=== PATIENT | male | born 1945 | race Caucasian/White ===

== ENCOUNTER 2017-11-11 15:00 | Outpatient (RCR) | payer MEDICARE, BC, SELFPAY ==
--- NOTE | 2017-10-29 14:58 | HP.PTEVAL ---
Patient's Visit Information ANTOINE PEREZ is a 72 year old M referred to Physical Therapy by Jluis Velazco with a diagnosis of Cervical DDD. Date of Evaluation: 10/29/17 Physical Therapist: Carissa Buchanan - Visit Plan Frequency: 2x /Week Duration: 2 Weeks Plan: HEP--Focus on scap s/s and postural awareness- modalities as needed with manual therapy for STM and gently distraction - Subjective Subjective: Patient reports that he has been having trouble with his neck- went to [facility] and they took x-rays and diagnosed him with arthritis. Went last fall and had a predisone dose pack. It comes and goes. Pain is located on the left side and it gives him a HERNANDEZ. Normally once a week- he comes down with a HERNANDEZ. thinks its from mowing the lawn and working outside. Worst: 6/10 Agg: being on his mower. Eases: Meloxicam (15-20 years), Tylenol, rest. Best: 0/10. Describes pain as dull and achy. No N/T in the fingers- no radiating pain. 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 Sleep: occassionally- hard to get comfortable. left hand dominated. PMhx: HTN, cholesterol, multiple knee surgeries,. Meds: flomax, HTN, Meloxicam, cholesterol medication - Objective Posture: FH, RS, Increased kyphosis- raised CT Junction. Palpation: tender along parapsinals of the cervical spine from occiput to Ct Junction on the left>right. upper trap to the tip of the acromion. ROM: cervical flex: decreased by 50% extn: decreased by 25%, SB: decreased by 75% bilateral Rot: decreased by 50%. UE: WNL. Sensation: Reflex: wnl bilaterally. Strength: cervical isometrics: 4+/5, Shoulder: 4+/5 Scap: fair plus. Special Test: compression: positive, distraction: decreases s/s - Goals Goal 1:: Patient will be I with HEP and progression Goal Time Frame: 4-6 Weeks Goal 2:: Patient emerson improve ROM by 25% in each direction Goal Time Frame: 4-6 Weeks Goal 3:: Patient will report 0 HERNANDEZ for 1 week Goal Time Frame: 4-6 Weeks - Rehabilitation Potential Physical Therapy Diagnosis: Patient presents with hypomobility- he has decreasd ROM, strength and muscular endurance leading to poor posture and increased pain Rehabilitation Potential: Good - Anticipated Interventions Patient/Client Instruction: Educate patient on: Benefits of Fitness Program For the Purpose of:: To improve ability to perform ADL's Therapeutic Exercise to Include: Strength training, Endurance training, Agility training, Body mechanics, Postural training For the Purpose of:: To improve muscle performance and motor function Manual Therapy Techniques to Include: Soft tissue mobilization TENS: Yes Cryotherapy (ice pack, ice massage): Yes Thermo therapy (hot pack): Yes Ultrasound (thermal/non thermal): Yes For the Purpose of:: To decrease pain Thank you for the opportunity to evaluate your patient. For Medicare and Medicare HMO plans, please review the plan of care and approve it. It will need to be FAXED BACK to us at [phone] for Medicare purposes. Please let me know if there are questions or concerns regarding this plan of care. Physician Signature: Date:
--- NOTE | 2017-11-11 15:22 | HP.PTDCSUM ---
HP - PT D/C Summary It has been my pleasure to treat ANTOINE PEREZ under orders from Jluis Velazco, for the diagnosis of Cervical DDD for a total of 5 visit(s). Discharge Date: Please see the following information for a summary of their discharge status. - Subjective Subjective: Patient reports that he thinks he is better. Gets sore after looking at the newspaper. Changed his posture on his mower which has helped. No HERNANDEZ - Pain left cerv Pain Intensity (Out of 10): 0 - Overall Improvement % Improvement: 75 - Objective Objective/Function: Posture: FH, RS, Increased kyphosis- raised CT Junction. Palpation: tender along parapsinals of the cervical spine from occiput to Ct Junction on the left>right. upper trap to the tip of the acromion. ROM: cervical flex: decreased by 25% extn: decreased by 15%, SB: decreased by 50% bilateral Rot: decreased by 25%. UE: WNL. Sensation: Reflex: wnl bilaterally. Strength: cervical isometrics: 4+/5, Shoulder: 4+/5 Scap: fair plus. Special Test: compression: positive, distraction: decreases s/s - Goals Goal 1:: Patient will be I with HEP and progression Goal Progress: Goal Met Goal 2:: Patient emerson improve ROM by 25% in each direction Goal Progress: Goal Met Goal 3:: Patient will report 0 HERNANDEZ for 1 week Goal Progress: Goal Met - Plan Plan: Discharge from PT- Continue HEP - D/C Information If there are questions or concerns regarding this patient's physical therapy, please feel free to call me at [phone]. Thank you for the referral of this patient. Sincerely, Carissa Buchanan
== END 2017-11-11 19:00 | disposition home or self-care (01) ==
LOC: PT 15:00
PROVIDERS: Family Provider Family Medicine Geriatric Medicine; PCP Family Medicine Geriatric Medicine; Visit Provider Internal Medicine Rheumatology
DX: M47.812 Spondylosis without myelopathy or radiculopathy, cervical region (principal)
CPT/HCPCS: 97110; 97140; 97162; 97164; 97530

== ENCOUNTER → 2018-02-19 10:59 | Outpatient (CLI) | payer MEDICARE, BC, SELFPAY ==
[2018-02-19 12:23] LABS: Absolute Lymphocyte Count 1.81 X10^3/ul (0.83-4.51); Absolute Neutrophil Count 4.4 X10^3/uL (2.0-7.7); Basophil# 0.01 X10^3/uL; Basophil% 0.1 % (0-1); Eosinophil# 0.23 X10^3/uL; Eosinophils% 3.2 % (0-5); Hematocrit 41.6 % (40-54); Hemoglobin 13.7 g/dl (13.0-16.5); Lymphocyte # 1.81 X10^3/ul (4.0); Lymphocyte % 25.4 % (19-41); Mean Corp Hgb Conc 32.9 g/gl (32-36); Mean Corpuscular Hgb 32.9 pg (27.0-32.0); Mean Corpuscular Volume 99.8 fL (80-94); Mean Platelet Vol. 12.5 fl (6.2-12.0); Monocyte# 0.68 X10^3/uL; Monocyte% 9.5 % (0-10); Neutrophil # 4.38 X10^3/uL (2.7-7.7); Neutrophil % 61.5 % (47-70); Platelet Count 160 K/mm3 (150-450); RBC Distribution Width CV 13.3 % (11.6-14.6); Red Blood Count 4.17 M/mm3 (4.6-6.2); White Blood Count 7.1 K/mm3 (4.4-11.0)
[2018-02-19 12:28] LABS: POSITIVE COUNT NO; POSITIVE DIFFERENTIAL NO; POSITIVE MORPHOLOGY NO
[2018-02-19 13:00] LABS: ALB/GLOB Ratio 1.1 RATIO (0.9-2.4); AST(SGOT) 15 U/L (15-37); Alanine Aminotransfer ALT/SGPT 35 U/L (16-61); Albumin, Serum 3.9 g/dL (3.2-5.0); Alkaline Phosphatase 78 U/L (45-117); Anion Gap 8 (5-15); BUN 18 mg/dL (7-18); Calcium,Total 9.2 mg/dL (8.5-10.1); Chloride 103 mmol/L (98-107); Creatinine, Serum 0.69 mg/dL (0.70-1.30); EST Glomerular Filtration Rate 119 mL/min (>60); Est Glom Filt Rate - Afr Amer 144 mL/min (>60); Globulin 3.4 g/dL (2.2-4.2); Glucose 95 mg/dL (74-106); Protein, Total 7.3 g/dL (6.4-8.2); Sodium Level 139 mmol/L (136-145); Thyroid Stim Hormone (TSH) 0.84 uIU/mL (0.358-3.74); Uric Acid 4.1 mg/dL (3.5-7.2)
[2018-02-19 13:01] LABS: Vitamin D,25 Hydroxy 51.5 ng/mL (29.95-100.01)
[2018-02-20 13:48] LABS: Hep C Antibodies <0.1 s/co ratio (0.0-0.9)
== END ==
PROVIDERS: Family Provider Family Medicine Geriatric Medicine; PCP Family Medicine Geriatric Medicine; Visit Provider Family Medicine Geriatric Medicine
DX: E55.9 Vitamin D deficiency, unspecified (principal); I10 Essential (primary) hypertension; M10.9 Gout, unspecified; Z13.89 Encounter for screening for other disorder
CPT/HCPCS: 36415; 80053; 82306; 84443; 84550; 85025; 86803

== ENCOUNTER 2018-03-09 09:35 | Day surgery (SDC) | payer MEDICARE, BC, SELFPAY ==
[2018-03-09] VITALS (7 sets, daily range): BP systolic 100–146; BP diastolic 62–96; PULSE 63–95; RESP 16–18; TEMP 36.2–36.9; O2SAT 94–97; BMI 30.2
--- NOTE | 2018-03-09 11:08 | OP.ENDO_ITS ---
Patient Name: Al Cordova Procedure Date: 03/09/2018 10:36 AM Date of : 1945 Age: 72 Procedure: Colonoscopy Indications: High risk colon cancer surveillance: Personal history of colonic polyps Providers: Sunny Grant MD Referring MD: Sunny Grant MD Medicines: See the Anesthesia note for documentation of the administered medications Patient Profile: Last Colonoscopy: February 2015. Complications: No immediate complications. Procedure: Pre-Anesthesia Assessment: - Prior to the procedure, a History and Physical was performed, and patient medications and allergies were reviewed. The patient's tolerance of previous anesthesia was also reviewed. The risks and benefits of the procedure and the sedation options and risks were discussed with the patient. All questions were answered, and informed consent was obtained. Prior Anticoagulants: The patient has taken no previous anticoagulant or antiplatelet agents. ASA Grade Assessment: III - A patient with severe systemic disease. After reviewing the risks and benefits, the patient was deemed in satisfactory condition to undergo the procedure. After I obtained informed consent, the scope was passed under direct vision. Throughout the procedure, the patient's blood pressure, pulse, and oxygen saturations were monitored continuously. The colonoscope was introduced through the anus and advanced to the cecum, identified by appendiceal orifice and ileocecal valve. The colonoscopy was performed without difficulty. The patient tolerated the procedure well. The quality of the bowel preparation was adequate to identify polyps 6 mm and larger in size. Scope In: 10:46:08 AM Scope Withdrawal Time 0 hours 6 minutes 29 seconds Scope Out: 11:00:40 AM Total Procedure Duration Time 0 hours 14 minutes 32 seconds Findings: The colon (entire examined portion) appeared normal. No biopsies or other specimens were collected for this exam. Impression: - The entire examined colon is normal. No specimens collected. Recommendation: - Discharge patient to home. - Resume previous diet. - Continue present medications. - Repeat colonoscopy in 10 years for screening purposes. - Return to primary care physician PRN. Procedure Code(s): --- Professional --- G0105, Colorectal cancer screening; colonoscopy on individual at high risk Diagnosis Code(s): --- Professional --- Z86.010, Personal history of colonic polyps CPT copyright 2017 [employer]. All rights reserved. The codes documented in this report are preliminary and upon ultrasound coordinator review may be revised to meet current compliance requirements. MD Sunny Dodson MD 03/09/2018 11:07:45 AM This report has been signed electronically. Number of Addenda: 0 Note Initiated On: 03/09/2018 10:36 AM
== END 2018-03-09 11:40 | disposition home or self-care (01) ==
LOC: EN 09:35 → AC 09:37
PROVIDERS: Family Provider Family Medicine Geriatric Medicine; PCP Family Medicine Geriatric Medicine; Referring Provider Surgery; Visit Provider Surgery
PROC: 0DJD8ZZ Inspection of Lower Intestinal Tract, Via Natural or Artificial Opening Endoscopic (ICD-10-PCS; CPT 45378; principal; 2018-03-09 10:55)
DX: Z86.010 Personal history of colon polyps (principal); E78.49 Other hyperlipidemia; E78.00 Pure hypercholesterolemia, unspecified; I10 Essential (primary) hypertension; M19.90 Unspecified osteoarthritis, unspecified site; Z87.19 Personal history of other diseases of the digestive system; Z90.49 Acquired absence of other specified parts of digestive tract; Z79.899 Other long term (current) drug therapy; Z87.891 Personal history of nicotine dependence
CPT/HCPCS: G0105; J7120

== ENCOUNTER → 2018-05-27 16:20 | Outpatient (CLI) | payer OTHER, MEDICARE, BC, SELFPAY ==
[2018-03-09 09:53] VITALS: BMI 30.2
--- NOTE | 2018-05-27 16:45 | RAD_ITS ---
STUDY: X-RAY - CERVICAL SPINE REASON FOR EXAM: Male, 72 years old. chronic neck pain TECHNIQUE: 3 view(s) of the cervical spine were obtained. COMPARISON: None FINDINGS: Normal cervical lordosis. There is multi-level endplate spondylosis. There is multi-level degenerative disc disease with multilevel disc space narrowing. The soft tissue structures are unremarkable. RAD/Cerv Spine 2 or 3 Views IMPRESSION: Degenerative changes of the spine. Electronically Signed: Luisa Marie MD at 8:29 EST Tel , Service support ,
== END ==
PROVIDERS: Family Provider Family Medicine Geriatric Medicine; PCP Family Medicine Geriatric Medicine; Referring Provider Family Medicine Geriatric Medicine; Visit Provider Family Medicine Geriatric Medicine
DX: M54.2 Cervicalgia (principal)
CPT/HCPCS: 72040

== ENCOUNTER → 2018-07-23 11:16 | Outpatient (CLI) | payer MEDICARE, BC, SELFPAY ==
[2018-07-09 15:05] VITALS: BMI 34.9
[2018-07-22 13:59] VITALS: BMI 34.9
[2018-07-23 13:05] LABS: PSA,Total- Diagnostic 4.12 ng/mL (0.0-4.0)
== END ==
PROVIDERS: Family Provider Family Medicine Geriatric Medicine; PCP Family Medicine Geriatric Medicine; Referring Provider Urology; Visit Provider Urology
DX: R97.20 Elevated prostate specific antigen [PSA] (principal)
CPT/HCPCS: 36415; 84153

== ENCOUNTER → 2019-02-18 11:27 | Outpatient (CLI) | payer MEDICARE, BC, SELFPAY ==
[2018-03-09 09:53] VITALS: BMI 30.2
[2018-09-21 14:05] VITALS: BMI 34.9
[2019-02-18 12:43] LABS: Absolute Lymphocyte Count 1.78 X10^3/uL (0.83-4.51); Absolute Neutrophil Count 4.9 X10^3/uL (2.0-7.7); Basophil# 0.04 X10^3/uL; Basophil% 0.5 % (0-1); Eosinophil# 0.11 X10^3/uL; Eosinophils% 1.4 % (0-5); Hematocrit 41.1 % (40-54); Hemoglobin 13.6 g/dL (13.0-16.5); Lymphocyte # 1.78 X10^3/ul (4.0); Lymphocyte % 23.3 % (19-41); Mean Corp Hgb Conc 33.1 g/dL (32-36); Mean Corpuscular Hgb 33.3 pg (27.0-32.0); Mean Corpuscular Volume 100.7 fL (80-94); Mean Platelet Vol. 12.7 fl (6.2-12.0); Monocyte# 0.79 X10^3/uL; Monocyte% 10.3 % (0-10); NRBC Flagged by Analyzer 0 % (0-5); Neutrophil # 4.85 X10^3/uL (2.7-7.7); Neutrophil % 63.6 % (47-70); Platelet Count 167 K/mm3 (150-450); RBC Distribution Width CV 13.2 % (11.6-14.6); RBC Distribution Width SD 48.8 fl (35.1-43.9); Red Blood Count 4.08 M/mm3 (4.6-6.2); White Blood Count 7.6 K/mm3 (4.4-11.0)
[2019-02-18 13:05] LABS: Vitamin D,25 Hydroxy 57.8 ng/mL (29.95-100.01)
[2019-02-18 13:10] LABS: ALB/GLOB Ratio 1.1 RATIO (0.9-2.4); AST(SGOT) 21 U/L (15-37); Alanine Aminotransfer ALT/SGPT 50 U/L (16-61); Alkaline Phosphatase 86 U/L (45-117); Anion Gap 3 (5-15); BUN 18 mg/dL (7-18); BUN/Creat Ratio 23.5 RATIO (10-20); Calcium,Total 9.3 mg/dL (8.5-10.1); Chloride 104 mmol/L (98-107); Creatinine, Serum 0.77 mg/dL (0.70-1.30); EST Glomerular Filtration Rate 106 mL/min (>60); Est Glom Filt Rate - Afr Amer 128 mL/min (>60); Globulin 3.6 g/dL (2.2-4.2); Glucose 104 mg/dL (74-106); Potassium 4.2 mmol/L (3.5-5.1); Protein, Total 7.6 g/dL (6.4-8.2); Sodium Level 137 mmol/L (136-145); Thyroid Stim Hormone (TSH) 0.97 uIU/mL (0.358-3.74); Uric Acid 4.4 mg/dL (3.5-7.2)
== END ==
PROVIDERS: Family Provider Family Medicine Geriatric Medicine; PCP Family Medicine Geriatric Medicine; Visit Provider Family Medicine Geriatric Medicine
DX: E55.9 Vitamin D deficiency, unspecified (principal); I10 Essential (primary) hypertension; M10.9 Gout, unspecified
CPT/HCPCS: 36415; 80053; 82306; 84443; 84550; 85025

== ENCOUNTER → 2019-12-10 13:44 | Outpatient (CLI) | payer MEDICARE, BC, SELFPAY ==
[2018-09-21 14:05] VITALS: BMI 34.9
[2019-12-10 15:28] LABS: PSA,Total- Diagnostic 6.25 ng/mL (0.0-4.0)
== END ==
PROVIDERS: PCP Family Medicine Geriatric Medicine; Referring Provider Urology; Visit Provider Urology
DX: R97.20 Elevated prostate specific antigen [PSA] (principal)
CPT/HCPCS: 36415; 84153

== ENCOUNTER 2020-01-05 15:18 | Inpatient (IN) | payer MEDICARE, BC, SELFPAY ==
[2018-09-21 14:05] VITALS: BMI 34.9
[2020-01-05] VITALS (19 sets, daily range): BP systolic 78–146; BP diastolic 58–100; PULSE 100–143; RESP 18–31; TEMP 36.5–37.3; O2SAT 89–95; BMI 36.3; BMI 35.9
[2020-01-05] MEDS: Adenosine 6 MG/2 ML Syringe IV (15:46)
[2020-01-05] MEDS: dilTIAZem 25 MG/5 ML Vial IV BOLUS (15:49)
--- NOTE | 2020-01-05 15:53 | EKG12_ITS ---
Test Reason : Blood Pressure : / mmHG Vent. Rate : 105 BPM Atrial Rate : 133 BPM P-R Int : 000 ms QRS Dur : 156 ms QT Int : 410 ms P-R-T Axes : 000 -46 099 degrees QTc Int : 541 ms Atrial Flutter Left axis deviation Left bundle branch block Abnormal ECG Confirmed by AMRITA JULIEN, CLAUDIO ([id number]), loan expeditor MAGEN REYEZ ([id number]) on 01/07/2020 2:40:50 PM Referred By: RYLEY Confirmed By:KIM CROWE MD
[2020-01-05 16:06] LABS: Absolute Lymphocyte Count 1.37 X10^3/uL (0.83-4.51); Basophil# 0.02 X10^3/uL; Basophil% 0.2 % (0-1); Eosinophil# 0.25 X10^3/uL; Eosinophils% 2.5 % (0-5); Hematocrit 40.4 % (40-54); Hemoglobin 13.4 g/dL (13.0-16.5); Lymphocyte # 1.37 X10^3/ul (4.0); Mean Corp Hgb Conc 33.2 g/dL (32-36); Mean Corpuscular Hgb 33.5 pg (27.0-32.0); Mean Platelet Vol. 13.6 fl (6.2-12.0); Monocyte# 1.07 X10^3/uL; Monocyte% 10.9 % (0-10); NRBC Flagged by Analyzer 0 % (0-5); Neutrophil # 7.04 X10^3/uL (2.7-7.7); Neutrophil % 71.8 % (47-70); Platelet Count 178 K/mm3 (150-450); RBC Distribution Width CV 13.8 % (11.6-14.6); RBC Distribution Width SD 50.4 fl (35.1-43.9); White Blood Count 9.8 K/mm3 (4.4-11.0)
--- NOTE | 2020-01-05 16:10 | RAD_ITS ---
STUDY: X-RAY CHEST REASON FOR EXAM: Male, 74 years old. Seen at doctor''s office for shortness of breath. EKG showed SVT. TECHNIQUE: Single AP portable view of the chest. COMPARISON: 02/07/2012. FINDINGS: The lungs are well expanded. There is increased density at both lung bases similar to the prior study thought to be chronic scarring. There is no new mass or infiltrate. There is no demonstrated pleural abnormality. The heart is mildly enlarged. Normal mediastinum and preethi. Normal visualized pulmonary arteries. Normal visualized aortic arch and descending thoracic aorta. There are diffuse degenerative changes of the visualized thoracic spine. Normal visualized ribs, clavicles, and shoulders. There is no demonstrated abnormality of the visualized soft tissue structures of the upper abdomen. RAD/Chest 1 View (Portable) IMPRESSION: 1. Mild cardiomegaly. 2. Bibasilar densities thought to be chronic. There is no acute pulmonary disease. Electronically Signed: Tk Phillip DO at 16:30 EDT Tel [phone], Service support ,
[2020-01-05 16:26] LABS: BUN 21 mg/dL (7-18); Creatinine, Serum 0.75 mg/dL (0.70-1.30); Estimated Creatinine Clearance 61.75 ml/min; Glucose 116 mg/dL (74-106)
[2020-01-05 16:27] LABS: AST(SGOT) 17 U/L (15-37); Alanine Aminotransfer ALT/SGPT 42 U/L (16-61); Albumin, Serum 3.7 g/dL (3.2-5.0); Alkaline Phosphatase 96 U/L (45-117); Anion Gap 6 (5-15); Calcium,Total 8.9 mg/dL (8.5-10.1); Chloride 106 mmol/L (98-107); EST Glomerular Filtration Rate 108 mL/min (>60); Est Glom Filt Rate - Afr Amer 130 mL/min (>60); Globulin 3.6 g/dL (2.2-4.2); Potassium 3.8 mmol/L (3.5-5.1); Protein, Total 7.3 g/dL (6.4-8.2); Sodium Level 138 mmol/L (136-145)
[2020-01-05 16:41] LABS: International Normalized Ratio 1.1; Partial Thromboplast Time 37.5 Seconds (24.1-36.2); Prothrombin Time (Protime)PT. 14.1 SECONDS (11.7-14.9)
--- NOTE | 2020-01-05 17:02 | NURSING ---
ICU ASHELFAH AFIB WITH RVR, SEPTIC SHOCK, PNEUMONIA, ELEVATED TROP
--- NOTE | 2020-01-05 17:13 | ED.DCSUM_ITS ---
- ER Visit Summary Date of Service: 01/05/20 Chief Complaint: Cough and sore throat History of Present Illness: The patient is a 74 M who presents with cough and sore throat that is been getting worse over the past 3 days. Patient states he has a dull pain in his throat. Patient states nothing makes it better or worse. Patient saw his primary care physician today who noticed that he had a heart rate of 146. Patient was then referred to the emergency department. Patient denies any chest pain or palpitations. Patient admits to some mild shortness of breath with exertion. Patient denies any nausea or vomiting. Patient denies any fevers or chills. Physical Examination: Vital signs are stable except for a tachycardia of 143. Patient is afebrile. Patient is in no acute distress. Oral mucosa is pink and moist. Neck is supple. Trachea is midline. There is no JVD. Heart was irregularly irregular and tachycardic. Lungs are clear and equal bilaterally. Abdomen is soft. Bowel sounds are normal. There is no tenderness. Cranial nerves II through XII are intact. There are no focal motor or sensory deficits noted. Extremities are intact. There is no calf tenderness or edema. Test Results: Initial EKG showed supraventricular tachycardia with a rate of 141. There is a left bundle branch block pattern noted. There are no acute ST or T wave changes. There are no prior EKGs available for comparison. Chest x- ray shows chronic changes but no acute cardiopulmonary process. This was interpreted by the radiologist and reviewed by myself. CBC was within normal limits. Comprehensive metabolic profile was essentially within normal limits. PT with INR and PTT were normal. Troponin was normal. Emergency Department Course and Treatment: Patient was given adenosine initially. Patient's heart rate slows down and flutter waves were noted. Patient was given a dose of Cardizem. Patient's heart rate improved with this. Patient then got up to use the urinal and his heart rate went back up into the 120s 130s. Patient was given a dose of oral Cardizem. Case was discussed with the hospitalist, Dr. Matson. He will admit the patient to PCU. Patient and family understood and were agreeable with the plan. All questions were answered. Disposition: Admit to PCU Impression: Atrial flutter with rapid ventricular response This note was generated with [employer] dictation software. It may contain incorrect words, spelling, and punctuation that were not noted in review of the chart prior to signing ED Disposition - Plan for ED Patient: Disposition: Acute Care Hospital [facility] Diagnosis: Atrial flutter with rapid ventricular response Referrals: Vinod Kirby Chi, MD [Primary Care Provider] -
--- NOTE | 2020-01-05 17:49 | NURSING ---
PCU ASHELFAH ATRIAL FLUTTER WITH RVR
[2020-01-05] MEDS: dilTIAZem 60 MG Tablet PO (18:04)
--- NOTE | 2020-01-05 18:06 | PCM.HP.STD ---
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 The patient is a 74 year old M who presents the emergency room due to 3 to 4-day history of shortness of breath, cough and sore throat. Patient denies fever, chills. He was seen at PCP office today and noted to have elevated heart rate and was referred to the emergency room for further evaluation. He denies chest pain. Denies history of arrhythmia. He denies exposure to sick contacts. He feels his sense of taste/smell might be slightly off as well. He denies history of underlying heart disease. He does admit to alcohol use 6 days/week with 3-4 strong drinks per night. suggest he may be underestimating his alcohol intake. He has a past medical history of hypertension, hyperlipidemia, gout, BPH. Past Medical History Past Medical History (Chronic Problems): Chronic Problems (Last Reviewed 09/21/18 @ 14:04 by Deanna Velazco) 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) Acute cervical sprain (Chronic) 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) Benign essential hypertension (Chronic) Medical History: Medical History (Last Reviewed 09/21/18 @ 14:04 by Deanna Velazco) Familial combined hyperlipidemia (Chronic) E78.4 Benign essential hypertension (Chronic) I10 Arthritis M19.90 Gallstones K80.20 High cholesterol E78.00 Osteoarthritis M19.90 Hypertension I10 Allergies Sulfa (Sulfonamide Antibiotics) Allergy (Intermediate, Verified 01/05/20 15:20) Hives Home Medications: Ambulatory Orders Medication Instructions Recorded allopurinol 300 mg tablet 300 mg PO DAILY 03/02/18 bee pollen 500 mg tablet 500 mg PO DAILY tab 03/02/18 glucosamine 500 mg-chondroit 400 2 cap PO DAILY cap 03/02/18 mg-vit C 2 mg-tay 0.33 mg capsule losartan 50 mg tablet 50 mg PO DAILY 03/02/18 meloxicam 15 mg tablet 15 mg PO DAILY 03/02/18 pravastatin 40 mg tablet 40 mg PO DAILY 03/02/18 Tamsulosin HCl [Flomax] 0.4 mg PO DAILY 03/05/18 Surgical History: Surgical History (Last Reviewed 09/21/18 @ 14:04 by Deanna Velazco) History of colectomy Z90.49 History of knee surgery Z98.890 History of laparoscopic cholecystectomy Z90.49 history bilateral cataract surgery Psychiatric History: No pertinent psych hx Lives: Spouse/ Significant Other Smoking Status: Former smoker Alcohol: Heavy Drugs: None - *Family History Maternal Family History: Family History (Last Reviewed 09/21/18 @ 14:04 by Deanna Velazco) Son Asthma History Items: - - CVA Paternal Family History: Family History (Last Reviewed 09/21/18 @ 14:04 by Deanna Velazco) Son Asthma History Items: - - in World War II Review of Systems Constitutional: Reports: Malaise. Denies: Chills, Fever HEENT: Reports: Sore Throat. Denies: Head Aches, Sinus Congestion, Sinus Drainage Cardiovascular: Denies: Chest Pain, Edema, Palpitations, Syncope Respiratory: Reports: Cough, Shortness of Breath. Denies: Sputum production Gastrointestinal: Denies: Abdominal Pain, Nausea, Vomiting Genitourinary: Denies: Dysuria Musculoskeletal: Denies: Joint Pain, Joint Tenderness Skin: Denies: Rash, Wounds Neurological: Denies: Numbness, Tingling, Focal weakness Psychiatric: Denies: Anxiety, Depression, Homicidal Ideations, Suicidal Ideations Hematologic/ Lymphatic: Denies: Easy Bruising, Easy Bleeding VTE Information - Inpt Only VTE Present on Admission: No VTE Mechan Device Prophylaxis: None VTE Pharm Prophylaxis ordered?: Yes Patient Problems: Active and Suspected Problems (Last Reviewed 09/21/18 @ 14:04 by Deanna Velazco) Atrial flutter with rapid ventricular response (Acute) - Physical Exam Vitals/I&O's: Vital Signs Temp Pulse Resp BP Pulse Ox 97.7 F L 122 H 20 H 134/68 H 94 01/05/20 15:20 01/05/20 17:27 01/05/20 17:27 01/05/20 17:27 01/05/20 17:27 Oxygen Flow Rate (L/min) 2.5 Oxygen Delivery Method Nasal Cannula Weight: 239 lb Body Mass Index (BMI) 36.3 General: Alert, Oriented x3, Cooperative HEENT: Atraumatic, PERRLA, EOMI, Normocephalic Neck: Supple, No JVD, Negative Carotid Bruits Lungs: Clear to auscultation, Normal air movement Cardiovascular: No murmurs, Tachycardic Abdomen: Bowel Sounds Present, Soft, Non Tender, Non-Distended Extremities: No clubbing, No cyanosis, No edema, Capillary Refill Less than 3 Seconds Skin: No rashes, No breakdown Musculoskeletal: No Tenderness to Palpation of Joints or Extremities Neurological: Cranial nerves II-XII grossly intact, Neuro grossly intact Psych/Mental Status: Normal Affect, Appropriate Laboratory Results 01/05/20 15:36: WBC 9.8, RBC 4.00 L, Hgb 13.4, Hct 40.4, MCV 101.0 H, MCH 33.5 H, MCHC 33.2, RDW Std Deviation 50.4 H, RDW Coeff of Betsy 13.8, Plt Count 178, MPV 13.6 H, Immature Gran % (Auto) 0.600, Neut % (Auto) 71.8 H, Lymph % (Auto) 14.0 L, [place] % (Auto) 10.9 H, Eos % (Auto) 2.5, Baso % (Auto) 0.2, Absolute Neuts (auto) 7.0, Absolute Lymphs (auto) 1.37, Nucleated RBC % 0 01/05/20 15:36: PT 14.1, INR 1.1, APTT 37.5 H 01/05/20 15:36: Sodium 138, Potassium 3.8, Chloride 106, Carbon Dioxide 26.0, Anion Gap 6, BUN 21 H, Creatinine 0.75, Estim Creat Clear Calc 61.75, Est GFR (MDRD) Af Amer 130, Est GFR (MDRD) Non-Af 108, BUN/Creatinine Ratio 28.0 H, Glucose 116 H, Calcium 8.9, Total Bilirubin 0.70, AST 17, ALT 42, Alkaline Phosphatase 96, Troponin I < 0.015, Total Protein 7.3, Albumin 3.7, Globulin 3.6, Albumin/Globulin Ratio 1.0 Assessment/Plan All Active Problems (Last Reviewed 09/21/18 @ 14:04 by Deanna Velazco) Atrial flutter with rapid ventricular response (Acute) 1. New onset arrhythmia, paroxysmal atrial flutter with RVR/SVT-initial EKG in ER demonstrates SVT. On telemetry appears to have intermittent atrial flutter with RVR. Requested repeat EKG in ER. Adenosine in ER unsuccessful. Initiate Cardizem drip. Trend enzymes. Obtain echocardiogram. Therapeutic Lovenox. Cardiology consult. 2. Shortness of breath/cough/sore throat-no fever, chills. Lab work unremarkable. Obtain COVID test. Chest x-ray unremarkable. 3. Alcohol dependence- CIWA. Begin thiamine, multivitamin, folic acid supplementation. EtOH use possibly contributing to #1. 4. Hypertension-stable, continue losartan regimen. 5. Hyperlipidemia-continue statin. 6. BPH-continue Flomax. 7. Gout-continue allopurinol. DVT prophylaxis-therapeutic Lovenox This patient was seen by ROSETTA Portillo under the supervision of Dr. Matson. <Mario Matson - Last Filed: 01/05/20 18:39> History of Present Illness The patient is a 74 year old M [] Past Medical History Medical History: Medical History (Last Reviewed 09/21/18 @ 14:04 by Deanna Velazco) Familial combined hyperlipidemia (Chronic) E78.4 Benign essential hypertension (Chronic) I10 Arthritis M19.90 Gallstones K80.20 High cholesterol E78.00 Osteoarthritis M19.90 Hypertension I10 Allergies Sulfa (Sulfonamide Antibiotics) Allergy (Intermediate, Verified 01/05/20 15:20) Hives Surgical History: Surgical History (Last Reviewed 09/21/18 @ 14:04 by Deanna Velazco) History of colectomy Z90.49 History of knee surgery Z98.890 History of laparoscopic cholecystectomy Z90.49 history bilateral cataract surgery - *Family History Maternal Family History: Family History (Last Reviewed 09/21/18 @ 14:04 by Deanna Velazco) Son Asthma Paternal Family History: Family History (Last Reviewed 09/21/18 @ 14:04 by Deanna Velazco) Son Asthma - Physical Exam Vitals/I&O's: Vital Signs Temp Pulse Resp BP Pulse Ox 97.7 F L 122 H 20 H 134/68 H 94 01/05/20 15:20 01/05/20 17:27 01/05/20 17:27 01/05/20 17:27 01/05/20 17:27 Oxygen Flow Rate (L/min) 2.5 Oxygen Delivery Method Nasal Cannula Weight: 239 lb Body Mass Index (BMI) 36.3 Laboratory Results 01/05/20 15:36: WBC 9.8, RBC 4.00 L, Hgb 13.4, Hct 40.4, MCV 101.0 H, MCH 33.5 H, MCHC 33.2, RDW Std Deviation 50.4 H, RDW Coeff of Betsy 13.8, Plt Count 178, MPV 13.6 H, Immature Gran % (Auto) 0.600, Neut % (Auto) 71.8 H, Lymph % (Auto) 14.0 L, [place] % (Auto) 10.9 H, Eos % (Auto) 2.5, Baso % (Auto) 0.2, Absolute Neuts (auto) 7.0, Absolute Lymphs (auto) 1.37, Nucleated RBC % 0 01/05/20 15:36: PT 14.1, INR 1.1, APTT 37.5 H 01/05/20 15:36: Sodium 138, Potassium 3.8, Chloride 106, Carbon Dioxide 26.0, Anion Gap 6, BUN 21 H, Creatinine 0.75, Estim Creat Clear Calc 61.75, Est GFR (MDRD) Af Amer 130, Est GFR (MDRD) Non-Af 108, BUN/Creatinine Ratio 28.0 H, Glucose 116 H, Calcium 8.9, Total Bilirubin 0.70, AST 17, ALT 42, Alkaline Phosphatase 96, Troponin I < 0.015, Total Protein 7.3, Albumin 3.7, Globulin 3.6, Albumin/Globulin Ratio 1.0 Assessment/Plan Hospitalist note: I am seeing this patient in conjunction with Allie Taveras. I independently seen and examined the patient. History and physical, laboratory data and imaging studies reviewed and I concur with above admission and treatment plan. Patient was sent from his PCPs office today after he was found to have fast heart rate and he was sent for evaluation. He has been having symptoms of shortness of breath over the last 3 to 4 days, shortness of breath on exertion, associated with dry cough as well as sore throat, no aggravating or relieving factors and no other associated symptoms. He denied fever or chills. He denied palpitation, dizziness, lightheadedness, syncope or presyncope. He denied chest pain. In the emergency department, patient was found to have heart rate of up to 140s. EKG revealed wide complex tachycardia, questionable A. fib or flutter. He was given IV adenosine and IV Cardizem bolus but heart rate remained fluctuating up and down. Blood pressure was stable, was afebrile. Pulse ox was 91% on room air. Routine blood work was unremarkable. Troponin was negative. Chest x-ray revealed right basilar haziness likely due to atelectasis. COVID 19 PCR sent and it is pending. He is being admitted for cardiac arrhythmia, questionable atrial flutter with RVR and he has been having symptoms of shortness of breath, cough and sore throat concerning for COVID-19. - Physical Exam General: Alert, Oriented x3, Cooperative, No apparent distress. HEENT: Atraumatic, PERRLA, EOMI. Neck: Supple, No JVD, Negative Carotid Bruits, Trachea Midline, Thyroid Normal. Lungs: Diminished breath sounds bilateral, otherwise clear, No rhonchi, No wheeze, No rales. Cardiovascular: Irregular rate and rhythm, Normal S1, Normal S2, PMI Normal, tachycardia. Abdomen: Bowel Sounds Present, Soft, Non Tender, Non-Distended, No Hepato-splenomegaly. Extremities: No clubbing, No cyanosis, No edema Skin: No rashes, No breakdown Neurological: Cranial nerves are intact, neuro grossly intact Assessment and plan: #1 cardiac arrhythmia: Questionable atrial flutter with RVR. EKG reviewed, revealed wide complex tachycardia, LBBB. Troponin is negative. Heart rate did not slow down with IV adenosine and IV Cardizem bolus. Plan: Admit to PCU, cardiac monitoring, serial cardiac enzymes, start IV Cardizem drip, check serum magnesium, TSH, 2D echocardiogram, start therapeutic Lovenox twice daily, cardiology consult, repeat CBC and BMP tomorrow morning, gentle IV fluids for hydration, PT OT evaluation and treatment. #2 shortness of breath/cough/sore throat: Chest x-ray reviewed as above. COVID-19 PCR sent and it is pending. If COVID-19 PCR came back positive, patient need to go to COVID floor. #3 alcohol abuse: LFT was unremarkable. INR is normal. Plan: Thiamine, folic acid, CIWA. #4 other chronic medical problems: Stable, continue current medications as above. This note was generated with [employer] dictation software. It may contain incorrect words, spelling, and punctuation that were not noted in checking the note before signing. Inpatient E&M: 35900 Init Hosp L3
--- NOTE | 2020-01-05 18:07 | EKG12_ITS ---
Test Reason : AM Blood Pressure : / mmHG Vent. Rate : 099 BPM Atrial Rate : 079 BPM P-R Int : 154 ms QRS Dur : 158 ms QT Int : 428 ms P-R-T Axes : 000 -19 124 degrees QTc Int : 549 ms Atrial Flutter with variable AV conduction Left bundle branch block Abnormal ECG Confirmed by JIMMY JULIEN, KELSEY ([id number]), communications editor CESAR MARTINEZ ([id number]) on 01/12/2020 1:15:35 PM Referred By: SATISH Confirmed By:KELSEY MARQUEZ MD
[2020-01-05 20:10] LABS: Probe Check PASS; Specimen Processing Control PASS
--- NOTE | 2020-01-05 20:18 | ED.RN ---
RN NOTIFIED DR FISHER THAT 30 MINUTES POST ORAL CARDIZEM DOSE PATIENT STILL HAS HEART RATE IN THE 140'S. DR FISHER INFORMED RN TO PAGE DR. COVARRUBIAS TO GET FURTHER ORDERS SINCE PATIENT IS UNDER HIS ADMISSION BUT AWAITING RESULT OF COVID TEST FOR ROOM ASSIGNMENT. RN PAGED DR. COVARRUBIAS WITH NO RESPONSE. PATIENT IS STABLE WITH HEART RATE IN THE 140'S. RN WILL CONTINUE TO MONITOR.
--- NOTE | 2020-01-05 20:40 | ECHOCS_ITS ---
Reason For Study: AFIB Procedure This was a 2D Doppler, Color Flow transthoracic echocardiogram. The study was technically difficult. Contrast injection was performed. Exam performed portable in patient room. Left Ventricle Normal LV size. The estimated ejection fraction is 40 %. Stage 1 diastolic dysfunction. hypokinesis of the apex, anterior wall and septum. Right Ventricle Normal RV size. Normal systolic function. Atria The left atrium is moderately enlarged. The right atrium is moderately enlarged. No doppler evidence for ASD. Mitral Valve There is no mitral valve stenosis. Trivial mitral valve insufficiency. Tricuspid Valve There is no tricuspid stenosis. Trivial tricuspid valve insufficiency. Unable to estimate RV systolic pressure due to insufficient tricuspid regurgitant envelope. Aortic Valve Trisinus/trileaflet aortic valve. There is no aortic stenosis. No aortic valve insufficiency. Pulmonic Valve There is no pulmonic valvular stenosis. No pulmonic valve insufficiency. Great Vessels Normal aortic root. Pericardium/Pleural No pericardial effusion. Medication Diluted definity 8ml given slow IV push to enhance endocardial definition. MMode/2D Measurements & Calculations LVIDd: 4.9 cm IVSd: 0.94 cm Ao root diam: 3.5 cm LVIDs: 3.3 cm LVPWd: 0.96 cm RVDd: 4.2 cm FS: 31.1 % LAV(MOD-bp): 114.3 ml LVAd ap4: 37.9 cm2 SV(MOD-sp4): 45.9 ml LAV(MOD-bp) Indexed: 52.2 ml/m2 EDV(MOD-sp4): 131.3 ml LAV(MOD-sp2): 128.5 ml EDV(sp4-el): 138.7 ml LAV(MOD-sp4): 100.5 ml LVAs ap4: 28.6 cm2 ESV(MOD-sp4): 85.4 ml ESV(sp4-el): 86.8 ml EF(MOD-sp4): 34.9 % EF(sp4-el): 37.4 % SV(sp4-el): 51.8 ml LA A4 area: 29.5 cm2 LA dimension(2D): 4.3 cm RA A4 area: 16.6 cm2 Time Measurements MV dec time: 0.11 sec Doppler Measurements & Calculations MV E max navneet: 112.6 cm/sec Lat Peak E' Navneet: 5.6 cm/sec Med Peak E' Navneet: 6.3 cm/sec MV A max navneet: 59.9 cm/sec E/E' lat: 20.3 E/E' med: 18.0 MV E/A: 1.9 Ao V2 max: 141.9 cm/sec LV V1 max: 123.7 cm/sec PA V2 max: 107.6 cm/sec Ao max P.2 mmHg LV V1 max P.2 mmHg TR max navneet: 348.6 cm/sec TR max P.6 mmHg Interpretation Summary The study was technically difficult. Contrast injection was performed. The estimated ejection fraction is 40 %. hypokinesis of the apex, anterior wall and septum Stage 1 diastolic dysfunction. Trivial mitral valve insufficiency. The study was technically difficult. Contrast injection was performed. Ordering Physician: Mario Matson Referring Physician: AVNI WALKER Performed By: Cherri Marcano, RDCS, RVT
[2020-01-05] MEDS: 0.9% Normal Saline 1,000 ML 75 ML IV (21:11)
[2020-01-05 21:12] LABS: Magnesium 2.1 mg/dL (1.6-2.6); Thyroid Stim Hormone (TSH) 0.94 uIU/mL (0.358-3.74)
[2020-01-05] MEDS: 0.9% Saline Lock 10 ML Syringe IV ×2 (21:12→21:35)
[2020-01-05] MEDS: Enoxaparin 100 MG/ML Syringe SC (21:34)
[2020-01-05] MEDS: Pravastatin 40 MG Tablet PO (23:18)
[2020-01-05] MEDS: Tamsulosin HCl 0.4 MG Capsule PO (23:18)
[2020-01-05] MEDS: TITRATION PARAMETER CHANGE 1 EACH IV (23:21)
[2020-01-06] VITALS (33 sets, daily range): BP systolic 94–159; BP diastolic 46–112; PULSE 64–140; RESP 18–31; TEMP 36.4–37.3; O2SAT 88–95
[2020-01-06 02:48] LABS: Absolute Lymphocyte Count 1.37 X10^3/uL (0.83-4.51); Absolute Neutrophil Count 7.6 X10^3/uL (2.0-7.7); Basophil# 0.03 X10^3/uL; Basophil% 0.3 % (0-1); Eosinophil# 0.31 X10^3/uL; Hematocrit 36.5 % (40-54); Hemoglobin 12.1 g/dL (13.0-16.5); Lymphocyte # 1.37 X10^3/ul (4.0); Lymphocyte % 13.2 % (19-41); Mean Corp Hgb Conc 33.2 g/dL (32-36); Mean Corpuscular Hgb 33.6 pg (27.0-32.0); Mean Corpuscular Volume 101.4 fL (80-94); Mean Platelet Vol. 12.6 fl (6.2-12.0); Monocyte# 1.05 X10^3/uL; Monocyte% 10.1 % (0-10); NRBC Flagged by Analyzer 0 % (0-5); Neutrophil # 7.57 X10^3/uL (2.7-7.7); Neutrophil % 72.9 % (47-70); Platelet Count 165 K/mm3 (150-450); RBC Distribution Width CV 13.8 % (11.6-14.6); RBC Distribution Width SD 51.4 fl (35.1-43.9); White Blood Count 10.4 K/mm3 (4.4-11.0)
[2020-01-06 03:02] LABS: Anion Gap 6 (5-15); BUN 16 mg/dL (7-18); BUN/Creat Ratio 25.4 RATIO (10-20); Calcium,Total 8.5 mg/dL (8.5-10.1); Chloride 109 mmol/L (98-107); Creatinine, Serum 0.63 mg/dL (0.70-1.30); EST Glomerular Filtration Rate 132 mL/min (>60); Est Glom Filt Rate - Afr Amer 160 mL/min (>60); Estimated Creatinine Clearance 61.75 ml/min; Glucose 96 mg/dL (74-106); Potassium 3.7 mmol/L (3.5-5.1); Sodium Level 140 mmol/L (136-145)
--- NOTE | 2020-01-06 05:55 | EKG12_ITS ---
Test Reason : Blood Pressure : / mmHG Vent. Rate : 141 BPM Atrial Rate : 141 BPM P-R Int : 112 ms QRS Dur : 152 ms QT Int : 342 ms P-R-T Axes : 083 -55 122 degrees QTc Int : 523 ms Atrial Flutter with 2:1 block Left axis deviation Left bundle branch block Abnormal ECG Confirmed by AMRITA JULIEN, CLAUDIO ([id number]), field map editor MAGEN REYEZ ([id number]) on 01/07/2020 2:41:40 PM Referred By: ENZO Confirmed By:KIM CROWE MD
--- NOTE | 2020-01-06 07:49 | CON.PCM_ITS ---
Reason for Consult Date of Consultation: 01/06/20 Reason for Consultation: Evaluation of fast heart rate History of Present Illness: The patient is a 74 year old M with no previous cardiac history who presented to his primary care physician's office complaining of not feeling well. He thought that he had a mild cold and may be a sore throat. While he was in the office he had his blood pressure and heart rate checked and they were noted to be elevated he was sent to the emergency room. His EKG done in the doctor's office demonstrated a wide-complex tachycardia with a rate of approximately 130 bpm. He was seen in the emergency room and this confirmed the same. He appeared to be in atrial fibrillation flutter with a left bundle branch block pattern. He was tested for COVID which was negative and he was admitted on the intravenous Cardizem drip as well as anticoagulation. He has not had any chest pain or paroxysmal nocturnal dyspnea or pedal edema in the past. He does have alcohol consumption use almost daily. He has had no dizziness or diaphoresis no near syncope or syncope. [] Past Medical History Allergies/Adverse Reactions: Allergies Sulfa (Sulfonamide Antibiotics) Allergy (Intermediate, Verified 01/05/20 15:20) Hives Home Medications: Ambulatory Orders Medication Instructions Recorded losartan 50 mg tablet 50 mg PO DAILY 03/02/18 meloxicam 15 mg tablet 15 mg PO DAILY 03/02/18 pravastatin 40 mg tablet 40 mg PO DAILY 03/02/18 Tamsulosin HCl [Flomax] 0.4 mg PO DAILY 03/05/18 Allopurinol [Zyloprim] 300 mg PO DAILY 01/05/20 Bee Pollen 550 mg PO DAILY 01/05/20 Cholecalciferol (Vitamin D3) 5,000 unit PO DAILY 01/05/20 [Vitamin D3] Hydrochlorothiazide 12.5 mg PO DAILY 01/05/20 Past Medical History (Chronic Problems): Chronic Problems (Last Reviewed 09/21/18 @ 14:04 by Deanna Velazco) 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) Acute cervical sprain (Chronic) 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) Benign essential hypertension (Chronic) Psychiatric History: No pertinent psych hx - *Family History Maternal Family History: Family History (Last Reviewed 09/21/18 @ 14:04 by Deanna Velazco) Son Asthma History Items: - - CVA Paternal Family History: Family History (Last Reviewed 09/21/18 @ 14:04 by Deanna Velazco) Son Asthma History Items: - - in [place] War [place] Lives: Spouse/ Significant Other Smoking Status: Former smoker Alcohol: Heavy Drugs: None Review of Systems - Review of Systems General: Reports: Malaise. Denies: Fever, Fatigue, Night Sweats HEENT: Reports: Sore Throat. Denies: Eye Pain Cardiovascular: Reports: Shortness of Breath. Denies: Chest Discomfort, Orthopnea, PND, Peripheral Edema, Palpitations, Lightheadedness, Dizziness, Near Syncope, Syncope Respiratory: Denies: Cough, Sputum Production, Hemoptysis Gastrointestinal: Denies: Indigestion, Hematemesis, Hematochezia, Melena Genitourinary: Denies: Dysuria, Hematuria Skin: Denies: Rash Neurological: Denies: Dizziness Psychiatric: Denies: Anxiety Endocrine: Denies: Excessive Sweating Subjectve: Pleasant gentleman in no distress sitting in bed on low-flow oxygen Objective: Vital Signs Temp Pulse Resp BP Pulse Ox 98.4 F 99 25 H 125/73 H 94 01/06/20 07:00 01/06/20 07:00 01/06/20 07:00 01/06/20 07:00 01/06/20 07:40 Oxygen Flow Rate (L/min) 6 Oxygen Delivery Method Nasal Cannula Weight: 235 lb 14.314 oz Body Mass Index (BMI) 35.9 Intake and Output for Last 24 Hours 01/04/20 01/05/20 01/06/20 23:59 23:59 23:59 Intake Total 26.50 / 30.25 1108.75 / 1108.75 Output Total 200 / 200 475 / 475 Balance -173.50 / -169.75 633.75 / 633.75 General: Awake, Alert, Oriented x 3 HEENT: PERRL, EOMI, Sclera Non Icteric Neck: Supple, Good ROM, No Lymph Node Enlargement Lungs: Diminished Dario Bases Cardiovascular: Irregular Rhythm, Normal S1, Normal S2, No Murmurs, No Rubs, No Gallops Vascular: No Carotid Bruits, Normal Femoral Pulses, Normal Radial Pulses, Normal Dorsalis Pedal Pulse, Normal Posterior Tibial Pulses Abdomen: Bowel Sounds Present, Soft, Non Tender, No HSM, No Organomegaly Extremities: No Cyanosis, No Clubbing, No edema Musculoskeletal: No Erythema Skin: No Rashes Lymphatic: No Lymph Node Enlargement Neurological: No Focal Motor or Sensory Deficit Psych/Mental Status: Appropriate 01/05/20 15:36: WBC 9.8, RBC 4.00 L, Hgb 13.4, Hct 40.4, MCV 101.0 H, MCH 33.5 H , MCHC 33.2, Plt Count 178, MPV 13.6 H, Immature Gran % (Auto) 0.600, Neut % (Auto) 71.8 H, Lymph % (Auto) 14.0 L, [place] % (Auto) 10.9 H, Eos % (Auto) 2.5, Baso % (Auto) 0.2, Absolute Neuts (auto) 7.0, Nucleated RBC % 0 01/05/20 15:36: PT 14.1, INR 1.1, APTT 37.5 H 01/05/20 15:36: Sodium 138, Potassium 3.8, Chloride 106, Carbon Dioxide 26.0, Anion Gap 6, BUN 21 H, Creatinine 0.75, Est GFR (MDRD) Af Amer 130, Est GFR (MDRD) Non-Af 108, BUN/Creatinine Ratio 28.0 H, Glucose 116 H, Calcium 8.9, Total Bilirubin 0.70, Troponin I < 0.015 01/05/20 20:40: Magnesium 2.1 01/05/20 20:40: Troponin I < 0.015 01/05/20 23:43: Troponin I < 0.015 01/06/20 02:40: WBC 10.4, RBC 3.60 L, Hgb 12.1 L, Hct 36.5 L, MCV 101.4 H, MCH 33.6 H, MCHC 33.2, Plt Count 165, MPV 12.6 H, Immature Gran % (Auto) 0.500, Neut % (Auto) 72.9 H, Lymph % (Auto) 13.2 L, [place] % (Auto) 10.1 H, Eos % (Auto) 3.0, Baso % (Auto) 0.3, Absolute Neuts (auto) 7.6, Nucleated RBC % 0 01/06/20 02:40: Sodium 140, Potassium 3.7, Chloride 109 H, Carbon Dioxide 25.0, Anion Gap 6, BUN 16, Creatinine 0.63 L, Est GFR (MDRD) Af Amer 160, Est GFR (MDRD) Non-Af 132, BUN/Creatinine Ratio 25.4 H, Glucose 96, Calcium 8.5 01/06/20 02:40: Troponin I < 0.015 Rhythm: Atrial fibrillation with left bundle branch block aberrancy EKG: Atrial fibrillation with a left bundle branch block ECHO: Pending Stress Test: Cardiac Cath: PCI: CT Surgery: Holter monitor: EPS: PPM: CXR: Chest CT Scan: Assessment/Plan 1. Atrial fibrillation with a rapid ventricular response rate. * Patient present with the above unbeknownst to him. The exact duration is unclear as well. My recommendation is to try and slow down his heart rate with intravenous Cardizem drip and the addition of oral beta-sheyla. He will be anticoagulated initially with Lovenox and switched to a factor Xa inhibitor. * Would recommend an echocardiogram to assess his left ventricular function and further recommendations will depend on the above. * His last EKG was noted to be in 2012 and at that time he did not have a left bundle branch block present. * His alcohol use will need to be curtailed as this may be contributing to the above condition. * 2. Hypertension * His blood pressure appears to be under fair control and will need adjustments. He will continue the losartan and hydrochlorothiazide and will probably need the addition of a higher dose of beta-sheyla. * Will obtain an echocardiogram to assess his low ventricular function. * 3. Shortness of breath * I would recommend that we obtain an natruretic peptide level to exclude congestive heart failure secondary to cardiac arrhythmia as a potential etiology. * If the above is noted to be elevated I would recommend intravenous Lasix. * * Thank you for allowing me to participate in the care of your patient. Please don't hesitate to call if any issues arise.
[2020-01-06] MEDS: Folic Acid 1 MG Tablet PO ×2 (08:04→17:08)
[2020-01-06] MEDS: Thiamine Hydrochloride 100 MG Tablet PO (08:04)
[2020-01-06] MEDS: Allopurinol 300 MG Tablet PO (08:04)
[2020-01-06 08:25] LABS: BNP,B-Type NATRIURETIC PEPTIDE 170.2 pg/mL (0-100)
--- NOTE | 2020-01-06 08:48 | CT_ITS ---
STUDY: CTA CHEST REASON FOR EXAM: Male, 74 years old. SOB,COUGH RADIATION DOSAGE (If Supplied By Facility): CTDIvol = ( 13.77 ) mGy, DLP = ( 576.44 ) mGycm TECHNIQUE: The examination was performed with the intravenous administration of 100 CC ISOVUE 370. Post-processing of the angiographic images was performed, with multiplanar reformation and 3D reconstruction. Individualized dose optimization techniques were used for this CT. COMPARISON: None. FINDINGS: Normal enhancement of the main pulmonary artery and right and left pulmonary arteries. Normal enhancement of the bilateral peripheral pulmonary arteries. There is no demonstrated pulmonary embolism. There is prominence of the main pulmonary arteries and peripheral pulmonary arteries, consistent with congestive heart failure (CHF). Normal thoracic aorta and visualized great vessels. There is no demonstrated aortic dissection. Normal heart and pericardium. Normal mediastinum. Normal hilar regions. Normal visualized trachea and bronchi. There is compressive atelectasis in the lung bases. A calcified granuloma is seen in the anterior segment of the right lung upper lobe. Moderate size bilateral pleural effusions are noted. Normal chest wall structures. Normal osseous structures. Normal visualized upper abdomen. There is subcutaneous rounded opacity in the right submandibular region measures 3 cm in diameter most likely represent an epidermoid cyst. CT/CTA Chest W/WO Contrast IMPRESSION: Congestive heart failure. No demonstrated pulmonary embolism or arterial dissection. There is subcutaneous rounded opacity in the right submandibular region measures 3 cm in diameter most likely represent an epidermoid cyst. Electronically Signed: Adriana Grande, at 11:35 EDT Tel , Service support ,
[2020-01-06] MEDS: Losartan Potassium 50 MG Tablet PO (10:21)
[2020-01-06] MEDS: hydroCHLOROthiazide 12.5mg 12.5 MG PO (10:21)
[2020-01-06] MEDS: Meloxicam 15 MG Tablet PO (10:21)
[2020-01-06] MEDS: Enoxaparin 100 MG/ML Syringe SC (10:21)
[2020-01-06] MEDS: Metoprolol Tartrate 50 MG Tablet PO ×2 (10:24→21:40)
--- NOTE | 2020-01-06 11:23 | PCM.PN.HOSP ---
<Sarmad Vasques - Last Filed: 01/06/20 11:23> Patient Problems: Active and Suspected Problems (Last Reviewed 09/21/18 @ 14:04 by Deanna Velazco) Atrial flutter with rapid ventricular response (Acute) Reason for Visit: Afib RVR Subjective: Pt denies afib hx, denies hx lung dz. former smoker has not smoked in about 25 years. No cp. SOB ongoing. Never has needed O2. No LE edema. Vitals/I&O's: Vital Signs Temp Pulse Resp BP Pulse Ox 99.1 F 108 H 23 H 113/46 L 91 01/06/20 10:00 01/06/20 10:29 01/06/20 10:29 01/06/20 10:29 01/06/20 10:29 Oxygen Flow Rate (L/min) 6 Oxygen Delivery Method Nasal Cannula Weight: 235 lb 14.314 oz Body Mass Index (BMI) 35.9 Intake and Output for Last 24 Hours 01/04/20 01/05/20 01/06/20 23:59 23:59 23:59 Intake Total 26.50 / 30.25 1161.00 / 1161.00 Output Total 200 / 200 475 / 475 Balance -173.50 / -169.75 686.00 / 686.00 General: Alert, Oriented x3, Cooperative HEENT: Atraumatic, PERRLA, EOMI, Normocephalic Neck: Supple, No JVD, Negative Carotid Bruits Lungs: Clear to auscultation, Normal air movement Cardiovascular: No murmurs, Irregular Rate, Tachycardic Abdomen: Bowel Sounds Present, Soft, Non Tender Extremities: No edema, Capillary Refill Less than 3 Seconds Skin: No rashes, No breakdown Musculoskeletal: No Tenderness to Palpation of Joints or Extremities Neurological: Cranial nerves II-XII grossly intact Psych/Mental Status: Normal Affect, Appropriate, Alert and oriented to time, place, person, mood and affect Microbiology Past 72 Hours 01/05/20 18:20 Mucosa - Nasopharyngeal Respiratory Panel (PCR) - Final Laboratory Results 01/05/20 15:36: WBC 9.8, RBC 4.00 L, Hgb 13.4, Hct 40.4, MCV 101.0 H, MCH 33.5 H, MCHC 33.2, RDW Std Deviation 50.4 H, RDW Coeff of Betsy 13.8, Plt Count 178, MPV 13.6 H, Immature Gran % (Auto) 0.600, Neut % (Auto) 71.8 H, Lymph % (Auto) 14.0 L, [place] % (Auto) 10.9 H, Eos % (Auto) 2.5, Baso % (Auto) 0.2, Absolute Neuts (auto) 7.0, Absolute Lymphs (auto) 1.37, Nucleated RBC % 0 01/05/20 15:36: PT 14.1, INR 1.1, APTT 37.5 H 01/05/20 15:36: Sodium 138, Potassium 3.8, Chloride 106, Carbon Dioxide 26.0, Anion Gap 6, BUN 21 H, Creatinine 0.75, Estim Creat Clear Calc 61.75, Est GFR (MDRD) Af Amer 130, Est GFR (MDRD) Non-Af 108, BUN/Creatinine Ratio 28.0 H, Glucose 116 H, Calcium 8.9, Total Bilirubin 0.70, AST 17, ALT 42, Alkaline Phosphatase 96, Troponin I < 0.015, Total Protein 7.3, Albumin 3.7, Globulin 3.6, Albumin/Globulin Ratio 1.0 01/05/20 18:20: COVID-19 (PADDY) Negative 01/05/20 20:40: Magnesium 2.1, TSH 0.94 01/05/20 20:40: Troponin I < 0.015 01/05/20 23:43: Troponin I < 0.015 01/06/20 02:40: WBC 10.4, RBC 3.60 L, Hgb 12.1 L, Hct 36.5 L, MCV 101.4 H, MCH 33.6 H, MCHC 33.2, RDW Std Deviation 51.4 H, RDW Coeff of Betsy 13.8, Plt Count 165, MPV 12.6 H, Immature Gran % (Auto) 0.500, Neut % (Auto) 72.9 H, Lymph % (Auto) 13.2 L, [place] % (Auto) 10.1 H, Eos % (Auto) 3.0, Baso % (Auto) 0.3, Absolute Neuts (auto) 7.6, Absolute Lymphs (auto) 1.37, Nucleated RBC % 0 01/06/20 02:40: Sodium 140, Potassium 3.7, Chloride 109 H, Carbon Dioxide 25.0, Anion Gap 6, BUN 16, Creatinine 0.63 L, Estim Creat Clear Calc 61.75, Est GFR (MDRD) Af Amer 160, Est GFR (MDRD) Non-Af 132, BUN/Creatinine Ratio 25.4 H, Glucose 96, Calcium 8.5 01/06/20 02:40: Troponin I < 0.015 01/06/20 02:40: B-Natriuretic Peptide 170.2 H Current Medications Acetaminophen (Tylenol) 650 mg PO Q6H PRN PRN PRN Reason: Pain Score 1-10/Temp > 100.7 F [facility] Last Admin: 01/06/20 08:04 Dose: 300 mg Documented by: Cholecalciferol (Vitamin D (25mcg)) 5,000 unit PO DAILY [facility] Last Admin: 01/06/20 10:21 Dose: 5,000 unit Documented by: Enoxaparin Sodium (Lovenox) 100 mg SC BID [facility] Last Admin: 01/06/20 10:21 Dose: 100 mg Documented by: Folic Acid (Folic Acid) [facility] Last Admin: 01/06/20 08:04 Dose: 1 mg Documented by: Guaifenesin (Robitussin) 10 ml PO Q6H PRN PRN PRN Reason: Cough, congestion. Hydrochlorothiazide () 12.5 mg PO DAILY [facility] Last Admin: 01/06/20 10:21 Dose: 12.5 mg Documented by: Diltiazem HCl 125 mg/ Dextrose 125 mls @ 5 mls/hr IV .Q25H [facility]; Protocol Last Titration: 01/06/20 10:29 Dose: 15 mg/hr, 15 mls/hr Documented by: Sodium Chloride () 250 mls @ 15 mls/hr IV .[id number] PRN PRN Reason: Saline Flush Sodium Chloride () 250 mls @ 15 mls/hr IV .[id number] PRN PRN Reason: Additional IVPB Infusion Losartan Potassium (Cozaar) 50 mg PO DAILY [facility] Last Admin: 01/06/20 10:21 Dose: 50 mg Documented by: Meloxicam (Mobic) 15 mg PO DAILY [facility] Last Admin: 01/06/20 10:21 Dose: 15 mg Documented by: Metoprolol Tartrate (Lopressor (Beta Odilia)) 50 mg PO BID [facility] Last Admin: 01/06/20 10:24 Dose: 50 mg Documented by: Ondansetron HCl (Zofran) 4 mg IV Q8H PRN PRN PRN Reason: NAUSEA/VOMITING Pravastatin Sodium (Pravachol) 40 mg PO DAILY@2200 [facility] Last Admin: 01/05/20 23:18 Dose: 40 mg Documented by: Senna/Docusate Sodium (Senokot-S, Hayley-Colace) 2 tablet PO BID PRN PRN PRN Reason: Constipation Sodium Chloride () 10 - 40 ml IV UD PRN PRN Reason: SALINE FLUSH Last Admin: 01/05/20 21:35 Dose: 10 ml Documented by: Tamsulosin HCl (Flomax) 0.4 mg PO DAILY [facility] Last Admin: 01/05/20 23:18 Dose: 0.4 mg Documented by: Thiamine HCl (Vitamin B1) [facility] Last Admin: 01/06/20 08:04 Dose: 100 mg Documented by: STROKE Vital Signs/Narrative: Vital Signs Temp Pulse Resp BP Pulse Ox 01/06/20 10:29 108 H 23 H 113/46 L 91 01/06/20 10:24 138 H 113/46 L 01/06/20 10:00 99.1 F 138 H 21 H 113/46 L 92 01/06/20 09:00 110 H 26 H 98/74 92 01/06/20 08:00 98.2 F 88 25 H 128/66 H 94 01/06/20 07:40 94 Medical Necessity - Tobacco Use Smoking Status: Former smoker Assessment/Plan All Active Problems (Last Reviewed 09/21/18 @ 14:04 by Deanna Velazco) Atrial flutter with rapid ventricular response (Acute) 1. Afib rvr - denies prior hx. still tachy this AM. Cardiology following. Echo pending. CTA chest pending. Trop neg x 3, tsh normal. covid neg. Mag nl. 2. Acute hypoxic resp failure - as per #1. 3. HTN - stable 4. BPH - flomax 5. HLD - statin DVT ppx: lovenox bid This patient was seen by Sarmad Vasques PA-C under the supervision of Dr. Terry. <Mike Terry F - Last Filed: 01/06/20 15:31> Vitals/I&O's: Vital Signs Temp Pulse Resp BP Pulse Ox 98.3 F 65 18 108/62 92 01/06/20 14:00 01/06/20 14:00 01/06/20 14:00 01/06/20 14:00 01/06/20 14:00 Oxygen Flow Rate (L/min) 6 Oxygen Delivery Method Nasal Cannula Weight: 235 lb 14.314 oz Body Mass Index (BMI) 35.9 Intake and Output for Last 24 Hours 01/04/20 01/05/20 01/06/20 23:59 23:59 23:59 Intake Total 26.50 / 30.25 1687.00 / 1687.00 Output Total 200 / 200 675 / 675 Balance -173.50 / -169.75 1012.00 / 1012.00 Microbiology Past 72 Hours 01/05/20 18:20 Mucosa - Nasopharyngeal Respiratory Panel (PCR) - Final Laboratory Results 01/05/20 15:36: WBC 9.8, RBC 4.00 L, Hgb 13.4, Hct 40.4, MCV 101.0 H, MCH 33.5 H, MCHC 33.2, RDW Std Deviation 50.4 H, RDW Coeff of Betsy 13.8, Plt Count 178, MPV 13.6 H, Immature Gran % (Auto) 0.600, Neut % (Auto) 71.8 H, Lymph % (Auto) 14.0 L, [place] % (Auto) 10.9 H, Eos % (Auto) 2.5, Baso % (Auto) 0.2, Absolute Neuts (auto) 7.0, Absolute Lymphs (auto) 1.37, Nucleated RBC % 0 01/05/20 15:36: PT 14.1, INR 1.1, APTT 37.5 H 01/05/20 15:36: Sodium 138, Potassium 3.8, Chloride 106, Carbon Dioxide 26.0, Anion Gap 6, BUN 21 H, Creatinine 0.75, Estim Creat Clear Calc 61.75, Est GFR (MDRD) Af Amer 130, Est GFR (MDRD) Non-Af 108, BUN/Creatinine Ratio 28.0 H, Glucose 116 H, Calcium 8.9, Total Bilirubin 0.70, AST 17, ALT 42, Alkaline Phosphatase 96, Troponin I < 0.015, Total Protein 7.3, Albumin 3.7, Globulin 3.6, Albumin/Globulin Ratio 1.0 01/05/20 18:20: COVID-19 (PADDY) Negative 01/05/20 20:40: Magnesium 2.1, TSH 0.94 01/05/20 20:40: Troponin I < 0.015 01/05/20 23:43: Troponin I < 0.015 01/06/20 02:40: WBC 10.4, RBC 3.60 L, Hgb 12.1 L, Hct 36.5 L, MCV 101.4 H, MCH 33.6 H, MCHC 33.2, RDW Std Deviation 51.4 H, RDW Coeff of Betsy 13.8, Plt Count 165, MPV 12.6 H, Immature Gran % (Auto) 0.500, Neut % (Auto) 72.9 H, Lymph % (Auto) 13.2 L, [place] % (Auto) 10.1 H, Eos % (Auto) 3.0, Baso % (Auto) 0.3, Absolute Neuts (auto) 7.6, Absolute Lymphs (auto) 1.37, Nucleated RBC % 0 01/06/20 02:40: Sodium 140, Potassium 3.7, Chloride 109 H, Carbon Dioxide 25.0, Anion Gap 6, BUN 16, Creatinine 0.63 L, Estim Creat Clear Calc 61.75, Est GFR (MDRD) Af Amer 160, Est GFR (MDRD) Non-Af 132, BUN/Creatinine Ratio 25.4 H, Glucose 96, Calcium 8.5 01/06/20 02:40: Troponin I < 0.015 01/06/20 02:40: B-Natriuretic Peptide 170.2 H Current Medications Acetaminophen (Tylenol) 650 mg PO Q6H PRN PRN PRN Reason: Pain Score 1-10/Temp > 100.7 F Allopurinol ([facility]yloprim) [facility] Last Admin: 01/06/20 08:04 Dose: 300 mg Documented by: Cholecalciferol (Vitamin D (25mcg)) 5,000 unit PO DAILY [facility] Last Admin: 01/06/20 10:21 Dose: 5,000 unit Documented by: Enoxaparin Sodium (Lovenox) 100 mg SC BID [facility] Last Admin: 01/06/20 10:21 Dose: 100 mg Documented by: Folic Acid (Folic Acid) 1 mg PO BIDCM [facility] Last Admin: 01/06/20 08:04 Dose: 1 mg Documented by: Furosemide (Lasix) 40 mg IV BID@1000,1800 [facility] Last Admin: 01/06/20 14:30 Dose: 40 mg Documented by: Guaifenesin (Robitussin) 10 ml PO Q6H PRN PRN PRN Reason: Cough, congestion. Diltiazem HCl 125 mg/ Dextrose 125 mls @ 5 mls/hr IV .Q25H [facility]; Protocol Last Admin: 01/06/20 13:33 Dose: 15 mg/hr, 15 mls/hr Documented by: Sodium Chloride () 250 mls @ 15 mls/hr IV .[id number] PRN PRN Reason: Saline Flush Sodium Chloride () 250 mls @ 15 mls/hr IV .[id number] PRN PRN Reason: Additional IVPB Infusion Losartan Potassium (Cozaar) 50 mg PO DAILY [facility] Last Admin: 01/06/20 10:21 Dose: 50 mg Documented by: Meloxicam (Mobic) 15 mg PO DAILY [facility] Last Admin: 01/06/20 10:21 Dose: 15 mg Documented by: Metoprolol Tartrate (Lopressor (Beta Odilia)) 50 mg PO BID [facility] Last Admin: 01/06/20 10:24 Dose: 50 mg Documented by: Nicotine (Nicoderm Cq (Pbkc)) 21 mg TRANSDERM. DAILY [facility] Last Admin: 01/06/20 13:10 Dose: 21 mg Documented by: Ondansetron HCl (Zofran) 4 mg IV Q8H PRN PRN PRN Reason: NAUSEA/VOMITING Last Admin: 01/06/20 12:48 Dose: 4 mg Documented by: Pravastatin Sodium (Pravachol) 40 mg PO DAILY@2200 [facility] Last Admin: 01/05/20 23:18 Dose: 40 mg Documented by: Senna/Docusate Sodium (Senokot-S, Hayley-Colace) 2 tablet PO BID PRN PRN PRN Reason: Constipation Sodium Chloride () 10 - 40 ml IV UD PRN PRN Reason: SALINE FLUSH Last Admin: 01/06/20 14:30 Dose: 10 ml Documented by: Tamsulosin HCl (Flomax) 0.4 mg PO DAILY [facility] Last Admin: 01/06/20 12:21 Dose: 0.4 mg Documented by: Thiamine HCl (Vitamin B1) 100 mg PO DAILYCM [facility] Last Admin: 01/06/20 08:04 Dose: 100 mg Documented by: STROKE Vital Signs/Narrative: Vital Signs Temp Pulse Resp BP Pulse Ox 01/06/20 14:00 98.3 F 65 18 108/62 92 01/06/20 12:00 97.7 F L 64 21 H 104/72 92 Addendum: Dr. Terry I personally examined the patient and reviewed the chart. I agree with the above. 74-year-old male who presented to his primary care's office with not feeling well, was found to have a tachyarrhythmia. His heart rate was over 130 and the EKG that was done in the office appeared to be a wide-complex tachycardia. Cardiology was consulted and felt that he had A. fib/flutter with a left bundle branch block. Because of his sore throat and illness he was tested for COVID which was negative and he was started on a Cardizem drip. It appears that the Cardizem drip has worked as his heart rate is now in the 60s. An echo is pending as a EKG in 2012 did not demonstrate a left bundle branch block. The echo demonstrates an EF of 40% with hypokinesis of the apex anterior wall and septum. May need further cardiac testing at this point. A BNP was also obtained which was slightly elevated to 170, and given his shortness of breath and his new onset requirement for her oxygen, he was started on IV Lasix twice daily. Inpatient E&M: 39042 Subs Hosp L2
--- NOTE | 2020-01-06 11:35 | CASEMGMT ---
LYDIA KRAMER assessment: Face to Face with patient for initial transition planning/care coordination assessment. LYDIA KRAMER introduced self and role at [facility], pt voices understanding and consents to assessment at this time. Pt is sitting up in bed in no distress at this time but is on 6 liters nc at this time. Pt is A/Ox4 at this time and answers all questions appropriately at this time. Pt's is at bedside during assessment. Care providers, pharmacy, and demographics verified at this time. Presentation: Seen at [facility]'s office for SOB, EKG showed SVT Admitting dx: New onset Aflutter w/ RVR PCP: [facility] Specialists: Nahomy, uro; [facility] Preferred Pharmacy: [facility] Insurance: [facility] A/B, [place] Prescription Benefit: Yes Living Will/HPOA: Pt states has LW/HPOA and is aware that they are on file at [facility] at this time. Pt states that , Kinjal Cordova, is HPOA. LNOK: Kinjal Cordova, /HPOA; Jason Cordova, son Living Arrangements: Pt states lives with in 1 story home and states no concerns at home at this time. Pt states is independent with ADL's. Transportation: Pt states drives self and states no transportation concerns at this time. DME/HHC: Pt states has the following DME: cane, walker, crutches, grab bars, and shower chair. Pt states no need for any further DME at this time. Pt states has hx HHC in the past but no hx of SNF in the past. Pt states no concerns with going home at time of discharge. 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 Pt states does not smoke cigarettes but does drink 'a couple beers' daily. Pt states no further concerns/needs at this time. CM to follow for home oxygen testing and any further discharge planning/needs. Advised pt to ask for CM if any further questions/concerns/needs arise, voices understanding. Pt Goal: Home Plan: [place] LYDIA KRAMER
[2020-01-06] MEDS: Tamsulosin HCl 0.4 MG Capsule PO (12:21)
[2020-01-06] MEDS: Ondansetron 4 MG/2 ML Vial IV (12:48)
[2020-01-06] MEDS: 0.9% Saline Lock 10 ML Syringe IV ×3 (12:48→17:07)
[2020-01-06] MEDS: Furosemide 40 MG/4 ML Vial IV ×2 (14:30→17:07)
[2020-01-06] MEDS: APIXABAN 5 MG TABLET PO (21:40)
[2020-01-06] MEDS: Pravastatin 40 MG Tablet PO (21:40)
[2020-01-06] MEDS: Polyethylene Glycol 3350 17 GM PACKET PO (22:40)
[2020-01-07] VITALS (22 sets, daily range): BP systolic 93–133; BP diastolic 60–95; PULSE 62–105; RESP 20–26; TEMP 36.5–36.9; O2SAT 90–97
[2020-01-07] MEDS: 0.9% Saline Lock 10 ML Syringe IV ×2 (05:58→16:29)
[2020-01-07 06:34] LABS: Absolute Lymphocyte Count 1.33 X10^3/uL (0.83-4.51); Absolute Neutrophil Count 7.3 X10^3/uL (2.0-7.7); Basophil# 0.03 X10^3/uL; Basophil% 0.3 % (0-1); Eosinophil# 0.21 X10^3/uL; Eosinophils% 2.1 % (0-5); Hematocrit 37.3 % (40-54); Lymphocyte # 1.33 X10^3/ul (4.0); Lymphocyte % 13.2 % (19-41); Mean Corp Hgb Conc 32.2 g/dL (32-36); Mean Corpuscular Hgb 32.7 pg (27.0-32.0); Mean Corpuscular Volume 101.6 fL (80-94); Mean Platelet Vol. 12.7 fl (6.2-12.0); Monocyte# 1.16 X10^3/uL; Monocyte% 11.5 % (0-10); NRBC Flagged by Analyzer 0 % (0-5); Neutrophil % 72.3 % (47-70); Platelet Count 180 K/mm3 (150-450); RBC Distribution Width CV 14.1 % (11.6-14.6); Red Blood Count 3.67 M/mm3 (4.6-6.2); White Blood Count 10.1 K/mm3 (4.4-11.0)
[2020-01-07 06:52] LABS: Anion Gap 7 (5-15); BUN 19 mg/dL (7-18); BUN/Creat Ratio 24.8 RATIO (10-20); Calcium,Total 8.4 mg/dL (8.5-10.1); Chloride 102 mmol/L (98-107); Creatinine, Serum 0.77 mg/dL (0.70-1.30); EST Glomerular Filtration Rate 105 mL/min (>60); Est Glom Filt Rate - Afr Amer 127 mL/min (>60); Estimated Creatinine Clearance 61.75 ml/min; Glucose 119 mg/dL (74-106); Potassium 3.2 mmol/L (3.5-5.1); Sodium Level 135 mmol/L (136-145)
[2020-01-07] MEDS: Folic Acid 1 MG Tablet PO ×2 (07:46→16:28)
[2020-01-07] MEDS: Allopurinol 300 MG Tablet PO (07:46)
[2020-01-07] MEDS: Thiamine Hydrochloride 100 MG Tablet PO (07:46)
--- NOTE | 2020-01-07 07:47 | PN.CARD_ITS ---
Subjectve: Patient seen and evaluated. Appears to be doing better this morning. Objective: Vital Signs Temp Pulse Resp BP Pulse Ox 98.3 F 66 21 H 112/71 95 01/07/20 07:00 01/07/20 07:00 01/07/20 07:00 01/07/20 07:00 01/07/20 07:00 Oxygen Flow Rate (L/min) 6 Oxygen Delivery Method Nasal Cannula Weight: 235 lb 14.314 oz Body Mass Index (BMI) 35.9 Intake and Output for Last 24 Hours 01/05/20 01/06/20 01/07/20 23:59 23:59 23:59 Intake Total 26.50 / 30.25 2867.00 / 2882.00 157.00 / 157.00 Output Total 200 / 200 2075 / 2075 225 / 225 Balance -173.50 / -169.75 792.00 / 807.00 -68.00 / -68.00 General: Awake, Alert, Oriented x 3 HEENT: PERRL, EOMI, Sclera Non Icteric Neck: Supple, Good ROM, No Lymph Node Enlargement Lungs: Clear to auscultation Cardiovascular: Irregular Rhythm, Normal S1, Normal S2, No Murmurs, No Rubs, No Gallops Vascular: No Carotid Bruits, Normal Femoral Pulses, Normal Radial Pulses, Normal Dorsalis Pedal Pulse, Normal Posterior Tibial Pulses Abdomen: Bowel Sounds Present, Soft, Non Tender, No HSM, No Organomegaly Extremities: No Cyanosis, No Clubbing, No edema Neurological: No Focal Motor or Sensory Deficit 01/06/20 02:40: B-Natriuretic Peptide 170.2 H 01/07/20 06:15: WBC 10.1, RBC 3.67 L, Hgb 12.0 L, Hct 37.3 L, MCV 101.6 H, MCH 32.7 H, MCHC 32.2, Plt Count 180, MPV 12.7 H, Immature Gran % (Auto) 0.600, Neut % (Auto) 72.3 H, Lymph % (Auto) 13.2 L, [place] % (Auto) 11.5 H, Eos % (Auto) 2.1, Baso % (Auto) 0.3, Absolute Neuts (auto) 7.3, Nucleated RBC % 0 01/07/20 06:15: Sodium 135 L, Potassium 3.2 L, Chloride 102, Carbon Dioxide 26.0, Anion Gap 7, BUN 19 H, Creatinine 0.77, Est GFR (MDRD) Af Amer 127, Est GFR (MDRD) Non-Af 105, BUN/Creatinine Ratio 24.8 H, Glucose 119 H, Calcium 8.4 L Rhythm: EKG: ECHO: Stress Test: Cardiac Cath: PCI: CT Surgery: Holter monitor: EPS: PPM: CXR: Chest CT Scan: Medical Necessity - Tobacco Use Smoking Status: Former smoker Assessment/Plan 1. Atrial fibrillation/flutter with a rapid ventricular response rate. * Patient present with the above unbeknownst to him. The exact duration is unclear as well. * His rate appears to be better controlled at this time * We will switch to oral beta-sheyla * Wean off intravenous diltiazem 2. Hypertension * His blood pressure appears to be under fair control and will need adjustments. He will continue the losartan. * Discontinue hydrochlorothiazide * Echocardiogram demonstrated mild left ventricular systolic dysfunction global with 2+ mitral regurgitation. * 3. Shortness of breath * He appears to have mild systolic congestive heart failure * Will continue with the losartan and Lasix * * Thank you for allowing me to participate in the care of your patient. Please don't hesitate to call if any issues arise.
[2020-01-07] MEDS: Metoprolol Tartrate 100 MG Tablet PO ×2 (08:41→21:45)
[2020-01-07] MEDS: Furosemide 40 MG Tablet PO (09:01)
[2020-01-07] MEDS: Meloxicam 15 MG Tablet PO (09:01)
[2020-01-07] MEDS: APIXABAN 5 MG TABLET PO ×2 (09:01→21:46)
[2020-01-07] MEDS: Tamsulosin HCl 0.4 MG Capsule PO (09:01)
[2020-01-07] MEDS: Losartan Potassium 50 MG Tablet PO (09:01)
--- NOTE | 2020-01-07 10:44 | PN_ITS ---
<Sarmad Vasques - Last Filed: 01/07/20 10:44> Patient Problems: Active and Suspected Problems (Last Reviewed 09/21/18 @ 14:04 by Deanna Velazco) Atrial flutter with rapid ventricular response (Acute) Reason for Visit: hypoxia Subjective: No SOB at rest, SOB with exertion tho. Pt unable to be weaned off o2 - still requiring 5lpm to maintain adequate sats - no home o2 use in the past. No CP/pressure/tightness. No LH or dizziness. No nausea or vomiting. Vitals/I&O's: Vital Signs Temp Pulse Resp BP Pulse Ox 98.4 F 89 20 H 133/65 H 92 01/07/20 09:00 01/07/20 09:00 01/07/20 09:00 01/07/20 09:00 01/07/20 09:00 Oxygen Flow Rate (L/min) 2 Oxygen Delivery Method Nasal Cannula Weight: 235 lb 14.314 oz Body Mass Index (BMI) 35.9 Intake and Output for Last 24 Hours 01/05/20 01/06/20 01/07/20 23:59 23:59 23:59 Intake Total 26.50 / 30.25 2867.00 / 2882.00 170.00 / 170.00 Output Total 200 / 200 2075 / 2075 225 / 225 Balance -173.50 / -169.75 792.00 / 807.00 -55.00 / -55.00 General: Alert, Oriented x3, Cooperative HEENT: Atraumatic, PERRLA, EOMI, Normocephalic Neck: Supple, No JVD, Negative Carotid Bruits Lungs: Diminished, Rales - BL bases Cardiovascular: Regular rate, No murmurs Abdomen: Bowel Sounds Present, Soft, Non Tender, Obese Extremities: No edema, Capillary Refill Less than 3 Seconds Skin: No rashes, No breakdown Musculoskeletal: No Tenderness to Palpation of Joints or Extremities Neurological: Cranial nerves II-XII grossly intact Psych/Mental Status: Normal Affect, Appropriate, Alert and oriented to time, place, person, mood and affect Microbiology Past 72 Hours 01/05/20 18:20 Mucosa - Nasopharyngeal Respiratory Panel (PCR) - Final Laboratory Results 01/07/20 06:15: WBC 10.1, RBC 3.67 L, Hgb 12.0 L, Hct 37.3 L, MCV 101.6 H, MCH 32.7 H, MCHC 32.2, RDW Std Deviation 52.0 H, RDW Coeff of Betsy 14.1, Plt Count 180, MPV 12.7 H, Immature Gran % (Auto) 0.600, Neut % (Auto) 72.3 H, Lymph % (Auto) 13.2 L, [place] % (Auto) 11.5 H, Eos % (Auto) 2.1, Baso % (Auto) 0.3, Absolute Neuts (auto) 7.3, Absolute Lymphs (auto) 1.33, Nucleated RBC % 0 01/07/20 06:15: Sodium 135 L, Potassium 3.2 L, Chloride 102, Carbon Dioxide 26.0, Anion Gap 7, BUN 19 H, Creatinine 0.77, Estim Creat Clear Calc 61.75, Est GFR (MDRD) Af Amer 127, Est GFR (MDRD) Non-Af 105, BUN/Creatinine Ratio 24.8 H, Glucose 119 H, Calcium 8.4 L Current Medications Acetaminophen (Tylenol) 650 mg PO Q6H PRN PRN PRN Reason: Pain Score 1-10/Temp > 100.7 F [facility] Last Admin: 01/07/20 07:46 Dose: 300 mg Documented by: Apixaban (Eliquis) 5 mg PO BID [facility] Last Admin: 01/07/20 09:01 Dose: 5 mg Documented by: Cholecalciferol (Vitamin D (25mcg)) 5,000 unit PO DAILY [facility] Last Admin: 01/07/20 09:01 Dose: 5,000 unit Documented by: [facility]) [facility] Last Admin: 01/07/20 07:46 Dose: 1 mg Documented by: Furosemide (Lasix) 40 mg PO DAILY [facility] Last Admin: 01/07/20 09:01 Dose: 40 mg Documented by: Guaifenesin (Robitussin) 10 ml PO Q6H PRN PRN PRN Reason: Cough, congestion. Sodium Chloride () 250 mls @ 15 mls/hr IV .[id number] PRN PRN Reason: Saline Flush Sodium Chloride () 250 mls @ 15 mls/hr IV .[id number] PRN PRN Reason: Additional IVPB Infusion Losartan Potassium (Cozaar) 50 mg PO DAILY [facility] Last Admin: 01/07/20 09:01 Dose: 50 mg Documented by: Meloxicam (Mobic) 15 mg PO DAILY [facility] Last Admin: 01/07/20 09:01 Dose: 15 mg Documented by: Metoprolol Tartrate (Lopressor (Beta Odilia)) 100 mg PO BID [facility] Last Admin: 01/07/20 08:41 Dose: 100 mg Documented by: Nicotine (Nicoderm Cq (Pbkc)) 21 mg TRANSDERM. DAILY [facility] Last Admin: 01/07/20 09:03 Dose: 21 mg Documented by: Ondansetron HCl (Zofran) 4 mg IV Q8H PRN PRN PRN Reason: NAUSEA/VOMITING Last Admin: 01/06/20 12:48 Dose: 4 mg Documented by: Polyethylene Glycol (Miralax) 17 gm PO DAILY PRN PRN Reason: Constipation Last Admin: 01/06/20 22:40 Dose: 17 gm Documented by: Pravastatin Sodium (Pravachol) 40 mg PO DAILY@2200 [facility] Last Admin: 01/06/20 21:40 Dose: 40 mg Documented by: Senna/Docusate Sodium (Senokot-S, Hayley-Colace) 2 tablet PO BID PRN PRN PRN Reason: Constipation Sodium Chloride () 10 - 40 ml IV UD PRN PRN Reason: SALINE FLUSH Last Admin: 01/07/20 05:58 Dose: 20 ml Documented by: Tamsulosin HCl (Flomax) 0.4 mg PO DAILY [facility] Last Admin: 01/07/20 09:01 Dose: 0.4 mg Documented by: Thiamine HCl ([facility]itamin B1) [facility] Last Admin: 01/07/20 07:46 Dose: 100 mg Documented by: STROKE Vital Signs/Narrative: Vital Signs Temp Pulse Resp BP Pulse Ox 01/07/20 09:00 98.4 F 89 20 H 133/65 H 92 01/07/20 08:41 66 112/71 01/07/20 08:04 66 01/07/20 08:00 98.2 F 87 23 H 124/75 H 90 01/07/20 07:34 91 01/07/20 07:00 98.3 F 66 21 H 112/71 95 Medical Necessity - Tobacco Use Smoking Status: Former smoker Assessment/Plan All Active Problems (Last Reviewed 09/21/18 @ 14:04 by Deanna Velazco) Atrial flutter with rapid ventricular response (Acute) 1. Afib rvr - stable at rest, just sitting up in bed the rate jumped into the 120 range, but did settle quickly. Cardiology following. Continue apixaban, metoprolol. -Echocardiogram with ejection fraction 40%, stage I diastolic dysfunction, hypokinesis of the apex, anterior wall and septum. 2. Acute hypoxic resp failure 2/2 acute systolic CHF - continue lasix. still requiring up to 5lpm o2 via NC this am. baseline = 0. Wean as tolerated, continue fluid restriction, sodium restriction. Continue losartan. 3. HTN - stable 4. BPH - flomax 5. HLD - statin DVT ppx: Eliquis DC planning: wean o2 to off. This patient was seen by Sarmad Vasques PA-C under the supervision of Dr. Terry. <Mike Terry F - Last Filed: 01/07/20 17:16> Vitals/I&O's: Vital Signs Temp Pulse Resp BP Pulse Ox 97.7 F L 82 20 H 122/91 H 93 01/07/20 15:00 01/07/20 15:00 01/07/20 15:00 01/07/20 15:00 01/07/20 15:00 Oxygen Flow Rate (L/min) 2 Oxygen Delivery Method Nasal Cannula Weight: 235 lb 14.314 oz Body Mass Index (BMI) 35.9 Intake and Output for Last 24 Hours 01/05/20 01/06/20 01/07/20 23:59 23:59 23:59 Intake Total 26.50 / 30.25 2867.00 / 2882.00 290.00 / 290.00 Output Total 200 / 200 2075 / 2075 325 / 325 Balance -173.50 / -169.75 792.00 / 807.00 -35.00 / -35.00 Microbiology Past 72 Hours 01/05/20 18:20 Mucosa - Nasopharyngeal Respiratory Panel (PCR) - Final Laboratory Results 01/07/20 06:15: WBC 10.1, RBC 3.67 L, Hgb 12.0 L, Hct 37.3 L, MCV 101.6 H, MCH 32.7 H, MCHC 32.2, RDW Std Deviation 52.0 H, RDW Coeff of Betsy 14.1, Plt Count 180, MPV 12.7 H, Immature Gran % (Auto) 0.600, Neut % (Auto) 72.3 H, Lymph % (Auto) 13.2 L, [place] % (Auto) 11.5 H, Eos % (Auto) 2.1, Baso % (Auto) 0.3, Absolute Neuts (auto) 7.3, Absolute Lymphs (auto) 1.33, Nucleated RBC % 0 01/07/20 06:15: Sodium 135 L, Potassium 3.2 L, Chloride 102, Carbon Dioxide 26.0, Anion Gap 7, BUN 19 H, Creatinine 0.77, Estim Creat Clear Calc 61.75, Est GFR (MDRD) Af Amer 127, Est GFR (MDRD) Non-Af 105, BUN/Creatinine Ratio 24.8 H, Glucose 119 H, Calcium 8.4 L Current Medications Acetaminophen (Tylenol) 650 mg PO Q6H PRN PRN PRN Reason: Pain Score 1-10/Temp > 100.7 F [facility]) [facility] Last Admin: 01/07/20 07:46 Dose: 300 mg Documented by: Apixaban (Eliquis) 5 mg PO BID [facility] Last Admin: 01/07/20 09:01 Dose: 5 mg Documented by: Cholecalciferol (Vitamin D (25mcg)) 5,000 unit PO DAILY [facility] Last Admin: 01/07/20 09:01 Dose: 5,000 unit Documented by: Folic Acid ([facility] Acid) [facility] Last Admin: 01/07/20 16:28 Dose: 1 mg Documented by: Furosemide (Lasix) 40 mg PO DAILY [facility] Last Admin: 01/07/20 09:01 Dose: 40 mg Documented by: Guaifenesin (Robitussin) 10 ml PO Q6H PRN PRN PRN Reason: Cough, congestion. Sodium Chloride () 250 mls @ 15 mls/hr IV .[id number] PRN PRN Reason: Saline Flush Sodium Chloride () 250 mls @ 15 mls/hr IV .[id number] PRN PRN Reason: Additional IVPB Infusion Losartan Potassium (Cozaar) 50 mg PO DAILY [facility] Last Admin: 01/07/20 09:01 Dose: 50 mg Documented by: Metoprolol Tartrate (Lopressor (Beta Odilia)) 100 mg PO BID [facility] Last Admin: 01/07/20 08:41 Dose: 100 mg Documented by: Nicotine (Nicoderm Cq (Pbkc)) 21 mg TRANSDERM. DAILY [facility] Last Admin: 01/07/20 09:03 Dose: 21 mg Documented by: Ondansetron HCl (Zofran) 4 mg IV Q8H PRN PRN PRN Reason: NAUSEA/VOMITING Last Admin: 01/06/20 12:48 Dose: 4 mg Documented by: Polyethylene Glycol (Miralax) 17 gm PO DAILY PRN PRN Reason: Constipation Last Admin: 01/06/20 22:40 Dose: 17 gm Documented by: Pravastatin Sodium (Pravachol) 40 mg PO DAILY@2200 [facility] Last Admin: 01/06/20 21:40 Dose: 40 mg Documented by: Senna/Docusate Sodium (Senokot-S, Hayley-Colace) 2 tablet PO BID PRN PRN PRN Reason: Constipation Sodium Chloride () 10 - 40 ml IV UD PRN PRN Reason: SALINE FLUSH Last Admin: 01/07/20 16:29 Dose: 10 ml Documented by: Tamsulosin HCl (Flomax) 0.4 mg PO DAILY [facility] Last Admin: 01/07/20 09:01 Dose: 0.4 mg Documented by: Thiamine HCl (Vitamin B1) 100 mg PO DAILYCM [facility] Last Admin: 01/07/20 07:46 Dose: 100 mg Documented by: STROKE Vital Signs/Narrative: Vital Signs Temp Pulse Resp BP Pulse Ox 01/07/20 15:00 97.7 F L 82 20 H 122/91 H 93 Addendum: Dr. Terry I personally examined the patient and reviewed the chart. I agree with the above. 74-year-old male who presented to his primary care's office with not feeling well, was found to have a tachyarrhythmia. His heart rate was over 130 and the EKG that was done in the office appeared to be a wide-complex tachycardia. Cardiology was consulted and felt that he had A. fib/flutter with a left bundle branch block. Because of his sore throat and illness he was tested for COVID which was negative and he was started on a Cardizem drip. It appears that the Cardizem drip has worked as his heart rate is now in the 60s. An echo is pending as a EKG in 2012 did not demonstrate a left bundle branch block. The echo demonstrates an EF of 40% with hypokinesis of the apex anterior wall and septum. May need further cardiac testing at this point. A BNP was a lso obtained which was slightly elevated to 170, and given his shortness of breath and his new onset requirement for her oxygen, he was started on IV Lasix twice daily. 01/07/2020: Doing better today, needing less oxygen. He was given IV Lasix twice yesterday and then was switched to p.o. today he is needing less oxygen now that his heart rate is better controlled on the Cardizem and was ultimately switched to a beta-odilia. In discussion with cardiology, they feel that his heart failure with an EF of 40% is likely secondary to both the alcohol use as well as his uncontrolled arrhythmia which is likely in for a few days. Now that the heart rate is under control his EF should improve and I will see him as an outpatient and if necessary at that time if there is no improvement in his EF or he is still in an arrhythmia they will consider heart cath at that time. He will likely need to be discharged on Lasix as well as metoprolol. We will see if we can get him off the oxygen, and if not will have an ambulatory pulse ox tomorrow in the morning to evaluate for possible discharge on oxygen. Inpatient E&M: [id number] [facility] Hosp L2
[2020-01-07] MEDS: Furosemide 40 MG/4 ML Vial IV (16:28)
[2020-01-07] MEDS: Pravastatin 40 MG Tablet PO (21:46)
[2020-01-07] MEDS: Polyethylene Glycol 3350 17 GM PACKET PO (21:49)
[2020-01-08] VITALS (16 sets, daily range): BP systolic 98–125; BP diastolic 55–75; PULSE 64–132; RESP 16–20; TEMP 36.1–36.6; O2SAT 86–99
[2020-01-08 07:25] LABS: Anion Gap 5 (5-15); BUN 28 mg/dL (7-18); BUN/Creat Ratio 31.9 RATIO (10-20); Calcium,Total 8.7 mg/dL (8.5-10.1); Chloride 104 mmol/L (98-107); Creatinine, Serum 0.88 mg/dL (0.70-1.30); EST Glomerular Filtration Rate 90 mL/min (>60); Est Glom Filt Rate - Afr Amer 109 mL/min (>60); Estimated Creatinine Clearance 70.17 ml/min; Glucose 111 mg/dL (74-106); Potassium 3.7 mmol/L (3.5-5.1); Sodium Level 137 mmol/L (136-145)
[2020-01-08] MEDS: Thiamine Hydrochloride 100 MG Tablet PO (09:08)
[2020-01-08] MEDS: Tamsulosin HCl 0.4 MG Capsule PO (09:08)
[2020-01-08] MEDS: Furosemide 40 MG Tablet PO (09:08)
[2020-01-08] MEDS: Folic Acid 1 MG Tablet PO ×2 (09:08→17:54)
[2020-01-08] MEDS: APIXABAN 5 MG TABLET PO ×2 (09:08→21:17)
[2020-01-08] MEDS: Losartan Potassium 50 MG Tablet PO (09:08)
[2020-01-08] MEDS: Allopurinol 300 MG Tablet PO (09:08)
[2020-01-08] MEDS: Metoprolol Tartrate 100 MG Tablet PO ×2 (09:09→21:17)
--- NOTE | 2020-01-08 11:21 | PN_ITS ---
<Sarmad Vasques - Last Filed: 01/08/20 11:21> Patient Problems: Active and Suspected Problems (Last Reviewed 09/21/18 @ 14:04 by Deanna Velazco) Atrial flutter with rapid ventricular response (Acute) Reason for Visit: afib rvr Subjective: No improvement in heart rate. up to the 130s at rest lying in bed. Still on significant amount of o2. No CP, palp, SOB at rest, dizziness, or LH. Vitals/I&O's: Vital Signs Temp Pulse Resp BP Pulse Ox 97.7 F L 129 H 20 H 125/75 H 94 01/08/20 05:45 01/08/20 09:09 01/08/20 05:45 01/08/20 09:09 01/08/20 07:29 Oxygen Flow Rate (L/min) 2 Oxygen Delivery Method Nasal Cannula Weight: 235 lb 14.314 oz Body Mass Index (BMI) 35.9 Intake and Output for Last 24 Hours 01/06/20 01/07/20 01/08/20 23:59 23:59 23:59 Intake Total 2867.00 / 2882.00 410.00 / 650.00 480 / 480 Output Total 2075 / 2075 825 / 1025 525 / 525 Balance 792.00 / 807.00 -415.00 / -375.00 -45 / -45 General: Alert, Oriented x3, Cooperative HEENT: Atraumatic, PERRLA, EOMI, Normocephalic Neck: Supple, No JVD, Negative Carotid Bruits Lungs: Diminished, Rales - BL bases Cardiovascular: No murmurs, Irregular Rate, Tachycardic Abdomen: Bowel Sounds Present, Soft, Non Tender Extremities: No edema, Capillary Refill Less than 3 Seconds Skin: No rashes, No breakdown Musculoskeletal: No Tenderness to Palpation of Joints or Extremities Neurological: Cranial nerves II-XII grossly intact Psych/Mental Status: Normal Affect, Appropriate, Alert and oriented to time, place, person, mood and affect Microbiology Past 72 Hours 01/05/20 18:20 Mucosa - Nasopharyngeal Respiratory Panel (PCR) - Final Laboratory Results 01/08/20 05:42: Sodium 137, Potassium 3.7, Chloride 104, Carbon Dioxide 28.0, Anion Gap 5, BUN 28 H, Creatinine 0.88, Estim Creat Clear Calc 70.17, Est GFR (MDRD) Af Amer 109, Est GFR (MDRD) Non-Af 90, BUN/Creatinine Ratio 31.9 H, Glucose 111 H, Calcium 8.7 Current Medications Acetaminophen (Tylenol) 650 mg PO Q6H PRN PRN PRN Reason: Pain Score 1-10/Temp > 100.7 F [facility]rim) [facility] Last Admin: 01/08/20 09:08 Dose: 300 mg Documented by: Apixaban (Eliquis) 5 mg PO BID [facility] Last Admin: 01/08/20 09:08 Dose: 5 mg Documented by: Cholecalciferol (Vitamin D (25mcg)) 5,000 unit PO DAILY [facility] Last Admin: 01/08/20 09:08 Dose: 5,000 unit Documented by: Folic Acid (Folic Acid) [facility] Last Admin: 01/08/20 09:08 Dose: 1 mg Documented by: Furosemide (Lasix) 40 mg PO DAILY [facility] Last Admin: 01/08/20 09:08 Dose: 40 mg Documented by: Guaifenesin (Robitussin) 10 ml PO Q6H PRN PRN PRN Reason: Cough, congestion. Sodium Chloride () 250 mls @ 15 mls/hr IV .[id number] PRN PRN Reason: Saline Flush Sodium Chloride () 250 mls @ 15 mls/hr IV .[id number] PRN PRN Reason: Additional IVPB Infusion Losartan Potassium (Cozaar) 50 mg PO DAILY [facility] Last Admin: 01/08/20 09:08 Dose: 50 mg Documented by: Metoprolol Tartrate (Lopressor (Beta Odilia)) 100 mg PO BID [facility] Last Admin: 01/08/20 09:09 Dose: 100 mg Documented by: Nicotine (Nicoderm Cq (Pbkc)) 21 mg TRANSDERM. DAILY [facility] Last Admin: 01/08/20 09:08 Dose: 21 mg Documented by: Ondansetron HCl (Zofran) 4 mg IV Q8H PRN PRN PRN Reason: NAUSEA/VOMITING Last Admin: 01/06/20 12:48 Dose: 4 mg Documented by: Polyethylene Glycol (Miralax) 17 gm PO DAILY PRN PRN Reason: Constipation Last Admin: 01/07/20 21:49 Dose: 17 gm Documented by: Pravastatin Sodium (Pravachol) 40 mg PO DAILY@2200 [facility] Last Admin: 01/07/20 21:46 Dose: 40 mg Documented by: Senna/Docusate Sodium (Senokot-S, Hayley-Colace) 2 tablet PO BID PRN PRN PRN Reason: Constipation Sodium Chloride () 10 - 40 ml IV UD PRN PRN Reason: SALINE FLUSH Last Admin: 01/07/20 16:29 Dose: 10 ml Documented by: Tamsulosin HCl (Flomax) 0.4 mg PO DAILY [facility] Last Admin: 01/08/20 09:08 Dose: 0.4 mg Documented by: Thiamine HCl (Vitamin B1) [facility] Last Admin: 01/08/20 09:08 Dose: 100 mg Documented by: STROKE Vital Signs/Narrative: Vital Signs Pulse BP Pulse Ox 01/08/20 09:09 129 H 125/75 H 01/08/20 07:29 94 Medical Necessity - Tobacco Use Smoking Status: Former smoker Assessment/Plan All Active Problems (Last Reviewed 09/21/18 @ 14:04 by Deanna Velazco) Atrial flutter with rapid ventricular response (Acute) 1. Afib rvr - stable at rest, just sitting up in bed the rate jumped into the 120 range, but did settle quickly. Cardiology following. Continue apixaban, metoprolol. Did improve on cardizem drip, may need to go back on cardizem in addition to beta odilia. -Echocardiogram with ejection fraction 40%, stage I diastolic dysfunction, hypokinesis of the apex, anterior wall and septum. 2. Acute hypoxic resp failure 2/2 acute systolic CHF - continue lasix. still requiring up to 5lpm o2 via NC this am. baseline = 0. Wean as tolerated, continue fluid restriction, sodium restriction. Continue losartan. 3. HTN - stable 4. BPH - flomax 5. HLD - statin DVT ppx: Eliquis DC planning: wean o2 to off if possible otherwise home o2. This patient was seen by Sarmad Vasques PA-C under the supervision of Dr. Terry. <Mike Terry F - Last Filed: 01/08/20 16:12> Vitals/I&O's: Vital Signs Temp Pulse Resp BP Pulse Ox 97 F L 73 16 104/55 L 90 01/08/20 12:20 01/08/20 14:31 01/08/20 12:20 01/08/20 12:20 01/08/20 15:07 Oxygen Flow Rate (L/min) [ 2 AMBULATION with Oxygen] Oxygen Flow Rate (L/min) 2 Oxygen Delivery Method Nasal Cannula Weight: 235 lb 14.314 oz Body Mass Index (BMI) 35.9 Intake and Output for Last 24 Hours 01/06/20 01/07/20 01/08/20 23:59 23:59 23:59 Intake Total 2867.00 / 2882.00 410.00 / 650.00 870 / 870 Output Total 2075 / 2075 825 / 1025 1005 / 1005 Balance 792.00 / 807.00 -415.00 / -375.00 -135 / -135 Microbiology Past 72 Hours 01/05/20 18:20 Mucosa - Nasopharyngeal Respiratory Panel (PCR) - Final Laboratory Results 01/08/20 05:42: Sodium 137, Potassium 3.7, Chloride 104, Carbon Dioxide 28.0, Anion Gap 5, BUN 28 H, Creatinine 0.88, Estim Creat Clear Calc 70.17, Est GFR (MDRD) Af Amer 109, Est GFR (MDRD) Non-Af 90, BUN/Creatinine Ratio 31.9 H, Glucose 111 H, Calcium 8.7 Current Medications Acetaminophen (Tylenol) 650 mg PO Q6H PRN PRN PRN Reason: Pain Score 1-10/Temp > 100.7 F Allop[facility]oprim) [facility] Last Admin: 01/08/20 09:08 Dose: 300 mg Documented by: Apixaban (Eliquis) 5 mg PO BID [facility] Last Admin: 01/08/20 09:08 Dose: 5 mg Documented by: Cholecalciferol (Vitamin D (25mcg)) 5,000 unit PO DAILY [facility] Last Admin: 01/08/20 09:08 Dose: 5,000 unit Documented by: Folic Acid (Folic Acid) [facility] Last Admin: 01/08/20 09:08 Dose: 1 mg Documented by: Furosemide (Lasix) 40 mg PO DAILY [facility] Last Admin: 01/08/20 09:08 Dose: 40 mg Documented by: Guaifenesin (Robitussin) 10 ml PO Q6H PRN PRN PRN Reason: Cough, congestion. Sodium Chloride () 250 mls @ 15 mls/hr IV .[id number] PRN PRN Reason: Saline Flush Sodium Chloride () 250 mls @ 15 mls/hr IV .[id number] PRN PRN Reason: Additional IVPB Infusion Losartan Potassium (Cozaar) 50 mg PO DAILY [facility] Last Admin: 01/08/20 09:08 Dose: 50 mg Documented by: Metoprolol Tartrate (Lopressor (Beta Odilia)) 100 mg PO BID [facility] Last Admin: 01/08/20 09:09 Dose: 100 mg Documented by: Nicotine (Nicoderm Cq (Pbkc)) 21 mg TRANSDERM. DAILY [facility] Last Admin: 01/08/20 09:08 Dose: 21 mg Documented by: Ondansetron HCl (Zofran) 4 mg IV Q8H PRN PRN PRN Reason: NAUSEA/VOMITING Last Admin: 01/06/20 12:48 Dose: 4 mg Documented by: Polyethylene Glycol (Miralax) 17 gm PO DAILY PRN PRN Reason: Constipation Last Admin: 01/07/20 21:49 Dose: 17 gm Documented by: Pravastatin Sodium (Pravachol) 40 mg PO DAILY@2200 [facility] Last Admin: 01/07/20 21:46 Dose: 40 mg Documented by: Senna/Docusate Sodium (Senokot-S, Hayley-Colace) 2 tablet PO BID PRN PRN PRN Reason: Constipation Sodium Chloride () 10 - 40 ml IV UD PRN PRN Reason: SALINE FLUSH Last Admin: 01/07/20 16:29 Dose: 10 ml Documented by: Tamsulosin HCl (Flomax) 0.4 mg PO DAILY [facility] Last Admin: 01/08/20 09:08 Dose: 0.4 mg Documented by: Thiamine HCl (Vitamin B1) [facility] Last Admin: 01/08/20 09:08 Dose: 100 mg Documented by: STROKE Vital Signs/Narrative: Vital Signs Temp Pulse Resp BP Pulse Ox Pulse Ox Pulse Ox 01/08/20 15:07 86 94 01/08/20 14:31 73 01/08/20 12:20 97 F L 103 H 16 104/55 L 99 Pulse Ox 01/08/20 15:07 90 01/08/20 14:31 01/08/20 12:20 Addendum: Dr. Terry I personally examined the patient and reviewed the chart. I agree with the above. 74-year-old male who presented to his primary care's office with not feeling well, was found to have a tachyarrhythmia. His heart rate was over 130 and the EKG that was done in the office appeared to be a wide-complex tachycardia. Cardiology was consulted and felt that he had A. fib/flutter with a left bundle branch block. Because of his sore throat and illness he was tested for COVID which was negative and he was started on a Cardizem drip. It appears that the Cardizem drip has worked as his heart rate is now in the 60s. An echo is pending as a EKG in 2012 did not demonstrate a left bundle branch block. The echo demonstrates an EF of 40% with hypokinesis of the apex anterior wall and septum. May need further cardiac testing at this point. A BNP was also obtained which was slightly elevated to 170, and given his shortness of breath and his new onset requirement for her oxygen, he was started on IV Lasix twice daily. 01/07/2020: Doing better today, needing less oxygen. He was given IV Lasix twice yesterday and then was switched to p.o. today he is needing less oxygen now that his heart rate is better controlled on the Cardizem and was ultimately switched to a beta-odilia. In discussion with cardiology, they feel that his heart failure with an EF of 40% is likely secondary to both the alcohol use as well as his uncontrolled arrhythmia which is likely in for a few days. Now that the heart rate is under control his EF should improve and I will see him as an outpatient and if necessary at that time if there is no improvement in his EF or he is still in an arrhythmia they will consider heart cath at that time. He will likely need to be discharged on Lasix as well as metoprolol. We will see if we can get him off the oxygen, and if not will have an ambulatory pulse ox tomorrow in the morning to evaluate for possible discharge on oxygen. 01/08/2020: Did well overnight, he need to be bumped up to 6 L overnight but was able to come back down to 2 L nasal cannula once he woke up. His heart rate was elevated to the 130s in the morning until he took his metoprolol. We will keep him 1 more day and see if the same thing happens in the morning if so we may need to add Cardizem to help control his heart rate. He did have his ambulatory pulse ox and he does qualify for home O2 as he was 86% on room air while ambulating. We will continue with his oral Lasix and I did decrease his fluid restriction from 1800 to 1500 cc/day. Inpatient E&M: [id number] Subs Hosp L2
--- NOTE | 2020-01-08 12:06 | CASEMGMT ---
RN CM Note: Insurance look up if oxygen is needed. InNetwork providers are [facility], [place]; [place], [facility] or [facility]. Intro role of CM to patient and his . Reviewed innetwork providers if oxygen would be needed and reviewed how oxygen set up would be completed. They prefer [facility]. - Home oxygen testing prior to discharge. See GREEN SHEET for details. Chi HAGEN RN ACM
[2020-01-08] MEDS: Pravastatin 40 MG Tablet PO (21:17)
[2020-01-09] VITALS (13 sets, daily range): BP systolic 92–124; BP diastolic 52–67; PULSE 73–125; RESP 16–18; TEMP 36.4–36.6; O2SAT 91–97
[2020-01-09 06:45] LABS: Anion Gap 4 (5-15); BUN 28 mg/dL (7-18); BUN/Creat Ratio 39.5 RATIO (10-20); Calcium,Total 8.6 mg/dL (8.5-10.1); Chloride 104 mmol/L (98-107); Creatinine, Serum 0.71 mg/dL (0.70-1.30); EST Glomerular Filtration Rate 115 mL/min (>60); Est Glom Filt Rate - Afr Amer 140 mL/min (>60); Estimated Creatinine Clearance 61.75 ml/min; Glucose 108 mg/dL (74-106); Potassium 3.8 mmol/L (3.5-5.1); Sodium Level 137 mmol/L (136-145)
[2020-01-09] MEDS: Losartan Potassium 50 MG Tablet PO (08:53)
[2020-01-09] MEDS: Furosemide 40 MG Tablet PO (08:53)
[2020-01-09] MEDS: Folic Acid 1 MG Tablet PO (08:53)
[2020-01-09] MEDS: Thiamine Hydrochloride 100 MG Tablet PO (08:53)
[2020-01-09] MEDS: Allopurinol 300 MG Tablet PO (08:53)
[2020-01-09] MEDS: APIXABAN 5 MG TABLET PO (08:53)
[2020-01-09] MEDS: Tamsulosin HCl 0.4 MG Capsule PO (08:53)
[2020-01-09] MEDS: Metoprolol Tartrate 100 MG Tablet PO (08:54)
--- NOTE | 2020-01-09 12:05 | DCINST_ITS ---
- Discharge Diagnoses Current Active Problems: Current Active and Chronic Problems (Last Reviewed 09/21/18 @ 14:04 by Deanna Velazco) Atrial flutter with rapid ventricular response (Acute) You will use the following diet at home:: Cardiac, Other - Fluid restriction : 1800 cc per day Your food should be the consistency of: Regular Your liquids should be the consistency of: Regular/Thin Discharge Activity: Return to Normal Activity Allergies/Adverse Reactions: Allergies Sulfa (Sulfonamide Antibiotics) Allergy (Intermediate, Verified 01/05/20 15:20) Hives Medications to take at Discharge losartan 50 mg tablet 50 mg PO DAILY 03/02/18 pravastatin 40 mg tablet 40 mg PO DAILY 03/02/18 Tamsulosin HCl [Flomax] 0.4 mg PO DAILY 03/05/18 Allopurinol [Zyloprim] 300 mg PO DAILY 01/05/20 Cholecalciferol (Vitamin D3) [Vitamin D3] 5,000 unit PO DAILY 01/05/20 Apixaban [Eliquis] 5 mg PO BID #60 tab 01/09/20 Digoxin [Lanoxin] 125 mcg PO DAILY #30 tab 01/09/20 Furosemide [Lasix] 40 mg PO DAILY #30 tab 01/09/20 Metoprolol Tartrate [Lopressor (beta sheyla)] 100 mg PO BID #60 tab 01/09/20 The following prescriptions were given: Apixaban [Eliquis] 5 mg PO BID #60 tab Transmission Status: [facility]ending to [id number] Digoxin [Lanoxin] 125 mcg PO DAILY #30 tab Transmission Status: Pending to [id number] Furosemide [Lasix] 40 mg PO DAILY #30 tab Transmission Status: [facility]ending to [id number] Metoprolol Tartrate [Lopressor (beta sheyla)] 100 mg PO BID #60 tab Transmission Status: [facility]ending [id number] Primary Care Physician: Vinod Kirby Chi, MD [Primary Care Provider] - Please follow up with your Primary Care Physician in: 1-2 weeks Test Results: Test results from this visit will be discussed in further detail at your follow- up appointment, if applicable. Please Follow Up With: Elaina Andersen PA When: 2 weeks Proposed Discharge Date: 01/09/20
--- NOTE | 2020-01-09 12:15 | PN.CARD_ITS ---
Objective: Vital Signs Temp Pulse Resp BP Pulse Ox 97.6 F L 92 16 124/67 H 97 01/09/20 09:00 01/09/20 11:05 01/09/20 09:00 01/09/20 09:00 01/09/20 09:00 Oxygen Flow Rate (L/min) [ 2 AMBULATION with Oxygen] Oxygen Flow Rate (L/min) 2 Oxygen Delivery Method Nasal Cannula Weight: 235 lb 7.259 oz Body Mass Index (BMI) 35.9 Intake and Output for Last 24 Hours 01/07/20 01/08/20 01/09/20 23:59 23:59 23:59 Intake Total 410.00 / 650.00 1590 / 1590 40 / 40 Output Total 825 / 1025 1630 / 1630 425 / 425 Balance -415.00 / -375.00 -40 / -40 -385 / -385 General: Awake, Alert, Oriented x 3 HEENT: PERRL, EOMI, Sclera Non Icteric Neck: Supple, Good ROM, No Lymph Node Enlargement Lungs: Clear to auscultation Cardiovascular: Irregular Rhythm, Normal S1, Normal S2, No Murmurs, No Rubs, No Gallops 01/09/20 05:10: Sodium 137, Potassium 3.8, Chloride 104, Carbon Dioxide 29.0, Anion Gap 4 L, BUN 28 H, Creatinine 0.71, Est GFR (MDRD) Af Amer 140, Est GFR (MDRD) Non-Af 115, BUN/Creatinine Ratio 39.5 H, Glucose 108 H, Calcium 8.6 Rhythm: EKG: ECHO: Stress Test: Cardiac Cath: PCI: CT Surgery: Holter monitor: EPS: PPM: CXR: Chest CT Scan: Medical Necessity - Tobacco Use Smoking Status: Former smoker Assessment/Plan 74-year-old patient, I was consulted to evaluate this patient today as he has underlying atrial fibrillation with rapid ventricular rate. Patient presented to the hospital complaining of symptoms of shortness of breath and palpitation he does not have any chest pain. On review of the record he had underlying atrial fibrillation with rapid ventricular rate started on treatment with metoprolol which controlled the rate this morning his heart rate was still under around 100?110. There was no prior history of atrial fibrillation. Chads vASC risk score is more than 2 At bedside he is alert orientated comfortable. Echocardiographic evaluation showed ejection fraction of around 40%. This could be secondary to tachycardia induced cardiomyopathy versus ischemic heart disease where he will need evaluation further with nuclear stress test as an outpatient. Cardiac exam underlying rhythm is A. fib S1-S2 is irregular he does not have any murmur Chest exam is clear to auscultation rest of the physical exam is unremarkable. Recommendation #1 patient was on anticoagulation with Eliquis his renal function is normal We added digoxin to the current treatment will be given 0.25 mg of digoxin followed by 0.125 daily for better control of the rate Also recommend to follow-up with a minibus driver within 2 weeks to discuss further plan and consideration of early cardioversion once he is already on anticoagulation.
--- NOTE | 2020-01-09 13:05 | DS.PCM_ITS ---
<Sarmad Vasques - Last Filed: 01/09/20 13:05> Discharge Date and Diagnosis - Problem List Patient Problems: Active and Suspected Problems (Last Reviewed 09/21/18 @ 14:04 by Deanna Velazco) Atrial flutter with rapid ventricular response (Acute) Date of Admission: 01/05/20 Date of Discharge: 01/09/20 - Primary Discharge Diagnosis Acute Problems: Active Problems (Last Reviewed 09/21/18 @ 14:04 by Deanna Velazco) Atrial flutter with rapid ventricular response (Acute) Acute systolic congestive heart failure Acute hypoxic respiratory failure 2/2 Acute CHF - Secondary Discharge Diagnosis Chronic Problems: Chronic Problems (Last Reviewed 09/21/18 @ 14:04 by Deanna Velazco) 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 Mild cardiomegaly. 2. Bibasilar densities thought to be chronic. There is no acute pulmonary disease. 2D Echo: Interpretation Summary The study was technically difficult. Contrast injection was performed. The estimated ejection fraction is 40 %. hypokinesis of the apex, anterior wall and septum Stage 1 diastolic dysfunction. Trivial mitral valve insufficiency. The study was technically difficult. Contrast injection was performed. CT/CTA Chest W/WO Contrast IMPRESSION: Congestive heart failure. No demonstrated pulmonary embolism or arterial dissection. There is subcutaneous rounded opacity in the right submandibular region measures 3 cm in diameter most likely represent an epidermoid cyst. Consults: Cardiology - Jeffrey Operations: None Procedures: 2-D Echocardiogram Summary of Care Provided: Hospital course: The patient is a 74 year old M with past medical history of hypertension, hyper lipidemia, BPH, gout, who presented to the emergency room with complaints of shortness of breath and tachycardia. He was found to have a wide-complex tachycardia and left bundle branch block. Troponin was negative. He was given IV adenosine and Cardizem bolus with some improvement. He was admitted to the PCU and placed on telemetry. Cardizem drip was started. He had good control with Cardizem drip. Cardiology was consulted. He was transitioned to metoprolol. An echocardiogram was obtained which demonstrated an ejection fraction of 40%. He was also felt to have acute congestive heart failure and was treated with IV Lasix. He had good response with Lasix. BNP was mildly elevated at 170. Troponin was negative x3. TSH was normal. He was negative for COVID. He initially required up to 6 L of oxygen however was able to be completely weaned off oxygen prior to discharge. He did continue to have some difficulty with rate control with some accelerations particularly with light activity. Cardiology recommended starting digoxin once daily. He was discharged home in stable condition. 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 He will need to follow-up with his PCP in 1 to 2 weeks. He was discharged on Eliquis, metoprolol, digoxin, lasix, losartan. HCTZ and meloxicam were removed from his home meds. He will need to have a BMP checked at follow-up with his PCP. This patient was seen by Sarmad Vasques PA-C under the supervision of Doctor Terry. [] Patient Problems: Active and Suspected Problems (Last Reviewed 09/21/18 @ 14:04 by Deanna Velazco) Atrial flutter with rapid ventricular response (Acute) - Physical Exam Vitals/I&O's: Vital Signs Temp Pulse Resp BP Pulse Ox 97.6 F L 92 16 124/67 H 95 01/09/20 09:00 01/09/20 11:05 01/09/20 09:00 01/09/20 09:00 01/09/20 12:41 Oxygen Flow Rate (L/min) [ 2 AMBULATION with Oxygen] Oxygen Flow Rate (L/min) 2 Oxygen Delivery Method Nasal Cannula Weight: 235 lb 7.259 oz Body Mass Index (BMI) 35.9 Intake and Output for Last 24 Hours 01/07/20 01/08/20 01/09/20 23:59 23:59 23:59 Intake Total 410.00 / 650.00 1590 / 1590 460 / 460 Output Total 825 / 1025 1630 / 1630 825 / 825 Balance -415.00 / -375.00 -40 / -40 -365 / -365 General: Alert, Oriented x3, Cooperative HEENT: Atraumatic, PERRLA, EOMI, Normocephalic Neck: Supple, No JVD, Negative Carotid Bruits Lungs: Clear to auscultation, Normal air movement Cardiovascular: No murmurs, Irregular Rate, Tachycardic Abdomen: Bowel Sounds Present, Soft, Non Tender Extremities: No edema, Capillary Refill Less than 3 Seconds Skin: No rashes, No breakdown Musculoskeletal: No Tenderness to Palpation of Joints or Extremities Neurological: Cranial nerves II-XII grossly intact Psych/Mental Status: Normal Affect, Appropriate, Alert and oriented to time, place, person, mood and affect Laboratory Results 01/09/20 05:10: Sodium 137, Potassium 3.8, Chloride 104, Carbon Dioxide 29.0, Anion Gap 4 L, BUN 28 H, Creatinine 0.71, Estim Creat Clear Calc 61.75, Est GFR (MDRD) Af Amer 140, Est GFR (MDRD) Non-Af 115, BUN/Creatinine Ratio 39.5 H, Glucose 108 H, Calcium 8.6 Current Medications Acetaminophen (Tylenol) 650 mg PO Q6H PRN PRN PRN Reason: Pain Score 1-10/Temp > 100.7 F [facility] Last Admin: 01/09/20 08:53 Dose: 300 mg Documented by: Apixaban (Eliquis) 5 mg PO BID [facility] Last Admin: 01/09/20 08:53 Dose: 5 mg Documented by: Cholecalciferol (Vitamin D (25mcg)) 5,000 unit PO DAILY [facility] Last Admin: 01/09/20 08:54 Dose: 5,000 unit Documented by: Digoxin (Lanoxin) 125 mcg PO DAILY [facility] Folic Acid (Folic Acid) [facility] Last Admin: 01/09/20 08:53 Dose: 1 mg Documented by: Furosemide (Lasix) 40 mg PO DAILY [facility] Last Admin: 01/09/20 08:53 Dose: 40 mg Documented by: Guaifenesin (Robitussin) 10 ml PO Q6H PRN PRN PRN Reason: Cough, congestion. Sodium Chloride () 250 mls @ 15 mls/hr IV .[id number] PRN PRN Reason: Saline Flush Sodium Chloride () 250 mls @ 15 mls/hr IV .[id number] PRN PRN Reason: Additional IVPB Infusion Losartan Potassium (Cozaar) 50 mg PO DAILY [facility] Last Admin: 01/09/20 08:53 Dose: 50 mg Documented by: Metoprolol Tartrate (Lopressor (Beta Odilia)) 100 mg PO BID [facility] Last Admin: 01/09/20 08:54 Dose: 100 mg Documented by: Nicotine (Nicoderm Cq ([facility])) 21 mg TRANSDERM. DAILY [facility] Last Admin: 01/09/20 08:54 Dose: 21 mg Documented by: Ondansetron HCl (Zofran) 4 mg IV Q8H PRN PRN PRN Reason: NAUSEA/VOMITING Last Admin: 01/06/20 12:48 Dose: 4 mg Documented by: Polyethylene Glycol (Miralax) 17 gm PO DAILY PRN PRN Reason: Constipation Last Admin: 01/07/20 21:49 Dose: 17 gm Documented by: Pravastatin Sodium (Pravachol) 40 mg PO DAILY@2200 [facility] Last Admin: 01/08/20 21:17 Dose: 40 mg Documented by: Senna/Docusate Sodium (Senokot-S, Hayley-Colace) 2 tablet PO BID PRN PRN PRN Reason: Constipation Sodium Chloride () 10 - 40 ml IV UD PRN PRN Reason: SALINE FLUSH Last Admin: 01/07/20 16:29 Dose: 10 ml Documented by: Tamsulosin HCl (Flomax) 0.4 mg PO DAILY [facility] Last Admin: 01/09/20 08:53 Dose: 0.4 mg Documented by: Thiamine HCl (Vitamin B1) [facility] Last Admin: 01/09/20 08:53 Dose: 100 mg Documented by: Discharge Diet: Low fat/ Low Cholesterol, 2000 mg Sodium Diet Discharge Activity: Return to Normal Activity Home Medications: Medications to take at Discharge losartan 50 mg tablet 50 mg PO DAILY 03/02/18 pravastatin 40 mg tablet 40 mg PO DAILY 03/02/18 Tamsulosin HCl [Flomax] 0.4 mg PO DAILY 03/05/18 Allopurinol [Zyloprim] 300 mg PO DAILY 01/05/20 Cholecalciferol (Vitamin D3) [Vitamin D3] 5,000 unit PO DAILY 01/05/20 Apixaban [Eliquis] 5 mg PO BID #60 tab 01/09/20 Digoxin [Lanoxin] 125 mcg PO DAILY #30 tab 01/09/20 Furosemide [Lasix] 40 mg PO DAILY #30 tab 01/09/20 Metoprolol Tartrate [Lopressor (beta odilia)] 100 mg PO BID #60 tab 01/09/20 Following Prescriptions Were Given to Patient: Apixaban [Eliquis] 5 mg PO BID #60 tab Transmission Status: [id number] Digoxin [Lanoxin] 125 mcg PO DAILY #30 tab Transmission Status: Received by [id number] Furosemide [Lasix] 40 mg PO DAILY #30 tab Transmission Status: Received by [id number] Metoprolol Tartrate [Lopressor (beta odilia)] 100 mg PO BID #60 tab Transmission Status: Re[facility] by [id number] Primary Care Physician: Vinod Kirby Chi, MD [Primary Care Provider] - Please follow up with your Primary Care Physician in: 1-2 weeks Please Follow Up With: Elaina Andersen PA When: 2 weeks Please Follow Up With: Vinod Kirby Chi, MD When: 1-2 weeks Disposition: Home Minutes spent on discharge:: 35 Patient Condition:: Stable Medical Necessity - Tobacco Use Smoking Status: Former smoker Meaningful Use Info Meaningful Use Diagnoses (Choose all that apply): CHF - CHF EZRA/ARB ordered at discharge?: Yes Documented LVEF (%): 40 <Mike Terry - Last Filed: 01/09/20 14:52> Discharge Date and Diagnosis - Primary Discharge Diagnosis Acute Problems: Active Problems (Last Reviewed 09/21/18 @ 14:04 by Deanna Velazco) Atrial flutter with rapid ventricular response (Acute) - Secondary Discharge Diagnosis Chronic Problems: Chronic Problems (Last Reviewed 09/21/18 @ 14:04 by Deanna Velazco) 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) Acute cervical sprain (Chronic) 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) Benign essential hypertension (Chronic) Hospital Course and Treatment Summary of Care Provided: The patient is a 74 year old M [] - Physical Exam Vitals/I&O's: Vital Signs Temp Pulse Resp BP Pulse Ox 97.6 F L 96 16 124/67 H 95 01/09/20 09:00 01/09/20 13:30 01/09/20 09:00 01/09/20 09:00 01/09/20 12:41 Oxygen Flow Rate (L/min) [ 2 AMBULATION with Oxygen] Oxygen Flow Rate (L/min) 2 Oxygen Delivery Method Nasal Cannula Weight: 235 lb 7.259 oz Body Mass Index (BMI) 35.9 Intake and Output for Last 24 Hours 01/07/20 01/08/20 01/09/20 23:59 23:59 23:59 Intake Total 410.00 / 650.00 1590 / 1590 460 / 460 Output Total 825 / 1025 1630 / 1630 825 / 825 Balance -415.00 / -375.00 -40 / -40 -365 / -365 Laboratory Results 01/09/20 05:10: Sodium 137, Potassium 3.8, Chloride 104, Carbon Dioxide 29.0, Anion Gap 4 L, BUN 28 H, Creatinine 0.71, Estim Creat Clear Calc 61.75, Est GFR (MDRD) Af Amer 140, Est GFR (MDRD) Non-Af 115, BUN/Creatinine Ratio 39.5 H, Glucose 108 H, Calcium 8.6 Current Medications Acetaminophen (Tylenol) 650 mg PO Q6H PRN PRN PRN Reason: Pain Score 1-10/Temp > 100.7 F [facility] Last Admin: 01/09/20 08:53 Dose: 300 mg Documented by: Apixaban (Eliquis) 5 mg PO BID [facility] Last Admin: 01/09/20 08:53 Dose: 5 mg Documented by: Cholecalciferol (Vitamin D (25mcg)) 5,000 unit PO DAILY [facility] Last Admin: 01/09/20 08:54 Dose: 5,000 unit Documented by: Digoxin (Lanoxin) 125 mcg PO DAILY [facility] Last Admin: 01/09/20 13:29 Dose: 125 mcg Documented by: Folic Acid (Folic Acid) [facility] Last Admin: 01/09/20 08:53 Dose: 1 mg Documented by: Furosemide (Lasix) 40 mg PO DAILY [facility] Last Admin: 01/09/20 08:53 Dose: 40 mg Documented by: Guaifenesin (Robitussin) 10 ml PO Q6H PRN PRN PRN Reason: Cough, congestion. Sodium Chloride () 250 mls @ 15 mls/hr IV .[id number] PRN PRN Reason: Saline Flush Sodium Chloride () 250 mls @ 15 mls/hr IV .[id number] PRN PRN Reason: Additional IVPB Infusion Losartan Potassium (Cozaar) 50 mg PO DAILY [facility] Last Admin: 01/09/20 08:53 Dose: 50 mg Documented by: Metoprolol Tartrate (Lopressor (Beta Odilia)) 100 mg PO BID [facility] Last Admin: 01/09/20 08:54 Dose: 100 mg Documented by: Nicotine (Nicoderm Cq ([facility])) 21 mg TRANSDERM. DAILY [facility] Last Admin: 01/09/20 08:54 Dose: 21 mg Documented by: Ondansetron HCl (Zofran) 4 mg IV Q8H PRN PRN PRN Reason: NAUSEA/VOMITING Last Admin: 01/06/20 12:48 Dose: 4 mg Documented by: Polyethylene Glycol (Miralax) 17 gm PO DAILY PRN PRN Reason: Constipation Last Admin: 01/07/20 21:49 Dose: 17 gm Documented by: Pravastatin Sodium (Pravachol) 40 mg PO DAILY@2200 [facility] Last Admin: 01/08/20 21:17 Dose: 40 mg Documented by: Senna/Docusate Sodium (Senokot-S, Hayley-Colace) 2 tablet PO BID PRN PRN PRN Reason: Constipation Sodium Chloride () 10 - 40 ml IV UD PRN PRN Reason: SALINE FLUSH Last Admin: 01/07/20 16:29 Dose: 10 ml Documented by: Tamsulosin HCl (Flomax) 0.4 mg PO DAILY [facility] Last Admin: 01/09/20 08:53 Dose: 0.4 mg Documented by: Thiamine HCl (Vitamin B1) 100 mg PO DAILYCM [facility] Last Admin: 01/09/20 08:53 Dose: 100 mg Documented by: Addendum: Dr. Terry I personally examined the patient and reviewed the chart. I agree with the above. 74-year-old male who presented to his primary care's office with not feeling well, was found to have a tachyarrhythmia. His heart rate was over 130 and the EKG that was done in the office appeared to be a wide-complex tachycardia. Cardiology was consulted and felt that he had A. fib/flutter with a left bundle branch block. Because of his sore throat and illness he was tested for COVID which was negative and he was started on a Cardizem drip. It appears that the Cardizem drip has worked as his heart rate is now in the 60s. An echo is pending as a EKG in 2012 did not demonstrate a left bundle branch block. The echo demonstrates an EF of 40% with hypokinesis of the apex anterior wall and septum. May need further cardiac testing at this point. A BNP was also obtained which was slightly elevated to 170, and given his shortness of breath and his new onset requirement for her oxygen, he was started on IV Lasix twice daily. 01/07/2020: Doing better today, needing less oxygen. He was given IV Lasix twice yesterday and then was switched to p.o. today he is needing less oxygen now that his heart rate is better controlled on the Cardizem and was ultimately switched to a beta-odilia. In discussion with cardiology, they feel that his heart failure with an EF of 40% is likely secondary to both the alcohol use as well as his uncontrolled arrhythmia which is likely in for a few days. Now that the heart rate is under control his EF should improve and I will see him as an outpatient and if necessary at that time if there is no improvement in his EF or he is still in an arrhythmia they will consider heart cath at that time. He will likely need to be discharged on Lasix as well as metoprolol. We will see if we can get him off the oxygen, and if not will have an ambulatory pulse ox tomorrow in the morning to evaluate for possible discharge on oxygen. 01/08/2020: Did well overnight, he need to be bumped up to 6 L overnight but was able to come back down to 2 L nasal cannula once he woke up. His heart rate was elevated to the 130s in the morning until he took his metoprolol. We will keep him 1 more day and see if the same thing happens in the morning if so we may need to add Cardizem to help control his heart rate. He did have his ambulatory pulse ox and he does qualify for home O2 as he was 86% on room air while ambulating. We will continue with his oral Lasix and I did decrease his fluid restriction from 1800 to 1500 cc/day. 01/09/2020: He did well overnight, oxygen did not need to go up overnight. Heart rate is better controlled however we discussed the case with cardiology who recommended adding digoxin to help improve control. He will need to follow-up with cardiology as an outpatient for stress test and possible heart cath if his echocardiogram does not improve in the EF with medical management. I discussed the plan of discharge with him today and he expressed understanding the risks and benefits and would like to go home today. Inpatient E&M: 228[facility]
[2020-01-09] MEDS: Digoxin 125 MCG Tablet PO (13:29)
== END 2020-01-09 15:34 | disposition home or self-care (01) | DRG 308 ==
LOC: ED 17:36 → PCU 19:08
PROVIDERS: Internal Medicine Cardiovascular Disease; Physician Assistant; Admitting Provider Hospitalist; Emergency Provider Emergency Medicine; PCP Family Medicine Geriatric Medicine; Visit Provider Family Medicine
DX: I48.92 Unspecified atrial flutter (principal); I50.21 Acute systolic (congestive) heart failure; J96.01 Acute respiratory failure with hypoxia; I48.91 Unspecified atrial fibrillation; I11.0 Hypertensive heart disease with heart failure; N40.0 Benign prostatic hyperplasia without lower urinary tract symptoms; M10.9 Gout, unspecified; I47.1 Supraventricular tachycardia; I44.7 Left bundle-branch block, unspecified; Z79.899 Other long term (current) drug therapy; E66.9 Obesity, unspecified; E78.49 Other hyperlipidemia; M19.90 Unspecified osteoarthritis, unspecified site; Z87.19 Personal history of other diseases of the digestive system; Z87.891 Personal history of nicotine dependence; Z68.36 Body mass index [BMI] 36.0-36.9, adult; F10.20 Alcohol dependence, uncomplicated; M99.01 Segmental and somatic dysfunction of cervical region; M99.02 Segmental and somatic dysfunction of thoracic region; Z90.49 Acquired absence of other specified parts of digestive tract
CPT/HCPCS: 36415; 71045; 71275; 80048; 80053; 83735; 83880; 84443; 84484; 85025; 85610; 85730; 87633; 87635; 93005; 93306; 94762; 94799; 97166; 99283; J7030; Q9957; Q9967; A4216; C8929; J0153; J1940; J2405; U0003

== ENCOUNTER → 2020-01-13 14:10 | Outpatient (CLI) | payer MEDICARE, BC, SELFPAY ==
[2020-01-05 20:54] VITALS: BMI 35.9
[2020-01-13 16:25] LABS: Anion Gap 4 (5-15); BUN 26 mg/dL (7-18); BUN/Creat Ratio 29.8 RATIO (10-20); Calcium,Total 9.5 mg/dL (8.5-10.1); Chloride 106 mmol/L (98-107); Creatinine, Serum 0.87 mg/dL (0.70-1.30); EST Glomerular Filtration Rate 91 mL/min (>60); Est Glom Filt Rate - Afr Amer 110 mL/min (>60); Glucose 102 mg/dL (74-106); Potassium 3.9 mmol/L (3.5-5.1); Sodium Level 140 mmol/L (136-145)
== END ==
PROVIDERS: PCP Family Medicine Geriatric Medicine; Visit Provider Family Medicine Geriatric Medicine
DX: I10 Essential (primary) hypertension (principal)
CPT/HCPCS: 36415; 80048

== ENCOUNTER 2020-02-01 10:23 | Day surgery (SDC) | payer MEDICARE, BC, SELFPAY ==
--- NOTE | 2020-01-28 04:18 | HP_ITS ---
HPI HPI History of Present Illness Surgical H&P: Yes Details: This is a 74-year-old gentleman that presents here today for a hospital follow-up. Patient was admitted to [facility] on January 05, 2020 where he was noted to be in 2-1 atrial flutter. Patient was started on an anticoagulant and rate limiting medications. During his evaluation it was noted that his ejection fraction was 40%. There was question if this could be related to his atrial flutter. Stress test was not done during his hospital stay it was felt it could be done on an outpatient basis. Pt sts that symptoms started the week of the 01/04 where he felt more SOB with exertion. Specifically with any activity. He was seen by his PCP and then to the ER. He was noted to be in atrial flutter with 2:1. He still notes that he is fatigued. He does not feel as SOB. He sts that his HR has been variable at home from the 40-120's. He does not have any chest pain. He does not have any chest pressure/heaviness/tightness. He does not have any orthopnea. He does not have any edema. He does note fluttering in his chest. This is not persistent. He has had these episodes prior to his hospital stay. He finds that these are more frequent since he has been in the hospital. 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 Operator Required: No Is patient in pain?: No Allergies Sulfa (Sulfonamide Antibiotics) Allergy (Intermediate, Verified 01/28/20 11:21) Hives Medications losartan 50 mg tablet 50 mg PO DAILY 03/02/18 [History Confirmed 01/28/20] pravastatin 40 mg tablet 40 mg PO DAILY 03/02/18 [History Confirmed 01/28/20] Tamsulosin HCl [Flomax] 0.4 mg PO DAILY 03/05/18 [History Confirmed 01/28/20] Allopurinol [Zyloprim] 300 mg PO DAILY 01/05/20 [History Confirmed 01/28/20] Cholecalciferol (Vitamin D3) [Vitamin D3] 5,000 unit PO DAILY 01/05/20 [History Confirmed 01/28/20] apixaban 5 mg tablet 5 mg PO BID #60 tab 01/28/20 [Rx Confirmed 01/28/20] digoxin 125 mcg (0.125 mg) tablet 125 mcg PO DAILY #30 tab 01/28/20 [Rx Confirmed 01/28/20] furosemide 40 mg tablet 40 mg PO DAILY #30 tab 01/28/20 [Rx Confirmed 01/28/20] metoprolol tartrate 100 mg tablet 100 mg PO BID #60 tab 01/28/20 [Rx Confirmed 01/28/20] [facility] Medical History (Updated 01/28/20 @ 11:51 by Elaina FRANKLIN, PA) Cardiomyopathy in disease classified elsewhere (Acute) Atrial flutter (Acute) Familial combined hyperlipidemia (Chronic) Benign essential hypertension (Chronic) Arthritis (Acute) Gallstones (Acute) High cholesterol (Acute) Osteoarthritis (Acute) Hypertension (Chronic) Surgical History History of colectomy (Acute) History of knee surgery (Acute) History of laparoscopic cholecystectomy (Acute) history bilateral cataract surgery (Acute) Family History Son Asthma Social History (Updated 01/28/20 @ 16:18 by Elaina FRANKLIN, PA) Smoking Status: Former smoker alcohol intake: current alcohol intake frequency: a few times a week substance use type: does not use ROS Const Const: Positive for fatigue; negative for weakness, fever(s) or headache(s) Eyes Eyes: Negative for blind spots, loss of peripheral vision or transient loss of vision ENT ENT: Negative for headache(s), dizziness, tinnitus or Nosebleed/epistaxis Cardio Chest Pain: No Palpitations: No Edema: None Muscle aches with walking: None Resp Respiratory: Negative for SOB with activity, SOB at rest, SOB orthopnea\SOB lying down or Cough GI GI: Negative nausea, vomiting, heartburn or vomiting blood/hematemesis : Negative for hematuria Musc Musc: Negative for muscle aches/ myalgia Neuro Neuro: Negative for dizziness, lightheadedness, near syncope, syncope, orthostatic symptoms, headache(s) or weakness Prosper Hematologic/Lymphatic: Negative for easy bleeding Endo Endo: Positive for fatigue Cardiology Exam Const Appearance: cooperative, no acute distress and well developed Orientation: alert, awake and oriented x3 Head Head: normocephalic and atraumatic Mouth: moist mucous membranes Eyes General: appearance normal, both eyes and all related structures Conjunctivae: conjunctivae normal Pupils: PERRL EOM: EOM intact bilaterally Neck Neck: normal visual inspection, no lymphadenopathy and no JVD Carotids: Negative bruit Neck Mass: Negative Neck mass Chest Chest inspection: normal inspection of the chest and symmetric chest movement Auscultation: Bilateral: Clear to Auscultation Cardio Palpation: normal PMI Rate: regular rate Rhythm: irregularly irregular Heart sounds: S1 normal and S2 normal; negative rub, gallop or murmur GI GI: normal to inspection, soft, no hepatosplenomegaly and bowel sounds present; negative tender Neuro General: alert, awake, oriented x3, CN's II-XI intact bilaterally and moves all extremities Extremities Pulses: Normal: Right Posterior Tibial Pulse, Left Posterior Tibial Pulse, Right Radial Pulse, Left Radial Pulse Lower Extremity Edema: None: Bilateral Psych Psychological: normal affect Assessment & Plan 1. Benign essential hypertension I10 2. Atrial flutter I48.92 Plan EKG demonstrates atrial flutter. Patient has been anticoagulated, would like for him to be scheduled for a cardioversion next week. Instructions were given to him. After his cardioversion we will decide whether or not he needs to stay on his digoxin. He will follow-up after his cardioversion. Patient Instructions I will call with your date and time of the cardioversion. The day of the cardioversion: nothing to eat or drink after midnight. In the morning take your eliquis, metoprolol, losartan and digoxin. Do not take the furosemide the morning of. You will need a dray truck driver that day. Orders Orders: 12 Lead EKG performed by [facility] Today 3. Cardiomyopathy in disease classified elsewhere I43 Plan Patient currently does not have any symptoms of congestive heart failure. He does have a known ejection fraction of 40%. After his cardioversion would like to proceed with a stress test. If stress test is normal we will continue to maximize his medications. Would then like to repeat an echocardiogram 3 months post cardioversion. Plan Detail Other Medications Refilled: apixaban 5 mg PO BID 60 tabs 11RF digoxin 125 mcg PO DAILY 30 tabs 11RF furosemide 40 mg PO DAILY 30 tabs 11RF metoprolol tartrate 100 mg PO BID 60 tabs 11RF Goals Decrease pain Decrease spasm Improve ROM Decrease HAs Follow Up 01/28/20 (will need one week f/u EKG from cardioversion) 3 Months (MMM/CHIEF ESTIMATOR) Coding Level of Care Code Off vis,est,level 4 Diagnoses Benign essential hypertension I10 Atrial flutter I48.92 Cardiomyopathy in disease classified elsewhere I43 Coding Level of Care Code Off vis,est,level 4 Diagnoses Benign essential hypertension I10 Atrial flutter I48.92 Cardiomyopathy in disease classified elsewhere I43 Supplemental Info Supplemental Information Echocardiogram 12/2019: The study was technically difficult. Contrast injection was performed. The estimated ejection fraction is 40 %. hypokinesis of the apex, anterior wall and septum Stage 1 diastolic dysfunction. Trivial mitral valve insufficiency. The study was technically difficult. Contrast injection was performed. Diagnostics Electrocardiogram 01/28/20 Echocardiogram 01/05/20 Chest X-Ray 01/05/20 01/28/20 1618 <Electronically signed by Elaina Arteaga> Date _ Elaina FRANKLIN
[2020-01-28 11:21] VITALS: BMI 34.8
[2020-01-31 08:40] VITALS: BMI 34.8
--- NOTE | 2020-02-01 12:03 | CARDIOVERS_ITS ---
Cardioversion Cardioversion: Procedure: Elective DC cardioversion. Indication: Atrial flutter symptomatic. 74-year-old man with a history of mild cardiomyopathy and symptomatic atrial flutter. The patient was brought in the postabsorptive nonsedated state. The patient was seen by Dr. Jacques of the critical care division. Anterior- posterior pads were applied. The patient's medications were ascertained. An intravenous line was established. The patient was then administered 14 mg of intravenous etomidate and 200 J of synchronized DC cardioversion were applied. The patient promptly reverted to sinus rhythm. Conclusion: Successful DC cardioversion to sinus rhythm Discontinue digoxin Reduce metoprolol to 50 mg twice a day. Follow-up in the office.
--- NOTE | 2020-02-01 14:02 | PCM.OP.PRO ---
Problem List (1) Atrial flutter Status: Acute (2) Cardiomyopathy in disease classified elsewhere Status: Acute (3) Acute cervical sprain Status: Chronic Qualifiers: (4) Benign essential hypertension Status: Chronic (5) Familial combined hyperlipidemia Status: Chronic (6) Segmental and somatic dysfunction of cervical region Status: Chronic (7) Segmental and somatic dysfunction of thoracic region Status: Chronic Procedure Report Date of Procedure: 02/01/20 - Conscious sedation CONSCIOUS SEDATION REPORT BRIEF HISTORY OF PRESENT ILLNESS: The patient is a 74-year-old male who presented to [facility] for an elective outpatient cardioversion due to underlying atrial fibrillation. The patient reports no PO intake since midnight. The patient does not have a history of obstructive sleep apnea. The patient reports a history of smoking, but denies COPD. The patient denies any recent constitutional symptoms such as fevers, chills, nausea or vomiting. The patient denies previous anesthetic complications. Patient's last known ejection fraction is 40%. PHYSICAL EXAMINATION: VITAL SIGNS: Reviewed and were acceptable. GENERAL: The patient is a male, in no apparent distress, speaking in full sentences. HEENT: Normocephalic, atraumatic. Mucous membranes are moist and pink. Good mouth opening noted. Trachea is midline. Good neck mobility. MP III CHEST: S1, S2 irregularly irregular. No murmurs, rubs or gallops were noted. LUNGS: Clear to auscultation bilaterally without appreciable wheezes, rales or rhonchi. ABDOMEN: Soft, nontender, nondistended. Positive bowel sounds. EXTREMITIES: There is no clubbing, cyanosis or edema. ASA Class: II DESCRIPTION OF PROCEDURE: After confirmation of informed consent, the patient's anesthesia plan was reviewed in detail. Etomidate was chosen. Risks and benefits were reviewed and the patient agreed to proceed. At 11:48 AM, the patient was given 4 mg of etomidate. The patient required a total of 14 mg of etomidate throughout the procedure to achieve appropriate sedation. The patient achieved an appropriate level of sedation and received 1 attempt synchronized cardioversion, at [address] Murphy at the bedside. This was successful in achieving normal sinus rhythm. The patient was monitored until 12:03 PM, at which time the patient reached their baseline mental status and function. The patient tolerated the procedure well. COMPLICATIONS: None ESTIMATED BLOOD LOSS: None RECOMMENDATIONS: Okay to recover in usual fashion. 9xxxx: Other Procedure See Report - [id number] - 15 min
== END 2020-02-01 13:05 | disposition home or self-care (01) ==
LOC: CLSP 10:24
PROVIDERS: PCP Family Medicine Geriatric Medicine; Referring Provider Internal Medicine Cardiovascular Disease; Visit Provider Internal Medicine Cardiovascular Disease
DX: I48.92 Unspecified atrial flutter (principal); I48.91 Unspecified atrial fibrillation; I43 Cardiomyopathy in diseases classified elsewhere; I10 Essential (primary) hypertension; E78.49 Other hyperlipidemia; M19.90 Unspecified osteoarthritis, unspecified site; E78.00 Pure hypercholesterolemia, unspecified; Z87.19 Personal history of other diseases of the digestive system; Z79.01 Long term (current) use of anticoagulants; Z79.899 Other long term (current) drug therapy; Z87.891 Personal history of nicotine dependence
CPT/HCPCS: 92960; 93005; J7040

== ENCOUNTER → 2020-02-22 14:32 | Outpatient (CLI) | payer MEDICARE, BC, SELFPAY ==
[2020-01-31 08:40] VITALS: BMI 34.8
[2020-02-22 15:10] LABS: Absolute Neutrophil Count 5.8 X10^3/uL (2.0-7.7); Basophil# 0.01 X10^3/uL; Basophil% 0.1 % (0-1); Eosinophil# 0.45 X10^3/uL; Eosinophils% 5.2 % (0-5); Hematocrit 42.5 % (40-54); Hemoglobin 13.8 g/dL (13.0-16.5); Lymphocyte % 19.6 % (19-41); Mean Corp Hgb Conc 32.5 g/dL (32-36); Mean Corpuscular Hgb 32.3 pg (27.0-32.0); Mean Corpuscular Volume 99.5 fL (80-94); Mean Platelet Vol. 12.9 fl (6.2-12.0); Monocyte# 0.67 X10^3/uL; Monocyte% 7.7 % (0-10); NRBC Flagged by Analyzer 0 % (0-5); Neutrophil # 5.81 X10^3/uL (2.7-7.7); Neutrophil % 67.1 % (47-70); Platelet Count 192 K/mm3 (150-450); RBC Distribution Width CV 13.2 % (11.6-14.6); Red Blood Count 4.27 M/mm3 (4.6-6.2); White Blood Count 8.7 K/mm3 (4.4-11.0)
[2020-02-22 16:00] LABS: AST(SGOT) 12 U/L (15-37); Alanine Aminotransfer ALT/SGPT 23 U/L (16-61); Albumin, Serum 3.8 g/dL (3.2-5.0); Alkaline Phosphatase 104 U/L (45-117); Anion Gap 8 (5-15); BUN 23 mg/dL (7-18); BUN/Creat Ratio 26.5 RATIO (10-20); Calcium,Total 9.3 mg/dL (8.5-10.1); Chloride 105 mmol/L (98-107); Creatinine, Serum 0.87 mg/dL (0.70-1.30); EST Glomerular Filtration Rate 91 mL/min (>60); Est Glom Filt Rate - Afr Amer 110 mL/min (>60); Glucose 123 mg/dL (74-106); Potassium 3.6 mmol/L (3.5-5.1); Protein, Total 7.8 g/dL (6.4-8.2); Sodium Level 140 mmol/L (136-145); Thyroid Stim Hormone (TSH) 1.58 uIU/mL (0.358-3.74); Uric Acid 5.3 mg/dL (3.5-7.2)
[2020-02-23 08:29] LABS: Vitamin D,25 Hydroxy 58.3 ng/mL
== END ==
PROVIDERS: PCP Family Medicine Geriatric Medicine; Visit Provider Family Medicine Geriatric Medicine
DX: E55.9 Vitamin D deficiency, unspecified (principal); I10 Essential (primary) hypertension; M10.9 Gout, unspecified
CPT/HCPCS: 36415; 80053; 82306; 84443; 84550; 85025

== ENCOUNTER 2020-03-27 09:29 | Day surgery (SDC) | payer MEDICARE, BC, SELFPAY ==
[2020-03-22 09:11] VITALS: BMI 34.7
[2020-03-24 08:09] VITALS: BMI 34.7
--- NOTE | 2020-03-27 06:31 | HP_ITS ---
HPI HPI History of Present Illness Surgical H&P: Yes Details: This is a 74-year-old gentleman that presents here today for a cardiovascular follow-up. Patient was admitted to [facility] on January 05, 2020 where he was noted to be in 2-1 atrial flutter. Patient was started on an anticoagulant and rate limiting medications. During his evaluation it was noted that his ejection fraction was 40%. There was question if this could be related to his atrial flutter. Stress test was not done during his hospital stay it was felt it could be done on an outpatient basis. Pt underwent a cardioversion on 02/01/2020, unfortunately he did not maintain SR. Amiodarone was added. He is here today to discuss a second cardioversion. Unfortunately he remains in Atrial flutter since starting amiodarone. He still notes that he is fatigued. He does not feel as SOB. He sts that his HR has been variable at home from the 40-120's. He does not have any chest pain. He does not have any chest pressure/heaviness/tightness. He does not have any orthopnea. He does not have any edema. He does not feel his atrial flutter. Intake Vital Signs 03/22/20 Height 5 ft 8 in 03/22/20 Weight: 228 lb 03/22/20 BMI 34.7 03/22/20 BP 116/75 03/22/20 Blood Pressure Location Lt brachial 03/22/20 Position Sitting 03/22/20 Respiration 18 03/22/20 Pulse 59 L 03/22/20 Pulse Source Monitor 03/22/20 Pulse Oximetry (%) 94 Intake Visit Reasons: EKG FOR POSSIBLE CV Splitting Machine Operator Required: No Is patient in pain?: No Allergies Sulfa (Sulfonamide Antibiotics) Allergy (Intermediate, Verified 03/22/20 09:06) Hives Medications losartan 50 mg tablet 50 mg PO DAILY 03/02/18 [History Confirmed 03/22/20] pravastatin 40 mg tablet 40 mg PO DAILY 03/02/18 [History Confirmed 03/22/20] Tamsulosin HCl [Flomax] 0.4 mg PO DAILY 03/05/18 [History Confirmed 03/22/20] Allopurinol [Zyloprim] 300 mg PO DAILY 01/05/20 [History Confirmed 03/22/20] Cholecalciferol (Vitamin D3) [Vitamin D3] 5,000 unit PO DAILY 01/05/20 [History Confirmed 03/22/20] apixaban 5 mg tablet 5 mg PO BID #60 tab 01/28/20 [Rx Confirmed 03/22/20] furosemide 40 mg tablet 40 mg PO DAILY #30 tab 01/28/20 [Rx Confirmed 03/22/20] metoprolol tartrate 100 mg tablet 50 mg PO BID #60 tab 02/11/20 [Rx Confirmed 03/22/20] amiodarone 200 mg tablet 200 mg PO DAILY 03/22/20 [History Confirmed 03/22/20] [facility] Medical History Cardiomyopathy in disease classified elsewhere (Chronic) Atrial flutter (Chronic) Familial combined hyperlipidemia (Chronic) Benign essential hypertension (Chronic) Arthritis (Chronic) Gallstones (Chronic) Osteoarthritis (Chronic) Surgical History History of cardioversion (Resolved 02/01/20) History of cataract surgery (Resolved) History of colectomy (Resolved) History of knee surgery (Resolved) History of laparoscopic cholecystectomy (Resolved) history bilateral cataract surgery (Resolved) Family History Son Asthma Social History (Updated 03/22/20 @ 12:54 by Elaina FRANKLIN, PA) Smoking Status: Former smoker alcohol intake: current alcohol intake frequency: a few times a week substance use type: does not use ROS Const Const: Positive for fatigue; negative for weakness, fever(s) or headache(s) Eyes Eyes: Negative for blind spots, loss of peripheral vision or transient loss of vision ENT ENT: Negative for headache(s), dizziness, tinnitus or Nosebleed/epistaxis Cardio Chest Pain: No Palpitations: No Edema: None Muscle aches with walking: None Resp Respiratory: Negative for SOB with activity, SOB at rest, SOB orthopnea\SOB lying down or Cough GI GI: Negative nausea, vomiting, heartburn or vomiting blood/hematemesis : Negative for hematuria Musc Musc: Negative for muscle aches/ myalgia Neuro Neuro: Negative for dizziness, lightheadedness, near syncope, syncope, orthostatic symptoms, headache(s) or weakness Prosper Hematologic/Lymphatic: Negative for easy bleeding Endo Endo: Positive for fatigue Cardiology Exam Const Appearance: cooperative, no acute distress and well developed Orientation: alert, awake and oriented x3 Head Head: normocephalic and atraumatic Mouth: moist mucous membranes Eyes General: appearance normal, both eyes and all related structures Conjunctivae: conjunctivae normal Pupils: PERRL EOM: EOM intact bilaterally Neck Neck: normal visual inspection, no lymphadenopathy and no JVD Carotids: Negative bruit Neck Mass: Negative Neck mass Chest Chest inspection: normal inspection of the chest and symmetric chest movement Auscultation: Bilateral: Clear to Auscultation Cardio Palpation: normal PMI Rate: regular rate Rhythm: irregularly irregular Heart sounds: S1 normal and S2 normal; negative rub, gallop or murmur GI GI: normal to inspection, soft, no hepatosplenomegaly and bowel sounds present; negative tender Neuro General: alert, awake, oriented x3, CN's II-XI intact bilaterally and moves all extremities Extremities Pulses: Normal: Right Posterior Tibial Pulse, Left Posterior Tibial Pulse, Right Radial Pulse, Left Radial Pulse Lower Extremity Edema: None: Bilateral Psych Psychological: normal affect Assessment & Plan 1. Atrial flutter I48.92 Plan Patient did not cardiovert. He is still in atrial flutter with a heart rate of 60. Would like to proceed with a second cardioversion on his amiodarone. He will be called with a new date and time. His medications have not been interrupted. If he does not maintain sinus rhythm may need to consider an EP consultation. Patient Instructions I will call with your date and time of the cardioversion. The day of the cardioversion: nothing to eat or drink after midnight. In the morning take your eliquis, metoprolol, losartan and ametoprolol. Do not take the furosemide the morning of. You will need a sales route driver helper that day. Orders Orders: 12 Lead EKG performed by [facility] Today 2. Cardiomyopathy in disease classified elsewhere I43 Plan Patient currently does not have any symptoms of congestive heart failure. He does have a known ejection fraction of 40%. After his cardioversion would like to proceed with a stress test. If stress test is normal we will continue to maximize his medications. Would then like to repeat an echocardiogram 3 months post cardioversion. 3. Benign essential hypertension I10 Plan Blood pressure is well controlled on current medications, we do not recommend any changes at this time. Plan Detail Goals Decrease pain Decrease spasm Improve ROM Decrease HAs Follow Up 03/22/20 (keep as is) 03/22/20 (in process of scheduling a cardioversion) Coding Level of Care Code Off vis,est,level 3 Diagnoses Atrial flutter I48.92 Cardiomyopathy in disease classified elsewhere I43 Benign essential hypertension I10 Coding Level of Care Code Off vis,est,level 3 Diagnoses Atrial flutter I48.92 Cardiomyopathy in disease classified elsewhere I43 Benign essential hypertension I10 Supplemental Info Supplemental Information Echocardiogram 12/2019: The study was technically difficult. Contrast injection was performed. The estimated ejection fraction is 40 %. hypokinesis of the apex, anterior wall and septum Stage 1 diastolic dysfunction. Trivial mitral valve insufficiency. The study was technically difficult. Contrast injection was performed. Diagnostics Electrocardiogram 03/22/20 COVID (Procedure Consent) Procedure Criteria Procedure Criteria: Yes Elective The surgeon/proceduralist and patient have discussed in detail the risk of exposure to and/or potential harm posed by the COVID-19 virus with having a surgery/procedure at this time versus the risk of? delaying the surgery/procedure. It is not possible to know either the risk of delaying the surgery or procedure or chance of getting an infection with perfect accuracy, but a joint decision was made between the patient and the surgeon/proceduralist ?to proceed at this time with the scheduled surgery/procedure as indicated on the consent form.
--- NOTE | 2020-03-27 12:21 | CARDIOVERS ---
Cardioversion Cardioversion: DC cardioversion. 74-year-old male with a history of atrial flutter on anticoagulation and amiodarone. Patient here for elective DC cardioversion. After informed consent was obtained with the patient in the cardiac catheterization suite the patient was seen by Dr. Jacques of the critical care division. Informed consent was obtained. Anterior posterior pads were applied. The patient was administered 12 mg of intravenous etomidate. 200 J of synchronized DC cardioversion energy were applied with prompt reversal to sinus rhythm. Patient tolerated the procedure well no apparent complications were noted. Conclusion: Successful DC cardioversion from atrial flutter to sinus rhythm. Continue amiodarone Continue anticoagulation. If patient fails this attempt may consider atrial flutter ablation.
--- NOTE | 2020-03-27 18:10 | PRO.PCM_ITS ---
Problem List (1) Atrial flutter Status: Chronic (2) Benign essential hypertension Status: Chronic (3) Cardiomyopathy in disease classified elsewhere Status: Chronic (4) Familial combined hyperlipidemia Status: Chronic (5) Segmental and somatic dysfunction of cervical region Status: Chronic (6) Segmental and somatic dysfunction of thoracic region Status: Chronic Procedure Report Date of Procedure: 03/27/20 - Conscious sedation CONSCIOUS SEDATION REPORT BRIEF HISTORY OF PRESENT ILLNESS: The patient is a 74-year-old male who presented to [facility] for an elective outpatient cardioversion due to underlying atrial fibrillation. The patient reports no PO intake since midnight. The patient does not have a history of obstructive sleep apnea. The patient reports a history of smoking but denies COPD. The patient denies any recent constitutional symptoms such as fevers, chills, nausea or vomiting. The patient denies previous anesthetic complications. Patient's last known ejection fraction was 40%. Patient did report taking Eliquis on the day of the presentation for this procedure. PHYSICAL EXAMINATION: VITAL SIGNS: Reviewed and were acceptable. GENERAL: The patient is a male, in no apparent distress, speaking in full sentences. HEENT: Normocephalic, atraumatic. Mucous membranes are moist and pink. Good mouth opening noted. Trachea is midline. Good neck mobility. MP III CHEST: S1, S2 irregularly irregular. No murmurs, rubs or gallops were noted. LUNGS: Clear to auscultation bilaterally without appreciable wheezes, rales or rhonchi. ABDOMEN: Soft, nontender, nondistended. Positive bowel sounds. EXTREMITIES: There is no clubbing, cyanosis or edema. ASA Class: II DESCRIPTION OF PROCEDURE: After confirmation of informed consent, the patient's anesthesia plan was reviewed in detail. Etomidate was chosen. Risks and benefits were reviewed and the patient agreed to proceed. At 12:15 PM, the patient was given 4 mg of etomidate. The patient required a total of 12 mg of etomidate throughout the procedure to achieve appropriate sedation. The patient achieved an appropriate level of sedation and received 1 attempt synchronized cardioversion, at [address] Murphy at the bedside. This was successful in achieving normal sinus rhythm. The patient was monitored until 12:27 PM, at which time the patient reached their baseline mental status and function. The patient tolerated the procedure well. COMPLICATIONS: None ESTIMATED BLOOD LOSS: None RECOMMENDATIONS: Okay to recover in usual fashion. 9xxxx: Other Procedure See Report - [id number]
== END 2020-03-27 13:20 | disposition home or self-care (01) ==
LOC: CLSP 09:29
PROVIDERS: PCP Family Medicine Geriatric Medicine; Referring Provider Internal Medicine Cardiovascular Disease; Visit Provider Internal Medicine Cardiovascular Disease
DX: I48.91 Unspecified atrial fibrillation (principal); I48.92 Unspecified atrial flutter; I10 Essential (primary) hypertension; I43 Cardiomyopathy in diseases classified elsewhere; E78.49 Other hyperlipidemia; M19.90 Unspecified osteoarthritis, unspecified site; Z87.19 Personal history of other diseases of the digestive system; Z79.01 Long term (current) use of anticoagulants; Z79.899 Other long term (current) drug therapy; Z87.891 Personal history of nicotine dependence
CPT/HCPCS: 92960; 93005; J7040

== ENCOUNTER → 2020-04-07 17:38 | Outpatient (CLI) | payer MEDICARE, BC, SELFPAY | PROVIDERS: PCP Family Medicine Geriatric Medicine; Referring Provider Family Medicine Geriatric Medicine; Visit Provider Family Medicine Geriatric Medicine | DX: R06.89 Other abnormalities of breathing (principal) | CPT/HCPCS: 87633; 87635; C9803; U0003 ==

== ENCOUNTER → 2020-04-24 06:34 | Outpatient (CLI) | payer MEDICARE, BC, SELFPAY ==
[2020-04-21 09:23] VITALS: BMI 34.7
--- NOTE | 2020-04-24 09:51 | STRESSREP ---
Stress Test Report Pharmacologic myocardial perfusion stress test. 74-year-old man with a history of chest pain. Medications: Losartan, pravastatin, Zyloprim. Stress protocol: Resting EKG demonstrates atrial fibrillation flutter with a rate of 67 bpm intermittent left bundle branch block is noted. Resting blood pressure is 162/94 mmHg. 0.4 mg of regadenoson was infused per usual protocol followed by rapid intravenous saline flush injection continuous EKG monitoring was performed. The patient maintained atrial fibrillation throughout the recording the maximum heart rate was 83 bpm which was 57% of max impacted heart rate the maximum workload was 1 metabolic equivalent. At rest there were no ST or T wave changes noted to suggest abnormal flow reserve at peak infusion nonspecific ST changes were noted with no meet the criteria for ischemia. Myocardial perfusion protocol. 11.5 mCi of technetium 99m sestamibi was injected at rest. 0.4 mg of regadenoson was infused per usual protocol peak infusion 34.7 mCi of technetium 99m sestamibi was injected stress images were obtained stress and rest images were reconstructed and compared in the short axis vertical long horizontal long axis. Gated images were also obtained for Perfusion SPECT analysis: Review of the stress images demonstrate mild reduction of perfusion in the anterior wall towards the apex. The septum and lateral wall and inferior wall appeared to be normally perfused. The resting images demonstrate a similar patent. No obvious ischemia is noted anterior attenuation is suggested. Conclusion: Pharmacologic myocardial perfusion stress test with no evidence of ischemia. Anterior attenuation suggestive of possible previous infarct cannot be excluded.
== END ==
PROVIDERS: PCP Family Medicine Geriatric Medicine; Referring Provider Internal Medicine Cardiovascular Disease; Visit Provider Internal Medicine Cardiovascular Disease
DX: I25.10 Atherosclerotic heart disease of native coronary artery without angina pectoris (principal); I48.92 Unspecified atrial flutter
CPT/HCPCS: 78452; 93017; A9500; A4216; J2785

== ENCOUNTER → 2020-05-22 13:53 | Outpatient (CLI) | payer MEDICARE, BC, SELFPAY ==
[2020-04-21 09:23] VITALS: BMI 34.7
[2020-05-22 16:40] LABS: Absolute Lymphocyte Count 2.05 X10^3/uL (0.83-4.51); Absolute Neutrophil Count 8.2 X10^3/uL (2.0-7.7); Basophil# 0.04 X10^3/uL; Basophil% 0.3 % (0-1); Eosinophil# 0.33 X10^3/uL; Eosinophils% 2.8 % (0-5); Hematocrit 41.4 % (40-54); Lymphocyte # 2.05 X10^3/ul (4.0); Lymphocyte % 17.7 % (19-41); Mean Corp Hgb Conc 33.8 g/dL (32-36); Mean Corpuscular Hgb 34.6 pg (27.0-32.0); Mean Corpuscular Volume 102.2 fL (80-94); Mean Platelet Vol. 12.8 fl (6.2-12.0); Monocyte# 0.96 X10^3/uL; Monocyte% 8.3 % (0-10); NRBC Flagged by Analyzer 0 % (0-5); Neutrophil # 8.17 X10^3/uL (2.7-7.7); Neutrophil % 70.4 % (47-70); Platelet Count 184 K/mm3 (150-450); RBC Distribution Width CV 14.6 % (11.6-14.6); RBC Distribution Width SD 54.1 fl (35.1-43.9); Red Blood Count 4.05 M/mm3 (4.6-6.2); White Blood Count 11.6 K/mm3 (4.4-11.0)
[2020-05-22 16:56] LABS: Vitamin D,25 Hydroxy 52.8 ng/mL
[2020-05-22 17:07] LABS: ALB/GLOB Ratio 1.1 RATIO (0.9-2.4); AST(SGOT) 12 U/L (15-37); Alanine Aminotransfer ALT/SGPT 29 U/L (16-61); Alkaline Phosphatase 102 U/L (45-117); Anion Gap 6 (5-15); BUN 27 mg/dL (7-18); BUN/Creat Ratio 28.9 RATIO (10-20); Calcium,Total 9.2 mg/dL (8.5-10.1); Chloride 102 mmol/L (98-107); Creatinine, Serum 0.93 mg/dL (0.70-1.30); EST Glomerular Filtration Rate 84 mL/min (>60); Est Glom Filt Rate - Afr Amer 101 mL/min (>60); Globulin 3.8 g/dL (2.2-4.2); Glucose 96 mg/dL (74-106); Potassium 3.7 mmol/L (3.5-5.1); Protein, Total 7.8 g/dL (6.4-8.2); Sodium Level 139 mmol/L (136-145); Thyroid Stim Hormone (TSH) 1.39 uIU/mL (0.358-3.74); Uric Acid 5.1 mg/dL (3.5-7.2)
== END ==
PROVIDERS: PCP Family Medicine Geriatric Medicine; Visit Provider Family Medicine Geriatric Medicine
DX: E78.5 Hyperlipidemia, unspecified (principal); E55.9 Vitamin D deficiency, unspecified; M10.9 Gout, unspecified
CPT/HCPCS: 36415; 80053; 82306; 84443; 84550; 85025

== ENCOUNTER 2020-06-02 14:09 | Observation (INO) | payer MEDICARE, BC, SELFPAY ==
[2020-06-02] VITALS (10 sets, daily range): BP systolic 138–166; BP diastolic 85–119; PULSE 64–125; RESP 15–18; TEMP 36–36.8; O2SAT 95–97; BMI 34.7; BMI 34.6
--- NOTE | 2020-06-02 14:23 | EKG12_ITS ---
Test Reason : CP Blood Pressure : / mmHG Vent. Rate : 072 BPM Atrial Rate : 249 BPM P-R Int : 000 ms QRS Dur : 162 ms QT Int : 448 ms P-R-T Axes : -50 -25 104 degrees QTc Int : 490 ms Atrial flutter with variable A-V block Left bundle branch block Abnormal ECG Confirmed by VILLA JULIEN, ES ([id number]), digital editor CORNEL CASTILLO ([id number]) on 06/07/2020 6:37:42 AM Referred By: BAHMAN/ERIBERTO Confirmed By:ES DRIVER MD
[2020-06-02 14:46] LABS: Absolute Lymphocyte Count 2.26 X10^3/uL (0.83-4.51); Absolute Neutrophil Count 7.6 X10^3/uL (2.0-7.7); Basophil# 0.04 X10^3/uL; Basophil% 0.4 % (0-1); Eosinophils% 3.6 % (0-5); Hematocrit 42.2 % (40-54); Lymphocyte # 2.26 X10^3/ul (4.0); Lymphocyte % 20.1 % (19-41); Mean Corp Hgb Conc 33.2 g/dL (32-36); Mean Corpuscular Volume 99.5 fL (80-94); Mean Platelet Vol. 12.9 fl (6.2-12.0); Monocyte# 0.91 X10^3/uL; Monocyte% 8.1 % (0-10); NRBC Flagged by Analyzer 0 % (0-5); Neutrophil # 7.58 X10^3/uL (2.7-7.7); Neutrophil % 67.4 % (47-70); Platelet Count 195 K/mm3 (150-450); RBC Distribution Width CV 13.9 % (11.6-14.6); RBC Distribution Width SD 50.9 fl (35.1-43.9); Red Blood Count 4.24 M/mm3 (4.6-6.2); White Blood Count 11.2 K/mm3 (4.4-11.0)
[2020-06-02 14:57] LABS: D-Dimer Quantitative (DVT/PE) 0.35 FEU/ug/m (0.27-0.49)
--- NOTE | 2020-06-02 15:00 | RAD_ITS ---
STUDY: X-RAY CHEST REASON FOR EXAM: Male, 74 years old. Chest pain TECHNIQUE: Single AP portable view of the chest. COMPARISON: Comparison is made with prior examination dated 01/05/2020. FINDINGS: EKG electrodes are seen. Mild elevation of the right hemidiaphragm. The lungs are clear. There is no demonstrated pleural abnormality. Normal size heart. Normal mediastinum and preethi. Normal visualized pulmonary arteries. There is atherosclerotic calcification of the aortic arch with tortuosity. Normal visualized thoracic spine. Normal visualized ribs, clavicles, and shoulders. There is no demonstrated abnormality of the visualized soft tissue structures of the upper abdomen. RAD/Chest 1 View (Portable) IMPRESSION: Normal x-ray examination of the chest. Electronically Signed: Van Pat, at 15:12 EST , Service support ,
[2020-06-02 15:08] LABS: Anion Gap 6 (5-15); BUN 19 mg/dL (7-18); Calcium,Total 9.7 mg/dL (8.5-10.1); Chloride 106 mmol/L (98-107); Creatinine, Serum 0.86 mg/dL (0.70-1.30); EST Glomerular Filtration Rate 92 mL/min (>60); Est Glom Filt Rate - Afr Amer 111 mL/min (>60); Glucose 100 mg/dL (74-106); Potassium 3.8 mmol/L (3.5-5.1); Sodium Level 140 mmol/L (136-145)
[2020-06-02] MEDS: 0.9% Normal Saline 1,000 ML 150 ML IV (15:16)
--- NOTE | 2020-06-02 16:17 | ED.VISSUMM ---
- ER Visit Summary Date of Service: 06/02/20 Chief Complaint: [Chest pain] History of Present Illness: The patient is a 74 M [presents to the emergency department complaint of chest discomfort that he suffered 3 weeks off and on. Patient initially states the pain was in his shoulder and thought it was muscular. Patient also felt discomfort into his armpit. Over last 3 weeks the pain seems to have gotten worse and is now located more over the left side of his chest and describes it as a squeezing or tightness. He denies any nausea or vomiting with it. He denies diaphoresis or shortness of breath. Pain is not necessarily exertional and states that it can last a minute or 2. Patient had a stress test in April that was unremarkable other than he may have showed possible old inferior infarct. Patient also had recent cardioversion for history of A. fib and is scheduled to have an ablation. Patient denies recent travel or surgery. He has no history of PE or DVT. He has no coronary artery disease history. He does have history of high cholesterol, hypertension, A. fib, and history of diverticulosis.] Physical Examination: [HEENT-PERRLA, EOMI. Cranial nerves II through XII grossly intact. TMs clear. Mucous membranes moist. No adenopathy. Cardiovascular-irregularly irregular. No murmurs auscultated. Lungs-clear to auscultation, chest wall stable without crepitus or subcu emphysema Abdomen-normoactive bowel sounds, soft, nontender, no rebound or rigidity, no peritoneal signs. Extremities-intact ?4, normal range of motion, normal pulses, atraumatic] Test Results: [EKG obtained arrival showed atrial flutter with left bundle branch block with a ventricular rate of 72 bpm. CBC with differential showed a white count of 11.2, hemoglobin 14, hematocrit 42, plates 195. Chemistries unremarkable. Troponin less than 0.015. D-dimer was 0.35. Chest x-ray 1 view interpreted by myself as nothing acute. Radiology read x-ray as normal.] Emergency Department Course and Treatment: [The line established on arrival. Patient placed on patient monitor. Case was discussed with cardiology Dr. Sarmad Ag who asked that I discussed options with patient to admit to hold his Eliquis and heart catheterization or we could perform a delta troponin have patient follow-up as an outpatient given that the pain sounds somewhat atypical and these had a recent negative stress test. Patient is concerned with not knowing the etiology of his pain and certainly has risk factors for coronary artery disease. He would prefer to remain in the hospital and have his heart catheterization performed.] Treatment Plan: [Admit] Disposition: [Admit] Impression: [Chest pain-etiology uncertain-rule out acute coronary syndrome] This note was generated with [employer] dictation software. It may contain incorrect words, spelling, and punctuation that were not noted in review of the chart prior to signing ED Disposition - Plan for ED Patient: Referrals: Vinod Kirby Chi, MD [Primary Care Provider] -
--- NOTE | 2020-06-02 16:25 | HP.PCM_ITS ---
Problem List (1) Chest pain Status: Acute Qualifiers: Chest pain type: unspecified Qualified Code(s): R07.9 - Chest pain, unspecified (2) BPH (benign prostatic hyperplasia) Status: Chronic Qualifiers: Lower urinary tract symptom presence: unspecified whether lower urinary tract symptoms present Qualified Code(s): N40.0 - Benign prostatic hyperplasia without lower urinary tract symptoms (3) Atrial flutter Status: Chronic Qualifiers: Atrial flutter type: unspecified Qualified Code(s): I48.92 - Unspecified atrial flutter (4) Chronic systolic (congestive) heart failure Status: Chronic (5) Non-ischemic cardiomyopathy Status: Chronic (6) Benign essential hypertension Status: Chronic (7) Hyperlipidemia Status: Chronic Qualifiers: Hyperlipidemia type: unspecified Qualified Code(s): E78.5 - Hyperlipidemia, unspecified History of Present Illness Date of Admission: 06/02/20 Chief Complaint: Chest pain The patient is a 74 y/o M w/ PMHx: Chronic atrial fibrillation with last cardioversion ~ 1 month ago scheduled to have ablation at [facility], Chronic Systolic CHF/Non-ischemic cardiomyopathy, HTN, HLD, Former tobacco use who presents to the [facility] ED on 06/02/20 with history of ongoing intermittent atypical chest pain over the last 2-3 weeks, notes initially it was only 1 x week and notes it was initially in his left axilla region and left shoulder however it has been since more frequent and now into his left chest, last seconds with no associated dyspnea, diaphoresis, nausea, described as a pressure-like sensation, 5-6 out of 10 in severity at its worse prompting eventual ED presentation. Patient had recent stress test 04/2020 that was unremarkable at that time. Work-up in the ED included T 96.8, heart rate 64, BP 159/85, respiratory rate 18, 96% on room air, CBC with WC 11.2, hemoglobin 14, platelet 195 without shift, D-dimer 0.35, BMP unremarkable, troponin less than 0.015, chest x-ray with no acute cardiopulmonary findings, EKG with atrial flutter with left bundle branch block. Past Medical History Past Medical History (Chronic Problems): Chronic Problems (Last Reviewed 05/31/20 @ 11:42 by Sarahi Bell) BPH (benign prostatic hyperplasia) (Chronic) Atrial flutter (Chronic) Chronic systolic (congestive) heart failure (Chronic) Non-ischemic cardiomyopathy (Chronic) Benign essential hypertension (Chronic) Hyperlipidemia (Chronic) Medical History: Medical History (Last Reviewed 05/31/20 @ 11:42 by Sarahi Bell) Atrial flutter (Chronic) I48.92 Chronic systolic (congestive) heart failure (Chronic) I50.22 Non-ischemic cardiomyopathy (Chronic) I42.8 Benign essential hypertension (Chronic) I10 Hyperlipidemia (Chronic) E78.5 Acute cervical sprain S13.9XXA Arthritis M19.90 Gallstones K80.20 Obesity E66.9 Osteoarthritis M19.90 Segmental and somatic dysfunction of cervical region M99.01 Segmental and somatic dysfunction of thoracic region M99.02 Allergies Sulfa (Sulfonamide Antibiotics) Allergy (Intermediate, Verified 06/02/20 14:12) Hives Home Medications: Ambulatory Orders Medication Instructions Recorded losartan 50 mg tablet 50 mg PO DAILY 03/02/18 pravastatin 40 mg tablet 40 mg PO DAILY 03/02/18 Tamsulosin HCl [Flomax] 0.4 mg PO DAILY 03/05/18 Allopurinol [Zyloprim] 300 mg PO DAILY 01/05/20 Cholecalciferol (Vitamin D3) 5,000 unit PO DAILY 01/05/20 [Vitamin D3] apixaban 5 mg tablet 5 mg PO BID #60 tab 01/28/20 furosemide 40 mg tablet 40 mg PO DAILY #30 tab 01/28/20 metoprolol tartrate 50 mg tablet 50 mg PO BID #180 tab 04/25/20 Amiodarone HCl [Cordarone] 200 mg PO DAILY 06/02/20 Hydrochlorothiazide 12.5 mg PO DAILY 06/02/20 metroNIDAZOLE 0.75% [Metrogel] 1 applic TOPICAL BID 06/02/20 Surgical History: Surgical History (Last Reviewed 05/31/20 @ 11:42 by Sarahi Bell) History of cardioversion Onset Date: 03/27/20 Z98.890 02/01/2020 History of cataract surgery Z98.49 History of colectomy Z90.49 History of knee surgery Z98.890 History of laparoscopic cholecystectomy Z90.49 Surgical History: - - History of prior cardioversion, cataract surgery, cholecystectomy, history of prior partial colectomy, knee surgery. Psychiatric History: No pertinent psych hx Lives: Spouse/ Significant Other - Patient was with his . Smoking Status: Former smoker - Patient quit cigarette tobacco usage proximally 25 years prior with prior to this approximately up to 1 pack/day since he been a teenager. Tobacco Use: Non-smoker Alcohol: None Drugs: None - *Family History Maternal Family History: Family History (Last Reviewed 05/31/20 @ 11:42 by Sarahi Bell) Son Asthma History Items: High Cholesterol, Hypertension, Stroke Paternal Family History: Family History (Last Reviewed 05/31/20 @ 11:42 by Sarahi Bell) Son Asthma History Items: - - in World War [place] with no specific medical history noted prior to this including heart disease, diabetes, cancer. Review of Systems Constitutional: Reports: Fatigue. Denies: Anorexia, Chills, Fever, Malaise, Weakness, Weight Change HEENT: Denies: Head Aches, Sinus Congestion, Sinus Drainage Cardiovascular: Reports: Chest Pain, Chest Pressure. Denies: Chest Tightness, Light Headedness, Orthopnea, Palpitations, Syncope Respiratory: Denies: Cough, Shortness of breath at rest, Sputum production Gastrointestinal: Denies: Abdominal Pain, Nausea, Vomiting Genitourinary: Denies: Dysuria Musculoskeletal: Reports: Arm Pain, Back Pain, Joint Pain, Shoulder Pain. Denies: Joint Tenderness Skin: Denies: Rash, Wounds Neurological: Denies: Numbness, Tingling, Focal weakness Psychiatric: Denies: Anxiety, Depression, Homicidal Ideations, Suicidal Ideations Hematologic/ Lymphatic: Reports: Easy Bruising, Easy Bleeding VTE Information - Inpt Only VTE Present on Admission: No VTE Mechan Device Prophylaxis: SCD's VTE Pharm Prophylaxis ordered?: No Reason prophylaxis not ordered:: Treatment Not Indicated - Holding patient Eliquis for planned catheterization. Subjective: Patient seated upright in the ED bed, denies any current discomfort at this time. Objective: Physical Examination: General: awake, alert, oriented x 3 and cooperative, seated upright in the ED bed, no acute distress, denies any current chest discomfort. Skin: normal color, turgor, no icterus, cyanosis. HEENT: AT/NC, EOMI, PERRLA, MMM, no carotid bruits or JVD noted. Lungs: Diminished breath sounds, greater bases, moderate effort, no rales, ronchi or wheezing. Heart: Irregular, currently rate controlled; no gallop, rub audible. Abdomen: soft, obese, NTTP, ND, normal BS, no HSM. Extremities: no cyanosis, clubbing, or edema. Neurological: patient awake, alert, oriented as noted; cognitive function intact; pupils equally reactive to light and accomodation; cranial nerves II-XII grossly normal, moving all 4 extremities, no focal deficits, strength preserved. Psychiatric: affect appears normal, no acute evidence of depressive or anxiety feelings. - Physical Exam Vitals/I&O's: Vital Signs Temp Pulse Resp BP Pulse Ox 96.8 F L 64 18 159/85 H 96 06/02/20 14:10 06/02/20 14:10 06/02/20 14:10 06/02/20 14:10 06/02/20 14:10 Oxygen Delivery Method Room Air Weight: 228 lb Body Mass Index (BMI) 34.7 Laboratory Results 06/02/20 14:30: WBC 11.2 H, RBC 4.24 L, Hgb 14.0, Hct 42.2, MCV 99.5 H, MCH 33.0 H, MCHC 33.2, RDW Std Deviation 50.9 H, RDW Coeff of Betsy 13.9, Plt Count 195, MPV 12.9 H, Immature Gran % (Auto) 0.400, Neut % (Auto) 67.4, Lymph % (Auto) 20.1, [place] % (Auto) 8.1, Eos % (Auto) 3.6, Baso % (Auto) 0.4, Absolute Neuts (auto) 7.6, Absolute Lymphs (auto) 2.26, Nucleated RBC % 0 06/02/20 14:30: D-Dimer Quant (PE/DVT) 0.35 06/02/20 14:30: Sodium 140, Potassium 3.8, Chloride 106, Carbon Dioxide 28.0, Anion Gap 6, BUN 19 H, Creatinine 0.86, Estim Creat Clear Calc 71.80, Est GFR (MDRD) Af Amer 111, Est GFR (MDRD) Non-Af 92, BUN/Creatinine Ratio 22.0 H, Glucose 100, Calcium 9.7, Troponin I < 0.015 Current Medications Sodium Chloride () 1,000 mls @ 150 mls/hr IV .Q6H40M ADRY Last Admin: 06/02/20 15:16 Dose: 150 mls/hr Documented by: Assessment/Plan All Active Problems (Last Reviewed 05/31/20 @ 11:42 by Sarahi Bell) Chest pain (Acute) Back pain (Acute) Thoracic neuritis (Acute) Segmental and somatic dysfunction of pelvic region (Acute) Segmental and somatic dysfunction of lumbar region (Acute) Segmental and somatic dysfunction of thoracic region (Acute) Anxiety and depression (Acute) Fatigue (Acute) Bleeding hemorrhoid (Acute) Atrial flutter with rapid ventricular response (Resolved) The patient is a 74 y/o M w/ PMHx: Chronic atrial fibrillation with last cardioversion ~ 1 month ago scheduled to have ablation at OSH, Chronic Systolic CHF/Non-ischemic cardiomyopathy, HTN, HLD, Former tobacco use who presents to the [facility] ED on 06/02/20 with ongoing atypical chest discomfort that has been progressing and more frequent over the last 3 weeks prompting ED evaluation. 1. Chest Pain: EKG in ED atrial flutter with left bundle branch block, CXR w/ no acute cardiopulmonary findings, initial trop normal x1. Will admit to PCU, place on a monitored bed to assure no acute myocardial infarction with serial cardiac enzymes and EKGs. Cardiology consulted and from discussions will plan to continue to hold apixaban regimen with planned cardiac catheterization Friday. FLP in AM. Magnesium level requested. ASA, NG, morphine. 2. Chronic systolic CHF, nonischemic cardiopathy: We will continue patient home metoprolol, losartan, Lasix, statin therapy, most recent echo noted 01/05/2020 with EF 40%, hypokinesis of the apex, anterior wall and septum, stage I diastolic dysfunction, trivial MVI. 3. Chronic atrial fibrillation/flutter: Prior cardioversions, scheduled for upcoming ablation at [facility], we will continue patient home amiodarone, metoprolol, holding patient apixaban for planned cardiac catheterization Friday. 4. Hypertension: Continue home regimen including Lasix, hydrochlorothiazide, losartan, metoprolol with hold parameters, PRN hydralazine. 5. Hyperlipidemia: Continue home statin regimen. AM FLP. 6. BPH: We will continue patient home Flomax regimen. 7. DVT prophylaxis: SCDs, holding apixaban as noted for planned cardiac catheterization Kelvin. 8. CODE status: Patient HCPNICOLETTE is his and living will is currently in place. Discussed CODE status at length including difference between FULL code, DNR-CCA and DNR-CC status. Following discussions about the differences in these status, requested Full Code status. Advanced Care Planning Face to Face Time: 16 minutes. OBSV E&M: [id number] Initial observation care L3 Procedures: [id number] Advncd Care Plan 30 Min
[2020-06-02 19:15] LABS: Magnesium 2.2 mg/dL (1.6-2.6)
--- NOTE | 2020-06-02 20:29 | NURSING ---
ADMISSION COMPLETED. PT DENIES C/O CHEST PAIN. ALERT X 3 WITH NO S/S OF RESP DISTRESS NOTED.
[2020-06-02] MEDS: Pravastatin 40 MG Tablet PO (20:38)
[2020-06-02] MEDS: Metoprolol Tartrate 50 MG Tablet PO (20:38)
[2020-06-03] VITALS (8 sets, daily range): BP systolic 104; BP diastolic 62; PULSE 62–88; RESP 15; TEMP 37.1; O2SAT 94–95
[2020-06-03 03:46] LABS: Absolute Lymphocyte Count 1.99 X10^3/uL (0.83-4.51); Absolute Neutrophil Count 5.9 X10^3/uL (2.0-7.7); Basophil# 0.02 X10^3/uL; Basophil% 0.2 % (0-1); Eosinophil# 0.42 X10^3/uL; Eosinophils% 4.5 % (0-5); Hematocrit 38.6 % (40-54); Hemoglobin 12.5 g/dL (13.0-16.5); Lymphocyte # 1.99 X10^3/ul (4.0); Lymphocyte % 21.5 % (19-41); Mean Corp Hgb Conc 32.4 g/dL (32-36); Mean Corpuscular Hgb 32.4 pg (27.0-32.0); Mean Platelet Vol. 13.2 fl (6.2-12.0); Monocyte# 0.93 X10^3/uL; NRBC Flagged by Analyzer 0 % (0-5); Neutrophil # 5.86 X10^3/uL (2.7-7.7); Neutrophil % 63.4 % (47-70); Platelet Count 160 K/mm3 (150-450); RBC Distribution Width CV 13.9 % (11.6-14.6); Red Blood Count 3.86 M/mm3 (4.6-6.2); White Blood Count 9.3 K/mm3 (4.4-11.0)
[2020-06-03 04:30] LABS: ALB/GLOB Ratio 1.1 RATIO (0.9-2.4); AST(SGOT) 12 U/L (15-37); Alanine Aminotransfer ALT/SGPT 23 U/L (16-61); Albumin, Serum 3.3 g/dL (3.2-5.0); Alkaline Phosphatase 85 U/L (45-117); Anion Gap 4 (5-15); BUN 18 mg/dL (7-18); BUN/Creat Ratio 24.1 RATIO (10-20); Calcium,Total 8.4 mg/dL (8.5-10.1); Chloride 106 mmol/L (98-107); Creatinine, Serum 0.75 mg/dL (0.70-1.30); EST Glomerular Filtration Rate 108 mL/min (>60); Est Glom Filt Rate - Afr Amer 131 mL/min (>60); Estimated Creatinine Clearance 61.75 ml/min; Globulin 3.1 g/dL (2.2-4.2); Glucose 91 mg/dL (74-106); Potassium 3.3 mmol/L (3.5-5.1); Protein, Total 6.4 g/dL (6.4-8.2); Sodium Level 139 mmol/L (136-145)
--- NOTE | 2020-06-03 05:55 | EKG12_ITS ---
Test Reason : AM EKG Blood Pressure : / mmHG Vent. Rate : 072 BPM Atrial Rate : 249 BPM P-R Int : 000 ms QRS Dur : 164 ms QT Int : 474 ms P-R-T Axes : 079 -39 084 degrees QTc Int : 519 ms Atrial flutter with variable A-V block Left axis deviation Left bundle branch block Abnormal ECG Confirmed by JIMMY JULIEN, KELSEY ([id number]), makeup editor MAGEN REYEZ ([id number]) on 06/09/2020 9:49:56 AM Referred By: DR VIDAL Confirmed By:KELSEY MARQUEZ MD
[2020-06-03] MEDS: Metoprolol Tartrate 50 MG Tablet PO (08:24)
[2020-06-03] MEDS: hydroCHLOROthiazide 12.5mg 12.5 MG PO (08:24)
[2020-06-03] MEDS: Losartan Potassium 50 MG Tablet PO (08:25)
[2020-06-03] MEDS: Tamsulosin HCl 0.4 MG Capsule PO (08:26)
[2020-06-03] MEDS: Furosemide 40 MG Tablet PO (08:26)
[2020-06-03] MEDS: Allopurinol 300 MG Tablet PO (08:27)
--- NOTE | 2020-06-03 08:33 | CT_ITS ---
STUDY: CTA CHEST REASON FOR EXAM: Male, 74 years old. CHEST PAIN WITH HISTORY OF A-FIB RADIATION DOSAGE (If Supplied By Facility): CTDIvol = ( 16.21 ) mGy, DLP = ( 569.33 ) mGycm TECHNIQUE: The examination was performed with the intravenous administration of IV 100mL Isovue-370. Post-processing of the angiographic images was performed, with multiplanar reformation and 3D reconstruction. Individualized dose optimization techniques were used for this CT. COMPARISON: 01/06/2020 FINDINGS: Normal enhancement of the main pulmonary artery and right and left pulmonary arteries. Normal enhancement of the bilateral peripheral pulmonary arteries. There is no demonstrated pulmonary embolism. Normal thoracic aorta and visualized great vessels. There is no demonstrated aortic dissection. Normal heart and pericardium. Normal mediastinum. Normal hilar regions. Normal visualized trachea and bronchi. The lungs are well expanded. Normal pulmonary parenchyma. Normal pleura. Normal chest wall structures. There are degenerative changes of thoracic spine. Normal visualized upper abdomen. CT/CTA Chest W/WO Contrast IMPRESSION: Normal CTA chest examination, without a demonstrated pulmonary embolism or arterial dissection. Electronically Signed: Fredy Peres MD at 9:48 EST Tel , Service support ,
--- NOTE | 2020-06-03 12:30 | DCINST_ITS ---
- Discharge Diagnoses Current Active Problems: Current Active and Chronic Problems (Last Reviewed 05/31/20 @ 11:42 by Sarahi Bell) BPH (benign prostatic hyperplasia) (Chronic) Chest pain (Acute) Atrial flutter (Chronic) Chronic systolic (congestive) heart failure (Chronic) Non-ischemic cardiomyopathy (Chronic) Benign essential hypertension (Chronic) Hyperlipidemia (Chronic) You will use the following diet at home:: No restrictions Your food should be the consistency of: Regular Your liquids should be the consistency of: Regular/Thin Discharge Activity: Return to Normal Activity Weight Bearing Status: Full weight bearing Allergies/Adverse Reactions: Allergies Sulfa (Sulfonamide Antibiotics) Allergy (Intermediate, Verified 06/02/20 14:12) Hives Medications to take at Discharge losartan 50 mg tablet 50 mg PO DAILY 03/02/18 pravastatin 40 mg tablet 40 mg PO DAILY 03/02/18 Tamsulosin HCl [Flomax] 0.4 mg PO DAILY 03/05/18 Allopurinol [Zyloprim] 300 mg PO DAILY 01/05/20 Cholecalciferol (Vitamin D3) [Vitamin D3] 5,000 unit PO DAILY 01/05/20 apixaban 5 mg tablet 5 mg PO BID #60 tab 01/28/20 furosemide 40 mg tablet 40 mg PO DAILY #30 tab 01/28/20 metoprolol tartrate 50 mg tablet 50 mg PO BID #180 tab 04/25/20 metroNIDAZOLE 0.75% [Metrogel Vaginal] 1 applic TOPICAL BID 06/02/20 Primary Care Physician: Vinod Kirby Chi, MD [Primary Care Provider] - Test Results: Test results from this visit will be discussed in further detail at your follow- up appointment, if applicable. Please Follow Up With: Sai Murphy MD When: call office next week to arrange for follow up and possible catheterization
--- NOTE | 2020-06-04 08:50 | DS.PCM_ITS ---
Discharge Date and Diagnosis - Problem List Patient Problems: Active and Suspected Problems (Last Reviewed 05/31/20 @ 11:42 by Sarahi Bell) Chest pain (Acute) Date of Admission: 06/02/20 Date of Discharge: 06/03/20 - Primary Discharge Diagnosis Acute Problems: Active Problems (Last Reviewed 05/31/20 @ 11:42 by Sarahi Bell) #1 musculoskeletal chest pain #2 chronic atrial flutter - Secondary Discharge Diagnosis Chronic Problems: Chronic Problems (Last Reviewed 05/31/20 @ 11:42 by Sarahi Bell) BPH (benign prostatic hyperplasia) (Chronic) Atrial flutter (Chronic) Chronic systolic (congestive) heart failure (Chronic) Non-ischemic cardiomyopathy (Chronic) Benign essential hypertension (Chronic) Hyperlipidemia (Chronic) Hospital Course and Treatment Operations: None Procedures: None Summary of Care Provided: The patient is a 74 year old M who was seen in the emergency room at [facility] with a chief complaint of intermittent precordial chest pain which had been intermittent over the last 2 to 3 weeks, he stated the chest pain lasted 30 seconds to 1 minute in duration, he did not complain of any radiation into his jaw or down his arm, he did complain of some left shoulder pain but it was hard to determine whether this was associated with the chest discomfort. Patient had a previous nuclear stress test performed in April 2020 and this was unremarkable. Patient has chronic atrial flutter and is due to be seen at [facility] for ablation. Work-up in the emergency room included an EKG which showed atrial flutter with a well-controlled rate, cardiac isoenzymes were negative, chest x-ray was unremarkable. Patient was placed into observation status on PCU and cardiac enzymes were cycled, they remained negative. I had a discussion with the patient on 06/03/2020 and gave him the option of staying in the hospital until 06/05/2020 and possibly undergoing a cardiac catheterization at that point-or being discharged home with follow-up as an outpatient with cardiology who he is active with. I recommended that he undergo a CT of the chest to rule out any intrathoracic pathology-this was performed and was negative for any abnormality. On 06/03/2020, patient was seen and examined: On examination he appeared in good health and spirits. Vital signs as documented. Skin warm and dry and without overt rashes. Neck without JVD, neck was supple, trachea midline, thyroid was normal. Lungs clear bilaterally, normal air movement was noted. Heart exam notable for irregular rhythm, normal sounds and absence of murmurs, rubs or gallops. Abdomen unremarkable and without evidence of organomegaly, masses, or abdominal aortic enlargement. Bowel sounds are present, abdomen is not distended. Extremities nonedematous, no cyanosis was noted, no clubbing was noted. Neuro: Cranial nerves II through XII are grossly intact, no focal motor deficits were noted, sensation to light touch and pinprick intact, motor exam 5/5 throughout. Psych: Patient is alert and oriented x3, he does not appear anxious or depressed, he does not appear agitated. On 06/03/2020, patient was discharged home in stable condition, he was instructed to follow-up with cardiology as an outpatient. He was instructed to return to the hospital if he had recurrence of chest pain. Patient Problems: Active and Suspected Problems (Last Reviewed 05/31/20 @ 11:42 by Sarahi Bell) Chest pain (Acute) - Physical Exam Vitals/I&O's: Vital Signs Temp Pulse Resp BP Pulse Ox 98.8 F 88 15 104/62 94 06/03/20 03:50 06/03/20 08:24 06/03/20 05:00 06/03/20 03:50 06/03/20 07:00 Oxygen Delivery Method Room Air Weight: 102.9 kg Body Mass Index (BMI) 34.6 Intake and Output for Last 24 Hours 06/02/20 06/03/20 06/04/20 23:59 23:59 23:59 Intake Total 787.5 / 787.5 700 / 700 Balance 787.5 / 787.5 700 / 700 Discharge Activity: Return to Normal Activity Weight Bearing Status: Full weight bearing Home Medications: Medications to take at Discharge losartan 50 mg tablet 50 mg PO DAILY 03/02/18 pravastatin 40 mg tablet 40 mg PO DAILY 03/02/18 Tamsulosin HCl [Flomax] 0.4 mg PO DAILY 03/05/18 Allopurinol [Zyloprim] 300 mg PO DAILY 01/05/20 Cholecalciferol (Vitamin D3) [Vitamin D3] 5,000 unit PO DAILY 01/05/20 apixaban 5 mg tablet 5 mg PO BID #60 tab 01/28/20 furosemide 40 mg tablet 40 mg PO DAILY #30 tab 01/28/20 metoprolol tartrate 50 mg tablet 50 mg PO BID #180 tab 04/25/20 metroNIDAZOLE 0.75% [Metrogel Vaginal] 1 applic TOPICAL BID 06/02/20 Primary Care Physician: Vinod Kirby Chi, MD [Primary Care Provider] - Please Follow Up With: Sai Murphy MD When: call office next week to arrange for follow up and possible ca theterization Please Follow Up With: Vinod Kirby Chi, MD Disposition: Home Minutes spent on discharge:: 30 Patient Condition:: Stable Medical Necessity - Tobacco Use Smoking Status: Former smoker Tobacco Use: Non-smoker Meaningful Use Info Meaningful Use Diagnoses (Choose all that apply): None applicable OBSV E&M: 25198 Observation care discharge
== END 2020-06-03 12:31 | disposition home or self-care (01) ==
LOC: ED 14:44 → PCU 18:57
PROVIDERS: Admitting Provider Family Medicine; Emergency Provider Emergency Medicine; PCP Family Medicine Geriatric Medicine; Visit Provider Internal Medicine
DX: R07.89 Other chest pain (principal); I48.92 Unspecified atrial flutter; N40.0 Benign prostatic hyperplasia without lower urinary tract symptoms; E78.5 Hyperlipidemia, unspecified; I11.0 Hypertensive heart disease with heart failure; I50.22 Chronic systolic (congestive) heart failure; I42.8 Other cardiomyopathies; I48.91 Unspecified atrial fibrillation; I44.7 Left bundle-branch block, unspecified; M99.01 Segmental and somatic dysfunction of cervical region; M99.02 Segmental and somatic dysfunction of thoracic region; M19.90 Unspecified osteoarthritis, unspecified site; E66.9 Obesity, unspecified; Z79.899 Other long term (current) drug therapy; Z87.891 Personal history of nicotine dependence; Z68.34 Body mass index [BMI] 34.0-34.9, adult
CPT/HCPCS: 36415; 71045; 71275; 80048; 80053; 83735; 84484; 85025; 85379; 93005; 96360; 96361; 99218; 99251; 99284; Q9967; A4216; G0378; G0463

== ENCOUNTER → 2020-06-27 20:18 | Outpatient (CLI) | payer MEDICARE, BC, SELFPAY ==
[2020-06-13 09:40] VITALS: BMI 34.7
== END ==
PROVIDERS: PCP Family Medicine Geriatric Medicine; Visit Provider Nurse Practitioner Acute Care
DX: G47.33 Obstructive sleep apnea (adult) (pediatric) (principal)
CPT/HCPCS: 95811

== ENCOUNTER → 2020-07-31 14:04 | Outpatient (CLI) | payer MEDICARE, BC, SELFPAY ==
[2020-07-19 09:53] VITALS: BMI 34.7
== END ==
PROVIDERS: PCP Family Medicine Geriatric Medicine; Referring Provider Internal Medicine Cardiovascular Disease; Visit Provider Internal Medicine Cardiovascular Disease
DX: Z01.810 Encounter for preprocedural cardiovascular examination (principal)
CPT/HCPCS: 87635; C9803; U0002

== ENCOUNTER → 2020-08-18 09:52 | Outpatient (CLI) | payer MEDICARE, BC, SELFPAY ==
[2020-07-19 09:53] VITALS: BMI 34.7
[2020-08-18 11:33] LABS: Absolute Lymphocyte Count 1.95 X10^3/uL (0.83-4.51); Absolute Neutrophil Count 6.1 X10^3/uL (2.0-7.7); Basophil# 0.04 X10^3/uL; Basophil% 0.4 % (0-1); Eosinophil# 0.44 X10^3/uL; Eosinophils% 4.7 % (0-5); Hematocrit 42.8 % (40-54); Hemoglobin 13.7 g/dL (13.0-16.5); Lymphocyte # 1.95 X10^3/ul (4.0); Lymphocyte % 20.6 % (19-41); Mean Corpuscular Hgb 32.2 pg (27.0-32.0); Mean Corpuscular Volume 100.5 fL (80-94); Mean Platelet Vol. 12.7 fl (6.2-12.0); Monocyte# 0.89 X10^3/uL; Monocyte% 9.4 % (0-10); NRBC Flagged by Analyzer 0 % (0-5); Neutrophil # 6.09 X10^3/uL (2.7-7.7); Neutrophil % 64.5 % (47-70); Platelet Count 204 K/mm3 (150-450); RBC Distribution Width CV 13.3 % (11.6-14.6); RBC Distribution Width SD 49.3 fl (35.1-43.9); Red Blood Count 4.26 M/mm3 (4.6-6.2); White Blood Count 9.5 K/mm3 (4.4-11.0)
[2020-08-18 11:54] LABS: ALB/GLOB Ratio 0.9 RATIO (0.9-2.4); AST(SGOT) 13 U/L (15-37); Alanine Aminotransfer ALT/SGPT 28 U/L (16-61); Albumin, Serum 3.6 g/dL (3.2-5.0); Alkaline Phosphatase 109 U/L (45-117); Anion Gap 6 (5-15); BUN 26 mg/dL (7-18); BUN/Creat Ratio 36.9 RATIO (10-20); Calcium,Total 8.9 mg/dL (8.5-10.1); Chloride 105 mmol/L (98-107); EST Glomerular Filtration Rate 116 mL/min (>60); Est Glom Filt Rate - Afr Amer 140 mL/min (>60); Glucose 89 mg/dL (74-106); Potassium 3.9 mmol/L (3.5-5.1); Protein, Total 7.6 g/dL (6.4-8.2); Sodium Level 139 mmol/L (136-145); Thyroid Stim Hormone (TSH) 0.47 uIU/mL (0.358-3.74); Uric Acid 4.6 mg/dL (3.5-7.2)
[2020-08-18 11:55] LABS: Vitamin D,25 Hydroxy 53.6 ng/mL
== END ==
PROVIDERS: PCP Family Medicine Geriatric Medicine; Visit Provider Family Medicine Geriatric Medicine
DX: E55.9 Vitamin D deficiency, unspecified (principal); E78.5 Hyperlipidemia, unspecified; M10.9 Gout, unspecified
CPT/HCPCS: 36415; 80053; 82306; 84443; 84550; 85025

== ENCOUNTER → 2020-11-16 13:43 | Outpatient (CLI) | payer MEDICARE, BC, SELFPAY ==
[2020-07-19 09:53] VITALS: BMI 34.7
[2020-11-16 15:44] LABS: Absolute Lymphocyte Count 1.77 X10^3/uL (0.83-4.51); Absolute Neutrophil Count 7.1 X10^3/uL (2.0-7.7); Basophil# 0.02 X10^3/uL; Basophil% 0.2 % (0-1); Eosinophil# 0.31 X10^3/uL; Eosinophils% 3.2 % (0-5); Hematocrit 39.1 % (40-54); Hemoglobin 12.6 g/dL (13.0-16.5); Lymphocyte # 1.77 X10^3/ul (0.83-4.51); Mean Corp Hgb Conc 32.2 g/dL (32-36); Mean Corpuscular Hgb 32.1 pg (27.0-32.0); Mean Corpuscular Volume 99.5 fL (80-94); Mean Platelet Vol. 12.7 fl (6.2-12.0); Monocyte# 0.57 X10^3/uL; Monocyte% 5.8 % (0-10); NRBC Flagged by Analyzer 0 % (0-5); Neutrophil % 72.3 % (47-70); Platelet Count 176 K/mm3 (150-450); RBC Distribution Width CV 13.9 % (11.6-14.6); RBC Distribution Width SD 50.8 fl (35.1-43.9); Red Blood Count 3.93 M/mm3 (4.6-6.2); White Blood Count 9.8 K/mm3 (4.4-11.0)
[2020-11-16 16:04] LABS: Vitamin D,25 Hydroxy 50.7 ng/mL
[2020-11-16 16:10] LABS: ALB/GLOB Ratio 1.1 RATIO (0.9-2.4); AST(SGOT) 16 U/L (15-37); Alanine Aminotransfer ALT/SGPT 30 U/L (16-61); Albumin, Serum 3.7 g/dL (3.2-5.0); Alkaline Phosphatase 99 U/L (45-117); Anion Gap 8 (5-15); BUN 23 mg/dL (7-18); BUN/Creat Ratio 27.2 RATIO (10-20); Calcium,Total 8.8 mg/dL (8.5-10.1); Chloride 103 mmol/L (98-107); Creatinine, Serum 0.85 mg/dL (0.70-1.30); EST Glomerular Filtration Rate 94 mL/min (>60); Est Glom Filt Rate - Afr Amer 113 mL/min (>60); Globulin 3.5 g/dL (2.2-4.2); Glucose 148 mg/dL (74-106); Potassium 3.9 mmol/L (3.5-5.1); Protein, Total 7.2 g/dL (6.4-8.2); Sodium Level 139 mmol/L (136-145); Thyroid Stim Hormone (TSH) 0.42 uIU/mL (0.358-3.74); Uric Acid 4.8 mg/dL (3.5-7.2)
[2020-11-17 11:05] LABS: Hemoglobin A1c 5.6 % (3.8-5.6)
== END ==
PROVIDERS: PCP Family Medicine Geriatric Medicine; Visit Provider Family Medicine Geriatric Medicine
DX: I10 Essential (primary) hypertension (principal); E55.9 Vitamin D deficiency, unspecified; M10.9 Gout, unspecified; R73.9 Hyperglycemia, unspecified
CPT/HCPCS: 36415; 80053; 82306; 83036; 84443; 84550; 85025

== ENCOUNTER → 2021-01-01 08:48 | Outpatient (CLI) | payer MEDICARE, BC, SELFPAY ==
[2020-11-17 10:30] VITALS: BMI 35.6
== END ==
PROVIDERS: PCP Family Medicine Geriatric Medicine; Referring Provider Internal Medicine Cardiovascular Disease; Visit Provider Internal Medicine Cardiovascular Disease
DX: I48.92 Unspecified atrial flutter (principal); D64.9 Anemia, unspecified; I42.8 Other cardiomyopathies; I44.7 Left bundle-branch block, unspecified; I50.22 Chronic systolic (congestive) heart failure; Z98.890 Other specified postprocedural states; E78.5 Hyperlipidemia, unspecified; G47.33 Obstructive sleep apnea (adult) (pediatric); I11.0 Hypertensive heart disease with heart failure
CPT/HCPCS: 93225; 93226

== ENCOUNTER → 2021-03-01 15:41 | Outpatient (CLI) | payer MEDICARE, BC, SELFPAY ==
[2021-03-01 17:08] LABS: Absolute Lymphocyte Count 1.82 X10^3/uL (0.83-4.51); Absolute Neutrophil Count 6.5 X10^3/uL (2.0-7.7); Basophil# 0.02 X10^3/uL; Basophil% 0.2 % (0-1); Eosinophil# 0.38 X10^3/uL; Hematocrit 38.8 % (40-54); Hemoglobin 12.5 g/dL (13.0-16.5); Lymphocyte # 1.82 X10^3/ul (0.83-4.51); Lymphocyte % 19.1 % (19-41); Mean Corp Hgb Conc 32.2 g/dL (32-36); Mean Corpuscular Hgb 32.2 pg (27.0-32.0); Monocyte# 0.84 X10^3/uL; Monocyte% 8.8 % (0-10); NRBC Flagged by Analyzer 0 % (0-5); Neutrophil # 6.45 X10^3/uL (2.7-7.7); Neutrophil % 67.5 % (47-70); Platelet Count 183 K/mm3 (150-450); RBC Distribution Width CV 13.7 % (11.6-14.6); RBC Distribution Width SD 50.2 fl (35.1-43.9); Red Blood Count 3.88 M/mm3 (4.6-6.2); White Blood Count 9.6 K/mm3 (4.4-11.0)
[2021-03-01 17:21] LABS: Vitamin D,25 Hydroxy 55.9 ng/mL
[2021-03-01 17:33] LABS: AST(SGOT) 12 U/L (15-37); Alanine Aminotransfer ALT/SGPT 26 U/L (16-61); Albumin, Serum 3.7 g/dL (3.2-5.0); Alkaline Phosphatase 99 U/L (45-117); Anion Gap 7 (5-15); BUN 23 mg/dL (7-18); BUN/Creat Ratio 25.9 RATIO (10-20); Calcium,Total 8.8 mg/dL (8.5-10.1); Chloride 104 mmol/L (98-107); Creatinine, Serum 0.89 mg/dL (0.70-1.30); EST Glomerular Filtration Rate 89 mL/min (>60); Est Glom Filt Rate - Afr Amer 107 mL/min (>60); Globulin 3.7 g/dL (2.2-4.2); Glucose 93 mg/dL (74-106); Protein, Total 7.4 g/dL (6.4-8.2); Sodium Level 141 mmol/L (136-145); Thyroid Stim Hormone (TSH) 0.88 uIU/mL (0.358-3.74)
== END ==
PROVIDERS: PCP Family Medicine Geriatric Medicine; Visit Provider Family Medicine Geriatric Medicine
DX: I10 Essential (primary) hypertension (principal); E55.9 Vitamin D deficiency, unspecified; M10.9 Gout, unspecified
CPT/HCPCS: 36415; 80053; 82306; 84443; 84550; 85025

== ENCOUNTER → 2021-04-04 09:51 | Outpatient (CLI) | payer MEDICARE, BC, SELFPAY ==
--- NOTE | 2021-04-04 09:54 | ECHOCS_ITS ---
Version 2 Reason For Study: Afib, Aflutter Procedure This was a 2D Doppler, Color Flow transthoracic echocardiogram. Contrast injection was performed. Exam performed in department. Left Ventricle Mildly dilated left ventricle. Left ventricular systolic function is normal. The estimated ejection fraction is 55 %. Stage 2 diastolic dysfunction. No regional wall motion abnormalities noted. Right Ventricle Normal RV size. Normal systolic function. Atria The left atrium is moderately enlarged. The right atrium is mildly enlarged. Mitral Valve Normal mitral valve. Mild (1+) eccentric mitral valve insufficiency. Tricuspid Valve Normal tricuspid valve. Mild (1+) tricuspid valve insufficiency. Pulmonary artery systolic pressure is 40 mmHg. Pulmonic Valve Normal pulmonic valve. Great Vessels Normal aortic root. The pulmonary artery is normal size. Normal inferior vena cava. Pericardium/Pleural No pericardial effusion. Medication Diluted definity 3.5ml given slow IV push to enhance endocardial definition. MMode/2D Measurements & Calculations LVIDd: 6.2 cm IVSd: 1.4 cm Ao root diam: 3.2 cm LVIDs: 4.2 cm LVPWd: 1.1 cm RVDd: 5.4 cm FS: 32.2 % LAV(MOD-bp): 107.7 ml LVAd ap4: 39.4 cm2 SV(MOD-sp4): 87.6 ml LAV(MOD-bp) Indexed: 49.6 ml/m2 LVLd ap4: 8.7 cm LAV(MOD-sp2): 111.3 ml EDV(MOD-sp4): 145.0 ml LAV(MOD-sp4): 100.1 ml EDV(sp4-el): 150.7 ml LVAs ap4: 21.9 cm2 LVLs ap4: 7.2 cm ESV(MOD-sp4): 57.4 ml ESV(sp4-el): 56.2 ml EF(MOD-sp4): 60.4 % EF(sp4-el): 62.7 % SV(sp4-el): 94.6 ml LA A4 area: 29.0 cm2 LA dimension(2D): 4.2 cm RA A4 area: 23.7 cm2 Doppler Measurements & Calculations MV E max navneet: 78.5 cm/sec Lat Peak E' Navneet: 8.6 cm/sec Med Peak E' Navneet: 6.1 cm/sec MV A max navneet: 57.8 cm/sec E/E' lat: 9.1 E/E' med: 12.8 MV E/A: 1.4 Ao V2 max: 138.6 cm/sec LV V1 max: 117.4 cm/sec PA V2 max: 117.8 cm/sec Ao max P.7 mmHg LV V1 max P.5 mmHg Ao V2 mean: 93.8 cm/sec Ao mean P.9 mmHg Ao V2 VTI: 31.9 cm TR max navneet: 298.3 cm/sec TR max P.6 mmHg ECHO/Echo Complete W/ Contrast Interpretation Summary Mildly dilated left ventricle. Left ventricular systolic function is normal. The estimated ejection fraction is 55 %. Pulmonary artery systolic pressure is 40 mmHg. Stage 2 diastolic dysfunction. The left atrium is moderately enlarged. Contrast injection was performed. Ordering Physician: Sai Murphy Referring Physician: Vinod Kirby Chi Performed By: Elizabeth Saini, RDCS, RVT
== END ==
PROVIDERS: PCP Family Medicine Geriatric Medicine; Referring Provider Internal Medicine Cardiovascular Disease; Visit Provider Internal Medicine Cardiovascular Disease
DX: I42.8 Other cardiomyopathies (principal)
CPT/HCPCS: 93306; Q9957; A4216; C8929

== ENCOUNTER 2021-06-26 16:28 | Outpatient (CLI) | payer MEDICARE, BC, SELFPAY ==
[2021-06-26 17:28] LABS: BNP,B-Type NATRIURETIC PEPTIDE 74.6 pg/mL (0-100)
[2021-06-26 17:33] LABS: AST(SGOT) 12 U/L (15-37); Alanine Aminotransfer ALT/SGPT 25 U/L (16-61); Albumin, Serum 3.9 g/dL (3.2-5.0); Alkaline Phosphatase 96 U/L (45-117); Bilirubin, Direct 0.17 mg/dL (0.00-0.30); Cholesterol 158 mg/dL (200); High Density Lipoprotein 51 mg/dL; Protein, Total 7.9 g/dL (6.4-8.2); Triglycerides 128 mg/dL; Very Low Density Lipoprotein 26 mg/dL (5-40)
== END 2021-06-26 23:59 | disposition home or self-care (01) ==
LOC: LAB 16:30
PROVIDERS: PCP Family Medicine Geriatric Medicine; Visit Provider Internal Medicine Cardiovascular Disease
DX: I42.8 Other cardiomyopathies (principal); I10 Essential (primary) hypertension; E78.5 Hyperlipidemia, unspecified
CPT/HCPCS: 36415; 80061; 80076; 83880

== ENCOUNTER 2021-07-04 13:35 | Outpatient (CLI) | payer MEDICARE, BC, SELFPAY ==
[2021-07-04 14:45] LABS: PSA,Total- Diagnostic 3.94 ng/mL (0.0-4.0)
== END 2021-07-04 23:59 | disposition home or self-care (01) ==
LOC: LAB 13:36
PROVIDERS: PCP Family Medicine Geriatric Medicine; Visit Provider Urology
DX: R97.20 Elevated prostate specific antigen [PSA] (principal)
CPT/HCPCS: 36415; 84153

== ENCOUNTER 2021-09-05 13:12 | Outpatient (CLI) | payer MEDICARE, BC, SELFPAY ==
[2021-09-05 16:41] LABS: Absolute Lymphocyte Count 1.76 X10^3/uL (0.83-4.51); Absolute Neutrophil Count 6.2 X10^3/uL (2.0-7.7); Basophil# 0.02 X10^3/uL; Basophil% 0.2 % (0-1); Eosinophil# 0.37 X10^3/uL; Hematocrit 38.5 % (40-54); Hemoglobin 12.4 g/dL (13.0-16.5); Lymphocyte # 1.76 X10^3/ul (0.83-4.51); Lymphocyte % 19.1 % (19-41); Mean Corp Hgb Conc 32.2 g/dL (32-36); Mean Corpuscular Hgb 32.7 pg (27.0-32.0); Mean Corpuscular Volume 101.6 fL (80-94); Monocyte# 0.88 X10^3/uL; Monocyte% 9.5 % (0-10); NRBC Flagged by Analyzer 0 % (0-5); Neutrophil # 6.16 X10^3/uL (2.7-7.7); Neutrophil % 66.8 % (47-70); Platelet Count 194 K/mm3 (150-450); RBC Distribution Width CV 13.9 % (11.6-14.6); RBC Distribution Width SD 51.9 fl (35.1-43.9); Red Blood Count 3.79 M/mm3 (4.6-6.2); White Blood Count 9.2 K/mm3 (4.4-11.0)
[2021-09-05 16:57] LABS: AST(SGOT) 15 U/L (15-37); Alanine Aminotransfer ALT/SGPT 29 U/L (16-61); Albumin, Serum 3.8 g/dL (3.2-5.0); Alkaline Phosphatase 95 U/L (45-117); Anion Gap 7 (5-15); BUN 32 mg/dL (7-18); BUN/Creat Ratio 33.8 RATIO (10-20); Calcium,Total 8.6 mg/dL (8.5-10.1); Chloride 104 mmol/L (98-107); Creatinine, Serum 0.95 mg/dL (0.70-1.30); EST Glomerular Filtration Rate 82 mL/min (>60); Est Glom Filt Rate - Afr Amer 99 mL/min (>60); Globulin 3.8 g/dL (2.2-4.2); Glucose 95 mg/dL (74-106); Potassium 4.3 mmol/L (3.5-5.1); Protein, Total 7.6 g/dL (6.4-8.2); Sodium Level 141 mmol/L (136-145); Thyroid Stim Hormone (TSH) 1.01 uIU/mL (0.358-3.74); Uric Acid 5.1 mg/dL (3.5-7.2)
== END 2021-09-05 23:59 | disposition home or self-care (01) ==
LOC: POLAB3 13:14
PROVIDERS: PCP Family Medicine Geriatric Medicine; Visit Provider Family Medicine Geriatric Medicine
DX: I10 Essential (primary) hypertension (principal); E55.9 Vitamin D deficiency, unspecified; M10.9 Gout, unspecified
CPT/HCPCS: 36415; 80053; 82306; 84443; 84550; 85025

== ENCOUNTER → 2022-01-07 | Outpatient (CLI) | payer MEDICARE, BC, SELFPAY | END | disposition home or self-care (01) | LOC: PSN 12:23 | PROVIDERS: PCP Family Medicine Geriatric Medicine; Referring Provider Family Medicine Geriatric Medicine; Visit Provider Family Medicine Geriatric Medicine | DX: U07.1 COVID-19 (principal); R68.83 Chills (without fever) | CPT/HCPCS: 87635; 87804; 87807; C9803; U0003; U0005 ==

== ENCOUNTER 2022-01-08 14:35 | Outpatient (CLI) | payer MEDICARE, BC, SELFPAY ==
[2022-01-08 14:46] VITALS: BP 156/57; PULSE 41; RESP 16; TEMP 2.6; TEMP 36.7; O2SAT 96; BMI 33.9
[2022-01-08] MEDS: 0.9% Saline Lock 10 ML Syringe IV (15:09)
[2022-01-08] MEDS: BEBTELOVIMAB 175 MG/2 ML VIAL IV (15:10)
[2022-01-08 15:36] VITALS: BP 161/69; PULSE 49; RESP 16; TEMP 36.7
[2022-01-08 16:10] VITALS: BP 145/55; PULSE 41; RESP 16; TEMP 36.2; O2SAT 96
== END 2022-01-08 16:10 | disposition home or self-care (01) ==
LOC: MS3OUT 14:37 → MS2 14:38
PROVIDERS: PCP Family Medicine Geriatric Medicine; Referring Provider Nurse Practitioner Acute Care; Visit Provider Nurse Practitioner Acute Care
DX: Z23 Encounter for immunization (principal); U07.1 COVID-19
CPT/HCPCS: M0222; A4216

== ENCOUNTER → 2022-03-06 | Outpatient (CLI) | payer MEDICARE, BC, SELFPAY ==
[2022-03-06 17:30] LABS: Absolute Lymphocyte Count 1.72 X10^3/uL (0.83-4.51); Absolute Neutrophil Count 5.7 X10^3/uL (2.0-7.7); Basophil# 0.03 X10^3/uL; Basophil% 0.3 % (0-1); Eosinophil# 0.36 X10^3/uL; Eosinophils% 4.1 % (0-5); Hematocrit 40.6 % (40-54); Lymphocyte # 1.72 X10^3/ul (0.83-4.51); Lymphocyte % 19.8 % (19-41); Mean Corpuscular Hgb 32.8 pg (27.0-32.0); Mean Corpuscular Volume 102.5 fL (80-94); Mean Platelet Vol. 13.4 fl (6.2-12.0); Monocyte# 0.85 X10^3/uL; Monocyte% 9.8 % (0-10); NRBC Flagged by Analyzer 0 % (0-5); Neutrophil % 65.7 % (47-70); Platelet Count 182 K/mm3 (150-450); RBC Distribution Width CV 13.9 % (11.6-14.6); RBC Distribution Width SD 53.2 fl (35.1-43.9); Red Blood Count 3.96 M/mm3 (4.6-6.2); White Blood Count 8.7 K/mm3 (4.4-11.0)
[2022-03-06 18:13] LABS: Vitamin D,25 Hydroxy 68.6 ng/mL
[2022-03-06 18:14] LABS: ALB/GLOB Ratio 1.1 RATIO (0.9-2.4); AST(SGOT) 14 U/L (15-37); Alanine Aminotransfer ALT/SGPT 26 U/L (16-61); Albumin, Serum 3.8 g/dL (3.2-5.0); Alkaline Phosphatase 93 U/L (45-117); Anion Gap 6 (5-15); BUN 27 mg/dL (7-18); BUN/Creat Ratio 26.7 RATIO (10-20); Calcium,Total 9.1 mg/dL (8.5-10.1); Chloride 109 mmol/L (98-107); Creatinine, Serum 1.01 mg/dL (0.70-1.30); EST Glomerular Filtration Rate 76 mL/min (>60); Est Glom Filt Rate - Afr Amer 92 mL/min (>60); Globulin 3.5 g/dL (2.2-4.2); Glucose 83 mg/dL (74-106); Potassium 3.8 mmol/L (3.5-5.1); Protein, Total 7.3 g/dL (6.4-8.2); Sodium Level 144 mmol/L (136-145); Thyroid Stim Hormone (TSH) 0.76 uIU/mL (0.358-3.74); Uric Acid 4.3 mg/dL (3.5-7.2)
== END | disposition home or self-care (01) ==
LOC: POLAB3 13:32
PROVIDERS: PCP Family Medicine Geriatric Medicine; Visit Provider Family Medicine Geriatric Medicine
DX: I10 Essential (primary) hypertension (principal); E55.9 Vitamin D deficiency, unspecified; M10.9 Gout, unspecified
CPT/HCPCS: 36415; 80053; 82306; 84443; 84550; 85025

== ENCOUNTER → 2022-07-10 | Outpatient (CLI) | payer MEDICARE, BC, SELFPAY ==
[2022-07-10 17:27] LABS: PSA,Total- Diagnostic 3.54 ng/mL (0.0-4.0)
== END | disposition home or self-care (01) ==
PROVIDERS: PCP Family Medicine Geriatric Medicine; Referring Provider Urology; Visit Provider Urology
DX: R97.20 Elevated prostate specific antigen [PSA] (principal)
CPT/HCPCS: 36415; 84153

== ENCOUNTER → 2022-08-30 | Outpatient (CLI) | payer MEDICARE, BC, SELFPAY | END | disposition home or self-care (01) | LOC: PSN 12:14 | PROVIDERS: PCP Family Medicine Geriatric Medicine; Referring Provider Nurse Practitioner Family; Visit Provider Nurse Practitioner Family | DX: R53.83 Other fatigue (principal); I42.8 Other cardiomyopathies; I48.3 Typical atrial flutter; I44.7 Left bundle-branch block, unspecified; Z79.899 Other long term (current) drug therapy; R00.1 Bradycardia, unspecified | CPT/HCPCS: 93225; 93226 ==

== ENCOUNTER → 2022-09-04 | Outpatient (CLI) | payer MEDICARE, BC, SELFPAY ==
[2022-09-04 17:15] LABS: Absolute Lymphocyte Count 1.42 X10^3/uL (0.83-4.51); Absolute Neutrophil Count 6.4 X10^3/uL (2.0-7.7); Basophil# 0.02 X10^3/uL; Basophil% 0.2 % (0-1); Eosinophil# 0.23 X10^3/uL; Eosinophils% 2.5 % (0-5); Hematocrit 38.7 % (40-54); Hemoglobin 12.6 g/dL (13.0-16.5); Lymphocyte # 1.42 X10^3/ul (0.83-4.51); Lymphocyte % 15.7 % (19-41); Mean Corp Hgb Conc 32.6 g/dL (32-36); Mean Corpuscular Hgb 33.3 pg (27.0-32.0); Mean Corpuscular Volume 102.4 fL (80-94); Mean Platelet Vol. 12.5 fl (6.2-12.0); Monocyte# 0.98 X10^3/uL; Monocyte% 10.8 % (0-10); NRBC Flagged by Analyzer 0 % (0-5); Neutrophil # 6.38 X10^3/uL (2.7-7.7); Neutrophil % 70.5 % (47-70); Platelet Count 155 K/mm3 (150-450); RBC Distribution Width CV 13.5 % (11.6-14.6); RBC Distribution Width SD 51.6 fl (35.1-43.9); Red Blood Count 3.78 M/mm3 (4.6-6.2); White Blood Count 9.1 K/mm3 (4.4-11.0)
[2022-09-04 17:54] LABS: Anion Gap 5 (5-15); BUN 27 mg/dL (7-18); BUN/Creat Ratio 29.2 RATIO (10-20); Calcium,Total 9.2 mg/dL (8.5-10.1); Chloride 106 mmol/L (98-107); Creatinine, Serum 0.93 mg/dL (0.70-1.30); EST Glomerular Filtration Rate 84 mL/min (>60); Est Glom Filt Rate - Afr Amer 102 mL/min (>60); Glucose 120 mg/dL (74-106); Potassium 3.5 mmol/L (3.5-5.1); Sodium Level 138 mmol/L (136-145)
[2022-09-04 17:56] LABS: Vitamin D,25 Hydroxy 71.4 ng/mL
[2022-09-04 18:07] LABS: ALB/GLOB Ratio 1.1 RATIO (0.9-2.4); AST(SGOT) 20 U/L (15-37); Alanine Aminotransfer ALT/SGPT 30 U/L (16-61); Albumin, Serum 3.7 g/dL (3.2-5.0); Alkaline Phosphatase 92 U/L (45-117); Anion Gap 4 (5-15); BUN 27 mg/dL (7-18); BUN/Creat Ratio 27.6 RATIO (10-20); Calcium,Total 8.8 mg/dL (8.5-10.1); Chloride 106 mmol/L (98-107); Creatinine, Serum 0.98 mg/dL (0.70-1.30); EST Glomerular Filtration Rate 79 mL/min (>60); Est Glom Filt Rate - Afr Amer 95 mL/min (>60); Globulin 3.3 g/dL (2.2-4.2); Glucose 103 mg/dL (74-106); Potassium 3.8 mmol/L (3.5-5.1); Sodium Level 139 mmol/L (136-145); Thyroid Stim Hormone (TSH) 0.87 uIU/mL (0.358-3.74); Uric Acid 4.5 mg/dL (3.5-7.2)
== END | disposition home or self-care (01) ==
LOC: POLAB3 15:20
PROVIDERS: PCP Family Medicine Geriatric Medicine; Visit Provider Family Medicine Geriatric Medicine
DX: E55.9 Vitamin D deficiency, unspecified (principal); I10 Essential (primary) hypertension; M10.9 Gout, unspecified
CPT/HCPCS: 36415; 80048; 80053; 82306; 84443; 84550; 85025

== ENCOUNTER 2023-03-19 06:42 | Day surgery (SDC) | payer MEDICARE, BC, SELFPAY ==
[2023-03-13 14:39] LABS: Absolute Lymphocyte Count 1.72 X10^3/uL (0.83-4.51); Absolute Neutrophil Count 5.8 X10^3/uL (2.0-7.7); Basophil# 0.02 X10^3/uL; Basophil% 0.2 % (0-1); Eosinophil# 0.28 X10^3/uL; Eosinophils% 3.3 % (0-5); Hematocrit 39.8 % (40-54); Hemoglobin 12.7 g/dL (13.0-16.5); Lymphocyte # 1.72 X10^3/ul (0.83-4.51); Mean Corp Hgb Conc 31.9 g/dL (32-36); Mean Corpuscular Hgb 32.8 pg (27.0-32.0); Mean Corpuscular Volume 102.8 fL (80-94); Mean Platelet Vol. 12.7 fl (6.2-12.0); Monocyte# 0.71 X10^3/uL; Monocyte% 8.3 % (0-10); NRBC Flagged by Analyzer 0 % (0-5); Neutrophil # 5.82 X10^3/uL (2.7-7.7); Neutrophil % 67.9 % (47-70); Platelet Count 163 K/mm3 (150-450); RBC Distribution Width CV 13.7 % (11.6-14.6); RBC Distribution Width SD 52.4 fl (35.1-43.9); Red Blood Count 3.87 M/mm3 (4.6-6.2); White Blood Count 8.6 K/mm3 (4.4-11.0)
[2023-03-13 14:49] LABS: Vitamin D,25 Hydroxy 61.3 ng/mL
[2023-03-13 15:04] LABS: AST(SGOT) 13 U/L (15-37); Alanine Aminotransfer ALT/SGPT 27 U/L (16-61); Albumin, Serum 3.7 g/dL (3.2-5.0); Alkaline Phosphatase 82 U/L (45-117); Anion Gap 9 (5-15); BUN 22 mg/dL (7-18); BUN/Creat Ratio 22.4 RATIO (10-20); Calcium,Total 8.8 mg/dL (8.5-10.1); Chloride 103 mmol/L (98-107); Creatinine, Serum 0.98 mg/dL (0.70-1.30); EST Glomerular Filtration Rate 78 mL/min (>60); Est Glom Filt Rate - Afr Amer 95 mL/min (>60); Globulin 3.7 g/dL (2.2-4.2); Glucose 130 mg/dL (74-106); Potassium 3.9 mmol/L (3.5-5.1); Protein, Total 7.4 g/dL (6.4-8.2); Sodium Level 138 mmol/L (136-145); Thyroid Stim Hormone (TSH) 0.99 uIU/mL (0.358-3.74); Uric Acid 4.7 mg/dL (3.5-7.2)
[2023-03-19] MEDS: Lactated Ringers 1,000 ML 15 ML IV (07:09)
[2023-03-19 07:10] VITALS: BP 166/66; PULSE 50; RESP 18; TEMP 36.3; O2SAT 98; BMI 37.4
--- NOTE | 2023-03-19 07:31 | PCM.HP.BLA ---
History and Physical 77 yo male comes in and report more difficulty with urination very weak stream, dribbles, slow stream and long time to empty bladder on Tamsulosin daily, this has gradually getting worse. check cysto today has a history of a colo- vesical fistual a long time ago having more trouble voiding and slow stream ALLERGIES: Sulfa MEDICATIONS: Allopurinol 300 mg tablet 1 tablet PO Daily Finasteride 5 mg tablet 1 tablet PO Daily Amiodarone Hcl 200 mg tablet 1 tablet PO Daily Citalopram Hbr 10 mg tablet 1 tablet PO Daily Eliquis 5 mg tablet 1 tablet PO BID Furosemide 40 mg tablet 1 tablet PO Daily Glucosamine & Chondroitin Losartan Potassium 50 mg tablet 1 tablet PO BID Losartan-Hydrochlorothiazide Metoprolol Tartrate 25 mg tablet 1 tablet PO BID Metronidazole 0.75 % gel Mobic Pravastatin Pravastatin Sodium 40 mg tablet 1 tablet PO Daily Tamsulosin Hcl 0.4 mg capsule 1 capsule PO Daily Tylenol Pm Extra Strength Notes: has had pneumonia vaccine Had COVID vaccine Immunizations: None VITAL SIGNS: 02/18/2023 01:39 PM Weight 230 lb / 104.33 kg Height 68 in / 172.72 cm BMI 35.0 kg/m? - BMI Counseling was provided. PHYSICAL EXAM: Constitutional: Well-nourished. No physical deformities. Normally developed. Good grooming. Neck: Neck symmetrical, not swollen. Normal tracheal position. Respiratory: No labored breathing, no use of accessory muscles. Cardiovascular: Normal temperature, normal extremity pulses, no swelling, no varicosities. Lymphatic: No enlargement of neck, axillae, groin. Skin: No paleness, no jaundice, no cyanosis. No lesion, no ulcer, no rash. Neurologic / Psychiatric: Oriented to time, oriented to place, oriented to person. No depression, no anxiety, no agitation. Gastrointestinal: No mass, no tenderness, no rigidity, non obese abdomen. Eyes: Normal conjunctivae. Normal eyelids. Ears, Nose, Mouth, and Throat: Left ear no scars, no lesions, no masses. Right ear no scars, no lesions, no masses. Nose no scars, no lesions, no masses. Normal hearing. Normal lips. Musculoskeletal: Normal gait and station of head and neck. Complexity of Data: Source Of History: Patient Urine Test Review: Urinalysis 02/22/23 02/16/22 07/07/23/18 03/10/17 03/05/16 02/14/15 02/08/14 PSA Total PSA 3.54 ng/mL 3.94 ng/mL 6.25 ng/mL 4.12 ng/mL 5.27 ng/mL 4.87 mg/dl 5.30 ng/ml 4.38 ng/ml Notes [facility] [address] [place], [address] This test was performed using the TPSA assay method for the Dimension chemistry system. Values obtained with different assay methods cannot be used interchangably. When changing PSA assays in the course of monitoring a patient, additional sequential testing should be carried out to confirm baseline values. [facility] [address] [place], [address] This test was performed using the TPSA assay method for the Dimension chemistry system. Values obtained with different assay methods cannot be used interchangably. When changing PSA assays in the course of monitoring a patient, additional sequential testing should be carried out to confirm baseline values. [facility] [place], [address] This test was performed using the TPSA assay method for the Dimension chemistry system. Values obtained with different assay methods cannot be used interchangably. When changing PSA assays in the course of monitoring a patient, additional sequential testing should be carried out to confirm baseline values. [facility] [place], [address] This test was performed using the TPSA assay method for the Dimension chemistry system. Values obtained with different assay methods cannot be used interchangably. When changing PSA assays in the course of monitoring a patient, additional sequential testing should be carried out to confirm baseline values. [facility] [address] [place], [address] This test was performed using the TPSA assay method for the Dimension chemistry system. Values obtained with different assay methods cannot be used interchangably. When changing PSA assays in the course of monitoring a patient, additional sequential testing should be carried out to confirm baseline values. Test performed at: [facility] [place] [address] This test was performed using the TPSA assay method for the Dimension chemistry system. Values obtained with different assay methods cannot be used interchangably. When changing PSA assays in the course of monitoring a patient, additional sequential testing should be carried out to confirm baseline values. This test was performed using the TPSA assay method for the Dimension chemistry system. Values obtained with different assay methods cannot be used interchangably. When changing PSA assays in the course of monitoring a patient, additional sequential testing should be carried out to confirm baseline values. PROCEDURES: Flexible Cystoscopy - 54712 Risks, benefits, and some of the potential complications of the procedure were discussed at length with the patient including infection, bleeding, voiding discomfort, urinary retention, fever, chills, sepsis, and others. All questions were answered. Informed consent was obtained. Antibiotic prophylaxis was given. Sterile technique and intraurethral analgesia were used. Meatus: Normal size. Normal location. Normal condition. Urethra: Severe penile stricture. External Sphincter: Normal. Verumontanum: Normal. Prostate: Non-obstructing. Mild hyperplasia. Bladder Neck: Non-obstructing. Ureteral Orifices: Normal location. Normal size. Normal shape. Effluxed clear urine. Bladder: No trabeculation. Normal mucosa. No stones. 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
--- NOTE | 2023-03-19 07:32 | DCINST_ITS ---
Discharge Instructions Diet Discharge Diet: No restrictions Activity Discharge Activity: Return to Normal Activity and May Not Drive (while taking narcotic pain medications.) Dressing / Incision Call your doctor if you observe: Fever of 101 or Higher Follow Up Care Please Follow Up With: Rudy Corea MD When: Call [phone] for an appointment Test Results: Test results from this visit will be discussed in further detail at your follow- up appointment, if applicable. Discharge Plan Admission Primary Reason for Your Visit: DVIU Attending Provider: Rudy Corea Primary Care Provider: Vinod Kirby Chi Discharge Orders/Prescriptions Prescriptions: New ciprofloxacin HCl [Cipro] 500 mg tablet 500 mg PO BID Qty: 14 0RF Continued pravastatin 40 mg tablet 40 mg PO QHS citalopram 10 mg tablet 10 mg PO DAILY cholecalciferol (vitamin D3) 125 mcg (5,000 unit) capsule 125 mcg PO DAILY acetaminophen [Tylenol Arthritis Pain] 650 mg tablet extended release 650 mg PO Q12H lactobacillus combination no.8 3 billion cell capsule 1 cell PO QHS metronidazole 0.75 % gel 1 applic topical DAILY PRN (Reason: SKIN) amiodarone 200 mg tablet 100 mg PO DAILY Qty: 45 3RF tamsulosin 0.4 MG capsule 0.4 mg PO DAILY allopurinol 300 MG tablet 300 mg PO DAILY finasteride 5 mg tablet 5 mg PO DAILY Patient Comments: TAKE 1 TABLET BY MOUTH EVERY DAY losartan 50 mg tablet 50 mg PO BID Qty: 180 3RF metoprolol tartrate 25 mg tablet 25 mg PO BID Qty: 180 3RF furosemide 40 mg tablet See Rx Instructions .ROUTE .COMPLEX Qty: 90 3RF Dose Instruction: TAKE 1 TABLET BY MOUTH EVERY DAY Rx Instructions: TAKE 1 TABLET BY MOUTH EVERY DAY Held Xarelto 20 mg tablet 20 mg PO QPM Qty: 30 12RF Hold Instructions: Resume on 04/02/23. Rx Instructions: must administer with evening meal Referrals / Follow Up: Rudy Corea MD [Med Staff - Active Staff] - Vinod Kirby Chi, MD [Primary Care Provider] - Disposition Disposition (needs filled in before D/C Order can be placed): Home, Self Care
[2023-03-19] MEDS: Cefazolin 2 GM in 0.9% Normal Saline (100mL Bag) 100 ML IV (08:31)
--- NOTE | 2023-03-19 08:56 | PCM.OPRPT ---
Report of Operation Date of Procedure: 03/19/23 Pre-Operative Diagnosis: Anterior urethral stricture Post-Operative Diagnosis: The same Surgery/Procedure Performed:: Direct vision internal urethrotomy and placement of a Mercedes and cystoscopy Description of Surgical Findings:: Patient was seen in the office because of some difficulty going to the bathroom on cystoscopy was found to have a dense anterior urethral stricture in the anterior pendulous portion of the urethra so today were again performed a direct vision internal urethrotomy and placement of a Mercedes catheter. He was taken back to the operating room after induction of anesthesia he was placed in dorsolithotomy position. Went into the urethra with a cystoscope immediately encountered a very dense anterior stricture that was right beyond the fossa navicularis. I then put in the DVIU set I used a straight knife and through the pinpoint opening I was able get to the nice the opening and then bent the scope back in and made it clear cut on the stricture at the 12:00 I then cut deep until I reached the deep fibers but not beyond that there was no significant bleeding from the cut and once I cut this open I was able to get through the stricture I then went inside there were no other structures along the course of the the urethra sphincter was intact the prostate was wide open from a prior TURP inside the bladder was normal I then pulled back and then I cut the stricture a little bit more and after the stricture was opened up all the way then I was able to put a 20 Malagasy catheter into the bladder we will leave the catheter in for 2 weeks to go home with antibiotics and he will follow-up in the office for catheter removal in 2 weeks. Surgeon: Rudy Corea Type of Anesthesia: General Drains: 20 fr mercedes Estimated Blood Loss (mL): 0 Admit VTE Documentation VTE Present on Admission: No VTE Mechan Device Prophylaxis: SCD's VTE Pharm Prophylaxis ordered?: No
[2023-03-19 09:04] VITALS: BP 149/64; BP 166/66; PULSE 54; RESP 14; TEMP 36.2; O2SAT 97
[2023-03-19 09:15] VITALS: BP 135/61; BP 166/66; PULSE 51; RESP 16; O2SAT 97
[2023-03-19 09:30] VITALS: BP 138/66; BP 166/66; PULSE 51; RESP 16; O2SAT 96
[2023-03-19 09:35] VITALS: BP 152/68; BP 166/66; PULSE 49; RESP 16; TEMP 36.4; O2SAT 97
[2023-03-19 11:02] VITALS: BP 141/57; BP 166/66; PULSE 45; RESP 16; TEMP 36.4; O2SAT 94
== END 2023-03-19 11:05 | disposition home or self-care (01) ==
LOC: SDC 06:43 → AC 06:45
PROVIDERS: Anesthesiology; PCP Family Medicine Geriatric Medicine; Referring Provider Urology; Visit Provider Urology
PROC: 0T7D8ZZ Dilation of Urethra, Via Natural or Artificial Opening Endoscopic (ICD-10-PCS; CPT 52276; principal; 2023-03-19 08:40)
DX: N40.1 Benign prostatic hyperplasia with lower urinary tract symptoms (principal); I27.20 Pulmonary hypertension, unspecified; I50.22 Chronic systolic (congestive) heart failure; I11.0 Hypertensive heart disease with heart failure; I48.3 Typical atrial flutter; R31.21 Asymptomatic microscopic hematuria; N35.013 Post-traumatic anterior urethral stricture; Z87.891 Personal history of nicotine dependence; I44.7 Left bundle-branch block, unspecified; F32.A Depression, unspecified; Z86.16 Personal history of COVID-19; D64.9 Anemia, unspecified; E78.5 Hyperlipidemia, unspecified; E66.9 Obesity, unspecified; Z79.01 Long term (current) use of anticoagulants; Z79.899 Other long term (current) drug therapy; M54.14 Radiculopathy, thoracic region; M99.01 Segmental and somatic dysfunction of cervical region; M99.03 Segmental and somatic dysfunction of lumbar region; M99.05 Segmental and somatic dysfunction of pelvic region; M99.02 Segmental and somatic dysfunction of thoracic region; M19.90 Unspecified osteoarthritis, unspecified site
CPT/HCPCS: 52290; 00910; 36415; 80053; 82306; 84443; 84550; 85025; J7120; J2405

== ENCOUNTER → 2023-07-23 | Outpatient (CLI) | payer MEDICARE, BC, SELFPAY ==
--- OUTSIDE RECORDS SUMMARY | 2023-07-23 11:15 | XMS RPT_ITS | CCD ---
Author Name Unknown Address [address] [place] [address] [address] [place] [address] Organization [facility] Care Team Providers Care [employer] Professor Name Role Phone RANDY WALKER Primary Care Unavailable KASSIDY PARRY Attending Unavailable KASSIDY PARRY Admitting Unavailable Results Test Name Value Interpretation Reference Range Facil ity Encounters Encounter Date Encounter Type Care Provider Facility Start: 08-03-2020 End: 08-03-2020 [facility] Facility:[facility] Payers Date Payer Category Payer Unknown [id number] 2020 Medicare [id number] 1945 Unknown [id number] Clinical Note 07-10-2020 Note Date & Type Note Facility 07-10-2020 Note Patient Outreach ([facility]) ANTOINE PEREZ ([id number]) 1945 M Date Time Provider Department 07/10/20 RENZO DÍAZ During your visit today, we recorded the following information about you: Allergies As of Date: 07/10/2020 Noted Allergy Reaction SULFA (SULFONAMIDE ANTIBIOTICS) 02/06/2012 4 - Hives Comments: childhood Date Reviewed: 10/12/2019 Reviewed by: Jeferson Chirinos Ma - Fully Assessed Order(s):SARS-COVID VACCINE 1ST DOSE APPT [[id number]] Order #: [id number] FUTURE Prescriptions as of 07/10/2020 Sig: MELOXICAM 15 MG TABLET Take 15 mg by mouth once jessica* HYDROCHLOROTHIAZIDE 12.5 MG T* Take 12.5 mg by mouth once da* LOSARTAN 50 MG TABLET Take 50 mg by mouth once jessica* TAMSULOSIN 0.4 MG CAPSULE Take 0.4 mg by mouth once ivana* VITAMIN D3 ORAL Take 5,000 Units by mouth. LACTOBACILLUS RHAMNOSUS GG 10* Take 1 capsule by mouth three* Patient taking differently: Take 1 capsule by mouth once * BEE POLLEN ORAL Take 1,000 mg by mouth once d* COSAMIN DS ORAL Take by mouth once daily. ALLOPURINOL 300 MG TABLET Take by mouth once daily. * PRAVASTATIN 40 MG TABLET Take 40 mg by mouth every etsephania* Problem List As Of Date 07/10/2020 Noted Resolved Personal history of colonic polyps [Z86.010] 04/01/2013 HTN (hypertension) [I10] 05/25/2015 More... Pure hypercholesterolemia [E78.00] 05/25/2015 More... 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 Gout of ankle [M10.9] 05/25/2015 More... Diverticulosis of large intestine [K57.30] 05/25/2015 More... Primary osteoarthritis of left knee [M17.12] 06/29/2015 Urinary frequency [R35.0] 06/04/2019 More... Former smoker [Z87.891] 06/04/2019 More... Primary osteoarthritis of right knee [M17.11] 06/04/2019 Arthritis of knee [M17.10] 06/18/2019 06/18/2019 S/P total knee arthroplasty, right [Z96.651] 07/21/2019 Letter Text Encounter Status:Closed by VIRI AGUAYOUSECorina on 07/13/20 [facility] Summary Purpose Family History No Family History Records FoundNo Family History Records FoundNo Family History Records Found Advance Directives No Advanced Directives Records FoundNo Advanced Directives Records FoundNo Advanced Directives Records Found Additional Source Comments (unrecognized sect ion and content) No Status Records FoundNo Status Records FoundNo Status Records Found INFORMATION SOURCE (unrecogn ized section and content) DATE CREATED AUTHOR AUTHOR'S JEREMY ATION 05/06/2021 [facility] DATE CREATED AUTHOR AUTHOR'S JEREMY ATION 06/16/2021 [facility] FOR RECORDS PERTAINING TO PATIENTS WHO ARE OR HAVE BEEN ENROLLED IN A CHEMICAL DEPENDENCY/SUBSTANCEABUSE PROGRAM, SOME INFORMATION MAY BE OMITTED. This clinical summary was aggregated from multiple sources. Caution should be exercised in using it in the provision of clinical care. This summary normalizes information from multiple sources, and as a consequence, information in this document may materially change the coding, format and clinical context of patient data. In addition, data may be omitted in some cases. CLINICAL DECISIONS SHOULD BE BASED ON THE PRIMARY CLINICAL RECORDS. [employer] provides no warranty or guarantee of the accuracy or completeness of information in this document.
== END | disposition home or self-care (01) ==
LOC: PSN 10:31
PROVIDERS: PCP Family Medicine Geriatric Medicine; Referring Provider Nurse Practitioner Family; Visit Provider Nurse Practitioner Family
DX: Z79.899 Other long term (current) drug therapy (principal)
CPT/HCPCS: 94060; 94726; 94729

== ENCOUNTER → 2023-09-09 | Outpatient (CLI) | payer MEDICARE, BC, SELFPAY ==
[2023-09-09 14:50] LABS: Absolute Lymphocyte Count 1.41 X10^3/uL (0.83-4.51); Absolute Neutrophil Count 3.3 X10^3/uL (2.0-7.7); Basophil# 0.02 X10^3/uL; Basophil% 0.3 % (0-1); Eosinophil# 0.19 X10^3/uL; Eosinophils% 3.3 % (0-5); Hematocrit 40.1 % (40-54); Hemoglobin 12.8 g/dL (13.0-16.5); Lymphocyte # 1.41 X10^3/ul (0.83-4.51); Lymphocyte % 24.4 % (19-41); Mean Corp Hgb Conc 31.9 g/dL (32-36); Mean Corpuscular Hgb 32.2 pg (27.0-32.0); Mean Platelet Vol. 12.8 fl (6.2-12.0); Monocyte# 0.87 X10^3/uL; NRBC Flagged by Analyzer 0 % (0-5); Neutrophil # 3.26 X10^3/uL (2.7-7.7); Neutrophil % 56.3 % (47-70); Platelet Count 135 K/mm3 (150-450); RBC Distribution Width CV 13.9 % (11.6-14.6); RBC Distribution Width SD 51.6 fl (35.1-43.9); Red Blood Count 3.97 M/mm3 (4.6-6.2); White Blood Count 5.8 K/mm3 (4.4-11.0)
[2023-09-09 15:13] LABS: AST(SGOT) 14 U/L (15-37); Alanine Aminotransfer ALT/SGPT 24 U/L (16-61); Albumin, Serum 3.7 g/dL (3.2-5.0); Alkaline Phosphatase 75 U/L (45-117); Anion Gap 6 (5-15); BUN 20 mg/dL (7-18); BUN/Creat Ratio 22.3 RATIO (10-20); Chloride 103 mmol/L (98-107); EST Glomerular Filtration Rate 87 mL/min (>60); Est Glom Filt Rate - Afr Amer 105 mL/min (>60); Globulin 3.7 g/dL (2.2-4.2); Glucose 135 mg/dL (74-106); Potassium 3.3 mmol/L (3.5-5.1); Protein, Total 7.4 g/dL (6.4-8.2); Sodium Level 138 mmol/L (136-145); Thyroid Stim Hormone (TSH) 0.63 uIU/mL (0.358-3.74); Uric Acid 5.2 mg/dL (3.5-7.2)
== END | disposition home or self-care (01) ==
LOC: POLAB3 13:33
PROVIDERS: PCP Family Medicine Geriatric Medicine; Visit Provider Family Medicine Geriatric Medicine
DX: I10 Essential (primary) hypertension (principal); M10.9 Gout, unspecified; E55.9 Vitamin D deficiency, unspecified
CPT/HCPCS: 36415; 80053; 82306; 84443; 84550; 85025

== ENCOUNTER → 2023-09-17 | Outpatient (CLI) | payer MEDICARE, BC, SELFPAY ==
[2023-09-17 12:13] LABS: Anion Gap 5 (5-15); BUN 24 mg/dL (7-18); BUN/Creat Ratio 33.6 RATIO (10-20); Calcium,Total 9.1 mg/dL (8.5-10.1); Chloride 108 mmol/L (98-107); Creatinine, Serum 0.71 mg/dL (0.70-1.30); EST Glomerular Filtration Rate 113 mL/min (>60); Est Glom Filt Rate - Afr Amer 137 mL/min (>60); Glucose 95 mg/dL (74-106); Potassium 4.3 mmol/L (3.5-5.1); Sodium Level 140 mmol/L (136-145)
== END | disposition home or self-care (01) ==
LOC: POLAB3 11:05
PROVIDERS: PCP Family Medicine Geriatric Medicine; Visit Provider Family Medicine Geriatric Medicine
DX: E78.5 Hyperlipidemia, unspecified (principal)
CPT/HCPCS: 36415; 80048

== ENCOUNTER → 2023-11-25 | Outpatient (CLI) | payer MEDICARE, BC, SELFPAY ==
[2023-11-25 14:45] LABS: PSA,Total - Annual Screen 2.82 ng/mL (0.00-4.00)
== END | disposition home or self-care (01) ==
LOC: LAB 13:56
PROVIDERS: PCP Family Medicine Geriatric Medicine; Referring Provider Nurse Practitioner; Visit Provider Nurse Practitioner
DX: Z12.5 Encounter for screening for malignant neoplasm of prostate (principal)
CPT/HCPCS: 36415; 84153; G0103

== ENCOUNTER → 2024-03-09 | Outpatient (CLI) | payer MEDICARE, BC, SELFPAY ==
--- NOTE | 2024-03-09 14:23 | RAD_ITS ---
STUDY: X-RAY CHEST REASON FOR EXAM: Male, 78 years old. sob TECHNIQUE: PA and lateral views of the chest. COMPARISON: 06/02/2020 FINDINGS: The lungs are clear and expanded. There is no demonstrated pleural abnormality. Normal size heart. Normal mediastinum and preethi. Normal visualized pulmonary arteries. Normal visualized aortic arch and descending thoracic aorta. Normal visualized thoracic spine. Normal visualized ribs, clavicles, and shoulders. There is no demonstrated abnormality of the visualized soft tissue structures of the upper abdomen. RAD/Chest PA and Lateral IMPRESSION: Normal x-ray examination of the chest. Electronically Signed: Fredy Peres MD at 11:28 EDT ,
[2024-03-09 15:49] LABS: BNP,B-Type NATRIURETIC PEPTIDE 44.8 pg/mL (0-100)
[2024-03-09 16:04] LABS: AST(SGOT) 14 U/L (15-37); Alanine Aminotransfer ALT/SGPT 25 U/L (16-61); Albumin, Serum 3.8 g/dL (3.2-5.0); Alkaline Phosphatase 87 U/L (45-117); Anion Gap 6 (5-15); BUN 29 mg/dL (7-18); BUN/Creat Ratio 33.7 RATIO (10-20); Calcium,Total 9.4 mg/dL (8.5-10.1); Chloride 106 mmol/L (98-107); Cholesterol 154 mg/dL (200); Creatinine, Serum 0.86 mg/dL (0.70-1.30); EST Glomerular Filtration Rate 91 mL/min (>60); Est Glom Filt Rate - Afr Amer 110 mL/min (>60); Globulin 3.6 g/dL (2.2-4.2); Glucose 94 mg/dL (74-106); High Density Lipoprotein 57 mg/dL; Protein, Total 7.4 g/dL (6.4-8.2); Sodium Level 140 mmol/L (136-145); Thyroid Stim Hormone (TSH) 0.717 uIU/mL (0.358-3.740); Triglycerides 133 mg/dL; Very Low Density Lipoprotein 27 mg/dL (5-40)
== END | disposition home or self-care (01) ==
LOC: RAD 13:49
PROVIDERS: PCP Family Medicine Geriatric Medicine; Referring Provider Internal Medicine Cardiovascular Disease; Visit Provider Internal Medicine Cardiovascular Disease
DX: Z79.899 Other long term (current) drug therapy (principal); R06.02 Shortness of breath
CPT/HCPCS: 36415; 71046; 80048; 80061; 80076; 83880; 84443

== ENCOUNTER → 2024-03-15 | Outpatient (CLI) | payer MEDICARE, BC, SELFPAY ==
[2024-03-15 15:37] LABS: Absolute Neutrophil Count 5.8 X10^3/uL (2.0-7.7); Basophil# 0.03 X10^3/uL; Basophil% 0.3 % (0-1); Eosinophil# 0.29 X10^3/uL; Eosinophils% 3.3 % (0-5); Hematocrit 39.2 % (40-54); Hemoglobin 12.8 g/dL (13.0-16.5); Lymphocyte % 21.4 % (19-41); Mean Corp Hgb Conc 32.7 g/dL (32-36); Mean Corpuscular Hgb 33.1 pg (27.0-32.0); Mean Corpuscular Volume 101.3 fL (80-94); Mean Platelet Vol. 13.1 fl (6.2-12.0); NRBC Flagged by Analyzer 0 % (0-5); Neutrophil # 5.76 X10^3/uL (2.7-7.7); Platelet Count 161 K/mm3 (150-450); RBC Distribution Width CV 13.5 % (11.6-14.6); RBC Distribution Width SD 50.7 fl (35.1-43.9); Red Blood Count 3.87 M/mm3 (4.6-6.2); White Blood Count 8.9 K/mm3 (4.4-11.0)
[2024-03-15 16:07] LABS: Vitamin D,25 Hydroxy 47.9 ng/mL
[2024-03-15 16:13] LABS: AST(SGOT) 17 U/L (15-37); Alanine Aminotransfer ALT/SGPT 29 U/L (16-61); Albumin, Serum 3.8 g/dL (3.2-5.0); Alkaline Phosphatase 80 U/L (45-117); Anion Gap 8 (5-15); BUN 21 mg/dL (7-18); BUN/Creat Ratio 27.3 RATIO (10-20); Calcium,Total 9.3 mg/dL (8.5-10.1); Chloride 105 mmol/L (98-107); Creatinine, Serum 0.77 mg/dL (0.70-1.30); EST Glomerular Filtration Rate 104 mL/min (>60); Est Glom Filt Rate - Afr Amer 125 mL/min (>60); Globulin 3.7 g/dL (2.2-4.2); Glucose 87 mg/dL (74-106); Potassium 4.1 mmol/L (3.5-5.1); Protein, Total 7.5 g/dL (6.4-8.2); Sodium Level 142 mmol/L (136-145); Thyroid Stim Hormone (TSH) 0.955 uIU/mL (0.358-3.740); Uric Acid 4.9 mg/dL (3.5-7.2)
== END | disposition home or self-care (01) ==
LOC: LAB 13:47
PROVIDERS: PCP Family Medicine Geriatric Medicine; Referring Provider Family Medicine Geriatric Medicine; Visit Provider Family Medicine Geriatric Medicine
DX: I10 Essential (primary) hypertension (principal); M10.9 Gout, unspecified; E55.9 Vitamin D deficiency, unspecified
CPT/HCPCS: 36415; 80053; 82306; 84443; 84550; 85025

== ENCOUNTER → 2024-03-19 | Outpatient (CLI) | payer MEDICARE, BC, SELFPAY ==
--- NOTE | 2024-03-19 10:20 | US_ITS ---
INDICATION: LIPOMA, LEFT LOWER BACK EXAMINATION: Ultrasound US Soft Tissue Back TECHNIQUE: Juan scale and color doppler imaging was performed of the left lower back. COMPARISON: No relevant prior comparison study available FINDINGS: LIVER: Targeted sonographic evaluation of the region of concern shows a well-circumscribed isoechoic mass which is wider than tall. This measures 11.3 x 7 x 3.8 cm. Minimal internal Doppler vascularity. US/Abdomen Limited IMPRESSION: Nonaggressive appearing mass in the region of concern, consistent with a lipoma. Electronically Signed: Maxx James MD at 1:33 EDT ,
== END | disposition home or self-care (01) ==
LOC: US 10:18
PROVIDERS: PCP Family Medicine Geriatric Medicine; Referring Provider Family Medicine Geriatric Medicine; Visit Provider Family Medicine Geriatric Medicine
DX: R59.0 Localized enlarged lymph nodes (principal); D17.9 Benign lipomatous neoplasm, unspecified
CPT/HCPCS: 76705

== ENCOUNTER → 2024-04-13 | Outpatient (CLI) | payer MEDICARE, BC, SELFPAY ==
--- NOTE | 2024-04-13 16:45 | MRI_ITS ---
STUDY: MRI ORBITS WITH AND WITHOUT CONTRAST REASON FOR EXAM: Male, 78 years old. submandibular lymphadenopathy, SOFT TISSUE MASS X2OYRS RECENTLY STARTED GROWING, MASS MARKED WITH BB TECHNIQUE: Standardized fat and water weighted pulse sequences were obtained in all 3 orthogonal planes, pre-and post contrast administration. IV 20ML CLARISCAN was administered for the contrast portion of the examination. COMPARISON: None. FINDINGS: Normal bilateral globes. Normal bilateral optic nerve sheath complexes and optic nerves. Normal bilateral intraconal and extraconal spaces. Normal bilateral extraocular muscles. Normal optic chiasm and post-chiasmatic tracts. Normal sella turcica, pituitary gland, infundibular stalk, and hypothalamus. Normal bilateral cavernous sinuses. Normal tectal plate and pineal gland. Normal flow voids within the major intracranial circulation suggesting patency by spin echo criteria. Normal size of the ventricles and extra-axial spaces for the patient''s age. Normal white matter tracts of the supratentorial brain. Normal bilateral basal ganglia. Normal thalami. There is no extra-axial fluid accumulation. Normal midbrain, brittaney and medulla. Normal cerebellum. Normal basal cisterns. At the site of the clinically palpable mass, there is a rounded mass density measuring 2.4 x 2.8 x 2.25 cm in the subcutaneous fat just lateral to the platysma demonstrating intermediate signal intensity on T1 similar to that a normal muscle, heterogeneous intermediate and high signal on T2 as well as the STIR imaging sequence and does not enhance following contrast administration MRI/Orbit Face Neck W/WO Contrast IMPRESSION: Nonspecific nonenhancing solid nodule in the subcutaneous fat of the right lateral neck without evidence for enhancement of uncertain etiology. No evidence, adenopathy or other significant abnormality.. Sonographic or CT guided biopsy would be helpful for further evaluation Electronically Signed: Aries Donis MD at 16:30 EST ,
== END | disposition home or self-care (01) ==
LOC: MRI 15:49
PROVIDERS: PCP Family Medicine Geriatric Medicine; Referring Provider Family Medicine Geriatric Medicine; Visit Provider Family Medicine Geriatric Medicine
DX: R59.0 Localized enlarged lymph nodes (principal); D17.9 Benign lipomatous neoplasm, unspecified
CPT/HCPCS: 70543; A9575

== ENCOUNTER 2024-05-20 07:51 | Outpatient (CLI) | payer MEDICARE, BC, SELFPAY ==
[2024-05-20] VITALS (12 sets, daily range): BP systolic 102–155; BP diastolic 43–74; PULSE 44–57; RESP 14–19; TEMP 36.4; O2SAT 94–97; BMI 36.5
[2024-05-20 08:14] LABS: Platelet Count 149 K/mm3 (150-450)
[2024-05-20 08:27] LABS: Prothrombin Time (Protime)PT. 13.7 SECONDS (11.7-14.9)
[2024-05-20 08:28] LABS: Partial Thromboplast Time 33.6 Seconds (24.1-36.2)
[2024-05-20] MEDS: Midazolam 2 MG/2 ML Syringe IV ×2 (09:21→09:34)
[2024-05-20] MEDS: 0.9% Saline Lock 10 ML Syringe IV ×2 (09:23→09:26)
[2024-05-20] MEDS: fentaNYL 100 MCG/2 ML Ampul IV ×2 (09:24→09:39)
--- NOTE | 2024-05-20 09:30 | ASPIGT_PTH ---
PATIENT: ANTOINE PEREZ LOC: CT U#:[id number] AGE/SX: 78/M ROOM: RE05/20/[address]: Dr. Vinod Kirby MD : 1945 BED: DIS: 05/20/2024 SPEC #: [id number] RECD: 05/20/24 11:09 STATUS: KAYLENE REDelmy #: [id number] DON: 05/20/24 09:[address]: Vinod Kirby Chi DEPT: SURGICAL PATHOLOGY RECD BY: Brooklyn Neff ENTERED: 05/20/24 11:09 SP TYPE: ASP RAD OT DR: Sharri Cisneros Tissues: Neck, NOS Procedures: FNA Specimen Adequacy Special Stain Group II Surgery Specimen Level IV Imprint (control) HEADER OPERATION: CT guided right neck mass biopsy PRE-OP DIAGNOSIS: Right lateral neck mass TISSUE SUBMITTED: 18 gauge x 5 cores MICROSCOPIC DIAGNOSIS Right lateral neck, core biopsy: Negative for malignant cells. See comment. SJ.mr 05/21/2024 COMMENT The specimen is evaluated at the time of biopsy by Dr. Joe. Immediate Evaluation = Negative for malignant cells. Acellular specimen. Reported to Ms. Fitzpatrick at 9:57am on 05/20/2024. The specimen is acellular. Re-biopsy of the lesion is suggested, if clinically indicated. Correlation with clinical findings and appropriate follow up are necessary. MICROSCOPIC DESCRIPTION Slides are reviewed. GROSS DESCRIPTION Received is one container labeled with the patient's name and not further designated. The specimen consists of fragments of gonzalez-brown material. The specimen is submitted entirely for cell block preparation. Two touch imprints are prepared at the time of core biopsy. 05/20/2024 TC: Cannot code CPT:86845,43261 ADDENDUM ADDENDUM ADDENDUM ADDENDUM ADDENDUM 05/25/2024 12:55 ADDENDUM 05/25/2024 12:55 ADDENDUM 05/25/2024 12:55 ADDENDUM 05/25/2024 12:55 ADDENDUM 05/25/2024 12:55 Portion of the specimen is saved for flow cytometry study and is submitted in cassette 2 and shows skin with dermal chronic inflammation. SJ.mr 05/25/2024
--- NOTE | 2024-05-20 09:30 | FLU_PTH ---
PATIENT: ANTOINE PEREZ LOC: CT U#:[id number] AGE/SX: 78/M ROOM: RE05/20/[address]: Dr. Vinod Kirby MD : 1945 BED: DIS: 05/20/2024 SPEC #: [id number] RECD: 05/20/24 11:09 STATUS: KAYLENE JEREMIAS #: [id number] DON: 05/20/24 09:[address]: Vinod Kirby Chi DEPT: CYTOLOGY RECD BY: Brooklyn Neff ENTERED: 05/20/24 11:11 SP TYPE: Fluid OTHR DR: Sharri Cisneros Tissues: Neck, NOS Procedures: Special Stain Group II Surgery Specimen Level IV Cytospin Fluid HEADER OPERATION:CT guided right neck mass biopsy PRE-OP DIAGNOSIS: Right lateral neck mass TISSUE SUBMITTED: 18 gauge x 5 cores DIAGNOSIS CYTOLOGY Right lateral neck mass, fine needle aspiration (cytopsins and cellblock): Bloody specimen, negative for malignant cells. See comment. mr 05/21/2024 COMMENT Re-biopsy of the lesion is suggested, if clinically indicated. Please also make reference to additional specimen [id number]. Correlation with clinical, radilogic findings and appropriate follow up are necessary CYTOLOGY STUDY Slides are reviewed. CYTOLOGY GROSS Received is 0.2 ml of red cloudy fluid labeled with the patient's name and and designated per the requisition as Neck mass biopsy. Submitted for cytology preparation including cell block. Mr 05/20/2024 TC: Can not code CPT: 09487,54487
[2024-05-20] MEDS: Lidocaine 2% (20 ml mdv) 20 ML Vial INFILT (09:33)
--- NOTE | 2024-05-20 09:56 | PCM.OPRPT ---
Problems Associated Problem List Diagnoses (1) Neck swelling: Procedures Radiology Radiology CT Procedures: 10210 Biopsy Lymph Node/gland/etc Multi Select Codes Radiology Radiology CT Procedures: 20892-36 CT guidance parenchymal tissue Operative Report (Standard) Operative Information Date of Procedure: 05/20/24 Pre-Operative Diagnosis: Neck swelling Post-Operative Diagnosis: Neck swelling Surgery/Procedure Performed: CT-guided biopsy strawhat blocking operator: No Type of Anesthesia: IV Sedation and Local Procedure Start Time: 09:21 Procedure Stop Time: 09:48 Select all DRAINS/GRAFTS/IMPLANTS that apply: None Estimated Blood Loss: 0 Specimen collected: Yes Description of specimen(s) removed: 4 core biopsies and minimal fluid aspirate sent to lab Description of surgery: PROCEDURE: CT GUIDED CORE LYMPH NODE BIOPSY ORDERING PROVIDER: Dr Kirby INDICATION: male, 78 years old. neck swelling PROVIDER: Linda Perez CNP CONSENT: Written informed consent was obtained having explained the risks, benefits and alternatives in detail with the patient who accepted the risks and agreed to proceed. Laboratory review and clinical assessment was performed. PRE-PROCEDURE SEDATION ASSESSMENT: Current history and physical dictated by referring physician and reviewed. No clinical changes since date of exam. Patient has a Mallampati Score of Class 3 and ASA Class of 2. PROCEDURAL SEDATION PROTOCOL: The Drugs used were: 2 mg Versed, IV, and 100 mcg Fentanyl, IV. The sedation time was: starting at 0921 and terminated at 0948. The procedural sedation protocol was independently monitored by the department nurse. RADIATION DOSAGE (If Supplied By Facility): CTDIvol = 16.14 mGy, DLP = 264.63 mGycm Individualized dose optimization techniques were used for this CT. TECHNIQUE The patient was placed in a supine position. A noncontrast CT was performed to localize the lesion in the right neck. The skin surface was prepped with chlorhexidine and draped in a sterile fashion. 2% lidocaine was used for local anesthesia. Using CT guidance, a 18-gauge coaxial biopsy device was advanced to the periphery of the lesion. A total of 4 core specimens were obtained. Specimens were microscopically reviewed by pathology in the CT suite and placed in formalin solution, as well as RPMI. The biopsy needle was removed and a sterile dressing was applied to the biopsy site. The patient tolerated the procedure well without adverse event. A negative biopsy does not exclude malignancy. Further imaging or clinical followup based on patient condition and degree of clinical suspicion for malignancy. Suggest rebiopsy, if biopsy results do not match with clinical scenario. IMPRESSION: CT directed core needle biopsy of the right neck using CT image guidance with image documentation as described. Pathology results are pending. Procedural Sedation protocol utilized with independent monitoring by the department nurse. Surgical Findings: none Complications Complications: No
== END 2024-05-20 23:59 | disposition home or self-care (01) ==
PROVIDERS: Nurse Practitioner Acute Care; PCP Family Medicine Geriatric Medicine; Referring Provider Family Medicine Geriatric Medicine; Visit Provider Family Medicine Geriatric Medicine
DX: Z01.818 Encounter for other preprocedural examination (principal); I48.91 Unspecified atrial fibrillation; R22.1 Localized swelling, mass and lump, neck
CPT/HCPCS: 20206; 36415; 77012; 85049; 85610; 85730; 88108; 88172; 88305; 88313; 99156; A4216

== ENCOUNTER 2024-05-23 21:05 | Emergency (ER) | payer MEDICARE, BC, SELFPAY ==
[2024-05-23 21:06] VITALS: BP 166/72; PULSE 75; RESP 16; TEMP 36.8; O2SAT 97; BMI 37.6
--- NOTE | 2024-05-23 21:49 | EX.ED.DYSGE1 ---
HPI History of Present Illness Chief Complaint: Cellulitis Narrative Narrative: 78-year-old male past medical history of being on Eliquis states that for approximately 20 years he has had a lump or a ball on the right side of his neck. His primary care provider, Dr. Kirby, ordered a biopsy which she had performed on , approximately 4 days ago. He states it was CT-guided and done by special procedures here. He does not have the results back as of yet. Over the last few days, he has noticed increased swelling of that area and redness. Today he awoke with a small amount of drainage that was possibly purulent on his shirt. He denies any fevers or chills, no difficulty swallowing, no exacerbating or alleviating factors. His was concerned that this was an abscess that was getting ready to burst. [facility] Medical History Wears hearing aid Depression Alcohol use Bladder disease History of diverticulitis Former smoker Varicose vein of leg History of stress test History of echocardiogram History of Holter monitoring Cardiology follow-up encounter History of atrial fibrillation Bradycardia Typical atrial flutter Left bundle branch block (LBBB) TIMOTHY (obstructive sleep apnea) BPH (benign prostatic hyperplasia) Back pain Thoracic neuritis Segmental and somatic dysfunction of pelvic region Segmental and somatic dysfunction of lumbar region Segmental and somatic dysfunction of thoracic region Fatigue Chronic systolic (congestive) heart failure Obesity Non-ischemic cardiomyopathy Hyperlipidemia Segmental and somatic dysfunction of thoracic region Acute cervical sprain Segmental and somatic dysfunction of cervical region Osteoarthritis Arthritis Benign essential hypertension Home Medications ?Medication ?Instructions ?Recorded ?Last Taken ?Type pravastatin 40 mg tablet 40 mg PO QHS cholesterol 03/02/18 01/07/22 History tamsulosin 0.4 mg capsule 0.4 mg PO DAILY prostate 03/05/18 01/08/22 History allopurinol 300 mg tablet 300 mg PO DAILY gout 01/05/20 01/08/22 History cholecalciferol (vitamin D3) 125 125 mcg PO DAILY 07/19/20 01/08/22 History mcg (5,000 unit) capsule citalopram 10 mg tablet 10 mg PO DAILY 07/19/20 01/08/22 History lactobacillus combination no.8 3 1 cell PO QHS 11/17/20 01/07/22 History billion cell capsule metronidazole 0.75 % topical gel 1 applic topical DAILY PRN SKIN 02/27/21 Unknown History losartan 50 mg tablet 50 mg PO BID bp #180 tabs 11/01/21 03/19/23 Rx furosemide 40 mg tablet See Rx Instructions .Route 03/17/23 Unknown Rx .COMPLEX #90 tabs apixaban 5 mg tablet (Eliquis) 5 mg PO BID 07/14/23 Unknown History amiodarone 200 mg tablet 100 mg (1/2 x 200 mg) PO DAILY #45 07/24/23 Unknown Rx tabs acetaminophen 650 mg 650 mg PO Q12H PRN fever or pain 03/09/24 Unknown History tablet,extended release (Tylenol Arthritis Pain) metoprolol tartrate 25 mg tablet 25 mg PO BID #180 tabs 05/10/24 Unknown Rx cephalexin 500 mg capsule 500 mg PO Q6 #40 CAPSULES 05/23/24 Unknown Rx Allergy/AdvReac Type Severity Reaction Status Date / Time Sulfa (Sulfonamide Allergy Intermediate Hives Verified 05/23/24 21:08 Antibiotics) Family History Son Asthma Surgical History History of urethrotomy (~03/2023) Hx of arthroscopy of knee Hx of arthroplasty Hx of colonoscopy History of radiofrequency ablation procedure for cardiac arrhythmia (08/03/20) History of cardioversion (03/27/20) History of cataract surgery History of laparoscopic cholecystectomy History of colectomy History of knee surgery Social History Smoking Status: Former smoker how long ago did patient quit smokin years ago alcohol intake: current alcohol intake frequency: a few times a week substance use type: does not use ROS ROS ED ROS Narrative Review of systems positive for redness and increased swelling to biopsy site of right neck. No difficulty swallowing, no fevers or chills, no nausea or vomiting. No exacerbating or alleviating factors. EXAM Physical Exam Narrative Exam Narrative: Afebrile. Vital signs noted. Regular rate and rhythm. Lungs clear to auscultation bilaterally. Focused examination of the neck does show a cellulitic area and a larger indurated area without fluctuance. There is small eschar noted. Airway patent. No drooling or trismus. Neck soft and supple otherwise. Const Vital Signs: 05/23/24 21:06 Temperature 98.2 F Temperature Source Oral Pulse Rate 75 Respiratory Rate 16 Blood Pressure 166/72 H Blood Pressure Mean 103 Pulse Ox 97 Oxygen Delivery Method Room Air MDM MDM MDM Narrative Medical decision making narrative: Differential diagnosis includes but not limited to postbiopsy hematoma as the patient is on Eliquis versus abscess versus cellulitis versus enlarged lymph node. I do think it is probably too large to be a lymph node. It may be a combination of both infection and hematoma or seroma. I reviewed his prior records. There are no results of the biopsy. However, was noted that he did have the CT-guided biopsy performed. In discussion with the patient, he is not having any difficulty swallowing. We discussed the possibility of hematoma and low likelihood that this is abscess. I discussed not wanting to open up the area which could cause bleeding and an open wound in the event that this is more of a hematoma. Additionally, he declined needle aspiration. The eschar had been unroofed and there was not a significant amount of purulent drainage noted. Instead, he will be treated as a cellulitis. He was given his first dose of Keflex here and prescription written to take 4 times a day for the next 10 days. He will follow-up with his primary care provider. Return instructions to the emergency department were reviewed. Patient and are agreeable to the plan and he is motivated for discharge. Disposition is discharged home in stable condition. Discharge Plan Triage Chief Complaint: Cellulitis ED Provider: Torrey Leal Dx/Rx/DC Orders Clinical Impression: Neck swelling, Cellulitis, Hematoma Instructions: ED Cellulitis Prescriptions: New cephalexin 500 mg capsule 500 mg PO Q6 Qty: 40 0RF No Action pravastatin 40 mg tablet 40 mg PO QHS citalopram 10 mg tablet 10 mg PO DAILY cholecalciferol (vitamin D3) 125 mcg (5,000 unit) capsule 125 mcg PO DAILY lactobacillus combination no.8 3 billion cell capsule 1 cell PO QHS acetaminophen [Tylenol Arthritis Pain] 650 mg tablet extended release 650 mg PO Q12H PRN (Reason: fever or pain) metronidazole 0.75 % gel 1 applic topical DAILY PRN (Reason: SKIN) Eliquis 5 mg tablet 5 mg PO BID Patient Comments: TAKE 1 TABLET BY MOUTH TWICE A DAY tamsulosin 0.4 MG capsule 0.4 mg PO DAILY allopurinol 300 MG tablet 300 mg PO DAILY losartan 50 mg tablet 50 mg PO BID Qty: 180 3RF furosemide 40 mg tablet See Rx Instructions .ROUTE .COMPLEX Qty: 90 3RF Dose Instruction: TAKE 1 TABLET BY MOUTH EVERY DAY Rx Instructions: TAKE 1 TABLET BY MOUTH EVERY DAY amiodarone 200 mg tablet 100 mg PO DAILY Qty: 45 3RF metoprolol tartrate 25 mg tablet 25 mg PO BID Qty: 180 3RF Primary Care Provider: Vinod Kirby Chi Referrals: Vinod Kirby Chi, MD [Primary Care Provider] - 3-5 Days if not improving Activity Restrictions/Additional Instructions: Take antibiotics as directed. Return with difficulty swallowing, fever, new or worsening symptoms. Follow-up with your primary care provider in the next 3 to 5 days if not improving. Print Language: Nepali Disposition Disposition: Home, Self Care
[2024-05-23 22:06] VITALS: BP 148/74; PULSE 65; RESP 16; TEMP 36.1; O2SAT 97
[2024-05-23] MEDS: Cephalexin 250 MG Capsule 500 MG PO (22:11)
--- NOTE | 2024-05-24 11:54 | NURSING ---
Pt called in to [facility] to inform of infection at biopsy site. Pt was given antibiotics in ED on 05/23/24 and told to follow up with PCP in 3-5 days if symptoms of infection had not gotten better. LYDIA Cline reminded pt that infection is one of the risks that was discussed prior to the procedure with ALBERTINA Gottlieb. Pt was understanding and stated he just wanted us to be aware. LYDIA Cline thanked pt and reinforced to see Dr. Kirby if he isn't better in the coming days.
== END 2024-05-23 22:33 | disposition home or self-care (01) ==
LOC: ED 22:05
PROVIDERS: Emergency Provider Emergency Medicine; PCP Family Medicine Geriatric Medicine; Visit Provider Emergency Medicine
DX: R22.1 Localized swelling, mass and lump, neck (principal); I50.22 Chronic systolic (congestive) heart failure; I11.0 Hypertensive heart disease with heart failure; I48.91 Unspecified atrial fibrillation; L03.221 Cellulitis of neck; Z87.891 Personal history of nicotine dependence; E78.5 Hyperlipidemia, unspecified; Z79.01 Long term (current) use of anticoagulants; N40.0 Benign prostatic hyperplasia without lower urinary tract symptoms; Z79.899 Other long term (current) drug therapy; F32.A Depression, unspecified; Z90.49 Acquired absence of other specified parts of digestive tract; S10.83XA Contusion of other specified part of neck, initial encounter
CPT/HCPCS: 99282

== ENCOUNTER 2024-05-26 12:53 | Inpatient (IN) | payer MEDICARE, BC, SELFPAY ==
[2024-05-26 12:55] VITALS: BP 154/88; PULSE 67; RESP 14; TEMP 37.2; O2SAT 98; BMI 37.6
--- NOTE | 2024-05-26 13:28 | EDS_ITS ---
HPI History of Present Illness Chief Complaint: Cellulitis Detail of Chief Complaint: Submental abscess Informant: patient Onset/Context/Timing Onset: Days Context: Gradual Onset Timing: Continuous Current Severity: Moderate Maximum Severity: Moderate Narrative Narrative: 78-year-old male history of A-fib on Eliquis. On May 20 he had a lymph node biopsy done. Interventional radiology. Patient subsequently developed cellulitis. Was placed on Keflex. He has been on Keflex for about 3 to 4 days. The swelling is now getting worse. He has pus draining from the wound. Prior similar symptoms: No Recent Illness/Hospitalization: No PFSH [facility] Medical History Wears hearing aid Depression Alcohol use Bladder disease History of diverticulitis Former smoker Varicose vein of leg History of stress test History of echocardiogram History of Holter monitoring Cardiology follow-up encounter History of atrial fibrillation Bradycardia Typical atrial flutter Left bundle branch block (LBBB) TIMOTHY (obstructive sleep apnea) BPH (benign prostatic hyperplasia) Back pain Thoracic neuritis Segmental and somatic dysfunction of pelvic region Segmental and somatic dysfunction of lumbar region Segmental and somatic dysfunction of thoracic region Fatigue Chronic systolic (congestive) heart failure Obesity Non-ischemic cardiomyopathy Hyperlipidemia Segmental and somatic dysfunction of thoracic region Acute cervical sprain Segmental and somatic dysfunction of cervical region Osteoarthritis Arthritis Benign essential hypertension Home Medications ?Medication ?Instructions ?Recorded ?Last Taken ?Type pravastatin 40 mg tablet 40 mg PO QHS cholesterol 03/02/18 01/07/22 History tamsulosin 0.4 mg capsule 0.4 mg PO DAILY prostate 03/05/18 01/08/22 History allopurinol 300 mg tablet 300 mg PO DAILY gout 01/05/20 01/08/22 History cholecalciferol (vitamin D3) 125 125 mcg PO DAILY 07/19/20 01/08/22 History mcg (5,000 unit) capsule citalopram 10 mg tablet 10 mg PO DAILY 07/19/20 01/08/22 History lactobacillus combination no.8 3 1 cell PO QHS 11/17/20 01/07/22 History billion cell capsule metronidazole 0.75 % topical gel 1 applic topical DAILY PRN SKIN 02/27/21 Unknown History losartan 50 mg tablet 50 mg PO BID bp #180 tabs 11/01/21 03/19/23 Rx furosemide 40 mg tablet See Rx Instructions .Route 03/17/23 Unknown Rx .COMPLEX #90 tabs apixaban 5 mg tablet (Eliquis) 5 mg PO BID 07/14/23 Unknown History amiodarone 200 mg tablet 100 mg (1/2 x 200 mg) PO DAILY #45 07/24/23 Unknown Rx tabs acetaminophen 650 mg 650 mg PO Q12H PRN fever or pain 03/09/24 Unknown History tablet,extended release (Tylenol Arthritis Pain) metoprolol tartrate 25 mg tablet 25 mg PO BID #180 tabs 05/10/24 Unknown Rx cephalexin 500 mg capsule 500 mg PO Q6 #40 CAPSULES 05/23/24 Unknown Rx Allergy/AdvReac Type Severity Reaction Status Date / Time Sulfa (Sulfonamide Allergy Intermediate Hives Verified 05/26/24 12:57 Antibiotics) Family History Son Asthma Surgical History History of urethrotomy (~03/2023) Hx of arthroscopy of knee Hx of arthroplasty Hx of colonoscopy History of radiofrequency ablation procedure for cardiac arrhythmia (08/03/20) History of cardioversion (03/27/20) History of cataract surgery History of laparoscopic cholecystectomy History of colectomy History of knee surgery Social History Smoking Status: Former smoker how long ago did patient quit smokin years ago alcohol intake: current alcohol intake frequency: a few times a week substance use type: does not use ROS ROS ED ROS Narrative Denies recent illness. Constitutional Constitutional ED: Denies chills or fever(s) Eyes Eyes: Denies blurry vision ENT ENT ED: Denies ear pain Cardiovascular Cardiovascular: Denies chest pain Respiratory/Chest Respiratory/Chest: Denies cough Gastrointestinal Gastrointestinal: Denies abdominal pain Genitourinary Genitourinary ED: Denies dysuria Musculoskeletal Musculoskeletal: Denies arthralgias Integumentary Reports abscess; Denies Abrasions Neurologic Neurologic: Denies headache(s) Psychiatric Psychiatric: Denies anxiety Endocrine Endocrinology: Denies cold intolerance Hematologic/Lymphatic Hematologic/Lymphatic: Reports none Allergic/Immunologic Allergic/Immunologic ED: Denies mouth swelling, tongue swelling or urticaria EXAM Physical Exam Narrative Exam Narrative: Well-appearing 78-year-old male. Vital signs are stable afebrile. He does not look septic toxic. He is in no distress. H EENT exam pupils round react light. Moist mucous membranes. No trouble swallowing or breathing. Neck is close jaw midline and right there is cellulitis and obvious abscess. Tender to palpation. I do not appreciate any obvious lymphadenopathy. This was a prior biopsy site. There is cellulitis approximately 2 inches in width by 4 inches in length of the anterior neck. Lungs clear to auscultation. Heart regular rhythm. Abdomen soft. Moving all 4 extremities. Neurologically is awake and alert. No focal motor deficits. Const Vital Signs: 05/26/24 12:55 05/26/24 15:13 05/26/24 16:17 Temperature 98.9 F 98.1 F Temperature Source Temporal Pulse Rate 67 50 L 57 L Respiratory Rate 14 18 18 Blood Pressure 154/88 H 138/65 H 145/100 H Blood Pressure Mean 110 89 115 Pulse Ox 98 98 97 Oxygen Delivery Method Room Air Room Air Positive well nourished and well developed; Negative for cachectic, contractures or unkempt General Appearance ED: well developed and NAD; Negative for unkempt, cachectic, contractures, cyanotic or diaphoretic Nutritional Appearance: Negative for cachectic HEENT Reports moist mucous membranes Negative for trauma or tenderness Eyes PERRL and EOMs intact bilaterally General Eye ED: Negative for pale conjunctiva or scleral icterus Neck no lymphadenopathy, supple and no JVD Neck Narrative: Cellulitis and abscess anterior neck. Tender to palpation. Saulo drainage of pus. General: Negative for tenderness Lymph Lymphatic: Negative for other Chest Wall inspection of chest normal and palpation of chest normal Resp normal respiratory effort and clear to auscultation bilaterally Effort and Inspection: Negative for retractions Auscultation: Negative for rales, rhonchi, wheezes or diminished lung sounds Cardio regular rate, regular rhythm, S1 normal heart sound, S2 normal heart sound and no murmurs Palpation: Negative for palpable S3 or palpable S4 Rate: Negative for bradycardia, tachycardic or other Rhythm: Negative for abnormal rhythm GI normal to inspection, nondistended, normoactive bowel sounds, non-tender, non- distended and no masses Palpation: soft; Negative for tender, guarding or rebound tenderness present Back/Spine no CVA tenderness General Back: Negative for CVA tenderness Cervical Spine: Negative for cervical spine tenderness Thoracic Spine / Upper Back: Negative for thoracic spinal tenderness or paraspinal muscle tenderness Lumbar Spine / Lower Back: Negative for lumbar spinal tenderness Extremity normal to inspection General Extremety ED: Negative for edema or tenderness General Extremity: Negative for edema Neuro oriented x3 and CN's II-XII intact bilaterally Sensorium / Orientation: alert; Negative for orientation impaired, lethargic or stuporous Motor Exam: strength 5/5 throughout Psych mental status grossly normal Appearance: Negative for unkempt Attitude: No agitated Mood & Affect: Negative for depressed, anxious or tearful Skin No no rashes or lesions noted and No no wounds Skin Narrative: Cellulitis anterior neck. Abscess. Lesions: No lesion noted Rashes: rashes noted MDM MDM MDM Narrative Medical decision making narrative: 78-year-old male status post biopsy of his cervical lymph node. Developed a post procedure abscess. This needs to be drained. He also has a cellulitis. He has been on antibiotics 3 to 4 days. Repeat exam patient is doing well at 3:45 PM. I&D of the abscess is doing well. There is no signs of any type of expanding hematoma. I reviewed the patient's CAT scan. I am waiting on the official read. But I do think he should be admitted for IV antibiotics and further evaluation as needed. Prior to admission I did send MRSA and wound cultures from the site of the incision and drainage. History & Record Review Discussion w/independent historian: Patient Lab Data Attestation: I reviewed the patient's lab results. Lab results narrative: CBC shows normal white count of 10. H&H 12.2 and 35.8 which is consistent with his prior labs and chronic baseline anemia. Platelet count 151. Labs: Laboratory Results - last 24 hr 05/26/24 14:25 WBC 10.0 RBC 3.61 L Hgb 12.2 L Hct 35.8 L MCV 99.2 H MCH 33.8 H MCHC 34.1 RDW Std Deviation 49.9 H RDW Coeff of Betsy 13.8 Plt Count 151 MPV 12.1 H Immature Gran % (Auto) 0.700 Neut % (Auto) 73.0 H Lymph % (Auto) 13.8 L [place] % (Auto) 10.6 H Eos % (Auto) 1.7 Baso % (Auto) 0.2 Absolute Neuts (auto) 7.3 Absolute Lymphs (auto) 1.38 Nucleated RBC % 0 Sodium 137 Potassium 4.2 Chloride 106 Carbon Dioxide 28.0 Anion Gap 3 L BUN 23 H Creatinine 0.78 Estim Creat Clear Calc 91.08 Est GFR (MDRD) Af Amer 123 Est GFR (MDRD) Non-Af 102 BUN/Creatinine Ratio 29.4 H Glucose 118 H Calcium 9.4 Procedures Other Procedures Procedure(s): Submental abscess incision and drainage. Locally anesthetized with lidocaine with epinephrine. Cleaned the area prior to. Prior to any incision I was able to express about 10 cc of pus, sebaceous and bloody material. I then made about a 1 cm incision. Probed and broke up any loculations. Irrigated the wound and expressed another 5 of the same fluid. Patient tolerated well. I placed about 3 inches of quarter inch gauze for packing material to keep it open to drain. I am going to obtain a CT to see the size of this abscess. To help decide if he can be outpatient versus inpatient. Discharge Plan Dx/Rx/DC Orders Clinical Impression: Abscess, History of incision and drainage, History of atrial fibrillation, Chronic anticoagulation Disposition Disposition: Acute Care [facility]
[2024-05-26] MEDS: Lidocaine 1% /Epi 1:100 (20ml) 20 ML Vial 10 ML INFILT (13:42)
--- NOTE | 2024-05-26 14:13 | CT_ITS ---
INDICATION: submental abscess. CT BX PERFORMED 05/20/24 . DRAINED AND PACKED IN ER TODAY EXAMINATION: CT Soft Tissue Neck W/ Contrast Injection TECHNIQUE: Helically acquired images were obtained of the neck following IV contrast. A radiation dose optimization technique was used for this scan. IV Contrast dosage and agent: 75 cc [id number] COMPARISON: None. FINDINGS: NASOPHARYNX: Unremarkable. SUPRAHYOID NECK: Unremarkable oropharynx, oral cavity, parapharyngeal space, and retropharyngeal space. INFRAHYOID NECK: There is a 2.6 x 2 x 2.3 cm complex rim-enhancing fluid collection in the subcutaneous tissue of the right submental space. Otherwise Unremarkable larynx, hypopharynx, and supraglottis. THYROID: No focal lesions. SALIVARY GLANDS: Unremarkable. LYMPH NODES: No cervical or supraclavicular lymphadenopathy. VASCULAR STRUCTURES: Unremarkable. VISUALIZED PORTIONS OF THE ORBITS, PARANASAL SINUSES, MASTOID AIR CELLS AND SKULL BASE: Moderate mucosal thickening of the bilateral maxillary sinuses and multiple ethmoid air cells. BONES: Diffuse degenerative changes.. THORACIC INLET: Clear lung apices. CT/Soft Tissue Neck WITH Contrast IMPRESSION: 2.6 cm right submental abscess. Bilateral maxillary and ethmoid sinusitis. Electronically Signed: Jesse Cárdenas MD at 16:53 EST ,
[2024-05-26 14:37] LABS: Absolute Lymphocyte Count 1.38 X10^3/uL (0.83-4.51); Absolute Neutrophil Count 7.3 X10^3/uL (2.0-7.7); Basophil# 0.02 X10^3/uL; Basophil% 0.2 % (0-1); Eosinophil# 0.17 X10^3/uL; Eosinophils% 1.7 % (0-5); Hematocrit 35.8 % (40-54); Hemoglobin 12.2 g/dL (13.0-16.5); Lymphocyte # 1.38 X10^3/ul (0.83-4.51); Lymphocyte % 13.8 % (19-41); Mean Corp Hgb Conc 34.1 g/dL (32-36); Mean Corpuscular Hgb 33.8 pg (27.0-32.0); Mean Corpuscular Volume 99.2 fL (80-94); Mean Platelet Vol. 12.1 fl (6.2-12.0); Monocyte# 1.06 X10^3/uL; Monocyte% 10.6 % (0-10); NRBC Flagged by Analyzer 0 % (0-5); Neutrophil # 7.31 X10^3/uL (2.7-7.7); Platelet Count 151 K/mm3 (150-450); RBC Distribution Width CV 13.8 % (11.6-14.6); RBC Distribution Width SD 49.9 fl (35.1-43.9); Red Blood Count 3.61 M/mm3 (4.6-6.2)
[2024-05-26 15:07] LABS: Anion Gap 3 (5-15); BUN 23 mg/dL (7-18); BUN/Creat Ratio 29.4 RATIO (10-20); Calcium,Total 9.4 mg/dL (8.5-10.1); Chloride 106 mmol/L (98-107); Creatinine, Serum 0.78 mg/dL (0.70-1.30); EST Glomerular Filtration Rate 102 mL/min (>60); Est Glom Filt Rate - Afr Amer 123 mL/min (>60); Estimated Creatinine Clearance 91.08 ml/min; Glucose 118 mg/dL (74-106); Potassium 4.2 mmol/L (3.5-5.1); Sodium Level 137 mmol/L (136-145)
[2024-05-26 15:13] VITALS: BP 138/65; PULSE 50; RESP 18; O2SAT 98
[2024-05-26] MEDS: Ampicillin/Sulbactam 3 GM in 0.9% Normal Saline (100mL MB+) 100 ML IV (15:58)
[2024-05-26 16:17] VITALS: BP 145/100; PULSE 57; RESP 18; TEMP 36.7; O2SAT 97
--- NOTE | 2024-05-26 16:23 | HP.PCM.HOS_ITS ---
HPI - General General Date of Admission: 05/26/24 Date of Service: 05/26/24 Chief Complaint: Worsening R neck cellulitis, abscess. HPI Narrative The patient is a 78 y/o M w/ PMHx: Chronic macrocytic anemia, Obesity, Anxiety and Depression, Former tobacco use, PAF/Flutter, Chronic bradycardia, BPH with obstructive pathology, Nonischemic cardiomyopathy who presents to the [facility] ED on 05/26/24 with history of recent May 20 lymph node biopsy by interventional radiology with following the subsequent of the development of cellulitis placed on Keflex at that time and despite this 3 to 4-day course of antibiotics the swelling has progressively worsened and now pus is draining from the wound prompting ED evaluation to be cautious. He denies any recent fever or chills associated with this and has been able to eat with no nausea or emesis. Patient has no issues swallowing and has had no difficulty breathing since onset. In the ED I&D was performed per ED physician with significant submental abscess evident. Workup in the ED included T98.9, heart rate 67, BP 134/88, respiratory rate 14, 98% on room air, CBC with WC 10, human 12.2, MCV 99.2, platelet 151 without marked shift, BMP with BUN/creatinine 23/0.78, GFR 102, glucose 118, CT soft tissue neck with 2.6 cm right submental abscess with bilateral maxillary and ethmoid sinusitis evident. Discussed with ED physician and they will send Wound Cx and MRSA Cx in the ED. Discussed case with ENT Dr. Hall and they recommended IV abx therapy only at this time. In the ED patient administered Unasyn 3 g IV x 1. [facility] Medical History Wears hearing aid Depression Alcohol use Bladder disease History of diverticulitis Former smoker Varicose vein of leg History of stress test History of echocardiogram History of Holter monitoring Cardiology follow-up encounter History of atrial fibrillation Bradycardia Typical atrial flutter Left bundle branch block (LBBB) TIMOTHY (obstructive sleep apnea) BPH (benign prostatic hyperplasia) Back pain Thoracic neuritis Segmental and somatic dysfunction of pelvic region Segmental and somatic dysfunction of lumbar region Segmental and somatic dysfunction of thoracic region Fatigue Chronic systolic (congestive) heart failure Obesity Non-ischemic cardiomyopathy Hyperlipidemia Segmental and somatic dysfunction of thoracic region Acute cervical sprain Segmental and somatic dysfunction of cervical region Osteoarthritis Arthritis Benign essential hypertension Home Medications ?Medication ?Instructions ?Recorded ?Last Taken ?Type pravastatin 40 mg tablet 40 mg PO QHS cholesterol 03/02/18 01/07/22 History tamsulosin 0.4 mg capsule 0.4 mg PO DAILY prostate 03/05/18 01/08/22 History allopurinol 300 mg tablet 300 mg PO DAILY gout 01/05/20 01/08/22 History cholecalciferol (vitamin D3) 125 125 mcg PO DAILY 07/19/20 01/08/22 History mcg (5,000 unit) capsule citalopram 10 mg tablet 10 mg PO DAILY 07/19/20 01/08/22 History lactobacillus combination no.8 3 1 cell PO QHS 11/17/20 01/07/22 History billion cell capsule metronidazole 0.75 % topical gel 1 applic topical DAILY PRN SKIN 02/27/21 Unknown History losartan 50 mg tablet 50 mg PO BID bp #180 tabs 11/01/21 03/19/23 Rx furosemide 40 mg tablet See Rx Instructions .Route 03/17/23 Unknown Rx .COMPLEX #90 tabs apixaban 5 mg tablet (Eliquis) 5 mg PO BID 07/14/23 Unknown History amiodarone 200 mg tablet 100 mg (1/2 x 200 mg) PO DAILY #45 07/24/23 Unknown Rx tabs acetaminophen 650 mg 650 mg PO Q12H PRN fever or pain 03/09/24 Unknown History tablet,extended release (Tylenol Arthritis Pain) metoprolol tartrate 25 mg tablet 25 mg PO BID #180 tabs 05/10/24 Unknown Rx cephalexin 500 mg capsule 500 mg PO Q6 #40 CAPSULES 05/23/24 Unknown Rx Allergy/AdvReac Type Severity Reaction Status Date / Time Sulfa (Sulfonamide Allergy Intermediate Hives Verified 05/26/24 12:57 Antibiotics) Family History (Updated 05/26/24 @ 17:[address] Fabiola Lowery MD) Son Asthma Mother Hypertension HLD (hyperlipidemia) Father , in WW[place] No problems noted. Surgical History History of urethrotomy (~03/2023) Hx of arthroscopy of knee Hx of arthroplasty Hx of colonoscopy History of radiofrequency ablation procedure for cardiac arrhythmia (08/03/20) History of cardioversion (03/27/20) History of cataract surgery History of laparoscopic cholecystectomy History of colectomy History of knee surgery Social History (Updated 05/26/24 @ 17:[address] Fabiola Lowery MD) household members: spouse Smoking Status: Former smoker how long ago did patient quit smoking: Quit 30 yrs prior (05/24/24) with max 1 ppd since teen until quit. alcohol intake: current alcohol intake frequency: a few times a week details: Notes 1-2 beers 4-5x/week. substance use type: does not use ROS ROS Narrative Admission Review of Systems: CONSTITUTIONAL: No weight loss, fever, chills, + weakness or fatigue. HEENT: + significant right sided lateral neck below the chin erythema, induration, tenderness to palpation and swelling/fluctuance. Eyes: No visual loss, blurred vision, double vision or yellow sclerae. Ears, Nose, Throat: No hearing loss, sneezing, congestion, runny nose or sore throat. SKIN: No rash or itching, lesions, wounds except + significant right sided lateral neck below the chin erythema, induration, tenderness to palpation and swelling/fluctuance. CARDIOVASCULAR: No chest pain, chest pressure or chest discomfort, palpitations, edema, orthopnea, syncopal events. RESPIRATORY: No shortness of breath, cough or sputum, wheezing, hemoptysis. GASTROINTESTINAL: No anorexia, nausea, vomiting or diarrhea, abdominal pain, melena, BRBPR. GENITOURINARY: No dysuria, frequency, urgency or retention. NEUROLOGICAL: No headache, dizziness, syncope, paralysis, ataxia, numbness or tingling in the extremities, focal weakness, change in bowel or bladder control, seizure. MUSCULOSKELETAL: + muscle, back pain, joint pain or stiffness. HEMATOLOGIC: + Chronic anemia, easy bleeding/bruising. LYMPHATICS: No enlarged nodes. No history of splenectomy. PSYCHIATRIC: + History of anxiety and depression. ENDOCRINOLOGIC: No reports of sweating, cold or heat intolerance. No polyuria or polydipsia. ALLERGIES: + History of hives. Vital Signs Vital Signs Vital Signs: 05/26/24 12:55 05/26/24 15:13 05/26/24 16:17 Temperature 98.9 F 98.1 F Temperature Source Temporal Pulse Rate 67 50 L 57 L Respiratory Rate 14 18 18 Blood Pressure 154/88 H 138/65 H 145/100 H Blood Pressure Mean 110 89 115 Pulse Ox 98 98 97 Oxygen Delivery Method Room Air Room Air Weight Weight: 247 lb 12.793 oz Body Mass Index (BMI) 37.6 Physical Exam Narrative Physical Examination: General: Awake, alert, oriented x 3 and cooperative, seated upright in the ED bed, denies any acute complaints at this time, some mild discomfort to the right neck status post I&D but no severe pain. Skin: Normal color, normal turgor, no icterus, no cyanosis except still significant erythema to the right lateral neck and below the chin with induration, packing in place with wick noted with still some mildly purulent material noted around the wick. HEENT: AT aside from noted acute presentation see skin/NC, EOMI, PERRLA, MMM, difficult to assess carotid bruits/JVD given acute infectious process as noted with significant induration and swelling in addition to extremely thickened neck with obese habitus. Lungs: Mildly diminished, greater bases, appropriate effort no rales, ronchi or wheezing. Heart: Mildly bradycardic with regular rhythm; no gallop, rub audible. Abdomen: Soft, obese, NTTP, ND, normal BS, no appreciated HSM. Extremities: No cyanosis, no clubbing, mild bilateral ankle not markedly pitting edema present. Neurological: Patient awake, alert, oriented as noted, cognitive function intact; pupils equally reactive to light and accommodation, cranial nerves grossly normal, moving all 4 extremities, no focal deficits, strength mildly globally decreased secondary to acute presentation Psychiatric: Affect appears normal, no acute evidence of depressive or anxiety feelings. Results Lab / Micro Data 05/26/24 14:25 05/26/24 14:25 Labs: Laboratory Results - last 24 hr 05/26/24 14:25: WBC 10.0, RBC 3.61 L, Hgb 12.2 L, Hct 35.8 L, MCV 99.2 H, MCH 33.8 H, MCHC 34.1, RDW Std Deviation 49.9 H, RDW Coeff of Betsy 13.8, Plt Count 151, MPV 12.1 H, Immature Gran % (Auto) 0.700, Neut % (Auto) 73.0 H, Lymph % (Auto) 13.8 L, [place] % (Auto) 10.6 H, Eos % (Auto) 1.7, Baso % (Auto) 0.2, Absolute Neuts (auto) 7.3, Absolute Lymphs (auto) 1.38, Nucleated RBC % 0, Sodium 137, Potassium 4.2, Chloride 106, Carbon Dioxide 28.0, Anion Gap 3 L, BUN 23 H, Creatinine 0.78, Estim Creat Clear Calc 91.08, Est GFR (MDRD) Af Amer 123, Est GFR (MDRD) Non-Af 102, BUN/Creatinine Ratio 29.4 H, Glucose 118 H, Calcium 9.4 Assessment & Plan Assessment/Plan (1) Abscess: PLAN: Plan The patient is a 78 y/o M w/ PMHx: Chronic macrocytic anemia, Obesity, Anxiety and Depression, Former tobacco use, PAF/Flutter, Chronic bradycardia, BPH with obstructive pathology, Nonischemic cardiomyopathy who presents to the [facility] ED on 05/26/24 with history of recent May 20 lymph node biopsy by interventional radiology with following the subsequent of the development of cellulitis placed on Keflex at that time and despite this 3 to 4-day course of antibiotics the swelling has progressively worsened and now pus is draining from the wound prompting ED evaluation to be cautious. #1. R Submental Abscess/Cellulitis s/p R sided neck attempted lymph node Bx status post ED I&D: Per discussion with ENT, appropriate to admit for abx therapy only at this time as ENT not available until 05/28/24 thus will admit to [facility], maintain on IV vancomycin and Zosyn pending wound culture and wound MRSA PCR obtained per ED following I&D in the ED, will continue packing with wound RN consultation, encourage continued elevation of the head, as needed pain regimen/antiemetic regimen. If worsens or not responding to abx therapy will then have to re-involve ENT. #2. Macrocytic anemia: Admission hemoglobin 12.2, MCV 99.2, similar to previous baseline, will continue to trend CBC, encourage continued outpatient evaluation. #3. PAF/flutter: Status post RFA as well as previous cardioversion, will continue amiodarone and metoprolol regimen, temporally hold Eliquis in case of any future intervention needs, last dose 05/25/2024 evening. #4. Nonischemic cardiomyopathy: Most recent echocardiogram noted 04/04/2021 with mildly dilated LV, LV systolic function normal, EF 55%, PASP 40 mmHg with stage II diastolic dysfunction, moderately enlarged LA, will continue metoprolol, losartan, Lasix home regimen as well as statin therapy, temporally holding Eliquis as noted. #5. Hypertension: Continue home regimen including metoprolol, Lasix, losartan with hold parameters as needed, PRN hydralazine. #6. Hyperlipidemia: We will continue patient on statin therapy. #7. Anxiety depression: We will continue patient home citalopram regimen. #8. Former tobacco use: Encourage continued tobacco cessation. #9. Gout: We will continue patient home allopurinol regimen. #10. Obesity: Weight loss and lifestyle changes encouraged. #11. BPH with obstructive pathology: We will continue patient on Flomax regimen. #12. TIMOTHY: Noted in chart history, does not use any PAP therapy per discussions #13. DVT prophylaxis: SCDs, temporarily holding home Eliquis regimen until assure clinically improving and no need for intervention per ENT. #14. CODE status: Patient MAC is his and living will is currently employed. Discussed CODE status at length including difference between FULL code, DNR-CCA and DNR-CC status. Following discussions about the differences in these status, requested Full Code status. Charges/Coding Visit Charges Inpatient E&M: 47352 Init Hosp L3
[2024-05-26 18:41] VITALS: BMI 36.8
[2024-05-26 18:45] VITALS: BP 143/61; PULSE 68; RESP 18; TEMP 36.8; O2SAT 95
[2024-05-26 19:15] LABS: M R Staph aureus DNA By PCR Negative (Negative); Probe Check PASS; Specimen Processing Control PASS; Staph aureus DNA By PCR NEGATIVE (Negative)
[2024-05-26] MEDS: Vancomycin HCl 2,000 MG in 0.9% Normal Saline (500mL Bag) 500 ML 250 MG IV (19:57)
--- NOTE | 2024-05-26 20:20 | PCM.RX.CS ---
Consult Antibiotic Management Pharmacy has been consulted to manage selected antibiotic: Vancomycin Type of Intervention Type of Consult: New start Suspected Infection Suspected Infection: Skin/Soft tissue Prior Doses of Antibiotics Prior Doses of Antibiotics Received/Current Regimen: 05/26/24 @ 2000 VAncomycin 2000mg x1 dose Labs Labs: Sodium 137 mmol/L (136-145) 05/26/24 14:25 Potassium 4.2 mmol/L (3.5-5.1) 05/26/24 14:25 Chloride 106 mmol/L (98-107) 05/26/24 14:25 Carbon Dioxide 28.0 mmol/L (21.0-32.0) 05/26/24 14:25 Anion Gap 3 (5-15) L 05/26/24 14:25 BUN 23 mg/dL (7-18) H 05/26/24 14:25 Creatinine 0.78 mg/dL (0.70-1.30) 05/26/24 14:25 Est GFR (MDRD) Af Amer 123 mL/min (>60) 05/26/24 14:25 Est GFR (MDRD) Non-Af 102 mL/min (>60) 05/26/24 14:25 BUN/Creatinine Ratio 29.4 RATIO (10-20) H 05/26/24 14:25 Glucose 118 mg/dL (74-106) H 05/26/24 14:25 Dosing Weight Weight used for dosin kg Estimated Creatinine Clearance Estimated Creatinine Clearance: 91 Goal Trough Goal Trough: 15-20 mcg/mL Pharmacy Plan for Drug Dosing Pharmacy Plan for Drug Dosin05/27/24 @ 0400 Start Vancomycin 1250mg every 8 hours Pharmacy Service will continue to monitor and adjust dosing as required. Follow-Up Labs Follow-Up Labs: Trough: Vancomycin Date/Time Labs Ordered Labs to be done on [date and time ordered]: 05/27/24 @ 1930
[2024-05-26 22:18] VITALS: BP 102/56; PULSE 87; RESP 18; TEMP 37; O2SAT 95
[2024-05-26] MEDS: Pravastatin 40 MG Tablet PO (22:25)
[2024-05-26] MEDS: Losartan Potassium 50 MG Tablet PO (22:25)
[2024-05-26] MEDS: Ensure Plus High Protein 120 ML LIQUID PO (22:25)
[2024-05-26 22:26] VITALS: PULSE 87
[2024-05-26] MEDS: Lactobacillis Acidophilus 1 CAP PO (22:26)
[2024-05-26] MEDS: Metoprolol Tartrate 25 MG Tablet PO (22:26)
[2024-05-26] MEDS: Piperacil/Tazobactam 3.375 GM in 0.9% Normal Saline (50mL MB+) 50 ML IV (22:33)
[2024-05-27] MEDS: Vancomycin HCl 1,250 MG in 0.9% Normal Saline (250mL Bag) 250 ML 167 MG IV ×3 (03:54→23:03)
[2024-05-27 04:12] VITALS: BP 122/45; PULSE 55; RESP 18; TEMP 36.8; O2SAT 96
[2024-05-27 04:13] VITALS: BMI 37.3
[2024-05-27 06:00] LABS: Absolute Lymphocyte Count 1.26 X10^3/uL (0.83-4.51); Absolute Neutrophil Count 5.6 X10^3/uL (2.0-7.7); Basophil# 0.03 X10^3/uL; Basophil% 0.4 % (0-1); Eosinophil# 0.26 X10^3/uL; Eosinophils% 3.2 % (0-5); Hematocrit 34.5 % (40-54); Hemoglobin 11.2 g/dL (13.0-16.5); Lymphocyte # 1.26 X10^3/ul (0.83-4.51); Lymphocyte % 15.5 % (19-41); Mean Corp Hgb Conc 32.5 g/dL (32-36); Mean Corpuscular Hgb 33.4 pg (27.0-32.0); Mean Platelet Vol. 12.4 fl (6.2-12.0); Monocyte# 0.97 X10^3/uL; Monocyte% 11.9 % (0-10); NRBC Flagged by Analyzer 0 % (0-5); Neutrophil # 5.57 X10^3/uL (2.7-7.7); Neutrophil % 68.3 % (47-70); Platelet Count 149 K/mm3 (150-450); RBC Distribution Width CV 13.6 % (11.6-14.6); RBC Distribution Width SD 51.4 fl (35.1-43.9); Red Blood Count 3.35 M/mm3 (4.6-6.2); White Blood Count 8.2 K/mm3 (4.4-11.0)
[2024-05-27 06:14] LABS: ALB/GLOB Ratio 0.9 RATIO (0.9-2.4); AST(SGOT) 13 U/L (15-37); Alanine Aminotransfer ALT/SGPT 22 U/L (16-61); Albumin, Serum 3.1 g/dL (3.2-5.0); Alkaline Phosphatase 78 U/L (45-117); Anion Gap 4 (5-15); BUN 22 mg/dL (7-18); BUN/Creat Ratio 32.4 RATIO (10-20); Calcium,Total 8.9 mg/dL (8.5-10.1); Chloride 109 mmol/L (98-107); Creatinine, Serum 0.68 mg/dL (0.70-1.30); EST Glomerular Filtration Rate 120 mL/min (>60); Est Glom Filt Rate - Afr Amer 145 mL/min (>60); Estimated Creatinine Clearance 90.57 ml/min; Globulin 3.5 g/dL (2.2-4.2); Glucose 109 mg/dL (74-106); Protein, Total 6.6 g/dL (6.4-8.2); Sodium Level 138 mmol/L (136-145)
[2024-05-27] MEDS: Piperacil/Tazobactam 3.375 GM in 0.9% Normal Saline (50mL MB+) 50 ML IV ×3 (06:24→21:40)
[2024-05-27] MEDS: 0.9% Saline Lock 10 ML Syringe IV (06:38)
--- NOTE | 2024-05-27 08:37 | PN.HOSP_ITS ---
Reason for Visit Reason for Visit: Diagnoses Cutaneous abscess, unspecified (05/26/24) Subjective Subjective Patient is a 78-year-old gentleman who underwent lymph node biopsy by interventional radiology subsequently developed swelling and erythema under the right chin treated with Keflex without much improvement presented back to the emergency department underwent I&D and subsequently admitted to regular nursing floor for further management Objective Data Objective Data Vital Signs: Vital Signs Temp Pulse Resp BP Pulse Ox O2 Del Method 98.3 F 55 L 18 122/45 H 96 Room Air 05/27/24 04:12 05/27/24 04:12 05/27/24 04:12 05/27/24 04:12 05/27/24 04:12 05/27/24 04:12 Oxygen Delivery Method Room Air Weight: 111.2 kg Body Mass Index (BMI) 37.3 Intake & Output: Intake and Output for Last 24 Hours 05/25/24 05/26/24 05/27/24 23:59 23:59 23:59 Intake Total 652 / 652 325 / 325 Balance 652 / 652 325 / 325 Lab / Micro Data 05/27/24 05:35 05/27/24 05:35 Labs: Laboratory Results - last 24 hr 05/26/24 14:25: WBC 10.0, RBC 3.61 L, Hgb 12.2 L, Hct 35.8 L, MCV 99.2 H, MCH 33.8 H, MCHC 34.1, RDW Std Deviation 49.9 H, RDW Coeff of Betsy 13.8, Plt Count 151, MPV 12.1 H, Immature Gran % (Auto) 0.700, Neut % (Auto) 73.0 H, Lymph % (Auto) 13.8 L, [place] % (Auto) 10.6 H, Eos % (Auto) 1.7, Baso % (Auto) 0.2, Absolute Neuts (auto) 7.3, Absolute Lymphs (auto) 1.38, Nucleated RBC % 0, Sodium 137, Potassium 4.2, Chloride 106, Carbon Dioxide 28.0, Anion Gap 3 L, BUN 23 H, Creatinine 0.78, Estim Creat Clear Calc 91.08, Est GFR (MDRD) Af Amer 123, Est GFR (MDRD) Non-Af 102, BUN/Creatinine Ratio 29.4 H, Glucose 118 H, Calcium 9.4 05/26/24 16:50: S.aureus Protein A PCR NEGATIVE, MRSA (PCR) Negative 05/27/24 05:35: WBC 8.2, RBC 3.35 L, Hgb 11.2 L, Hct 34.5 L, MCV 103.0 H, MCH 33.4 H, MCHC 32.5, RDW Std Deviation 51.4 H, RDW Coeff of Betsy 13.6, Plt Count 149 L, MPV 12.4 H, Immature Gran % (Auto) 0.700, Neut % (Auto) 68.3, Lymph % (Auto) 15.5 L, [place] % (Auto) 11.9 H, Eos % (Auto) 3.2, Baso % (Auto) 0.4, Absolute Neuts (auto) 5.6, Absolute Lymphs (auto) 1.26, Nucleated RBC % 0, Sodium 138, Potassium 4.0, Chloride 109 H, Carbon Dioxide 26.0, Anion Gap 4 L, B UN 22 H, Creatinine 0.68 L, Estim Creat Clear Calc 90.57, Est GFR (MDRD) Af Amer 145, Est GFR (MDRD) Non-Af 120, BUN/Creatinine Ratio 32.4 H, Glucose 109 H, Calcium 8.9, Total Bilirubin 0.40, AST 13 L, ALT 22, Alkaline Phosphatase 78, Total Protein 6.6, Albumin 3.1 L, Globulin 3.5, Albumin/Globulin Ratio 0.9 Radiography Diagnostic Testing: Radiology Impression Soft Tissue Neck CT 05/26/24 14:13 IMPRESSION: 2.6 cm right submental abscess. Bilateral maxillary and ethmoid sinusitis. Electronically Signed: Jesse Cárdenas MD at 16:53 EST , Physical Exam Narrative GENERAL: cooperative HEENT: An area of induration under the right chin with packing EYES; Anicteric, Normal Conjunctiva NECK; supple, normal thyroid, RESPIRATORY: Diminished to auscultation CARDIOVASCULAR: Regular S1 S2, GI: soft, normoactive bowel sounds, : No Renal angle tenderness; EXTREMITIES: No edema, no clubbing, MUSCULOSKELETAL: no muscle wasting NEURO: Awake; no lateralizing signs. SKIN: As discussed above PSYCH; Flat affect Assessment & Plan Assessment/Plan (1) Abscess: PLAN: Plan Patient is a 78-year-old gentleman who underwent lymph node biopsy by interventional radiology subsequently developed swelling and erythema under the right chin treated with Keflex without much improvement presented back to the emergency department underwent I&D and subsequently admitted to regular nursing floor for further management The patient is a 78 y/o M w/ PMHx: Chronic macrocytic anemia, Obesity, Anxiety and Depression, Former tobacco use, PAF/Flutter, Chronic bradycardia, BPH with obstructive pathology, Nonischemic cardiomyopathy who presents to the [facility] ED on 05/26/24 with history of recent May 20 lymph node biopsy by interventional radiology with following the subsequent of the development of cellulitis placed on Keflex at that time and despite this 3 to 4-day course of antibiotics the swelling has progressively worsened and now pus is draining from the wound prompting ED evaluation to be cautious. #1. R Submental Abscess/Cellulitis s/p R sided neck attempted lymph node Bx status post ED I&D: Per discussion with ENT, appropriate to admit for abx therapy only at this time as ENT not available until 05/28/24 thus will admit to [place], maintain on IV vancomycin and Zosyn pending wound culture and wound MRSA PCR obtained per ED following I&D in the ED, will continue packing with wound RN consultation, encourage continued elevation of the head, as needed pain regimen/antiemetic regimen. If worsens or not responding to abx therapy will then have to re-involve ENT. #2. Macrocytic anemia: Admission hemoglobin 12.2, MCV 99.2, similar to previous baseline, will continue to trend CBC, encourage continued outpatient evaluation. #3. PAF/flutter: Status post RFA as well as previous cardioversion, will continue amiodarone and metoprolol regimen, temporally hold Eliquis in case of any future intervention needs, last dose 05/25/2024 evening. #4. Nonischemic cardiomyopathy: Most recent echocardiogram noted 04/04/2021 with mildly dilated LV, LV systolic function normal, EF 55%, PASP 40 mmHg with stage II diastolic dysfunction, moderately enlarged LA, will continue metoprolol, losartan, Lasix home regimen as well as statin therapy, temporally holding Eliquis as noted. #5. Hypertension: Continue home regimen including metoprolol, Lasix, losartan with hold parameters as needed, PRN hydralazine. #6. Hyperlipidemia: We will continue patient on statin therapy. #7. Anxiety depression: We will continue patient home citalopram regimen. #8. Former tobacco use: Encourage continued tobacco cessation. #9. Gout: We will continue patient home allopurinol regimen. #10. Obesity: Weight loss and lifestyle changes encouraged. #11. BPH with obstructive pathology: We will continue patient on Flomax regimen. #12. TIMOTHY: Noted in chart history, does not use any PAP therapy per discussions #13. DVT prophylaxis: SCDs, temporarily holding home Eliquis regimen until assure clinically improving and no need for intervention per ENT. #14. CODE status: Patient MAC is his and living will is currently employed. Discussed CODE status at length including difference between FULL code, DNR-CCA and DNR-CC status. Following discussions about the differences in these status, requested Full Code status.
--- NOTE | 2024-05-27 08:37 | PCM.PN.HOSP ---
Reason for Visit Reason for Visit: Diagnoses Cutaneous abscess, unspecified (05/26/24) Subjective Subjective Patient is a 78-year-old gentleman who underwent lymph node biopsy by interventional radiology subsequently developed swelling and erythema under the right chin treated with Keflex without much improvement presented back to the emergency department underwent I&D and subsequently admitted to regular nursing floor for further management Objective Data Objective Data Vital Signs: Vital Signs Temp Pulse Resp BP Pulse Ox O2 Del Method 98.3 F 55 L 18 122/45 H 96 Room Air 05/27/24 04:12 05/27/24 04:12 05/27/24 04:12 05/27/24 04:12 05/27/24 04:12 05/27/24 04:12 Oxygen Delivery Method Room Air Weight: 111.2 kg Body Mass Index (BMI) 37.3 Intake & Output: Intake and Output for Last 24 Hours 05/25/24 05/26/24 05/27/24 23:59 23:59 23:59 Intake Total 652 / 652 325 / 325 Balance 652 / 652 325 / 325 Lab / Micro Data 05/27/24 05:35 05/27/24 05:35 Labs: Laboratory Results - last 24 hr 05/26/24 14:25: WBC 10.0, RBC 3.61 L, Hgb 12.2 L, Hct 35.8 L, MCV 99.2 H, MCH 33.8 H, MCHC 34.1, RDW Std Deviation 49.9 H, RDW Coeff of Betsy 13.8, Plt Count 151, MPV 12.1 H, Immature Gran % (Auto) 0.700, Neut % (Auto) 73.0 H, Lymph % (Auto) 13.8 L, [place] % (Auto) 10.6 H, Eos % (Auto) 1.7, Baso % (Auto) 0.2, Absolute Neuts (auto) 7.3, Absolute Lymphs (auto) 1.38, Nucleated RBC % 0, Sodium 137, Potassium 4.2, Chloride 106, Carbon Dioxide 28.0, Anion Gap 3 L, BUN 23 H, Creatinine 0.78, Estim Creat Clear Calc 91.08, Est GFR (MDRD) Af Amer 123, Est GFR (MDRD) Non-Af 102, BUN/Creatinine Ratio 29.4 H, Glucose 118 H, Calcium 9.4 05/26/24 16:50: S.aureus Protein A PCR NEGATIVE, MRSA (PCR) Negative 05/27/24 05:35: WBC 8.2, RBC 3.35 L, Hgb 11.2 L, Hct 34.5 L, MCV 103.0 H, MCH 33.4 H, MCHC 32.5, RDW Std Deviation 51.4 H, RDW Coeff of Betsy 13.6, Plt Count 149 L, MPV 12.4 H, Immature Gran % (Auto) 0.700, Neut % (Auto) 68.3, Lymph % (Auto) 15.5 L, [place] % (Auto) 11.9 H, Eos % (Auto) 3.2, Baso % (Auto) 0.4, Absolute Neuts (auto) 5.6, Absolute Lymphs (auto) 1.26, Nucleated RBC % 0, Sodium 138, Potassium 4.0, Chloride 109 H, Carbon Dioxide 26.0, Anion Gap 4 L, BUN 22 H, Creatinine 0.68 L, Estim Creat Clear Calc 90.57, Est GFR (MDRD) Af Amer 145, Est GFR (MDRD) Non-Af 120, BUN/Creatinine Ratio 32.4 H, Glucose 109 H, Calcium 8.9, Total Bilirubin 0.40, AST 13 L, ALT 22, Alkaline Phosphatase 78, Total Protein 6.6, Albumin 3.1 L, Globulin 3.5, Albumin/Globulin Ratio 0.9 Radiography Diagnostic Testing: Radiology Impression Soft Tissue Neck CT 05/26/24 14:13 IMPRESSION: 2.6 cm right submental abscess. Bilateral maxillary and ethmoid sinusitis. Electronically Signed: Jesse Cárdenas MD at 16:53 EST , Physical Exam Narrative GENERAL: cooperative HEENT: An area of induration under the right chin with packing EYES; Anicteric, Normal Conjunctiva NECK; supple, normal thyroid, RESPIRATORY: Diminished to auscultation CARDIOVASCULAR: Regular S1 S2, GI: soft, normoactive bowel sounds, : No Renal angle tenderness; EXTREMITIES: No edema, no clubbing, MUSCULOSKELETAL: no muscle wasting NEURO: Awake; no lateralizing signs. SKIN: As discussed above PSYCH; Flat affect Assessment & Plan Assessment/Plan (1) Abscess: PLAN: Plan Patient is a 78-year-old gentleman who underwent lymph node biopsy by interventional radiology subsequently developed swelling and erythema under the right chin treated with Keflex without much improvement presented back to the emergency department underwent I&D and subsequently admitted to regular nursing floor for further management 1. Submandibular abscess ? Status post I&D in the emergency department. Cultures were sent. Subsequently started on vancomycin and Zosyn 2. Paroxysmal atrial fibrillation ? Status post previous RFA and cardioversion. Patient currently on amiodarone and metoprolol for rate control and systemic anticoagulation with apixaban 3. Hypertension ? Blood pressure controlled, home medications continued with dose adjustment as needed 4. Dyslipidemia ?Patient is on statin therapy, continued at home dose 5. BPH with lower urinary obstructive symptoms - Patient treated with tamsulosin 6. Depression with anxiety ? Patient is on escitalopram did continue 7. Anemia ? Secondary to chronic disorder monitoring H&H and transfuse if patient becomes symptomatic or hemoglobin falls below 7 8. Gout ? Patient is on allopurinol 9. Chronic congestive heart failure with preserved ejection fraction ? Echo from 04/04/2021 demonstrated EF of 55% with PASP of 40 mmHg with diastolic dysfunction. Patient is on furosemide. Currently remains euvolemic 10. Obstructive sleep apnea ? Per history consistent use of PAP therapy encouraged 11. DVT prophylaxis ? Already on apixaban Time spent in the patient's overall evaluation,decision-making process, review of diagnostic data, adjustment of management, discussion with other providers, nursing nursing and ancillary staff involved in patient's care documentation, 50 Minutes Charges/Coding Visit Charges Inpatient E&M: 37616 [facility] L3
[2024-05-27 09:52] VITALS: BP 132/48; PULSE 63; RESP 17; TEMP 36.6; O2SAT 96
[2024-05-27 09:59] VITALS: BP 132/48; PULSE 63
[2024-05-27] MEDS: Amiodarone 200 MG Tablet 100 MG PO (09:59)
[2024-05-27] MEDS: Losartan Potassium 50 MG Tablet PO ×2 (09:59→21:39)
[2024-05-27] MEDS: Metoprolol Tartrate 25 MG Tablet PO ×2 (09:59→21:37)
[2024-05-27] MEDS: Citalopram 10 MG Tablet PO (09:59)
[2024-05-27] MEDS: Allopurinol 300 MG Tablet PO (09:59)
[2024-05-27] MEDS: Tamsulosin HCl 0.4 MG Capsule PO (09:59)
[2024-05-27] MEDS: Furosemide 40 MG Tablet PO (10:00)
--- NOTE | 2024-05-27 11:10 | CASEMGMT ---
RN CM Face to Face with patient for initial transition planning/care coordination assessment. RN CM introduced self and role at [facility]. Patient lying in bed, alert and oriented. Patient willing to participate in assessment and is able to answer all questions appropriately. Care providers, pharmacy, and demographics verified. Strata: 2 PCP: Kofi Specialists: Jeffrey, core sticker; Preferred Pharmacy: [facility] Insurance: [employer], [employer] Pres[employer] Benefit: yes Living Will/HPOA: yes, Kinjal Cordova LNOK: Living Arrangements: Patient lives with in a single story home with 2 steps and railing to enter the home. Patient states he is independent at home. Transportation: self, DME/HHC: Patient has shower chair, raised toilet, cane, walker at home. Patient has had [facility] in the past. No previous SNF Patient wishes to discharge home, denies need for home health at this time. Patient states he has no further needs or concerns at this time. CM to follow for discharge planning needs that may arise. Disposition Plan: Patient to discharge home with family support and follow-up plans in place. Jordyn HAGEN, RN, CM
[2024-05-27] MEDS: BENZOCAINE/MENTHOL 1 LOZENGE MUCOUS MEM (14:23)
[2024-05-27] MEDS: Acetaminophen 325 MG Tablet 650 MG PO (14:23)
[2024-05-27 17:00] VITALS: BP 111/51; PULSE 52; RESP 18; TEMP 36.8; O2SAT 97
[2024-05-27 19:58] LABS: Vancomycin, Trough Level 19.6 ug/mL (5.0-15.0)
[2024-05-27] MEDS: Pravastatin 40 MG Tablet PO (21:19)
[2024-05-27] MEDS: Lactobacillis Acidophilus 1 CAP PO (21:19)
[2024-05-27 21:37] VITALS: BP 146/61; PULSE 60
[2024-05-27] MEDS: Vancomycin Trough/Random Due 1 LAB MC (21:39)
--- NOTE | 2024-05-27 22:00 | PCM.RX.CS ---
Consult Antibiotic Management Pharmacy has been consulted to manage selected antibiotic: Vancomycin Type of Intervention Type of Consult: Follow-up Labs Labs: Sodium 138 mmol/L (136-145) 05/27/24 05:35 Potassium 4.0 mmol/L (3.5-5.1) 05/27/24 05:35 Chloride 109 mmol/L (98-107) H 05/27/24 05:35 Carbon Dioxide 26.0 mmol/L (21.0-32.0) 05/27/24 05:35 Anion Gap 4 (5-15) L 05/27/24 05:35 BUN 22 mg/dL (7-18) H 05/27/24 05:35 Creatinine 0.68 mg/dL (0.70-1.30) L 05/27/24 05:35 Est GFR (MDRD) Af Amer 145 mL/min (>60) 05/27/24 05:35 Est GFR (MDRD) Non-Af 120 mL/min (>60) 05/27/24 05:35 BUN/Creatinine Ratio 32.4 RATIO (10-20) H 05/27/24 05:35 Glucose 109 mg/dL (74-106) H 05/27/24 05:35 Vancomycin Trough 19.6 ug/mL (5.0-15.0) H 05/27/24 19:25 Microbiology Microbiology: Microbiology 05/26/24 16:50 Wound Abcess - Neck Gram Stain - Final Goal Trough Goal Trough: 15-20 mcg/mL Pharmacy Plan for Drug Dosing Pharmacy Plan for Drug Dosing: Pharmacy Service will continue to monitor and adjust dosing as required. TROUGH 19.6 @ 7.5 HOURS. NO CHANGES, FOLLOW UP TROUGH IN 2 DAYS Follow-Up Labs Follow-Up Labs: Trough: Vancomycin Date/Time Labs Ordered Labs to be done on [date and time ordered]: 05/29 @ 1930
[2024-05-27 23:00] VITALS: BP 146/61; PULSE 59; RESP 16; TEMP 36.3; O2SAT 99
[2024-05-28] MEDS: Vancomycin HCl 1,250 MG in 0.9% Normal Saline (250mL Bag) 250 ML 167 MG IV ×3 (04:35→20:59)
[2024-05-28 05:00] VITALS: BP 124/56; PULSE 96; RESP 16; TEMP 36.4; O2SAT 96
[2024-05-28 05:02] VITALS: BMI 37.0
[2024-05-28] MEDS: Piperacil/Tazobactam 3.375 GM in 0.9% Normal Saline (50mL MB+) 50 ML IV ×3 (06:01→22:07)
[2024-05-28] MEDS: Acetaminophen 325 MG Tablet 650 MG PO ×3 (06:10→23:50)
--- NOTE | 2024-05-28 08:19 | PCM.PN.HOSP ---
Reason for Visit Reason for Visit: Diagnoses Cutaneous abscess, unspecified (05/26/24) Subjective Subjective Patient seen still continues to have copious drainage from his submandibular abscess. Repeated patient cultures only Gram stain was reported from his I&D in the emergency department. Also added MRSA PCR screen Objective Data Objective Data Vital Signs: Vital Signs Temp Pulse Resp BP Pulse Ox O2 Del Method 97.6 F L 96 16 124/56 H 96 Room Air 05/28/24 05:00 05/28/24 05:00 05/28/24 05:00 05/28/24 05:00 05/28/24 05:00 05/28/24 05:00 Oxygen Delivery Method Room Air Weight: 110.7 kg Body Mass Index (BMI) 37.0 Intake & Output: Intake and Output for Last 24 Hours 05/26/24 05/27/24 05/28/24 23:59 23:59 23:59 Intake Total 652 / 652 1300 / 1300 600 / 600 Balance 652 / 652 1300 / 1300 600 / 600 Lab / Micro Data 05/28/24 08:37 05/28/24 08:37 Labs: Laboratory Results - last 24 hr 05/27/24 19:25: Vancomycin Trough 19.6 H Micro: Microbiology 05/26/24 16:50 Wound Abcess - Neck Gram Stain - Final Physical Exam Narrative GENERAL: cooperative HEENT: An area of induration under the right chin with packing EYES; Anicteric, Normal Conjunctiva NECK; supple, normal thyroid, RESPIRATORY: Diminished to auscultation CARDIOVASCULAR: Regular S1 S2, GI: soft, normoactive bowel sounds, : No Renal angle tenderness; EXTREMITIES: No edema, no clubbing, MUSCULOSKELETAL: no muscle wasting NEURO: Awake; no lateralizing signs. SKIN: As discussed above PSYCH; Flat affect Assessment & Plan Assessment/Plan (1) Abscess: PLAN: Plan Patient is a 78-year-old gentleman who underwent lymph node biopsy by interventional radiology subsequently developed swelling and erythema under the right chin treated with Keflex without much improvement presented back to the emergency department underwent I&D and subsequently admitted to regular nursing floor for further management 1. Submandibular abscess ? Status post I&D in the emergency department. Cultures were sent. Subsequently started on vancomycin and Zosyn ? 05/28/2024;Patient seen still continues to have copious drainage from his submandibular abscess. Repeated patient cultures only Gram stain was reported from his I&D in the emergency department. Also added MRSA PCR screen 2. Paroxysmal atrial fibrillation ? Status post previous RFA and cardioversion. Patient currently on amiodarone and metoprolol for rate control and systemic anticoagulation with apixaban 3. Hypertension ? Blood pressure controlled, home medications continued with dose adjustment as needed 4. Dyslipidemia ?Patient is on statin therapy, continued at home dose 5. BPH with lower urinary obstructive symptoms - Patient treated with tamsulosin 6. Depression with anxiety ? Patient is on escitalopram did continue 7. Anemia ? Secondary to chronic disorder monitoring H&H and transfuse if patient becomes symptomatic or hemoglobin falls below 7 8. Gout ? Patient is on allopurinol 9. Chronic congestive heart failure with preserved ejection fraction ? Echo from 04/04/2021 demonstrated EF of 55% with PASP of 40 mmHg with diastolic dysfunction. Patient is on furosemide. Currently remains euvolemic 10. Obstructive sleep apnea ? Per history consistent use of PAP therapy encouraged 11. DVT prophylaxis ? Already on apixaban Time spent in the patient's overall evaluation,decision-making process, review of diagnostic data, adjustment of management, discussion with other providers, nursing nursing and ancillary staff involved in patient's care documentation, 38 minutes Charges/Coding Visit Charges Inpatient E&M: 41704 Subs Hosp L2
[2024-05-28 08:50] LABS: Hematocrit 34.8 % (40-54); Hemoglobin 11.5 g/dL (13.0-16.5); Mean Corpuscular Hgb 33.7 pg (27.0-32.0); Mean Corpuscular Volume 102.1 fL (80-94); Platelet Count 160 K/mm3 (150-450); RBC Distribution Width CV 13.5 % (11.6-14.6); RBC Distribution Width SD 50.8 fl (35.1-43.9); Red Blood Count 3.41 M/mm3 (4.6-6.2); White Blood Count 6.6 K/mm3 (4.4-11.0)
[2024-05-28 09:10] LABS: ALB/GLOB Ratio 0.8 RATIO (0.9-2.4); AST(SGOT) 15 U/L (15-37); Alanine Aminotransfer ALT/SGPT 22 U/L (16-61); Alkaline Phosphatase 74 U/L (45-117); Anion Gap 4 (5-15); BUN 20 mg/dL (7-18); BUN/Creat Ratio 25.9 RATIO (10-20); Calcium,Total 8.9 mg/dL (8.5-10.1); Chloride 111 mmol/L (98-107); Creatinine, Serum 0.77 mg/dL (0.70-1.30); EST Glomerular Filtration Rate 103 mL/min (>60); Est Glom Filt Rate - Afr Amer 125 mL/min (>60); Estimated Creatinine Clearance 90.36 ml/min; Globulin 3.8 g/dL (2.2-4.2); Glucose 115 mg/dL (74-106); Magnesium 2.4 mg/dL (1.6-2.6); Phosphorus 3.9 mg/dL (2.5-4.9); Potassium 4.1 mmol/L (3.5-5.1); Protein, Total 6.8 g/dL (6.4-8.2); Sodium Level 140 mmol/L (136-145)
[2024-05-28] MEDS: Losartan Potassium 50 MG Tablet PO ×2 (10:38→20:59)
[2024-05-28] MEDS: Citalopram 10 MG Tablet PO (10:39)
[2024-05-28] MEDS: Amiodarone 200 MG Tablet 100 MG PO (10:39)
[2024-05-28] MEDS: Tamsulosin HCl 0.4 MG Capsule PO (10:39)
[2024-05-28 10:40] VITALS: BP 114/65; PULSE 60; RESP 18; TEMP 36.6; O2SAT 97
[2024-05-28] MEDS: Metoprolol Tartrate 25 MG Tablet PO ×2 (10:40→21:06)
[2024-05-28] MEDS: Allopurinol 300 MG Tablet PO (10:40)
[2024-05-28] MEDS: Furosemide 40 MG Tablet PO (10:40)
--- NOTE | 2024-05-28 10:46 | WOUNDNOTE ---
wound photo: right neck
[2024-05-28] MEDS: 0.9% Saline Lock 10 ML Syringe IV (12:29)
[2024-05-28 16:00] VITALS: BP 137/62; PULSE 45; RESP 18; TEMP 36.4; O2SAT 97
[2024-05-28] MEDS: Pravastatin 40 MG Tablet PO (20:59)
[2024-05-28] MEDS: Lactobacillis Acidophilus 1 CAP PO (20:59)
[2024-05-28 21:06] VITALS: BP 127/69; PULSE 52
[2024-05-28 22:00] VITALS: BP 127/69; PULSE 47; RESP 16; TEMP 36.3; O2SAT 98
[2024-05-28] MEDS: Senna/Docusate Sodium 1 Tablet 2 TABLET PO (23:51)
[2024-05-29 04:00] VITALS: BP 126/76; PULSE 57; RESP 16; TEMP 36.4; O2SAT 96
[2024-05-29] MEDS: Vancomycin HCl 1,250 MG in 0.9% Normal Saline (250mL Bag) 250 ML 167 MG IV ×2 (04:45→12:38)
[2024-05-29] MEDS: Piperacil/Tazobactam 3.375 GM in 0.9% Normal Saline (50mL MB+) 50 ML IV ×3 (04:50→22:11)
[2024-05-29 05:11] LABS: Absolute Lymphocyte Count 1.58 X10^3/uL (0.83-4.51); Absolute Neutrophil Count 4.1 X10^3/uL (2.0-7.7); Basophil# 0.03 X10^3/uL; Basophil% 0.4 % (0-1); Eosinophil# 0.33 X10^3/uL; Eosinophils% 4.9 % (0-5); Hematocrit 33.7 % (40-54); Hemoglobin 11.2 g/dL (13.0-16.5); Lymphocyte # 1.58 X10^3/ul (0.83-4.51); Lymphocyte % 23.4 % (19-41); Mean Corp Hgb Conc 33.2 g/dL (32-36); Mean Corpuscular Hgb 33.8 pg (27.0-32.0); Mean Corpuscular Volume 101.8 fL (80-94); Monocyte% 10.4 % (0-10); NRBC Flagged by Analyzer 0 % (0-5); Neutrophil # 4.07 X10^3/uL (2.7-7.7); Neutrophil % 60.3 % (47-70); Platelet Count 169 K/mm3 (150-450); RBC Distribution Width CV 13.3 % (11.6-14.6); Red Blood Count 3.31 M/mm3 (4.6-6.2); White Blood Count 6.8 K/mm3 (4.4-11.0)
[2024-05-29 05:26] LABS: Anion Gap 3 (5-15); BUN 21 mg/dL (7-18); BUN/Creat Ratio 25.1 RATIO (10-20); Calcium,Total 8.9 mg/dL (8.5-10.1); Chloride 110 mmol/L (98-107); Creatinine, Serum 0.84 mg/dL (0.70-1.30); EST Glomerular Filtration Rate 94 mL/min (>60); Est Glom Filt Rate - Afr Amer 114 mL/min (>60); Estimated Creatinine Clearance 86.05 ml/min; Glucose 113 mg/dL (74-106); Potassium 3.8 mmol/L (3.5-5.1); Sodium Level 140 mmol/L (136-145)
[2024-05-29 06:39] VITALS: BMI 37.4
[2024-05-29] MEDS: Citalopram 10 MG Tablet PO (09:29)
[2024-05-29] MEDS: Amiodarone 200 MG Tablet 100 MG PO (09:29)
[2024-05-29] MEDS: Losartan Potassium 50 MG Tablet PO ×2 (09:29→22:02)
[2024-05-29] MEDS: Tamsulosin HCl 0.4 MG Capsule PO (09:30)
[2024-05-29] MEDS: Furosemide 40 MG Tablet PO (09:30)
[2024-05-29 09:45] VITALS: BP 146/62; PULSE 51; RESP 16; TEMP 36.6; O2SAT 97
[2024-05-29 09:46] VITALS: BP 146/62; PULSE 51
[2024-05-29] MEDS: Metoprolol Tartrate 25 MG Tablet PO ×2 (09:46→22:04)
[2024-05-29] MEDS: Allopurinol 300 MG Tablet PO (09:48)
--- NOTE | 2024-05-29 11:01 | PN.HOSP_ITS ---
Reason for Visit Reason for Visit: Diagnoses Cutaneous abscess, unspecified (05/26/24) Subjective Subjective Patient seen his submental abscess still remains indurated with significant drainage. Cultures so far positive for coagulase-negative staph as well as an alphahemolytic organism. Consult was placed to general surgery for consideration for possible repeat I&D Dr. Quiroz surgeon on-call notified Objective Data Objective Data Vital Signs: Vital Signs Temp Pulse Resp BP Pulse Ox O2 Del Method 97.8 F 51 L 16 146/62 H 97 Room Air 05/29/24 09:45 05/29/24 09:46 05/29/24 09:45 05/29/24 09:46 05/29/24 09:45 05/29/24 09:45 Oxygen Delivery Method Room Air Weight: 111.6 kg Body Mass Index (BMI) 37.4 Intake & Output: Intake and Output for Last 24 Hours 05/27/24 05/28/24 05/29/24 23:59 23:59 23:59 Intake Total 1300 / 1300 2310 / 2310 375 / 375 Balance 1300 / 1300 2310 / 2310 375 / 375 Lab / Micro Data 05/29/24 04:45 05/29/24 04:45 Labs: Laboratory Results - last 24 hr 05/29/24 04:45: WBC 6.8, RBC 3.31 L, Hgb 11.2 L, Hct 33.7 L, MCV 101.8 H, MCH 33.8 H, MCHC 33.2, RDW Std Deviation 50.0 H, RDW Coeff of Betsy 13.3, Plt Count 169, MPV 12.0, Immature Gran % (Auto) 0.600, Neut % (Auto) 60.3, Lymph % (Auto) 23.4, [place] % (Auto) 10.4 H, Eos % (Auto) 4.9, Baso % (Auto) 0.4, Absolute Neuts (auto) 4.1, Absolute Lymphs (auto) 1.58, Nucleated RBC % 0, Sodium 140, Potassium 3.8, Chloride 110 H, Carbon Dioxide 27.0, Anion Gap 3 L, BUN 21 H, Creatinine 0.84, Estim Creat Clear Calc 86.05, Est GFR (MDRD) Af Amer 114, Est GFR (MDRD) Non-Af 94, BUN/Creatinine Ratio 25.1 H, Glucose 113 H, Calcium 8.9 Micro: Microbiology 05/28/24 12:35 Nasal Secretion MRSA (PCR) - Final 05/26/24 16:50 Wound Abcess - Neck Gram Stain - Final 05/26/24 16:50 Wound Abcess - Neck Wound Culture - Preliminary Coag Negative Staph Alpha hemolytic organism Physical Exam Narrative GENERAL: cooperative HEENT: An area of induration under the right chin with packing EYES; Anicteric, Normal Conjunctiva NECK; supple, normal thyroid, RESPIRATORY: Diminished to auscultation CARDIOVASCULAR: Regular S1 S2, GI: soft, normoactive bowel sounds, : No Renal angle tenderness; EXTREMITIES: No edema, no clubbing, MUSCULOSKELETAL: no muscle wasting NEURO: Awake; no lateralizing signs. SKIN: As discussed above PSYCH; Flat affect Assessment & Plan Assessment/Plan (1) Abscess: PLAN: Plan Patient is a 78-year-old gentleman who underwent lymph node biopsy by interventional radiology subsequently developed swelling and erythema under the right chin treated with Keflex without much improvement presented back to the emergency department underwent I&D and subsequently admitted to regular nursing floor for further management 1. Submandibular abscess ? Status post I&D in the emergency department. Cultures were sent. Subsequently started on vancomycin and Zosyn ? 05/28/2024;Patient seen still continues to have copious drainage from his submandibular abscess. Repeated patient cultures only Gram stain was reported from his I&D in the emergency department. Also added MRSA PCR screen ? 05/29/2024;Patient seen his submental abscess still remains indurated with significant drainage. Cultures so far positive for coagulase-negative staph as well as an alphahemolytic organism. Consult was placed to general surgery for consideration for possible repeat I&D Dr. Quiroz surgeon on-call notified 2. Paroxysmal atrial fibrillation ? Status post previous RFA and cardioversion. Patient currently on amiodarone and metoprolol for rate control and systemic anticoagulation with apixaban 3. Hypertension ? Blood pressure controlled, home medications continued with dose adjustment as needed 4. Dyslipidemia ?Patient is on statin therapy, continued at home dose 5. BPH with lower urinary obstructive symptoms - Patient treated with tamsulosin 6. Depression with anxiety ? Patient is on escitalopram did continue 7. Anemia ? Secondary to chronic disorder monitoring H&H and transfuse if patient becomes symptomatic or hemoglobin falls below 7 8. Gout ? Patient is on allopurinol 9. Chronic congestive heart failure with preserved ejection fraction ? Echo from 04/04/2021 demonstrated EF of 55% with PASP of 40 mmHg with diastolic dysfunction. Patient is on furosemide. Currently remains euvolemic 10. Obstructive sleep apnea ? Per history consistent use of PAP therapy encouraged 11. DVT prophylaxis ? Already on apixaban Time spent in the patient's overall evaluation,decision-making process, review of diagnostic data, adjustment of management, discussion with other providers, nursing nursing and ancillary staff involved in patient's care documentation, 38 minutes Charges/Coding Visit Charges Inpatient E&M: 97506 Subs Hosp L2
[2024-05-29] MEDS: 0.9% Saline Lock 10 ML Syringe IV ×3 (12:35→22:10)
--- NOTE | 2024-05-29 14:06 | EX.PCM.CON.S ---
Assessment & Plan Assessment/Plan (1) Abscess: PLAN: Patient has a large abscess on his anterior neck on the right. I removed the packing at the bedside and probed the abscess and there are no other loculations to break up or any other fluctuance or more purulent material. My only recommendation would be to pack less gauze into it so that the cavity can start to collapse. I do not believe there is anything further to incise or drain. Ángel Quiroz MD Pager: [facility] [address] [place] [address], [address] [place] [address] Office: HPI Consult Data Date of Consult: 05/29/24 HPI Narrative HPI Narrative: ANTOINE PEREZ, is a 78 M who presents with facial abscess. The patient reports that he had a biopsy done of his skin lesion and this got infected. The patient had this area incised on Friday. He has been in the hospital since on IV antibiotics. [facility] Medical History Wears hearing aid Depression Alcohol use Bladder disease History of diverticulitis Former smoker Varicose vein of leg History of stress test History of echocardiogram History of Holter monitoring Cardiology follow-up encounter History of atrial fibrillation Bradycardia Typical atrial flutter Left bundle branch block (LBBB) TIMOTHY (obstructive sleep apnea) BPH (benign prostatic hyperplasia) Back pain Thoracic neuritis Segmental and somatic dysfunction of pelvic region Segmental and somatic dysfunction of lumbar region Segmental and somatic dysfunction of thoracic region Fatigue Chronic systolic (congestive) heart failure Obesity Non-ischemic cardiomyopathy Hyperlipidemia Segmental and somatic dysfunction of thoracic region Acute cervical sprain Segmental and somatic dysfunction of cervical region Osteoarthritis Arthritis Benign essential hypertension Home Medications ?Medication ?Instructions ?Recorded ?Last Taken ?Type pravastatin 40 mg tablet 40 mg PO QHS cholesterol 03/02/18 05/25/24 History tamsulosin 0.4 mg capsule 0.4 mg PO DAILY prostate 03/05/18 05/26/24 History allopurinol 300 mg tablet 300 mg PO DAILY gout 01/05/20 05/26/24 History cholecalciferol (vitamin D3) 125 125 mcg PO DAILY supplment 07/19/20 05/26/24 History mcg (5,000 unit) capsule citalopram 10 mg tablet 10 mg PO DAILY depression 07/19/20 05/26/24 History lactobacillus combination no.8 3 1 cell PO QHS probiotic 11/17/20 05/26/24 History billion cell capsule metronidazole 0.75 % topical gel 1 applic topical DAILY PRN SKIN 02/27/21 05/26/24 History losartan 50 mg tablet 50 mg PO BID bp #180 tabs 11/01/21 05/26/24 Rx furosemide 40 mg tablet See Rx Instructions .Route 03/17/23 05/26/24 Rx .COMPLEX water pill #90 tabs apixaban 5 mg tablet (Eliquis) 5 mg PO BID blood thinner 07/14/23 05/25/24 History amiodarone 200 mg tablet 100 mg (1/2 x 200 mg) PO DAILY 07/24/23 05/26/24 Rx blood pressure #45 tabs acetaminophen 650 mg 650 mg PO Q12H PRN fever or pain 03/09/24 05/26/24 History tablet,extended release (Tylenol Arthritis Pain) metoprolol tartrate 25 mg tablet 25 mg PO BID bp #180 tabs 05/10/24 Unknown Rx cephalexin 500 mg capsule 500 mg PO Q6 antibiotic #40 05/23/24 05/26/24 Rx CAPSULES potassium chloride 20 mEq 20 meq PO DAILY replacement 05/27/24 Unknown History tablet,extended release(part/cryst) (Klor-Con M) Allergy/AdvReac Type Severity Reaction Status Date / Time Sulfa (Sulfonamide Allergy Intermediate Hives Verified 05/26/24 12:57 Antibiotics) Family History (Updated 05/26/24 @ 17:[address] Fabiola Lowery MD) Son Asthma Mother Hypertension HLD (hyperlipidemia) Father , in [place] No problems noted. Surgical History History of urethrotomy (~03/2023) Hx of arthroscopy of knee Hx of arthroplasty Hx of colonoscopy History of radiofrequency ablation procedure for cardiac arrhythmia (08/03/20) History of cardioversion (03/27/20) History of cataract surgery History of laparoscopic cholecystectomy History of colectomy History of knee surgery Social History (Updated 05/26/24 @ 17:[address] Fabiola Lowery MD) household members: spouse Smoking Status: Former smoker how long ago did patient quit smoking: Quit 30 yrs prior (05/24/24) with max 1 ppd since teen until quit. alcohol intake: current alcohol intake frequency: a few times a week details: Notes 1-2 beers 4-5x/week. substance use type: does not use ROS Constitutional Constitutional: Denies anorexia, chills or fatigue Eyes Eyes: Denies blurry vision ENT HEENT: Denies abnormal hearing Gastrointestinal Gastrointestinal: Denies abdominal pain or bloating Genitourinary Genitourinary: Denies change in urinary stream Musculoskeletal Musculoskeletal: Denies abnormal gait Integumentary Integumentary: Denies jaundice Psychiatric Psychiatric: Denies anxiety Endocrine Endocrinology: Denies flushing Physical Exam Const alert and oriented x3 HEENT normocephalic HEENT Narrative: Large abscess in the right submental space Lab / Micro Data 05/29/24 04:45 05/29/24 04:45 Labs: Laboratory Results - last 24 hr 05/29/24 04:45: WBC 6.8, RBC 3.31 L, Hgb 11.2 L, Hct 33.7 L, MCV 101.8 H, MCH 33.8 H, MCHC 33.2, RDW Std Deviation 50.0 H, RDW Coeff of Betsy 13.3, Plt Count 169, MPV 12.0, Immature Gran % (Auto) 0.600, Neut % (Auto) 60.3, Lymph % (Auto) 23.4, [place] % (Auto) 10.4 H, Eos % (Auto) 4.9, Baso % (Auto) 0.4, Absolute Neuts (auto) 4.1, Absolute Lymphs (auto) 1.58, Nucleated RBC % 0, Sodium 140, Potassium 3.8, Chloride 110 H, Carbon Dioxide 27.0, Anion Gap 3 L, BUN 21 H, Creatinine 0.84, Estim Creat Clear Calc 86.05, Est GFR (MDRD) Af Amer 114, Est GFR (MDRD) Non-Af 94, BUN/Creatinine Ratio 25.1 H, Glucose 113 H, Calcium 8.9 Micro: Microbiology 05/26/24 16:50 Wound Abcess - Neck Gram Stain - Final 05/26/24 16:50 Wound Abcess - Neck Wound Culture - Preliminary Coag Negative Staph Alpha hemolytic organism 05/28/24 12:35 Nasal Secretion MRSA (PCR) - Final
--- NOTE | 2024-05-29 21:18 | PCM.RX.CS ---
Consult Antibiotic Management Pharmacy has been consulted to manage selected antibiotic: Vancomycin Type of Intervention Type of Consult: Follow-up Labs Labs: Sodium 140 mmol/L (136-145) 05/29/24 04:45 Potassium 3.8 mmol/L (3.5-5.1) 05/29/24 04:45 Chloride 110 mmol/L (98-107) H 05/29/24 04:45 Carbon Dioxide 27.0 mmol/L (21.0-32.0) 05/29/24 04:45 Anion Gap 3 (5-15) L 05/29/24 04:45 BUN 21 mg/dL (7-18) H 05/29/24 04:45 Creatinine 0.84 mg/dL (0.70-1.30) 05/29/24 04:45 Est GFR (MDRD) Af Amer 114 mL/min (>60) 05/29/24 04:45 Est GFR (MDRD) Non-Af 94 mL/min (>60) 05/29/24 04:45 BUN/Creatinine Ratio 25.1 RATIO (10-20) H 05/29/24 04:45 Glucose 113 mg/dL (74-106) H 05/29/24 04:45 Vancomycin Trough 29.0 ug/mL (5.0-15.0) H 05/29/24 19:25 Microbiology Microbiology: Microbiology 05/26/24 16:50 Wound Abcess - Neck Gram Stain - Final 05/26/24 16:50 Wound Abcess - Neck Wound Culture - Preliminary Coag Negative Staph Alpha hemolytic organism 05/28/24 12:35 Nasal Secretion MRSA (PCR) - Final Goal Trough Goal Trough: 15-20 mcg/mL Pharmacy Plan for Drug Dosing Pharmacy Plan for Drug Dosing: Pharmacy Service will continue to monitor and adjust dosing as required. TROUGH 29 @ 7 HOURS. HOLD DOSE AND DRAW RANDOM LEVEL IN 8 HOURS Follow-Up Labs Follow-Up Labs: Trough: Vancomycin Date/Time Labs Ordered Labs to be done on [date and time ordered]: 05/30 @ 6698
[2024-05-29 21:57] VITALS: BP 140/69; PULSE 49; RESP 16; TEMP 37.1; O2SAT 94
[2024-05-29] MEDS: Vancomycin Trough/Random Due 1 LAB MC (21:59)
[2024-05-29] MEDS: Lactobacillis Acidophilus 1 CAP PO (22:02)
[2024-05-29] MEDS: Acetaminophen 325 MG Tablet 650 MG PO (22:03)
[2024-05-29] MEDS: Senna/Docusate Sodium 1 Tablet 2 TABLET PO (22:03)
[2024-05-29] MEDS: Pravastatin 40 MG Tablet PO (22:03)
[2024-05-29 22:04] VITALS: BP 140/69; PULSE 49
[2024-05-30 04:05] LABS: Absolute Lymphocyte Count 1.58 X10^3/uL (0.83-4.51); Absolute Neutrophil Count 3.9 X10^3/uL (2.0-7.7); Basophil# 0.02 X10^3/uL; Basophil% 0.3 % (0-1); Eosinophil# 0.28 X10^3/uL; Eosinophils% 4.2 % (0-5); Hematocrit 34.4 % (40-54); Hemoglobin 11.2 g/dL (13.0-16.5); Lymphocyte # 1.58 X10^3/ul (0.83-4.51); Lymphocyte % 23.9 % (19-41); Mean Corp Hgb Conc 32.6 g/dL (32-36); Mean Corpuscular Hgb 33.2 pg (27.0-32.0); Mean Corpuscular Volume 102.1 fL (80-94); Mean Platelet Vol. 11.6 fl (6.2-12.0); Monocyte# 0.78 X10^3/uL; Monocyte% 11.8 % (0-10); NRBC Flagged by Analyzer 0 % (0-5); Neutrophil % 59.2 % (47-70); Platelet Count 173 K/mm3 (150-450); RBC Distribution Width CV 13.2 % (11.6-14.6); RBC Distribution Width SD 49.9 fl (35.1-43.9); Red Blood Count 3.37 M/mm3 (4.6-6.2); White Blood Count 6.6 K/mm3 (4.4-11.0)
[2024-05-30 04:23] LABS: Anion Gap 4 (5-15); BUN 21 mg/dL (7-18); BUN/Creat Ratio 26.6 RATIO (10-20); Chloride 110 mmol/L (98-107); Creatinine, Serum 0.79 mg/dL (0.70-1.30); EST Glomerular Filtration Rate 100 mL/min (>60); Est Glom Filt Rate - Afr Amer 122 mL/min (>60); Estimated Creatinine Clearance 90.74 ml/min; Glucose 102 mg/dL (74-106); Potassium 3.7 mmol/L (3.5-5.1); Sodium Level 140 mmol/L (136-145)
[2024-05-30 04:26] LABS: Vancomycin, Random Level 21.9 ug/mL (0.0-15.0)
[2024-05-30 04:30] VITALS: BP 149/64; PULSE 50; RESP 16; TEMP 36.6; O2SAT 96
[2024-05-30] MEDS: Vancomycin Trough/Random Due 1 LAB MC ×2 (04:36→12:58)
[2024-05-30] MEDS: Acetaminophen 325 MG Tablet 650 MG PO ×2 (04:36→22:17)
[2024-05-30] MEDS: Piperacil/Tazobactam 3.375 GM in 0.9% Normal Saline (50mL MB+) 50 ML IV ×3 (05:41→22:14)
--- NOTE | 2024-05-30 06:30 | PCM.RX.CS ---
Consult Antibiotic Management Pharmacy has been consulted to manage selected antibiotic: Vancomycin Type of Intervention Type of Consult: Follow-up Labs Labs: Sodium 140 mmol/L (136-145) 05/30/24 03:45 Potassium 3.7 mmol/L (3.5-5.1) 05/30/24 03:45 Chloride 110 mmol/L (98-107) H 05/30/24 03:45 Carbon Dioxide 27.0 mmol/L (21.0-32.0) 05/30/24 03:45 Anion Gap 4 (5-15) L 05/30/24 03:45 BUN 21 mg/dL (7-18) H 05/30/24 03:45 Creatinine 0.79 mg/dL (0.70-1.30) 05/30/24 03:45 Est GFR (MDRD) Af Amer 122 mL/min (>60) 05/30/24 03:45 Est GFR (MDRD) Non-Af 100 mL/min (>60) 05/30/24 03:45 BUN/Creatinine Ratio 26.6 RATIO (10-20) H 05/30/24 03:45 Glucose 102 mg/dL (74-106) 05/30/24 03:45 Vancomycin Trough 29.0 ug/mL (5.0-15.0) H 05/29/24 19:25 Random Vancomycin 21.9 ug/mL (0.0-15.0) H 05/30/24 03:45 Microbiology Microbiology: Microbiology 05/26/24 16:50 Wound Abcess - Neck Gram Stain - Final 05/26/24 16:50 Wound Abcess - Neck Wound Culture - Preliminary Coag Negative Staph Alpha hemolytic organism 05/28/24 12:35 Nasal Secretion MRSA (PCR) - Final Goal Trough Goal Trough: 15-20 mcg/mL Pharmacy Plan for Drug Dosing Pharmacy Plan for Drug Dosing: Pharmacy Service will continue to monitor and adjust dosing as required. RANDOM LEVEL 21.9, DRAW RANDOM LEVEL IN 8 HOURS Follow-Up Labs Follow-Up Labs: Trough: Vancomycin Date/Time Labs Ordered Labs to be done on [date and time ordered]: 05/30 @ 9380
--- NOTE | 2024-05-30 07:36 | PCM.PN.HOSP ---
Reason for Visit Reason for Visit: Diagnoses Cutaneous abscess, unspecified (05/26/24) Subjective Subjective Patient seen, had a relatively uneventful night. Consult was placed to Dr. Quiroz regarding patient submandibular abscess he did repacking. Cultures obtained following patient's I&D on admission still pending. Objective Data Objective Data Vital Signs: Vital Signs Temp Pulse Resp BP Pulse Ox O2 Del Method 97.9 F 50 L 16 149/64 H 96 Room Air 05/30/24 04:30 05/30/24 04:30 05/30/24 04:30 05/30/24 04:30 05/30/24 04:30 05/30/24 04:30 Oxygen Delivery Method Room Air Weight: 111.6 kg Body Mass Index (BMI) 37.4 Intake & Output: Intake and Output for Last 24 Hours 05/28/24 05/29/24 05/30/24 23:59 23:59 23:59 Intake Total 2310 / 2310 1060 / 1060 50 / 50 Balance 2310 / 2310 1060 / 1060 50 / 50 Lab / Micro Data 05/30/24 03:45 05/30/24 03:45 Labs: Laboratory Results - last 24 hr 05/29/24 19:25: Vancomycin Trough 29.0 H 05/30/24 03:45: WBC 6.6, RBC 3.37 L, Hgb 11.2 L, Hct 34.4 L, MCV 102.1 H, MCH 33.2 H, MCHC 32.6, RDW Std Deviation 49.9 H, RDW Coeff of Betsy 13.2, Plt Count 173, MPV 11.6, Immature Gran % (Auto) 0.600, Neut % (Auto) 59.2, Lymph % (Auto) 23.9, [place] % (Auto) 11.8 H, Eos % (Auto) 4.2, Baso % (Auto) 0.3, Absolute Neuts (auto) 3.9, Absolute Lymphs (auto) 1.58, Nucleated RBC % 0, Sodium 140, Potassium 3.7, Chloride 110 H, Carbon Dioxide 27.0, Anion Gap 4 L, BUN 21 H, Creatinine 0.79, Estim Creat Clear Calc 90.74, Est GFR (MDRD) Af Amer 122, Est GFR (MDRD) Non-Af 100, BUN/Creatinine Ratio 26.6 H, Glucose 102, Calcium 9.0, Random Vancomycin 21.9 H Micro: Microbiology 05/26/24 16:50 Wound Abcess - Neck Gram Stain - Final 05/26/24 16:50 Wound Abcess - Neck Wound Culture - Preliminary Coag Negative Staph Alpha hemolytic organism 05/28/24 12:35 Nasal Secretion MRSA (PCR) - Final Physical Exam Narrative GENERAL: cooperative HEENT: An area of induration under the right chin with packing EYES; Anicteric, Normal Conjunctiva NECK; supple, normal thyroid, RESPIRATORY: Diminished to auscultation CARDIOVASCULAR: Regular S1 S2, GI: soft, normoactive bowel sounds, : No Renal angle tenderness; EXTREMITIES: No edema, no clubbing, MUSCULOSKELETAL: no muscle wasting NEURO: Awake; no lateralizing signs. SKIN: As discussed above PSYCH; Flat affect Assessment & Plan Assessment/Plan (1) Abscess: PLAN: Plan Patient is a 78-year-old gentleman who underwent lymph node biopsy by interventional radiology subsequently developed swelling and erythema under the right chin treated with Keflex without much improvement presented back to the emergency department underwent I&D and subsequently admitted to regular nursing floor for further management 1. Submandibular abscess ? Status post I&D in the emergency department. Cultures were sent. Subsequently started on vancomycin and Zosyn ? 05/28/2024;Patient seen still continues to have copious drainage from his submandibular abscess. Repeated patient cultures only Gram stain was reported from his I&D in the emergency department. Also added MRSA PCR screen ? 05/29/2024;Patient seen his submental abscess still remains indurated with significant drainage. Cultures so far positive for coagulase-negative staph as well as an alphahemolytic organism. Consult was placed to general surgery for consideration for possible repeat I&D Dr. Quiroz surgeon on-call notified ? 05/30/2024; Consult was placed to Dr. Quiroz regarding patient submandibular abscess he did repacking. Cultures obtained following patient's I&D on admission still pending. 2. Paroxysmal atrial fibrillation ? Status post previous RFA and cardioversion. Patient currently on amiodarone and metoprolol for rate control and systemic anticoagulation with apixaban 3. Hypertension ? Blood pressure controlled, home medications continued with dose adjustment as needed 4. Dyslipidemia ?Patient is on statin therapy, continued at home dose 5. BPH with lower urinary obstructive symptoms - Patient treated with tamsulosin 6. Depression with anxiety ? Patient is on escitalopram did continue 7. Anemia ? Secondary to chronic disorder monitoring H&H and transfuse if patient becomes symptomatic or hemoglobin falls below 7 8. Gout ? Patient is on allopurinol 9. Chronic congestive heart failure with preserved ejection fraction ? Echo from 04/04/2021 demonstrated EF of 55% with PASP of 40 mmHg with diastolic dysfunction. Patient is on furosemide. Currently remains euvolemic 10. Obstructive sleep apnea ? Per history consistent use of PAP therapy encouraged 11. DVT prophylaxis ? Already on apixaban Time spent in the patient's overall evaluation,decision-making process, review of diagnostic data, adjustment of management, discussion with other providers, nursing nursing and ancillary staff involved in patient's care documentation, 36 minutes Charges/Coding Visit Charges Inpatient E&M: 99318 Subs Hosp L2
[2024-05-30 09:34] VITALS: BP 147/57; PULSE 60; RESP 14; TEMP 36.6; O2SAT 98
[2024-05-30] MEDS: Losartan Potassium 50 MG Tablet PO ×2 (09:38→22:17)
[2024-05-30] MEDS: Citalopram 10 MG Tablet PO (09:38)
[2024-05-30] MEDS: Amiodarone 200 MG Tablet 100 MG PO (09:38)
[2024-05-30 09:39] VITALS: BP 147/57; PULSE 60
[2024-05-30] MEDS: Tamsulosin HCl 0.4 MG Capsule PO (09:39)
[2024-05-30] MEDS: Metoprolol Tartrate 25 MG Tablet PO ×2 (09:39→22:17)
[2024-05-30] MEDS: Furosemide 40 MG Tablet PO (09:39)
[2024-05-30] MEDS: Allopurinol 300 MG Tablet PO (09:40)
--- NOTE | 2024-05-30 12:27 | PCM.RX.CS ---
Consult Antibiotic Management Pharmacy has been consulted to manage selected antibiotic: Vancomycin Type of Intervention Type of Consult: Follow-up Prior Doses of Antibiotics Prior Doses of Antibiotics Received/Current Regimen: dose is currently being held due to high trough values but the most recent dose was 1250mg IV q8h Labs Labs: Sodium 140 mmol/L (136-145) 05/30/24 03:45 Potassium 3.7 mmol/L (3.5-5.1) 05/30/24 03:45 Chloride 110 mmol/L (98-107) H 05/30/24 03:45 Carbon Dioxide 27.0 mmol/L (21.0-32.0) 05/30/24 03:45 Anion Gap 4 (5-15) L 05/30/24 03:45 BUN 21 mg/dL (7-18) H 05/30/24 03:45 Creatinine 0.79 mg/dL (0.70-1.30) 05/30/24 03:45 Est GFR (MDRD) Af Amer 122 mL/min (>60) 05/30/24 03:45 Est GFR (MDRD) Non-Af 100 mL/min (>60) 05/30/24 03:45 BUN/Creatinine Ratio 26.6 RATIO (10-20) H 05/30/24 03:45 Glucose 102 mg/dL (74-106) 05/30/24 03:45 Vancomycin Trough 29.0 ug/mL (5.0-15.0) H 05/29/24 19:25 Random Vancomycin 16.0 ug/mL (0.0-15.0) H 05/30/24 11:15 Microbiology Microbiology: Microbiology 05/26/24 16:50 Wound Abcess - Neck Gram Stain - Final 05/26/24 16:50 Wound Abcess - Neck Wound Culture - Preliminary Coag Negative Staph Alpha hemolytic organism 05/28/24 12:35 Nasal Secretion MRSA (PCR) - Final Dosing Weight Weight used for dosin.6 kg Estimated Creatinine Clearance Estimated Creatinine Clearance: 91 ml/min Goal Trough Goal Trough: 15-20 mcg/mL Pharmacy Plan for Drug Dosing Pharmacy Plan for Drug Dosing: The vanc random level drawn at 11:15 today was 16.0. This is back below 20 so will resume dosing at a newly calculated dose of 1000mg IV q12h. Will check a trough level for this new dose before the 4th dose. Pharmacy Service will continue to monitor and adjust dosing as required. Follow-Up Labs Follow-Up Labs: Trough: Vancomycin Date/Time Labs Ordered Labs to be done on [date and time ordered]: 06/01/24 00:30
[2024-05-30] MEDS: 0.9% Saline Lock 10 ML Syringe IV ×2 (12:57→14:33)
[2024-05-30] MEDS: Vancomycin IV 1,000 MG/200 ML BAG 200 MG IV (12:57)
[2024-05-30 14:35] VITALS: BP 137/86; PULSE 52; RESP 18; TEMP 36.3; O2SAT 98
[2024-05-30 22:17] VITALS: PULSE 55
[2024-05-30] MEDS: Lactobacillis Acidophilus 1 CAP PO (22:17)
[2024-05-30] MEDS: Pravastatin 40 MG Tablet PO (22:17)
[2024-05-30] MEDS: Senna/Docusate Sodium 1 Tablet 2 TABLET PO (22:21)
[2024-05-30 22:24] VITALS: BP 151/53; PULSE 55; RESP 18; TEMP 36.4; O2SAT 97
[2024-05-31 04:29] VITALS: BMI 37.4
[2024-05-31 05:22] VITALS: BP 143/60; PULSE 56; RESP 16; TEMP 36.5; O2SAT 95
[2024-05-31] MEDS: Piperacil/Tazobactam 3.375 GM in 0.9% Normal Saline (50mL MB+) 50 ML IV (05:25)
[2024-05-31 06:21] LABS: Absolute Lymphocyte Count 1.65 X10^3/uL (0.83-4.51); Absolute Neutrophil Count 4.8 X10^3/uL (2.0-7.7); Basophil# 0.03 X10^3/uL; Basophil% 0.4 % (0-1); Hematocrit 34.3 % (40-54); Hemoglobin 11.5 g/dL (13.0-16.5); Lymphocyte # 1.65 X10^3/ul (0.83-4.51); Lymphocyte % 21.8 % (19-41); Mean Corp Hgb Conc 33.5 g/dL (32-36); Mean Corpuscular Hgb 33.9 pg (27.0-32.0); Mean Corpuscular Volume 101.2 fL (80-94); Mean Platelet Vol. 11.5 fl (6.2-12.0); Monocyte# 0.77 X10^3/uL; Monocyte% 10.2 % (0-10); NRBC Flagged by Analyzer 0 % (0-5); Neutrophil # 4.75 X10^3/uL (2.7-7.7); Neutrophil % 62.5 % (47-70); Platelet Count 173 K/mm3 (150-450); RBC Distribution Width CV 13.2 % (11.6-14.6); RBC Distribution Width SD 49.2 fl (35.1-43.9); Red Blood Count 3.39 M/mm3 (4.6-6.2); White Blood Count 7.6 K/mm3 (4.4-11.0)
[2024-05-31 06:53] LABS: Anion Gap 4 (5-15); BUN 22 mg/dL (7-18); BUN/Creat Ratio 26.6 RATIO (10-20); Calcium,Total 9.1 mg/dL (8.5-10.1); Chloride 109 mmol/L (98-107); Creatinine, Serum 0.83 mg/dL (0.70-1.30); EST Glomerular Filtration Rate 95 mL/min (>60); Est Glom Filt Rate - Afr Amer 115 mL/min (>60); Estimated Creatinine Clearance 87.46 ml/min; Glucose 107 mg/dL (74-106); Potassium 3.7 mmol/L (3.5-5.1); Sodium Level 140 mmol/L (136-145)
[2024-05-31 09:48] VITALS: BP 143/64; PULSE 55; RESP 16; TEMP 36.5; O2SAT 96
[2024-05-31 09:50] VITALS: PULSE 55
[2024-05-31] MEDS: Metoprolol Tartrate 25 MG Tablet PO (09:50)
[2024-05-31] MEDS: Amiodarone 200 MG Tablet 100 MG PO (09:50)
[2024-05-31] MEDS: Furosemide 40 MG Tablet PO (09:51)
[2024-05-31] MEDS: Citalopram 10 MG Tablet PO (09:51)
[2024-05-31] MEDS: Allopurinol 300 MG Tablet PO (09:51)
[2024-05-31] MEDS: Tamsulosin HCl 0.4 MG Capsule PO (09:51)
[2024-05-31] MEDS: Losartan Potassium 50 MG Tablet PO (09:51)
--- NOTE | 2024-05-31 10:00 | PN.HOSP_ITS ---
Reason for Visit Reason for Visit: Diagnoses Cutaneous abscess, unspecified (05/26/24) Objective Data Objective Data Vital Signs: Vital Signs Temp Pulse Resp BP Pulse Ox O2 Del Method 97.7 F L 55 L 16 143/64 H 96 Room Air 05/31/24 09:48 05/31/24 09:50 05/31/24 09:48 05/31/24 09:48 05/31/24 09:48 05/31/24 09:48 Oxygen Delivery Method Room Air Weight: 246 lb 0.574 oz Body Mass Index (BMI) 37.4 Intake & Output: Intake and Output for Last 24 Hours 05/29/24 05/30/24 05/31/24 23:59 23:59 23:59 Intake Total 1060 / 1060 350 / 590 290 / 290 Balance 1060 / 1060 350 / 590 290 / 290 Lab / Micro Data 05/31/24 06:07 05/31/24 06:07 Labs: Laboratory Results - last 24 hr 05/30/24 11:15: Random Vancomycin 16.0 H 05/31/24 06:07: WBC 7.6, RBC 3.39 L, Hgb 11.5 L, Hct 34.3 L, MCV 101.2 H, MCH 33.9 H, MCHC 33.5, RDW Std Deviation 49.2 H, RDW Coeff of Betsy 13.2, Plt Count 173, MPV 11.5, Immature Gran % (Auto) 1.100 H, Neut % (Auto) 62.5, Lymph % (Auto) 21.8, [place] % (Auto) 10.2 H, Eos % (Auto) 4.0, Baso % (Auto) 0.4, Absolute Neuts (auto) 4.8, Absolute Lymphs (auto) 1.65, Nucleated RBC % 0, Sodium 140, Potassium 3.7, Chloride 109 H, Carbon Dioxide 27.0, Anion Gap 4 L, BUN 22 H, Creatinine 0.83, Estim Creat Clear Calc 87.46, Est GFR (MDRD) Af Amer 115, Est GFR (MDRD) Non-Af 95, BUN/Creatinine Ratio 26.6 H, Glucose 107 H, Calcium 9.1 Micro: Microbiology 05/26/24 16:50 Wound Abcess - Neck Gram Stain - Final 05/26/24 16:50 Wound Abcess - Neck Wound Culture - Final Coag Negative Staph [place] odontolyticus 05/28/24 12:35 Nasal Secretion MRSA (PCR) - Final Assessment & Plan Assessment/Plan (1) Abscess: PLAN: Plan Patient is a 78-year-old gentleman who underwent lymph node biopsy by interventional radiology subsequently developed swelling and erythema under the right chin treated with Keflex without much improvement presented back to the emergency department underwent I&D and subsequently admitted to regular nursing floor for further management 1. Submandibular abscess ? Status post I&D in the emergency department. Cultures were sent. Subsequently started on vancomycin and Zosyn ? 05/28/2024;Patient seen still continues to have copious drainage from his submandibular abscess. Repeated patient cultures only Gram stain was reported from his I&D in the emergency department. Also added MRSA PCR screen ? 05/29/2024;Patient seen his submental abscess still remains indurated with significant drainage. Cultures so far positive for coagulase-negative staph as well as an alphahemolytic organism. Consult was placed to general surgery for consideration for possible repeat I&D Dr. Quiroz surgeon on-call notified ? 05/30/2024; Consult was placed to Dr. Quiroz regarding patient submandibular abscess he did repacking. Cultures obtained following patient's I&D on admission still pending. 2. Paroxysmal atrial fibrillation ? Status post previous RFA and cardioversion. Patient currently on amiodarone and metoprolol for rate control and systemic anticoagulation with apixaban 3. Hypertension ? Blood pressure controlled, home medications continued with dose adjustment as needed 4. Dyslipidemia ?Patient is on statin therapy, continued at home dose 5. BPH with lower urinary obstructive symptoms - Patient treated with tamsulosin 6. Depression with anxiety ? Patient is on escitalopram did continue 7. Anemia ? Secondary to chronic disorder monitoring H&H and transfuse if patient becomes symptomatic or hemoglobin falls below 7 8. Gout ? Patient is on allopurinol 9. Chronic congestive heart failure with preserved ejection fraction ? Echo from 04/04/2021 demonstrated EF of 55% with PASP of 40 mmHg with diastolic dysfunction. Patient is on furosemide. Currently remains euvolemic 10. Obstructive sleep apnea ? Per history consistent use of PAP therapy encouraged 11. DVT prophylaxis ? Already on apixaban Time spent in the patient's overall evaluation,decision-making process, review of diagnostic data, adjustment of management, discussion with other providers, nursing nursing and ancillary staff involved in patient's care documentation, 36 minutes
--- NOTE | 2024-05-31 10:55 | DCINST_ITS ---
Discharge Instructions DC O2, CPAP, BIPAP needs Home O2 Discharge instructions: No Follow Up Care Test Results: Test results from this visit will be discussed in further detail at your follow- up appointment, if applicable. Discharge Plan Admission Admit Date/Time: 05/26/24 16:30 Primary Reason for Your Visit: Outside surgical site infection/abscess Attending Provider: Keith Kuhn Primary Care Provider: Vinod Kirby Chi Consulting Providers: Fabiola Lowery; Ángel Quiroz; Jluis Carter Instructions Additional Instructions / Restrictions: Advised [id number] probiotic, lactobacillus 1 tablet twice daily for 1 week. Follow-up in the wound center in 3 days. Discharge Orders/Prescriptions Prescriptions: New amoxicillin-pot clavulanate 875-125 mg tablet 1 tab PO BID 5 Days Qty: 10 0RF Continued pravastatin 40 mg tablet 40 mg PO QHS citalopram 10 mg tablet 10 mg PO DAILY cholecalciferol (vitamin D3) 125 mcg (5,000 unit) capsule 125 mcg PO DAILY lactobacillus combination no.8 3 billion cell capsule 1 cell PO QHS acetaminophen [Tylenol Arthritis Pain] 650 mg tablet extended release 650 mg PO Q12H PRN (Reason: fever or pain) metronidazole 0.75 % gel 1 applic topical DAILY PRN (Reason: SKIN) tamsulosin 0.4 MG capsule 0.4 mg PO DAILY allopurinol 300 MG tablet 300 mg PO DAILY potassium chloride [Klor-Con M20] 20 mEq tablet,ER particles/crystals 20 meq PO DAILY losartan 50 mg tablet 50 mg PO BID Qty: 180 3RF furosemide 40 mg tablet See Rx Instructions .ROUTE .COMPLEX Qty: 90 3RF Dose Instruction: TAKE 1 TABLET BY MOUTH EVERY DAY Rx Instructions: TAKE 1 TABLET BY MOUTH EVERY DAY amiodarone 200 mg tablet 100 mg PO DAILY Qty: 45 3RF metoprolol tartrate 25 mg tablet 25 mg PO BID Qty: 180 3RF Held Eliquis 5 mg tablet 5 mg PO BID Hold Instructions: Start from 06/01/2024 Patient Comments: TAKE 1 TABLET BY MOUTH TWICE A DAY Discontinued cephalexin 500 mg capsule 500 mg PO Q6 Qty: 40 0RF Referrals / Follow Up: Forest Kuhn MD [Med Staff - Active Staff] - Within 1 Week (In the wound center) Vinod Kirby Chi, MD [Primary Care Provider] - Within 2 Weeks Disposition Disposition (needs filled in before D/C Order can be placed): Home, Self Care
--- NOTE | 2024-05-31 11:24 | WOUNDNOTE ---
Pt had questions about packing and dressing changes for home. instructed patient to cleanse skin with soap and water prior to changing the packing. showed patient that approx 1 of packing strip is plenty to pack in and still have a small tail to pull with removal. covered packing with a folded 4x4 and secured with a small amount of tape. the duoderm was falling off the skin so that was removed and the tape was just secured to the skin. pt very appreciative of the teaching and states now I feel better about doing it at home. pt states will also be able to assist. will monitor.
--- NOTE | 2024-05-31 11:39 | WOUNDNOTE ---
wound photo: left foot
--- NOTE | 2024-05-31 11:40 | WOUNDNOTE ---
wound photo: left foot
--- NOTE | 2024-05-31 11:40 | WOUNDNOTE ---
wound photo: left lower leg/foot
--- NOTE | 2024-05-31 13:05 | DS.PCM_ITS ---
Providers Date of Admission: 05/26/24 Date of Discharge: 05/31/24 Primary Care Physician: Dr. Vinod Kirby MD Consultations 05/28/24 09:25 Consult: Onc/Wound/clinical services manager Routine Comment: Reason for Consult:: right neck 05/29/24 10:59 Consult: General Surgery Routine Consulting Provider: Ángel Quiroz Reason for Consult: Submental abscess EMERGENT Consult: No MD Notified: Yes Date Notified: 05/29/24 Time Notified: 10:59 Method of Notification: Verbal Reason For Visit: R SUBMENTAL ABSCESS A/P BX Diagnosis Discharge Diagnosis (1) Abscess: Status: Acute Code(s): L02.91 - Cutaneous abscess, unspecified Plan Patient is a 78-year-old gentleman who underwent lymph node biopsy by interventional radiology subsequently developed swelling and erythema under the right chin treated with Keflex without much improvement presented back to the emergency department underwent I&D and subsequently admitted to regular nursing floor for further management 1. Submandibular abscess ? Status post I&D in the emergency department. Cultures were sent. Subsequently started on vancomycin and Zosyn ? 05/28/2024;Patient seen still continues to have copious drainage from his submandibular abscess. Repeated patient cultures only Gram stain was reported from his I&D in the emergency department. Also added MRSA PCR screen ? 05/29/2024;Patient seen his submental abscess still remains indurated with significant drainage. Consult was placed to general surgery for consideration for possible repeat I&D Dr. Quiroz surgeon on-call notified 05/31: Patient was evaluated by surgeon Dr. Quiroz. He removed the packing at the bedside and probed the abscess and there were no loculations or fluctuation or more purulent material. Advised less packing in order to start the collapse and close the cavity. No further need of incision or drainage. Final wound culture so CoNS very rare, [place] odontolyticus. The patient had 5 days of IV Zosyn. Discharged on 5 more days of Augmentin. Follow-up in plastic surgery/wound clinic in 1 week 2. Paroxysmal atrial fibrillation ? Status post previous RFA and cardioversion. Patient currently on amiodarone and metoprolol for rate control and systemic anticoagulation with apixaban 3. Hypertension ? Blood pressure controlled, home medications continued with dose adjustment as needed 4. Dyslipidemia ?Patient is on statin therapy, continued at home dose 5. BPH with lower urinary obstructive symptoms - Patient treated with tamsulosin 6. Depression with anxiety ? Patient is on escitalopram did continue 7. Anemia ? Secondary to chronic disorder monitoring H&H and transfuse if patient becomes symptomatic or hemoglobin falls below 7 8. Gout ? Patient is on allopurinol 9. Chronic congestive heart failure with preserved ejection fraction ? Echo from 04/04/2021 demonstrated EF of 55% with PASP of 40 mmHg with diastolic dysfunction. Patient is on furosemide. Currently remains euvolemic 10. Obstructive sleep apnea ? Per history consistent use of PAP therapy encouraged 11. DVT prophylaxis ? Already on apixaban Discharge medication reconciliation done. Discharge follow-up instructions completed. Discharge process discussed with the patient and all questions were answered to patient's satisfaction. Follow with PCP in 1 to 2 weeks Total time spent, exact 35 minutes on discharge meds reconciliation, examination, coordination of care with nurses and ancillary staff, review of imaging and blood test and discussion with the patient on follow-up instructions. Medications at Discharge Home Medications pravastatin 40 mg tablet 40 mg PO QHS cholesterol 03/02/18 tamsulosin 0.4 mg capsule 0.4 mg PO DAILY prostate 03/05/18 allopurinol 300 mg tablet 300 mg PO DAILY gout 01/05/20 cholecalciferol (vitamin D3) 125 mcg (5,000 unit) capsule 125 mcg PO DAILY supplment 07/19/20 citalopram 10 mg tablet 10 mg PO DAILY depression 07/19/20 lactobacillus combination no.8 3 billion cell capsule 1 cell PO QHS probiotic 11/17/20 metronidazole 0.75 % topical gel 1 applic topical DAILY PRN SKIN 02/27/21 losartan 50 mg tablet 50 mg PO BID bp #180 tabs 11/01/21 furosemide 40 mg tablet See Rx Instructions .Route .COMPLEX water pill #90 tabs 03/17/23 apixaban 5 mg tablet (Eliquis) 5 mg PO BID blood thinner 07/14/23 amiodarone 200 mg tablet 100 mg (1/2 x 200 mg) PO DAILY blood pressure #45 tabs 07/24/23 acetaminophen 650 mg tablet,extended release (Tylenol Arthritis Pain) 650 mg PO Q12H PRN fever or pain 03/09/24 metoprolol tartrate 25 mg tablet 25 mg PO BID bp #180 tabs 12/23/24 potassium chloride 20 mEq tablet,extended release(part/cryst) (Klor-Con M) 20 meq PO DAILY replacement 05/27/24 amoxicillin 875 mg-potassium clavulanate 125 mg tablet 1 tab PO BID 5 days #10 tabs 05/31/24 Physical Exam Narrative Seen and examined. After I&D, wound healing is good. 1 side has much decreased with a small wick of gauze. No tenderness or redness. No fever. Physical exam General: Alert, Oriented x3, Cooperative. BMI 37.4 kg/m?. Obesity grade 2 HEENT: Atraumatic, PERRLA, EOMI, Normocephalic Oral: No Gingival or Mucosal Lesions/ Ulcerations Neck: Supple, No JVD, Negative Carotid Bruits Chest wall/Lungs: Air entry diminished in bilateral lung bases. No crepitation/rhonchi Cardiovascular: Regular rate, Regular Rhythm, Normal S1, Normal S2, No M/G/R Abdomen: Bowel Sounds Present, Soft, Non Tender, Non-Distended : No dysuria. No renal angle tenderness. No suprapubic tenderness. Extremities: No edema, Capillary Refill Less than 3 Seconds Skin: Wound was reviewed. No surrounding tenderness. Small incision with healing. No purulent drainage Musculoskeletal: No Tenderness to Palpation of Joints or Extremities Neurological: Cranial nerves II-XII grossly intact, DTR 2+/4. No acute focal neurological deficit. Psych/Mental Status: Flat affect Weight / BMI Weight Weight: 246 lb 0.574 oz Body Mass Index (BMI) 37.4 ABG / Lab / Microbiology Data 05/31/24 06:07 05/31/24 06:07 Laboratory: Laboratory Results - last 24 hr 05/31/24 06:07: WBC 7.6, RBC 3.39 L, Hgb 11.5 L, Hct 34.3 L, MCV 101.2 H, MCH 33.9 H, MCHC 33.5, RDW Std Deviation 49.2 H, RDW Coeff of Betsy 13.2, Plt Count 173, MPV 11.5, Immature Gran % (Auto) 1.100 H, Neut % (Auto) 62.5, Lymph % (Auto) 21.8, Delta % (Auto) 10.2 H, Eos % (Auto) 4.0, Baso % (Auto) 0.4, Absolute Neuts (auto) 4.8, Absolute Lymphs (auto) 1.65, Nucleated RBC % 0, Sodium 140, Potassium 3.7, Chloride 109 H, Carbon Dioxide 27.0, Anion Gap 4 L, BUN 22 H, Creatinine 0.83, Estim Creat Clear Calc 87.46, Est GFR (MDRD) Af Amer 115, Est GFR (MDRD) Non-Af 95, BUN/Creatinine Ratio 26.6 H, Glucose 107 H, Calcium 9.1 Microbiology: Microbiology 05/26/24 16:50 Wound Abcess - Neck Gram Stain - Final 05/26/24 16:50 Wound Abcess - Neck Wound Culture - Final Coag Negative Staph [place] odontolyticus 05/28/24 12:35 Nasal Secretion MRSA (PCR) - Final D/C Instructions DC O2, CPAP, BIPAP Needs Home O2 Discharge instructions: No Meaningful Use Info Meaningful Use Meaningful Use Diagnoses (Choose all that apply): None applicable Ischemic Stroke Statin Dosing Therapy Reference: STATIN DOSE THERAPY REFERENCE: * Patients > 75 years receive moderate or high dose statin therapy. * Patients 75 years or YOUNGER should receive HIGH intensity statin dose unless contraindicated. You will be required to document reason for non-treatment if statin daily dose does not meet guidelines. HIGH DOSE STATIN THERAPY DAILY Atorvastatin > than or = to 40 mg Rosuvastatin > than or = to 20 mg Amlodipine + Atorvastatin > than or = to 2.5/40 mg Ezetimibe + Simvastatin 10/80 mg Simvastatin 80mg Discharge Plan Admission Admit Date/Time: 05/26/24 16:30 Primary Reason for Your Visit: Outside surgical site infection/abscess Attending Provider: Keith Kuhn Primary Care Provider: Vinod Kirby Chi Consulting Providers: Fabiola Lowery; Ángel Quiroz; Jluis Carter Instructions Additional Instructions / Restrictions: Advised [id number] probiotic, lactobacillus 1 tablet twice daily for 1 week. Follow-up in the wound center in 3 days. Discharge Orders/Prescriptions Prescriptions: New amoxicillin-pot clavulanate 875-125 mg tablet 1 tab PO BID 5 Days Qty: 10 0RF Continued pravastatin 40 mg tablet 40 mg PO QHS citalopram 10 mg tablet 10 mg PO DAILY cholecalciferol (vitamin D3) 125 mcg (5,000 unit) capsule 125 mcg PO DAILY lactobacillus combination no.8 3 billion cell capsule 1 cell PO QHS acetaminophen [Tylenol Arthritis Pain] 650 mg tablet extended release 650 mg PO Q12H PRN (Reason: fever or pain) metronidazole 0.75 % gel 1 applic topical DAILY PRN (Reason: SKIN) tamsulosin 0.4 MG capsule 0.4 mg PO DAILY allopurinol 300 MG tablet 300 mg PO DAILY potassium chloride [Klor-Con M20] 20 mEq tablet,ER particles/crystals 20 meq PO DAILY losartan 50 mg tablet 50 mg PO BID Qty: 180 3RF furosemide 40 mg tablet See Rx Instructions .ROUTE .COMPLEX Qty: 90 3RF Dose Instruction: TAKE 1 TABLET BY MOUTH EVERY DAY Rx Instructions: TAKE 1 TABLET BY MOUTH EVERY DAY amiodarone 200 mg tablet 100 mg PO DAILY Qty: 45 3RF metoprolol tartrate 25 mg tablet 25 mg PO BID Qty: 180 3RF Held Eliquis 5 mg tablet 5 mg PO BID Hold Instructions: Start from 06/01/2024 Patient Comments: TAKE 1 TABLET BY MOUTH TWICE A DAY Discontinued cephalexin 500 mg capsule 500 mg PO Q6 Qty: 40 0RF Referrals / Follow Up: Forest Kuhn MD [Med Staff - Active Staff] - Within 1 Week (In the wound center) Vinod Kirby Chi, MD [Primary Care Provider] - Within 2 Weeks Disposition Disposition (needs filled in before D/C Order can be placed): Home, Self Care Charges/Coding Visit Charges Inpatient E&M: 26139 Disch Hosp >30min
--- NOTE | 2024-05-31 13:54 | PHA.DC_ITS ---
Pharmacy [facility] has performed discharge medication reconciliation and counseling for this patient. 1. AUGMENTIN 875 PO BID X 5 DAYS 2. STOP KEFLEX 3. RESUME ELIQUIS 06/01 The patient's discharge medication list was reviewed for discrepancies and discrepancies were resolved. The patient was counseled on the following discharge medications and changes in medications for homegoing were reviewed. The Reason for Use, instructions for use, and potential side effects were reviewed for all new medications. The patient's questions regarding all of their medications were answered. The patient was able to verbally demonstrate an understanding of their discharge medications. Medications at Discharge Home Medications pravastatin 40 mg tablet 40 mg PO QHS cholesterol 03/02/18 tamsulosin 0.4 mg capsule 0.4 mg PO DAILY prostate 03/05/18 allopurinol 300 mg tablet 300 mg PO DAILY gout 01/05/20 cholecalciferol (vitamin D3) 125 mcg (5,000 unit) capsule 125 mcg PO DAILY supplment 07/19/20 citalopram 10 mg tablet 10 mg PO DAILY depression 07/19/20 lactobacillus combination no.8 3 billion cell capsule 1 cell PO QHS probiotic 11/17/20 metronidazole 0.75 % topical gel 1 applic topical DAILY PRN SKIN 02/27/21 losartan 50 mg tablet 50 mg PO BID bp #180 tabs 11/01/21 furosemide 40 mg tablet See Rx Instructions .Route .COMPLEX water pill #90 tabs 03/17/23 apixaban 5 mg tablet (Eliquis) 5 mg PO BID blood thinner 07/14/23 amiodarone 200 mg tablet 100 mg (1/2 x 200 mg) PO DAILY blood pressure #45 tabs 07/24/23 acetaminophen 650 mg tablet,extended release (Tylenol Arthritis Pain) 650 mg PO Q12H PRN fever or pain 03/09/24 metoprolol tartrate 25 mg tablet 25 mg PO BID bp #180 tabs 05/10/24 potassium chloride 20 mEq tablet,extended release(part/cryst) (Klor-Con M) 20 meq PO DAILY replacement 05/27/24 amoxicillin 875 mg-potassium clavulanate 125 mg tablet 1 tab PO BID 5 days #10 tabs 05/31/24
--- NOTE | 2024-05-31 13:59 | CASEMGMT ---
Patient has order for discharge. RN CM in to discuss needs at discharge. Patient is independent in room. Patient states will help with dressing changes. Patient denies needs or help at discharge. Patient had no further questions or cocncerns.
[2024-05-31 14:05] VITALS: BP 136/56; PULSE 56; RESP 16; TEMP 36.5; O2SAT 95
== END 2024-05-31 14:44 | disposition home or self-care (01) | DRG 603 ==
LOC: ED 15:52 → PCU 17:02
PROVIDERS: Internal Medicine; Admitting Provider Family Medicine; Emergency Provider Emergency Medicine; PCP Family Medicine Geriatric Medicine; Visit Provider Internal Medicine
DX: L02.11 Cutaneous abscess of neck (principal); I42.8 Other cardiomyopathies; N13.8 Other obstructive and reflux uropathy; I50.32 Chronic diastolic (congestive) heart failure; D64.9 Anemia, unspecified; E66.9 Obesity, unspecified; S10.83XA Contusion of other specified part of neck, initial encounter; I11.0 Hypertensive heart disease with heart failure; I48.0 Paroxysmal atrial fibrillation; E78.5 Hyperlipidemia, unspecified; F41.8 Other specified anxiety disorders; M10.9 Gout, unspecified; L03.221 Cellulitis of neck; Z87.891 Personal history of nicotine dependence; Z79.01 Long term (current) use of anticoagulants; Z68.37 Body mass index [BMI] 37.0-37.9, adult; R22.1 Localized swelling, mass and lump, neck; Z79.899 Other long term (current) drug therapy; Z90.49 Acquired absence of other specified parts of digestive tract; N40.1 Benign prostatic hyperplasia with lower urinary tract symptoms
CPT/HCPCS: 36415; 70491; 80048; 80053; 80202; 83735; 84100; 85025; 85027; 87070; 87077; 87205; 87640; 87641; 99282; 99285; Q9967; A4216; J0295

== ENCOUNTER → 2024-09-13 | Outpatient (CLI) | payer MEDICARE, BC, SELFPAY ==
[2024-09-13 14:58] LABS: Absolute Lymphocyte Count 1.61 X10^3/uL (0.83-4.51); Absolute Neutrophil Count 5.2 X10^3/uL (2.0-7.7); Basophil# 0.02 X10^3/uL; Basophil% 0.2 % (0-1); Eosinophil# 0.53 X10^3/uL; Eosinophils% 6.5 % (0-5); Hematocrit 39.3 % (40-54); Lymphocyte # 1.61 X10^3/ul (0.83-4.51); Lymphocyte % 19.6 % (19-41); Mean Corp Hgb Conc 33.1 g/dL (32-36); Mean Corpuscular Hgb 33.3 pg (27.0-32.0); Mean Corpuscular Volume 100.8 fL (80-94); Monocyte# 0.74 X10^3/uL; NRBC Flagged by Analyzer 0 % (0-5); Neutrophil # 5.24 X10^3/uL (2.7-7.7); Neutrophil % 63.8 % (47-70); Platelet Count 173 K/mm3 (150-450); RBC Distribution Width CV 13.7 % (11.6-14.6); RBC Distribution Width SD 50.8 fl (35.1-43.9); White Blood Count 8.2 K/mm3 (4.4-11.0)
[2024-09-13 15:56] LABS: ALB/GLOB Ratio 1.3 RATIO (0.9-2.4); AST(SGOT) 20 U/L (<=37); Alanine Aminotransfer ALT/SGPT 19 U/L (<=46); Albumin, Serum 4.1 g/dL (3.4-4.8); Alkaline Phosphatase 83 U/L (40-129); Anion Gap 13 (5-15); BUN 24 mg/dL (4-19); BUN/Creat Ratio 31.3 RATIO (10-20); Calcium,Total 9.4 mg/dL (7.6-11.0); Carbon Dioxide 24.4 mmol/L (21.0-32.0); Chloride 103 mmol/L (98-108); Creatinine, Serum 0.76 mg/dL (0.70-1.20); EST Glomerular Filtration Rate 91 (>60); Globulin 3.2 g/dL (2.2-4.2); Glucose 115 mg/dL (70-99); Potassium 3.9 mmol/L (3.3-5.1); Protein, Total 7.3 g/dL (5.9-8.4); Sodium Level 140 mmol/L (133-145); Total Bilirubin 0.38 mg/dL (0.00-1.30); Vitamin D,25 Hydroxy 52.8 ng/mL (30-100)
== END | disposition home or self-care (01) ==
LOC: LAB 13:42
PROVIDERS: PCP Family Medicine Geriatric Medicine; Referring Provider Family Medicine Geriatric Medicine; Visit Provider Family Medicine Geriatric Medicine
DX: I10 Essential (primary) hypertension (principal); E55.9 Vitamin D deficiency, unspecified
CPT/HCPCS: 36415; 80053; 82306; 84443; 85025

== ENCOUNTER → 2024-09-30 | Outpatient (CLI) | payer MEDICARE, BC, SELFPAY | END | disposition home or self-care (01) | LOC: LAB 17:49 | PROVIDERS: PCP Family Medicine Geriatric Medicine; Visit Provider Family Medicine Geriatric Medicine | DX: R05.9 Cough, unspecified (principal) | CPT/HCPCS: 87631 ==

== ENCOUNTER 2024-12-08 14:45 | Outpatient (CLI) | payer MEDICARE, BC, SELFPAY ==
--- OUTSIDE RECORDS SUMMARY | 2024-12-08 20:14 | XMS RPT_ITS | CCD ---
Author Organization [facility] Care Team Providers Care Die Equipment Operator Name Role Phone RANDY WALKER Primary Care Unavailable EDMUND PARRY Attending Unavailable EDMUND PARRY Admitting Unavailable Dr. Avni Walker Chi Primary Care Provider Kofi, Dr. Avni Case Referring Provider Dr. Sai Murphy Attending Provider Kofi, Dr. Avni Case Primary Care Provider [phone] Kofi, Dr. Avni Case Referring Provider Roof LAN ENGINEER, LAN ENGINEER-C Ottoniel Valenzuela Attending Provider Perez LAN ENGINEER, LAN ENGINEER-C Linda Attending Provider Kofi, Dr. Avni Case Primary Care Provider Kofi, Dr. Avni Case Referring Provider Roof LAN ENGINEER, LAN ENGINEER-C Ottoniel Valenzuela Attending Provider Kofi, Dr. Avni Case Primary Care Provider Kofi, Dr. Avni Case Referring Provider Roof LAN ENGINEER, LAN ENGINEER-C Ottoniel Valenzuela Attending Provider Kofi, Dr. Avni Case Primary Care Provider Kofi, Dr. Avni Case Referring Provider Roof LAN ENGINEER, LAN ENGINEER-C Ottoniel Valenzuela Attending Provider KofiDr. Avni wiley MD, Chi Primary Care Provider Kofi JULIEN, Dr. Avni Case Attending Provider Kofi JULIEN, Dr. Avni Case Referring Provider Jules Shultz Attending Provider Kofi, Avni Chi Referring Unavailable Kofi, Avni Chi Primary Care Unavailable Kofi, Avni Chi Attending Unavailable White, Fabiola L Admitting Unavailable White, Fabiola L Consulting Unavailable Kofi, Avni Chi Primary Care Unavailable Bam, Keith Attending Unavailable Ángel Quiroz Consulting Unavailable Jluis Carter Consulting Unavailable White, Fabiola L Admitting Unavailable White, Fabiola L Consulting Unavailable Kofi, Avni Chi Primary Care Unavailable Bam, Keith Attending Unavailable Ángel Quiroz Consulting Unavailable AroldotoeJluis Consulting Unavailable Bam, Keith Consulting Unavailable Kofi, Avni Chi Referring Unavailable Kofi, Avni Chi Primary Care Unavailable Kofi, Avni Chi Attending Unavailable Kofi, Avni Chi Referring Unavailable Hanshaw, Sharri Consulting Unavailable Kofi, Avni Chi Primary Care Unavailable Kofi, Avni Chi Attending Unavailable Kofi, Avni Chi Referring Unavailable Kofi, Avni Chi Primary Care Unavailable Kofi, Avni Chi Attending Unavailable Kofi, Avni Chi Primary Care Unavailable Kofi, Avni Chi Attending Unavailable Kofi, Avni Chi Referring Unavailable Hanshaw, Sharri Consulting Unavailable Kofi, Avni Chi Primary Care Unavailable Linda Perez NP Attending Unavailable Kofi, Avni Chi Consulting Unavailable Jeffrey, Sai Referring Unavailable Jeffrey, Lucernemines Attending Unavailable Kofi, Avni Chi Primary Care Unavailable Kofi, Avni Chi Primary Care Unavailable Torrey Leal Attending Unavailable Jules Perez Attending Unavailable Kofi, Avni Chi Primary Care Unavailable Kofi, Avni Chi Referring Unavailable Kofi, Avni Chi Referring Unavailable Jeffrey, Lucernemines Attending Unavailable Kofi, Avni Chi Primary Care Unavailable Jluis Carter Attending Unavailable White, Fabiola L Attending Unavailable Bam, Keith Referring Unavailable Ángel Quiroz Attending Unavailable Kofi, Avni Chi Referring Unavailable Kofi, Avni Chi Primary Care Unavailable Kofi, Avni Chi Attending Unavailable Malta, Cecilia Referring Unavailable Malta, Cecilia Attending Unavailable Kofi, Avni Chi Primary Care Unavailable Allergies Allergy Classification Reported Allergen(s) Allergy Type Date of Onset Reaction(s) Facility (12 sources) Sulfonamides (Antibiotic); 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: [Sulfa (Sulfonamide Antibiotics)] Allergy to substance 06-26-[address] [facility] Medications Current Medications Medication Drug Class(es) Dates Sig (Normalized) Sig (Original) 8 hr acetaminophen 650 mg extended release oral tablet (13 sources) Start: 11-17-2020 End: 03-09-2024 take 1 tablet by mouth every twelve hours as needed for pain Acetaminophen (Tylenol Arthritis Pain) 650 mg tablet extended release Active 650 mg PO Q12H as needed for fever or pain March 09, 2024 1:03pm allopurinol 300 mg oral tablet (11 sources) Xanthine Oxidase Inhibitor Start: 01-05-2020 take 1 tablet by mouth once daily Allopurinol 300 MG tablet Active 300 mg PO DAILY January 05, 2020 12:00am apixaban 5 mg oral tablet (20 sources) Factor Xa Inhibitor Start: 07-14-2023 take 1 tablet by mouth twice daily Apixaban (Eliquis) 5 mg tablet Active 5 mg PO TWICE A DAY July 14, 2023 1:00am Start: 01-09-2020 End: 08-28-2022 take 1 tablet by mouth twice daily Apixaban 5 mg tablet Discontinued 5 mg PO TWICE A DAY 60 January 22, 2022 12:00pm August 28, 2022 9:38am cholecalciferol 0.125 mg oral capsule (11 sources) Vitamin D Start: 07-19-2020 take 1 capsule by mouth once daily Cholecalciferol (Vitamin D3) 125 mcg (5,000 unit) capsule Active 125 ug PO DAILY July 19, 2020 1:00am citalopram 10 mg oral tablet (11 sources) Serotonin Reuptake Inhibitor Start: 07-19-2020 take 1 tablet by mouth once daily Citalopram 10 mg tablet Active 10 mg PO DAILY July 19, 2020 1:00am Lactobacillus Combination No.8 (9 sources) Start: 11-17-2020 Lactobacillus Combination No.8 Active CELL PO November 17, 2020 10:40am Start: 11-17-2020 Lactobacillus Combination No.8 Active 1 CELL PO AT BEDTIME November 17, 2020 12:00am Lactobacillus Combination No.8 3 billion cell capsule (2 sources) Start: 11-17-2020 take 3 capsules by mouth at bedtime Lactobacillus Combination No.8 3 billion cell capsule Active 1 NMA PO AT BEDTIME November 17, 2020 12:00am metoprolol tartrate 25 mg oral tablet (20 sources) beta-Adrenergi c Odilia Start: 10-12-2024 Metoprolol Tartrate 25 mg tablet Active 12.5 mg PO TWICE A DAY 90 October 12, 2024 1:47pm Start: 05-07-2021 End: 10-12-2024 take 1 tablet by mouth twice daily Metoprolol Tartrate 25 mg tablet Discontinued 25 mg PO TWICE A DAY 180 May 10, 2024 10:55am October 12, 2024 1:48pm Start: 02-27-2021 End: 05-07-2021 Metoprolol Tartrate 50 mg ta blet Discontinued 25 mg PO TWICE A DAY 180 February 27, 2021 11:37am May 07, 2021 11:13am Start: 02-27-2021 End: 05-07-2021 take 25 mg by mouth twice daily Metoprolol Tartrate Di scontinued 25 MG PO TWICE A DAY 180 February 27, 2021 11:37am May 07, 2021 11:13am Start: 04-21-2020 End: 02-27-2021 take 1 tablet by mouth twice daily Metoprolol Tartrate 50 mg tablet Discontinued 50 mg PO TWICE A DAY 180 April 25, 2020 4:18pm February 27, 2021 11:37am Start: 02-11-2020 End: 04-21-2020 Metoprolol Tartrate 100 mg t ablet Discontinued 50 mg PO TWICE A DAY 60 February 11, 2020 11:42am April 21, 2020 10:40am Start: 02-11-2020 End: 04-21-2020 take 50 mg by mouth twice daily Metoprolol Tartrate Di scontinued 50 MG PO TWICE A DAY 60 February 11, 2020 11:42am April 21, 2020 10:40am Start: 01-09-2020 End: 02-11-2020 take 1 tablet by mouth twice daily Metoprolol Tartrate 100 mg tablet Discontinued 100 mg PO TWICE A DAY 60 January 28, 2020 12:02pm February 11, 2020 11:42am metroNIDAZOLE 0.0075 mg/mg topical gel (20 sources) Nitroimidazole Antimicrobial Start: 02-27-2021 Metronidazole 0.75 % gel Active 1 NMA TOPICAL DAILY as needed for SKIN February 27, 2021 12:00am Start: 06-02-2020 End: 06-13-2020 Metronidazole 1 APPLIC gel D iscontinued 1 NMA TOPICAL TWICE A DAY June 02, 2020 1:00am June 13, 2020 10:44am Start: 06-02-2020 End: 06-13-2020 Metronidazole Discontinued 1 APPLIC TOPICAL TWICE A DAY June 02, 2020 1:00am June 13, 2020 10:44am pravastatin sodium 40 mg oral tablet (11 sources) HMG-CoA Reductase Inhibitor Start: 03-02-2018 take 1 tablet by mouth at bedtime Pravastatin 40 mg tablet Active 40 mg PO AT BEDTIME March 02, 2018 12:00am tamsulosin hydrochloride 0.4 mg oral capsule (11 sources) alpha-Adrenergic Odilia Start: 03-05-2018 take 1 capsule by mouth once daily Tamsulosin 0.4 MG capsule Active 0.4 mg PO DAILY March 05, 2018 12:00am Completed/Discontinued Medications Medication Drug Class(es) Dates Sig (Normalized) Sig (Original) amiodarone hydrochloride 200 mg oral tablet (20 sources) Antiarrhythmic Start: 06-27-2022 End: 06-08-2024 Amiodarone 200 mg tablet Discontinued 100 mg PO DAILY July 24, 2023 9:09am June 08, 2024 1:30pm Start: 06-27-2022 End: 07-24-2023 take 100 mg by mouth once daily Amiodarone Discontinue d 100 MG PO DAILY June 27, 2022 4:02pm July 24, 2023 9:09am Start: 12-17-2021 End: 06-27-2022 take 1 tablet by mouth once daily Amiodarone 200 mg tablet Discontinued 200 mg PO DAILY December 17, 2021 11:09am June 27, 2022 4:02pm Start: 11-22-2020 End: 12-17-2021 take 1 tablet by mouth twice daily, then take 1 tablet by mouth once daily Amiodarone 200 mg tablet Discontinued 200 mg PO DAILY December 07, 2020 2:10pm December 17, 2021 11:09am 0ne tablet by mouth twice daily then one tablet by mouth daily. Start: 06-02-2020 End: 06-03-2020 take 1 tablet by mouth once daily Amiodarone 200 MG tablet Discontinued 200 mg PO DAILY June 02, 2020 1:00am June 03, 2020 1:24pm Start: 02-15-2020 End: 04-21-2020 take 1 tablet by mouth once daily Amiodarone 200 mg tablet Discontinued 200 mg PO DAILY March 22, 2020 1:00am April 21, 2020 10:51am amoxicillin 875 mg / clavulanate 125 mg oral tablet (2 sources) Penicillin-class Antibacterial Start: 05-31-2024 End: 10-12-2024 Amoxicillin-Pot Clavulanate 875-125 mg tablet Discontinued 1 {tbl} PO TWICE A DAY 10 May 31, 2024 1:00am October 12, 2024 1:33pm bee pollen 550 mg oral capsule (11 sources) Start: 01-05-2020 End: 01-09-2020 take 1 capsule by mouth once daily Bee Pollen 550 MG capsule Discontinued 550 mg PO DAILY January 05, 2020 12:00am January 09, 2020 12:04pm cephalexin 500 mg oral capsule (2 sources) Cephalosporin Antibacterial Start: 05-23-2024 End: 05-31-2024 take 1 capsule by mouth every six hours Cephalexin 500 mg capsule Discontinued 500 mg PO EVERY 6 HOURS 40 May 23, 2024 1:00am May 31, 2024 1:55pm Cholecalciferol (Vitamin D3) (Vitamin D3) 5,000 UNIT capsule (11 sources) Start: 01-05-2020 End: 07-19-2020 take 1 capsule by mouth once daily Cholecalciferol (Vitamin D3) (Vitamin D3) 5,000 UNIT capsule Discontinued 5000 UNIT PO DAILY January 05, 2020 7:35pm July 19, 2020 10:57am Start: 01-05-2020 End: 07-19-2020 take 1 capsule by mouth once daily Cholecalciferol (Vitamin D3) (Vitamin D3) 5,000 UNIT capsule Discontinued 5000 U PO DAILY January 05, 2020 12:00am July 19, 2020 10:57am Start: 01-05-2020 End: 07-19-2020 take 1 capsule by mouth once daily Cholecalciferol (Vitamin D3) (Vitamin D3) 5,000 UNIT capsule Discontinued 5000 UNIT PO DAILY January 05, 2020 12:00am July 19, 2020 10:57am ciprofloxacin 500 mg oral tablet (6 sources) Quinolone Antimicrobial Start: 03-19-2023 End: 07-14-2023 take 1 tablet by mouth twice daily Ciprofloxacin Hcl (Cipro) 500 mg tablet Discontinued 500 mg PO TWICE A DAY March 19, 2023 12:00am July 14, 2023 3:15pm digoxin 0.125 mg oral tablet (20 sources) Cardiac Glycoside Start: 01-09-2020 End: 02-11-2020 take 1 tablet by mouth once daily Digoxin 125 mcg (0.125 mg) tablet Discontinued 125 ug PO DAILY February 03, 2020 9:15am February 11, 2020 11:42am finasteride 5 mg oral tablet (6 sources) 5-alpha Reductase Inhibitor Start: 03-11-2023 End: 07-14-2023 take 1 tablet by mouth once daily Finasteride 5 mg tablet Discontinued 5 mg PO DAILY March 11, 2023 12:00am July 14, 2023 3:16pm furosemide 40 mg oral tablet (20 sources) Loop Diuretic Start: 01-09-2020 End: 03-17-2023 take 1 tablet by mouth once daily Furosemide 40 mg tablet Discontinued 40 mg PO DAILY February 04, 2022 4:49pm March 17, 2023 8:11am hydroCHLOROthiazide 12.5 mg oral tablet (20 sources) Thiazide Diuretic Start: 06-02-2020 End: 06-03-2020 take 1 tablet by mouth once daily Hydrochlorothiazide 12.5 MG tablet Discontinued 12.5 mg PO DAILY June 02, 2020 1:00am June 03, 2020 1:30pm Start: 01-05-2020 End: 01-09-2020 take 1 tablet by mouth once daily Hydrochlorothiazide 12.5 mg tablet Discontinued 12.5 mg PO DAILY January 05, 2020 12:00am January 09, 2020 12:04pm losartan potassium 50 mg oral tablet (20 sources) Angiotensin 2 Receptor Odilia Start: 10-03-2020 End: 11-17-2020 take 1 tablet by mouth at bedtime Losartan 50 mg tablet Discontinued 50 mg PO AT BEDTIME October 03, 2020 11:28am November 17, 2020 10:40am Start: 08-03-2020 End: 11-01-2021 take 1 tablet by mouth twice daily Losartan 50 mg tablet Discontinued 50 mg PO TWICE A DAY November 17, 2020 10:38am November 17, 2020 11:20am Start: 03-02-2018 End: 08-03-2020 take 1 tablet by mouth once daily Losartan 50 mg tablet Discontinued 50 mg PO DAILY March 02, 2018 12:00am August 03, 2020 5:04pm meloxicam 15 mg oral tablet (11 sources) Nonsteroidal Anti-inflammatory Drug Start: 03-02-2018 End: 01-09-2020 take 1 tablet by mouth once daily Meloxicam 15 mg tablet Discontinued 15 mg PO DAILY March 02, 2018 12:00am January 09, 2020 12:04pm microencapsulated potassium chloride 20 meq extended release oral tablet (2 sources) Start: 05-27-2024 End: 10-12-2024 Potassium Chloride (Klor-Con M20) 20 mEq tablet,ER particles/brent ls Discontinued 20 meq PO DAILY May 27, 2024 1:00am October 12, 2024 1:36pm rivaroxaban 20 mg oral tablet (20 sources) Factor Xa Inhibitor Start: 08-28-2022 End: 07-14-2023 take 1 tablet by mouth once daily at dinner Rivaroxaban (Xarelto) 20 mg tablet Discontinued 20 mg PO EVERY EVENING December 23, 2022 9:11am July 14, 2023 3:17pm On Hold: Resume on 04/02/23. must administer with evening meal Problems Active Problems Problem Classification Problem Date Documented Da te Episodic/Chronic Cardiac dysrhythmias (20 sources) Typical atrial flutter; 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: [Typical atrial flutter] Chronic Comment on above: RFA 08/03/2020 Cardiac dysrhythmias (7 sources) Bradycardia; 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: [Bradycardia, unspecified] 08-28-2022 Episodic Conduction disorders (20 sources) Left bundle branch block; 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: [Left bundle-branch block, unspecified] Chronic Congestive heart failure; nonhypertensive (11 sources) Chronic systolic heart failure; 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: [Chronic systolic (congestive) heart failure] 06-02-2020 Chronic Deficiency and other anemia (11 sources) Anemia; 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: [Anemia, unspecified] 02-26-2021 Episodic Disorders of lipid metabolism (20 sources) Hyperlipidemia; 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: [Hyperlipidemia, unspecified] Chronic Essential hypertension (20 sources) Benign essential hypertension; 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: [Essential (primary) hypertension] Onset: 09-15-2024 Chronic Malaise and fatigue (20 sources) Fatigue; 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: [Other fatigue] 06-26-2021 Episodic Nonspecific chest pain (11 sources) Chest pain; 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: [Chest pain, unspecified] 07-17-2020 Episodic Other aftercare (11 sources) Drug therapy finding; 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: [Other skilled nursing (current) drug therapy] 12-07-2020 Episodic Other aftercare (2 sources) Long-term current use of anticoagulant; 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: [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] 06-08-2024 Episodic Other circulatory disease (2 sources) H/O: atrial fibrillation; 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: [Personal history of other diseases of the circulatory system] 05-26-2024 Episodic Other circulatory disease (1 source) Personal history of other diseases of the circulatory system; 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: [Personal history of other diseases of the circulatory system] Onset: 10-12-2024 Episodic Other connective tissue disease (11 sources) Recurrent falls ; 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: [Repeated falls] 06-26-2021 Episodic Other injuries and conditions due to external causes (2 sources) Hematoma; 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: [Other injury of unspecified body region, initial encounter] 05-31-2024 Episodic Other lower respiratory disease (11 sources) Dyspnea on exertion; 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: [Dyspnea, unspecified] 06-26-2021 Episodic Other skin disorders (2 sources) Neck swelling; 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: [Localized swelling, mass and lump, neck] 05-20-2024 Episodic Hayley-; endo-; and myocarditis; cardiomyopathy (except that caused by tuberculosis or sexually transmitted disease) (20 sources) Cardiomyopathy; 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: [Other cardiomyopathies] Chronic Residual codes; unclassified (2 sources) Past history of procedure; 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: [Other specified postprocedural states] 05-26-2024 Episodic Unclassified (1 source) Cough, unspecified; 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: [Cough, unspecified] Onset: 10-04-2024 Viral infection (13 sources) Disease caused by 2019-nCoV; 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: [COVID-19] Episodic Past or Other Problems Problem Classification Problem Date Documented Date Episodic/Chronic Lymphadenitis (1 source) Localized enlarged lymph nodes; 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: [Localized enlarged lymph nodes] Onset: 05-14-2024 Episodic Other aftercare (4 sources) Other skilled nursing (current) drug therapy; 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: [Long-term (current) use of other medications] Onset: 03-31-2024 07-14-2023 Episodic Other screening for suspected conditions (not mental disorders or infectious disease) (1 source) Encounter for screening for malignant neoplasm of prostate; 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: [Encounter for screening for malignant neoplasm of prostate] Onset: 12-05-2023 Episodic Other skin disorders (2 sources) Localized swelling, mass and lump, neck; 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: [Localized swelling, mass and lump, neck] Onset: 06-02-2024 Episodic Residual codes; unclassified (11 sources) History of radiofrequency ablation operation for arrhythmia; 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: [Other specified postprocedural states] Onset: 08-03-2020 06-25-2021 Episodic Skin and subcutaneous tissue infections (6 sources) Abscess; 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: [Cutaneous abscess, unspecified] Onset: 06-11-2024 06-08-2024 Episodic Results Test Name Value Interpretation Reference Range Facility Cardiology Visit Reporton Cardiology Visit Report [facility] [address] [place] [address] OFFICE VISIT Date of Service: 10/12/24 MR#: [id number] Acct: [id number] Name: ANTOINE PEREZ Rep #: [id number] : 1945 Provider: NOEMI Hussein Age/Sex: 78/M Location: [facility] Status: Signed HPI HPI History of Present Illness Details: Antoine Perez is an 78-year-old male who presents to office today for follow-up for monitoring his cardiovascular health. Patient was admitted to the [facility] 01/05/2020 and was found to be in 2???1 atrial flutter. Patient was initiated on anticoagulation and rate limiting medications. He was noted to have a reduced ejection fraction at that time. He underwent cardioversion 02/01/2020 and unfortunately did not maintain sinus rhythm. Patient was initiated on amiodarone. He underwent a second cardioversion in March but did not maintain sinus rhythm. Patient was admitted to the hospital in April 2020 where he was ruled out for an ME, underwent stress test which did not demonstrate any evidence of ischemia. Sleep study demonstrated mild obstructive sleep apnea. Patient was referred to [facility] for an atrial flutter ablation which he underwent July 2020. Upon presentation today, patient reports doing well. He is hoping to lose weight and has been pursuing GLP-1 therapy with goals of lowering his weight. This has potentially caused some GI disturbance with constipation. From a cardiac standpoint, patient reports doing well with minimal concerns. He reports concerns of fatigue/decreased energy. Further ROS below. 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 Required: No Is patient in pain?: No Allergies Sulfa (Sulfonamide Antibiotics) Allergy (Intermediate, Verified 10/12/24 13:12) Hives Medications ???Medication ???Instructions ???Recorded ???Confirmed ???Type pravastatin 40 mg tablet 40 mg PO QHS cholesterol 03/02/18 10/12/24 History tamsulosin 0.4 mg capsule 0.4 mg PO DAILY prostate 03/05/18 10/12/24 History allopurinol 300 mg tablet 300 mg PO DAILY gout 01/05/2009/17 History cholecalciferol (vitamin D3) 125 125 mcg PO DAILY supplment 1 10/12/24 History mcg (5,000 unit) capsule citalopram 10 mg tablet 10 mg PO DAILY depression 07/19/20 10/12/24 History lactobacillus combination no.8 3 1 cell PO QHS probiotic 11/17/20 0 10/12/24 History billion cell capsule metronidazole 0.75 % topical gel 1 applic topical DAILY PRN SKIN 10/12/24 History losartan 50 mg tablet 50 mg PO BID bp #180 tabs 11/01/21 10/12/24 Rx furosemide 40 mg tablet See Rx Instructions .Route 3 10/12/24 Rx .COMPLEX water pill #90 tabs apixaban 5 mg tablet (Eliquis) 5 mg PO BID blood thinner 07/14/23 10/12/24 History acetaminophen 650 mg 650 mg PO Q12H PRN fever or pain 1 10/12/24 History tablet,extended release (Tylenol Arthritis Pain) amiodarone 200 mg tablet 100 mg (1/2 x 200 mg) PO DAILY 10/12/24 Rx blood pressure #45 tabs metoprolol tartrate 25 mg tablet 12.5 mg (1/2 x 25 mg) PO BID bp 10/12/24 Rx #90 tabs Ejection fraction %: 55 Have you fallen in the past year?: No PFSH Medical History Chronic anticoagulation Wears hearing aid Depression Alcohol use Bladder disease History of diverticulitis Former smoker Varicose vein of leg History of stress test History of echocardiogram History of Holter monitoring Cardiology follow-up encounter History of atrial fibrillation Bradycardia Typical atrial flutter Left bundle branch block (LBBB) TIMOTHY (obstructive sleep apnea) BPH (benign prostatic hyperplasia) Back pain Thoracic neuritis Segmental and somatic dysfunction of pelvic region Segmental and somatic dysfunction of lumbar region Segmental and somatic dysfunction of thoracic region Fatigue Chronic systolic (congestive) heart failure Obesity Non-ischemic cardiomyopathy Hyperlipidemia Segmental and somatic dysfunction of thoracic region Acute cervical sprain Segmental and somatic dysfunction of cervical region Osteoarthritis Arthritis Benign essential hypertension Surgical History History of urethrotomy ( 03/2023) Hx of arthroscopy of knee Hx of arthroplasty Hx of colonoscopy History of radiofrequency ablation procedure for cardiac arrhythmia (08/03/20) History of cardioversion (03/27/20) History of cataract surgery (more content not included)... Normal [facility] Influenza virus A and B and SARS-CoV-2 (COVID-19) and Respiratory syncytial virus RNAOrdered By: Avni Walker on 09-30-2024 SARS-CoV-2 (COVID-19) RNA PADDY+probe Ql (Unsp spec) [facility] M100.678on 09-30-2024 M100.678 Pending SARS-CoV-2 (COVID 19) Negative INFLUENZA A Negative INFLUENZA B Negative RSV PCR Negative Normal [facility] Comment on above: Performed By: #### L 500.2500, L500.3400, L500.4100, L503.6620, L501.9520 #### [facility] [address] [place], [address] Absolute lymphocyte countOrd ered By: Avni Walker on 09-13-2024 Lymphocytes Auto (Unsp spec) [#/Vol] 1.61 10*3/uL 0.83-4.51 [facility] Absolute neutrophil countOrd ered By: Avni Walker on 09-13-2024 Neutrophils (Bld) [#/Vol] 5.2 10*3/uL 2.0-7.7 [facility] Anion gap in Serum or Plasma Ordered By: Avni Walker on 09-13-2024 Anion gap [Moles/Vol] 13 mmol/L 5- [facility] Automated lymphocyte count a s percentage of total leukocytesOrdered By: Avni Walker on 09-13-2024 Lymphocytes/100 WBC Auto (Unsp spec) 19.6 % - [facility] BUN/creatinine ratioOrdered By: Avni Walker on 09-13-2024 Urea nitrogen/Creatinine [Mass ratio] 31.3 mg/mg High 10- [facility] Basophil percentageOrdered B y: Avni Walker on 09-13-2024 Basophils/100 WBC (Bld) 0.2 % 0-1 [facility] Bilirubin, totalOrdered By: Avni Walker on 09-13-2024 Bilirubin [Mass/Vol] 0.38 mg/dL 0.00-1.30 [facility] CBC W/Diff, Automatedon 08-18 Absolute Lymph 1.61 X10 3/uL Normal 0.83-4.51 [facility] Comment on above: Performed By: #### L 500.2500, L500.3400, L500.4100, L503.6620, L501.9520 #### [facility] [address] [place], [address] Absolute Neut 5.2 X10 3/uL Normal 2.0-7.7 [facility] Comment on above: Performed By: #### L 500.2500, L500.3400, L500.4100, L503.6620, [id number] #### [facility] [address] [place], [address] Basophils/100 WBC (Bld) 0.2 % Normal 0-1 [facility] Comment on above: Performed By: #### L 500.2500, L500.3400, L500.4100, L503.6620, [id number] #### [facility] [address], [address] Eosinophils/100 WBC (Bld) 6.5 % High 0-5 [facility] Comment on above: Performed By: #### L 500.2500, L500.3400, L500.4100, [id number], [id number] #### [facility] [address] [place], [address] Erythrocyte distribution width (RBC) [Ratio] 13.7 % Normal 11.6-14.6 [facility] Comment on above: Performed By: #### L 500.2500, L500.3400, L500.4100, L503.6620, [id number] #### [facility] [address] [place], [address] Hematocrit (Bld) [Volume fraction] 39.3 % Low 40-54 [facility] Comment on above: Performed By: #### L 500.2500, L500.3400, L500.4100, L503.6620, [id number] #### [facility] [address] [place], [address] Hemoglobin (Bld) [Mass/Vol] 13.0 g/dL Normal 13.0-16.5 [facility] Comment on above: Performed By: #### L 500.2500, L500.3400, L500.4100, L503.6620, [id number] #### [facility] [address] [place], [address] IG% 0.900 Normal 0.0-0.9 [facility] Comment on above: Result Comment: IG% - Immature Granulocytes (promyelocytes, myelocytes and metamyelocytes) > 1% indicates that a LEFT SHIFT is Present. Performed By: #### L 500.2500, L500.3400, L500.4100, L503.6620, [id number] #### [facility] [address] [place], [address] Lymphocytes/100 WBC (Bld) 19.6 % Normal 19-41 [facility] Comment on above: Performed By: #### L 500.2500, L500.3400, L500.4100, L503.6620, [id number] #### [facility] [address] [place], [address] MCH (RBC) [Entitic mass] 33.3 pg High 27.0-32.0 [facility] Comment on above: Performed By: #### L 500.2500, L500.3400, L500.4100, L503.6620, [id number] #### [facility] [address] [place], [address] MCHC (RBC) [Mass/Vol] 33.1 g/dL Normal 32-36 [facility] Comment on above: Performed By: #### L 500.2500, L500.3400, L500.4100, L503.6620, [id number] #### [facility] [address] [place], [address] MCV (RBC) [Entitic vol] 100.8 fL High 80-94 [facility] Comment on above: Performed By: #### L 500.2500, L500.3400, L500.4100, L503.6620, [id number] #### [facility] [address] [place], [address] Monocytes/100 WBC (Bld) 9.0 % Normal 0-10 [facility] Comment on above: Performed By: #### L 500.2500, L500.3400, L500.4100, L503.6620, [id number] #### [facility] [address] [place], [address] Neutrophils/100 WBC (Bld) 63.8 % Normal 47-70 [facility] Comment on above: Performed By: #### L 500.2500, L500.3400, L500.4100, L503.6620, [id number] #### [facility] [address] [place], [address] Nucleated RBC (Bld) [#/Vol] 0 10*3/uL Normal 0-5 [facility] Comment on above: Performed By: #### L 500.2500, L500.3400, L500.4100, L503.6620, [id number] #### [facility] [address] [place], [address] Platelet mean volume (Bld) [Entitic vol] 13.0 fL High 6.2-12.0 [facility] Comment on above: Performed By: #### L 500.2500, L500.3400, L500.4100, L503.6620, [id number] #### [facility] [address] [place], [address] Platelets (Bld) [#/Vol] 173 10*3/uL Normal 150-450 [facility] Comment on above: Performed By: #### L 500.2500, L500.3400, L500.4100, L503.6620, [id number] #### [facility] [address] [place], [address] RBC (Bld) [#/Vol] 3.90 10*6/uL Low 4.6-6.2 [facility] Comment on above: Performed By: #### L 500.2500, L500.3400, L500.4100, L503.6620, [id number] #### [facility] [address] [place], [address] RDW SD 50.8 fl High 35.1-43.9 [facility] Comment on above: Performed By: #### L 500.2500, L500.3400, L500.4100, L503.6620, [id number] #### [facility] [address], [address] WBC (Bld) [#/Vol] 8.2 10*3/uL Normal 4.4-11.0 [facility] Comment on above: Performed By: #### L 500.2500, L500.3400, L500.4100, L503.6620, [id number] #### [facility] [address] [place], [address] Carbon dioxide, total [Moles /volume] in [place] venous bloodOrdered By: Avni Walker on 09-13-2024 CO2 [Moles/Vol] 24.4 mmol/L 21.0-32.0 [facility] Chloride assayOrdered By: Curtis Walker on 09-13-2024 Chloride [Moles/Vol] 103 mmol/L 98-108 [facility] Comprehensive Metabolic Prof ilon 09-13-2024 Albumin [Mass/Vol] 4.1 g/dL Normal 3.4-4.8 [facility] Comment on above: Performed By: #### L 500.2500, L500.3400, L500.4100, L503.6620, [id number] #### [facility] [address] [place], [address] Albumin/Globulin [Mass ratio] 1.3 {ratio} Normal 0.9-2.4 [facility] Comment on above: Performed By: #### L 500.2500, L500.3400, L500.4100, L503.6620, [id number] #### [facility] [address] [place], [address] ALK PHOS 83 U/L Normal 40-129 [facility] Comment on above: Performed By: #### L 500.2500, L500.3400, L500.4100, L503.6620, [id number] #### [facility] [address] [place], [address] ALT [Catalytic activity/Vol] 19 U/L Normal <=46 [facility] Comment on above: Performed By: #### L 500.2500, L500.3400, L500.4100, L503.6620, [id number] #### [facility] [address] [place], [address] AST [Catalytic activity/Vol] 20 U/L Normal <=37 [facility] Comment on above: Performed By: #### L 500.2500, L500.3400, L500.4100, L503.6620, [id number] #### [facility] [address] [place], [address] Bilirubin [Mass/Vol] 0.38 mg/dL Normal 0.00-1.30 [facility] Comment on above: Performed By: #### L 500.2500, L500.3400, L500.4100, L503.6620, [id number] #### [facility] [address] [place], [address] BUN/CRE 31.3 RATIO High 10-20 [facility] Comment on above: Performed By: #### L 500.2500, L500.3400, L500.4100, L503.6620, [id number] #### [facility] [address] [place], [address] Calcium [Mass/Vol] 9.4 mg/dL Normal 7.6-11.0 [facility] Comment on above: Performed By: #### L 500.2500, L500.3400, L500.4100, L503.6620, [id number] #### [facility] [address] [place], [address] Chloride [Moles/Vol] 103 mmol/L Normal 98-108 [facility] Comment on above: Performed By: #### L 500.2500, L500.3400, L500.4100, L503.6620, [id number] #### [facility] [address] [place], [address] CO2 [Moles/Vol] 24.4 mmol/L Normal 21.0-32.0 [facility] Comment on above: Performed By: #### L 500.2500, L500.3400, L500.4100, L503.6620, [id number] #### [facility] [address] [place], [address] Creatinine [Mass/Vol] 0.76 mg/dL Normal 0.70-1.20 [facility] Comment on above: Performed By: #### L 500.2500, L500.3400, L500.4100, L503.6620, [id number] #### [facility] [address] [place], [address] GAP 13 Normal 5-15 [facility] Comment on above: Performed By: #### L 500.2500, L500.3400, L500.4100, L503.6620, [id number] #### [facility] [address] [place], [address] GFR/1.73 sq M.predicted among non-blacks MDRD (S/P/Bld) [Vol rate/Area] 91 mL/min/{1.73_m2} Normal >60 [facility] Comment on above: Result Comment: mL/m in/1.73m2 CKD-EPI Creatinine Equation (2020) Performed By: #### L 500.2500, L500.3400, L500.4100, L503.6620, [id number] #### [facility] [address] [place], [address] Globulin (S) [Mass/Vol] 3.2 g/dL Normal 2.2-4.2 [facility] Comment on above: Performed By: #### L 500.2500, L500.3400, L500.4100, L503.6620, [id number] #### [facility] [address] [place], [address] Glucose [Mass/Vol] 115 mg/dL High 70-99 [facility] Comment on above: Performed By: #### L 500.2500, L500.3400, L500.4100, L503.6620, [id number] #### [facility] [address] [place], [address] Potassium [Moles/Vol] 3.9 mmol/L Normal 3.3-5.1 [facility] Comment on above: Performed By: #### L 500.2500, L500.3400, L500.4100, L503.6620, [id number] #### [facility] [address] [place], [address] Sodium [Moles/Vol] 140 mmol/L Normal 133-145 [facility] Comment on above: Performed By: #### L 500.2500, L500.3400, L500.4100, L503.6620, [id number] #### [facility] [address] [place], [address] T PROT 7.3 g/dL Normal 5.9-8.4 [facility] Comment on above: Performed By: #### L 500.2500, L500.3400, L500.4100, L503.6620, [id number] #### [facility] [address] [place], [address] Urea nitrogen [Mass/Vol] 24 mg/dL High 4-19 [facility] Comment on above: Performed By: #### L 500.2500, L500.3400, L500.4100, L503.6620, L501.9520 #### [facility] [place], [address] Eosinophil percentageOrdered By: Avni Walker on 09-13-2024 Eosinophils/100 WBC (Bld) 6.5 % High 0-5 [facility] Erythrocyte distribution wid th [facility]Ordered By: [facility] Erythrocyte distribution width (RBC) [Ratio] 13.7 % 11.6-14.6 [facility] Erythrocyte distribution wid th standard deviationOrdered By: [facility] 09-13-20[facility] Erythrocyte distribution width (RBC) [Ratio] 50.8 fl High 35.1-43.9 [facility] Glomerular filtration rate ( GFR) estimation/1.73 sq m using serum, plasma, or whole bOrdered By: [facility] 09-[facility] GFR/1.73 sq M.predicted among non-blacks MDRD (S/P/Bld) [Vol rate/Area] 91 mL/min/{1.73_m2} >60 [facility] Comment on above: mL/min/1.73m2 CKD-EP I Creatinine Equation (2020) Hematocrit Auto (Bld) [Volum e fraction]Ordered By: Avni Kofi 09-13-2024 Hematocrit (Bld) [Volume fraction] 39.3 % Low 40-54 [facility] Hemoglobin measurementOrdere d By: Avni Kofi 09-13-2024 Hemoglobin (Bld) [Mass/Vol] 13.0 g/dL 13.0-16.5 [facility] Immature granulocytes/100 WB C Auto (Bld)Ordered By: Avni Walker 09-13-2024 Immature granulocytes/100 WBC (Bld) 0.900 % 0.0-0.9 [facility] Comment on above: IG% - Immature Granu locytes (promyelocytes, myelocytes and metamyelocytes) > 1% indicates that a LEFT SHIFT is Present. Laboratory - Chemistry and C hemistry - challengeOrdered By: Avni Kofi 09-13-2024 AST [Catalytic activity/Vol] 20 U/L <38 [facility] MCV (mean corpuscular volume ) determinationOrdered By: Avni Walker on 09-13-2024 MCV (RBC) [Entitic vol] 100.8 fL High 80-94 [facility] Mean corpuscular hemoglobin (MCH) determinationOrdered By: Avni Walker on 09-13-2024 MCH (RBC) [Entitic mass] 33.3 pg High 27.0-32.0 [facility] Mean corpuscular hemoglobin concentration (MCHC) determinationOrdered By: Avni Walker on 09-13-2024 MCHC (RBC) [Mass/Vol] 33.1 g/dL 32-36 [facility] Mean platelet volume determi nationOrdered By: Avni Walker on 09-13-2024 Platelet mean volume (Bld) [Entitic vol] 13.0 fL High 6.2-12.0 [facility] Monocyte percentageOrdered B y: Avni Walker on 09-13-2024 Monocytes/100 WBC (Bld) 9.0 % 0-10 [facility] Neutrophil percentageOrdered By: Avni Walker on 09-13-2024 Neutrophils/100 WBC (Bld) 63.8 % 47-70 [facility] Nucleated red blood cell per centageOrdered By: Avni Walker 09-13-2024 Nucleated RBC/100 WBC (Bld) [Ratio] 0 % 0-5 [facility] Platelet countOrdered By: Curtis Walker on 09-13-2024 Platelets (Bld) [#/Vol] 173 10*3/uL 150-450 [facility] Potassium measurement (mass/ volume)Ordered By: Avni Walker 09-13-2024 Potassium (Unsp spec) [Mass/Vol] 3.9 mmol/L 3.3-5.1 [facility] RBC Auto (Bld) [#/Vol]Ordere d By: Avni Walker 09-13-2024 RBC (Bld) [#/Vol] 3.90 10*6/uL Low 4.6-6.2 [facility] Serum creatinine measurement (mass/volume)Ordered By: Avni Walker 09-13-2024 Creatinine [Mass/Vol] 0.76 mg/dL 0.70-1.20 [facility] Serum globulin measurementOr dered By: Avni Walker on 09-13-2024 Globulin (S) [Mass/Vol] 3.2 g/dL 2.2-4.2 [facility] Serum glucose measurement (m ass/volume)Ordered By: Avni Walker on 09-13-2024 Glucose [Mass/Vol] 115 mg/dL High 70-99 [facility] Serum or plasma alanine sparks otransferase (ALT) measurementOrdered By: Avni Walker on 09-13-2024 ALT [Catalytic activity/Vol] 19 U/L <47 [facility] Serum or plasma albumin brittnee urement (mass/volume)Ordered By: Avni Walker on 09-13-2024 Albumin [Mass/Vol] 4.1 g/dL 3.4-4.8 [facility] Serum or plasma albumin/glob ulin mass ratioOrdered By: Avni Walker 09-13-2024 Albumin/Globulin [Mass ratio] 1.3 {ratio} 0.9-2.4 [facility] Serum or plasma alkaline mallory sphatase measurementOrdered By: Avni Walker 09-13-2024 ALP [Catalytic activity/Vol] 83 U/L 40-129 [facility] Serum or plasma calcium brittnee urement (mass/volume)Ordered By: Avni Walker 09-13-2024 Calcium [Mass/Vol] 9.4 mg/dL 7.6-11.0 [facility] Serum or plasma urea nitroge n measurement (mass/volume)Ordered By: Avni Walker 09-13-2024 Urea nitrogen [Mass/Vol] 24 mg/dL High 4-19 [facility] Sodium levelOrdered By: Avni Walker 09-13-2024 Sodium [Moles/Vol] 140 mmol/L 133-145 [facility] TSH DL <= 0.005 mIU/L QnOrde red By: Avni Walker on 09-13-2024 TSH Qn 1.080 uIU/mL 0.300-4.200 [facility] Thyroid Stim Hormone (TSH)on 09-13-2024 TSH 1.080 uIU/mL Normal 0.300-4.200 [facility] Comment on above: Performed By: #### L 500.2500, L500.3400, L500.4100, L503.6620, L501.9520 #### [facility] [address] [place], [address] Total proteinOrdered By: Avni Walker on 09-13-2024 Protein [Mass/Vol] 7.3 g/dL 5.9-8.4 [facility] Vitamin D,25 Hydroxyon 09-13 Vitamin D 25-OH 52.8 ng/mL Normal 30-100 [facility] Comment on above: Result Comment: Lizz min D Status Deficiency: <20 ng/mL (50nmol/L) Insufficiency: 20-30 ng/mL (50-75 nmol/L) Sufficiency: 30-100 ng/mL (75-250 nmol/L) Toxicity: >100 ng/mL (>250 nmol/L) Performed By: #### L 500.2500, L500.3400, L500.4100, L503.6620, L501.9520 #### [facility] [address] [place], [address] White blood cell (WBC) count Ordered By: Avni Walker on 09-13-2024 WBC (Bld) [#/Vol] 8.2 10*3/uL 4.4-11.0 [facility] Basic Metabolic Profile (BMP )on 05-31-2024 BUN/CRE 26.6 RATIO High 10-20 [facility] Comment on above: Performed By: #### L 500.2500, L500.3400, L500.4100, L503.6620, L501.9520 #### [facility] [address] [place], [address] CA,Total 9.1 mg/dL Normal 8.5-10.1 [facility] Comment on above: Performed By: #### L 500.2500, L500.3400, L500.4100, L503.6620, L501.9520 #### [facility] [address] [place], [address] Chloride [Moles/Vol] 109 mmol/L High 98-107 [facility] Comment on above: Performed By: #### L 500.2500, L500.3400, L500.4100, L503.6620, L501.9520 #### [facility] [address] [place], [address] CO2 [Moles/Vol] 27.0 mmol/L Normal 21.0-32.0 [facility] Comment on above: Performed By: #### L 500.2500, L500.3400, L500.4100, L503.6620, L501.9520 #### [facility] [address] [place], [address] Creatinine [Mass/Vol] 0.83 mg/dL Normal 0.70-1.30 [facility] Comment on above: Result Comment: The validity of the calculated GFR GFRAA in patients over 70 years has not been determined. Clinical correlation is essential. Performed By: #### L 500.2500, L500.3400, L500.4100, L503.6620, L501.9520 #### [facility] [address] [place], [address] ECRCL 87.46 ml/min Normal [facility] Comment on above: Performed By: #### L 500.2500, L500.3400, L500.4100, L503.6620, L501.9520 #### [facility] [address] [place], [address] EST GFR - AA 115 mL/min Normal >60 [facility] Comment on above: Result Comment: Afri can [place] GFR Calc Performed By: #### L 500.2500, L500.3400, L500.4100, L503.6620, L501.9520 #### [facility] [address] [place], [address] GAP 4 Low 5-15 [facility] Comment on above: Performed By: #### L 500.2500, L500.3400, L500.4100, L503.6620, L501.9520 #### [facility] [address] [place], [address] GFR/1.73 sq M.predicted among non-blacks MDRD (S/P/Bld) [Vol rate/Area] 95 mL/min/{1.73_m2} Normal >60 [facility] Comment on above: Result Comment: Non- GFR Calc Performed By: #### L 500.2500, L500.3400, L500.4100, L503.6620, L501.9520 #### [facility] [address] [place], [address] Glucose [Mass/Vol] 107 mg/dL High 74-106 [facility] Comment on above: Result Comment: Fast ing Glucose result from 100 to 125 mg/dL suggests IMPAIRED HOMEOSTASIS per A.D.A. criteria. Performed By: #### L 500.2500, L500.3400, L500.4100, L503.6620, L501.9520 #### [facility] [address] [place], [address] Potassium [Moles/Vol] 3.7 mmol/L Normal 3.5-5.1 [facility] Comment on above: Performed By: #### L 500.2500, L500.3400, L500.4100, L503.6620, L501.9520 #### [facility] [address] [place], [address] Sodium [Moles/Vol] 140 mmol/L Normal 136-145 [facility] Comment on above: Performed By: #### L 500.2500, L500.3400, L500.4100, L503.6620, L501.9520 #### [facility] [address] [place], [address] Urea nitrogen [Mass/Vol] 22 mg/dL High 7-18 [facility] Comment on above: Performed By: #### L 500.2500, L500.3400, L500.4100, L503.6620, L501.9520 #### [facility] [address] [place], [address] CBC W/Diff, Automatedon -05 21-2024 Absolute Lymph 1.65 X10 3/uL Normal 0.83-4.51 [facility] Comment on above: Performed By: #### L 500.2500, L500.3400, L500.4100, L503.6620, L501.9520 #### [facility] [address] [place], [address] Absolute Neut 4.8 X10 3/uL Normal 2.0-7.7 [facility] Comment on above: Performed By: #### L 500.2500, L500.3400, L500.4100, L503.6620, L501.9520 #### [facility] [address] [place], [address] Basophils/100 WBC (Bld) 0.4 % Normal 0-1 [facility] Comment on above: Performed By: #### L 500.2500, L500.3400, L500.4100, L503.6620, L501.9520 #### [facility] [address] [place], [address] Eosinophils/100 WBC (Bld) 4.0 % Normal 0-5 [facility] Comment on above: Performed By: #### L 500.2500, L500.3400, L500.4100, L503.6620, L501.9520 #### [facility] [address] [place], [address] Erythrocyte distribution width (RBC) [Ratio] 13.2 % Normal 11.6-14.6 [facility] Comment on above: Performed By: #### L 500.2500, L500.3400, L500.4100, L503.6620, L501.9520 #### [facility] [address] [place], [address] Hematocrit (Bld) [Volume fraction] 34.3 % Low 40-54 [facility] Comment on above: Performed By: #### L 500.2500, L500.3400, L500.4100, L503.6620, L501.9520 #### [facility] [address] [place], [address] Hemoglobin (Bld) [Mass/Vol] 11.5 g/dL Low 13.0-16.5 [facility] Comment on above: Performed By: #### L 500.2500, L500.3400, L500.4100, L503.6620, L501.9520 #### [facility] [address] [place], [address] IG% 1.100 High 0.0-0.9 [facility] Comment on above: Result Comment: IG% - Immature Granulocytes (promyelocytes, myelocytes and metamyelocytes) > 1% indicates that a LEFT SHIFT is Present. Performed By: #### L 500.2500, L500.3400, L500.4100, L503.6620, L501.9520 #### [facility] [address] [place], [address] Lymphocytes/100 WBC (Bld) 21.8 % Normal 19-41 [facility] Comment on above: Performed By: #### L 500.2500, L500.3400, L500.4100, L503.6620, L501.9520 #### [facility] [address] [place], [address] MCH (RBC) [Entitic mass] 33.9 pg High 27.0-32.0 [facility] Comment on above: Performed By: #### L 500.2500, L500.3400, L500.4100, L503.6620, [id number] #### [facility] [address] [place], [address] MCHC (RBC) [Mass/Vol] 33.5 g/dL Normal 32-36 [facility] Comment on above: Performed By: #### L 500.2500, L500.3400, L500.4100, L503.6620, L501.9520 #### [facility] [address] [place], [address] MCV (RBC) [Entitic vol] 101.2 fL High 80-94 [facility] Comment on above: Performed By: #### L 500.2500, L500.3400, L500.4100, L503.6620, [id number] #### [facility] [address] [place], [address] Monocytes/100 WBC (Bld) 10.2 % High 0-10 [facility] Comment on above: Performed By: #### L 500.2500, L500.3400, L500.4100, L503.6620, L501.9520 #### [facility] [address] [place], [address] Neutrophils/100 WBC (Bld) 62.5 % Normal 47-70 [facility] Comment on above: Performed By: #### L 500.2500, L500.3400, L500.4100, L503.6620, L501.9520 #### [facility] [address] [place], [address] Nucleated RBC (Bld) [#/Vol] 0 10*3/uL Normal 0-5 [facility] Comment on above: Performed By: #### L 500.2500, L500.3400, L500.4100, L503.6620, L501.9520 #### [facility] [address] [place], [address] Platelet mean volume (Bld) [Entitic vol] 11.5 fL Normal 6.2-12.0 [facility] Comment on above: Performed By: #### L 500.2500, L500.3400, L500.4100, L503.6620, L501.9520 #### [facility] [address] [place], [address] Platelets (Bld) [#/Vol] 173 10*3/uL Normal 150-450 [facility] Comment on above: Performed By: #### L 500.2500, L500.3400, L500.4100, L503.6620, L501.9520 #### [facility] [address] [place], [address] RBC (Bld) [#/Vol] 3.39 10*6/uL Low 4.6-6.2 [facility] Comment on above: Performed By: #### L 500.2500, L500.3400, L500.4100, L503.6620, L501.9520 #### [facility] [address] [place], [address] RDW SD 49.2 fl High 35.1-43.9 [facility] Comment on above: Performed By: #### L 500.2500, L500.3400, L500.4100, L503.6620, L501.9520 #### [facility] [address] [place], [address] WBC (Bld) [#/Vol] 7.6 10*3/uL Normal 4.4-11.0 [facility] Comment on above: Performed By: #### L 500.2500, L500.3400, L500.4100, L503.6620, L501.9520 #### [facility] [address] [place], [address] Discharge Instructionon 05-19 Discharge Instruction [facility] Medical Records Department [address] [place] [address] Instructions for Home/Discharge Instructions 05/31/24 1055 MR#: [id number] Acct: [id number] Name: ANTOINE PEREZ Rep #: [id number] : [id number] From: Keith Kuhn MD PCP: Dr. Avni Walker MD Status:ADM IN Discharge Instructions DC O2, CPAP, BIPAP needs Home O2 Discharge instructions: No Follow Up Care Test Results: Test results from this visit will be discussed in further detail at your follow-up appointment, if applicable. Discharge Plan Admission Admit Date/Time: 05/26/24 16:30 Primary Reason for Your Visit: Outside surgical site infection/abscess Attending Provider: Keith Kuhn Primary Care Provider: Avni Walker Chi Consult[employer] Providers: Fabiola Lowery; Ángel Quiroz; Jluis Carter Instructions Additional Instructions / Restrictions: Advised snij-ysj-odmygtr probiotic, lactobacillus 1 tablet twice daily for 1 week. Follow-up in the wound center in 3 days. Discharge Orders/Prescriptions Prescriptions: New amoxicillin-pot clavulanate 875-125 mg tablet 1 tab PO BID 5 Days Qty: 10 0RF Continued pravastatin 40 mg tablet 40 mg PO QHS citalopram 10 mg tablet 10 mg PO DAILY cholecalciferol (vitamin D3) 125 mcg (5,000 unit) capsule 125 mcg PO DAILY lactobacillus combination no.8 3 billion cell capsule 1 cell PO QHS acetaminophen [Tylenol Arthritis Pain] 650 mg tablet extended release 650 mg PO Q12H PRN (Reason: fever or pain) metronidazole 0.75 % gel 1 applic topical DAILY PRN (Reason: SKIN) tamsulosin 0.4 MG capsule 0.4 mg PO DAILY allopurinol 300 MG tablet 300 mg PO DAILY potassium chloride [Klor-Con M20] 20 mEq tablet,ER particles/crystals 20 meq PO DAILY losartan 50 mg tablet 50 mg PO BID Qty: 180 3RF furosemide 40 mg tablet See Rx Instructions .ROUTE .COMPLEX Qty: 90 3RF Dose Instruction: TAKE 1 TABLET BY MOUTH EVERY DAY Rx Instructions: TAKE 1 TABLET BY MOUTH EVERY DAY amiodarone 200 mg tablet 100 mg PO DAILY Qty: 45 3RF metoprolol tartrate 25 mg tablet 25 mg PO BID Qty: 180 3RF Held Eliquis 5 mg tablet 5 mg PO BID Hold Instructions: Start from 06/01/2024 Patient Comments: TAKE 1 TABLET BY MOUTH TWICE A DAY Discontinued cephalexin 500 mg capsule 500 mg PO Q6 Qty: 40 0RF Referrals / Follow Up: Forest Kuhn MD [Med Staff - Active Staff] - Within 1 Week (In the wound center) Avni Walker Chi, MD [Primary Care Provider] - Within 2 Weeks Disposition Disposition (needs filled in before D/C Order can be placed): Home, Self Care 05/31/24 1742 Keith Kuhn MD CC: Dr. Ángel Quiroz MD; Dr. Fabiola Lowery MD; Dr. Jluis Carter MD; Dr. Avni Walker MD Signed Normal [facility] Basic Metabolic Profile (BMP )on 05-30-2024 BUN/CRE 26.6 RATIO High 10-20 [facility] Comment on above: Performed By: #### L 501.1400, L501.9520, L500.4050, L506.1000, L100.0100 #### [facility] [address] [place], [address] CA,Total 9.0 mg/dL Normal 8.5-10.1 [facility] Comment on above: Performed By: #### L 501.1400, L501.9520, L500.4050, L506.1000, L100.0100 #### [facility] [address] [place], [address] Chloride [Moles/Vol] 110 mmol/L High 98-107 [facility] Comment on above: Performed By: #### L 501.1400, L501.9520, L500.4050, L506.1000, L100.0100 #### [facility] [address] [place], [address] CO2 [Moles/Vol] 27.0 mmol/L Normal 21.0-32.0 [facility] Comment on above: Performed By: #### L 501.1400, L501.9520, L500.4050, L506.1000, L100.0100 #### [facility] [address] [place], [address] Creatinine [Mass/Vol] 0.79 mg/dL Normal 0.70-1.30 [facility] Comment on above: Result Comment: The validity of the calculated GFR GFRAA in patients over 70 years has not been determined. Clinical correlation is essential. Performed By: #### L 501.1400, L501.9520, L500.4050, L506.1000, L100.0100 #### [facility] [address] [place], [address] ECRCL 90.74 ml/min Normal [facility] Comment on above: Performed By: #### L 501.1400, L501.9520, L500.4050, L506.1000, L100.0100 #### [facility] [address] [place], [address] EST GFR - AA 122 mL/min Normal >60 [facility] Comment on above: Result Comment: Afri can [place] GFR Calc Performed By: #### L 501.1400, L501.9520, L500.4050, L506.1000, L100.0100 #### [facility] [address] [place], [address] GAP 4 Low 5-15 [facility] Comment on above: Performed By: #### L 501.1400, L501.9520, L500.4050, L506.1000, L100.0100 #### [facility] [address] [place], [address] GFR/1.73 sq M.predicted among non-blacks MDRD (S/P/Bld) [Vol rate/Area] 100 mL/min/{1.73_m2} Normal >60 [facility] Comment on above: Result Comment: Non- GFR Calc Performed By: #### L 501.1400, L501.9520, L500.4050, L506.1000, L100.0100 #### [facility] [address] [place], [address] Glucose [Mass/Vol] 102 mg/dL Normal 74-106 [facility] Comment on above: Result Comment: Fast ing Glucose result from 100 to 125 mg/dL suggests IMPAIRED HOMEOSTASIS per A.D.A. criteria. Performed By: #### L 501.1400, L501.9520, L500.4050, L506.1000, L100.0100 #### [facility] [address] [place], [address] Potassium [Moles/Vol] 3.7 mmol/L Normal 3.5-5.1 [facility] Comment on above: Performed By: #### L 501.1400, L501.9520, L500.4050, L506.1000, L100.0100 #### [facility] [address] [place], [address] Sodium [Moles/Vol] 140 mmol/L Normal 136-145 [facility] Comment on above: Performed By: #### L 501.1400, L501.9520, L500.4050, L506.1000, L100.0100 #### [facility] [address] [place], [address] Urea nitrogen [Mass/Vol] 21 mg/dL High 7-18 [facility] Comment on above: Performed By: #### L 501.1400, L501.9520, L500.4050, L506.1000, L100.0100 #### [facility] [address] [place], [address] CBC W/Diff, Automatedon 05-19 Absolute Lymph 1.58 X10 3/uL Normal 0.83-4.51 [facility] Comment on above: Performed By: #### L 501.1400, L501.9520, L500.4050, L506.1000, L100.0100 #### [facility] [address] [place], [address] Absolute Neut 3.9 X10 3/uL Normal 2.0-7.7 [facility] Comment on above: Performed By: #### L 501.1400, L501.9520, L500.4050, L506.1000, L100.0100 #### [facility] [address] [place], [address] Basophils/100 WBC (Bld) 0.3 % Normal 0-1 [facility] Comment on above: Performed By: #### L 501.1400, L501.9520, L500.4050, L506.1000, L100.0100 #### [facility] [address] [place], [address] Eosinophils/100 WBC (Bld) 4.2 % Normal 0-5 [facility] Comment on above: Performed By: #### L 501.1400, L501.9520, L500.4050, L506.1000, L100.0100 #### [facility] [address] [place], [address] Erythrocyte distribution width (RBC) [Ratio] 13.2 % Normal 11.6-14.6 [facility] Comment on above: Performed By: #### L 501.1400, L501.9520, L500.4050, L506.1000, L100.0100 #### [facility] [address] [place], [address] Hematocrit (Bld) [Volume fraction] 34.4 % Low 40-54 [facility] Comment on above: Performed By: #### L 501.1400, L501.9520, L500.4050, L506.1000, L100.0100 #### [facility] [address] [place], [address] Hemoglobin (Bld) [Mass/Vol] 11.2 g/dL Low 13.0-16.5 [facility] Comment on above: Performed By: #### L 501.1400, L501.9520, L500.4050, L506.1000, L100.0100 #### [facility] [address] [place], [address] IG% 0.600 Normal 0.0-0.9 [facility] Comment on above: Result Comment: IG% - Immature Granulocytes (promyelocytes, myelocytes and metamyelocytes) > 1% indicates that a LEFT SHIFT is Present. Performed By: #### L 501.1400, L501.9520, L500.4050, L506.1000, L100.0100 #### [facility] [address] [place], [address] Lymphocytes/100 WBC (Bld) 23.9 % Normal 19-41 [facility] Comment on above: Performed By: #### L 501.1400, L501.9520, L500.4050, L506.1000, L100.0100 #### [facility] [address] [place], [address] MCH (RBC) [Entitic mass] 33.2 pg High 27.0-32.0 [facility] Comment on above: Performed By: #### L 501.1400, L501.9520, L500.4050, L506.1000, L100.0100 #### [facility] [address] [place], [address] MCHC (RBC) [Mass/Vol] 32.6 g/dL Normal 32-36 [facility] Comment on above: Performed By: #### L 501.1400, L501.9520, L500.4050, L506.1000, L100.0100 #### [facility] [address] [place], [address] MCV (RBC) [Entitic vol] 102.1 fL High 80-94 [facility] Comment on above: Performed By: #### L 501.1400, L501.9520, L500.4050, L506.1000, L100.0100 #### [facility] [address] [place], [address] Monocytes/100 WBC (Bld) 11.8 % High 0-10 [facility] Comment on above: Performed By: #### L 501.1400, L501.9520, L500.4050, L506.1000, L100.0100 #### [facility] [address] [place], [address] Neutrophils/100 WBC (Bld) 59.2 % Normal 47-70 [facility] Comment on above: Performed By: #### L 501.1400, L501.9520, L500.4050, L506.1000, L100.0100 #### [facility] [address] [place], [address] Nucleated RBC (Bld) [#/Vol] 0 10*3/uL Normal 0-5 [facility] Comment on above: Performed By: #### L 501.1400, L501.9520, L500.4050, L506.1000, L100.0100 #### [facility] [address] [place], [address] Platelet mean volume (Bld) [Entitic vol] 11.6 fL Normal 6.2-12.0 [facility] Comment on above: Performed By: #### L 501.1400, L501.9520, L500.4050, L506.1000, L100.0100 #### [facility] [address] [place], [address] Platelets (Bld) [#/Vol] 173 10*3/uL Normal 150-450 [facility] Comment on above: Performed By: #### L 501.1400, L501.9520, L500.4050, L506.1000, L100.0100 #### [facility] [address] [place], [address] RBC (Bld) [#/Vol] 3.37 10*6/uL Low 4.6-6.2 [facility] Comment on above: Performed By: #### L 501.1400, L501.9520, L500.4050, L506.1000, L100.0100 #### [facility] [address] [place], [address] RDW SD 49.9 fl High 35.1-43.9 [facility] Comment on above: Performed By: #### L 501.1400, L501.9520, L500.4050, L506.1000, L100.0100 #### [facility] [address] [place], [address] WBC (Bld) [#/Vol] 6.6 10*3/uL Normal 4.4-11.0 [facility] Comment on above: Performed By: #### L 501.1400, L501.9520, L500.4050, L506.1000, L100.0100 #### [facility] [address] [place], [address] Vancomycin, Random Levelon 0 - VANCO, RANDOM 16.0 ug/mL High 0.0-15.0 [facility] Comment on above: Result Comment: VANC OMYCIN STANDARD DRUG THERAPY: CRITICAL VALUE IS > 15.0 mg/L VANCOMYCIN HIGH INTENSITY THERAPY: CRITICAL VALUE IS > 20.0 mg/L PLEASE CONTACT PHARMACY SERVICES (#7425) FOR INTERPRETATION OF RESULTS. THIS RESULT DOES NOT REPRESENT A PEAK OR TROUGH LEVEL FOR THIS DRUG. Performed By: #### L 500.2500, L500.3400, L500.4100, L503.6620, L501.9520 #### [facility] [address] [place], [address] VANCO, RANDOM 21.9 ug/mL High 0.0-15.0 [facility] Comment on above: Result Comment: VANC OMYCIN STANDARD DRUG THERAPY: CRITICAL VALUE IS > 15.0 mg/L VANCOMYCIN HIGH INTENSITY THERAPY: CRITICAL VALUE IS > 20.0 mg/L PLEASE CONTACT PHARMACY SERVICES (#9524) FOR INTERPRETATION OF RESULTS. THIS RESULT DOES NOT REPRESENT A PEAK OR TROUGH LEVEL FOR THIS DRUG. Performed By: #### L 500.2500, L500.3400, L500.4100, L503.6620, L501.9520 #### [facility] [address] [place], [address] Wound Cultureon 05-30-2024 WC #1 Possible skin contamination, further Identification and sensitivity will be performed only by physician's request. Wound Culture #2 Previously Actinomyces odontolyticus. Susceptibility not normally performed on this organism. Coag Negative Staph Amount Growth Very Rare Schaalia odontolyticus Schaalia odontolyticus Normal [facility] Comment on above: Performed By: #### L 500.2500, L500.3400, L500.4100, L503.6620, L501.9520 #### [facility] [address] [place], [address] Basic Metabolic Profile (BMP )on 05-29-2024 BUN/CRE 25.1 RATIO High 10-20 [facility] Comment on above: Performed By: #### L 500.2500, L500.3400, L500.4100, L503.6620, L501.9520 #### [facility] [address] [place], [address] CA,Total 8.9 mg/dL Normal 8.5-10.1 [facility] Comment on above: Performed By: #### L 500.2500, L500.3400, L500.4100, L503.6620, L501.9520 #### [facility] [address] [place], [address] Chloride [Moles/Vol] 110 mmol/L High 98-107 [facility] Comment on above: Performed By: #### L 500.2500, L500.3400, L500.4100, L503.6620, L501.9520 #### [facility] [address] [place], [address] CO2 [Moles/Vol] 27.0 mmol/L Normal 21.0-32.0 [facility] Comment on above: Performed By: #### L 500.2500, L500.3400, L500.4100, L503.6620, L501.9520 #### [facility] [address] [place], [address] Creatinine [Mass/Vol] 0.84 mg/dL Normal 0.70-1.30 [facility] Comment on above: Result Comment: The validity of the calculated GFR GFRAA in patients over 70 years has not been determined. Clinical correlation is essential. Performed By: #### L 500.2500, L500.3400, L500.4100, L503.6620, L501.9520 #### [facility] [address] [place], [address] ECRCL 86.05 ml/min Normal [facility] Comment on above: Performed By: #### L 500.2500, L500.3400, L500.4100, L503.6620, L501.9520 #### [facility] [address] [place], [address] EST GFR - AA 114 mL/min Normal >60 [facility] Comment on above: Result Comment: Afri can [place] GFR Calc Performed By: #### L 500.2500, L500.3400, L500.4100, L503.6620, L501.9520 #### [facility] [address] [place], [address] GAP 3 Low 5-15 [facility] Comment on above: Performed By: #### L 500.2500, L500.3400, L500.4100, L503.6620, L501.9520 #### [facility] [address] [place], [address] GFR/1.73 sq M.predicted among non-blacks MDRD (S/P/Bld) [Vol rate/Area] 94 mL/min/{1.73_m2} Normal >60 [facility] Comment on above: Result Comment: Non- GFR Calc Performed By: #### L 500.2500, L500.3400, L500.4100, L503.6620, L501.9520 #### [facility] [address] [place], [address] Glucose [Mass/Vol] 113 mg/dL High 74-106 [facility] Comment on above: Result Comment: Fast ing Glucose result from 100 to 125 mg/dL suggests IMPAIRED HOMEOSTASIS per A.D.A. criteria. Performed By: #### L 500.2500, L500.3400, L500.4100, L503.6620, L501.9520 #### [facility] [address] [place], [address] Potassium [Moles/Vol] 3.8 mmol/L Normal 3.5-5.1 [facility] Comment on above: Performed By: #### L 500.2500, L500.3400, L500.4100, L503.6620, L501.9520 #### [facility] [address] [place], [address] Sodium [Moles/Vol] 140 mmol/L Normal 136-145 [facility] Comment on above: Performed By: #### L 500.2500, L500.3400, L500.4100, L503.6620, L501.9520 #### [facility] [address] [place], [address] Urea nitrogen [Mass/Vol] 21 mg/dL High 7-18 [facility] Comment on above: Performed By: #### L 500.2500, L500.3400, L500.4100, L503.6620, L501.9520 #### [facility] [address] [place], [address] CBC W/Diff, Automatedon 05-19 Absolute Lymph 1.58 X10 3/uL Normal 0.83-4.51 [facility] Comment on above: Performed By: #### L 500.2500, L500.3400, L500.4100, L503.6620, L501.9520 #### [facility] [address] [place], [address] Absolute Neut 4.1 X10 3/uL Normal 2.0-7.7 [facility] Comment on above: Performed By: #### L 500.2500, L500.3400, L500.4100, L503.6620, L501.9520 #### [facility] [address] [place], [address] Basophils/100 WBC (Bld) 0.4 % Normal 0-1 [facility] Comment on above: Performed By: #### L 500.2500, L500.3400, L500.4100, L503.6620, L501.9520 #### [facility] [address] [place], [address] Eosinophils/100 WBC (Bld) 4.9 % Normal 0-5 [facility] Comment on above: Performed By: #### L 500.2500, L500.3400, L500.4100, L503.6620, L501.9520 #### [facility] [address] [place], [address] Erythrocyte distribution width (RBC) [Ratio] 13.3 % Normal 11.6-14.6 [facility] Comment on above: Performed By: #### L 500.2500, L500.3400, L500.4100, L503.6620, L501.9520 #### [facility] [address] [place], [address] Hematocrit (Bld) [Volume fraction] 33.7 % Low 40-54 [facility] Comment on above: Performed By: #### L 500.2500, L500.3400, L500.4100, L503.6620, L501.9520 #### [facility] [address] [place], [address] Hemoglobin (Bld) [Mass/Vol] 11.2 g/dL Low 13.0-16.5 [facility] Comment on above: Performed By: #### L 500.2500, L500.3400, L500.4100, L503.6620, L501.9520 #### [facility] [address] [place], [address] IG% 0.600 Normal 0.0-0.9 [facility] Comment on above: Result Comment: IG% - Immature Granulocytes (promyelocytes, myelocytes and metamyelocytes) > 1% indicates that a LEFT SHIFT is Present. Performed By: #### L 500.2500, L500.3400, L500.4100, L503.6620, L501.9520 #### [facility] [address] [place], [address] Lymphocytes/100 WBC (Bld) 23.4 % Normal 19-41 [facility] Comment on above: Performed By: #### L 500.2500, L500.3400, L500.4100, L503.6620, L501.9520 #### [facility] [address] [place], [address] MCH (RBC) [Entitic mass] 33.8 pg High 27.0-32.0 [facility] Comment on above: Performed By: #### L 500.2500, L500.3400, L500.4100, L503.6620, L501.9520 #### [facility] [address] [place], [address] MCHC (RBC) [Mass/Vol] 33.2 g/dL Normal 32-36 [facility] Comment on above: Performed By: #### L 500.2500, L500.3400, L500.4100, L503.6620, L501.9520 #### [facility] [address] [place], [address] MCV (RBC) [Entitic vol] 101.8 fL High 80-94 [facility] Comment on above: Performed By: #### L 500.2500, L500.3400, L500.4100, L503.6620, L501.9520 #### [facility] [address] [place], [address] Monocytes/100 WBC (Bld) 10.4 % High 0-10 [facility] Comment on above: Performed By: #### L 500.2500, L500.3400, L500.4100, L503.6620, L501.9520 #### [facility] [address] [place], [address] Neutrophils/100 WBC (Bld) 60.3 % Normal 47-70 [facility] Comment on above: Performed By: #### L 500.2500, L500.3400, L500.4100, L503.6620, L501.9520 #### [facility] [address] [place], [address] Nucleated RBC (Bld) [#/Vol] 0 10*3/uL Normal 0-5 [facility] Comment on above: Performed By: #### L 500.2500, L500.3400, L500.4100, L503.6620, L501.9520 #### [facility] [address] [place], [address] Platelet mean volume (Bld) [Entitic vol] 12.0 fL Normal 6.2-12.0 [facility] Comment on above: Performed By: #### L 500.2500, L500.3400, L500.4100, L503.6620, L501.9520 #### [facility] [address] [place], [address] Platelets (Bld) [#/Vol] 169 10*3/uL Normal 150-450 [facility] Comment on above: Performed By: #### L 500.2500, L500.3400, L500.4100, L503.6620, L501.9520 #### [facility] [address] [place], [address] RBC (Bld) [#/Vol] 3.31 10*6/uL Low 4.6-6.2 [facility] Comment on above: Performed By: #### L 500.2500, L500.3400, L500.4100, L503.6620, L501.9520 #### [facility] [address] [place], [address] RDW SD 50.0 fl High 35.1-43.9 [facility] Comment on above: Performed By: #### L 500.2500, L500.3400, L500.4100, L503.6620, L501.9520 #### [facility] [address] [place], [address] WBC (Bld) [#/Vol] 6.8 10*3/uL Normal 4.4-11.0 [facility] Comment on above: Performed By: #### L 500.2500, L500.3400, L500.4100, L503.6620, L501.9520 #### [facility] [address] [place], [address] Consultation - Surgicalon Consultation - Surgical [facility] Medical Records Department [address] [place] [address] Consultation - Surgical 05/29/24 1406 MR#: [id number] Acct: [id number] Name: ANTOINE PEREZ Rep #: [id number] : 1945 78 From: Ángel Quiroz MD PCP: Dr. Avni Walker MD Status:ADM IN Location: [place] [address] Assessment Plan Assessment/Plan (1) Abscess: PLAN: Patient has a large abscess on his anterior neck on the right. I removed the packing at the bedside and probed the abscess and there are no other loculations to break up or any other fluctuance or more purulent material. My only recommendation would be to pack less gauze into it so that the cavity can start to collapse. I do not believe there is anything further to incise or drain. Ángel Quiroz MD Pager: [facility] [address] [place] [address], [address] [place] [address] Office: HPI Consult Data Date of Consult: 05/29/24 HPI Narrative HPI Narrative: ANTOINE PEREZ, is a 78 M who presents with facial abscess. The patient reports that he had a biopsy done of his skin lesion and this got infected. The patient had this area incised on Friday. He has been in the hospital since on IV antibiotics. [facility] Medical History Wears hearing aid Depression Alcohol use Bladder disease History of diverticulitis Former smoker Varicose vein of leg History of stress test History of echocardiogram History of Holter monitoring Cardiology follow-up encounter History of atrial fibrillation Bradycardia Typical atrial flutter Left bundle branch block (LBBB) TIMOTHY (obstructive sleep apnea) BPH (benign prostatic hyperplasia) Back pain Thoracic neuritis Segmental and somatic dysfunction of pelvic region Segmental and somatic dysfunction of lumbar region Segmental and somatic dysfunction of thoracic region Fatigue Chronic systolic (congestive) heart failure Obesity Non-ischemic cardiomyopathy Hyperlipidemia Segmental and somatic dysfunction of thoracic region Acute cervical sprain Segmental and somatic dysfunction of cervical region Osteoarthritis Arthritis Benign essential hypertension Home Medications ???Medication ???Instructions ???Recorded ???Last Taken ???Type pravastatin 40 mg tablet 40 mg PO QHS cholesterol 03/02/18 05/25/24 History tamsulosin 0.4 mg capsule 0.4 mg PO DAILY prostate 03/05/18 05/26/24 History allopurinol 300 mg tablet 300 mg PO DAILY gout 01/05/20 05/26/24 History cholecalciferol (vitamin D3) 125 125 mcg PO DAILY supplment 07/19/20 05/26/24 History mcg (5,000 unit) capsule citalopram 10 mg tablet 10 mg PO DAILY depression 07/19/20 05/26/24 History lactobacillus combination no.8 3 1 cell PO QHS probiotic 11/17/20 05/26/24 History billion cell capsule metronidazole 0.75 % topical gel 1 applic topical DAILY PRN SKIN 02/27/21 05/26/24 History losartan 50 mg tablet 50 mg PO BID bp #180 tabs 11/01/21 05/26/24 Rx furosemide 40 mg tablet See Rx Instructions .Route 03/17/23 05/26/24 Rx .COMPLEX water pill #90 tabs apixaban 5 mg tablet (Eliquis) 5 mg PO BID blood thinner 07/14/23 05/25/24 History amiodarone 200 mg tablet 100 mg (1/2 x 200 mg) PO DAILY 07/24/23 05/26/24 Rx blood pressure #45 tabs acetaminophen 650 mg 650 mg PO Q12H PRN fever or pain 03/09/24 05/26/24 History tablet,extended release (Tylenol Arthritis Pain) metoprolol tartrate 25 mg tablet 25 mg PO BID bp #180 tabs 05/10/24 Unknown Rx cephalexin 500 mg capsule 500 mg PO Q6 antibiotic #40 05/23/24 05/26/24 Rx CAPSULES potassium chloride 20 mEq 20 meq PO DAILY replacement 05/27/24 Unknown History tablet,extended release(part/cryst) (Klor-Con M) Allergy/AdvReac Type Severity Reaction Status Date / Time Sulfa (Sulfonamide Allergy Intermediate Hives Verified 05/26/24 12:57 Antibiotics) Family History (Updated 05/26/24 @ 17:[address] Fabiola Lowery MD) Son Asthma Mother Hypertension HLD (hyperlipidemia) Father , in [place] No problems noted. Surgical History History of urethrotomy ( 03/2023) Hx of arthroscopy of knee Hx of arthroplasty Hx of colonoscopy History of radiofrequency ablation procedure for cardiac arrhythmia (08/03/20) History of cardioversion (03/27/20) History of cataract surgery History of laparoscopic cholecystectomy History of colectomy History of knee surgery Social History (Updated 05/26/24 @ 17:[address] Fabiola Lowery MD) household members: spouse Smoking Status: Former smoker how long ago did patient quit smoking: Quit 30 yrs prior (05/24/24) with max 1 ppd since teen until quit. alcohol intake: current alcohol intake frequen (more content not included)... Normal [facility] Vancomycin, Trough Levelon 0 05-29-2024 VANCO, TROUGH 29.0 ug/mL High 5.0-15.0 [facility] Comment on above: Order Comment: Comme nts: Trough to be drawn 30 mins prior to scheduled [id number] Result Comment: VANC OMYCIN STANDARED DRUG THERAPY TROUGH LEVEL: 5.0 - 15.0 mg/L VANCOMYCIN HIGH INTENSITY THERAPY TROUGH LEVEL: 15.0 - 20.0 mg/L High Intensity therapy recommended for serious life threatening infections include: - Meningitis -Endocarditis -Pneumonia (Ventilator/Healtcare Associated) -Sepsis PLEASE CONTACT PHARMACY SERVICES (#[phone]) FOR INTERPRETATION OF RESULTS. Performed By: #### L 500.2500, L500.3400, L500.4100, L503.6620, L501.9520 #### [facility] [address] [place], [address] CBC-Complete Blood Cnt No Di ffon 05-28-2024 Erythrocyte distribution width (RBC) [Ratio] 13.5 % Normal 11.6-14.6 [facility] Comment on above: Performed By: #### L 500.2500, L500.3400, L500.4100, L503.6620, L501.9520 #### [facility] [address] [place], [place], [id number] Hematocrit (Bld) [Volume fraction] 34.8 % Low 40-54 [facility] Comment on above: Performed By: #### L 500.2500, L500.3400, L500.4100, L503.6620, L501.9520 #### [facility] [address] [place], [address] Hemoglobin (Bld) [Mass/Vol] 11.5 g/dL Low 13.0-16.5 [facility] Comment on above: Performed By: #### L 500.2500, L500.3400, L500.4100, L503.6620, L501.9520 #### [facility] [address] [place], [address] MCH (RBC) [Entitic mass] 33.7 pg High 27.0-32.0 [facility] Comment on above: Performed By: #### L 500.2500, L500.3400, L500.4100, L503.6620, L501.9520 #### [facility] [address] [place], [address] MCHC (RBC) [Mass/Vol] 33.0 g/dL Normal 32-36 [facility] Comment on above: Performed By: #### L 500.2500, L500.3400, L500.4100, L503.6620, L501.9520 #### [facility] [address] [place], [address] MCV (RBC) [Entitic vol] 102.1 fL High 80-94 [facility] Comment on above: Performed By: #### L 500.2500, L500.3400, L500.4100, L503.6620, L501.9520 #### [facility] [address] [place], [address] Platelet mean volume (Bld) [Entitic vol] 12.0 fL Normal 6.2-12.0 [facility] Comment on above: Performed By: #### L 500.2500, L500.3400, L500.4100, L503.6620, L501.9520 #### [facility] [address] [place], [address] Platelets (Bld) [#/Vol] 160 10*3/uL Normal 150-450 [facility] Comment on above: Performed By: #### L 500.2500, L500.3400, L500.4100, L503.6620, L501.9520 #### [facility] [address] [place], [address] RBC (Bld) [#/Vol] 3.41 10*6/uL Low 4.6-6.2 [facility] Comment on above: Performed By: #### L 500.2500, L500.3400, L500.4100, L503.6620, L501.9520 #### [facility] [address] [place], [address] RDW SD 50.8 fl High 35.1-43.9 [facility] Comment on above: Performed By: #### L 500.2500, L500.3400, L500.4100, L503.6620, L501.9520 #### [facility] [address] [place], [address] WBC (Bld) [#/Vol] 6.6 10*3/uL Normal 4.4-11.0 [facility] Comment on above: Performed By: #### L 500.2500, L500.3400, L500.4100, L503.6620, L501.9520 #### [facility] [address] [place], [address] Comprehensive Metabolic Prof ilon 05-28-2024 Albumin [Mass/Vol] 3.0 g/dL Low 3.2-5.0 [facility] Comment on above: Performed By: #### L 500.2500, L500.3400, L500.4100, L503.6620, L501.9520 #### [facility] [address] [place], [address] Albumin/Globulin [Mass ratio] 0.8 {ratio} Low 0.9-2.4 [facility] Comment on above: Performed By: #### L 500.2500, L500.3400, L500.4100, L503.6620, L501.9520 #### [facility] [address] [place], [address] ALK P 74 U/L Normal 45-117 [facility] Comment on above: Performed By: #### L 500.2500, L500.3400, L500.4100, L503.6620, L501.9520 #### [facility] [address] [place], [address] ALT [Catalytic activity/Vol] 22 U/L Normal 16-61 [facility] Comment on above: Performed By: #### L 500.2500, L500.3400, L500.4100, L503.6620, L501.9520 #### [facility] [address] [place], [address] AST [Catalytic activity/Vol] 15 U/L Normal 15-37 [facility] Comment on above: Performed By: #### L 500.2500, L500.3400, L500.4100, L503.6620, L501.9520 #### [facility] [address] [place], [address] Bilirubin [Mass/Vol] 0.50 mg/dL Normal 0.20-1.00 [facility] Comment on above: Result Comment: For patients on eltrombopag therapy, use of Dimension [place] TBIL is not recommended. Performed By: #### L 500.2500, L500.3400, L500.4100, L503.6620, L501.9520 #### [facility] [address] [place], [address] BUN/CRE 25.9 RATIO High 10-20 [facility] Comment on above: Performed By: #### L 500.2500, L500.3400, L500.4100, L503.6620, L501.9520 #### [facility] [address] [place], [address] CA,Total 8.9 mg/dL Normal 8.5-10.1 [facility] Comment on above: Performed By: #### L 500.2500, L500.3400, L500.4100, L503.6620, L501.9520 #### [facility] [address] [place], [address] Chloride [Moles/Vol] 111 mmol/L High 98-107 [facility] Comment on above: Performed By: #### L 500.2500, L500.3400, L500.4100, L503.6620, L501.9520 #### [facility] [address] [place], [address] CO2 [Moles/Vol] 25.0 mmol/L Normal 21.0-32.0 [facility] Comment on above: Performed By: #### L 500.2500, L500.3400, L500.4100, L503.6620, L501.9520 #### [facility] [address] [place], [address] Creatinine [Mass/Vol] 0.77 mg/dL Normal 0.70-1.30 [facility] Comment on above: Result Comment: The validity of the calculated GFR GFRAA in patients over 70 years has not been determined. Clinical correlation is essential. Performed By: #### L 500.2500, L500.3400, L500.4100, L503.6620, L501.9520 #### [facility] [address] [place], [address] ECRCL 90.36 ml/min Normal [facility] Comment on above: Performed By: #### L 500.2500, L500.3400, L500.4100, L503.6620, L501.9520 #### [facility] [address] [place], [address] EST GFR - AA 125 mL/min Normal >60 [facility] Comment on above: Result Comment: Afri can [place] GFR Calc Performed By: #### L 500.2500, L500.3400, L500.4100, L503.6620, L501.9520 #### [facility] [address] [place], [address] GAP 4 Low 5-15 [facility] Comment on above: Performed By: #### L 500.2500, L500.3400, L500.4100, L503.6620, L501.9520 #### [facility] [address] [place], [address] GFR/1.73 sq M.predicted among non-blacks MDRD (S/P/Bld) [Vol rate/Area] 103 mL/min/{1.73_m2} Normal >60 [facility] Comment on above: Result Comment: Non- GFR Calc Performed By: #### L 500.2500, L500.3400, L500.4100, L503.6620, L501.9520 #### [facility] [address] [place], [address] Globulin (S) [Mass/Vol] 3.8 g/dL Normal 2.2-4.2 [facility] Comment on above: Performed By: #### L 500.2500, L500.3400, L500.4100, L503.6620, L501.9520 #### [facility] [address] [place], [address] Glucose [Mass/Vol] 115 mg/dL High 74-106 [facility] Comment on above: Result Comment: Fast ing Glucose result from 100 to 125 mg/dL suggests IMPAIRED HOMEOSTASIS per A.D.A. criteria. Performed By: #### L 500.2500, L500.3400, L500.4100, L503.6620, L501.9520 #### [facility] [address] [place], [address] Potassium [Moles/Vol] 4.1 mmol/L Normal 3.5-5.1 [facility] Comment on above: Performed By: #### L 500.2500, L500.3400, L500.4100, L503.6620, L501.9520 #### [facility] [address] [place], [address] Sodium [Moles/Vol] 140 mmol/L Normal 136-145 [facility] Comment on above: Performed By: #### L 500.2500, L500.3400, L500.4100, L503.6620, L501.9520 #### [facility] [address] [place], [address] T PROT 6.8 g/dL Normal 6.4-8.2 [facility] Comment on above: Performed By: #### L 500.2500, L500.3400, L500.4100, L503.6620, L501.9520 #### [facility] [address] [place], [address] Urea nitrogen [Mass/Vol] 20 mg/dL High 7-18 [facility] Comment on above: Performed By: #### L 500.2500, L500.3400, L500.4100, L503.6620, L501.9520 #### [facility] [address] [place], [address] M8200.1000on 05-28-2024 [id number] Normal Reference Ran ge = Negative MRSA DNA Nose Ql PADDY+probe GeneXpert Instrument, PCR method MRSA PCR MRSA NEGATIVE * This is an amended result. * A prior result that was reported as final has been changed. 05/29/24 0811 by TAVON Martínez [facility] Comment on above: Performed By: #### L 500.2500, L500.3400, L500.4100, L503.6620, L501.9520 #### [facility] [address] [place], [address] Magnesiumon 05-28-2024 Magnesium [Mass/Vol] 2.4 mg/dL Normal 1.6-2.6 [facility] Comment on above: Performed By: #### L 500.2500, L500.3400, L500.4100, L503.6620, L501.9520 #### [facility] [address] [place], [address] Phosphoruson 05-28-2024 Phosphate [Mass/Vol] 3.9 mg/dL Normal 2.5-4.9 [facility] Comment on above: Performed By: #### L 500.2500, L500.3400, L500.4100, L503.6620, L501.9520 #### [facility] [address] [place], [address] CBC W/Diff, Automatedon Absolute Lymph 1.26 X10 3/uL Normal 0.83-4.51 [facility] Comment on above: Performed By: #### L 500.2500, L500.3400, L500.4100, L503.6620, L501.9520 #### [facility] [address] [place], [address] Absolute Neut 5.6 X10 3/uL Normal 2.0-7.7 [facility] Comment on above: Performed By: #### L 500.2500, L500.3400, L500.4100, L503.6620, L501.9520 #### [facility] [address] [place], [address] Basophils/100 WBC (Bld) 0.4 % Normal 0-1 [facility] Comment on above: Performed By: #### L 500.2500, L500.3400, L500.4100, L503.6620, L501.9520 #### [facility] [address] [place], [address] Eosinophils/100 WBC (Bld) 3.2 % Normal 0-5 [facility] Comment on above: Performed By: #### L 500.2500, L500.3400, L500.4100, L503.6620, L501.9520 #### [facility] [address] [place], [address] Erythrocyte distribution width (RBC) [Ratio] 13.6 % Normal 11.6-14.6 [facility] Comment on above: Performed By: #### L 500.2500, L500.3400, L500.4100, L503.6620, L501.9520 #### [facility] [address] [place], [address] Hematocrit (Bld) [Volume fraction] 34.5 % Low 40-54 [facility] Comment on above: Performed By: #### L 500.2500, L500.3400, L500.4100, L503.6620, L501.9520 #### [facility] [address] [place], [address] Hemoglobin (Bld) [Mass/Vol] 11.2 g/dL Low 13.0-16.5 [facility] Comment on above: Performed By: #### L 500.2500, L500.3400, L500.4100, L503.6620, L501.9520 #### [facility] [address] [place], [address] IG% 0.700 Normal 0.0-0.9 [facility] Comment on above: Result Comment: IG% - Immature Granulocytes (promyelocytes, myelocytes and metamyelocytes) > 1% indicates that a LEFT SHIFT is Present. Performed By: #### L 500.2500, L500.3400, L500.4100, L503.6620, L501.9520 #### [facility] [address] [place], [address] Lymphocytes/100 WBC (Bld) 15.5 % Low 19-41 [facility] Comment on above: Performed By: #### L 500.2500, L500.3400, L500.4100, L503.6620, L501.9520 #### [facility] [address] [place], [address] MCH (RBC) [Entitic mass] 33.4 pg High 27.0-32.0 [facility] Comment on above: Performed By: #### L 500.2500, L500.3400, L500.4100, L503.6620, L501.9520 #### [facility] [address] [place], [address] MCHC (RBC) [Mass/Vol] 32.5 g/dL Normal 32-36 [facility] Comment on above: Performed By: #### L 500.2500, L500.3400, L500.4100, L503.6620, L501.9520 #### [facility] [address] [place], [address] MCV (RBC) [Entitic vol] 103.0 fL High 80-94 [facility] Comment on above: Performed By: #### L 500.2500, L500.3400, L500.4100, L503.6620, L501.9520 #### [facility] [address] [place], [address] Monocytes/100 WBC (Bld) 11.9 % High 0-10 [facility] Comment on above: Performed By: #### L 500.2500, L500.3400, L500.4100, L503.6620, L501.9520 #### [facility] [address] [place], [address] Neutrophils/100 WBC (Bld) 68.3 % Normal 47-70 [facility] Comment on above: Performed By: #### L 500.2500, L500.3400, L500.4100, L503.6620, L501.9520 #### [facility] [address] [place], [address] Nucleated RBC (Bld) [#/Vol] 0 10*3/uL Normal 0-5 [facility] Comment on above: Performed By: #### L 500.2500, L500.3400, L500.4100, L503.6620, L501.9520 #### [facility] [address] [place], [address] Platelet mean volume (Bld) [Entitic vol] 12.4 fL High 6.2-12.0 [facility] Comment on above: Performed By: #### L 500.2500, L500.3400, L500.4100, L503.6620, L501.9520 #### [facility] [address] [place], [address] Platelets (Bld) [#/Vol] 149 10*3/uL Low 150-450 [facility] Comment on above: Performed By: #### L 500.2500, L500.3400, L500.4100, L503.6620, L501.9520 #### [facility] [address] [place], [address] RBC (Bld) [#/Vol] 3.35 10*6/uL Low 4.6-6.2 [facility] Comment on above: Performed By: #### L 500.2500, L500.3400, L500.4100, L503.6620, L501.9520 #### [facility] [address] [place], [address] RDW SD 51.4 fl High 35.1-43.9 [facility] Comment on above: Performed By: #### L 500.2500, L500.3400, L500.4100, L503.6620, L501.9520 #### [facility] [address] [place], [address] WBC (Bld) [#/Vol] 8.2 10*3/uL Normal 4.4-11.0 [facility] Comment on above: Performed By: #### L 500.2500, L500.3400, L500.4100, L503.6620, L501.9520 #### [facility] [address] [place], [address] Comprehensive Metabolic Prof ilon 05-27-2024 Albumin [Mass/Vol] 3.1 g/dL Low 3.2-5.0 [facility] Comment on above: Performed By: #### L 500.2500, L500.3400, L500.4100, L503.6620, L501.9520 #### [facility] [address] [place], [address] Albumin/Globulin [Mass ratio] 0.9 {ratio} Normal 0.9-2.4 [facility] Comment on above: Performed By: #### L 500.2500, L500.3400, L500.4100, L503.6620, L501.9520 #### [facility] [address] [place], [address] ALK P 78 U/L Normal 45-117 [facility] Comment on above: Performed By: #### L 500.2500, L500.3400, L500.4100, L503.6620, L501.9520 #### [facility] [address] [place], [address] ALT [Catalytic activity/Vol] 22 U/L Normal 16-61 [facility] Comment on above: Performed By: #### L 500.2500, L500.3400, L500.4100, L503.6620, L501.9520 #### [facility] [address] [place], [address] AST [Catalytic activity/Vol] 13 U/L Low 15-37 [facility] Comment on above: Performed By: #### L 500.2500, L500.3400, L500.4100, L503.6620, L501.9520 #### [facility] [address] [place], [address] Bilirubin [Mass/Vol] 0.40 mg/dL Normal 0.20-1.00 [facility] Comment on above: Result Comment: For patients on eltrombopag therapy, use of Dimension [place] TBIL is not recommended. Performed By: #### L 500.2500, L500.3400, L500.4100, L503.6620, L501.9520 #### [facility] [address] [place], [address] BUN/CRE 32.4 RATIO High 10-20 [facility] Comment on above: Performed By: #### L 500.2500, L500.3400, L500.4100, L503.6620, L501.9520 #### [facility] [address] [place], [address] CA,Total 8.9 mg/dL Normal 8.5-10.1 [facility] Comment on above: Performed By: #### L 500.2500, L500.3400, L500.4100, L503.6620, L501.9520 #### [facility] [address] [place], [address] Chloride [Moles/Vol] 109 mmol/L High 98-107 [facility] Comment on above: Performed By: #### L 500.2500, L500.3400, L500.4100, L503.6620, L501.9520 #### [facility] [address] [place], [address] CO2 [Moles/Vol] 26.0 mmol/L Normal 21.0-32.0 [facility] Comment on above: Performed By: #### L 500.2500, L500.3400, L500.4100, L503.6620, L501.9520 #### [facility] [address] [place], [address] Creatinine [Mass/Vol] 0.68 mg/dL Low 0.70-1.30 [facility] Comment on above: Result Comment: The validity of the calculated GFR GFRAA in patients over 70 years has not been determined. Clinical correlation is essential. Performed By: #### L 500.2500, L500.3400, L500.4100, L503.6620, L501.9520 #### [facility] [address] [place], [address] ECRCL 90.57 ml/min Normal [facility] Comment on above: Performed By: #### L 500.2500, L500.3400, L500.4100, L503.6620, L501.9520 #### [facility] [address] [place], [address] EST GFR - AA 145 mL/min Normal >60 [facility] Comment on above: Result Comment: Afri can [place] GFR Calc Performed By: #### L 500.2500, L500.3400, L500.4100, L503.6620, L501.9520 #### [facility] [address] [place], [address] GAP 4 Low 5-15 [facility] Comment on above: Performed By: #### L 500.2500, L500.3400, L500.4100, L503.6620, L501.9520 #### [facility] [address] [place], [address] GFR/1.73 sq M.predicted among non-blacks MDRD (S/P/Bld) [Vol rate/Area] 120 mL/min/{1.73_m2} Normal >60 [facility] Comment on above: Result Comment: Non- GFR Calc Performed By: #### L 500.2500, L500.3400, L500.4100, L503.6620, L501.9520 #### [facility] [address] [place], [address] Globulin (S) [Mass/Vol] 3.5 g/dL Normal 2.2-4.2 [facility] Comment on above: Performed By: #### L 500.2500, L500.3400, L500.4100, L503.6620, L501.9520 #### [facility] [address] [place], [address] Glucose [Mass/Vol] 109 mg/dL High 74-106 [facility] Comment on above: Result Comment: Fast ing Glucose result from 100 to 125 mg/dL suggests IMPAIRED HOMEOSTASIS per A.D.A. criteria. Performed By: #### L 500.2500, L500.3400, L500.4100, L503.6620, L501.9520 #### [facility] [address] [place], [address] Potassium [Moles/Vol] 4.0 mmol/L Normal 3.5-5.1 [facility] Comment on above: Performed By: #### L 500.2500, L500.3400, L500.4100, L503.6620, L501.9520 #### [facility] [address] [place], [address] Sodium [Moles/Vol] 138 mmol/L Normal 136-145 [facility] Comment on above: Performed By: #### L 500.2500, L500.3400, L500.4100, L503.6620, L501.9520 #### [facility] [address] [place], [address] T PROT 6.6 g/dL Normal 6.4-8.2 [facility] Comment on above: Performed By: #### L 500.2500, L500.3400, L500.4100, L503.6620, L501.9520 #### [facility] [address], [address] Urea nitrogen [Mass/Vol] 22 mg/dL High 7-18 [facility] Comment on above: Performed By: #### L 500.2500, L500.3400, L500.4100, L503.6620, L501.9520 #### [facility] [address] [place], [address] Gram Stainon 05-27-2024 GS Gram Stain 1+ Gram positive cocci 4+ Gram variable bridgette No Epithelial cells 2+ White Blood Cells Normal [facility] Comment on above: Performed By: #### L 500.2500, L500.3400, L500.4100, L503.6620, L501.9520 #### [facility] [address] [place], [address] Vancomycin, Trough Levelon 0 05-27-2024 VANCO, TROUGH 19.6 ug/mL High 5.0-15.0 [facility] Comment on above: Order Comment: Comme nts: Trough to be drawn 30 mins prior to scheduled dose Result Comment: VANC OMYCIN STANDARED DRUG THERAPY TROUGH LEVEL: 5.0 - 15.0 mg/L VANCOMYCIN HIGH INTENSITY THERAPY TROUGH LEVEL: 15.0 - 20.0 mg/L High Intensity therapy recommended for serious life threatening infections include: - Meningitis -Endocarditis -Pneumonia (Ventilator/Healtcare Associated) -Sepsis PLEASE CONTACT PHARMACY SERVICES (#[phone]) FOR INTERPRETATION OF RESULTS. Performed By: #### L 501.1400, L501.9520, L500.4050, L506.1000, L100.0100 #### [facility] [address] [place], [address] Basic Metabolic Profile (BMP )on 05-26-2024 BUN/CRE 29.4 RATIO High 10-20 [facility] Comment on above: Performed By: #### L 500.2500, L500.3400, L500.4100, L503.6620, L501.9520 #### [facility] [address] [place], [address] CA,Total 9.4 mg/dL Normal 8.5-10.1 [facility] Comment on above: Performed By: #### L 500.2500, L500.3400, L500.4100, L503.6620, L501.9520 #### [facility] [address] [place], [address] Chloride [Moles/Vol] 106 mmol/L Normal 98-107 [facility] Comment on above: Performed By: #### L 500.2500, L500.3400, L500.4100, L503.6620, L501.9520 #### [facility] [address] [place], [address] CO2 [Moles/Vol] 28.0 mmol/L Normal 21.0-32.0 [facility] Comment on above: Performed By: #### L 500.2500, L500.3400, L500.4100, L503.6620, L501.9520 #### [facility] [address] [place], [address] Creatinine [Mass/Vol] 0.78 mg/dL Normal 0.70-1.30 [facility] Comment on above: Result Comment: The validity of the calculated GFR GFRAA in patients over 70 years has not been determined. Clinical correlation is essential. Performed By: #### L 500.2500, L500.3400, L500.4100, L503.6620, L501.9520 #### [facility] [address] [place], [address] ECRCL 91.08 ml/min Normal [facility] Comment on above: Performed By: #### L 500.2500, L500.3400, L500.4100, L503.6620, L501.9520 #### [facility] [address] [place], [address] EST GFR - AA 123 mL/min Normal >60 [facility] Comment on above: Result Comment: Afri can [place] GFR Calc Performed By: #### L 500.2500, L500.3400, L500.4100, L503.6620, L501.9520 #### [facility] [address] [place], [address] GAP 3 Low 5-15 [facility] Comment on above: Performed By: #### L 500.2500, L500.3400, L500.4100, L503.6620, L501.9520 #### [facility] [address] [place], [address] GFR/1.73 sq M.predicted among non-blacks MDRD (S/P/Bld) [Vol rate/Area] 102 mL/min/{1.73_m2} Normal >60 [facility] Comment on above: Result Comment: Non- GFR Calc Performed By: #### L 500.2500, L500.3400, L500.4100, L503.6620, L501.9520 #### [facility] [address] [place], [address] Glucose [Mass/Vol] 118 mg/dL High 74-106 [facility] Comment on above: Result Comment: Fast ing Glucose result from 100 to 125 mg/dL suggests IMPAIRED HOMEOSTASIS per A.D.A. criteria. Performed By: #### L 500.2500, L500.3400, L500.4100, L503.6620, L501.9520 #### [facility] [address] [place], [address] Potassium [Moles/Vol] 4.2 mmol/L Normal 3.5-5.1 [facility] Comment on above: Performed By: #### L 500.2500, L500.3400, L500.4100, L503.6620, L501.9520 #### [facility] [address] [place], [address] Sodium [Moles/Vol] 137 mmol/L Normal 136-145 [facility] Comment on above: Performed By: #### L 500.2500, L500.3400, L500.4100, L503.6620, L501.9520 #### [facility] [address] [place], [address] Urea nitrogen [Mass/Vol] 23 mg/dL High 7-18 [facility] Comment on above: Performed By: #### L 500.2500, L500.3400, L500.4100, L503.6620, L501.9520 #### [facility] [address] [place], [address] CBC W/Diff, Automatedon 01-0 8-2024 Absolute Lymph 1.38 X10 3/uL Normal 0.83-4.51 [facility] Comment on above: Performed By: #### L 500.2500, L500.3400, L500.4100, L503.6620, L501.9520 #### [facility] [address] [place], [address] Absolute Neut 7.3 X10 3/uL Normal 2.0-7.7 [facility] Comment on above: Performed By: #### L 500.2500, L500.3400, L500.4100, L503.6620, L501.9520 #### [facility] [address] [place], [address] Basophils/100 WBC (Bld) 0.2 % Normal 0-1 [facility] Comment on above: Performed By: #### L 500.2500, L500.3400, L500.4100, L503.6620, L501.9520 #### [facility] [address] [place], [address] Eosinophils/100 WBC (Bld) 1.7 % Normal 0-5 [facility] Comment on above: Performed By: #### L 500.2500, L500.3400, L500.4100, L503.6620, L501.9520 #### [facility] [address] [place], [address] Erythrocyte distribution width (RBC) [Ratio] 13.8 % Normal 11.6-14.6 [facility] Comment on above: Performed By: #### L 500.2500, L500.3400, L500.4100, L503.6620, L501.9520 #### [facility] [address] [place], [address] Hematocrit (Bld) [Volume fraction] 35.8 % Low 40-54 [facility] Comment on above: Performed By: #### L 500.2500, L500.3400, L500.4100, L503.6620, L501.9520 #### [facility] [address] [place], [address] Hemoglobin (Bld) [Mass/Vol] 12.2 g/dL Low 13.0-16.5 [facility] Comment on above: Performed By: #### L 500.2500, L500.3400, L500.4100, L503.6620, L501.9520 #### [facility] [address] [place], [address] IG% 0.700 Normal 0.0-0.9 [facility] Comment on above: Result Comment: IG% - Immature Granulocytes (promyelocytes, myelocytes and metamyelocytes) > 1% indicates that a LEFT SHIFT is Present. Performed By: #### L 500.2500, L500.3400, L500.4100, L503.6620, L501.9520 #### [facility] [address] [place], [address] Lymphocytes/100 WBC (Bld) 13.8 % Low 19-41 [facility] Comment on above: Performed By: #### L 500.2500, L500.3400, L500.4100, L503.6620, L501.9520 #### [facility] [address] [place], [address] MCH (RBC) [Entitic mass] 33.8 pg High 27.0-32.0 [facility] Comment on above: Performed By: #### L 500.2500, L500.3400, L500.4100, L503.6620, L501.9520 #### [facility] [address] [place], [address] MCHC (RBC) [Mass/Vol] 34.1 g/dL Normal 32-36 [facility] Comment on above: Performed By: #### L 500.2500, L500.3400, L500.4100, L503.6620, L501.9520 #### [facility] [address] [place], [address] MCV (RBC) [Entitic vol] 99.2 fL High 80-94 [facility] Comment on above: Performed By: #### L 500.2500, L500.3400, L500.4100, L503.6620, L501.9520 #### [facility] [address] [place], [address] Monocytes/100 WBC (Bld) 10.6 % High 0-10 [facility] Comment on above: Performed By: #### L 500.2500, L500.3400, L500.4100, L503.6620, L501.9520 #### [facility] [address] [place], [address] Neutrophils/100 WBC (Bld) 73.0 % High 47-70 [facility] Comment on above: Performed By: #### L 500.2500, L500.3400, L500.4100, L503.6620, L501.9520 #### [facility] [address] [place], [address] Nucleated RBC (Bld) [#/Vol] 0 10*3/uL Normal 0-5 [facility] Comment on above: Performed By: #### L 500.2500, L500.3400, L500.4100, L503.6620, L501.9520 #### [facility] [address] [place], [address] Platelet mean volume (Bld) [Entitic vol] 12.1 fL High 6.2-12.0 [facility] Comment on above: Performed By: #### L 500.2500, L500.3400, L500.4100, L503.6620, L501.9520 #### [facility] [address] [place], [address] Platelets (Bld) [#/Vol] 151 10*3/uL Normal 150-450 [facility] Comment on above: Performed By: #### L 500.2500, L500.3400, L500.4100, L503.6620, L501.9520 #### [facility] [address] [place], [address] RBC (Bld) [#/Vol] 3.61 10*6/uL Low 4.6-6.2 [facility] Comment on above: Performed By: #### L 500.2500, L500.3400, L500.4100, L503.6620, L501.9520 #### [facility] [address] [place], [address] RDW SD 49.9 fl High 35.1-43.9 [facility] Comment on above: Performed By: #### L 500.2500, L500.3400, L500.4100, L503.6620, L501.9520 #### [facility] [address] [place], [address] WBC (Bld) [#/Vol] 10.0 10*3/uL Normal 4.4-11.0 [facility] Comment on above: Performed By: #### L 500.2500, L500.3400, L500.4100, L503.6620, L501.9520 #### [facility] [address] [place], [address] Emergency Department Summary on 05-26-2024 Emergency Department Summary [facility] Medical Records Department [address] [place] [address] Emergency Department Summary 05/26/24 MR#: [id number] Acct: [id number] Name: ANTOINE PEREZ Rep #: [id number] : 1945 78 From: Paco Bailey MD PCP: Dr. Avni Walker MD Status:ADM IN Location: [address] History of Present Illness Chief Complaint: Cellulitis Detail of Chief Complaint: Submental abscess Informant: patient Onset/Context/Timing Onset: Days Context: Gradual Onset Timing: Continuous Current Severity: Moderate Maximum Severity: Moderate Narrative Narrative: 78-year-old male history of A-fib on Eliquis. On May 20 he had a lymph node biopsy done. Interventional radiology. Patient subsequently developed cellulitis. Was placed on Keflex. He has been on Keflex for about 3 to 4 days. The swelling is now getting worse. He has pus draining from the wound. Prior similar symptoms: No Recent Illness/Hospitalization : No PFSH [facility] Medical History Wears hearing aid Depression Alcohol use Bladder disease History of diverticulitis Former smoker Varicose vein of leg History of stress test History of echocardiogram History of Holter monitoring Cardiology follow-up encounter History of atrial fibrillation Bradycardia Typical atrial flutter Left bundle branch block (LBBB) TIMOTHY (obstructive sleep apnea) BPH (benign prostatic hyperplasia) Back pain Thoracic neuritis Segmental and somatic dysfunction of pelvic region Segmental and somatic dysfunction of lumbar region Segmental and somatic dysfunction of thoracic region Fatigue Chronic systolic (congestive) heart failure Obesity Non-ischemic cardiomyopathy Hyperlipidemia Segmental and somatic dysfunction of thoracic region Acute cervical sprain Segmental and somatic dysfunction of cervical region Osteoarthritis Arthritis Benign essential hypertension Home Medications ???Medication ???Instructions ???Recorded ???Last Taken ???Type pravastatin 40 mg tablet 40 mg PO QHS cholesterol 03/02/18 01/07/22 History tamsulosin 0.4 mg capsule 0.4 mg PO DAILY prostate 03/05/18 01/08/22 History allopurinol 300 mg tablet 300 mg PO DAILY gout 01/05/20 01/08/22 History cholecalciferol (vitamin D3) 125 125 mcg PO DAILY 07/19/20 01/08/22 History mcg (5,000 unit) capsule citalopram 10 mg tablet 10 mg PO DAILY 07/19/20 01/08/22 History lactobacillus combination no.8 3 1 cell PO QHS 11/17/20 01/07/22 History billion cell capsule metronidazole 0.75 % topical gel 1 applic topical DAILY PRN SKIN 02/27/21 Unknown History losartan 50 mg tablet 50 mg PO BID bp #180 tabs 11/01/21 03/19/23 Rx furosemide 40 mg tablet See Rx Instructions .Route 03/17/23 Unknown Rx .COMPLEX #90 tabs apixaban 5 mg tablet (Eliquis) 5 mg PO BID 07/14/23 Unknown History amiodarone 200 mg tablet 100 mg (1/2 x 200 mg) PO DAILY #45 07/24/23 Unknown Rx tabs acetaminophen 650 mg 650 mg PO Q12H PRN fever or pain 03/09/24 Unknown History tablet,extended release (Tylenol Arthritis Pain) metoprolol tartrate 25 mg tablet 25 mg PO BID #180 tabs 05/10/24 Unknown Rx cephalexin 500 mg capsule 500 mg PO Q6 #40 CAPSULES 05/23/24 Unknown Rx Allergy/AdvReac Type Severity Reaction Status Date / Time Sulfa (Sulfonamide Allergy Intermediate Hives Verified 05/26/24 12:57 Antibiotics) Family History Son Asthma Surgical History History of urethrotomy ( 03/2023) Hx of arthroscopy of knee Hx of arthroplasty Hx of colonoscopy History of radiofrequency ablation procedure for cardiac arrhythmia (08/03/20) History of cardioversion (03/27/20) History of cataract surgery History of laparoscopic cholecystectomy History of colectomy History of knee surgery Social History Smoking Status: Former smoker how long ago did patient quit smokin years ago alcohol intake: current alcohol intake frequency: a few times a week substance use type: does not use ROS ROS ED ROS Narrative Denies recent illness. Constitutional Constitutional ED: Denies chills or fever(s) Eyes Eyes: Denies blurry vision ENT ENT ED: Denies ear pain Cardiovascular Cardiovascular: Denies chest pain Respiratory/Chest Respiratory/Chest: Denies cough Gastrointestinal Gastrointestinal: Denies abdominal pain Genitourinary Genitourinary ED: Denies dysuria Musculoskeletal Musculoskeletal: Denies arthralgias Integumentary Reports abscess; Denies Abrasions Neurologic Neurologic: Denies headache(s) Psychiatric Psychiatric: Denies anxiety Endocrine Endocrinology: Denies cold intolerance Hematologic/Lymphatic Prosper (more content not included)... Normal [facility] H AND P Exam - Hospitaliston 05-26-2024 H&P Exam - Hospitalist [facility] Medical Records Department [address] [place] [address] H P Exam - Hospitalist 05/26/24 1623 MR#: [id number] Acct: [id number] Name: ANTOINE PEREZ Rep #: [id number] : 1945 78 From: Fabiola Lowery MD PCP: Dr. Avni Walker MD Status:ADM IN Location: [facility] [id number] HPI - General General Date of Admission: 05/26/24 Date of Service: 05/26/24 Chief Complaint: Worsening R neck cellulitis, abscess. HPI Narrative The patient is a 78 y/o M w/ PMHx: Chronic macrocytic anemia, Obesity, Anxiety and Depression, Former tobacco use, PAF/Flutter, Chronic bradycardia, BPH with obstructive pathology, Nonischemic cardiomyopathy who presents to the [facility] ED on 05/26/24 with history of recent May 20 lymph node biopsy by interventional radiology with following the subsequent of the development of cellulitis placed on Keflex at that time and despite this 3 to 4-day course of antibiotics the swelling has progressively worsened and now pus is draining from the wound prompting ED evaluation to be cautious. He denies any recent fever or chills associated with this and has been able to eat with no nausea or emesis. Patient has no issues swallowing and has had no difficulty breathing since onset. In the ED I D was performed per ED physician with significant submental abscess evident. Workup in the ED included T98.9, heart rate 67, BP 134/88, respiratory rate 14, 98% on room air, CBC with WC 10, human 12.2, MCV 99.2, platelet 151 without marked shift, BMP with BUN/creatinine 23/0.78, GFR 102, glucose 118, CT soft tissue neck with 2.6 cm right submental abscess with bilateral maxillary and ethmoid sinusitis evident. Discussed with ED physician and they will send Wound Cx and MRSA Cx in the ED. Discussed case with ENT Dr. Hall and they recommended IV abx therapy only at this time. In the ED patient administered Unasyn 3 g IV x 1. [facility] Medical History Wears hearing aid Depression Alcohol use Bladder disease History of diverticulitis Former smoker Varicose vein of leg History of stress test History of echocardiogram History of Holter monitoring Cardiology follow-up encounter History of atrial fibrillation Bradycardia Typical atrial flutter Left bundle branch block (LBBB) TIMOTHY (obstructive sleep apnea) BPH (benign prostatic hyperplasia) Back pain Thoracic neuritis Segmental and somatic dysfunction of pelvic region Segmental and somatic dysfunction of lumbar region Segmental and somatic dysfunction of thoracic region Fatigue Chronic systolic (congestive) heart failure Obesity Non-ischemic cardiomyopathy Hyperlipidemia Segmental and somatic dysfunction of thoracic region Acute cervical sprain Segmental and somatic dysfunction of cervical region Osteoarthritis Arthritis Benign essential hypertension Home Medications ???Medication ???Instructions ???Recorded ???Last Taken ???Type pravastatin 40 mg tablet 40 mg PO QHS cholesterol 03/02/18 01/07/22 History tamsulosin 0.4 mg capsule 0.4 mg PO DAILY prostate 03/05/18 01/08/22 History allopurinol 300 mg tablet 300 mg PO DAILY gout 01/05/20 01/08/22 History cholecalciferol (vitamin D3) 125 125 mcg PO DAILY 07/19/20 01/08/22 History mcg (5,000 unit) capsule citalopram 10 mg tablet 10 mg PO DAILY 07/19/20 01/08/22 History lactobacillus combination no.8 3 1 cell PO QHS 11/17/20 01/07/22 History billion cell capsule metronidazole 0.75 % topical gel 1 applic topical DAILY PRN SKIN 02/27/21 Unknown History losartan 50 mg tablet 50 mg PO BID bp #180 tabs 11/01/21 03/19/23 Rx furosemide 40 mg tablet See Rx Instructions .Route 03/17/23 Unknown Rx .COMPLEX #90 tabs apixaban 5 mg tablet (Eliquis) 5 mg PO BID 07/14/23 Unknown History amiodarone 200 mg tablet 100 mg (1/2 x 200 mg) PO DAILY #45 07/24/23 Unknown Rx tabs acetaminophen 650 mg 650 mg PO Q12H PRN fever or pain 03/09/24 Unknown History tablet,extended release (Tylenol Arthritis Pain) metoprolol tartrate 25 mg tablet 25 mg PO BID #180 tabs 05/10/24 Unknown Rx cephalexin 500 mg capsule 500 mg PO Q6 #40 CAPSULES 05/23/24 Unknown Rx Allergy/AdvReac Type Severity Reaction Status Date / Time Sulfa (Sulfonamide Allergy Intermediate Hives Verified 05/26/24 12:57 Antibiotics) Family History (Updated 05/26/24 @ 17:[address] Fabiola Lowery MD) Son Asthma Mother Hypertension HLD (hyperlipidemia) Father , in [place] No problems noted. Surgical History History of urethrotomy ( 03/2023) Hx of arthroscopy of knee Hx of arthroplasty Hx of colonoscopy History of radiofrequency ablation procedure for cardiac arrhythmia (08/03/20) History of cardioversion (03/27/20) History of cataract surgery (more content not included)... Normal [facility] MRSA Wound DNA by PCRon MRSA DNA ASSAY Negative Normal Negative [facility] Comment on above: Order Comment: subme ntal abscess Performed By: #### L 500.2500, L500.3400, L500.4100, L503.6620, L501.9520 #### [facility] [address] [place], [address] SA DNA ASSAY Negative Normal Negative [facility] Comment on above: Order Comment: subme ntal abscess Performed By: #### L 500.2500, L500.3400, L500.4100, L503.6620, L501.9520 #### [facility] [address] [place], [address] Soft Tissue Neck WITH Contra ston 05-26-2024 Soft Tissue Neck WITH Contrast [facility] Imaging Services [address] [place] [address] Soft Tissue Neck WITH Contrast MR#: [id number] Acct: [id number] Name: ANTOINE PEREZ Rep #: [id number] : 1945 M 78 From: Jesse roblero MD PCP: Dr. Avni Walker MD Status: REG ER Study: Soft Tissue Neck WITH Contrast Date of Exam: 0 05/26/24 Exam# [id number] Ordering Dr: [place] [id number] INDICATION: submental abscess. CT BX PERFORMED 05/20/24 . DRAINED AND PACKED IN ER TODAY EXAMINATION: CT Soft Tissue Neck W/ Contrast Injection TECHNIQUE: Helically acquired images were obtained of the neck following IV contrast. A radiation dose optimization technique was used for this scan. IV Contrast dosage and agent: 75 cc [id number] COMPARISON: None. FINDINGS: NASOPHARYNX: Unremarkable. SUPRAHYOID NECK: Unremarkable oropharynx, oral cavity, parapharyngeal space, and retropharyngeal space. INFRAHYOID NECK: There is a 2.6 x 2 x 2.3 cm complex rim-enhancing fluid collection in the subcutaneous tissue of the right submental space. Otherwise Unremarkable larynx, hypopharynx, and supraglottis. THYROID: No focal lesions. SALIVARY GLANDS: Unremarkable. LYMPH NODES: No cervical or supraclavicular lymphadenopathy. VASCULAR STRUCTURES: Unremarkable. VISUALIZED PORTIONS OF THE ORBITS, PARANASAL SINUSES, MASTOID AIR CELLS AND SKULL BASE: Moderate mucosal thickening of the bilateral maxillary sinuses and multiple ethmoid air cells. BONES: Diffuse degenerative changes.. THORACIC INLET: Clear lung apices. CT/Soft Tissue Neck WITH Contrast IMPRESSION: 2.6 cm right submental abscess. Bilateral maxillary and ethmoid sinusitis. Electronically Signed: Jesse Cárdenas MD at 16:53 EST , CC: Dr. Paco Bailey MD; Dr. Avni Walker MD Living Skills Advisor: Signed Normal [facility] Emergency Department Summary on 05-23-2024 Emergency Department Summary [facility] Medical Records Department [address] [place] [address] Emergency Department Summary 05/23/24 MR#: [id number] Acct: [id number] Name: ANTOINE PEREZ Rep #: [id number] : 1945 78 From: Torrey Leal MD PCP: Dr. Avni Walker MD Status:REG ER Location: ED HPI History of Present Illness Chief Complaint: Cellulitis Narrative Narrative: 78-year-old male past medical history of being on Eliquis states that for approximately 20 years he has had a lump or a ball on the right side of his neck. His primary care provider, Dr. Walker, ordered a biopsy which she had performed on , approximately 4 days ago. He states it was CT-guided and done by special procedures here. He does not have the results back as of yet. Over the last few days, he has noticed increased swelling of that area and redness. Today he awoke with a small amount of drainage that was possibly purulent on his shirt. He denies any fevers or chills, no difficulty swallowing, no exacerbating or alleviating factors. His was concerned that this was an abscess that was getting ready to burst. [facility] Medical History Wears hearing aid Depression Alcohol use Bladder disease History of diverticulitis Former smoker Varicose vein of leg History of stress test History of echocardiogram History of Holter monitoring Cardiology follow-up encounter History of atrial fibrillation Bradycardia Typical atrial flutter Left bundle branch block (LBBB) TIMOTHY (obstructive sleep apnea) BPH (benign prostatic hyperplasia) Back pain Thoracic neuritis Segmental and somatic dysfunction of pelvic region Segmental and somatic dysfunction of lumbar region Segmental and somatic dysfunction of thoracic region Fatigue Chronic systolic (congestive) heart failure Obesity Non-ischemic cardiomyopathy Hyperlipidemia Segmental and somatic dysfunction of thoracic region Acute cervical sprain Segmental and somatic dysfunction of cervical region Osteoarthritis Arthritis Benign essential hypertension Home Medications ???Medication ???Instructions ???Recorded ???Last Taken ???Type pravastatin 40 mg tablet 40 mg PO QHS cholesterol 03/02/18 01/07/22 History tamsulosin 0.4 mg capsule 0.4 mg PO DAILY prostate 03/05/18 01/08/22 History allopurinol 300 mg tablet 300 mg PO DAILY gout 01/05/20 01/08/22 History cholecalciferol (vitamin D3) 125 125 mcg PO DAILY 07/19/20 01/08/22 History mcg (5,000 unit) capsule citalopram 10 mg tablet 10 mg PO DAILY 07/19/20 01/08/22 History lactobacillus combination no.8 3 1 cell PO QHS 11/17/20 01/07/22 History billion cell capsule metronidazole 0.75 % topical gel 1 applic topical DAILY PRN SKIN 02/27/21 Unknown History losartan 50 mg tablet 50 mg PO BID bp #180 tabs 11/01/21 03/19/23 Rx furosemide 40 mg tablet See Rx Instructions .Route 03/17/23 Unknown Rx .COMPLEX #90 tabs apixaban 5 mg tablet (Eliquis) 5 mg PO BID 07/14/23 Unknown History amiodarone 200 mg tablet 100 mg (1/2 x 200 mg) PO DAILY #45 07/24/23 Unknown Rx tabs acetaminophen 650 mg 650 mg PO Q12H PRN fever or pain 03/09/24 Unknown History tablet,extended release (Tylenol Arthritis Pain) metoprolol tartrate 25 mg tablet 25 mg PO BID #180 tabs 05/10/24 Unknown Rx cephalexin 500 mg capsule 500 mg PO Q6 #40 CAPSULES 05/23/24 Unknown Rx Allergy/AdvReac Type Severity Reaction Status Date / Time Sulfa (Sulfonamide Allergy Intermediate Hives Verified 05/23/24 21:08 Antibiotics) Family History Son Asthma Surgical History History of urethrotomy ( 03/2023) Hx of arthroscopy of knee Hx of arthroplasty Hx of colonoscopy History of radiofrequency ablation procedure for cardiac arrhythmia (08/03/20) History of cardioversion (03/27/20) History of cataract surgery History of laparoscopic cholecystectomy History of colectomy History of knee surgery Social History Smoking Status: Former smoker how long ago did patient quit smokin years ago alcohol intake: current alcohol intake frequency: a few times a week substance use type: does not use ROS ROS ED ROS Narrative Review of systems positive for redness and increased swelling to biopsy site of right neck. No difficulty swallowing, no fevers or chills, no nausea or vomiting. No exacerbating or alleviating factors. EXAM Physical Exam Narrative Exam Narrative: Afebrile. Vital signs noted. Regular rate and rhythm. Lungs clear to auscultation bilaterally. Focused examination of the neck does show a cellulitic area and a larger indurated area without fluctuance. There is small eschar noted. Airway pat (more content not included)... Normal [facility] Operative Reporton 5 Operative Report [facility] Medical Records Department [address] [place] [address] Operative Report 05/20/24 0956 MR#: [id number] Acct: [id number] Name: ANTOINE PEREZ Rep #: [id number] : 1945 78 From: Linda Perez LAN ENGINEER LAN ENGINEER-C PCP: Dr. Avni Walker MD Status:REG CLI Location: CT Problems Associated Problem List Diagnoses (1) Neck swelling: Procedures Radiology Radiology CT Procedures: 01902 Biopsy Lymph Node/gland/etc Multi Select Codes Radiology Radiology CT Procedures: 09601-86 CT guidance parenchymal tissue Operative Report (Standard) Operative Information Date of Procedure: 05/20/24 Pre-Operative Diagnosis: Neck swelling Post-Operative Diagnosis: Neck swelling Surgery/Procedure Performed: CT-guided biopsy corrugated box machine operator: No Type of Anesthesia: IV Sedation and Local Procedure Start Time: 09:21 Procedure Stop Time: 09:48 Select all DRAINS/GRAFTS/IMPLANTS that apply: None Estimated Blood Loss: 0 Specimen collected: Yes Description of specimen(s) removed: 4 core biopsies and minimal fluid aspirate sent to lab Description of surgery: PROCEDURE: CT GUIDED CORE LYMPH NODE BIOPSY ORDERING PROVIDER: Dr Walker INDICATION: male, 78 years old. neck swelling PROVIDER: Linda Perez CNP CONSENT: Written informed consent was obtained having explained the risks, benefits and alternatives in detail with the patient who accepted the risks and agreed to proceed. Laboratory review and clinical assessment was performed. PRE-PROCEDURE SEDATION ASSESSMENT: Current history and physical dictated by referring physician and reviewed. No clinical changes since date of exam. Patient has a Mallampati Score of Class 3 and ASA Class of 2. PROCEDURAL SEDATION PROTOCOL: The Drugs used were: 2 mg Versed, IV, and 100 mcg Fentanyl, IV. The sedation time was: starting at 0921 and terminated at 0948. The procedural sedation protocol was independently monitored by the department nurse. RADIATION DOSAGE (If Supplied By Facility): CTDIvol = 16.14 mGy, DLP = 264.63 mGycm Individualized dose optimization techniques were used for this CT. TECHNIQUE The patient was placed in a supine position. A noncontrast CT was performed to localize the lesion in the right neck. The skin surface was prepped with chlorhexidine and draped in a sterile fashion. 2% lidocaine was used for local anesthesia. Using CT guidance, a 18-gauge coaxial biopsy device was advanced to the periphery of the lesion. A total of 4 core specimens were obtained. Specimens were microscopically reviewed by pathology in the CT suite and placed in formalin solution, as well as RPMI. The biopsy needle was removed and a sterile dressing was applied to the biopsy site. The patient tolerated the procedure well without adverse event. A negative biopsy does not exclude malignancy. Further imaging or clinical followup based on patient condition and degree of clinical suspicion for malignancy. Suggest rebiopsy, if biopsy results do not match with clinical scenario. IMPRESSION: CT directed core needle biopsy of the right neck using CT image guidance with image documentation as described. Pathology results are pending. Procedural Sedation protocol utilized with independent monitoring by the department nurse. Surgical Findings: none Complications Complications: No 05/20/24 1009 Cosigner Signature (if applicable): CC: ROSETTA Perez; Dr. Avni Walker MD; Sharri Cisneros Signed Normal [facility] Partial Thromboplast Timeon 05-20-2024 aPTT Coag (Bld) [Time] 33.6 s Normal 24.1-36.[address] [facility] Comment on above: Performed By: #### L 501.1400, L501.9520, L500.4050, L506.1000, L100.0100 #### [facility] [address] [place], [address] Platelet Counton 05-20-2024 Platelets (Bld) [#/Vol] 149 10*3/uL Low 150-450 [facility] Comment on above: Performed By: #### L 501.1400, L501.9520, L500.4050, L506.1000, L100.0100 #### [facility] [address] [place], [address] Prothrombin Time w/INRon INR Coag (PPP) [Relative time] 1.0 {INR} Normal [facility] Comment on above: Performed By: #### L 501.1400, L501.9520, L500.4050, L506.1000, L100.0100 #### [facility] [address] [place], [address] PT Coag (PPP) [Time] 13.7 s Normal 11.7-14.9 [facility] Comment on above: Performed By: #### L 501.1400, L501.9520, L500.4050, L506.1000, L100.0100 #### [facility] [address] [place], [address] Special Stain Group IIon Special Stain Group II ------ Patient Age/Sex Location Account Attending Physician ANTOINE PEREZ 78/M CT [id number] Dr. Avni Walker MD Specimen: [id number] Received: 05/20/24 Status: KAYLENE Hernandez Num: [id number] Spec Type: ASP RAD Subm Dr: Dr. Avni Walker MD HEADER OPERATION: CT guided right neck mass biopsy PRE-OP DIAGNOSIS: Right lateral neck mass TISSUE SUBMITTED: 18 gauge x 5 cores MICROSCOPIC DIAGNOSIS Right lateral neck, core biopsy: Negative for malignant cells. See comment. SJ.mr 05/21/2024 COMMENT The specimen is evaluated at the time of biopsy by Dr. Joe. Immediate Evaluation = Negative for malignant cells. Acellular specimen. Reported to Ms. Fitzpatrick at 9:57am on 05/20/2024. The specimen is acellular. Re-biopsy of the lesion is suggested, if clinically indicated. Correlation with clinical findings and appropriate follow up are necessary. MICROSCOPIC DESCRIPTION Slides are reviewed. GROSS DESCRIPTION Received is one container labeled with the patient's name and not further designated. The specimen consists of fragments of gonzalez-brown material. The specimen is submitted entirely for cell block preparation. Two touch imprints are prepared at the time of core biopsy. SJ. 05/20/2024 TC: Cannot code CPT:30483,61935 Patient Age/Sex Location Account Attending Physician ANTOINE PEREZ 78/M CT [id number] Dr. Avni Walker MD ADDENDUM Addendum 1 Entered: 05/25/24-1254 Portion of the specimen is saved for flow cytometry study and is submitted in cassette 2 and shows skin with dermal chronic inflammation. SJ. 05/25/2024 Addendum Signed (signature on file) Dr. Gennaro Joe MD 05/25/24 1258 Patient Age/Sex Location Account Attending Physician ANAANTOINE SOCRATES 78/M CT [id number] Dr. Avni Walker MD Signed (signature on file) Dr. Gennaro Joe MD 05/21/24 1131 Normal [facility] Comment on above: Performed By: #### L 500.2500, L500.3400, L500.4100, L503.6620, L501.9520 #### [facility] [place], [address] Special Stain Group II ------ Patient Age/Sex Location Account Attending Physician PEREZANTOINE Taveras SOCRATES 78/M CT [id number] Dr. Avni Walker MD Specimen: [id number] Received: 05/20/24 Status: KAYLENE Hernandez Num: [id number] Spec Type: Fluid Subm Dr: Dr. Avin Walker MD HEADER OPERATION:CT guided right neck mass biopsy PRE-OP DIAGNOSIS: Right lateral neck mass TISSUE SUBMITTED: 18 gauge x 5 cores DIAGNOSIS CYTOLOGY Right lateral neck mass, fine needle aspiration (cytopsins and cellblock): Bloody specimen, negative for malignant cells. See comment. mr 05/21/2024 COMMENT Re-biopsy of the lesion is suggested, if clinically indicated. Please also make reference to additional specimen [id number]. Correlation with clinical, radilogic findings and appropriate follow up are necessary CYTOLOGY STUDY Slides are reviewed. CYTOLOGY GROSS Received is 0.2 ml of red cloudy fluid labeled with the patient's name and and designated per the requisition as "Neck mass biopsy." Submitted for cytology preparation including cell block. Mr 05/20/2024 TC: Can not code CPT: 31471,48123 Signed (signature on file) Dr. Gennaro Joe MD 05/21/24 1134 Normal [facility] Comment on above: Performed By: #### L 500.2500, L500.3400, L500.4100, L503.6620, L501.9520 #### [facility] [address] [place], [place], [address] Orbit Face Neck W/WO Contras ton 04-13-2024 Orbit Face Neck W/WO Contrast [facility] Imaging Services [address] [place] [address] Orbit Face Neck W/WO Contrast MR#: [id number] Acct: [id number] Name: ANTOINE PEREZ Rep #: [id number] : 1945 M 78 From: Aries Donis MD PCP: Dr. Avni Walker MD Status: REG CLI Study: Orbit Face Neck W/WO Contrast Date of Exam: Exam# [id number] Ordering [place]: [place] [id number] STUDY: MRI ORBITS WITH AND WITHOUT CONTRAST REASON FOR EXAM: Male, 78 years old. submandibular lymphadenopathy, SOFT TISSUE MASS X2OYRS RECENTLY STARTED GROWING, MASS MARKED WITH BB TECHNIQUE: Standardized fat and water weighted pulse sequences were obtained in all 3 orthogonal planes, pre-and post contrast administration. IV 20ML CLARISCAN was administered for the contrast portion of the examination. COMPARISON: None. FINDINGS: Normal bilateral globes. Normal bilateral optic nerve sheath complexes and optic nerves. Normal bilateral intraconal and extraconal spaces. Normal bilateral extraocular muscles. Normal optic chiasm and post-chiasmatic tracts. Normal sella turcica, pituitary gland, infundibular stalk, and hypothalamus. Normal bilateral cavernous sinuses. Normal tectal plate and pineal gland. Normal flow voids within the major intracranial circulation suggesting patency by spin echo criteria. Normal size of the ventricles and extra-axial spaces for the patient''s age. Normal white matter tracts of the supratentorial brain. Normal bilateral basal ganglia. Normal thalami. There is no extra-axial fluid accumulation. Normal midbrain, brittaney and medulla. Normal cerebellum. Normal basal cisterns. At the site of the clinically palpable mass, there is a rounded mass density measuring 2.4 x 2.8 x 2.25 cm in the subcutaneous fat just lateral to the platysma demonstrating intermediate signal intensity on T1 similar to that a normal muscle, heterogeneous intermediate and high signal on T2 as well as the STIR imaging sequence and does not enhance following contrast administration MRI/Orbit Face Neck W/WO Contrast IMPRESSION: Nonspecific nonenhancing solid nodule in the subcutaneous fat of the right lateral neck without evidence for enhancement of uncertain etiology. No evidence, adenopathy or other significant abnormality.. Sonographic or CT guided biopsy would be helpful for further evaluation Electronically Signed: Aries Donis MD at 16:30 EST , CC: Dr. Avni Walker MD Living Skills Advisor: Signed Normal [facility] Abdomen Limitedon 03-19-2024 Abdomen Limited [facility] Imaging Services [address] [place] [address] Abdomen Limited MR#: [id number] Acct: [id number] Name: ANTOINE PEREZ Rep #: [id number] : 1945 M 78 From: Maxx mims MD PCP: Dr. Avni Walker MD Status: REG CLI Study: Abdomen Limited Date of Exam: 03/19/24 Exam# [id number] Ordering [place]: [place] [id number] INDICATION: LIPOMA, LEFT LOWER BACK EXAMINATION: Ultrasound US Soft Tissue Back TECHNIQUE: Juan scale and color doppler imaging was performed of the left lower back. COMPARISON: No relevant prior comparison study available FINDINGS: LIVER: Targeted sonographic evaluation of the region of concern shows a well-circumscribed isoechoic mass which is wider than tall. This measures 11.3 x 7 x 3.8 cm. Minimal internal Doppler vascularity. US/Abdomen Limited IMPRESSION: Nonaggressive appearing mass in the region of concern, consistent with a lipoma. Electronically Signed: Maxx James MD at 1:33 EDT Reading Location ID and State: [address] [place] [address] Tel , Service support , CC: Dr. Avni Walker MD Living Skills Advisor: Signed Normal [facility] CBC W/Diff, Automatedon 10-2 Absolute Lymph 1.90 X10 3/uL Normal 0.83-4.51 [facility] Comment on above: Performed By: #### L 501.1400, L501.9520, L500.4050, L506.1000, L100.0100 #### [facility] [address] [place], [address] Absolute Neut 5.8 X10 3/uL Normal 2.0-7.7 [facility] Comment on above: Performed By: #### L 501.1400, L501.9520, L500.4050, L506.1000, L100.0100 #### [facility] [address] [place], [address] Basophils/100 WBC (Bld) 0.3 % Normal 0-1 [facility] Comment on above: Performed By: #### L 501.1400, L501.9520, L500.4050, L506.1000, L100.0100 #### [facility] [address] [place], [address] Eosinophils/100 WBC (Bld) 3.3 % Normal 0-5 [facility] Comment on above: Performed By: #### L 501.1400, L501.9520, L500.4050, L506.1000, L100.0100 #### [facility] [address] [place], [address] Erythrocyte distribution width (RBC) [Ratio] 13.5 % Normal 11.6-14.6 [facility] Comment on above: Performed By: #### L 501.1400, L501.9520, L500.4050, L506.1000, L100.0100 #### [facility] [address] [place], [address] Hematocrit (Bld) [Volume fraction] 39.2 % Low 40-54 [facility] Comment on above: Performed By: #### L 501.1400, L501.9520, L500.4050, L506.1000, L100.0100 #### [facility] [address] [place], [address] Hemoglobin (Bld) [Mass/Vol] 12.8 g/dL Low 13.0-16.5 [facility] Comment on above: Performed By: #### L 501.1400, L501.9520, L500.4050, L506.1000, L100.0100 #### [facility] [address] [place], [address] IG% 1.000 High 0.0-0.9 [facility] Comment on above: Result Comment: IG% - Immature Granulocytes (promyelocytes, myelocytes and metamyelocytes) > 1% indicates that a LEFT SHIFT is Present. Performed By: #### L 501.1400, L501.9520, L500.4050, L506.1000, L100.0100 #### [facility] [address] [place], [address] Lymphocytes/100 WBC (Bld) 21.4 % Normal 19-41 [facility] Comment on above: Performed By: #### L 501.1400, L501.9520, L500.4050, L506.1000, L100.0100 #### [facility] [address] [place], [address] MCH (RBC) [Entitic mass] 33.1 pg High 27.0-32.0 [facility] Comment on above: Performed By: #### L 501.1400, L501.9520, L500.4050, L506.1000, L100.0100 #### [facility] [address] [place], [address] MCHC (RBC) [Mass/Vol] 32.7 g/dL Normal 32-36 [facility] Comment on above: Performed By: #### L 501.1400, L501.9520, L500.4050, L506.1000, L100.0100 #### [facility] [address] [place], [address] MCV (RBC) [Entitic vol] 101.3 fL High 80-94 [facility] Comment on above: Performed By: #### L 501.1400, L501.9520, L500.4050, L506.1000, L100.0100 #### [facility] [address] [place], [address] Monocytes/100 WBC (Bld) 9.0 % Normal 0-10 [facility] Comment on above: Performed By: #### L 501.1400, L501.9520, L500.4050, L506.1000, L100.0100 #### [facility] [address] [place], [address] Neutrophils/100 WBC (Bld) 65.0 % Normal 47-70 [facility] Comment on above: Performed By: #### L 501.1400, L501.9520, L500.4050, L506.1000, L100.0100 #### [facility] [address] [place], [address] Nucleated RBC (Bld) [#/Vol] 0 10*3/uL Normal 0-5 [facility] Comment on above: Performed By: #### L 501.1400, L501.9520, L500.4050, L506.1000, L100.0100 #### [facility] [address] [place], [address] Platelet mean volume (Bld) [Entitic vol] 13.1 fL High 6.2-12.0 [facility] Comment on above: Performed By: #### L 501.1400, L501.9520, L500.4050, L506.1000, L100.0100 #### [facility] [address] [place], [address] Platelets (Bld) [#/Vol] 161 10*3/uL Normal 150-450 [facility] Comment on above: Performed By: #### L 501.1400, L501.9520, L500.4050, L506.1000, L100.0100 #### [facility] [address] [place], [address] RBC (Bld) [#/Vol] 3.87 10*6/uL Low 4.6-6.2 [facility] Comment on above: Performed By: #### L 501.1400, L501.9520, L500.4050, L506.1000, L100.0100 #### [facility] [address] [place], [address] RDW SD 50.7 fl High 35.1-43.9 [facility] Comment on above: Performed By: #### L 501.1400, L501.9520, L500.4050, L506.1000, L100.0100 #### [facility] [address] [place], [address] WBC (Bld) [#/Vol] 8.9 10*3/uL Normal 4.4-11.0 [facility] Comment on above: Performed By: #### L 501.1400, L501.9520, L500.4050, L506.1000, L100.0100 #### [facility] [address] [place], [address] [facility] 03-15-2024 Albumin [Mass/Vol] 3.8 g/dL Normal 3.2-5.0 [facility] Comment on above: Performed By: #### L 501.1400, L501.9520, L500.4050, L506.1000, L100.0100 #### [facility] [address] [place], [address] Albumin/Globulin [Mass ratio] 1.0 {ratio} Normal 0.9-2.4 [facility] Comment on above: Performed By: #### L 501.1400, L501.9520, L500.4050, L506.1000, L100.0100 #### [facility] [address] [place], [address] ALK P 80 U/L Normal 45-117 [facility] Comment on above: Performed By: #### L 501.1400, L501.9520, L500.4050, L506.1000, L100.0100 #### [facility] [address] [place], [address] ALT [Catalytic activity/Vol] 29 U/L Normal 16-61 [facility] Comment on above: Performed By: #### L 501.1400, L501.9520, L500.4050, L506.1000, L100.0100 #### [facility] [address] [place], [address] AST [Catalytic activity/Vol] 17 U/L Normal 15-37 [facility] Comment on above: Performed By: #### L 501.1400, L501.9520, L500.4050, L506.1000, L100.0100 #### [facility] [address] [place], [address] Bilirubin [Mass/Vol] 0.40 mg/dL Normal 0.20-1.00 [facility] Comment on above: Result Comment: For patients on eltrombopag therapy, use of Dimension [place] TBIL is not recommended. Performed By: #### L 501.1400, L501.9520, L500.4050, L506.1000, L100.0100 #### [facility] [address] [place], [address] BUN/CRE 27.3 RATIO High 10-20 [facility] Comment on above: Performed By: #### L 501.1400, L501.9520, L500.4050, L506.1000, L100.0100 #### [facility] [address] [place], [address] CA,Total 9.3 mg/dL Normal 8.5-10.1 [facility] Comment on above: Performed By: #### L 501.1400, L501.9520, L500.4050, L506.1000, L100.0100 #### [facility] [address] [place], [address] Chloride [Moles/Vol] 105 mmol/L Normal 98-107 [facility] Comment on above: Performed By: #### L 501.1400, L501.9520, L500.4050, L506.1000, L100.0100 #### [facility] [address] [place], [address] CO2 [Moles/Vol] 29.0 mmol/L Normal 21.0-32.0 [facility] Comment on above: Performed By: #### L 501.1400, L501.9520, L500.4050, L506.1000, L100.0100 #### [facility] [address] [place], [address] Creatinine [Mass/Vol] 0.77 mg/dL Normal 0.70-1.30 [facility] Comment on above: Result Comment: The validity of the calculated GFR GFRAA in patients over 70 years has not been determined. Clinical correlation is essential. Performed By: #### L 501.1400, L501.9520, L500.4050, L506.1000, L100.0100 #### [facility] [address] [place], [address] EST GFR - AA 125 mL/min Normal >60 [facility] Comment on above: Result Comment: Afri can [place] GFR Calc Performed By: #### L 501.1400, L501.9520, L500.4050, L506.1000, L100.0100 #### [facility] [address] [place], [address] GAP 8 Normal 5-15 [facility] Comment on above: Performed By: #### L 501.1400, L501.9520, L500.4050, L506.1000, L100.0100 #### [facility] [address] [place], [address] GFR/1.73 sq M.predicted among non-blacks MDRD (S/P/Bld) [Vol rate/Area] 104 mL/min/{1.73_m2} Normal >60 [facility] Comment on above: Result Comment: Non- GFR Calc Performed By: #### L 501.1400, L501.9520, L500.4050, L506.1000, L100.0100 #### [facility] [address] [place], [address] Globulin (S) [Mass/Vol] 3.7 g/dL Normal 2.2-4.2 [facility] Comment on above: Performed By: #### L 501.1400, L501.9520, L500.4050, L506.1000, L100.0100 #### [facility] [address] [place], [address] Glucose [Mass/Vol] 87 mg/dL Normal 74-106 [facility] Comment on above: Performed By: #### L 501.1400, L501.9520, L500.4050, L506.1000, L100.0100 #### [facility] [address] [place], [address] Potassium [Moles/Vol] 4.1 mmol/L Normal 3.5-5.1 [facility] Comment on above: Performed By: #### L 501.1400, L501.9520, L500.4050, L506.1000, L100.0100 #### [facility] [address] [place], [address] Sodium [Moles/Vol] 142 mmol/L Normal 136-145 [facility] Comment on above: Performed By: #### L 501.1400, L501.9520, L500.4050, L506.1000, L100.0100 #### [facility] [address] [place], [address] T PROT 7.5 g/dL Normal 6.4-8.2 [facility] Comment on above: Performed By: #### L 501.1400, L501.9520, L500.4050, L506.1000, L100.0100 #### [facility] [address] [place], [address] Urea nitrogen [Mass/Vol] 21 mg/dL High 7-18 [facility] Comment on above: Performed By: #### L 501.1400, L501.9520, L500.4050, L506.1000, L100.0100 #### [facility] [address] [place], [address] Thyroid Stim Hormone (TSH)on 03-15-2024 TSH 0.955 uIU/mL Normal 0.358-3.740 [facility] Comment on above: Performed By: #### L 501.1400, L501.9520, L500.4050, L506.1000, L100.0100 #### [facility] [address] [place], [address] Uric Acidon 03-15-2024 URIC 4.9 mg/dL Normal 3.5-7.2 [facility] Comment on above: Result Comment: The drugs N-Acetylcysteine and Metamizole may falsely depress this assay. Performed By: #### L 501.1400, L501.9520, L500.4050, L506.1000, L100.0100 #### [facility] [address] [place], [address] Vitamin D,25 Hydroxyon 03-15 Vitamin D 25-OH 47.9 ng/mL Normal [facility] Comment on above: Result Comment: Lizz min D 25(OH) Status Range Deficiency <20 ng/mL (50nmol/L) Insufficiency 20 - 30 ng/mL (50 - 75 nmol/L) Sufficiency 30 - 100 ng/mL (75 - 250 nmol/L) Toxicity >100 ng/mL (>250 nmol/L) Performed By: #### L 501.1400, L501.9520, L500.4050, L506.1000, L100.0100 #### [facility] [address] [place], [address] BNP,B-Type NATRIURETIC PEPTI Frankie 03-09-2024 Natriuretic peptide B (Bld) [Mass/Vol] 44.8 pg/mL Normal 0-100 [facility] Comment on above: Performed By: #### L 500.2500, L500.3400, L500.4100, L503.6620, L501.9520 #### [facility] [address] [place], [address] Basic Metabolic Profile (BMP )on 03-09-2024 BUN/CRE 33.7 RATIO High 10-20 [facility] Comment on above: Performed By: #### L 500.2500, L500.3400, L500.4100, L503.6620, L501.9520 #### [facility] [address] [place], [address] CA,Total 9.4 mg/dL Normal 8.5-10.1 [facility] Comment on above: Performed By: #### L 500.2500, L500.3400, L500.4100, L503.6620, L501.9520 #### [facility] [address] [place], [address] Chloride [Moles/Vol] 106 mmol/L Normal 98-107 [facility] Comment on above: Performed By: #### L 500.2500, L500.3400, L500.4100, L503.6620, L501.9520 #### [facility] [address] [place], [address] CO2 [Moles/Vol] 29.0 mmol/L Normal 21.0-32.0 [facility] Comment on above: Performed By: #### L 500.2500, L500.3400, L500.4100, L503.6620, L501.9520 #### [facility] [address] [place], [address] Creatinine [Mass/Vol] 0.86 mg/dL Normal 0.70-1.30 [facility] Comment on above: Result Comment: The validity of the calculated GFR GFRAA in patients over 70 years has not been determined. Clinical correlation is essential. Performed By: #### L 500.2500, L500.3400, L500.4100, L503.6620, L501.9520 #### [facility] [address] [place], [address] EST GFR - AA 110 mL/min Normal >60 [facility] Comment on above: Result Comment: Afri can [place] GFR Calc Performed By: #### L 500.2500, L500.3400, L500.4100, L503.6620, L501.9520 #### [facility] [address] [place], [address] GAP 6 Normal 5-15 [facility] Comment on above: Performed By: #### L 500.2500, L500.3400, L500.4100, L503.6620, L501.9520 #### [facility] [address] [place], [address] GFR/1.73 sq M.predicted among non-blacks MDRD (S/P/Bld) [Vol rate/Area] 91 mL/min/{1.73_m2} Normal >60 [facility] Comment on above: Result Comment: Non- GFR Calc Performed By: #### L 500.2500, L500.3400, L500.4100, L503.6620, L501.9520 #### [facility] [address] [place], [address] Glucose [Mass/Vol] 94 mg/dL Normal 74-106 [facility] Comment on above: Performed By: #### L 500.2500, L500.3400, L500.4100, L503.6620, L501.9520 #### [facility] [address] [place], [address] Potassium [Moles/Vol] 4.0 mmol/L Normal 3.5-5.1 [facility] Comment on above: Performed By: #### L 500.2500, L500.3400, L500.4100, L503.6620, L501.9520 #### [facility] [address] [place], [address] Sodium [Moles/Vol] 140 mmol/L Normal 136-145 [facility] Comment on above: Performed By: #### L 500.2500, L500.3400, L500.4100, L503.6620, L501.9520 #### [facility] [address] [place], [address] Urea nitrogen [Mass/Vol] 29 mg/dL High 7-18 [facility] Comment on above: Performed By: #### L 500.2500, L500.3400, L500.4100, L503.6620, L501.9520 #### [facility] [address] [place], [address] Cardiology Visit Reporton Cardiology Visit Report [facility] [address] [place] [address] OFFICE VISIT Date of Service: 03/09/24 MR#: [id number] Acct: [id number] Name: ANTOINE PEREZ Rep #: [id number] : 1945 Provider: Dr. Sai Murphy MD Age/Sex: 78/M Location: [facility] Status: Signed HPI HPI History of Present Illness Details: This is a 78-year-old gentleman that presents here today for a cardiovascular follow-up. Patient was admitted to [facility] on January 05, 2020 where he was noted to be in 2-1 atrial flutter. Patient was started on an anticoagulant and rate limiting medications. During his evaluation it was noted that his ejection fraction was 40%. There was question if this could be related to his atrial flutter. Pt underwent a cardioversion on 02/01/2020, unfortunately he did not maintain SR. Amiodarone was added. He did undergo a second cardioversion in March but he is back in atrial flutter. He feels fatigued but he has denied any chest pain he does have minimal shortness of breath. He was admitted to the hospital in April of 2020 he ruled out for myocardial infarction, he had a stress test which did not demonstrate any evidence of ischemia. There was a question as to whether he should have a cardiac catheterization but this was deferred on the basis of his stress test. He also had a sleep study which demonstrated mild obstructive sleep apnea. He was referred to [facility] for an atrial flutter ablation which he underwent in July of 2020. His last echocardiogram from March 2021 demonstrated an ejection fraction of 55% PASP of 40 mmHg. There is a marked improvement from before. He acknowledges bilateral lower extremity edema. He states shortness of breath activity such as going up stairs carrying laundry for multiple flights. This is not new or worsening. He denies shortness of breath when walking the dog, He denies claudication, shortness of breath at rest, orthopnea, cough, or PND. He denies lightheadedness, dizziness, near-syncope, or syncope. He denies fatigue or weakness. 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: No Accompanied by: Self Is patient in pain?: No Allergies Sulfa (Sulfonamide Antibiotics) Allergy (Intermediate, Verified 03/09/24 13:02) Hives Medications ???Medication ???Instructions ???Recorded ???Confirmed ???Type pravastatin 40 mg tablet 40 mg PO QHS cholesterol 03/02/18 03/09/24 History tamsulosin 0.4 mg capsule 0.4 mg PO DAILY prostate 03/05/18 03/09/24 History allopurinol 300 mg tablet 300 mg PO DAILY gout 01/05/20 03/09/24 History cholecalciferol (vitamin D3) 125 125 mcg PO DAILY 07/19/20 03/09/24 History mcg (5,000 unit) capsule citalopram 10 mg tablet 10 mg PO DAILY 07/19/20 03/09/24 History lactobacillus combination no.8 3 1 cell PO QHS 11/17/20 03/09/24 History billion cell capsule metronidazole 0.75 % topical gel 1 applic topical DAILY PRN SKIN 02/27/21 03/09/24 History losartan 50 mg tablet 50 mg PO BID bp #180 tabs 11/01/21 03/09/24 Rx furosemide 40 mg tablet See Rx Instructions .Route 03/17/23 03/09/24 Rx .COMPLEX #90 tabs metoprolol tartrate 25 mg tablet 25 mg PO BID #180 tabs 05/20/23 03/09/24 Rx apixaban 5 mg tablet (Eliquis) 5 mg PO BID 07/14/23 03/09/24 History amiodarone 200 mg tablet 100 mg (1/2 x 200 mg) PO DAILY #45 07/24/23 03/09/24 Rx tabs acetaminophen 650 mg 650 mg PO Q12H PRN 03/09/24 03/09/24 History tablet,extended release (Tylenol Arthritis Pain) Have you fallen in the past year?: No PFSH Medical History Wears hearing aid Depression Alcohol use Bladder disease History of diverticulitis Former smoker Varicose vein of leg History of stress test History of echocardiogram History of Holter monitoring Cardiology follow-up encounter History of atrial fibrillation Bradycardia Typical atrial flutter Left bundle branch block (LBBB) TIMOTHY (obstructive sleep apnea) BPH (benign prostatic hyperplasia) Back pain Thoracic neuritis Segmental and somatic dysfunction of pelvic region Segmental and somatic dysfunction of lumbar region Segmental and somatic dysfunction of thoracic region Fatigue Chronic systolic (congestive) heart failure Obesity Non-ischemic cardiomyopathy Hyperlipidemia Segmental and somatic dysfunction of thoracic region Acute cervical sprain Segmental and somatic dysfunction of cervical region Osteoarthritis Arthritis Benign essential hypertension Surgical History (Rev (more content not included)... Normal [facility] Chest PA and Lateralon 03-09 Chest PA and Lateral [facility] [address] [place], [place] [address] Chest PA and Lateral MR#: [id number] Acct: [id number] Name: ANTOINE PEREZ Rep #: [id number] : 1945 M 78 From: Fredy Peres MD PCP: Dr. Avni Walker MD Status: REG CLI Study: Chest PA and Lateral Date of Exam: 03/09/24 Exam# [id number] Ordering Dr: [place] [id number] STUDY: X-RAY CHEST REASON FOR EXAM: Male, 78 years old. sob TECHNIQUE: PA and lateral views of the chest. COMPARISON: 06/02/2020 FINDINGS: The lungs are clear and expanded. There is no demonstrated pleural abnormality. Normal size heart. Normal mediastinum and preethi. Normal visualized pulmonary arteries. Normal visualized aortic arch and descending thoracic aorta. Normal visualized thoracic spine. Normal visualized ribs, clavicles, and shoulders. There is no demonstrated abnormality of the visualized soft tissue structures of the upper abdomen. RAD/Chest PA and Lateral IMPRESSION: Normal x-ray examination of the chest. Electronically Signed: Fredy Peres MD at 11:28 EDT , CC: Dr. Sai Murphy MD; Dr. Avni Walker MD Living Skills Advisor: Signed Normal [facility] Lipid Profileon 03-09-2024 Cholesterol [Mass/Vol] 154 mg/dL Normal [address] [facility] Comment on above: Result Comment: <200 mg/dL Desirable 200-240 mg/dL Borderline >240 mg/dL High Risk Performed By: #### L 500.2500, L500.3400, L500.4100, L503.6620, L501.9520 #### [facility] [address] [place], [address] Cholesterol in HDL [Mass/Vol] 57 mg/dL Normal [facility] Comment on above: Result Comment: The drugs N-Acetylcysteine and Metamizole may falsely depress this assay. Reference Range HDL <40 mg/dL Low HDL Cholesterol HDL >or= 60 mg/dL High HDL Cholesterol Performed By: #### L 500.2500, L500.3400, L500.4100, L503.6620, L501.9520 #### [facility] [address] [place], [address] Cholesterol in LDL [Mass/Vol] 70 mg/dL Normal 0-130 [facility] Comment on above: Performed By: #### L 500.2500, L500.3400, L500.4100, L503.6620, L501.9520 #### [facility] [address] [place], [address] Cholesterol in VLDL [Mass/Vol] 27 mg/dL Normal 5-40 [facility] Comment on above: Performed By: #### L 500.2500, L500.3400, L500.4100, L503.6620, L501.9520 #### [facility] [address] [place], [address] Triglyceride [Mass/Vol] 133 mg/dL Normal [facility] Comment on above: Result Comment: The drugs N-Acetylcysteine and Metamizole may falsely depress this assay. Serum Triglycerides Reference Interval Normal <150 mg/dL Borderline high 150 - 199 mg/dL High 200 - 499 mg/dL Very High > or = 500 mg/dL Performed By: #### L 500.2500, L500.3400, L500.4100, L503.6620, L501.9520 #### [facility] [address] [place], [address] Liver Profileon 03-09-2024 Albumin [Mass/Vol] 3.8 g/dL Normal 3.2-5.0 [facility] Comment on above: Performed By: #### L 500.2500, L500.3400, L500.4100, L503.6620, L501.9520 #### [facility] [address] [place], [address] ALK P 87 U/L Normal 45-117 [facility] Comment on above: Performed By: #### L 500.2500, L500.3400, L500.4100, L503.6620, L501.9520 #### [facility] [address] [place], [address] ALT [Catalytic activity/Vol] 25 U/L Normal 16-61 [facility] Comment on above: Performed By: #### L 500.2500, L500.3400, L500.4100, L503.6620, L501.9520 #### [facility] [address] [place], [address] AST [Catalytic activity/Vol] 14 U/L Low 15-37 [facility] Comment on above: Performed By: #### L 500.2500, L500.3400, L500.4100, L503.6620, L501.9520 #### [facility] [address] [place], [address] Bilirubin [Mass/Vol] 0.60 mg/dL Normal 0.20-1.00 [facility] Comment on above: Result Comment: For patients on eltrombopag therapy, use of Dimension [place] TBIL is not recommended. Performed By: #### L 500.2500, L500.3400, L500.4100, L503.6620, L501.9520 #### [facility] [address] [place], [address] Bilirubin.direct [Mass/Vol] 0.20 mg/dL Normal 0.00-0.30 [facility] Comment on above: Performed By: #### L 500.2500, L500.3400, L500.4100, L503.6620, L501.9520 #### [facility] [address] [place], [address] Globulin (S) [Mass/Vol] 3.6 g/dL Normal 2.2-4.2 [facility] Comment on above: Performed By: #### L 500.2500, L500.3400, L500.4100, L503.6620, L501.9520 #### [facility] [address] [place], [address] T PROT 7.4 g/dL Normal 6.4-8.2 [facility] Comment on above: Performed By: #### L 500.2500, L500.3400, L500.4100, L503.6620, L501.9520 #### [facility] [address] [place], [address] Thyroid Stim Hormone (TSH)on 03-09-2024 TSH 0.717 uIU/mL Normal 0.358-3.740 [facility] Comment on above: Performed By: #### L 500.2500, L500.3400, L500.4100, L503.6620, L501.9520 #### [facility] [address] [place], [address] PSA,Total - Annual Screenon 11-25-2023 PSA,TOT SCREEN 2.82 ng/mL Normal 0.00-4.00 [facility] Comment on above: Result Comment: This test was performed using the TPSA assay method for the [employer] chemistry system. Values obtained with different assay methods cannot be used interchangably. When changing PSA assays in the course of monitoring a patient, additional sequential testing should be carried out to confirm baseline values. Performed By: #### L 500.2500, L500.3400, L500.4100, L503.6620, L501.9520 #### [facility] [address] [place], [address] Basophil percentageOrdered B y: Avni Walker on 09-17-2023 Chloride [Moles/Vol] 108 mmol/L 98-107 [facility] Glucose [Mass/Vol] 95 mg/dL 74-106 [facility] Potassium [Moles/Vol] 4.3 mmol/L 3.5-5.1 [facility] Sodium [Moles/Vol] 140 mmol/L 136-145 [facility] - Chemistry and C hemistry - challengeOrdered By: Avni Walker on 09-17-2023 CO2 [Moles/Vol] 27.0 mmol/L 21.0-32.0 [facility] Urea nitrogen/Creatinine [Mass ratio] 33.6 mg/mg 10-20 [facility] No Panel InformationOrdered By: Avni Walker on 09-17-2023 Estimated GFR (MDRD) Amer 137 mL/min >60 [facility] Comment on above: GFR Calc Estimated GFR (MDRD) Non-Af Amer 113 mL/min >60 [facility] Comment on above: Non- GFR Calc Serum or plasma calcium brittnee urement (mass/volume)Ordered By: Avni Walker on 09-17-2023 Calcium [Mass/Vol] 9.1 mg/dL 8.5-10.1 [facility] Serum or plasma creatinine m easurement (mass/volume)Ordered By: vAni Walker on 09-17-2023 Creatinine [Mass/Vol] 0.71 mg/dL 0.70-1.30 [facility] Comment on above: The validity of the calculated GFR & GFRAA in patients over 70 years has not been determined. Clinical correlation is essential. Serum or plasma urea nitroge n measurement (mass/volume)Ordered By: Avni Walker on 09-17-2023 Urea nitrogen [Mass/Vol] 24 mg/dL 7-18 [facility] Thin prep Papanicolaou smear with manual screeningOrdered By: Avni Walker on 09-17-2023 Thin prep Papanicolaou smear with manual screening 5 5-15 [facility] Absolute lymphocyte countOrd ered By: Avni Walker on 09-09-2023 Lymphocytes Auto (Unsp spec) [#/Vol] 1.41 10*3/uL 0.83-4.51 [facility] Automated lymphocyte count a s percentage of total leukocytesOrdered By: Avni Walker on 09-09-2023 Lymphocytes/100 WBC Auto (Unsp spec) 24.4 % 19-41 [facility] Basophil percentageOrdered B y: Avni Walker on 09-09-2023 Basophils/100 WBC (Bld) 0.3 % 0-1 [facility] Bilirubin [Mass/Vol] 0.60 mg/dL 0.20-1.00 [facility] Comment on above: For patients on eltr ombopag therapy, use of Dimension [place] TBIL is not recommended. Chloride [Moles/Vol] 103 mmol/L 98-107 [facility] Eosinophils/100 WBC (Bld) 3.3 % 0-5 [facility] Glucose [Mass/Vol] 135 mg/dL 74-106 [facility] Comment on above: Fasting Glucose resu lt greater than or equal to 126 mg/dL suggests DIABETES MELLITUS per A.D.A. criteria. Hemoglobin (Bld) [Mass/Vol] 12.8 g/dL 13.0-16.5 [facility] Monocytes/100 WBC (Bld) 15.0 % 0-10 [facility] Neutrophils (Bld) [#/Vol] 3.3 10*3/uL 2.0-7.7 [facility] Neutrophils/100 WBC (Bld) 56.3 % 47-70 [facility] Potassium [Moles/Vol] 3.3 mmol/L 3.5-5.1 [facility] Protein [Mass/Vol] 7.4 g/dL 6.4-8.2 [facility] Sodium [Moles/Vol] 138 mmol/L 136-145 [facility] WBC (Bld) [#/Vol] 5.8 10*3/uL 4.4-11.0 [facility] Determination of erythrocyte mean corpuscular volume (MCV)Ordered By: Avni Walker on 09-09-2023 MCV (RBC) [Entitic vol] 101.0 fL 80-94 [facility] Erythrocyte distribution wid th ratioOrdered By: Avni Kofi on 09-09-2023 Erythrocyte distribution width (RBC) [Ratio] 13.9 % 11.6-14.6 [facility] Erythrocyte distribution wid th standard deviationOrdered By: [facility] on 09-09-2023 Erythrocyte distribution width (RBC) [Entitic vol] 51.6 fL 35.1-43.9 [facility] Hematocrit Auto (Bld) [Volum e fraction][facility] Hematocrit (Bld) [Volume fraction] 40.1 % 40-54 [facility] Immature granulocytes/100 WB C Auto (Bld)Ordered By: [facility] 09-09-2023 Immature granulocytes/100 WBC (Bld) 0.700 % 0.0-0.9 [facility] Comment on above: IG% - Immature Granu locytes (promyelocytes, myelocytes and metamyelocytes) > 1% indicates that a LEFT SHIFT is Present. Laboratory - Chemistry and C hemistry - challengeOrdered By: [facility] Albumin/Globulin [Mass ratio] 1.0 {ratio} 0.9-2.4 [facility] ALP [Catalytic activity/Vol] 75 U/L 45-117 [facility] ALT [Catalytic activity/Vol] 24 U/L 16-61 [facility] CO2 [Moles/Vol] 29.0 mmol/L 21.0-32.0 [facility] Globulin (S) [Mass/Vol] 3.7 g/dL 2.2-4.2 [facility] Urea nitrogen/Creatinine [Mass ratio] 22.3 mg/mg 10-20 [facility] Laboratory - Hematology and Cell countsOrdered By: Avni Walker 09-09-2023 MCH (RBC) [Entitic mass] 32.2 pg 27.0-32.0 [facility] MCHC (RBC) [Mass/Vol] 31.9 g/dL 32-36 [facility] Nucleated RBC/100 WBC (Bld) [Ratio] 0 % 0-5 [facility] Platelet mean volume (Bld) [Entitic vol] 12.8 fL 6.2-12.0 [facility] Platelets (Bld) [#/Vol] 135 10*3/uL 150-450 [facility] No Panel InformationOrdered By: Avni Walker on 09-09-2023 Estimated GFR (MDRD) Amer 105 mL/min >60 [facility] Comment on above: GFR Calc Estimated GFR (MDRD) Non-Af Amer 87 mL/min >60 [facility] Comment on above: Non- GFR Calc Vitamin D 25-Hydroxy 76.0 ng/mL [facility] Comment on above: Vitamin D 25(OH) Sta tus Range Deficiency <20 ng/mL (50nmol/L) Insufficiency 20 - 30 ng/mL (50 - 75 nmol/L) Sufficiency 30 - 100 ng/mL (75 - 250 nmol/L) Toxicity >100 ng/mL (>250 nmol/L) RBC Auto (Bld) [#/Vol]Ordere d By: Avni Walker on 09-09-2023 RBC (Bld) [#/Vol] 3.97 10*6/uL 4.6-6.2 [facility] Serum or plasma calcium brittnee urement (mass/volume)Ordered By: Avni Walker 09-09-2023 Calcium [Mass/Vol] 9.0 mg/dL 8.5-10.1 [facility] Serum or plasma creatinine m easurement (mass/volume)Ordered By: Avni Walker 09-09-2023 Creatinine [Mass/Vol] 0.90 mg/dL 0.70-1.30 [facility] Comment on above: The validity of the calculated GFR & GFRAA in patients over 70 years has not been determined. Clinical correlation is essential. Serum or plasma thyroid stim ulating hormone (TSH) measurement (units/volume)Ordered By: Avni Walker on 09-09-2023 TSH Qn 0.63 uIU/mL 0.358-3.74 [facility] Serum or plasma urea nitroge n measurement (mass/volume)Ordered By: Avni Walker 09-09-2023 Urea nitrogen [Mass/Vol] 20 mg/dL 7-18 [facility] Serum or plasma uric acid me asurement (mass/volume)Ordered By: Avni Walekr 09-09-2023 Urate [Mass/Vol] 5.2 mg/dL 3.5-7.2 [facility] Comment on above: The drugs N-Acetylcy steine and Metamizole may falsely depress this assay. Thin prep Papanicolaou smear with manual screeningOrdered By: Avni Walker on 09-09-2023 Thin prep Papanicolaou smear with manual screening 3.7 g/dL 3.2-5.0 [facility] Thin prep Papanicolaou smear with manual screening 14 U/L 15-37 [facility] Thin prep Papanicolaou smear with manual screening 6 5-15 [facility] Absolute lymphocyte countOrd ered By: Khanh Doran on 03-13-2023 Lymphocytes Auto (Unsp spec) [#/Vol] 1.72 10*3/uL 0.83-4.51 [facility] Basophil percentageOrdered B y: Khanh Doran on 03-13-2023 Basophils/100 WBC (Bld) 0.2 % 0-1 [facility] Bilirubin [Mass/Vol] 0.50 mg/dL 0.20-1.00 [facility] Comment on above: For patients on eltr ombopag therapy, use of Dimension [place] TBIL is not recommended. Chloride [Moles/Vol] 103 mmol/L 98-107 [facility] Eosinophils/100 WBC (Bld) 3.3 % 0-5 [facility] Glucose [Mass/Vol] 130 mg/dL 74-106 [facility] Comment on above: Fasting Glucose resu lt greater than or equal to 126 mg/dL suggests DIABETES MELLITUS per A.D.A. criteria. Neutrophils (Bld) [#/Vol] 5.8 10*3/uL 2.0-7.7 [facility] Neutrophils/100 WBC (Bld) 67.9 % 47-70 [facility] Potassium [Moles/Vol] 3.9 mmol/L 3.5-5.1 [facility] Protein [Mass/Vol] 7.4 g/dL 6.4-8.2 [facility] Sodium [Moles/Vol] 138 mmol/L 136-145 [facility] WBC (Bld) [#/Vol] 8.6 10*3/uL 4.4-11.0 [facility] Blood erythrocytes count (nu mber/volume)Ordered By: Khanh Doran on 03-13-2023 RBC (Bld) [#/Vol] 3.87 10*6/uL 4.6-6.2 [facility] Blood hemoglobin measurement (mass/volume)Ordered By: Khanh Doran on 03-13-2023 Hemoglobin (Bld) [Mass/Vol] 12.7 g/dL 13.0-16.5 [facility] Blood lymphocytes/100 leukoc ytesOrdered By: Khanh Doran on 03-13-2023 Lymphocytes/100 WBC (Bld) 20.0 % 19-41 [facility] Blood monocytes/100 leukocyt esOrdered By: Khanh Doran on 03-13-2023 Monocytes/100 WBC (Bld) 8.3 % 0-10 [facility] Blood platelet mean volumeOr dered By: Khanh Doran on 03-13-2023 Platelet mean volume (Bld) [Entitic vol] 12.7 fL 6.2-12.0 [facility] Determination of erythrocyte mean corpuscular volume (MCV)Ordered By: Khanh Doran on 03-13-2023 MCV (RBC) [Entitic vol] 102.8 fL 80-94 [facility] Hematocrit Auto (Bld) [Volum e fraction]Ordered By: Khanh Doran on 03-13-2023 Hematocrit (Bld) [Volume fraction] 39.8 % 40-54 [facility] Laboratory - Chemistry and C hemistry - challengeOrdered By: Khanh Doran on 03-13-2023 ALP [Catalytic activity/Vol] 82 U/L 45-117 [facility] ALT [Catalytic activity/Vol] 27 U/L 16-61 [facility] CO2 [Moles/Vol] 26.0 mmol/L 21.0-32.0 [facility] Globulin (S) [Mass/Vol] 3.7 g/dL 2.2-4.2 [facility] Urea nitrogen/Creatinine [Mass ratio] 22.4 mg/mg 10-20 [facility] Laboratory - Hematology and Cell countsOrdered By: Khanh Doran on 03-13-2023 Erythrocyte distribution width (RBC) [Entitic vol] 52.4 fL 35.1-43.9 [facility] Erythrocyte distribution width (RBC) [Ratio] 13.7 % 11.6-14.6 [facility] Immature granulocytes/100 WBC (Bld) 0.300 % 0.0-0.9 [facility] Comment on above: IG% - Immature Granu locytes (promyelocytes, myelocytes and metamyelocytes) > 1% indicates that a LEFT SHIFT is Present. MCH (RBC) [Entitic mass] 32.8 pg 27.0-32.0 [facility] Nucleated RBC/100 WBC (Bld) [Ratio] 0 % 0-5 [facility] MCHC Auto (RBC) [Mass/Vol]Or dered By: Khanh Doran on 03-13-2023 MCHC (RBC) [Mass/Vol] 31.9 g/dL 32-36 [facility] No Panel InformationOrdered By: Khanh Doran on 03-13-2023 Estimated GFR (MDRD) Amer 95 mL/min >60 [facility] Comment on above: GFR Calc Estimated GFR (MDRD) Non-Af Amer 78 mL/min >60 [facility] Comment on above: Non- GFR Calc Thyroid Stimulating Hormone (TSH) 0.99 uIU/mL 0.358-3.74 [facility] Vitamin D 25-Hydroxy 61.3 ng/mL [facility] Comment on above: Vitamin D 25(OH) Sta tus Range Deficiency <20 ng/mL (50nmol/L) Insufficiency 20 - 30 ng/mL (50 - 75 nmol/L) Sufficiency 30 - 100 ng/mL (75 - 250 nmol/L) Toxicity >100 ng/mL (>250 nmol/L) Platelets bldOrdered By: Claribel Doran on 03-13-2023 Platelets (Bld) [#/Vol] 163 10*3/uL 150-450 [facility] Serum or plasma albumin brittnee urement (mass/volume)Ordered By: Khanh Doran on 03-13-2023 Albumin [Mass/Vol] 3.7 g/dL 3.2-5.0 [facility] Serum or plasma albumin/glob ulin mass ratioOrdered By: Khanh Doran on 03-13-2023 Albumin/Globulin [Mass ratio] 1.0 {ratio} 0.9-2.4 [facility] Serum or plasma calcium brittnee urement (mass/volume)Ordered By: Khanh Doran on 03-13-2023 Calcium [Mass/Vol] 8.8 mg/dL 8.5-10.1 [facility] Serum or plasma creatinine m easurement (mass/volume)Ordered By: Khanh Doran on 03-13-2023 Creatinine [Mass/Vol] 0.98 mg/dL 0.70-1.30 [facility] Comment on above: The validity of the calculated GFR & GFRAA in patients over 70 years has not been determined. Clinical correlation is essential. Serum or plasma urea nitroge n measurement (mass/volume)Ordered By: Khanh Doran on 03-13-2023 Urea nitrogen [Mass/Vol] 22 mg/dL 7-18 [facility] Serum or plasma uric acid me asurement (mass/volume)Ordered By: Khanh Doran on 03-13-2023 Urate [Mass/Vol] 4.7 mg/dL 3.5-7.2 [facility] Comment on above: The drugs N-Acetylcy steine and Metamizole may falsely depress this assay. Thin prep Papanicolaou smear with manual screeningOrdered By: Khanh Doran on 03-13-2023 Thin prep Papanicolaou smear with manual screening 13 U/L 15-37 [facility] Thin prep Papanicolaou smear with manual screening 9 5-15 [facility] Absolute lymphocyte countOrd ered By: Dr. Walker on 09-04-2022 Lymphocytes Auto (Unsp spec) [#/Vol] 1.42 10*3/uL 0.83-4.51 [facility] Basophil percentageOrdered B y: Dr. Walker on 09-04-2022 Chloride [Moles/Vol] 106 mmol/L 98-107 [facility] Glucose [Mass/Vol] 120 mg/dL 74-106 [facility] Comment on above: Fasting Glucose resu lt from 100 to 125 mg/dL suggests IMPAIRED HOMEOSTASIS per A.D.A. criteria. Potassium [Moles/Vol] 3.5 mmol/L 3.5-5.1 [facility] Sodium [Moles/Vol] 138 mmol/L 136-145 [facility] Basophils/100 WBC (Bld) 0.2 % 0-1 [facility] Bilirubin [Mass/Vol] 0.40 mg/dL 0.20-1.00 [facility] Comment on above: For patients on eltr ombopag therapy, use of Dimension [place] TBIL is not recommended. Eosinophils/100 WBC (Bld) 2.5 % 0-5 [facility] Neutrophils (Bld) [#/Vol] 6.4 10*3/uL 2.0-7.7 [facility] Neutrophils/100 WBC (Bld) 70.5 % 47-70 [facility] Protein [Mass/Vol] 7.0 g/dL 6.4-8.2 [facility] WBC (Bld) [#/Vol] 9.1 10*3/uL 4.4-11.0 [facility] Blood erythrocytes count (nu mber/volume)Ordered By: Dr. Walker on 09-04-2022 RBC (Bld) [#/Vol] 3.78 10*6/uL 4.6-6.2 [facility] Blood hemoglobin measurement (mass/volume)Ordered By: Dr. Walker on 09-04-2022 Hemoglobin (Bld) [Mass/Vol] 12.6 g/dL 13.0-16.5 [facility] Blood lymphocytes/100 leukoc ytesOrdered By: Dr. Walker on 09-04-2022 Lymphocytes/100 WBC (Bld) 15.7 % 19-41 [facility] Blood monocytes/100 leukocyt esOrdered By: Dr. Walker on 09-04-2022 Monocytes/100 WBC (Bld) 10.8 % 0-10 [facility] Blood platelet mean volumeOr dered By: Dr. Walker on 09-04-2022 Platelet mean volume (Bld) [Entitic vol] 12.5 fL 6.2-12.0 [facility] Determination of erythrocyte mean corpuscular volume (MCV)Ordered By: Dr. Walker on 09-04-2022 MCV (RBC) [Entitic vol] 102.4 fL 80-94 [facility] Hematocrit Auto (Bld) [Volum e fraction]Ordered By: Dr. Walker on 09-04-2022 Hematocrit (Bld) [Volume fraction] 38.7 % 40-54 [facility] Laboratory - Chemistry and C hemistry - challengeOrdered By: Dr. Walker on 09-04-2022 CO2 [Moles/Vol] 27.0 mmol/L 21.0-32.0 [facility] Urea nitrogen/Creatinine [Mass ratio] 29.2 mg/mg 10-20 [facility] ALP [Catalytic activity/Vol] 92 U/L 45-117 [facility] ALT [Catalytic activity/Vol] 30 U/L 16-61 [facility] Globulin (S) [Mass/Vol] 3.3 g/dL 2.2-4.2 [facility] Laboratory - Hematology and Cell countsOrdered By: Dr. Walker on 09-04-2022 Erythrocyte distribution width (RBC) [Entitic vol] 51.6 fL 35.1-43.9 [facility] Erythrocyte distribution width (RBC) [Ratio] 13.5 % 11.6-14.6 [facility] Immature granulocytes/100 WBC (Bld) 0.300 % 0.0-0.9 [facility] Comment on above: IG% - Immature Granu locytes (promyelocytes, myelocytes and metamyelocytes) > 1% indicates that a LEFT SHIFT is Present. MCH (RBC) [Entitic mass] 33.3 pg 27.0-32.0 [facility] Nucleated RBC/100 WBC (Bld) [Ratio] 0 % 0-5 [facility] MCHC Auto (RBC) [Mass/Vol]Or dered By: Dr. Walker on 09-04-2022 MCHC (RBC) [Mass/Vol] 32.6 g/dL 32-36 [facility] No Panel InformationOrdered By: Dr. Walker on 09-04-2022 Estimated GFR (MDRD) Amer 102 mL/min >60 [facility] Comment on above: GFR Calc Estimated GFR (MDRD) Non-Af Amer 84 mL/min >60 [facility] Comment on above: Non- GFR Calc Thyroid Stimulating Hormone (TSH) 0.87 uIU/mL 0.358-3.74 [facility] Vitamin D 25-Hydroxy 71.4 ng/mL [facility] Comment on above: Vitamin D 25(OH) Sta tus Range Deficiency <20 ng/mL (50nmol/L) Insufficiency 20 - 30 ng/mL (50 - 75 nmol/L) Sufficiency 30 - 100 ng/mL (75 - 250 nmol/L) Toxicity >100 ng/mL (>250 nmol/L) Platelets bldOrdered By: Dr. Walker on 09-04-2022 Platelets (Bld) [#/Vol] 155 10*3/uL 150-450 [facility] Serum or plasma albumin brittnee urement (mass/volume)Ordered By: Dr. Walker on 09-04-2022 Albumin [Mass/Vol] 3.7 g/dL 3.2-5.0 [facility] Serum or plasma albumin/glob ulin mass ratioOrdered By: Dr. Walker on 09-04-2022 Albumin/Globulin [Mass ratio] 1.1 {ratio} 0.9-2.4 [facility] Serum or plasma calcium brittnee urement (mass/volume)Ordered By: Dr. Walker on 09-04-2022 Calcium [Mass/Vol] 9.2 mg/dL 8.5-10.1 [facility] Serum or plasma creatinine m easurement (mass/volume)Ordered By: Dr. Walker on 09-04-2022 Creatinine [Mass/Vol] 0.93 mg/dL 0.70-1.30 [facility] Comment on above: The validity of the calculated GFR & GFRAA in patients over 70 years has not been determined. Clinical correlation is essential. Serum or plasma urea nitroge n measurement (mass/volume)Ordered By: Dr. Walker on 09-04-2022 Urea nitrogen [Mass/Vol] 27 mg/dL 7-18 [facility] Serum or plasma uric acid me asurement (mass/volume)Ordered By: Dr. Walker on 09-04-2022 Urate [Mass/Vol] 4.5 mg/dL 3.5-7.2 [facility] Comment on above: The drugs N-Acetylcy steine and Metamizole may falsely depress this assay. Thin prep Papanicolaou smear with manual screeningOrdered By: Dr. Walker on 09-04-2022 Thin prep Papanicolaou smear with manual screening 5 5-15 [facility] Thin prep Papanicolaou smear with manual screening 20 U/L 15-37 [facility] No Panel InformationOrdered By: Dr. Corea on 07-10-2022 Prostate Specific Antigen Total 3.54 ng/mL 0.0-4.0 [facility] Comment on above: This test was perfor med using the TPSA assay method for [employer] chemistry system. Values obtained with differentassay methods cannot be used interchangably.When changing PSA assays in the course of monitoring apatient, additional sequential testing should be carriedout to confirm baseline values. Absolute lymphocyte counton 03-06-2022 Lymphocytes Auto (Unsp spec) [#/Vol] 1.72 10*3/uL 0.83-4.51 [facility] Work Phone: Basophil percentageon 2021 Basophils/100 WBC (Bld) 0.3 % 0-1 [facility] Work Phone: Bilirubin [Mass/Vol] 0.50 mg/dL 0.20-1.00 [facility] Work Phone: Comment on above: For patients on eltr ombopag therapy, use of Dimension [place] TBIL is not recommended. Chloride [Moles/Vol] 109 mmol/L 98-107 [facility] Work Phone: Eosinophils/100 WBC (Bld) 4.1 % 0-5 [facility] Work Phone: Glucose [Mass/Vol] 83 mg/dL 74-106 [facility] Work Phone: Neutrophils (Bld) [#/Vol] 5.7 10*3/uL 2.0-7.7 [facility] Work Phone: Neutrophils/100 WBC (Bld) 65.7 % 47-70 [facility] Work Phone: Potassium [Moles/Vol] 3.8 mmol/L 3.5-5.1 [facility] Work Phone: Protein [Mass/Vol] 7.3 g/dL 6.4-8.2 [facility] Work Phone: Sodium [Moles/Vol] 144 mmol/L 136-145 [facility] Work Phone: WBC (Bld) [#/Vol] 8.7 10*3/uL 4.4-11.0 [facility] Work Phone: Blood erythrocytes count (nu mber/volume)on 03-06-2022 RBC (Bld) [#/Vol] 3.96 10*6/uL 4.6-6.2 [facility] Work Phone: Blood hemoglobin measurement (mass/volume)on 03-06-2022 Hemoglobin (Bld) [Mass/Vol] 13.0 g/dL 13.0-16.5 [facility] Work Phone: Blood lymphocytes/100 leukoc yteson 03-06-2022 Lymphocytes/100 WBC (Bld) 19.8 % 19-41 [facility] Work Phone: Blood monocytes/100 leukocyt eson 03-06-2022 Monocytes/100 WBC (Bld) 9.8 % 0-10 [facility] Work Phone: Blood platelet mean volumeon 03-06-2022 Platelet mean volume (Bld) [Entitic vol] 13.4 fL 6.2-12.0 [facility] Work Phone: Determination of erythrocyte mean corpuscular volume (MCV)on 03-06-2022 MCV (RBC) [Entitic vol] 102.5 fL 80-94 [facility] Work Phone: Hematocrit Auto (Bld) [Volum e fraction]on 03-06-2022 Hematocrit (Bld) [Volume fraction] 40.6 % 40-54 [facility] Work Phone: Laboratory - Chemistry and C hemistry - challengeon 03-06-2022 ALP [Catalytic activity/Vol] 93 U/L 45-117 [facility] Work Phone: [phone] ALT [Catalytic activity/Vol] 26 U/L 16-61 [facility] Work Phone: [phone] CO2 [Moles/Vol] 29.0 mmol/L 21.0-32.0 [facility] Work Phone: [phone] Globulin (S) [Mass/Vol] 3.5 g/dL 2.2-4.2 [facility] Work Phone: [phone] Urea nitrogen/Creatinine [Mass ratio] 26.7 mg/mg 10-20 [facility] Work Phone: [phone] Laboratory - Hematology and Cell countson 03-06-2022 Erythrocyte distribution width (RBC) [Entitic vol] 53.2 fL 35.1-43.9 [facility] Work Phone: [phone] Erythrocyte distribution width (RBC) [Ratio] 13.9 % 11.6-14.6 [facility] Work Phone: [phone] Immature granulocytes/100 WBC (Bld) 0.300 % 0.0-0.9 [facility] Work Phone: [phone] Comment on above: IG% - Immature Granu locytes (promyelocytes, myelocytes and metamyelocytes) > 1% indicates that a LEFT SHIFT is Present. MCH (RBC) [Entitic mass] 32.8 pg 27.0-32.0 [facility] Work Phone: [phone] Nucleated RBC/100 WBC (Bld) [Ratio] 0 % 0-5 [facility] Work Phone: [phone] MCHC Auto (RBC) [Mass/Vol]on 03-06-2022 MCHC (RBC) [Mass/Vol] 32.0 g/dL 32-36 [facility] Work Phone: [phone] No Panel Informationon 03-06 Estimated GFR (MDRD) Amer 92 mL/min >60 [facility] Work Phone: [phone] Comment on above: GFR Calc Estimated GFR (MDRD) Non-Af Amer 76 mL/min >60 [facility] Work Phone: Comment on above: Non- GFR Calc Thyroid Stimulating Hormone (TSH) 0.76 uIU/mL 0.358-3.74 [facility] Work Phone: Vitamin D 25-Hydroxy 68.6 ng/mL [facility] Work Phone: Comment on above: Vitamin D 25(OH) Sta tus Range Deficiency <20 ng/mL (50nmol/L) Insufficiency 20 - 30 ng/mL (50 - 75 nmol/L) Sufficiency 30 - 100 ng/mL (75 - 250 nmol/L) Toxicity >100 ng/mL (>250 nmol/L) Platelets bldon 03-06-2022 Platelets (Bld) [#/Vol] 182 10*3/uL 150-450 [facility] Work Phone: Serum or plasma albumin brittnee urement (mass/volume)on 03-06-2022 Albumin [Mass/Vol] 3.8 g/dL 3.2-5.0 [facility] Work Phone: Serum or plasma albumin/glob ulin mass ratioon 03-06-2022 Albumin/Globulin [Mass ratio] 1.1 {ratio} 0.9-2.4 [facility] Work Phone: Serum or plasma calcium brittnee urement (mass/volume)on 03-06-2022 Calcium [Mass/Vol] 9.1 mg/dL 8.5-10.1 [facility] [facility] Work Phone: [phone] Serum or plasma creatinine m easurement (mass/volume)on 03-06-2022 Creatinine [Mass/Vol] 1.01 mg/dL 0.70-1.30 [facility] Work Phone: Comment on above: The validity of the calculated GFR & GFRAA in patients over 70 years has not been determined. Clinical correlation is essential. Serum or plasma urea nitroge n measurement (mass/volume)on 03-06-2022 Urea nitrogen [Mass/Vol] 27 mg/dL 7-18 [facility] Work Phone: [phone] Serum or plasma uric acid me asurement (mass/volume)on 03-06-2022 Urate [Mass/Vol] 4.3 mg/dL 3.5-7.2 [facility] Work Phone: [phone] Comment on above: The drugs N-Acetylcy steine and Metamizole may falsely depress this assay. Thin prep Papanicolaou smear with manual screeningon 03-06-2022 Thin prep Papanicolaou smear with manual screening 14 U/L 15-37 [facility] Work Phone: [phone] Thin prep Papanicolaou smear with manual screening 6 5-15 [facility] Work Phone: [phone] Laboratory - Microbiology an d Antimicrobial susceptibilityon 01-07-2022 SARS-CoV-2 (COVID-19) RNA PADDY+probe Ql (Unsp spec) Detected Not Detect [facility] Work Phone: [phone] Comment on above: Normal Reference Ran ge: Not DetectedMethod:(RT-PCR) real-time reverse transcriptase PCRLuminex Snapfish Instrument*The Food and Drug Administration (FDA) has issued an Emergency Use Authorization (EAU) for the Snapfish SARS-CoV-2 Assay for the rapid detection of the virus that causes COVID-19. This test has been validated, but the FDAs independent review of this validation is pending.*Negative results do not preclude infection and should not be used as the sole basis for treatment or patient management. Optimum specimen types and timing for peak viral levels during infections caused by SARS-CoV-2 have not been determined. Collection of multiple specimens from the same patient may be necessary to detect the virus. The possibility of a false negative result should be considered if the patient has clinical presentation or has had recent exposure. Absolute lymphocyte counton 09-05-2021 Lymphocytes Auto (Unsp spec) [#/Vol] 1.76 10*3/uL 0.83-4.51 [facility] Work Phone: [phone] Basophil percentageon 2021 Basophils/100 WBC (Bld) 0.2 % 0-1 [facility] Work Phone: [phone] Bilirubin [Mass/Vol] 0.50 mg/dL 0.20-1.00 [facility]: Comment on above: For patients on eltr ombopag therapy, use of Dimension [place] TBIL is not recommended. Chloride [Moles/Vol] 104 mmol/L 98-107 [facility] Work Phone: Eosinophils/100 WBC (Bld) 4.0 % 0-5 [facility] Work Phone: Glucose [Mass/Vol] 95 mg/dL 74-106 [facility] Work Phone: Neutrophils (Bld) [#/Vol] 6.2 10*3/uL 2.0-7.7 [facility] Work Phone: Neutrophils/100 WBC (Bld) 66.8 % 47-70 [facility] Work Phone: Potassium [Moles/Vol] 4.3 mmol/L 3.5-5.1 [facility] Work Phone: Protein [Mass/Vol] 7.6 g/dL 6.4-8.2 [facility] Work Phone: Sodium [Moles/Vol] 141 mmol/L 136-145 [facility] Work Phone: WBC (Bld) [#/Vol] 9.2 10*3/uL 4.4-11.0 [facility] Work Phone: Blood erythrocytes count (nu mber/volume)on 09-05-2021 RBC (Bld) [#/Vol] 3.79 10*6/uL 4.6-6.2 [facility] Work Phone: Blood hemoglobin measurement (mass/volume)on 09-05-2021 Hemoglobin (Bld) [Mass/Vol] 12.4 g/dL 13.0-16.5 [facility] Work Phone: Blood lymphocytes/100 leukoc yteson 09-05-2021 Lymphocytes/100 WBC (Bld) 19.1 % 19-41 [facility] Work Phone: Blood monocytes/100 leukocyt eson 09-05-2021 Monocytes/100 WBC (Bld) 9.5 % 0-10 [facility] Work Phone: [phone] Blood platelet mean volumeon 09-05-2021 Platelet mean volume (Bld) [Entitic vol] 13.0 fL 6.2-12.0 [facility] Work Phone: [phone] Determination of erythrocyte mean corpuscular volume (MCV)on 09-05-2021 MCV (RBC) [Entitic vol] 101.6 fL 80-94 [facility] Work Phone: [phone] Hematocrit Auto (Bld) [Volum e fraction]on 09-05-2021 Hematocrit (Bld) [Volume fraction] 38.5 % 40-54 [facility] Work Phone: [phone] Laboratory - Chemistry and C hemistry - challengeon 09-05-2021 ALP [Catalytic activity/Vol] 95 U/L 45-117 [facility] Work Phone: [phone] ALT [Catalytic activity/Vol] 29 U/L 16-61 [facility] Work Phone: [phone] CO2 [Moles/Vol] 30.0 mmol/L 21.0-32.0 [facility] Work Phone: [phone] Globulin (S) [Mass/Vol] 3.8 g/dL 2.2-4.2 [facility] Work Phone: [phone] Urea nitrogen/Creatinine [Mass ratio] 33.8 mg/mg 10-20 [facility] Work Phone: [phone] Laboratory - Hematology and Cell countson 09-05-2021 Erythrocyte distribution width (RBC) [Entitic vol] 51.9 fL 35.1-43.9 [facility] Work Phone: [phone] Erythrocyte distribution width (RBC) [Ratio] 13.9 % 11.6-14.6 [facility] Work Phone: [phone] Immature granulocytes/100 WBC (Bld) 0.400 % 0.0-0.9 [facility] Work Phone: [phone] Comment on above: IG% - Immature Granu locytes (promyelocytes, myelocytes and metamyelocytes) > 1% indicates that a LEFT SHIFT is Present. MCH (RBC) [Entitic mass] 32.7 pg 27.0-32.0 [facility] Work Phone: [phone] Nucleated RBC/100 WBC (Bld) [Ratio] 0 % 0-5 [facility] Work Phone: [phone] MCHC Auto (RBC) [Mass/Vol]on 09-05-2021 MCHC (RBC) [Mass/Vol] 32.2 g/dL 32-36 [facility] Work Phone: [phone] Panel Informationon 09-05 Estimated GFR (MDRD) Amer 99 mL/min >60 [facility] Work Phone: [phone] Comment on above: GFR Calc Estimated GFR (MDRD) Non-Af Amer 82 mL/min >60 [facility] Work Phone: [phone] Comment on above: Non- GFR Calc Thyroid Stimulating Hormone (TSH) 1.01 uIU/mL 0.358-3.74 [facility] Work Phone: [phone] Vitamin D 25-Hydroxy 56.0 ng/mL [facility] Work Phone: [phone] Comment on above: Vitamin D 25(OH) Sta tus Range Deficiency <20 ng/mL (50nmol/L) Insufficiency 20 - 30 ng/mL (50 - 75 nmol/L) Sufficiency 30 - 100 ng/mL (75 - 250 nmol/L) Toxicity >100 ng/mL (>250 nmol/L) Platelets bldon 09-05-2021 Platelets (Bld) [#/Vol] 194 10*3/uL 150-450 [facility] Work Phone: [phone] Serum or plasma albumin brittnee urement (mass/volume)on 09-05-2021 Albumin [Mass/Vol] 3.8 g/dL 3.2-5.0 [facility] Work Phone: [phone] Serum or plasma albumin/glob ulin mass ratioon 09-05-2021 Albumin/Globulin [Mass ratio] 1.0 {ratio} 0.9-2.4 [facility] Work Phone: [phone] Serum or plasma calcium brittnee urement (mass/volume)on 09-05-2021 Calcium [Mass/Vol] 8.6 mg/dL 8.5-10.1 [facility] Work Phone: [phone] Serum or plasma creatinine m easurement (mass/volume)on 09-05-2021 Creatinine [Mass/Vol] 0.95 mg/dL 0.70-1.30 [facility] Work Phone: [phone] Comment on above: The validity of the calculated GFR & GFRAA in patients over 70 years has not been determined. Clinical correlation is essential. Serum or plasma urea nitroge n measurement (mass/volume)on 09-05-2021 Urea nitrogen [Mass/Vol] 32 mg/dL 7-18 [facility] Work Phone: [phone] Serum or plasma uric acid me asurement (mass/volume)on 09-05-2021 Urate [Mass/Vol] 5.1 mg/dL 3.5-7.2 [facility] Work Phone: Comment on above: The drugs N-Acetylcy steine and Metamizole may falsely depress this assay. Thin prep Papanicolaou smear with manual screeningon 09-05-2021 Thin prep Papanicolaou smear with manual screening 15 U/L 15-37 [facility] Work Phone: Thin prep Papanicolaou smear with manual screening 7 5-15 [facility] Work Phone: No Panel Informationon 07-04 Prostate Specific Antigen Total 3.94 ng/mL 0.0-4.0 [facility] Work Phone: Comment on above: This test was perfor med using the TPSA assay method for theDimension chemistry system. Values obtained with differentassay methods cannot be used interchangably.When changing PSA assays in the course of monitoring apatient, additional sequential testing should be carriedout to confirm baseline values. Basophil percentageon 2021 Bilirubin [Mass/Vol] 0.50 mg/dL 0.20-1.00 [facility] Work Phone: [phone] Comment on above: For patients on eltr ombopag therapy, use of Dimension [place] TBIL is not recommended. Cholesterol [Mass/Vol] 158 mg/dL <[address] [facility] Work Phone: [phone] Comment on above: <200 mg/dL Desirable 200-240 mg/dL Borderline >240 mg/dL High Risk Protein [Mass/Vol] 7.9 g/dL 6.4-8.2 [facility] Work Phone: [phone] Triglyceride [Mass/Vol] 128 mg/dL [facility] Work Phone: [phone] Comment on above: The drugs N-Acetylcy steine and Metamizole may falsely depress this assay.Serum Triglycerides Reference Interval Normal <150 mg/dL Borderline high 150 - 199 mg/dL High 200 - 499 mg/dL Very High > or = 500 mg/dL Direct bilirubinon 2 Bilirubin.direct [Mass/Vol] 0.17 mg/dL 0.00-0.30 [facility] Work Phone: [phone] Laboratory - Chemistry and C hemistry - challengeon 06-26-2021 ALP [Catalytic activity/Vol] 96 U/L 45-117 [facility] Work Phone: [phone] ALT [Catalytic activity/Vol] 25 U/L 16-61 [facility] Work Phone: [phone] Globulin (S) [Mass/Vol] 4.0 g/dL 2.2-4.2 [facility] Work Phone: [phone] Natriuretic peptide B (Bld) [Mass/Vol] 74.6 pg/mL 0-100 [facility] Work Phone: [phone] Serum or plasma albumin brittnee urement (mass/volume)on 06-26-2021 Albumin [Mass/Vol] 3.9 g/dL 3.2-5.0 [facility] Work Phone: [phone] Serum or plasma cholesterol in HDL measurement (mass/volume)on 06-26-2021 Cholesterol in HDL [Mass/Vol] 51 mg/dL [facility] Work Phone: [phone] Comment on above: The drugs N-Acetylcy steine and Metamizole may falsely depress this assay. Reference Range HDL <40 mg/dL Low HDL Cholesterol HDL >or= 60 mg/dL High HDL Cholesterol Serum or plasma cholesterol in VLDL measurement (mass/volume)on 06-26-2021 Cholesterol in VLDL [Mass/Vol] 26 mg/dL 5-40 [facility] Work Phone: Serum or plasma low density lipoprotein (LDL) cholesterol measurement (mass/volume)on 06-26-2021 Cholesterol in LDL [Mass/Vol] 81 mg/dL 0-130 [facility] Work Phone: Thin prep Papanicolaou smear with manual screeningon 06-26-2021 Thin prep Papanicolaou smear with manual screening 12 U/L 15-37 [facility] Work Phone: CNNURSEon 08-04-2020 CNNURSE Nurse Visit (COVAMD) ANTOINE PEREZ ([id number]) 1945 M Date Time Provider Department 08/04/20 HOWARD HAQ (DEMURRAGE WORKER) COVSAMIR During your visit today, we recorded the following information about you: Allergies As of Date: 08/04/2020 Noted Allergy Reaction SULFA (SULFONAMIDE ANTIBIOTICS) 02/06/2012 4 - Hives Comments: childhood Date Reviewed: 10/12/2019 Reviewed by: Jeferson Chirinos Ma - Fully Assessed Order(s):[employer] SARS-COV-2 VACCINE 2D DOSE APPT [[id number]] Order #: [id number] Prescriptions as of 08/04/2020 Sig: MELOXICAM 15 MG TABLET Take 15 [...] TABLET Take 40 mg by mouth every estephania* Problem List As Of Date 08/04/2020 Noted Resolved Personal history of colonic polyps [Z86.010] 04/01/2013 HTN (hypertension) [I10] 05/25/2015 Pure hypercholesterolemia [E78.00] 05/25/2015 Constitutional obesity [E66.8] 05/25/2015 Gout of ankle [M10.9] 05/25/2015 Diverticulosis of large intestine [K57.30] 05/25/2015 Primary osteoarthritis of left knee [M17.12] 06/29/2015 Urinary frequency [R35.0] 06/04/2019 Former smoker [Z87.891] 06/04/2019 Primary osteoarthritis of right knee [M17.11] 06/04/2019 Arthritis of knee [M17.10] 06/18/2019 06/18/2019 S/P total knee arthroplasty, right [Z96.651] 07/21/2019 Encounter Status:Open [facility] CBC AND ELECTRONIC DIFFon Basophils (Bld) [#/Vol] 10*3/uL Normal 0.00-0.09 [facility] Comment on above: Performed By: #### L [id number] #### [facility] (DEFAULT) [address] [address] Basophils/100 WBC (Bld) 0.3 % Normal [facility] Comment on above: Performed By: #### L [id number] #### [facility] (DEFAULT) [address] [address] DIFF STATUS Electronic Differential Normal [facility] Comment on above: Performed By: #### L [id number] #### [facility] (DEFAULT) [address] [address] Eosinophils (Bld) [#/Vol] 0.34 10*3/uL Normal 0.00-0.48 [facility] Comment on above: Performed By: #### L [id number] #### [facility] (DEFAULT) [address] [address] Eosinophils/100 WBC (Bld) 3.8 % Normal [facility] Comment on above: Performed By: #### L [id number] #### [facility] (DEFAULT) [address] [address] Hematocrit (Bld) [Volume fraction] 40.1 % Normal 39.6-48.8 [facility] Comment on above: Performed By: #### L [id number] #### [facility] (DEFAULT) [address] [address] Hemoglobin (Bld) [Mass/Vol] 13.4 g/dL Normal 13.4-16.8 [facility] Comment on above: Performed By: #### L [id number] #### [facility] (DEFAULT) [address] [address] Immature Grans % 0.5 % Normal [facility] Comment on above: Performed By: #### L [id number] #### [facility] (DEFAULT) [address] [address] Immature Grans Absolute 0.04 K/uL Normal <=0.08 [facility] Comment on above: Performed By: #### L [id number] #### [facility] (DEFAULT) [address] [address] Lymphocytes (Bld) [#/Vol] 1.99 10*3/uL Normal 0.83-3.57 [facility] Comment on above: Performed By: #### L [id number] #### [facility] (DEFAULT) [address] [address] Lymphocytes/100 WBC (Bld) 22.5 % Normal [facility] Comment on above: Performed By: #### L [id number] #### [facility] (DEFAULT) [address] [place] [address] MCV (RBC) [Entitic vol] 97.3 fL High 79.0-94.5 [facility] Comment on above: Performed By: #### L [id number] #### [facility] (DEFAULT) [address] [place] [address] Mean Cell Hgb 32.5 pg Normal 26.1-33.3 [facility] Comment on above: Performed By: #### L AB980 #### [facility] (DEFAULT) [address] [place] [address] Mean Cell Hgb Conc 33.4 g/dL Normal 31.9-36.5 [facility] Comment on above: Performed By: #### L [id number] #### [facility] (DEFAULT) [address] [place] [address] Monocytes (Bld) [#/Vol] 0.79 10*3/uL Normal 0.24-0.93 [facility] Comment on above: Performed By: #### L AB980 #### [facility] (DEFAULT) [address] [address] Monocytes/100 WBC (Bld) 8.9 % Normal [facility] Comment on above: Performed By: #### L [id number] #### [facility] (DEFAULT) [address] [address] Nucleated RBC 0.0 /100 WBC Normal <=0.2 [facility] Comment on above: Performed By: #### L [id number] #### [facility] (DEFAULT) [address] [place] [address] Platelet mean volume (Bld) [Entitic vol] 13.0 fL High 8.7-12.3 [facility] Comment on above: Performed By: #### L [id number] #### [facility] (DEFAULT) [address] [place] [address] Platelets (Bld) [#/Vol] 147 10*3/uL Normal 146-337 [facility] Comment on above: Performed By: #### L [id number] #### [facility] (DEFAULT) [address] [place] [address] RBC (Bld) [#/Vol] 4.12 10*6/uL Low 4.38-5.83 [facility] Comment on above: Performed By: #### L [id number] #### [facility] (DEFAULT) [address] [place] [address] RBC Distribution 13.4 % Normal 10.9-14.3 [facility] Comment on above: Performed By: #### L [id number] #### [facility] (DEFAULT) [address] [address] Segs + Bands Auto 64.0 % Normal [facility] Comment on above: Performed By: #### L [id number] #### [facility] (DEFAULT) [address] [address] Segs + Bands,Absolute Auto 5.67 K/uL Normal 1.57-6.19 [facility] Comment on above: Performed By: #### L AB980 #### [facility] (DEFAULT) [address] [address] WBC (Bld) [#/Vol] 8.86 10*3/uL Normal 3.73-10.10 [facility] Comment on above: Performed By: #### L [id number] #### [facility] (DEFAULT) [address] [address] CHEM 7 (LYTES,BUN,CREA,GLUC) on 08-03-2020 Anion gap [Moles/Vol] 16 mmol/L Normal 7-17 [facility] Comment on above: Performed By: #### C HM7 #### [facility] (DEFAULT) [address] [place] [address] Chloride [Moles/Vol] 105 mmol/L Normal 98-108 [facility] Comment on above: Performed By: #### C HM7 #### [facility] (DEFAULT) [address] [place] [address] CO2 [Moles/Vol] 26 mmol/L Normal 22-30 [facility] Comment on above: Performed By: #### C HM7 #### [facility] (DEFAULT) [address] [place] [address] Creatinine [Mass/Vol] 0.72 mg/dL Normal 0.70-1.30 [facility] Comment on above: Performed By: #### C HM7 #### [facility] (DEFAULT) [address] [address] EST GFR, >=60 Normal >=60 [facility] Comment on above: Performed By: #### C HM7 #### [facility] (DEFAULT) [address] [address] EST GFR,Non >=60 Normal >=60 [facility] Comment on above: Performed By: #### C HM7 #### [facility] (DEFAULT) [address] [address] Glucose [Mass/Vol] 126 mg/dL High 70-99 [facility] Comment on above: Performed By: #### C HM7 #### [facility] (DEFAULT) [address] [address] Osmolality [Osmolality] 305 mosm/kg Normal 278-305 [facility] Comment on above: Performed By: #### C HM7 #### [facility] (DEFAULT) [address] [place] [address] Potassium [Moles/Vol] 3.7 mmol/L Normal 3.5-5.0 [facility] Comment on above: Performed By: #### C HM7 #### [facility] (DEFAULT) [address] [address] Sodium [Moles/Vol] 143 mmol/L Normal 133-143 [facility] Comment on above: Performed By: #### C HM7 #### [facility] (DEFAULT) [address] [place] [address] Urea nitrogen [Mass/Vol] 28 mg/dL High 12-07 [facility] Comment on above: Performed By: #### C HM7 #### [facility] (DEFAULT) [address] [place] [address] Urea nitrogen/Creatinine [Mass ratio] 39 mg/mg Normal [facility] Comment on above: Performed By: #### C HM7 #### [facility] (DEFAULT) [address] [place] [address] EP PROCEDURE - EPS/ABLATION/ DEVICEon 08-03-2020 EP PROCEDURE - EPS/ABLATION/DEVICE The patient has persistent atrial flutter and is here for catheter ablation. The patient arrived to the EP laboratory in ATRIAL FLUTTER. Mapping was performed of the RA free wall, the RA cavo-tricuspid isthmus region and the coronary sinus. By pacing and mapping from the RA free wall, RA cavo-tricuspid isthmus region and from coronary sinus/left atrium as well as 3D electroanatomic mapping with CARTO, the mechanism of the tachycardia was confirmed to be RA flutter within the cavo-tricuspid isthmus. A line of ablation was completed from the TV to the IVC with confirmation of bidirectional conduction block up to 20 minutes after the last ablation lesion. With ablation, the tachycardia terminated. Post ablation, there was normal SA, AV and with slight prolongation of HV = 65ms. PLAN: ? 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 ALL CARDIAC AND EP FOLLOW UP WITH HIS DITCHING MACHINE ENGINEER IN HURST - NO F/U AT [facility] ? HOME TODAY ? GIVE LASIX THIS AM ? INCREASE LOSARTAN TO 50MG PO BID ? CONTINUE TOPROL AND ELIQUIS Antoine Perez EP Procedure - EPS/Ablation/Device Ordering Physician: EDMUND PARRY Order #: [id number] Study Date: 08/03/2020 Patient Information Name MRN Description Antoine Perez [id number] 74 y.o. male Physicians Panel Physicians Referring Physician Case Authorizing Physician Edmund Parry MD (Primary) NOEMI Mojica MD Procedures Atrial Flutter Ablation Pre Procedure Diagnosis Palpitations [R00.2]Typical atrial flutter [I48.3] Post Procedure Diagnosis Palpitations [R00.2]Typical atrial flutter [I48.3] Indications Palpitations [R00.2 (ICD-10-CM)] Typical atrial flutter [I48.3 (ICD-10-CM)] Conclusion The patient has persistent atrial flutter and is here for catheter ablation. The patient arrived to the EP laboratory in ATRIAL FLUTTER. Mapping was performed of the RA free wall, the RA cavo-tricuspid isthmus region and the coronary sinus. By pacing and mapping from the RA free wall, RA cavo-tricuspid isthmus region and from coronary sinus/left atrium as well as 3D electroanatomic mapping with CARTO, the mechanism of the tachycardia was confirmed to be RA flutter within the cavo-tricuspid isthmus. A line of ablation was completed from the TV to the IVC with confirmation of bidirectional conduction block up to 20 minutes after the last ablation lesion. With ablation, the tachycardia terminated. Post ablation, there was normal SA, AV and with slight prolongation of HV = 65ms. PLAN: ? 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 ALL CARDIAC AND EP FOLLOW UP WITH HIS DITCHING MACHINE ENGINEER IN HURST - NO F/U AT [facility] ? HOME TODAY ? GIVE LASIX THIS AM ? INCREASE LOSARTAN TO 50MG PO BID ? CONTINUE TOPROL AND ELIQUIS Consent The procedure was explained including the potential risks of infection, heart perforation, re-operation, and other risks pertinent to procedure. Informed consent and permission to proceed was given. Site Preparation On the day of the procedure, the patient was brought to the operating room and the groin prepped with chloraprep. Site prepped by RT Elenita. The patient was draped in the usual sterile manner. Site prepped by RT Elenita. ` Interval Collection conditions: baseline. Type of rhythm: atrial flutter. H-V: 65 ms. Atrial Pacing Atrial site studied: left atrium via coronary sinus. Collection conditions: post RF ablation. Longest SNRT: 1211 ms. Sinus cycle length: 680 ms. CSNRT: 531 ms. AV Wenckebach interval: 400 ms. Pacing site 1: low right atrium. Record site 1: left atrium via coronary sinus. Conduction time 1: 225 ms. Pacing site 2: left atrium via coronary sinus. Record site 2: low right atrium. Conduction time 2: 240 ms. Ventricular Pacing Site paced: right ventricle. Collection conditions: post RF ablation. VA block cycle length: 360 ms. Ablation Ablation Site: TV-IVC isthmus. Arrhythmia Type: atrial flutter. System used: Carto (3D). Catheter successful. Energy type: radio frequency. Irrigation method: open irrigation cool tip. The ablation procedure was successful. Temperature achieved: 28 C. Energy delivered: 38 espinoza. Max espinoza: 43 espinoza. Impedance: 108 ohms. Duration of energy delivered: 669 seconds. Num of energy applications: 3. SVT Arrhythmia Collection conditions: baseline. Induction site: left atrium via coronary sinus. Arrhythmia type: atrial flutter. Arrhythmia description: Typical flutter confirmed isthmus dependent . Cycle length: 240 ms. ` Implants No implant documentation for this case. Fluoro Time - EP Fluoro time = 4.2 minutes. Total dose = 121 mGy. Total DAP = 13.2 Gy-cm2. Measurements BSA: 2.15 m2 Complications Complications documented before study signed (08/03/2020 9: (more content not included)... Normal [facility] PT,INR,PTTon 08-03-2020 aPTT Coag (Bld) [Time] 44.4 s High 24.0-34.3 [facility] Comment on above: Performed By: #### P TPTT #### [facility] (DEFAULT) [address] [address] INR Coag (PPP) [Relative time] 1.3 {INR} High 0.9-1.1 [facility] Comment on above: Performed By: #### P TPTT #### [facility] (DEFAULT) [address] [address] PT Coag (PPP) [Time] 15.8 s High 11.9-14.2 [facility] Comment on above: Performed By: #### P TPTT #### [facility] (DEFAULT) [address] [place] [address] CNNURSEon 07-14-2020 CNNURSE Nurse Visit (COVAMD) ANTOINE PEREZ ([id number]) 1945 M Date Time Provider Department 07/14/20 2:25 PM [facility] During your visit today, we recorded the following information about you: Referring Provider: RENZO DÍAZ [[id number]] Allergies As of Date: 07/14/2020 Noted Allergy Reaction SULFA (SULFONAMIDE ANTIBIOTICS) 02/06/2012 4 - Hives Comments: childhood Date Reviewed: 10/12/2019 Reviewed by: Jeferson Chirinos Ma - Fully Assessed Primary Visit Diagnosis:Need for COVID-19 vaccine [Z23] Order(s):SARS-COVID VACCINE 1ST DOSE APPT [[id number]] Order #: [id number] [employer] COVID-19 VACCINE [[id number]] Order #: [id number] [facility] SARS-COV-2 VACCINE 2D DOSE APPT [[id number]] Order #: [id number] FUTURE Prescriptions as of 07/14/2020 Sig: MELOXICAM 15 MG TABLET Take 15 [...] TABLET Take 40 mg by mouth every estephania* Problem List As Of Date 07/14/2020 Noted Resolved Personal history of colonic polyps [...] S/P total knee arthroplasty, right [Z96.651] 07/21/2019 Encounter Status:Closed by HOWARD HAQ on 07/15/20 [facility] No Panel Information Influenza Types A,B Direct FA ([facility]) [facility] Work Phone: Vital Signs Date Time Vital Sign Value Performing Clinician Cely blum 10-12-2024 06:49-0400 Body height 172.[address] Avni Walker MD Work Phone: [facility] 10-12-2024 06:49-0400 Body mass index (BMI) [Ratio] 35.1 kg/m2 Dr. Avin Walker MD Work Phone: [facility] 10-12-2024 06:49-0400 Body weight 104.[address] Avni Walker MD Work Phone: [facility] 10-12-2024 06:49-0400 Diastolic blood pressure 71 mm[Hg] Dr. Avni Walker MD Work Phone: [facility] 10-12-2024 06:49-0400 Heart rate 54 /min Dr. Avni Walker MD Work Phone: [facility] 10-12-2024 06:49-0400 Respiratory rate 18 /min Dr. Avni Walker MD Work Phone: [facility] 10-12-2024 06:49-0400 SaO2% (BldA) [Mass fraction] 93 % Dr. Avni Walker MD Work Phone: [facility] 10-12-2024 06:49-0400 Systolic blood pressure 122 mm[Hg] Dr. Avni Walker MD Work Phone: 5(635)956-145972 [place] [address] 07-14-2023 14:11-0500 Body height 172.[address] Avni Walker Work Phone: 5(114)708-959872 [place] [address] 07-14-2023 14:11-0500 Body mass index (BMI) [Ratio] 36.1 kg/m2 Dr. Avni Walker Work Phone: 4(176)983-472372 [place] [address] 07-14-2023 14:11-0500 Body weight 107.[address] Avni Walker Work Phone: 9(551)676-759672 [place] [address] 07-14-2023 14:11-0500 Diastolic blood pressure 52 mm[Hg] Dr. Avni Walker Work Phone: [facility] 07-14-2023 14:11-0500 Heart rate 48 /min Dr. Avni Walker Work Phone: [facility] 07-14-2023 14:11-0500 Respiratory rate 18 /min Dr. Avni Walker Work Phone: [facility] 07-14-2023 14:11-0500 Systolic blood pressure 100 mm[Hg] Dr. Avni Walker Work Phone: [facility] 03-19-2023 11:02-0400 Body temperature 97.6 [degF] Dr. Avni Walker Work Phone: [facility] 03-19-2023 11:02-0400 Diastolic blood pressure 57 mm[Hg] Dr. Avni Walker Work Phone: [facility] 03-19-2023 11:02-0400 Heart rate 45 /min Dr. Avni Walker Work Phone: [facility] 03-19-2023 11:02-0400 Respiratory rate 16 /min Dr. Avni Walker Work Phone: [facility] 03-19-2023 11:02-0400 SaO2% (BldA) [Mass fraction] 94 % Dr. Avni Walker Work Phone: [facility] 03-19-2023 11:02-0400 Systolic blood pressure 141 mm[Hg] Dr. Avni Walker Work Phone: 2(902)618-759772 [place] [address] 03-19-2023 07:10-0400 Body height 172.[address] Avni Walker Work Phone: 6(713)198-952572 [place] [address] 03-19-2023 07:10-0400 Body mass index (BMI) [Ratio] 37.4 kg/m2 Dr. Avni Walker Work Phone: 5(821)515-149972 [place] [address] 03-19-2023 07:10-0400 Body weight 111.[address] Avni Walker Work Phone: 9(159)209-196072 [place] [address] 01-14-2023 14:27-0400 Body mass index (BMI) [Ratio] 36.8 kg/m2 Dr. Avni Walker Work Phone: 1(544)237-217372 [place] [address] 01-14-2023 14:27-0400 Body weight 109.[address] Avni Walker Work Phone: 3(138)173-859172 [place] [address] 01-14-2023 14:27-0400 Diastolic blood pressure 84 mm[Hg] Dr. Avni Walker Work Phone: [facility] 01-14-2023 14:27-0400 Heart rate 62 /min Dr. Avni Walker Work Phone: [facility] 01-14-2023 14:27-0400 Respiratory rate 18 /min Dr. Avni Walker Work Phone: [facility] 01-14-2023 14:27-0400 SaO2% (BldA) [Mass fraction] 92 % Dr. Avni Walker Work Phone: 8(390)132-038872 [place] [address] 01-14-2023 14:27-0400 Systolic blood pressure 139 mm[Hg] Dr. Avni Walker Work Phone: [facility] 06-27-2022 14:29-0500 Body height 172.[address] Avni Walker Work Phone: [facility] 06-27-2022 14:21-0500 Body mass index (BMI) [Ratio] 35.4 kg/m2 Dr. Avni Walker Work Phone: [facility] 06-27-2022 14:21-0500 Body weight 105.[address] Avni Walker Work Phone: [facility] 06-27-2022 14:21-0500 Diastolic blood pressure 73 mm[Hg] Dr. Avni Walker Work Phone: [facility] 06-27-2022 14:21-0500 Heart rate 45 /min Dr. Avni Walker Work Phone: [facility] 06-27-2022 14:21-0500 Respiratory rate 18 /min Dr. Avni Walker Work Phone: [facility] 06-27-2022 14:21-0500 Systolic blood pressure 127 mm[Hg] Dr. Avni Walker Work Phone: [facility] 01-08-2022 16:10-0400 Body temperature 97.2 [degF] Dr. Avni Walker Work Phone: [facility] Work Phone: 01-08-2022 16:10-0400 Diastolic blood pressure 55 mm[Hg] Dr. Avni Walker Work Phone: [facility] Work Phone: 01-08-2022 16:10-0400 Heart rate 41 /min Dr. Avni Walker Work Phone: [facility] Work Phone: 01-08-2022 16:10-0400 Respiratory rate 16 /min Dr. Avni Walker Work Phone: [facility] Work Phone: 01-08-2022 16:10-0400 SaO2% (BldA) [Mass fraction] 96 % Dr. Avni Walker Work Phone: [facility] Work Phone: 01-08-2022 16:10-0400 Systolic blood pressure 145 mm[Hg] Dr. Avni Walker Work Phone: [facility] Work Phone: 01-08-2022 14:46-0400 Body height 172.[address] Avni Walker Work Phone: [facility] Work Phone: 01-08-2022 14:46-0400 Body mass index (BMI) [Ratio] 33.9 kg/m2 Dr. Avni Walker Work Phone: [facility] Work Phone: 01-08-2022 14:46-0400 Body weight 101.[address] Avni Walker Work Phone: [facility] Work Phone: 12-25-2021 14:39-0400 Body mass index (BMI) [Ratio] 34.2 kg/m2 Dr. Avni Walker Work Phone: [facility] Work Phone: 12-25-2021 14:39-0400 Body weight 102.[address] Avni Walker Work Phone: [facility] Work Phone: 12-25-2021 14:39-0400 Diastolic blood pressure 62 mm[Hg] Dr. Avni Walker Work Phone: [facility] Work Phone: 12-25-2021 14:39-0400 Heart rate 45 /min Dr. Avni Walker Work Phone: [facility] Work Phone: 12-25-2021 14:39-0400 Respiratory rate 16 /min Dr. Avni Walker Work Phone: [facility] Work Phone: 12-25-2021 14:39-0400 Systolic blood pressure 112 mm[Hg] Dr. Avni Walker Work Phone: [facility] Work Phone: 06-26-2021 14:40-0500 Body height 172.[address] Avni Walker Work Phone: [facility] Work Phone: 06-26-2021 14:40-0500 Body mass index (BMI) [Ratio] 34.9 kg/m2 Dr. Avni Walker Work Phone: [facility] Work Phone: 06-26-2021 14:40-0500 Body weight 104.[address] Avni Walker Work Phone: [facility] Work Phone: 06-26-2021 14:40-0500 Diastolic blood pressure 73 mm[Hg] Dr. Avni Walker Work Phone: [facility] Work Phone: 06-26-2021 14:40-0500 Heart rate 60 /min Dr. Avni Walker Work Phone: [facility] Work Phone: 06-26-2021 14:40-0500 Respiratory rate 18 /min Dr. Avni Walker Work Phone: [facility] Work Phone: 06-26-2021 14:40-0500 SaO2% (BldA) [Mass fraction] 98 % Dr. Avni Walker Work Phone: [facility] Work Phone: 06-26-2021 14:40-0500 Systolic blood pressure 123 mm[Hg] Dr. Avni Walker Work Phone: [facility] Work Phone: Encounters Encounter Date Encounter Type Care Provider Facility Start: 10-12-2024 End: 10-12-2024 Patient encounter procedure Jules FRANKLIN [facility] Work Phone: Start: 10-12-2024 End: 10-12-[address] Avni Walker MD Work Phone: [facility] Work Phone: Start: 09-30-2024 End: 09-30-[address] Avni Walker MD Work Phone: [facility] Work Phone: Start: 09-30-2024 End: 09-30-[address] Avni Walker MD -Laboratory Work Phone: Start: 09-30-2024 End: 09-30-2024 ambulatory Avni Chi Kofi Facility:[facility] Start: 09-13-2024 End: 09-13-[address] Avni Walker MD -Laboratory Work Phone: Start: 09-13-2024 End: 09-13-2024 ambulatory Avni Chi Kofi Facility:[facility] Start: 07-16-2024 Encounter for other preprocedural examination Linda Perez NP [facility] Start: 05-26-2024 ambulatory Fabiola L White Facility :[facility] Start: 05-26-2024 End: 05-31-2024 Evaluation and management of inpatient Fabiola L White Facility:[facility] Start: 05-23-2024 End: 05-23-2024 Emergency department patient visit Avni Chi Kofi Facility:[facility] Start: 05-20-2024 ambulatory Avni Chi Kofi Facility:[facility] Start: 05-20-2024 End: 05-20-2024 ambulatory Avni Chi Kofi Facility:[facility] Start: 04-13-2024 End: 04-13-2024 ambulatory Avni Chi Kofi Facility:[facility] Start: 03-19-2024 End: 03-19-2024 ambulatory Avni Chi Kofi Facility:[facility] Start: 03-15-2024 End: 03-15-2024 ambulatory Avni Chi Kofi Facility:[facility] Start: 03-09-2024 End: 03-09-2024 ambulatory Avni Walker Facility:[facility] Start: 03-09-2024 End: 03-09-2024 ambulatory Lucernemines Jeffrey Facility:[facility] Start: 11-25-2023 End: 11-25-2023 ambulatory Cecilia Olivo Facility:[facility] Start: 09-17-2023 End: 09-17-[address] Avni Walker Work Phone: [facility] Work Phone: Start: 09-17-2023 End: 09-17-[address] Avni Walker Work Phone: [facility]-Laboratory, Phy Office 3rd Flr Start: 09-09-2023 End: 09-09-[address] Avni Walker Work Phone: [facility] Work Phone: Start: 09-09-2023 End: 09-09-[address] Avni Walker Work Phone: [facility]-Laboratory, Phy Office 3rd Flr Start: 07-23-2023 End: 07-23-[address] Avni Walker Work Phone: [facility] Work Phone: Start: 07-23-2023 End: 07-23-[address] Avni Walker Work Phone: [facility]-Pulmonary Services/Neurology Work Phone: Start: 07-14-2023 End: 07-14-[address] Avni Walker Work Phone: [facility] Work Phone: Start: 03-19-2023 End: 03-19-2023 Admission to same day surgery center Dr. Avni Walker Work Phone: [facility]-Surgical Day Care Start: 03-19-2023 End: 03-19-[address] Avni Walker Work Phone: [facility] Work Phone: Start: 01-14-2023 End: 01-14-[address] Avni Walker Work Phone: [facility] Work Phone: Start: 09-04-[address] [facility] Start: 08-30-2022 End: 08-30-[address] Avni Walker Work Phone: [facility] Work Phone: Start: 08-30-2022 End: 08-30-[address] [facility] Start: 07-10-2022 End: 07-10-[address] [facility] Start: 06-27-2022 End: 06-27-[address] Avni Walker Work Phone: [facility] Start: 03-06-2022 End: 03-06-[address] Avin Walker Work Phone: [facility] Work Phone: Start: 03-06-2022 End: 03-06-[address] [facility]ni [facility] Start: 01-08-2022 End: 01-08-[address] Avni Walker Work Phone: [facility] Work Phone: Start: 01-08-2022 End: 01-08-[address] [facility] Start: 01-08-2022 End: 01-08-[address] [facility] Start: 01-07-2022 End: 01-07-[address] Avni Walker Work Phone: [facility] Work Phone: Start: 01-07-2022 End: 01-07-[address] [facility] Start: 12-25-2021 End: 12-25-[address] Avni Walker Work Phone: [facility] Start: 09-05-2021 End: 09-05-[address] [facility] Start: 07-04-2021 End: 07-04-[address] [facility] Start: 06-26-2021 End: 06-26-[address] [facility] Start: 08-03-2020 End: 08-03-2020 ambulatory AVNIANN WALKER Facility:[facility] Procedures Date Procedure Procedure Detail Performing Clinician Start: 09-30-2024 SARS-CoV-2, Influenz a & RSV (PCR) Dr. Avni Walker MD Work Phone: Start: 09-13-2024 Vitamin D, 25-hydrox y measurement Dr. Avni Walker MD Work Phone: Comment on above: Vitamin D StatusDefi ciency: <20 ng/mL (50nmol/L)Insufficiency: 20-30 ng/mL (50-75 nmol/L)Sufficiency: 30-100 ng/mL (75-250 nmol/L)Toxicity: >100 ng/mL (>250 nmol/L) Start: 03-19-2023 Cysto Direct Visuali zation (Not Applicable) Dr. Avni Walker Work Phone: Influenza Types A,B Direct FA ([facility]) Dr. Avni Walker Work Phone: Respiratory syncytia l virus antigen assay Dr. Avni Walker Work Phone: Plan of Treatment Date Care Activity Detail Author Start: 10-12-2024 Evaluation of diagno stic study results [facility] Start: 03-19-2023 Patient discharge [facility] Start: 03-19-2023 End: 03-19-2023 [facility] Start: 03-19-2023 Ambulation without limitation [facility] Start: 03-19-[address] [facility] Start: 03-19-2023 Taking patient vital signs [facility] Patient referral [facility] Work Phone: Immunizations Immunization Date Immunization Notes Care Provider Fa cility 02-17-2024 influenza, injectabl e, quadrivalent, preservative free Dr. Avni Walker MD Work Phone: [facility] 01-05-2020 influenza, injectabl e, quadrivalent, preservative free Dr. Avni Walker Work Phone: [facility] 01-05-2020 influenza, seasonal, injectable Dr. Avni Walker Work Phone: [facility] Payers Date Payer Category Payer Self-pay [id number] 2020 Unknown [id number] 2020 Medicare [id number] 1945 Unknown [id number] 2.16. [id number] Unknown [id number] [facility] [id number] Unknown [id number] 2.16.8 [id number] Unknown [id number] 2.16.8 [id number] Unknown [id number] 2.16.8 [id number] Unknown [id number] 2.16.8 [id number] Unknown [id number] 2.16.8 40.1.701097.3.579.2.462 Unknown [id number] 2.16.8 40.1.228734.3.579.2.462 Unknown [id number] 2.16.8 40.1.286896.3.579.2.462 Unknown [id number] 2.16.8 40.1.401353.3.579.2.462 Unknown [id number] 2.16.8 40.1.880294.3.579.2.462 Unknown [id number] 2.16.8 40.1.526312.3.579.2.462 Unknown [id number] 2.16.8 40.1.707144.3.579.2.462 Unknown [id number] 2.16.8 40.1.936580.3.579.2.462 Unknown [id number] 2.16.8 40.1.083033.3.579.2.462 Unknown [id number] 2.16.8 40.1.221770.3.579.2.462 Unknown [id number] 2.16.8 40.1.474912.3.579.2.462 Unknown [id number] 2.16.8 40.1.098586.3.579.2.462 Unknown [id number] 2.16.8 40.1.805374.3.579.2.462 Unknown [id number] 2.16.8 40.1.016807.3.579.2.462 Unknown [id number] 2.16.8 40.1.634685.3.579.2.462 Unknown [id number] 2.16.8 40.1.707317.3.579.2.462 Social History Date Type Detail Facility Start: 06-26-2021 End: 07-14-2023 Tobacco smoking status [facility] Unknown if ever smoked [facility] Start: 11-16-2020 Occasional [facility] Start: 11-16-2020 None [facility] Start: 06-02-2020 Spouse/ Signif icant Other [facility] Start: 11-16-2020 Non-smoker [facility] Start: 1945 Sex Assigned At Male [facility] Start: 05-26-2024 Tobacco smoking status NHIS Ex-smoker (finding) [facility] Goals Date Patient Goal Desired Activity /State Mental Status Date Assessment Result Facility 03-19-2023 Cognitive function Voice/Name [facility] Work Phone: 01-08-2022 Cognitive function Voice/Name [facility] Work Phone: Clinical Notes 07-10-2020 to 05-31-2024 Note Date & Type Note Facility 05-31-2024 Note [facility] Medical Records Department [address] [place] [address] Discharge Summary 05/31/24 1305 MR#: [id number] Acct: [id number] Name: ANTOINE PEREZ Rep #: [id number] : 1945 78 From: Keith Kuhn MD PCP: Dr. Avni Walker MD Status:ADM IN Location: [place] [address] Providers Date of Admission: 05/26/24 Date of Discharge: 05/31/24 Primary Care Physician: Dr. Avni Walker MD Consultations 05/28/24 09:25 Consult: Onc/Wound/computer forensics examiner Routine Comment: Reason for Consult:: right neck 05/29/24 10:59 Consult: General Surgery Routine Consulting Provider: Ángel Quiroz Reason for Consult: Submental abscess EMERGENT Consult: No MD Notified: Yes Date Notified: 05/29/24 Time Notified: 10:59 Method of Notification: Verbal Reason For Visit: R SUBMENTAL ABSCESS A/P BX Diagnosis Discharge Diagnosis (1) Abscess: Status: Acute Code(s): L02.91 - Cutaneous abscess, unspecified Plan Patient is a 78-year-old gentleman who underwent lymph node biopsy by interventional radiology subsequently developed swelling and erythema under the right chin treated with Keflex without much improvement presented back to the emergency department underwent I D and subsequently admitted to regular nursing floor for further management 1. Submandibular abscess ??? Status post I D in the emergency department. Cultures were sent. Subsequently started on vancomycin and Zosyn ??? 05/28/2024;Patient seen still continues to have copious drainage from his submandibular abscess. Repeated patient cultures only Gram stain was reported from his I D in the emergency department. Also added MRSA PCR screen ??? 05/29/2024;Patient seen his submental abscess still remains indurated with significant drainage. Consult was placed to general surgery for consideration for possible repeat I D Dr. Quiroz surgeon on-call notified 05/31: Patient was evaluated by surgeon Dr. Quiroz. He removed the packing at the bedside and probed the abscess and there were no loculations or fluctuation or more purulent material. Advised less packing in order to start the collapse and close the cavity. No further need of incision or drainage. Final wound culture so CoNS very rare, [place] odontolyticus. The patient had 5 days of IV Zosyn. Discharged on 5 more days of Augmentin. Follow-up in plastic surgery/wound clinic in 1 week 2. Paroxysmal atrial fibrillation ??? Status post previous RFA and cardioversion. Patient currently on amiodarone and metoprolol for rate control and systemic anticoagulation with apixaban 3. Hypertension ??? Blood pressure controlled, home medications continued with dose adjustment as needed 4. Dyslipidemia ???Patient is on statin therapy, continued at home dose 5. BPH with lower urinary obstructive symptoms - Patient treated with tamsulosin 6. Depression with anxiety ??? Patient is on escitalopram did continue 7. Anemia ??? Secondary to chronic disorder monitoring H H and transfuse if patient becomes symptomatic or hemoglobin falls below 7 8. Gout ??? Patient is on allopurinol 9. Chronic congestive heart failure with preserved ejection fraction ??? Echo from 04/04/2021 demonstrated EF of 55% with PASP of 40 mmHg with diastolic dysfunction. Patient is on furosemide. Currently remains euvolemic 10. Obstructive sleep apnea ??? Per history consistent use of PAP therapy encouraged 11. DVT prophylaxis ??? Already on apixaban Discharge medication reconciliation done. Discharge follow-up instructions completed. Discharge process discussed with the patient and all questions were answered to patient's satisfaction. Follow with PCP in 1 to 2 weeks Total time spent, exact 35 minutes on discharge meds reconciliation, examination, coordination of care with nurses and ancillary staff, review of imaging and blood test and discussion with the patient on follow-up instructions. Medications at Discharge Home Medications pravastatin 40 mg tablet 40 mg PO QHS cholesterol 03/02/18 tamsulosin 0.4 mg capsule 0.4 mg PO DAILY prostate 03/05/18 allopurinol 300 mg tablet 300 mg PO DAILY gout 01/05/20 cholecalciferol (vitamin D3) 125 mcg (5,000 unit) capsule 125 mcg PO DAILY supplment 07/19/20 citalopram 10 mg tablet 10 mg PO DAILY depression 07/19/20 lactobacillus combination no.8 3 billion cell capsule 1 cell PO QHS probiotic 11/17/20 metronidazole 0.75 % topical gel 1 applic topical DAILY PRN SKIN 02/27/21 losartan 50 mg tablet 50 mg PO BID bp #180 tabs 11/01/21 furosemide 40 mg tablet See Rx Instructions .Route .COMPLEX water pill #90 tabs 03/17/23 apixaban 5 mg tablet (Eliquis) 5 mg PO BID blood thinner 07/14/23 amiodarone 200 mg tablet 100 mg (1/2 x 200 mg) PO DAILY blood pressure #45 tabs 07/24/23 acetaminophen 650 mg tablet,extended release (Tylenol Arthritis Pain) 650 mg PO Q12H (more content not included)... [facility] 03-19-2023 Discharge summary Note Date/Time March 19, 2023 7:32am [facility] Medical Records Department [address] [place] [address] Instructions for Home/Discharge Instructions 03/19/23 0732 MR#: [id number] Acct: [id number] Name: ANTOINE PEREZ Rep #:[id number] : 1945 77 From: Rudy Corea MD PCP: Dr. Avni Walker MD Status:REG S DC Discharge Instructions Diet Discharge Diet: No restrictions Activity Discharge Activity: Return to Normal Activity and May Not Drive (while taking narcotic pain medications.) Dressing / Incision Call your doctor if you observe: Fever of 101 or Higher Follow Up Care Please Follow Up With: Rudy Corea MD When: Call [phone] for an appointment Test Results: Test results from this visit will be discussed in further detail at your follow-up appointment, if applicable. Discharge Plan Admission Primary Reason for Your Visit: DVIU Attending Provider: Rudy Corea Primary Care Provider: Avni Walker Chi Discharge Orders/Prescriptions Prescriptions: New ciprofloxacin HCl [Cipro] 500 mg tablet 500 mg PO BID Qty: 14 0RF Continued pravastatin 40 mg tablet 40 mg PO QHS citalopram 10 mg tablet 10 mg PO DAILY cholecalciferol (vitamin D3) 125 mcg (5,000 unit) capsule 125 mcg PO DAILY acetaminophen [Tylenol Arthritis Pain] 650 mg tablet extended release 650 mg PO Q12H lactobacillus combination no.8 3 billion cell capsule 1 cell PO QHS metronidazole 0.75 % gel 1 applic topical DAILY PRN (Reason: SKIN) amiodarone 200 mg tablet 100 mg PO DAILY Qty: 45 3RF tamsulosin 0.4 MG capsule 0.4 mg PO DAILY allopurinol 300 MG tablet 300 mg PO DAILY finasteride 5 mg tablet 5 mg PO DAILY Patient Comments: TAKE 1 TABLET BY MOUTH EVERY DAY losartan 50 mg tablet 50 mg PO BID Qty: 180 3RF metoprolol tartrate 25 mg tablet 25 mg PO BID Qty: 180 3RF furosemide 40 mg tablet See Rx Instructions .ROUTE .COMPLEX Qty: 90 3RF Dose Instruction: TAKE 1 TABLET BY MOUTH EVERY DAY Rx Instructions: TAKE 1 TABLET BY MOUTH EVERY DAY Held Xarelto 20 mg tablet 20 mg PO QPM Qty: 30 12RF Hold Instructions: Resume on 04/02/23. Rx Instructions: must administer with evening meal Referrals / Follow Up: Rudy Corea MD [Med Staff - Active Staff] - Avni Walker Chi, MD [Primary Care Provider] - Disposition Disposition (needs filled in before D/C Order can be placed): Home, Self Care 03/19/23 0732<Electronically signed by Rudy Corea MD>Rudy Corea MD CC: Dr. Avni Walker MD ~ Signed [facility] Work Phone: 1(821) 547-821011-01-2023 History and physical note Author Rudy Corea [facility] March 19, 2023 7:31am Note Date/Time March 19, 2023 7 :31am [facility] Medical Records Department [address] [place] [address] History & Physical Exam 03/19/23730 MR#: [id number] Acct: [id number] Name: ANTOINE PEREZ Rep #:[id number] : 1945 77 From: Rudy Corea MD PCP: Dr. Avni Walker MD Status:REG S DC Location: [place] [address] History and Physical 77 yo male comes in and report more difficulty with urination very weak stream, dribbles, slow stream and long time to empty bladder on Tamsulosin daily, this has gradually getting worse. check cysto today has a history of a colo- vesical fistual a long time ago having more trouble voiding and slow stream ALLERGIES: Sulfa MEDICATIONS: Allopurinol 300 mg tablet 1 tablet PO Daily Finasteride 5 mg tablet 1 tablet PO Daily Amiodarone Hcl 200 mg tablet 1 tablet PO Daily Citalopram Hbr 10 mg tablet 1 tablet PO Daily Eliquis 5 mg tablet 1 tablet PO BID Furosemide 40 mg tablet 1 tablet PO Daily Glucosamine & Chondroitin Losartan Potassium 50 mg tablet 1 tablet PO BID Losartan-Hydrochlorothiazide Metoprolol Tartrate 25 mg tablet 1 tablet PO BID Metronidazole 0.75 % gel Mobic Pravastatin Pravastatin Sodium 40 mg tablet 1 tablet PO Daily Tamsulosin Hcl 0.4 mg capsule 1 capsule PO Daily Tylenol Pm Extra Strength Notes: has had pneumonia vaccine Had COVID vaccine Immunizations: None VITAL SIGNS: 02/18/2023 01:39 PM Weight 230 lb / 104.33 kg Height 68 in / 172.72 cm BMI 35.0 kg/m? - BMI Counseling was provided. PHYSICAL EXAM: Constitutional: Well-nourished. No physical deformities. Normally developed. Good grooming. Neck: Neck symmetrical, not swollen. Normal tracheal position. Respiratory: No labored breathing, no use of accessory muscles. Cardiovascular: Normal temperature, normal extremity pulses, no swelling, no varicosities. Lymphatic: No enlargement of neck, axillae, groin. Skin: No paleness, no jaundice, no cyanosis. No lesion, no ulcer, no rash. Neurologic / Psychiatric: Oriented to time, oriented to place, oriented to person. No depression, no anxiety, no agitation. Gastrointestinal: No mass, no tenderness, no rigidity, non obese abdomen. Eyes: Normal conjunctivae. Normal eyelids. Ears, Nose, Mouth, and Throat: Left ear no scars, no lesions, no masses. Right ear no scars, no lesions, no masses. Nose no scars, no lesions, no masses. Normal hearing. Normal lips. Musculoskeletal: Normal gait and station of head and neck. Complexity of Data: Source Of History: Patient Urine Test Review: Urinalysis 07/10/22 07/04/21 12/10/19 07/23/18 03/10/17 03/05/16 02/14/15 02/08/14 PSA Total PSA 3.54 ng/mL 3.94 ng/mL 6.25 ng/mL 4.12 ng/mL 5.27 ng/mL 4.87 mg/dl 5.30ng/ml 4.38 ng/ml Notes [facility] [address] [place] [address]. [place], [address] This test was performed using the TPSA assay method for the Dimension chemistry system. Values obtained with different assay methods cannot be used interchangably. When changing PSA assays in the course of monitoring a patient, additional sequential testing should be carried out to confirm baseline values. [facility] [address] [place] [address]. [place], [address] This test was performed using the TPSA assay method for the Dimension chemistry system. Values obtained with different assay methods cannot be used interchangably. When changing PSA assays in the course of monitoring a patient, additional sequential testing should be carried out to confirm baseline values. [facility] [address] [place] [address]. [place], [address] This test was performed using the TPSA assay method for the Dimension chemistry system. Values obtained with different assay methods cannot be used interchangably. When changing PSA assays in the course of monitoring a patient, additional sequential testing should be carried out to confirm baseline values. [facility] [address] [place] [address]. [place], [address] This test was performed using the TPSA assay method for the Dimension chemistry system. Values obtained with different assay methods cannot be used interchangably. When changing PSA assays in the course of monitoring a patient, additional sequential testing should be carried out to confirm baseline values. [facility] [address] [place], [place], [id number] This test was performed using the TPSA assay method for the Dimension chemistry system. Values obtained with different assay methods cannot be used interchangably. When changing PSA assays in the course of monitoring a patient, additional sequential testing should be carried out to confirm baseline values. Test performed at: [facility] [address] [place], [place] [id number] This test was performed using the TPSA assay method for the Dimension chemistry system. Values obtained with different assay methods cannot be used interchangably. When changing PSA assays in the course of monitoring a patient, additional sequential testing should be carried out to confirm baseline values. This test was performed using the TPSA assay method for the Dimension chemistry system. Values obtained with different assay methods cannot be used interchangably. When changing PSA assays in the course of monitoring a patient, additional sequential testing should be carried out to confirm baseline values. PROCEDURES: Flexible Cystoscopy - 70441 Risks, benefits, and some of the potential complications of the procedure were discussed at length with the patient including infection, bleeding, voiding discomfort, urinary retention, fever, chills, sepsis, and others. All questions were answered. Informed consent was obtained. Antibiotic prophylaxis was given. Sterile technique and intraurethral analgesia were used. Meatus: Normal size. Normal location. Normal condition. Urethra: Severe penile stricture. External Sphincter: Normal. Verumontanum: Normal. Prostate: Non-obstructing. Mild hyperplasia. Bladder Neck: Non-obstructing. Ureteral Orifices: Normal location. Normal size. Normal shape. Effluxed clear urine. Bladder: No trabeculation. Normal mucosa. No stones. 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 03/19/23 0731 <Electronically signed by Rudy Corea MD> Cosigner Signature (if applicable): CC: Dr. Rudy Corea MD; Dr. Avni Walker MD~ Signed [facility] Work Phone: 1(156) 744-590511-01-[address] [facility] 07-10-2020 NotePatient Outreach (COVAMN) ANAANTOINE R ([id number]) 1945 M Date Time Provider Department 07/10/20 WEATHERS, RENZO MEDLEY During your visit today, we recorded the following information about you: Allergies As of Date: 07/10/2020 Noted Allergy Reaction SULFA (SULFONAMIDE ANTIBIOTICS) 02/06/2012 4 - Hives Comments: childhood Date Reviewed: 10/12/2019 Reviewed by: Jeferson Chirinos Ma - Fully Assessed Order(s):SARS-COVID VACCINE 1ST DOSE APPT [[id number]] Order #: [id number] FUTURE Prescriptions as of 07/10/2020 Sig: MELOXICAM [...] TABLET Take 40 mg by mouth every estephania* Problem List As Of Date 07/10/2020 Noted [...] [Z96.651] 07/21/2019 Letter Text Encounter Status:Closed by ELAINE AGUAYO on 07/13/20[facility] Evaluation note* Diagnosis Onset Date Resolution Status Benign essential hypertension chronic Hyperlipidemia chronic Left bundle branch block (LBBB) chronic Typical atrial flutter chron ic Non-ischemic cardiomyopathy resolved [facility] Work Phone: Evaluation note* Diagnosis Onset Date Resolution Status Benign essential hypertension chronic Hyperlipidemia chronic Left bundle branch block (LBBB) chronic Typical atrial flutter chron ic Non-ischemic cardiomyopathy resolved COVID-19 acute [facility] Work Phone: Evaluation note* Diagnosis Onset Date Resolution Status On amiodarone therapy acute Benign essential hypertension chronic Hyperlipidemia chronic Left bundle branch block (LBBB) chronic Typical atrial flutter chron ic Non-ischemic cardiomyopathy resolved [facility] Work Phone: Evaluation noteNo assessment information available [facility] Work Phone: Hospital Discharge instructions Additional Instructions Implant Used?: [facility] Work Phone: Reason for referral (narrative)No reason for referral information availablePrem[facility] Work Phone: Summary Purpose Family History No Family History Records Found Relationship Condition Age at Onset Recorded Date/T bryant son Asthma Unknown Relationship Condition Age at Onset Recorded Date/T bryant son Asthma Unknown mother Hypertension Unknown Hyperlipidemia Unknown Advance Directives No Advanced Directives Records Found Advance Directive Response Recorded Date/ Time Advance Directives Yes March 27, 2020 10:43am Living Will No June 02 7:47pm Power of Disabilities Services Officer No June 02, 2020 7:47pm Advance Directive Response Recorded Date/ Time Name of Medical Power of Disabilities Services Officer March 11, 2023 3:04pm Advance Directives Yes March 27, 2020 10:43am Living Will Yes March 11 3:04pm Power of Disabilities Services Officer Yes March 11, 2023 3:04pm Advance Directive Response Recorded Date/ Time Advance Directives Yes March 27, 2020 10:43am Living Will Yes March 11 3:04pm Power of Disabilities Services Officer Yes March 11, 2023 3:04pm Advance Directive Response Recorded Date/ Time Advance Directives Yes March 27, 2020 10:43am Chief Complaint and Reason for Visit Chief Complaint 3 M FU E ORDER PSA DIAGNOSITC TESTING Reason for Visit Benign essential hyp ertension Hyperlipidemia Left bundle branch block (LBBB) Typical atrial flutter Non-ischemic cardiomyopathy Chief Complaint 6 M FU SCREENING covid19 COVID POS Reason for Visit Benign essential hyp ertension Hyperlipidemia Left bundle branch block (LBBB) Typical atrial flutter Non-ischemic cardiomyopathy COVID-19 Chief Complaint 6 M FU BRADYCARDIA Reason for Visit Benign essential hyp ertension Hyperlipidemia Left bundle branch block (LBBB) Typical atrial flutter Non-ischemic cardiomyopathy Chief Complaint 1 Y FU Direct Visualization internal Ureth Reason for Visit Benign essential hyp ertension Hyperlipidemia Left bundle branch block (LBBB) Typical atrial flutter Non-ischemic cardiomyopathy Chief Complaint 6 M FU PRISON DRUG THERAPY Reason for Visit On amiodarone therap y Benign essential hypertension Hyperlipidemia Left bundle branch block (LBBB) Typical atrial flutter Non-ischemic cardiomyopathy Chief Complaint Admit Date FU VISIT October 12, 2024 1:06p m Additional Source Comments (unrecognized sect ion and content) No Status Records FoundNo Status Records FoundNo Status Records FoundNo Status Records Found INFORMATION SOURCE (unrecogn ized section and content) DATE CREATED AUTHOR 08/26/2020 [facility] DATE CREATED AUTHOR AUTHOR'S ORGANIZ ATION 05/06/2021 [facility] DATE CREATED AUTHOR AUTHOR'S ORGANIZ ATION 06/16/2021 [facility] DATE CREATED AUTHOR AUTHOR'S ORGANIZ ATION 10/20/2024 [facility] Care Teams (unrecognized sec tion and content) Team Status: Active Member Role Status Dates Dr. Avni Walker MD Family Provider Active Dr. Avni Walker MD Primary Care Provider Active Team Status: Inactive Member Role Status Dates Dr. Avni Walker MD Primary Care Provider, Referring Provider Active Ottoniel Saini LAN ENGINEER, LAN ENGINEER-C Attending Provider Active Team Status: Inactive Member Role Status Dates Dr. Avni Walker MD Primary Care Provider Active Dr. Rudy Corea MD Attending Provider, Referr ing Provider Active Team Status: Inactive Member Role Status Dates Dr. Avni Walker MD Primary Care Provider Active Ottoniel Saini LAN ENGINEER, LAN ENGINEER-C Attending Provider, Referring Pro vider Active Team Status: Active Member Role Status Dates Dr. Avni Walker MD Primary Care Provider, Attending Provider Active Team Status: Inactive Member Role Status Dates Dr. Avni Walker MD Primary Care Provider, Attending Provider Active Team Status: Inactive Member Role Status Dates Dr. Avni Walker MD Primary Care Provider Active Start: September 13, 2024 End: September 13, 2024 Dr. Avni Walker MD Attending Provider Active Start: September 13, 2024 End: September 13, 2024 Dr. Avni Walker MD Referring Provider Active Start: September 13, 2024 End: September 13, 2024 Team Status: Inactive Member Role Status Dates Dr. Avni Walker MD Primary Care Provider Active Start: September 30, 2024 End: September 30, 2024 Dr. Avni Walker MD Attending Provider Active Start: September 30, 2024 End: September 30, 2024 Team Status: Inactive Member Role Status Dates Dr. Avni Walker MD Primary Care Provider Active Start: October 12, 2024 End: October 12, 2024 Dr. Avni Walker MD Referring Provider Active Start: October 12, 2024 End: October 12, 2024 NOEMI Hussein Attending Provider Active St art: October 12, 2024 End: October 12, 2024 FOR RECORDS PERTAINING TO PATIENTS WHO ARE [...] BE BASED ON THE PRIMARY CLINICAL RECORDS. [facility]. provides no warranty or guarantee of the accuracy or completeness of information in this document.
== END 2024-12-08 23:59 | disposition home or self-care (01) ==
LOC: POLAB3 14:46
PROVIDERS: PCP Family Medicine Geriatric Medicine; Visit Provider Family Medicine Geriatric Medicine
DX: R21 Rash and other nonspecific skin eruption (principal); W57.XXXA Bitten or stung by nonvenomous insect and other nonvenomous arthropods, initial encounter
CPT/HCPCS: 36415; 86617

== ENCOUNTER → 2025-02-09 | Outpatient (CLI) | payer MEDICARE, BC, SELFPAY ==
--- OUTSIDE RECORDS SUMMARY | 2025-02-09 19:07 | XMS RPT_ITS | CCD ---
Author Organization [facility] Care Team Providers Care Javascript Programmer Name Role Phone RANDY WALKER Primary Care Unavailable EDMUND PARRY Attending Unavailable EDMUND PARRY Admitting Unavailable Dr. Avni Walker Chi Primary Care Provider [phone] Kofi, Dr. Avni Case Referring Provider Dr. Sai Murphy Attending Provider Kofi, Dr. Avni Case Primary Care Provider [phone] Kofi, Dr. Avni Case Referring Provider Roof SETTER OFF, SETTER OFF-C Ottoniel Valenzuela Attending Provider Perez SETTER OFF, SETTER OFF-C Linda Attending Provider Kofi, Dr. Avni Case Primary Care Provider Kofi, Dr. Avni Case Referring Provider Roof SETTER OFF, SETTER OFF-C Ottoniel Valenzuela Attending Provider Kofi, Dr. Avni Case Primary Care Provider Kofi, Dr. Avni Case Referring Provider Roof SETTER OFF, SETTER OFF-C Ottoniel Valenzuela Attending Provider Kofi, Dr. Avni Case Primary Care Provider Kofi, Dr. Avni Case Referring Provider Roof SETTER OFF, SETTER OFF-C Ottoniel Valenzuela Attending Provider KofiDr. Avni wiley MD, Chi Primary Care Provider [phone] Kofi JULIEN, Dr. Avni Case Attending Provider Kofi JULIEN, Dr. Avni Case Referring Provider Jules Shultz Attending Provider Jeffrey, Sai Referring Unavailable Jeffrey, Red Level Attending Unavailable Kofi, Avni Chi Primary Care Unavailable White, Fabiola L Admitting Unavailable White, Fabiola L Consulting Unavailable Kofi, Avni Chi Primary Care Unavailable Bam, Keith Attending Unavailable Ángel Quiroz Consulting Unavailable Kittoe, Jluis Consulting Unavailable White, Fabiola L Admitting Unavailable White, Fabiola L Consulting Unavailable Kittoe, Jluis Attending Unavailable Kofi, Avni Chi Primary Care Unavailable Stanislavabretta, Ángel Consulting Unavailable Kittoe, Jluis Consulting Unavailable Kofi, Avni Chi Referring Unavailable Kofi, Avni Chi Primary Care Unavailable Kofi, Avni Chi Attending Unavailable Kofi, Avni Chi Referring Unavailable Hanshaw, Sharri Consulting Unavailable Kofi, Avni Chi Primary Care Unavailable Kofi, Avni Chi Attending Unavailable Kofi, Avni Chi Referring Unavailable Kofi, Avni Chi Primary Care Unavailable Kofi, Avni Chi Attending Unavailable Kofi, Avni Chi Attending Unavailable Kofi, Avni Chi Primary Care Unavailable Kofi, Avni Chi Referring Unavailable Hanshaw, Sharri Consulting Unavailable Kofi, Avni Chi Primary Care Unavailable Linda Perez NP Attending Unavailable Kofi, Avni Chi Consulting Unavailable Kofi, Avni Chi Referring Unavailable Kofi, Avni Chi Primary Care Unavailable Kofi, Avni Chi Attending Unavailable Kofi, Avni Chi Primary Care Unavailable Torrey Leal Attending Unavailable Jules Perez Attending Unavailable Kofi, Avni Chi Primary Care Unavailable Kofi, Avni Chi Referring Unavailable Kofi, Avni Chi Referring Unavailable Jeffrey, Red Level Attending Unavailable Kofi, Avni Chi Primary Care Unavailable Bam, Keith Attending Unavailable Bam, Keith Consulting Unavailable White, Fabiola L Attending Unavailable Bam, Keith Referring Unavailable Ángel Quiroz Attending Unavailable Kofi, Avni Chi Referring Unavailable Kofi, Avni Chi Primary Care Unavailable Kofi, Avni Chi Attending Unavailable Kofi, Avni Chi Primary Care Unavailable Kofi, Avni Chi Attending Unavailable Allergies Allergy Classification Reported Allergen(s) Allergy Type Date of Onset Reaction(s) Facility (13 sources) Sulfonamides (Antibiotic); 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: [Sulfa (Sulfonamide Antibiotics)] Allergy to substance 06-26-2021 [facility] Medications Current Medications Medication Drug Class(es) Dates Sig (Normalized) Sig (Original) 8 hr acetaminophen 650 mg extended release oral tablet (15 sources) Start: 11-17-2020 End: 03-09-2024 take 1 tablet by mouth every twelve hours as needed for pain Acetaminophen (Tylenol Arthritis Pain) 650 mg tablet extended release Active 650 mg PO Q12H as needed for fever or pain March 09, 2024 1:03pm allopurinol 300 mg oral tablet (12 sources) Xanthine Oxidase Inhibitor Start: 01-05-2020 take 1 tablet by mouth once daily Allopurinol 300 MG tablet Active 300 mg PO DAILY January 05, 2020 12:00am gout apixaban 5 mg oral tablet (20 sources) Factor Xa Inhibitor Start: 07-14-2023 take 1 tablet by mouth twice daily Apixaban (Eliquis) 5 mg tablet Active 5 mg PO TWICE A DAY July 14, 2023 1:00am blood thinner Start: 01-09-2020 End: 08-28-2022 take 1 tablet by mouth twice daily Apixaban 5 mg tablet Discontinued 5 mg PO TWICE A DAY 60 11 January 22, 2022 12:00pm August 28, 2022 9:38am cholecalciferol 0.125 mg oral capsule (12 sources) Vitamin D Start: 07-19-2020 take 1 capsule by mouth once daily Cholecalciferol (Vitamin D3) 125 mcg (5,000 unit) capsule Active 125 ug PO DAILY July 19, 2020 1:00am supplment citalopram 10 mg oral tablet (12 sources) Serotonin Reuptake Inhibitor Start: 07-19-2020 take 1 tablet by mouth once daily Citalopram 10 mg tablet Active 10 mg PO DAILY July 19, 2020 1:00am depression Lactobacillus Combination No.8 (9 sources) Start: 11-17-2020 Lactobacillus Combination No.8 Active CELL PO November 17, 2020 10:40am Start: 11-17-2020 Lactobacillus Combination No.8 Active 1 CELL PO AT BEDTIME November 17, 2020 12:00am Lactobacillus Combination No.8 3 billion cell capsule (3 sources) Start: 11-17-2020 take 3 capsules by mouth at bedtime Lactobacillus Combination No.8 3 billion cell capsule Active 1 NMA PO AT BEDTIME November 17, 2020 12:00am probiotic Start: 11-17-2020 take 3 capsules by m outh at bedtime Lactobacillus Combination No.8 3 billion cell capsule Active 1 NMA PO AT BEDTIME November 17, 2020 12:00am metoprolol tartrate 25 mg oral tablet (20 sources) beta-Adrenergic Odilia Start: 10-12-2024 Metopr olol Tartrate 25 mg tablet Active 12.5 mg PO TWICE A DAY 90 October 12, 2024 1:47pm bp Start: 05-07-2021 End: 10-12-2024 take 1 tablet by mouth twice daily Metoprolol Tartrate 25 mg tablet Discontinued 25 mg PO TWICE A DAY 180 May 10, 2024 10:55am October 12, 2024 1:48pm bp Start: 02-27-2021 End: 05-07-2021 Metoprolol Tartrate 50 mg ta blet Discontinued 25 mg PO TWICE A DAY 180 3 February 27, 2021 11:37am May 07, 2021 [...] 02, 2020 1:00am June 13, 2020 10:44am ROSEACA Start: 06-02-2020 End: 06-13-2020 Metronidazole Discontinued 1 APPLIC TOPICAL TWICE A DAY June 02, 2020 1:00am June 13, 2020 10:44am pravastatin sodium 40 mg oral tablet (12 sources) HMG-CoA Reductase Inhibitor Start: 03-02-2018 take 1 tablet by mouth at bedtime Pravastatin 40 mg tablet Active 40 mg PO AT BEDTIME March 02, 2018 12:00am cholesterol tamsulosin hydrochloride 0.4 mg oral capsule (12 sources) alpha-Adrenergic Odilia Start: 03-05-2018 take 1 capsule by mouth once daily Tamsulosin 0.4 MG capsule Active 0.4 mg PO DAILY March 05, 2018 12:00am prostate Completed/Discontinued Medications Medication Drug Class(es) Dates Sig (Normalized) Sig (Original) amiodarone hydrochloride 200 mg oral tablet (20 sources) Antiarrhythmic Start: 06-27-2022 End: 06-08-2024 Amiodarone 200 mg tablet Discontinued 100 mg PO DAILY 45 July 24, 2023 9:09am June 08, 2024 1:30pm blood pressure Start: 06-27-2022 End: 07-24-2023 take 100 mg by mouth once daily Amiodarone Discontinue d 100 MG PO DAILY 45 June 27, 2022 4:02pm July 24, 2023 9:09am Start: 12-17-2021 End: 06-27-2022 take 1 tablet by mouth once daily Amiodarone 200 mg tablet Discontinued 200 mg PO DAILY 90 December 17, 2021 11:09am June 27, 2022 4:02pm Start: 11-22-2020 End: 12-17-2021 take 1 tablet by mouth twice daily, then take 1 tablet by mouth once daily Amiodarone 200 mg tablet Discontinued 200 mg PO DAILY 30 December 07, 2020 2:10pm December 17, 2021 11:09am 0ne tablet by mouth twice daily then one tablet by mouth daily. Start: 06-02-2020 End: 06-03-2020 take 1 tablet by mouth once daily Amiodarone 200 MG tablet Discontinued 200 mg PO DAILY June 02, 2020 1:00am June 03, 2020 1:24pm AFIB Start: 02-15-2020 End: 04-21-2020 take 1 tablet by mouth once daily Amiodarone 200 mg tablet Discontinued 200 mg PO DAILY March 22, 2020 1:00am April 21, 2020 10:51am amoxicillin 875 mg / clavulanate 125 mg oral tablet (3 sources) Penicillin-class Antibacterial Start: 05-31-2024 End: 10-12-2024 Amoxicillin-Pot Clavulanate 875-125 mg tablet Discontinued 1 {tbl} PO TWICE A DAY 10 5 0 May 31, 2024 1:00am October 12, 2024 1:33pm bee pollen 550 mg oral capsule (12 sources) Start: 01-05-2020 End: 01-09-2020 take 1 capsule by mouth once daily Bee Pollen 550 MG capsule Discontinued 550 mg PO DAILY January 05, 2020 12:00am January 09, 2020 12:04pm supplement cephalexin 500 mg oral capsule (3 sources) Cephalosporin Antibacterial Start: 05-23-2024 End: 05-31-2024 take 1 capsule by mouth every six hours Cephalexin 500 mg capsule Discontinued 500 mg PO EVERY 6 HOURS 40 0 May 23, 2024 1:00am May 31, 2024 1:55pm antibiotic Cholecalciferol (Vitamin D3) (Vitamin D3) 5,000 UNIT capsule (12 sources) Start: 01-05-2020 End: 07-19-2020 take 1 [...] 05, 2020 12:00am July 19, 2020 10:57am supplement Start: 01-05-2020 End: 07-19-2020 take 1 capsule [...] 2020 10:57am ciprofloxacin 500 mg oral tablet (7 sources) Quinolone Antimicrobial Start: 03-19-2023 End: 07-14-2023 take 1 tablet by mouth twice daily Ciprofloxacin Hcl (Cipro) 500 mg tablet Discontinued 500 mg PO TWICE A DAY 14 March 19, 2023 12:00am July 14, 2023 3:15pm digoxin 0.125 mg oral tablet (20 sources) Cardiac Glycoside Start: 01-09-2020 End: 02-11-2020 take 1 tablet by mouth once daily Digoxin 125 mcg (0.125 mg) tablet Discontinued 125 ug PO DAILY 17 04February 03, 2020 9:15am February 11, 2020 11:42am finasteride 5 mg oral tablet (7 sources) 5-alpha Reductase Inhibitor Start: 03-11-2023 End: 07-14-2023 take 1 tablet by mouth once daily Finasteride 5 mg tablet Discontinued 5 mg PO DAILY March 11, 2023 12:00am July 14, 2023 3:16pm furosemide 40 mg oral tablet (20 sources) Loop Diuretic Start: 01-09-2020 End: 03-17-2023 take 1 tablet by mouth once daily Furosemide 40 mg tablet Discontinued 40 mg PO DAILY 17 04February 04, 2022 4:49pm March 17, 2023 8:11am hydroCHLOROthiazide 12.5 mg oral tablet (20 sources) Thiazide Diuretic Start: 06-02-2020 End: 06-03-2020 take 1 tablet by mouth once daily Hydrochlorothiazide 12.5 MG tablet Discontinued 12.5 mg PO DAILY June 02, 2020 1:00am June 03, 2020 1:30pm FLUID Start: 01-05-2020 End: 01-09-2020 take 1 tablet by mouth once daily Hydrochlorothiazide 12.5 mg tablet Discontinued 12.5 mg PO DAILY January 05, 2020 12:00am January 09, 2020 12:04pm bp losartan potassium 50 mg oral tablet (20 sources) Angiotensin 2 Receptor Odilia Start: 10-03-2020 End: 11-17-2020 take 1 tablet by mouth at bedtime Losartan 50 mg tablet Discontinued 50 mg PO AT BEDTIME October 03, 2020 11:28am November 17, 2020 10:40am bp Start: 08-03-2020 End: 11-01-2021 take 1 tablet by mouth twice daily Losartan 50 mg tablet Discontinued 50 mg PO TWICE A DAY November 17, 2020 10:38am November 17, 2020 11:20am bp Start: 03-02-2018 End: 08-03-2020 take 1 tablet by mouth once daily Losartan 50 mg tablet Discontinued 50 mg PO DAILY March 02, 2018 12:00am August 03, 2020 5:04pm bp meloxicam 15 mg oral tablet (12 sources) Nonsteroidal Anti-inflammatory Drug Start: 03-02-2018 End: 01-09-2020 take 1 tablet by mouth once daily Meloxicam 15 mg tablet Discontinued 15 mg PO DAILY March 02, 2018 12:00am January 09, 2020 12:04pm pain microencapsulated potassium chloride 20 meq extended release oral tablet (3 sources) Start: 05-27-2024 End: 10-12-2024 Potassium Chloride (Klor-Con M20) 20 mEq tablet,ER particles/brent ls Discontinued 20 meq PO DAILY May 27, 2024 1:00am October 12, 2024 1:36pm replacement rivaroxaban 20 mg oral tablet (20 sources) Factor Xa Inhibitor Start: 08-28-2022 End: 07-14-2023 take 1 tablet by mouth once daily at dinner Rivaroxaban (Xarelto) 20 mg tablet Discontinued 20 mg PO EVERY EVENING 17 05December 23, 2022 9:11am July 14, 2023 3:17pm On Hold: Resume on 04/02/23. must administer with evening meal Problems Active Problems Problem Classification Problem Date Documented Da te Episodic/Chronic Cardiac dysrhythmias (20 sources) Typical atrial flutter; 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: [Typical atrial flutter] Chronic Comment on above: RFA 08/03/2020 Cardiac dysrhythmias (9 sources) Bradycardia; 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: [Bradycardia, unspecified] 08-28-2022 Episodic Conduction disorders (20 sources) Left bundle branch block; 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: [Left bundle-branch block, unspecified] Chronic Congestive heart failure; nonhypertensive (13 sources) Chronic systolic heart failure; 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: [Chronic systolic (congestive) heart failure] 06-02-2020 Chronic Deficiency and other anemia (12 sources) Anemia; 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: [Anemia, unspecified] 02-26-2021 Episodic Disorders of lipid metabolism (20 sources) Hyperlipidemia; 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: [Hyperlipidemia, unspecified] Chronic Essential hypertension (20 sources) Benign essential hypertension; 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: [Essential (primary) hypertension] Onset: 09-15-2024 Chronic Malaise and fatigue (20 sources) Fatigue; 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: [Other fatigue] 06-26-2021 Episodic Nonspecific chest pain (12 sources) Chest pain; 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: [Chest pain, unspecified] 07-17-2020 Episodic Other aftercare (13 sources) Drug therapy finding; 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: [Other shelter (current) drug therapy] 12-07-2020 Episodic Other aftercare (3 sources) Long-term current use of anticoagulant; 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] 06-08-2024 Episodic Other circulatory disease (3 sources) H/O: atrial fibrillation; 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: [Personal history of other diseases of the circulatory system] 05-26-2024 Episodic Other circulatory disease (1 source) Personal history of other diseases of the circulatory system; 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: [Personal history of other diseases of the circulatory system] Onset: 10-12-2024 Episodic Other connective tissue disease (12 sources) Recurrent falls ; 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: [Repeated falls] 06-26-2021 Episodic Other injuries and conditions due to external causes (3 sources) Hematoma; 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: [Other injury of unspecified body region, initial encounter] 05-31-2024 Episodic Other lower respiratory disease (12 sources) Dyspnea on exertion; 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: [Dyspnea, unspecified] 06-26-2021 Episodic Other skin disorders (3 sources) Neck swelling; 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: [Localized swelling, mass and lump, neck] 05-20-2024 Episodic Hayley-; endo-; and myocarditis; cardiomyopathy (except that caused by tuberculosis or sexually transmitted disease) (20 sources) Cardiomyopathy; 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: [Other cardiomyopathies] Chronic Residual codes; unclassified (3 sources) Past history of procedure; 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: [Other specified postprocedural states] 05-26-2024 Episodic Unclassified (1 source) Cough, unspecified; 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: [Cough, unspecified] Onset: 10-04-2024 Viral infection (14 sources) Disease caused by 2019-nCoV; 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: [COVID-19] Episodic Past or Other Problems Problem Classification Problem Date Documented Date Episodic/Chronic Lymphadenitis (1 source) Localized enlarged lymph nodes; 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: [Localized enlarged lymph nodes] Onset: 05-14-2024 Episodic Other aftercare (4 sources) Other shelter (current) drug therapy; 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: [Long-term (current) use of other medications] Onset: 03-31-2024 07-14-2023 Episodic Other skin disorders (2 sources) Localized swelling, mass and lump, neck; 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: [Localized swelling, mass and lump, neck] Onset: 06-02-2024 Episodic Residual codes; unclassified (12 sources) History of radiofrequency ablation operation for arrhythmia; 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: [Other specified postprocedural states] Onset: 08-03-2020 06-25-2021 Episodic Skin and subcutaneous tissue infections (8 sources) Abscess; 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: [Cutaneous abscess, unspecified] Onset: 06-11-2024 06-08-2024 Episodic Results Test Name Value Interpretation Reference Range Facility Lyme Antibodies,Rosanne Bishop Lyme Additional Comment Normal . [facility] Comment on above: Result Comment: Per CDC criteria, the Lyme IgG Immunoblot is interpreted as positive if IgG-class antibodies are detected to 5 or more B. burgdorferi proteins, and the Lyme IgM Immunoblot is interpreted as positive if IgM-class antibodies are detected to 2 or more B. burgdorferi proteins. Immunoblot patterns not meeting these criteria should not be interpreted as positive. Epitopes from certain B. burgdorferi proteins (e.g., p41) are conserved across other bacteria, which may lead to the detection of IgM-and/or IgG class antibodies on the Lyme disease immunoblots in patients without Lyme disease. Immunoblot should only be ordered on specimens that are positive or equivocal by an FDA-licensed Lyme disease antibody screening test (e.g., EIA). Results of the Lyme IgM immunoblot should not be considered in patients with 30 or more days of symptoms. Performed at: [address] [id number] Hose Cementer: Liliana Jameson MD, Phone: [phone] Performed By: #### L 203.1824, M100340, L500.4100, L503.6620, L501.9520 #### [facility] [address] [place], [address] LYME IgG INTERP Negative Normal Negative [facility] Comment on above: Performed By: #### L 500.2500, L500.3400, L500.4100, L503.6620, L501.9520 #### [facility] [address] [place], [address] LYME IgM INTERP Negative Normal Negative [facility] Comment on above: Result Comment: Plea se Note: Lyme immunoblot alone is not recommended for the diagnosis of Lyme disease. Current guidelines recommend the use of a two-tiered approach to Lyme serology testing to improve the sensitivity and specificity of testing. [facility] test code 994745 Lyme Disease Serology with Reflex to aid in the diagnosis of Lyme Disease. Performed By: #### L 500.2500, L500.3400, L500.4100, L503.6620, L501.9520 #### [facility] [address] [place], [address] P18 Ab Absent Normal . [facility] Comment on above: Performed By: #### L 500.2500, L500.3400, L500.4100, L503.6620, L501.9520 #### [facility] [address] [place], [address] P23 Ab Absent Normal . [facility] Comment on above: Performed By: #### L 500.2500, L500.3400, L500.4100, L503.6620, L501.9520 #### [facility] [address] [place], [address] P28 Ab Absent Normal . [facility] Comment on above: Performed By: #### L 500.2500, L500.3400, L500.4100, L503.6620, L501.9520 #### [facility] [address] [place], [address] P30 Ab Absent Normal . [facility] Comment on above: Performed By: #### L 500.2500, L500.3400, L500.4100, L503.6620, L501.9520 #### [facility] [address] [place], [address] P39 Ab Absent Normal . [facility] Comment on above: Performed By: #### L 500.2500, L500.3400, L500.4100, L503.6620, L501.9520 #### [facility] [address] [place], [address] P39 Ab Present Normal . [facility] Comment on above: Performed By: #### L 500.2500, L500.3400, L500.4100, L503.6620, L501.9520 #### [facility] [address] [place], [address] P41 Ab Present Normal . [facility] Comment on above: Performed By: #### L 500.2500, L500.3400, L500.4100, L503.6620, L501.9520 #### [facility] [address] [place], [address] P41 Ab Absent Normal . [facility] Comment on above: Performed By: #### L 500.2500, L500.3400, L500.4100, L503.6620, L501.9520 #### [facility] [address] [place], [address] P45 Ab Absent Normal . [facility] Comment on above: Performed By: #### L 500.2500, L500.3400, L500.4100, L503.6620, L501.9520 #### [facility] [address] [place], [address] P58 Ab Present Normal . [facility] Comment on above: Performed By: #### L 500.2500, L500.3400, L500.4100, L503.6620, L501.9520 #### [facility] [address] [place], [address] P66 Ab Absent Normal . [facility] Comment on above: Performed By: #### L 500.2500, L500.3400, L500.4100, L503.6620, L501.9520 #### [facility] [address] [place], [address] P93 Ab Present Normal . [facility] Comment on above: Performed By: #### L 500.2500, L500.3400, L500.4100, L503.6620, L501.9520 #### [facility] [address] [place], [address] Cardiology Visit Reporton Cardiology Visit Report [facility] [address] [place] [address] OFFICE VISIT Date of Service: 10/12/24 MR#: [id number] Acct: [id number] Name: ANTOINE PEREZ Rep #: [id number] : 1945 Provider: NOEMI Hussein Age/Sex: 78/M Location: [facility] Status: Signed HPI HPI History of Present Illness Details: Antoine Perez is an 78-year-old male who presents to office today for follow-up for monitoring his cardiovascular health. Patient was admitted to the [facility] 01/05/2020 and was found to be in [...] where he was ruled out for an OK, underwent stress test which did not demonstrate any evidence of ischemia. Sleep study demonstrated mild obstructive sleep apnea. 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 Normal [facility] Influenza virus A and B and SARS-CoV-2 (COVID-19) and Respiratory syncytial virus RNAOrdered By: Avni Walker on 09-30-2024 SARS-CoV-2 (COVID-19) RNA PADDY+probe Ql (Unsp spec) [facility] M100.678on 09-30-2024 M100.678 Pending SARS-CoV-2 (COVID 19) Negative INFLUENZA A Negative INFLUENZA B Negative RSV PCR Negative Normal [facility] Comment on above: Performed By: #### L 500.2500, L500.3400, L500.4100, L503.6620, L501.9520 #### [facility] [address] [place], [address] Absolute lymphocyte countOrd ered By: Avni Walker on 09-13-2024 Lymphocytes Auto (Unsp spec) [#/Vol] 1.61 10*3/uL 0.83-4.51 [facility] Absolute neutrophil countOrd ered By: Avni Abreuok on 09-13-2024 Neutrophils (Bld) [#/Vol] 5.2 10*3/uL 2.0-7.7 [facility] Anion gap in Serum or Plasma Ordered By: Avni Walker on 09-13-2024 Anion gap [Moles/Vol] 13 mmol/L 5- [facility] Automated lymphocyte count a s percentage of total leukocytesOrdered By: Avni Kofi on 09-13-2024 Lymphocytes/100 WBC Auto (Unsp spec) 19.6 % - [facility] BUN/creatinine ratioOrdered By: Avni Kofi on 09-13-2024 Urea nitrogen/Creatinine [Mass ratio] 31.3 mg/mg High 10-20 [facility] Basophil percentageOrdered B y: Avni Kofi on 09-13-2024 Basophils/100 WBC (Bld) 0.2 % 0-1 [facility] Bilirubin, totalOrdered By: Avni Walker on 09-13-2024 Bilirubin [Mass/Vol] 0.38 mg/dL 0.00-1.30 [facility] CBC W/Diff, Automatedon 08-18 Absolute Lymph 1.61 X10 3/uL Normal 0.83-4.51 [facility] Comment on above: Performed By: #### L 500.2500, L500.3400, L500.4100, L503.6620, L501.9520 #### [facility] [address] [place], [address] Absolute Neut 5.2 X10 3/uL Normal 2.0-7.7 [facility] Comment on above: Performed By: #### L 500.2500, L500.3400, L500.4100, L503.6620, [id number] #### [facility] [address] [place], [address] Basophils/100 WBC (Bld) 0.2 % Normal 0-1 [facility] Comment on above: Performed By: #### L 500.2500, L500.3400, L500.4100, L503.6620, [id number] #### [facility] [address] [place], [address] Eosinophils/100 WBC (Bld) 6.5 % High 0-5 [facility] Comment on above: Performed By: #### L 500.2500, L500.3400, L500.4100, L503.6620, [id number] #### [facility] [address] [place], [address] Erythrocyte distribution width (RBC) [Ratio] 13.7 % Normal 11.6-14.6 [facility] Comment on above: Performed By: #### L 500.2500, L500.3400, L500.4100, L503.6620, [id number] #### [facility] [address] [place], [address] Hematocrit (Bld) [Volume fraction] 39.3 % Low 40-54 [facility] Comment on above: Performed By: #### L 500.2500, L500.3400, L500.4100, L503.6620, [id number] #### [facility] [address] [place], [address] Hemoglobin (Bld) [Mass/Vol] 13.0 g/dL Normal 13.0-16.5 [facility] Comment on above: Performed By: #### L 500.2500, L500.3400, L500.4100, L503.6620, [id number] #### [facility] [address] [place], [address] IG% 0.900 Normal 0.0-0.9 [facility] Comment on above: Result Comment: IG% - Immature Granulocytes (promyelocytes, myelocytes and metamyelocytes) > 1% indicates that a LEFT SHIFT is Present. Performed By: #### L 500.2500, L500.3400, L500.4100, L503.6620, L501.9520 #### [facility] [address] [place], [address] Lymphocytes/100 WBC (Bld) 19.6 % Normal 19-41 [facility] Comment on above: Performed By: #### L 500.2500, L500.3400, L500.4100, L503.6620, [id number] #### [facility] [address] [place], [address] MCH (RBC) [Entitic mass] 33.3 pg High 27.0-32.0 [facility] Comment on above: Performed By: #### L 500.2500, L500.3400, L500.4100, L503.6620, [id number] #### [facility] [address] [place], [address] MCHC (RBC) [Mass/Vol] 33.1 g/dL Normal 32-36 [facility] Comment on above: Performed By: #### L 500.2500, L500.3400, L500.4100, L503.6620, [id number] #### [facility] [address] [place], [address] MCV (RBC) [Entitic vol] 100.8 fL High 80-94 [facility] Comment on above: Performed By: #### L 500.2500, L500.3400, L500.4100, L503.6620, [id number] #### [facility] [address] [place], [address] Monocytes/100 WBC (Bld) 9.0 % Normal 0-10 [facility] Comment on above: Performed By: #### L 500.2500, L500.3400, L500.4100, L503.6620, [id number] #### [facility] [address] [place], [address] Neutrophils/100 WBC (Bld) 63.8 % Normal 47-70 [facility] Comment on above: Performed By: #### L 500.2500, L500.3400, L500.4100, L503.6620, [id number] #### [facility] [address] [place], [address] Nucleated RBC (Bld) [#/Vol] 0 10*3/uL Normal 0-5 [facility] Comment on above: Performed By: #### L 500.2500, L500.3400, L500.4100, L503.6620, [id number] #### [facility] [address] [place], [address] Platelet mean volume (Bld) [Entitic vol] 13.0 fL High 6.2-12.0 [facility] Comment on above: Performed By: #### L 500.2500, L500.3400, L500.4100, L503.6620, [id number] #### [facility] [address] [place], [address] Platelets (Bld) [#/Vol] 173 10*3/uL Normal 150-450 [facility] Comment on above: Performed By: #### L 500.2500, L500.3400, L500.4100, L503.6620, [id number] #### [facility] [address] [place], [address] RBC (Bld) [#/Vol] 3.90 10*6/uL Low 4.6-6.2 [facility] Comment on above: Performed By: #### L 500.2500, L500.3400, L500.4100, L503.6620, L501.9520 #### [facility] [address] [place], [address] RDW SD 50.8 fl High 35.1-43.9 [facility] Comment on above: Performed By: #### L 500.2500, L500.3400, L500.4100, L503.6620, [id number] #### [facility] [address] [place], [address] WBC (Bld) [#/Vol] 8.2 10*3/uL Normal 4.4-11.0 [facility] Comment on above: Performed By: #### L 500.2500, L500.3400, L500.4100, L503.6620, L501.9520 #### [facility] [address] [place], [address] Carbon dioxide, total [Moles /volume] in Central venous bloodOrdered By: Avni Walker on 09-13-2024 CO2 [Moles/Vol] 24.4 mmol/L 21.0-32.0 [facility] Chloride assayOrdered By: Curtis Walker on 09-13-2024 Chloride [Moles/Vol] 103 mmol/L 98-108 [facility] Comprehensive Metabolic Prof ilon 09-13-2024 Albumin [Mass/Vol] 4.1 g/dL Normal 3.4-4.8 [facility] Comment on above: Performed By: #### L 500.2500, L500.3400, L500.4100, L503.6620, L501.9520 #### [facility] [address] [place], [address] Albumin/Globulin [Mass ratio] 1.3 {ratio} Normal 0.9-2.4 [facility] Comment on above: Performed By: #### L 500.2500, L500.3400, L500.4100, L503.6620, L501.9520 #### [facility] [address] [place], [address] ALK PHOS 83 U/L Normal 40-129 [facility] Comment on above: Performed By: #### L 500.2500, L500.3400, L500.4100, L503.6620, L501.9520 #### [facility] [address] [place], [address] ALT [Catalytic activity/Vol] 19 U/L Normal <=46 [facility] Comment on above: Performed By: #### L 500.2500, L500.3400, L500.4100, L503.6620, L501.9520 #### [facility] [address] [place], [address] AST [Catalytic activity/Vol] 20 U/L Normal <=37 [facility] Comment on above: Performed By: #### L 500.2500, L500.3400, L500.4100, L503.6620, L501.9520 #### [facility] [address] [place], [address] Bilirubin [Mass/Vol] 0.38 mg/dL Normal 0.00-1.30 [facility] Comment on above: Performed By: #### L 500.2500, L500.3400, L500.4100, L503.6620, L501.9520 #### [facility] [address] [place], [address] BUN/CRE 31.3 RATIO High 10-20 [facility] Comment on above: Performed By: #### L 500.2500, L500.3400, L500.4100, L503.6620, L501.9520 #### [facility] [address] [place], [address] Calcium [Mass/Vol] 9.4 mg/dL Normal 7.6-11.0 [facility] Comment on above: Performed By: #### L 500.2500, L500.3400, L500.4100, L503.6620, L501.9520 #### [facility] [address] [place], [address] Chloride [Moles/Vol] 103 mmol/L Normal 98-108 [facility] Comment on above: Performed By: #### L 500.2500, L500.3400, L500.4100, L503.6620, L501.9520 #### [facility] [address] [place], [address] CO2 [Moles/Vol] 24.4 mmol/L Normal 21.0-32.0 [facility] Comment on above: Performed By: #### L 500.2500, L500.3400, L500.4100, L503.6620, L501.9520 #### [facility] [address] [place], [address] Creatinine [Mass/Vol] 0.76 mg/dL Normal 0.70-1.20 [facility] Comment on above: Performed By: #### L 500.2500, L500.3400, L500.4100, L503.6620, L501.9520 #### [facility] [address] [place], [address] GAP 13 Normal 5-15 [facility] Comment on above: Performed By: #### L 500.2500, L500.3400, L500.4100, L503.6620, L501.9520 #### [facility] [address] [place], [address] GFR/1.73 sq M.predicted among non-blacks MDRD (S/P/Bld) [Vol rate/Area] 91 mL/min/{1.73_m2} Normal >60 [facility] Comment on above: Result Comment: mL/m in/1.73m2 CKD-EPI Creatinine Equation (2020) Performed By: #### L 500.2500, L500.3400, L500.4100, L503.6620, L501.9520 #### [facility] [address] [place], [address] Globulin (S) [Mass/Vol] 3.2 g/dL Normal 2.2-4.2 [facility] Comment on above: Performed By: #### L 500.2500, L500.3400, L500.4100, L503.6620, L501.9520 #### [facility] [address] [place], [address] Glucose [Mass/Vol] 115 mg/dL High 70-99 [facility] Comment on above: Performed By: #### L 500.2500, L500.3400, L500.4100, L503.6620, L501.9520 #### [facility] [address] [place], [address] Potassium [Moles/Vol] 3.9 mmol/L Normal 3.3-5.1 [facility] Comment on above: Performed By: #### L 500.2500, L500.3400, L500.4100, L503.6620, L501.9520 #### [facility] [address] [place], [address] Sodium [Moles/Vol] 140 mmol/L Normal 133-145 [facility] Comment on above: Performed By: #### L 500.2500, L500.3400, L500.4100, L503.6620, L501.9520 #### [facility] [address] [place], [address] T PROT 7.3 g/dL Normal 5.9-8.4 [facility] Comment on above: Performed By: #### L 500.2500, L500.3400, L500.4100, L503.6620, L501.9520 #### [facility] [address] [place], [place], [address] Urea nitrogen [Mass/Vol] 24 mg/dL High 4-19 [facility] Comment on above: Performed By: #### L 500.2500, L500.3400, L500.4100, L503.6620, L501.9520 #### [facility] [address] [place], [address] Eosinophil percentageOrdered By: Avni Walker on 09-13-2024 Eosinophils/100 WBC (Bld) 6.5 % High 0-5 [facility] Erythrocyte distribution wid th ratioOrdered By: Avni Walker on 09-13-2024 Erythrocyte distribution width (RBC) [Ratio] 13.7 % 11.6-14.6 [facility] Erythrocyte distribution wid th standard deviationOrdered By: Avni Walker 09-13-2024 Erythrocyte distribution width (RBC) [Ratio] 50.8 fl High 35.1-43.9 [facility] Glomerular filtration rate ( GFR) estimation/1.73 sq m using serum, plasma, or whole bOrdered By: Avni Walker on 09-13-2024 GFR/1.73 sq M.predicted among non-blacks MDRD (S/P/Bld) [Vol rate/Area] 91 mL/min/{1.73_m2} >60 [facility] Comment on above: mL/min/1.73m2 CKD-EP I Creatinine Equation (2020) Hematocrit Auto (Bld) [Volum e fraction]Ordered By: Avni Walker on 09-13-2024 Hematocrit (Bld) [Volume fraction] 39.3 % Low 40-54 [facility] Hemoglobin measurementOrdere d By: Avni Walker 09-13-2024 Hemoglobin (Bld) [Mass/Vol] 13.0 g/dL 13.0-16.5 [facility] Immature granulocytes/100 WB C Auto (Bld)Ordered By: Avni Walker 09-13-2024 Immature granulocytes/100 WBC (Bld) 0.900 % 0.0-0.9 [facility] Comment on above: IG% - Immature Granu locytes (promyelocytes, myelocytes and metamyelocytes) > 1% indicates that a LEFT SHIFT is Present. Laboratory - Chemistry and C hemistry - challengeOrdered By: Avni Walker on 09-13-2024 AST [Catalytic activity/Vol] 20 U/L <38 [facility] MCV (mean corpuscular volume ) determinationOrdered By: Avni Walker 09-13-2024 MCV (RBC) [Entitic vol] 100.8 fL High 80-94 [facility] Mean corpuscular hemoglobin (MCH) determinationOrdered By: Avni Walker 09-13-2024 MCH (RBC) [Entitic mass] 33.3 pg High 27.0-32.0 [facility] Mean corpuscular hemoglobin concentration (MCHC) determinationOrdered By: Avni Walker 09-13-2024 MCHC (RBC) [Mass/Vol] 33.1 g/dL 32-36 [facility] Mean platelet volume determi nationOrdered By: Avni Walker 09-13-2024 Platelet mean volume (Bld) [Entitic vol] 13.0 fL High 6.2-12.0 [facility] Monocyte percentageOrdered B y: Avni Walker on 09-13-2024 Monocytes/100 WBC (Bld) 9.0 % 0-10 [facility] Neutrophil percentageOrdered By: Avni Walker 09-13-2024 Neutrophils/100 WBC (Bld) 63.8 % 47-70 [facility] Nucleated red blood cell per centageOrdered By: Avni Walker 09-13-2024 Nucleated RBC/100 WBC (Bld) [Ratio] 0 % 0-5 [facility] Platelet countOrdered By: Curtis Walker on 09-13-2024 Platelets (Bld) [#/Vol] 173 10*3/uL 150-450 [facility] Potassium measurement (mass/ volume)Ordered By: Avni Walker on 09-13-2024 Potassium (Unsp spec) [Mass/Vol] 3.9 mmol/L 3.3-5.1 [facility] RBC Auto (Bld) [#/Vol]Ordere d By: Avni Walker on 09-13-2024 RBC (Bld) [#/Vol] 3.90 10*6/uL Low 4.6-6.2 [facility] Serum creatinine measurement (mass/volume)Ordered By: Avni Walker on 09-13-2024 Creatinine [Mass/Vol] 0.76 mg/dL 0.70-1.20 [facility] Serum globulin measurementOr dered By: Avni Walker 09-13-2024 Globulin (S) [Mass/Vol] 3.2 g/dL 2.2-4.2 [facility] Serum glucose measurement (m ass/volume)Ordered By: Avni Walker 09-13-2024 Glucose [Mass/Vol] 115 mg/dL High 70-99 [facility] Serum or plasma alanine sparks otransferase (ALT) measurementOrdered By: Avni Walker 09-13-2024 ALT [Catalytic activity/Vol] 19 U/L <47 [facility] Serum or plasma albumin brittnee urement (mass/volume)Ordered By: Avni Walker 09-13-2024 Albumin [Mass/Vol] 4.1 g/dL 3.4-4.8 [facility] Serum or plasma albumin/glob ulin mass ratioOrdered By: Avni Walker 09-13-2024 Albumin/Globulin [Mass ratio] 1.3 {ratio} 0.9-2.4 [facility] Serum or plasma alkaline mallory sphatase measurementOrdered By: Avni Walker 09-13-2024 ALP [Catalytic activity/Vol] 83 U/L 40-129 [facility] Serum or plasma calcium brittnee urement (mass/volume)Ordered By: Avni Walker 09-13-2024 Calcium [Mass/Vol] 9.4 mg/dL 7.6-11.0 [facility] Serum or plasma urea nitroge n measurement (mass/volume)Ordered By: Avni Walker 09-13-2024 Urea nitrogen [Mass/Vol] 24 mg/dL High 4-19 [facility] Sodium levelOrdered By: Avni Walker 09-13-2024 Sodium [Moles/Vol] 140 mmol/L 133-145 [facility] TSH DL <= 0.005 mIU/L QnOrde red By: Avni Walker 09-13-2024 TSH Qn 1.080 uIU/mL 0.300-4.200 [facility] Thyroid Stim Hormone (TSH)on 09-13-2024 TSH 1.080 uIU/mL Normal 0.300-4.200 [facility] Comment on above: Performed By: #### L 500.2500, L500.3400, L500.4100, L503.6620, L501.9520 #### [facility] [address] [place], [address] Total proteinOrdered By: Avni Walker on 09-13-2024 Protein [Mass/Vol] 7.3 g/dL 5.9-8.4 [facility] Vitamin D,25 Hydroxyon 09-13 Vitamin D 25-OH 52.8 ng/mL Normal 30-100 [facility] Comment on above: Result Comment: Lizz min D Status Deficiency: <20 ng/mL (50nmol/L) Insufficiency: 20-30 ng/mL (50-75 nmol/L) Sufficiency: 30-100 ng/mL (75-250 nmol/L) Toxicity: >100 ng/mL (>250 nmol/L) Performed By: #### L 500.2500, L500.3400, L500.4100, L503.6620, L501.9520 #### [facility] [address] [place], [address] White blood cell (WBC) count Ordered By: Avni Walker on 09-13-2024 WBC (Bld) [#/Vol] 8.2 10*3/uL 4.4-11.0 [facility] Basic Metabolic Profile (BMP )on 05-31-2024 BUN/CRE 26.6 RATIO High 10-20 [facility] Comment on above: Performed By: #### L 500.2500, L500.3400, L500.4100, L503.6620, L501.9520 #### [facility] [address] [place], [address] CA,Total 9.1 mg/dL Normal 8.5-10.1 [facility] Comment on above: Performed By: #### L 500.2500, L500.3400, L500.4100, L503.6620, L501.9520 #### [facility] [address] [place], [address] Chloride [Moles/Vol] 109 mmol/L High 98-107 [facility] Comment on above: Performed By: #### L 500.2500, L500.3400, L500.4100, L503.6620, L501.9520 #### [facility] [address] [place], [address] CO2 [Moles/Vol] 27.0 mmol/L Normal 21.0-32.0 [facility] Comment on above: Performed By: #### L 500.2500, L500.3400, L500.4100, L503.6620, L501.9520 #### [facility] [address] [place], [address] Creatinine [Mass/Vol] 0.83 mg/dL Normal 0.70-1.30 [facility] Comment on above: Result Comment: The validity of the calculated GFR GFRAA in patients over 70 years has not been determined. Clinical correlation is essential. Performed By: #### L 500.2500, L500.3400, L500.4100, L503.6620, L501.9520 #### [facility] [address] [place], [address] ECRCL 87.46 ml/min Normal [facility] Comment on above: Performed By: #### L 500.2500, L500.3400, L500.4100, L503.6620, L501.9520 #### [facility] [address] [place], [address] EST GFR - AA 115 mL/min Normal >60 [facility] Comment on above: Result Comment: Afri can [place] GFR Calc Performed By: #### L 500.2500, L500.3400, L500.4100, L503.6620, L501.9520 #### [facility] [address] [place], [address] GAP 4 Low 5-15 [facility] Comment on above: Performed By: #### L 500.2500, L500.3400, L500.4100, L503.6620, L501.9520 #### [facility] [address] [place], [address] GFR/1.73 sq M.predicted among non-blacks MDRD (S/P/Bld) [Vol rate/Area] 95 mL/min/{1.73_m2} Normal >60 [facility] Comment on above: Result Comment: Non- GFR Calc Performed By: #### L 500.2500, L500.3400, L500.4100, L503.6620, L501.9520 #### [facility] [address] [place], [address] Glucose [Mass/Vol] 107 mg/dL High 74-106 [facility] Comment on above: Result Comment: Fast ing Glucose result from 100 to 125 mg/dL suggests IMPAIRED HOMEOSTASIS per A.D.A. criteria. Performed By: #### L 500.2500, L500.3400, L500.4100, L503.6620, L501.9520 #### [facility] [address] [place], [address] Potassium [Moles/Vol] 3.7 mmol/L Normal 3.5-5.1 [facility] Comment on above: Performed By: #### L 500.2500, L500.3400, L500.4100, L503.6620, L501.9520 #### [facility] [address] [place], [address] Sodium [Moles/Vol] 140 mmol/L Normal 136-145 [facility] Comment on above: Performed By: #### L 500.2500, L500.3400, L500.4100, L503.6620, L501.9520 #### [facility] [address] [place], [address] Urea nitrogen [Mass/Vol] 22 mg/dL High 7-18 [facility] Comment on above: Performed By: #### L 500.2500, L500.3400, L500.4100, L503.6620, L501.9520 #### [facility] [address] [place], [address] CBC W/Diff, Automatedon 05-19-2024 Absolute Lymph 1.65 X10 3/uL Normal 0.83-4.51 [facility] Comment on above: Performed By: #### L 500.2500, L500.3400, L500.4100, L503.6620, L501.9520 #### [facility] [address] [place], [address] Absolute Neut 4.8 X10 3/uL Normal 2.0-7.7 [facility] Comment on above: Performed By: #### L 500.2500, L500.3400, L500.4100, L503.6620, L501.9520 #### [facility] [address] [place], [address] Basophils/100 WBC (Bld) 0.4 % Normal 0-1 [facility] Comment on above: Performed By: #### L 500.2500, L500.3400, L500.4100, L503.6620, L501.9520 #### [facility] [address] [place], [address] Eosinophils/100 WBC (Bld) 4.0 % Normal 0-5 [facility] Comment on above: Performed By: #### L 500.2500, L500.3400, L500.4100, L503.6620, L501.9520 #### [facility] [address] [place], [address] Erythrocyte distribution width (RBC) [Ratio] 13.2 % Normal 11.6-14.6 [facility] Comment on above: Performed By: #### L 500.2500, L500.3400, L500.4100, L503.6620, L501.9520 #### [facility] [address] [place], [address] Hematocrit (Bld) [Volume fraction] 34.3 % Low 40-54 [facility] Comment on above: Performed By: #### L 500.2500, L500.3400, L500.4100, L503.6620, L501.9520 #### [facility] [address] [place], [address] Hemoglobin (Bld) [Mass/Vol] 11.5 g/dL Low 13.0-16.5 [facility] Comment on above: Performed By: #### L 500.2500, L500.3400, L500.4100, L503.6620, L501.9520 #### [facility] [address] [place], [address] IG% 1.100 High 0.0-0.9 [facility] Comment on above: Result Comment: IG% - Immature Granulocytes (promyelocytes, myelocytes and metamyelocytes) > 1% indicates that a LEFT SHIFT is Present. Performed By: #### L 500.2500, L500.3400, L500.4100, L503.6620, L501.9520 #### [facility] [address] [place], [address] Lymphocytes/100 WBC (Bld) 21.8 % Normal 19-41 [facility] Comment on above: Performed By: #### L 500.2500, L500.3400, L500.4100, L503.6620, L501.9520 #### [facility] [address] [place], [address] MCH (RBC) [Entitic mass] 33.9 pg High 27.0-32.0 [facility] Comment on above: Performed By: #### L 500.2500, L500.3400, L500.4100, L503.6620, L501.9520 #### [facility] [address] [place], [address] MCHC (RBC) [Mass/Vol] 33.5 g/dL Normal 32-36 [facility] Comment on above: Performed By: #### L 500.2500, L500.3400, L500.4100, L503.6620, L501.9520 #### [facility] [address] [place], [address] MCV (RBC) [Entitic vol] 101.2 fL High 80-94 [facility] Comment on above: Performed By: #### L 500.2500, L500.3400, L500.4100, L503.6620, L501.9520 #### [facility] [address] [place], [address] Monocytes/100 WBC (Bld) 10.2 % High 0-10 [facility] Comment on above: Performed By: #### L 500.2500, L500.3400, L500.4100, L503.6620, L501.9520 #### [facility] [address] [place], [address] Neutrophils/100 WBC (Bld) 62.5 % Normal 47-70 [facility] Comment on above: Performed By: #### L 500.2500, L500.3400, L500.4100, L503.6620, L501.9520 #### [facility] [address] [place], [address] Nucleated RBC (Bld) [#/Vol] 0 10*3/uL Normal 0-5 [facility] Comment on above: Performed By: #### L 500.2500, L500.3400, L500.4100, L503.6620, L501.9520 #### [facility] [address] [place], [address] Platelet mean volume (Bld) [Entitic vol] 11.5 fL Normal 6.2-12.0 [facility] Comment on above: Performed By: #### L 500.2500, L500.3400, L500.4100, L503.6620, L501.9520 #### [facility] [address] [place], [address] Platelets (Bld) [#/Vol] 173 10*3/uL Normal 150-450 [facility] Comment on above: Performed By: #### L 500.2500, L500.3400, L500.4100, L503.6620, L501.9520 #### [facility] [address] [place], [address] RBC (Bld) [#/Vol] 3.39 10*6/uL Low 4.6-6.2 [facility] Comment on above: Performed By: #### L 500.2500, L500.3400, L500.4100, L503.6620, L501.9520 #### [facility] [address] [place], [address] RDW SD 49.2 fl High 35.1-43.9 [facility] Comment on above: Performed By: #### L 500.2500, L500.3400, L500.4100, L503.6620, L501.9520 #### [facility] [address] [place], [address] WBC (Bld) [#/Vol] 7.6 10*3/uL Normal 4.4-11.0 [facility] Comment on above: Performed By: #### L 500.2500, L500.3400, L500.4100, L503.6620, L501.9520 #### [facility] [address] [place], [address] Discharge Instructionon 05-19 Discharge Instruction [facility] Medical Records Department [address] [place] [address] Instructions for Home/Discharge Instructions 05/31/24 1055 MR#: [id number] Acct: [id number] Name: ANTOINE PEREZ Rep #: [id number] : 1945 78 From: Keith Kuhn MD [...] Carter Instructions Additional Instructions / Restrictions: Advised ruuf-ujy-tranlys probiotic, lactobacillus 1 tablet twice daily for [...] can be placed): Home, Self Care 05/31/24 7922 Keith Kuhn MD CC: Dr. Ángel Quiroz MD; Dr. Fabiola Lowery MD; Dr. Jluis Carter MD; Dr. Avni Walker MD Signed Normal [facility] Basic Metabolic Profile (BMP )on 05-30-2024 BUN/CRE 26.6 RATIO High 10-20 [facility] Comment on above: Performed By: #### L 501.1400, L501.9520, L500.4050, L506.1000, L100.0100 #### [facility] [address] [place], [address] CA,Total 9.0 mg/dL Normal 8.5-10.1 [facility] Comment on above: Performed By: #### L 501.1400, L501.9520, L500.4050, L506.1000, L100.0100 #### [facility] [address] [place], [address] Chloride [Moles/Vol] 110 mmol/L High 98-107 [facility] Comment on above: Performed By: #### L 501.1400, L501.9520, L500.4050, L506.1000, L100.0100 #### [facility] [address] [place], [address] CO2 [Moles/Vol] 27.0 mmol/L Normal 21.0-32.0 [facility] Comment on above: Performed By: #### L 501.1400, L501.9520, L500.4050, L506.1000, L100.0100 #### [facility] [address] [place], [address] Creatinine [Mass/Vol] 0.79 mg/dL Normal 0.70-1.30 [facility] Comment on above: Result Comment: The validity of the calculated GFR GFRAA in patients over 70 years has not been determined. Clinical correlation is essential. Performed By: #### L 501.1400, L501.9520, L500.4050, L506.1000, L100.0100 #### [facility] [address] [place], [address] ECRCL 90.74 ml/min Normal [facility] Comment on above: Performed By: #### L 501.1400, L501.9520, L500.4050, L506.1000, L100.0100 #### [facility] [address] [place], [address] EST GFR - AA 122 mL/min Normal >60 [facility] Comment on above: Result Comment: Afri can [place] GFR Calc Performed By: #### L 501.1400, L501.9520, L500.4050, L506.1000, L100.0100 #### [facility] [address] [place], [address] GAP 4 Low 5-15 [facility] Comment on above: Performed By: #### L 501.1400, L501.9520, L500.4050, L506.1000, L100.0100 #### [facility] [address] [place], [address] GFR/1.73 sq M.predicted among non-blacks MDRD (S/P/Bld) [Vol rate/Area] 100 mL/min/{1.73_m2} Normal >60 [facility] Comment on above: Result Comment: Non- GFR Calc Performed By: #### L 501.1400, L501.9520, L500.4050, L506.1000, L100.0100 #### [facility] [address] [place], [address] Glucose [Mass/Vol] 102 mg/dL Normal 74-106 [facility] Comment on above: Result Comment: Fast ing Glucose result from 100 to 125 mg/dL suggests IMPAIRED HOMEOSTASIS per A.D.A. criteria. Performed By: #### L 501.1400, L501.9520, L500.4050, L506.1000, L100.0100 #### [facility] [address] [place], [address] Potassium [Moles/Vol] 3.7 mmol/L Normal 3.5-5.1 [facility] Comment on above: Performed By: #### L 501.1400, L501.9520, L500.4050, L506.1000, L100.0100 #### [facility] [address] [place], [address] Sodium [Moles/Vol] 140 mmol/L Normal 136-145 [facility] Comment on above: Performed By: #### L 501.1400, L501.9520, L500.4050, L506.1000, L100.0100 #### [facility] [address] [place], [address] Urea nitrogen [Mass/Vol] 21 mg/dL High 7-18 [facility] Comment on above: Performed By: #### L 501.1400, L501.9520, L500.4050, L506.1000, L100.0100 #### [facility] [address] [place], [address] CBC W/Diff, Automatedon -05 20-2024 Absolute Lymph 1.58 X10 3/uL Normal 0.83-4.51 [facility] Comment on above: Performed By: #### L 501.1400, L501.9520, L500.4050, L506.1000, L100.0100 #### [facility] [address] [place], [address] Absolute Neut 3.9 X10 3/uL Normal 2.0-7.7 [facility] Comment on above: Performed By: #### L 501.1400, L501.9520, L500.4050, L506.1000, L100.0100 #### [facility] [address] [place], [address] Basophils/100 WBC (Bld) 0.3 % Normal 0-1 [facility] Comment on above: Performed By: #### L 501.1400, L501.9520, L500.4050, L506.1000, L100.0100 #### [facility] [address] [place], [address] Eosinophils/100 WBC (Bld) 4.2 % Normal 0-5 [facility] Comment on above: Performed By: #### L 501.1400, L501.9520, L500.4050, L506.1000, L100.0100 #### [facility] [address] [place], [address] Erythrocyte distribution width (RBC) [Ratio] 13.2 % Normal 11.6-14.6 [facility] Comment on above: Performed By: #### L 501.1400, L501.9520, L500.4050, L506.1000, L100.0100 #### [facility] [address] [place], [address] Hematocrit (Bld) [Volume fraction] 34.4 % Low 40-54 [facility] Comment on above: Performed By: #### L 501.1400, L501.9520, L500.4050, L506.1000, L100.0100 #### [facility] [address] [place], [address] Hemoglobin (Bld) [Mass/Vol] 11.2 g/dL Low 13.0-16.5 [facility] Comment on above: Performed By: #### L 501.1400, L501.9520, L500.4050, L506.1000, L100.0100 #### [facility] [address] [place], [address] IG% 0.600 Normal 0.0-0.9 [facility] Comment on above: Result Comment: IG% - Immature Granulocytes (promyelocytes, myelocytes and metamyelocytes) > 1% indicates that a LEFT SHIFT is Present. Performed By: #### L 501.1400, L501.9520, L500.4050, L506.1000, L100.0100 #### [facility] [address] [place], [address] Lymphocytes/100 WBC (Bld) 23.9 % Normal 19-41 [facility] Comment on above: Performed By: #### L 501.1400, L501.9520, L500.4050, L506.1000, L100.0100 #### [facility] [address] [place], [address] MCH (RBC) [Entitic mass] 33.2 pg High 27.0-32.0 [facility] Comment on above: Performed By: #### L 501.1400, L501.9520, L500.4050, L506.1000, L100.0100 #### [facility] [address] [place], [address] MCHC (RBC) [Mass/Vol] 32.6 g/dL Normal 32-36 [facility] Comment on above: Performed By: #### L 501.1400, L501.9520, L500.4050, L506.1000, L100.0100 #### [facility] [address] [place], [address] MCV (RBC) [Entitic vol] 102.1 fL High 80-94 [facility] Comment on above: Performed By: #### L 501.1400, L501.9520, L500.4050, L506.1000, L100.0100 #### [facility] [address] [place], [address] Monocytes/100 WBC (Bld) 11.8 % High 0-10 [facility] Comment on above: Performed By: #### L 501.1400, L501.9520, L500.4050, L506.1000, L100.0100 #### [facility] [address] [place], [address] Neutrophils/100 WBC (Bld) 59.2 % Normal 47-70 [facility] Comment on above: Performed By: #### L 501.1400, L501.9520, L500.4050, L506.1000, L100.0100 #### [facility] [address] [place], [address] Nucleated RBC (Bld) [#/Vol] 0 10*3/uL Normal 0-5 [facility] Comment on above: Performed By: #### L 501.1400, L501.9520, L500.4050, L506.1000, L100.0100 #### [facility] [address] [place], [address] Platelet mean volume (Bld) [Entitic vol] 11.6 fL Normal 6.2-12.0 [facility] Comment on above: Performed By: #### L 501.1400, L501.9520, L500.4050, L506.1000, L100.0100 #### [facility] [address] [place], [address] Platelets (Bld) [#/Vol] 173 10*3/uL Normal 150-450 [facility] Comment on above: Performed By: #### L 501.1400, L501.9520, L500.4050, L506.1000, L100.0100 #### [facility] [address] [place], [address] RBC (Bld) [#/Vol] 3.37 10*6/uL Low 4.6-6.2 [facility] Comment on above: Performed By: #### L 501.1400, L501.9520, L500.4050, L506.1000, L100.0100 #### [facility] [address] [place], [address] RDW SD 49.9 fl High 35.1-43.9 [facility] Comment on above: Performed By: #### L 501.1400, L501.9520, L500.4050, L506.1000, L100.0100 #### [facility] [address] [place], [address] WBC (Bld) [#/Vol] 6.6 10*3/uL Normal 4.4-11.0 [facility] Comment on above: Performed By: #### L 501.1400, L501.9520, L500.4050, L506.1000, L100.0100 #### [facility] [address] [place], [address] Vancomycin, Random Levelon 0 - VANCO, RANDOM 16.0 ug/mL High 0.0-15.0 [facility] Comment on above: Result Comment: VANC OMYCIN STANDARD DRUG THERAPY: CRITICAL VALUE IS > 15.0 mg/L VANCOMYCIN HIGH INTENSITY THERAPY: CRITICAL VALUE IS > 20.0 mg/L PLEASE CONTACT PHARMACY SERVICES (#[id number]) FOR INTERPRETATION OF RESULTS. THIS RESULT DOES NOT REPRESENT A PEAK OR TROUGH LEVEL FOR THIS DRUG. Performed By: #### L 500.2500, L500.3400, L500.4100, L503.6620, L501.9520 #### [facility] [address] [place], [address] VANCO, RANDOM 21.9 ug/mL High 0.0-15.0 [facility] Comment on above: Result Comment: VANC OMYCIN STANDARD DRUG THERAPY: CRITICAL VALUE IS > 15.0 mg/L VANCOMYCIN HIGH INTENSITY THERAPY: CRITICAL VALUE IS > 20.0 mg/L PLEASE CONTACT PHARMACY SERVICES (#[id number]) FOR INTERPRETATION OF RESULTS. THIS RESULT DOES NOT REPRESENT A PEAK OR TROUGH LEVEL FOR THIS DRUG. Performed By: #### L 500.2500, L500.3400, L500.4100, L503.6620, L501.9520 #### [facility] [address] [facility] [place], [place], [address] Wound Cultureon 05-30-2024 WC #1 Possible skin contamination, further Identification and sensitivity will be performed only by physician's request. Wound Culture #2 Previously Actinomyces odontolyticus. Susceptibility not normally performed on this organism. Coag Negative Staph Amount Growth Very Rare Schaalia odontolyticus Schaalia odontolyticus Normal [facility] Comment on above: Performed By: #### L 500.2500, L500.3400, L500.4100, L503.6620, L501.9520 #### [facility] [address] [place], [address] Basic Metabolic Profile (BMP )on 05-29-2024 BUN/CRE 25.1 RATIO High 10-20 [facility] Comment on above: Performed By: #### L 500.2500, L500.3400, L500.4100, L503.6620, L501.9520 #### [facility] [address] [place], [address] CA,Total 8.9 mg/dL Normal 8.5-10.1 [facility] Comment on above: Performed By: #### L 500.2500, L500.3400, L500.4100, L503.6620, L501.9520 #### [facility] [address] [place], [address] Chloride [Moles/Vol] 110 mmol/L High 98-107 [facility] Comment on above: Performed By: #### L 500.2500, L500.3400, L500.4100, L503.6620, L501.9520 #### [facility] [address] [place], [address] CO2 [Moles/Vol] 27.0 mmol/L Normal 21.0-32.0 [facility] Comment on above: Performed By: #### L 500.2500, L500.3400, L500.4100, L503.6620, L501.9520 #### [facility] [address] [place], [address] Creatinine [Mass/Vol] 0.84 mg/dL Normal 0.70-1.30 [facility] Comment on above: Result Comment: The validity of the calculated GFR GFRAA in patients over 70 years has not been determined. Clinical correlation is essential. Performed By: #### L 500.2500, L500.3400, L500.4100, L503.6620, L501.9520 #### [facility] [address] [place], [address] ECRCL 86.05 ml/min Normal [facility] Comment on above: Performed By: #### L 500.2500, L500.3400, L500.4100, L503.6620, L501.9520 #### [facility] [address] [place], [address] EST GFR - AA 114 mL/min Normal >60 [facility] Comment on above: Result Comment: Afri can [place] GFR Calc Performed By: #### L 500.2500, L500.3400, L500.4100, L503.6620, L501.9520 #### [facility] [address] [place], [address] GAP 3 Low 5-15 [facility] Comment on above: Performed By: #### L 500.2500, L500.3400, L500.4100, L503.6620, L501.9520 #### [facility] [address] [place], [address] GFR/1.73 sq M.predicted among non-blacks MDRD (S/P/Bld) [Vol rate/Area] 94 mL/min/{1.73_m2} Normal >60 [facility] Comment on above: Result Comment: Non- GFR Calc Performed By: #### L 500.2500, L500.3400, L500.4100, L503.6620, L501.9520 #### [facility] [address] [place], [address] Glucose [Mass/Vol] 113 mg/dL High 74-106 [facility] Comment on above: Result Comment: Fast ing Glucose result from 100 to 125 mg/dL suggests IMPAIRED HOMEOSTASIS per A.D.A. criteria. Performed By: #### L 500.2500, L500.3400, L500.4100, L503.6620, L501.9520 #### [facility] [address] [place], [address] Potassium [Moles/Vol] 3.8 mmol/L Normal 3.5-5.1 [facility] Comment on above: Performed By: #### L 500.2500, L500.3400, L500.4100, L503.6620, L501.9520 #### [facility] [address] [place], [address] Sodium [Moles/Vol] 140 mmol/L Normal 136-145 [facility] Comment on above: Performed By: #### L 500.2500, L500.3400, L500.4100, L503.6620, L501.9520 #### [facility] [address] [place], [address] Urea nitrogen [Mass/Vol] 21 mg/dL High 7-18 [facility] Comment on above: Performed By: #### L 500.2500, L500.3400, L500.4100, L503.6620, L501.9520 #### [facility] [address] [place], [address] CBC W/Diff, Automatedon 05-19-2024 Absolute Lymph 1.58 X10 3/uL Normal 0.83-4.51 [facility] Comment on above: Performed By: #### L 500.2500, L500.3400, L500.4100, L503.6620, L501.9520 #### [facility] [address] [place], [address] Absolute Neut 4.1 X10 3/uL Normal 2.0-7.7 [facility] Comment on above: Performed By: #### L 500.2500, L500.3400, L500.4100, L503.6620, L501.9520 #### [facility] [address] [place], [address] Basophils/100 WBC (Bld) 0.4 % Normal 0-1 [facility] Comment on above: Performed By: #### L 500.2500, L500.3400, L500.4100, L503.6620, L501.9520 #### [facility] [address] [place], [address] Eosinophils/100 WBC (Bld) 4.9 % Normal 0-5 [facility] Comment on above: Performed By: #### L 500.2500, L500.3400, L500.4100, L503.6620, L501.9520 #### [facility] [address] [place], [address] Erythrocyte distribution width (RBC) [Ratio] 13.3 % Normal 11.6-14.6 [facility] Comment on above: Performed By: #### L 500.2500, L500.3400, L500.4100, L503.6620, L501.9520 #### [facility] [address] [place], [address] Hematocrit (Bld) [Volume fraction] 33.7 % Low 40-54 [facility] Comment on above: Performed By: #### L 500.2500, L500.3400, L500.4100, L503.6620, L501.9520 #### [facility] [address] [place], [address] Hemoglobin (Bld) [Mass/Vol] 11.2 g/dL Low 13.0-16.5 [facility] Comment on above: Performed By: #### L 500.2500, L500.3400, L500.4100, L503.6620, L501.9520 #### [facility] [address] [place], [address] IG% 0.600 Normal 0.0-0.9 [facility] Comment on above: Result Comment: IG% - Immature Granulocytes (promyelocytes, myelocytes and metamyelocytes) > 1% indicates that a LEFT SHIFT is Present. Performed By: #### L 500.2500, L500.3400, L500.4100, L503.6620, L501.9520 #### [facility] [address] [place], [address] Lymphocytes/100 WBC (Bld) 23.4 % Normal 19-41 [facility] Comment on above: Performed By: #### L 500.2500, L500.3400, L500.4100, L503.6620, L501.9520 #### [facility] [address] [place], [address] MCH (RBC) [Entitic mass] 33.8 pg High 27.0-32.0 [facility] Comment on above: Performed By: #### L 500.2500, L500.3400, L500.4100, L503.6620, L501.9520 #### [facility] [address] [place], [address] MCHC (RBC) [Mass/Vol] 33.2 g/dL Normal 32-36 [facility] Comment on above: Performed By: #### L 500.2500, L500.3400, L500.4100, L503.6620, L501.9520 #### [facility] [address] [place], [address] MCV (RBC) [Entitic vol] 101.8 fL High 80-94 [facility] Comment on above: Performed By: #### L 500.2500, L500.3400, L500.4100, L503.6620, L501.9520 #### [facility] [address] [place], [address] Monocytes/100 WBC (Bld) 10.4 % High 0-10 [facility] Comment on above: Performed By: #### L 500.2500, L500.3400, L500.4100, L503.6620, L501.9520 #### [facility] [address] [place], [address] Neutrophils/100 WBC (Bld) 60.3 % Normal 47-70 [facility] Comment on above: Performed By: #### L 500.2500, L500.3400, L500.4100, L503.6620, L501.9520 #### [facility] [address] [place], [address] Nucleated RBC (Bld) [#/Vol] 0 10*3/uL Normal 0-5 [facility] Comment on above: Performed By: #### L 500.2500, L500.3400, L500.4100, L503.6620, L501.9520 #### [facility] [address] [place], [address] Platelet mean volume (Bld) [Entitic vol] 12.0 fL Normal 6.2-12.0 [facility] Comment on above: Performed By: #### L 500.2500, L500.3400, L500.4100, L503.6620, L501.9520 #### [facility] [address] [place], [address] Platelets (Bld) [#/Vol] 169 10*3/uL Normal 150-450 [facility] Comment on above: Performed By: #### L 500.2500, L500.3400, L500.4100, L503.6620, L501.9520 #### [facility] [address] [place], [address] RBC (Bld) [#/Vol] 3.31 10*6/uL Low 4.6-6.2 [facility] Comment on above: Performed By: #### L 500.2500, L500.3400, L500.4100, L503.6620, L501.9520 #### [facility] [address] [place], [address] RDW SD 50.0 fl High 35.1-43.9 [facility] Comment on above: Performed By: #### L 500.2500, L500.3400, L500.4100, L503.6620, L501.9520 #### [facility] [address] [place], [address] WBC (Bld) [#/Vol] 6.8 10*3/uL Normal 4.4-11.0 [facility] Comment on above: Performed By: #### L 500.2500, L500.3400, L500.4100, L503.6620, L501.9520 #### [facility] [address] [place], [address] Consultation - Surgicalon Consultation - Surgical [facility] Medical Records Department [address] [place] [address] Consultation - Surgical 05/29/24 1406 MR#: [id number] Acct: [id number] Name: ANTOINE PEREZ Rep #: [id number] : 1945 78 From: Ángel Quiroz MD PCP: Dr. Avni Walker MD Status:ADM IN Location: [place] [id number] Assessment Plan Assessment/Plan (1) Abscess: PLAN: Patient [...] incise or drain. Ángel Quiroz MD Pager: [facility] [address] [place] [address], [address] [place] [address] Office: HPI Consult Data Date of Consult: 05/29/24 HPI Narrative HPI Narrative: ANTOINE PEREZ, is a 78 M who presents with facial abscess. The patient reports that he had a biopsy done of his skin lesion and this got infected. The patient had this area incised on Friday. He has been in the hospital since on IV antibiotics. [facility] Medical History Wears hearing aid Depression Alcohol [...] History (Updated 05/26/24 @ 17:[address] Faboila Lowery MD) Son Asthma Mother Hypertension HLD [...] intake frequen (more content not included)... Normal [facility] Vancomycin, Trough Levelon 0 05-29-2024 VANCO, TROUGH 29.0 ug/mL High 5.0-15.0 [facility] Comment on above: Order Comment: Comme nts: Trough to be drawn 30 mins prior to scheduled [id number] Result Comment: VANC OMYCIN STANDARED DRUG THERAPY TROUGH LEVEL: 5.0 - 15.0 mg/L VANCOMYCIN HIGH INTENSITY THERAPY TROUGH LEVEL: 15.0 - 20.0 mg/L High Intensity therapy recommended for serious life threatening infections include: - Meningitis -Endocarditis -Pneumonia (Ventilator/Healtcare Associated) -Sepsis PLEASE CONTACT PHARMACY SERVICES (#[id number]) FOR INTERPRETATION OF RESULTS. Performed By: #### L 500.2500, L500.3400, L500.4100, L503.6620, L501.9520 #### [facility] [address] [place], [address] CBC-Complete Blood Cnt No Di ffon 05-28-2024 Erythrocyte distribution width (RBC) [Ratio] 13.5 % Normal 11.6-14.6 [facility] Comment on above: Performed By: #### L 500.2500, L500.3400, L500.4100, L503.6620, L501.9520 #### [facility] [address] [place], [address] Hematocrit (Bld) [Volume fraction] 34.8 % Low 40-54 [facility] Comment on above: Performed By: #### L 500.2500, L500.3400, L500.4100, L503.6620, L501.9520 #### [facility] [address] [place], [address] Hemoglobin (Bld) [Mass/Vol] 11.5 g/dL Low 13.0-16.5 [facility] Comment on above: Performed By: #### L 500.2500, L500.3400, L500.4100, L503.6620, L501.9520 #### [facility] [address] [place], [address] MCH (RBC) [Entitic mass] 33.7 pg High 27.0-32.0 [facility] Comment on above: Performed By: #### L 500.2500, L500.3400, L500.4100, L503.6620, L501.9520 #### [facility] [address] [place], [address] MCHC (RBC) [Mass/Vol] 33.0 g/dL Normal 32-36 [facility] Comment on above: Performed By: #### L 500.2500, L500.3400, L500.4100, L503.6620, L501.9520 #### [facility] [address] [place], [address] MCV (RBC) [Entitic vol] 102.1 fL High 80-94 [facility] Comment on above: Performed By: #### L 500.2500, L500.3400, L500.4100, L503.6620, L501.9520 #### [facility] [address] [place], [address] Platelet mean volume (Bld) [Entitic vol] 12.0 fL Normal 6.2-12.0 [facility] Comment on above: Performed By: #### L 500.2500, L500.3400, L500.4100, L503.6620, L501.9520 #### [facility] [address] [place], [address] Platelets (Bld) [#/Vol] 160 10*3/uL Normal 150-450 [facility] Comment on above: Performed By: #### L 500.2500, L500.3400, L500.4100, L503.6620, L501.9520 #### [facility] [address] [place], [address] RBC (Bld) [#/Vol] 3.41 10*6/uL Low 4.6-6.2 [facility] Comment on above: Performed By: #### L 500.2500, L500.3400, L500.4100, L503.6620, L501.9520 #### [facility] [address] [place], [address] RDW SD 50.8 fl High 35.1-43.9 [facility] Comment on above: Performed By: #### L 500.2500, L500.3400, L500.4100, L503.6620, L501.9520 #### [facility] [address] [place], [address] WBC (Bld) [#/Vol] 6.6 10*3/uL Normal 4.4-11.0 [facility] Comment on above: Performed By: #### L 500.2500, L500.3400, L500.4100, L503.6620, L501.9520 #### [facility] [address] [place], [address] Comprehensive Metabolic Prof [facility] 05-28-2024 Albumin [Mass/Vol] 3.0 g/dL Low 3.2-5.0 [facility] Comment on above: Performed By: #### L 500.2500, L500.3400, L500.4100, L503.6620, L501.9520 #### [facility] [address] [place], [address] Albumin/Globulin [Mass ratio] 0.8 {ratio} Low 0.9-2.4 [facility] Comment on above: Performed By: #### L 500.2500, L500.3400, L500.4100, L503.6620, L501.9520 #### [facility] [address] [place], [address] ALK P 74 U/L Normal 45-117 [facility] Comment on above: Performed By: #### L 500.2500, L500.3400, L500.4100, L503.6620, L501.9520 #### [facility] [address] [place], [address] ALT [Catalytic activity/Vol] 22 U/L Normal 16-61 [facility] Comment on above: Performed By: #### L 500.2500, L500.3400, L500.4100, L503.6620, L501.9520 #### [facility] [address] [place], [address] AST [Catalytic activity/Vol] 15 U/L Normal 15-37 [facility] Comment on above: Performed By: #### L 500.2500, L500.3400, L500.4100, L503.6620, L501.9520 #### [facility] [address] [place], [address] Bilirubin [Mass/Vol] 0.50 mg/dL Normal 0.20-1.00 [facility] Comment on above: Result Comment: For patients on eltrombopag therapy, use of Dimension [place] TBIL is not recommended. Performed By: #### L 500.2500, L500.3400, L500.4100, L503.6620, L501.9520 #### [facility] [address] [place], [address] BUN/CRE 25.9 RATIO High 10-20 [facility] Comment on above: Performed By: #### L 500.2500, L500.3400, L500.4100, L503.6620, L501.9520 #### [facility] [address] [place], [address] CA,Total 8.9 mg/dL Normal 8.5-10.1 [facility] Comment on above: Performed By: #### L 500.2500, L500.3400, L500.4100, L503.6620, L501.9520 #### [facility] [address] [place], [address] Chloride [Moles/Vol] 111 mmol/L High 98-107 [facility] Comment on above: Performed By: #### L 500.2500, L500.3400, L500.4100, L503.6620, L501.9520 #### [facility] [address] [place], [address] CO2 [Moles/Vol] 25.0 mmol/L Normal 21.0-32.0 [facility] Comment on above: Performed By: #### L 500.2500, L500.3400, L500.4100, L503.6620, L501.9520 #### [facility] [address] [place], [address] Creatinine [Mass/Vol] 0.77 mg/dL Normal 0.70-1.30 [facility] Comment on above: Result Comment: The validity of the calculated GFR GFRAA in patients over 70 years has not been determined. Clinical correlation is essential. Performed By: #### L 500.2500, L500.3400, L500.4100, L503.6620, L501.9520 #### [facility] [address] [place], [address] ECRCL 90.36 ml/min Normal [facility] Comment on above: Performed By: #### L 500.2500, L500.3400, L500.4100, L503.6620, L501.9520 #### [facility] [address] [place], [address] EST GFR - AA 125 mL/min Normal >60 [facility] Comment on above: Result Comment: Afri can [place] GFR Calc Performed By: #### L 500.2500, L500.3400, L500.4100, L503.6620, L501.9520 #### [facility] [address] [place], [address] GAP 4 Low 5-15 [facility] Comment on above: Performed By: #### L 500.2500, L500.3400, L500.4100, L503.6620, L501.9520 #### [facility] [address] [place], [address] GFR/1.73 sq M.predicted among non-blacks MDRD (S/P/Bld) [Vol rate/Area] 103 mL/min/{1.73_m2} Normal >60 [facility] Comment on above: Result Comment: Non- GFR Calc Performed By: #### L 500.2500, L500.3400, L500.4100, L503.6620, L501.9520 #### [facility] [address] [place], [address] Globulin (S) [Mass/Vol] 3.8 g/dL Normal 2.2-4.2 [facility] Comment on above: Performed By: #### L 500.2500, L500.3400, L500.4100, L503.6620, L501.9520 #### [facility] [address] [place], [address] Glucose [Mass/Vol] 115 mg/dL High 74-106 [facility] Comment on above: Result Comment: Fast ing Glucose result from 100 to 125 mg/dL suggests IMPAIRED HOMEOSTASIS per A.D.A. criteria. Performed By: #### L 500.2500, L500.3400, L500.4100, L503.6620, L501.9520 #### [facility] [address] [place], [address] Potassium [Moles/Vol] 4.1 mmol/L Normal 3.5-5.1 [facility] Comment on above: Performed By: #### L 500.2500, L500.3400, L500.4100, L503.6620, L501.9520 #### [facility] [address] [place], [address] Sodium [Moles/Vol] 140 mmol/L Normal 136-145 [facility] Comment on above: Performed By: #### L 500.2500, L500.3400, L500.4100, L503.6620, L501.9520 #### [facility] [address] [place], [address] T PROT 6.8 g/dL Normal 6.4-8.2 [facility] Comment on above: Performed By: #### L 500.2500, L500.3400, L500.4100, L503.6620, L501.9520 #### [facility] [address] [place], [address] Urea nitrogen [Mass/Vol] 20 mg/dL High 7-18 [facility] Comment on above: Performed By: #### L 500.2500, L500.3400, L500.4100, L503.6620, L501.9520 #### [facility] [address] [place], [address] M8200.1000on 05-28-2024 M8200.1000 Normal Reference Ran ge = Negative MRSA DNA Nose Ql PADDY+probe GeneXpert Instrument, PCR method MRSA PCR MRSA NEGATIVE * This is an amended result. * A prior result that was reported as final has been changed. 05/29/24 0811 by TAVON [facility] Comment on above: Performed By: #### L 500.2500, L500.3400, L500.4100, L503.6620, L501.9520 #### [facility] [address] [place], [address] Magnesiumon 05-28-2024 Magnesium [Mass/Vol] 2.4 mg/dL Normal 1.6-2.6 [facility] Comment on above: Performed By: #### L 500.2500, L500.3400, L500.4100, L503.6620, L501.9520 #### [facility] [address] [place], [address] Phosphoruson 05-28-2024 Phosphate [Mass/Vol] 3.9 mg/dL Normal 2.5-4.9 [facility] Comment on above: Performed By: #### L 500.2500, L500.3400, L500.4100, L503.6620, L501.9520 #### [facility] [address] [place], [address] CBC W/Diff, Automatedon Absolute Lymph 1.26 X10 3/uL Normal 0.83-4.51 [facility] Comment on above: Performed By: #### L 500.2500, L500.3400, L500.4100, L503.6620, L501.9520 #### [facility] [address] [place], [address] Absolute Neut 5.6 X10 3/uL Normal 2.0-7.7 [facility] Comment on above: Performed By: #### L 500.2500, L500.3400, L500.4100, L503.6620, L501.9520 #### [facility] [address] [place], [address] Basophils/100 WBC (Bld) 0.4 % Normal 0-1 [facility] Comment on above: Performed By: #### L 500.2500, L500.3400, L500.4100, L503.6620, L501.9520 #### [facility] [address] [place], [address] Eosinophils/100 WBC (Bld) 3.2 % Normal 0-5 [facility] Comment on above: Performed By: #### L 500.2500, L500.3400, L500.4100, L503.6620, L501.9520 #### [facility] [address] [place], [address] Erythrocyte distribution width (RBC) [Ratio] 13.6 % Normal 11.6-14.6 [facility] Comment on above: Performed By: #### L 500.2500, L500.3400, L500.4100, L503.6620, L501.9520 #### [facility] [address] [place], [address] Hematocrit (Bld) [Volume fraction] 34.5 % Low 40-54 [facility] Comment on above: Performed By: #### L 500.2500, L500.3400, L500.4100, L503.6620, L501.9520 #### [facility] [address] [place], [address] Hemoglobin (Bld) [Mass/Vol] 11.2 g/dL Low 13.0-16.5 [facility] Comment on above: Performed By: #### L 500.2500, L500.3400, L500.4100, L503.6620, L501.9520 #### [facility] [address] [place], [address] IG% 0.700 Normal 0.0-0.9 [facility] Comment on above: Result Comment: IG% - Immature Granulocytes (promyelocytes, myelocytes and metamyelocytes) > 1% indicates that a LEFT SHIFT is Present. Performed By: #### L 500.2500, L500.3400, L500.4100, L503.6620, L501.9520 #### [facility] [address] [place], [address] Lymphocytes/100 WBC (Bld) 15.5 % Low 19-41 [facility] Comment on above: Performed By: #### L 500.2500, L500.3400, L500.4100, L503.6620, L501.9520 #### [facility] [address] [place], [address] MCH (RBC) [Entitic mass] 33.4 pg High 27.0-32.0 [facility] Comment on above: Performed By: #### L 500.2500, L500.3400, L500.4100, L503.6620, L501.9520 #### [facility] [address] [place], [address] MCHC (RBC) [Mass/Vol] 32.5 g/dL Normal 32-36 [facility] Comment on above: Performed By: #### L 500.2500, L500.3400, L500.4100, L503.6620, L501.9520 #### [facility] [address] [place], [address] MCV (RBC) [Entitic vol] 103.0 fL High 80-94 [facility] Comment on above: Performed By: #### L 500.2500, L500.3400, L500.4100, L503.6620, L501.9520 #### [facility] [address] [place], [address] Monocytes/100 WBC (Bld) 11.9 % High 0-10 [facility] Comment on above: Performed By: #### L 500.2500, L500.3400, L500.4100, L503.6620, L501.9520 #### [facility] [address] [place], [address] Neutrophils/100 WBC (Bld) 68.3 % Normal 47-70 [facility] Comment on above: Performed By: #### L 500.2500, L500.3400, L500.4100, L503.6620, L501.9520 #### [facility] [address] [place], [address] Nucleated RBC (Bld) [#/Vol] 0 10*3/uL Normal 0-5 [facility] Comment on above: Performed By: #### L 500.2500, L500.3400, L500.4100, L503.6620, L501.9520 #### [facility] [address] [place], [address] Platelet mean volume (Bld) [Entitic vol] 12.4 fL High 6.2-12.0 [facility] Comment on above: Performed By: #### L 500.2500, L500.3400, L500.4100, L503.6620, L501.9520 #### [facility] [address] [place], [address] Platelets (Bld) [#/Vol] 149 10*3/uL Low 150-450 [facility] Comment on above: Performed By: #### L 500.2500, L500.3400, L500.4100, L503.6620, L501.9520 #### [facility] [address] [place], [address] RBC (Bld) [#/Vol] 3.35 10*6/uL Low 4.6-6.2 [facility] Comment on above: Performed By: #### L 500.2500, L500.3400, L500.4100, L503.6620, L501.9520 #### [facility] [address] [place], [address] RDW SD 51.4 fl High 35.1-43.9 [facility] Comment on above: Performed By: #### L 500.2500, L500.3400, L500.4100, L503.6620, L501.9520 #### [facility] [address] [place], [address] WBC (Bld) [#/Vol] 8.2 10*3/uL Normal 4.4-11.0 [facility] Comment on above: Performed By: #### L 500.2500, L500.3400, L500.4100, L503.6620, L501.9520 #### [facility] [address] [place], [address] [facility] Albumin [Mass/Vol] 3.1 g/dL Low 3.2-5.0 [facility] Comment on above: Performed By: #### L 500.2500, L500.3400, L500.4100, L503.6620, L501.9520 #### [facility] [address] [place], [address] Albumin/Globulin [Mass ratio] 0.9 {ratio} Normal 0.9-2.4 [facility] Comment on above: Performed By: #### L 500.2500, L500.3400, L500.4100, L503.6620, L501.9520 #### [facility] [address] [place], [address] ALK P 78 U/L Normal 45-117 [facility] Comment on above: Performed By: #### L 500.2500, L500.3400, L500.4100, L503.6620, L501.9520 #### [facility] [address] [place], [address] ALT [Catalytic activity/Vol] 22 U/L Normal 16-61 [facility] Comment on above: Performed By: #### L 500.2500, L500.3400, L500.4100, L503.6620, L501.9520 #### [facility] [address] [place], [address] AST [Catalytic activity/Vol] 13 U/L Low 15-37 [facility] Comment on above: Performed By: #### L 500.2500, L500.3400, L500.4100, L503.6620, L501.9520 #### [facility] [address] [place], [address] Bilirubin [Mass/Vol] 0.40 mg/dL Normal 0.20-1.00 [facility] Comment on above: Result Comment: For patients on eltrombopag therapy, use of Dimension [place] TBIL is not recommended. Performed By: #### L 500.2500, L500.3400, L500.4100, L503.6620, L501.9520 #### [facility] [address] [place], [address] BUN/CRE 32.4 RATIO High 10-20 [facility] Comment on above: Performed By: #### L 500.2500, L500.3400, L500.4100, L503.6620, L501.9520 #### [facility] [address] [place], [address] CA,Total 8.9 mg/dL Normal 8.5-10.1 [facility] Comment on above: Performed By: #### L 500.2500, L500.3400, L500.4100, L503.6620, L501.9520 #### [facility] [address] [place], [address] Chloride [Moles/Vol] 109 mmol/L High 98-107 [facility] Comment on above: Performed By: #### L 500.2500, L500.3400, L500.4100, L503.6620, L501.9520 #### [facility] [address] [place], [address] CO2 [Moles/Vol] 26.0 mmol/L Normal 21.0-32.0 [facility] Comment on above: Performed By: #### L 500.2500, L500.3400, L500.4100, L503.6620, L501.9520 #### [facility] [address] [place], [address] Creatinine [Mass/Vol] 0.68 mg/dL Low 0.70-1.30 [facility] Comment on above: Result Comment: The validity of the calculated GFR GFRAA in patients over 70 years has not been determined. Clinical correlation is essential. Performed By: #### L 500.2500, L500.3400, L500.4100, L503.6620, L501.9520 #### [facility] [address] [place], [address] ECRCL 90.57 ml/min Normal [facility] Comment on above: Performed By: #### L 500.2500, L500.3400, L500.4100, L503.6620, L501.9520 #### [facility] [address] [place], [address] EST GFR - AA 145 mL/min Normal >60 [facility] Comment on above: Result Comment: Afri can [place] GFR Calc Performed By: #### L 500.2500, L500.3400, L500.4100, L503.6620, L501.9520 #### [facility] [address] [place], [address] GAP 4 Low 5-15 [facility] Comment on above: Performed By: #### L 500.2500, L500.3400, L500.4100, L503.6620, L501.9520 #### [facility] [address] [place], [address] GFR/1.73 sq M.predicted among non-blacks MDRD (S/P/Bld) [Vol rate/Area] 120 mL/min/{1.73_m2} Normal >60 [facility] Comment on above: Result Comment: Non- GFR Calc Performed By: #### L 500.2500, L500.3400, L500.4100, L503.6620, L501.9520 #### [facility] [address] [place], [address] Globulin (S) [Mass/Vol] 3.5 g/dL Normal 2.2-4.2 [facility] Comment on above: Performed By: #### L 500.2500, L500.3400, L500.4100, L503.6620, L501.9520 #### [facility] [address] [place], [address] Glucose [Mass/Vol] 109 mg/dL High 74-106 [facility] Comment on above: Result Comment: Fast ing Glucose result from 100 to 125 mg/dL suggests IMPAIRED HOMEOSTASIS per A.D.A. criteria. Performed By: #### L 500.2500, L500.3400, L500.4100, L503.6620, L501.9520 #### [facility] [address] [place], [address] Potassium [Moles/Vol] 4.0 mmol/L Normal 3.5-5.1 [facility] Comment on above: Performed By: #### L 500.2500, L500.3400, L500.4100, L503.6620, L501.9520 #### [facility] [address] [place], [address] Sodium [Moles/Vol] 138 mmol/L Normal 136-145 [facility] Comment on above: Performed By: #### L 500.2500, L500.3400, L500.4100, L503.6620, L501.9520 #### [facility] [address] [place], [address] T PROT 6.6 g/dL Normal 6.4-8.2 [facility] Comment on above: Performed By: #### L 500.2500, L500.3400, L500.4100, L503.6620, L501.9520 #### [facility] [address] [place], [address] Urea nitrogen [Mass/Vol] 22 mg/dL High 7-18 [facility] Comment on above: Performed By: #### L 500.2500, L500.3400, L500.4100, L503.6620, L501.9520 #### [facility] [address] [place], [address] Gram Stainon 05-27-2024 Gram Stain 1+ Gram positive cocci 4+ Gram variable bridgette No Epithelial cells 2+ White Blood Cells Normal [facility] Comment on above: Performed By: #### L 500.2500, L500.3400, L500.4100, L503.6620, L501.9520 #### [facility] [address] [place], [address] Vancomycin, Trough Levelon 0 05-27-2024 VANCO, TROUGH 19.6 ug/mL High 5.0-15.0 [facility] Comment on above: Order Comment: Comme nts: Trough to be drawn 30 mins prior to scheduled dose Result Comment: VANC OMYCIN STANDARED DRUG THERAPY TROUGH LEVEL: 5.0 - 15.0 mg/L VANCOMYCIN HIGH INTENSITY THERAPY TROUGH LEVEL: 15.0 - 20.0 mg/L High Intensity therapy recommended for serious life threatening infections include: - Meningitis -Endocarditis -Pneumonia (Ventilator/Healtcare Associated) -Sepsis PLEASE CONTACT PHARMACY SERVICES (#[id number]) FOR INTERPRETATION OF RESULTS. Performed By: #### L 501.1400, L501.9520, L500.4050, L506.1000, L100.0100 #### [facility] [address] [place], [address] Basic Metabolic Profile (BMP )on 05-26-2024 BUN/CRE 29.4 RATIO High 10-20 [facility] Comment on above: Performed By: #### L 500.2500, L500.3400, L500.4100, L503.6620, L501.9520 #### [facility] [address] [place], [address] CA,Total 9.4 mg/dL Normal 8.5-10.1 [facility] [place] Comment on above: Performed By: #### L 500.2500, L500.3400, L500.4100, L503.6620, L501.9520 #### [facility] [address] [place], [address] Chloride [Moles/Vol] 106 mmol/L Normal 98-107 [facility] Comment on above: Performed By: #### L 500.2500, L500.3400, L500.4100, L503.6620, L501.9520 #### [facility] [place] [facility] [address] [place], [address] CO2 [Moles/Vol] 28.0 mmol/L Normal 21.0-32.0 [facility] [place] Comment on above: Performed By: #### L 500.2500, L500.3400, L500.4100, L503.6620, L501.9520 #### [facility] [place] [facility] [address] [place], [address] Creatinine [Mass/Vol] 0.78 mg/dL Normal 0.70-1.30 [facility] Comment on above: Result Comment: The validity of the calculated GFR GFRAA in patients over 70 years has not been determined. Clinical correlation is essential. Performed By: #### L 500.2500, L500.3400, L500.4100, L503.6620, L501.9520 #### [facility] [place] [facility] [address] [place], [address] ECRCL 91.08 ml/min Normal [facility] [place] Comment on above: Performed By: #### L 500.2500, L500.3400, L500.4100, L503.6620, L501.9520 #### [facility] [place] [facility] [address] [place], [address] EST GFR - AA 123 mL/min Normal >60 [facility] [place] Comment on above: Result Comment: Afri can Citizen [place] GFR Calc Performed By: #### L 500.2500, L500.3400, L500.4100, L503.6620, L501.9520 #### [facility] [place] [facility] [address] [place], [address] GAP 3 Low 5-15 [facility] [place] Comment on above: Performed By: #### L 500.2500, L500.3400, L500.4100, L503.6620, L501.9520 #### [facility] [place] [facility] [address] [place], [address] GFR/1.73 sq M.predicted among non-blacks MDRD (S/P/Bld) [Vol rate/Area] 102 mL/min/{1.73_m2} Normal >60 [facility] [place] Comment on above: Result Comment: Non- GFR Calc Performed By: #### L 500.2500, L500.3400, L500.4100, L503.6620, L501.9520 #### [facility] [place] [facility] [address] [place], [address] Glucose [Mass/Vol] 118 mg/dL High 74-106 [facility] Comment on above: Result Comment: Fast ing Glucose result from 100 to 125 mg/dL suggests IMPAIRED HOMEOSTASIS per A.D.A. criteria. Performed By: #### L 500.2500, L500.3400, L500.4100, L503.6620, L501.9520 #### [facility] [place] [facility] [address] [place], [address] Potassium [Moles/Vol] 4.2 mmol/L Normal 3.5-5.1 [facility] Comment on above: Performed By: #### L 500.2500, L500.3400, L500.4100, L503.6620, L501.9520 #### [facility] [place] [facility] [address] [place], [address] Sodium [Moles/Vol] 137 mmol/L Normal 136-145 [facility] Comment on above: Performed By: #### L 500.2500, L500.3400, L500.4100, L503.6620, L501.9520 #### [facility] [place] [facility] [address] [place], [address] Urea nitrogen [Mass/Vol] 23 mg/dL High 7-18 [facility] [place] Comment on above: Performed By: #### L 500.2500, L500.3400, L500.4100, L503.6620, L501.9520 #### [facility] [place] [facility] [address] [place], [address] CBC W/Diff, Automatedon 01-0 Absolute Lymph 1.38 X10 3/uL Normal 0.83-4.51 [facility] [place] Comment on above: Performed By: #### L 500.2500, L500.3400, L500.4100, L503.6620, L501.9520 #### [facility] [place] [facility] [address] [place], [address] Absolute Neut 7.3 X10 3/uL Normal 2.0-7.7 [facility] [place] Comment on above: Performed By: #### L 500.2500, L500.3400, L500.4100, L503.6620, L501.9520 #### [facility] [place] [facility] [address] [place], [address] Basophils/100 WBC (Bld) 0.2 % Normal 0-1 [facility] Comment on above: Performed By: #### L 500.2500, L500.3400, L500.4100, L503.6620, L501.9520 #### [facility] [place] [facility] [address] [place], [address] Eosinophils/100 WBC (Bld) 1.7 % Normal 0-5 [facility] [place] Comment on above: Performed By: #### L 500.2500, L500.3400, L500.4100, L503.6620, L501.9520 #### [facility] [place] [facility] [address] [place], [address] Erythrocyte distribution width (RBC) [Ratio] 13.8 % Normal 11.6-14.6 [facility] [place] Comment on above: Performed By: #### L 500.2500, L500.3400, L500.4100, L503.6620, L501.9520 #### [facility] [place] [facility] [address] [place], [address] Hematocrit (Bld) [Volume fraction] 35.8 % Low 40-54 [facility] [place] Comment on above: Performed By: #### L 500.2500, L500.3400, L500.4100, L503.6620, L501.9520 #### [facility] [place] [facility] [address] [place], [address] Hemoglobin (Bld) [Mass/Vol] 12.2 g/dL Low 13.0-16.5 [facility] [place] Comment on above: Performed By: #### L 500.2500, L500.3400, L500.4100, L503.6620, L501.9520 #### [facility] [place] [facility] [address] [place], [address] IG% 0.700 Normal 0.0-0.9 [facility] [place] Comment on above: Result Comment: IG% - Immature Granulocytes (promyelocytes, myelocytes and metamyelocytes) > 1% indicates that a LEFT SHIFT is Present. Performed By: #### L 500.2500, L500.3400, L500.4100, L503.6620, L501.9520 #### [facility] [place] [facility] [address] [place], [address] Lymphocytes/100 WBC (Bld) 13.8 % Low 19-41 [facility] [place] Comment on above: Performed By: #### L 500.2500, L500.3400, L500.4100, L503.6620, L501.9520 #### [facility] [place] [facility] [address] [place], [address] MCH (RBC) [Entitic mass] 33.8 pg High 27.0-32.0 [facility] [place] Comment on above: Performed By: #### L 500.2500, L500.3400, L500.4100, L503.6620, L501.9520 #### [facility] [place] [facility] [address] [place], [address] MCHC (RBC) [Mass/Vol] 34.1 g/dL Normal 32-36 [facility] Comment on above: Performed By: #### L 500.2500, L500.3400, L500.4100, L503.6620, L501.9520 #### [facility] [place] [facility] [address] [place], [address] MCV (RBC) [Entitic vol] 99.2 fL High 80-94 [facility] Comment on above: Performed By: #### L 500.2500, L500.3400, L500.4100, L503.6620, L501.9520 #### [facility] [place] [facility] [address] [place], [address] Monocytes/100 WBC (Bld) 10.6 % High 0-10 [facility] Comment on above: Performed By: #### L 500.2500, L500.3400, L500.4100, L503.6620, L501.9520 #### [facility] [place] [facility] [address] [place], [address] Neutrophils/100 WBC (Bld) 73.0 % High 47-70 [facility] [place] Comment on above: Performed By: #### L 500.2500, L500.3400, L500.4100, L503.6620, L501.9520 #### [facility] [place] [facility] [address] [place], [address] Nucleated RBC (Bld) [#/Vol] 0 10*3/uL Normal 0-5 [facility] [place] Comment on above: Performed By: #### L 500.2500, L500.3400, L500.4100, L503.6620, L501.9520 #### [facility] [place] [facility] [address] [place], [address] Platelet mean volume (Bld) [Entitic vol] 12.1 fL High 6.2-12.0 [facility] [place] Comment on above: Performed By: #### L 500.2500, L500.3400, L500.4100, L503.6620, L501.9520 #### [facility] [place] [facility] [address] [place], [address] Platelets (Bld) [#/Vol] 151 10*3/uL Normal 150-450 [facility] [place] Comment on above: Performed By: #### L 500.2500, L500.3400, L500.4100, L503.6620, L501.9520 #### [facility] [place] [facility] [address] [place], [address] RBC (Bld) [#/Vol] 3.61 10*6/uL Low 4.6-6.2 [facility] Comment on above: Performed By: #### L 500.2500, L500.3400, L500.4100, L503.6620, L501.9520 #### [facility] [place] [facility] [address] [place], [address] RDW SD 49.9 fl High 35.1-43.9 [facility] [place] Comment on above: Performed By: #### L 500.2500, L500.3400, L500.4100, L503.6620, L501.9520 #### [facility] [place] [facility] [address] [place], [address] WBC (Bld) [#/Vol] 10.0 10*3/uL Normal 4.4-11.0 [facility] Comment on above: Performed By: #### L 500.2500, L500.3400, L500.4100, L503.6620, L501.9520 #### [facility] [place] [facility] [address] [place], [address] Emergency Department Summary on 05-26-2024 Emergency Department Summary [facility] Medical Records Department [address] [place] [address] Emergency Department Summary 05/26/24 MR#: [id number] Acct: [id number] Name: ANTOINE PEREZ Rep #: [id number] : 1945 78 From: Paco Bailey MD PCP: Dr. Avni Walker MD Status:ADM IN Location: [place] [address] HPI History of Present Illness Chief Complaint: [...] symptoms: No Recent Illness/Hospitalization : No PFSH PFSH Medical History Wears hearing aid Depression [...] Hematologic/Lymphatic Prosper (more content not included)... Normal [facility]P Exam - Hospitalist [facility] Medical Records Department [address] [place] [address] H P Exam - Hospitalist 05/26/24 1623 MR#: [id number] Acct: [id number] Name: ANTOINE PEREZ Rep #: [id number] : 1945 78 From: Fabiola Lowery MD PCP: Dr. Avni Walker MD Status:ADM IN Location: [place] [address] HPI - General General Date of Admission: 05/26/24 Date of Service: 05/26/24 Chief Complaint: Worsening R neck cellulitis, abscess. HPI Narrative The patient is a 78 y/o M w/ PMHx: Chronic macrocytic anemia, Obesity, Anxiety and Depression, Former tobacco use, PAF/Flutter, Chronic bradycardia, BPH with obstructive pathology, Nonischemic cardiomyopathy who presents to the [facility] ED on 05/26/24 with history [...] administered Unasyn 3 g IV x 1. [facility] Medical History Wears hearing aid Depression Alcohol [...] cataract surgery (more content not included)... Normal [facility] MRSA Wound DNA by PCRon MRSA DNA ASSAY Negative Normal Negative [facility] [place] Comment on above: Order Comment: subme ntal abscess Performed By: #### L 500.2500, L500.3400, L500.4100, L503.6620, L501.9520 #### [facility] [place] [facility] [address] [place], [address] SA DNA ASSAY Negative Normal Negative [facility] [place] Comment on above: Order Comment: subme ntal abscess Performed By: #### L 500.2500, L500.3400, L500.4100, L503.6620, L501.9520 #### [facility] [place] [facility] [address] [place], [address] Soft Tissue Neck WITH Contra ston 05-26-2024 Soft Tissue Neck WITH Contrast [facility] Imaging Services [address] [place] [address] Soft Tissue Neck WITH Contrast MR#: [id number] Acct: [id number] Name: ANTOINE PEREZ Rep #: [id number] : 1945 M 78 From: Jesse roblero MD PCP: Dr. Avni Walker MD Status: REG ER Study: Soft Tissue Neck WITH Contrast Date of Exam: 0 05/26/24 Exam# [id number] Ordering [place]: [place] [id number] INDICATION: submental abscess. CT BX PERFORMED 05/20/24 [...] Paco Bailey MD; Dr. Avni Walker MD Receiver Bulk System: Signed Normal [facility] Emergency Department Summary on 05-23-2024 Emergency Department Summary [facility] Medical Records Department [address] [place] [address] Emergency Department Summary 05/23/24 MR#: [id number] Acct: [id number] Name: ANTOINE PEREZ Rep #: [id number] : 1945 78 From: Torrey Leal MD [...] abscess that was getting ready to burst. [facility] Medical History Wears hearing aid Depression [...] Airway pat (more content not included)... Normal [facility] Operative Reporton Operative Report [facility] Medical Records Department [address] [place] [address] Operative Report 05/20/24 0956 MR#: [id number] Acct: [id number] Name: ANTOINE PEREZ Rep #: [id number] : 1945 78 From: Linda Perez SETTER OFF SETTER OFF-C PCP: Dr. Avni Walker MD Status:REG CLI Location: CT Problems Associated Problem List Diagnoses (1) Neck swelling: Procedures Radiology Radiology CT Procedures: 43558 Biopsy Lymph Node/gland/etc Multi Select Codes Radiology Radiology CT Procedures: 85732-82 CT guidance parenchymal tissue Operative Report (Standard) Operative Information Date of Procedure: 05/20/24 Pre-Operative Diagnosis: Neck swelling Post-Operative Diagnosis: Neck swelling Surgery/Procedure Performed: CT-guided biopsy gas or petroleum operator: No Type of Anesthesia: IV Sedation [...] Avni Walker MD; Sharri Cisneros Signed Normal [facility] Partial Thromboplast Timeon 05-20-2024 aPTT Coag (Bld) [Time] 33.6 s Normal 24.1-36.2 [facility] Comment on above: Performed By: #### L 501.1400, L501.9520, L500.4050, L506.1000, L100.0100 #### [facility] [place] [address] [place], [address] Platelet Counton 05-20-2024 Platelets (Bld) [#/Vol] 149 10*3/uL Low 150-450 [facility] [place] Comment on above: Performed By: #### L 501.1400, L501.9520, L500.4050, L506.1000, L100.0100 #### [facility] [place] [address] [place], [place], [address] Prothrombin Time w/INRon INR Coag (PPP) [Relative time] 1.0 {INR} Normal [facility] [place] Comment on above: Performed By: #### L 501.1400, L501.9520, L500.4050, L506.1000, L100.0100 #### [facility] [place] [facility] [address] [place], [address] PT Coag (PPP) [Time] 13.7 s Normal 11.7-14.9 [facility] Comment on above: Performed By: #### L 501.1400, L501.9520, L500.4050, L506.1000, L100.0100 #### [facility] [place] [address] [place], [place], [address] Special Stain Group IIon Special Stain Group II ------ Patient Age/Sex Location Account Attending Physician ANTOINE PEREZ 78/M CT [id number] Dr. Avni Walker MD Specimen: [id number] Received: 05/20/24 Status: KAYLENE Hernandez Num: [id number] Spec Type: ASP RAD Subm Dr: Dr. Avni Walker MD HEADER OPERATION: CT guided right neck mass biopsy PRE-OP DIAGNOSIS: Right lateral neck mass TISSUE SUBMITTED: 18 gauge x 5 cores MICROSCOPIC DIAGNOSIS Right lateral neck, core biopsy: Negative for malignant cells. See comment. .mr 05/21/2024 COMMENT The specimen is evaluated at [...] prepared at the time of core biopsy. .mr 05/20/2024 TC: Cannot code CPT:30452,61313 Patient Age/Sex Location Account Attending Physician ANTOINE PEREZ 78/M CT [id number] Dr. Avni Walker MD ADDENDUM Addendum 1 Entered: 05/25/24-9318 Portion of the specimen is saved for flow cytometry study and is submitted in cassette 2 and shows skin with dermal chronic inflammation. SJ.mr 05/25/2024 Addendum Signed (signature on file) Dr. Gennaro Joe MD 05/25/24 1258 Patient Age/Sex Location Account Attending Physician ANTOINE PEREZ 78/M CT [id number] Dr. Avni Walker MD Signed (signature on file) Dr. Gennaro Joe MD 05/21/24 1131 Normal [facility] Comment on above: Performed By: #### L 500.2500, L500.3400, L500.4100, L503.6620, L501.9520 #### [facility] [place], [address] Special Stain Group II ------ Patient Age/Sex Location Account Attending Physician ANTOINE PEREZ 78/M CT [id number] Dr. Avni Walker MD Specimen: [id number] Received: 05/20/24 Status: KAYLENE Hernandez Num: [id number] Spec Type: Fluid Subm Dr: Dr. Avni Walker MD HEADER OPERATION:CT guided right neck mass biopsy PRE-OP DIAGNOSIS: Right lateral neck mass TISSUE SUBMITTED: 18 gauge x 5 cores DIAGNOSIS CYTOLOGY Right lateral neck mass, fine needle aspiration (cytopsins and cellblock): Bloody specimen, negative for malignant cells. See comment. SJ.mr 05/21/2024 COMMENT Re-biopsy of the lesion is suggested, if clinically indicated. Please also make reference to additional specimen [id number]. Correlation with clinical, radilogic findings and appropriate follow up are necessary CYTOLOGY STUDY Slides are reviewed. CYTOLOGY GROSS Received is 0.2 ml of red cloudy fluid labeled with the patient's name and and designated per the requisition as Neck mass biopsy. Submitted for cytology preparation including cell block. Mr 05/20/2024 TC: Can not code CPT: 99977,43712 Signed (signature on file) Dr. Gennaro Joe MD 05/21/24 1134 Normal [facility] Comment on above: Performed By: #### L 500.2500, L500.3400, L500.4100, L503.6620, L501.9520 #### [facility] [place] [facility] [address] [place], [address] Orbit Face Neck W/WO Contras ton 04-13-2024 Orbit Face Neck W/WO Contrast [facility] Imaging Services [address], [place] [address] Orbit Face Neck W/WO Contrast MR#: [id number] Acct: [id number] Name: ANTOINE PEREZ Rep #: [id number] : 1945 M 78 From: Aries Donis MD PCP: Dr. Avni Walker MD Status: REG CLI Study: Orbit Face Neck W/WO Contrast Date of Exam: Exam# [id number] Ordering [place]: [place] [id number] STUDY: MRI ORBITS WITH AND WITHOUT CONTRAST [...] EST , CC: Dr. Avni Walker MD Receiver Bulk System: Signed Normal [facility] Abdomen Limitedon 03-19-2024 Abdomen Limited [facility] Imaging Services [address] [place] [address] Abdomen Limited MR#: [id number] Acct: [id number] Name: ANTOINE PEREZ Rep #: [id number] : 1945 M 78 From: Maxx mims MD PCP: Dr. Avni Walker MD Status: REG CL Study: Abdomen Limited Date of Exam: 03/19/24 Exam# [id number] Ordering [place]: [place] [id number] INDICATION: LIPOMA, LEFT LOWER BACK EXAMINATION: Ultrasound [...] Signed: Maxx James MD at 1:33 EDT , CC: Dr. Avni Walker MD Receiver Bulk System: Signed Normal [facility] CBC W/Diff, Automatedon 10-2 Absolute Lymph 1.90 X10 3/uL Normal 0.83-4.51 [facility] [place] Comment on above: Performed By: #### L 501.1400, L501.9520, L500.4050, L506.1000, L100.0100 #### [facility] [place] [address] [place], [address] Absolute Neut 5.8 X10 3/uL Normal 2.0-7.7 [facility] Comment on above: Performed By: #### L 501.1400, L501.9520, L500.4050, L506.1000, L100.0100 #### [facility] [place] [facility] [address] [place], [address] Basophils/100 WBC (Bld) 0.3 % Normal 0-1 [facility] Comment on above: Performed By: #### L 501.1400, L501.9520, L500.4050, L506.1000, L100.0100 #### [facility] [place] [address] [place], [address] Eosinophils/100 WBC (Bld) 3.3 % Normal 0-5 [facility] Comment on above: Performed By: #### L 501.1400, L501.9520, L500.4050, L506.1000, L100.0100 #### [facility] [place] [address] [place], [address] Erythrocyte distribution width (RBC) [Ratio] 13.5 % Normal 11.6-14.6 [facility] Comment on above: Performed By: #### L 501.1400, L501.9520, L500.4050, L506.1000, L100.0100 #### [facility] [place] [address] [place], [address] Hematocrit (Bld) [Volume fraction] 39.2 % Low 40-54 [facility] [place] Comment on above: Performed By: #### L 501.1400, L501.9520, L500.4050, L506.1000, L100.0100 #### [facility] [place] [facility] [address] [place], [address] Hemoglobin (Bld) [Mass/Vol] 12.8 g/dL Low 13.0-16.5 [facility] Comment on above: Performed By: #### L 501.1400, L501.9520, L500.4050, L506.1000, L100.0100 #### [facility] [place] [address] [place], [address] IG% 1.000 High 0.0-0.9 [facility] Comment on above: Result Comment: IG% - Immature Granulocytes (promyelocytes, myelocytes and metamyelocytes) > 1% indicates that a LEFT SHIFT is Present. Performed By: #### L 501.1400, L501.9520, L500.4050, L506.1000, L100.0100 #### [facility] [place] [address] [place], [address] Lymphocytes/100 WBC (Bld) 21.4 % Normal 19-41 [facility] Comment on above: Performed By: #### L 501.1400, L501.9520, L500.4050, L506.1000, L100.0100 #### [facility] [place] [facility] [address] [place], [address] MCH (RBC) [Entitic mass] 33.1 pg High 27.0-32.0 [facility] Comment on above: Performed By: #### L 501.1400, L501.9520, L500.4050, L506.1000, L100.0100 #### [facility] [place] [address] [place], [address] MCHC (RBC) [Mass/Vol] 32.7 g/dL Normal 32-36 [facility] Comment on above: Performed By: #### L 501.1400, L501.9520, L500.4050, L506.1000, L100.0100 #### [facility] [place] [address] [place], [address] MCV (RBC) [Entitic vol] 101.3 fL High 80-94 [facility] Comment on above: Performed By: #### L 501.1400, L501.9520, L500.4050, L506.1000, L100.0100 #### [facility] [place] [address] [place], [address] Monocytes/100 WBC (Bld) 9.0 % Normal 0-10 [facility] Comment on above: Performed By: #### L 501.1400, L501.9520, L500.4050, L506.1000, L100.0100 #### [facility] [address] [place], [address] Neutrophils/100 WBC (Bld) 65.0 % Normal 47-70 [facility] Comment on above: Performed By: #### L 501.1400, L501.9520, L500.4050, L506.1000, L100.0100 #### [facility] [place] [address] [place], [address] Nucleated RBC (Bld) [#/Vol] 0 10*3/uL Normal 0-5 [facility] Comment on above: Performed By: #### L 501.1400, L501.9520, L500.4050, L506.1000, L100.0100 #### [facility] [place] [address] [place], [address] Platelet mean volume (Bld) [Entitic vol] 13.1 fL High 6.2-12.0 [facility] Comment on above: Performed By: #### L 501.1400, L501.9520, L500.4050, L506.1000, L100.0100 #### [facility] [address] [place], [address] Platelets (Bld) [#/Vol] 161 10*3/uL Normal 150-450 [facility] Comment on above: Performed By: #### L 501.1400, L501.9520, L500.4050, L506.1000, L100.0100 #### [facility] [address] [place], [address] RBC (Bld) [#/Vol] 3.87 10*6/uL Low 4.6-6.2 [facility] Comment on above: Performed By: #### L 501.1400, L501.9520, L500.4050, L506.1000, L100.0100 #### [facility] [place] [address] [place], [address] RDW SD 50.7 fl High 35.1-43.9 [facility] Comment on above: Performed By: #### L 501.1400, L501.9520, L500.4050, L506.1000, L100.0100 #### [facility] [address] [place], [address] WBC (Bld) [#/Vol] 8.9 10*3/uL Normal 4.4-11.0 [facility] Comment on above: Performed By: #### L 501.1400, L501.9520, L500.4050, L506.1000, L100.0100 #### [facility] [address] [place], [address] Comprehensive Metabolic [facility] 03-15-2024 Albumin [Mass/Vol] 3.8 g/dL Normal 3.2-5.0 [facility] Comment on above: Performed By: #### L 501.1400, L501.9520, L500.4050, L506.1000, L100.0100 #### [facility] [address] [place], [address] Albumin/Globulin [Mass ratio] 1.0 {ratio} Normal 0.9-2.4 [facility] Comment on above: Performed By: #### L 501.1400, L501.9520, L500.4050, L506.1000, L100.0100 #### [facility] [address] [place], [address] ALK P 80 U/L Normal 45-117 [facility] Comment on above: Performed By: #### L 501.1400, L501.9520, L500.4050, L506.1000, L100.0100 #### [facility] [address] [place], [address] ALT [Catalytic activity/Vol] 29 U/L Normal 16-61 [facility] Comment on above: Performed By: #### L 501.1400, L501.9520, L500.4050, L506.1000, L100.0100 #### [facility] [address] [place], [address] AST [Catalytic activity/Vol] 17 U/L Normal 15-37 [facility] Comment on above: Performed By: #### L 501.1400, L501.9520, L500.4050, L506.1000, L100.0100 #### [facility] [address] [place], [address] Bilirubin [Mass/Vol] 0.40 mg/dL Normal 0.20-1.00 [facility] Comment on above: Result Comment: For patients on eltrombopag therapy, use of Dimension [place] TBIL is not recommended. Performed By: #### L 501.1400, L501.9520, L500.4050, L506.1000, L100.0100 #### [facility] [address] [place], [address] BUN/CRE 27.3 RATIO High 10-20 [facility] Comment on above: Performed By: #### L 501.1400, L501.9520, L500.4050, L506.1000, L100.0100 #### [facility] [address] [place], [address] CA,Total 9.3 mg/dL Normal 8.5-10.1 [facility] Comment on above: Performed By: #### L 501.1400, L501.9520, L500.4050, L506.1000, L100.0100 #### [facility] [address] [place], [address] Chloride [Moles/Vol] 105 mmol/L Normal 98-107 [facility] Comment on above: Performed By: #### L 501.1400, L501.9520, L500.4050, L506.1000, L100.0100 #### [facility] [address] [place], [address] CO2 [Moles/Vol] 29.0 mmol/L Normal 21.0-32.0 [facility] Comment on above: Performed By: #### L 501.1400, L501.9520, L500.4050, L506.1000, L100.0100 #### [facility] [address] [place], [address] Creatinine [Mass/Vol] 0.77 mg/dL Normal 0.70-1.30 [facility] Comment on above: Result Comment: The validity of the calculated GFR GFRAA in patients over 70 years has not been determined. Clinical correlation is essential. Performed By: #### L 501.1400, L501.9520, L500.4050, L506.1000, L100.0100 #### [facility] [address] [place], [address] EST GFR - AA 125 mL/min Normal >60 [facility] Comment on above: Result Comment: Afri can [place] GFR Calc Performed By: #### L 501.1400, L501.9520, L500.4050, L506.1000, L100.0100 #### [facility] [address] [place], [address] GAP 8 Normal 5-15 [facility] Comment on above: Performed By: #### L 501.1400, L501.9520, L500.4050, L506.1000, L100.0100 #### [facility] [address] [place], [address] GFR/1.73 sq M.predicted among non-blacks MDRD (S/P/Bld) [Vol rate/Area] 104 mL/min/{1.73_m2} Normal >60 [facility] Comment on above: Result Comment: Non- GFR Calc Performed By: #### L 501.1400, L501.9520, L500.4050, L506.1000, L100.0100 #### [facility] [address] [place], [address] Globulin (S) [Mass/Vol] 3.7 g/dL Normal 2.2-4.2 [facility] Comment on above: Performed By: #### L 501.1400, L501.9520, L500.4050, L506.1000, L100.0100 #### [facility] [address] [place], [address] Glucose [Mass/Vol] 87 mg/dL Normal 74-106 [facility] Comment on above: Performed By: #### L 501.1400, L501.9520, L500.4050, L506.1000, L100.0100 #### [facility] [address] [place], [address] Potassium [Moles/Vol] 4.1 mmol/L Normal 3.5-5.1 [facility] Comment on above: Performed By: #### L 501.1400, L501.9520, L500.4050, L506.1000, L100.0100 #### [facility] [address] [place], [address] Sodium [Moles/Vol] 142 mmol/L Normal 136-145 [facility] Comment on above: Performed By: #### L 501.1400, L501.9520, L500.4050, L506.1000, L100.0100 #### [facility] [address] [place], [address] T PROT 7.5 g/dL Normal 6.4-8.2 [facility] Comment on above: Performed By: #### L 501.1400, L501.9520, L500.4050, L506.1000, L100.0100 #### [facility] [address] [place], [address] Urea nitrogen [Mass/Vol] 21 mg/dL High 7-18 [facility] Comment on above: Performed By: #### L 501.1400, L501.9520, L500.4050, L506.1000, L100.0100 #### [facility] [address] [place], [address] Thyroid Stim Hormone (TSH)on 03-15-2024 TSH 0.955 uIU/mL Normal 0.358-3.740 [facility] Comment on above: Performed By: #### L 501.1400, L501.9520, L500.4050, L506.1000, L100.0100 #### [facility] [address] [place], [address] Uric Acidon 03-15-2024 URIC 4.9 mg/dL Normal 3.5-7.2 [facility] Comment on above: Result Comment: The drugs N-Acetylcysteine and Metamizole may falsely depress this assay. Performed By: #### L 501.1400, L501.9520, L500.4050, L506.1000, L100.0100 #### [facility] [address] [place], [address] Vitamin D,25 Hydroxyon 03-15 Vitamin D 25-OH 47.9 ng/mL Normal [facility] Comment on above: Result Comment: Lizz min D 25(OH) Status Range Deficiency <20 ng/mL (50nmol/L) Insufficiency 20 - 30 ng/mL (50 - 75 nmol/L) Sufficiency 30 - 100 ng/mL (75 - 250 nmol/L) Toxicity >100 ng/mL (>250 nmol/L) Performed By: #### L 501.1400, L501.9520, L500.4050, L506.1000, L100.0100 #### [facility] [address] [place], [address] BNP,B-Type NATRIURETIC PEPTI Frankie 03-09-2024 Natriuretic peptide B (Bld) [Mass/Vol] 44.8 pg/mL Normal 0-100 [facility] Comment on above: Performed By: #### L 500.2500, L500.3400, L500.4100, L503.6620, L501.9520 #### [facility] [address] [place], [address] Basic Metabolic Profile (BMP )on 03-09-2024 BUN/CRE 33.7 RATIO High 03-07 [facility] Comment on above: Performed By: #### L 500.2500, L500.3400, L500.4100, L503.6620, L501.9520 #### [facility] [address] [place], [address] CA,Total 9.4 mg/dL Normal 8.5-10.1 [facility] Comment on above: Performed By: #### L 500.2500, L500.3400, L500.4100, L503.6620, L501.9520 #### [facility] [address] [place], [address] Chloride [Moles/Vol] 106 mmol/L Normal 98-107 [facility] Comment on above: Performed By: #### L 500.2500, L500.3400, L500.4100, L503.6620, L501.9520 #### [facility] [address] [place], [address] CO2 [Moles/Vol] 29.0 mmol/L Normal 21.0-32.0 [facility] Comment on above: Performed By: #### L 500.2500, L500.3400, L500.4100, L503.6620, L501.9520 #### [facility] [address] [place], [address] Creatinine [Mass/Vol] 0.86 mg/dL Normal 0.70-1.30 [facility] Comment on above: Result Comment: The validity of the calculated GFR GFRAA in patients over 70 years has not been determined. Clinical correlation is essential. Performed By: #### L 500.2500, L500.3400, L500.4100, L503.6620, L501.9520 #### [facility] [address] [place], [address] EST GFR - AA 110 mL/min Normal >60 [facility] Comment on above: Result Comment: Afri can [place] GFR Calc Performed By: #### L 500.2500, L500.3400, L500.4100, L503.6620, L501.9520 #### [facility] [address] [place], [address] GAP 6 Normal 5-15 [facility] Comment on above: Performed By: #### L 500.2500, L500.3400, L500.4100, L503.6620, L501.9520 #### [facility] [address] [place], [address] GFR/1.73 sq M.predicted among non-blacks MDRD (S/P/Bld) [Vol rate/Area] 91 mL/min/{1.73_m2} Normal >60 [facility] Comment on above: Result Comment: Non- GFR Calc Performed By: #### L 500.2500, L500.3400, L500.4100, L503.6620, L501.9520 #### [facility] [address] [place], [address] Glucose [Mass/Vol] 94 mg/dL Normal 74-106 [facility] Comment on above: Performed By: #### L 500.2500, L500.3400, L500.4100, L503.6620, L501.9520 #### [facility] [address] [place], [address] Potassium [Moles/Vol] 4.0 mmol/L Normal 3.5-5.1 [facility] Comment on above: Performed By: #### L 500.2500, L500.3400, L500.4100, L503.6620, L501.9520 #### [facility] [address] [place], [address] Sodium [Moles/Vol] 140 mmol/L Normal 136-145 [facility] Comment on above: Performed By: #### L 500.2500, L500.3400, L500.4100, L503.6620, L501.9520 #### [facility] [address] [place], [address] Urea nitrogen [Mass/Vol] 29 mg/dL High 7-18 [facility] Comment on above: Performed By: #### L 500.2500, L500.3400, L500.4100, L503.6620, L501.9520 #### [facility] [address] [place], [address] Cardiology Visit Reporton Cardiology Visit Report [facility] [address] [place] [address] OFFICE VISIT Date of Service: 03/09/24 MR#: [id number] Acct: [id number] Name: ANTOINE PEREZ Rep #: [id number] : 1945 Provider: Dr. Sai Murphy MD Age/Sex: 78/M Location: [facility] Status: Signed HPI [facility] History of Present Illness Details: This is a 78-year-old gentleman that presents here today for a cardiovascular follow-up. Patient was admitted to [facility] on January 05, 2020 where he was [...] obstructive sleep apnea. 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 Normal [facility] Chest PA and Lateralon 03-09 Chest PA and Lateral [facility] Imaging [place] [address] Chest PA and Lateral MR#: [id number] Acct: [id number] Name: ANTOINE PEREZ Rep #: [id number] : 1945 M 78 From: Fredy Peres MD PCP: Dr. Avni Walker MD Status: REG CLI Study: Chest PA and Lateral Date of Exam: 03/09/24 Exam# [id number] Ordering [place]: [place] [id number] STUDY: X-RAY CHEST REASON FOR EXAM: Male, [...] Sai Murphy MD; Dr. Avni Walker MD Receiver Bulk System: Signed Normal [facility] Lipid Profileon 03-09-2024 Cholesterol [Mass/Vol] 154 mg/dL Normal 200 [facility] Comment on above: Result Comment: <200 mg/dL Desirable 200-240 mg/dL Borderline >240 mg/dL High Risk Performed By: #### L 500.2500, L500.3400, L500.4100, L503.6620, L501.9520 #### [facility] [address] [place], [address] Cholesterol in HDL [Mass/Vol] 57 mg/dL Normal [facility] Comment on above: Result Comment: The drugs N-Acetylcysteine and Metamizole may falsely depress this assay. Reference Range HDL <40 mg/dL Low HDL Cholesterol HDL >or= 60 mg/dL High HDL Cholesterol Performed By: #### L 500.2500, L500.3400, L500.4100, L503.6620, L501.9520 #### [facility] [address] [place], [address] Cholesterol in LDL [Mass/Vol] 70 mg/dL Normal 0-130 [facility] Comment on above: Performed By: #### L 500.2500, L500.3400, L500.4100, L503.6620, L501.9520 #### [facility] [address] [place], [address] Cholesterol in VLDL [Mass/Vol] 27 mg/dL Normal 5-40 [facility] Comment on above: Performed By: #### L 500.2500, L500.3400, L500.4100, L503.6620, L501.9520 #### [facility] [address] [place], [address] Triglyceride [Mass/Vol] 133 mg/dL Normal [facility] Comment on above: Result Comment: The drugs N-Acetylcysteine and Metamizole may falsely depress this assay. Serum Triglycerides Reference Interval Normal <150 mg/dL Borderline high 150 - 199 mg/dL High 200 - 499 mg/dL Very High > or = 500 mg/dL Performed By: #### L 500.2500, L500.3400, L500.4100, L503.6620, L501.9520 #### [facility] [address] [place], [address] Liver Profileon 03-09-2024 Albumin [Mass/Vol] 3.8 g/dL Normal 3.2-5.0 [facility] Comment on above: Performed By: #### L 500.2500, L500.3400, L500.4100, L503.6620, L501.9520 #### [facility] [address] [place], [address] ALK P 87 U/L Normal 45-117 [facility] Comment on above: Performed By: #### L 500.2500, L500.3400, L500.4100, L503.6620, L501.9520 #### [facility] [address] [place], [address] ALT [Catalytic activity/Vol] 25 U/L Normal 16-61 [facility] Comment on above: Performed By: #### L 500.2500, L500.3400, L500.4100, L503.6620, L501.9520 #### [facility] [address] [place], [address] AST [Catalytic activity/Vol] 14 U/L Low 15-37 [facility] Comment on above: Performed By: #### L 500.2500, L500.3400, L500.4100, L503.6620, L501.9520 #### [facility] [address] [place], [address] Bilirubin [Mass/Vol] 0.60 mg/dL Normal 0.20-1.00 [facility] Comment on above: Result Comment: For patients on eltrombopag therapy, use of Dimension [place] TBIL is not recommended. Performed By: #### L 500.2500, L500.3400, L500.4100, L503.6620, L501.9520 #### [facility] [address] [place], [address] Bilirubin.direct [Mass/Vol] 0.20 mg/dL Normal 0.00-0.30 [facility] Comment on above: Performed By: #### L 500.2500, L500.3400, L500.4100, L503.6620, L501.9520 #### [facility] [address] [place], [address] Globulin (S) [Mass/Vol] 3.6 g/dL Normal 2.2-4.2 [facility] Comment on above: Performed By: #### L 500.2500, L500.3400, L500.4100, L503.6620, L501.9520 #### [facility] [address] [place], [address] T PROT 7.4 g/dL Normal 6.4-8.2 [facility] Comment on above: Performed By: #### L 500.2500, L500.3400, L500.4100, L503.6620, L501.9520 #### [facility] [address] [place], [address] Thyroid Stim Hormone (TSH)on 03-09-2024 TSH 0.717 uIU/mL Normal 0.358-3.740 [facility] Comment on above: Performed By: #### L 500.2500, L500.3400, L500.4100, L503.6620, L501.9520 #### [facility] [address] [place], [address] Basophil percentageOrdered B y: Avni Walker on 09-17-2023 Chloride [Moles/Vol] 108 mmol/L 98-107 [facility] Glucose [Mass/Vol] 95 mg/dL 74-106 [facility] Potassium [Moles/Vol] 4.3 mmol/L 3.5-5.1 [facility] Sodium [Moles/Vol] 140 mmol/L 136-145 [facility] Laboratory - Chemistry and C hemistry - challengeOrdered By: Avni Walker on 09-17-2023 CO2 [Moles/Vol] 27.0 mmol/L 21.0-32.0 [facility] Urea nitrogen/Creatinine [Mass ratio] 33.6 mg/mg 10-20 [facility] No Panel InformationOrdered By: Avni Walker on 09-17-2023 Estimated GFR (MDRD) Amer 137 mL/min >60 [facility] Comment on above: GFR Calc Estimated GFR (MDRD) Non-Af Amer 113 mL/min >60 [facility] Comment on above: Non- GFR Calc Serum or plasma calcium brittnee urement (mass/volume)Ordered By: Avni Walker on 09-17-2023 Calcium [Mass/Vol] 9.1 mg/dL 8.5-10.1 [facility] Serum or plasma creatinine m easurement (mass/volume)Ordered By: Avni Walker on 09-17-2023 Creatinine [Mass/Vol] 0.71 mg/dL 0.70-1.30 [facility] Comment on above: The validity of the calculated GFR & GFRAA in patients over 70 years has not been determined. Clinical correlation is essential. Serum or plasma urea nitroge n measurement (mass/volume)Ordered By: Avni Walker on 09-17-2023 Urea nitrogen [Mass/Vol] 24 mg/dL 7-18 [facility] Thin prep Papanicolaou smear with manual screeningOrdered By: Avni Walker on 09-17-2023 Thin prep Papanicolaou smear with manual screening 5 5-15 [facility] Absolute lymphocyte countOrd ered By: Avni Walker on 09-09-2023 Lymphocytes Auto (Unsp spec) [#/Vol] 1.41 10*3/uL 0.83-4.51 [facility] Automated lymphocyte count a s percentage of total leukocytesOrdered By: Avni Walker on 09-09-2023 Lymphocytes/100 WBC Auto (Unsp spec) 24.4 % 19-41 [facility] Basophil percentageOrdered B y: Avni Walker on 09-09-2023 Basophils/100 WBC (Bld) 0.3 % 0-1 [facility] Bilirubin [Mass/Vol] 0.60 mg/dL 0.20-1.00 [facility] Comment on above: For patients on eltr ombopag therapy, use of Dimension [place] TBIL is not recommended. Chloride [Moles/Vol] 103 mmol/L 98-107 [facility] Eosinophils/100 WBC (Bld) 3.3 % 0-5 [facility] Glucose [Mass/Vol] 135 mg/dL 74-106 [facility] Comment on above: Fasting Glucose resu lt greater than or equal to 126 mg/dL suggests DIABETES MELLITUS per A.D.A. criteria. Hemoglobin (Bld) [Mass/Vol] 12.8 g/dL 13.0-16.5 [facility] Monocytes/100 WBC (Bld) 15.0 % 0-10 [facility] Neutrophils (Bld) [#/Vol] 3.3 10*3/uL 2.0-7.7 [facility] Neutrophils/100 WBC (Bld) 56.3 % 47-70 [facility] Potassium [Moles/Vol] 3.3 mmol/L 3.5-5.1 [facility] Protein [Mass/Vol] 7.4 g/dL 6.4-8.2 [facility] Sodium [Moles/Vol] 138 mmol/L 136-145 [facility] WBC (Bld) [#/Vol] 5.8 10*3/uL 4.4-11.0 [facility] Determination of erythrocyte mean corpuscular volume (MCV)Ordered By: Avni Walker on 09-09-2023 MCV (RBC) [Entitic vol] 101.0 fL 80-94 [facility] Erythrocyte distribution wid th ratioOrdered By: Avni Walker on 09-09-2023 Erythrocyte distribution width (RBC) [Ratio] 13.9 % 11.6-14.6 [facility] Erythrocyte distribution wid th standard deviationOrdered By: Avni Walker on 09-09-2023 Erythrocyte distribution width (RBC) [Entitic vol] 51.6 fL 35.1-43.9 [facility] Hematocrit Auto (Bld) [Volum e fraction]Ordered By: Avni Walker on 09-09-2023 Hematocrit (Bld) [Volume fraction] 40.1 % 40-54 [facility] Immature granulocytes/100 WB C Auto (Bld)Ordered By: Avni Walker on 09-09-2023 Immature granulocytes/100 WBC (Bld) 0.700 % 0.0-0.9 [facility] Comment on above: IG% - Immature Granu locytes (promyelocytes, myelocytes and metamyelocytes) > 1% indicates that a LEFT SHIFT is Present. Laboratory - Chemistry and C hemistry - challengeOrdered By: Avni Walker on 09-09-2023 Albumin/Globulin [Mass ratio] 1.0 {ratio} 0.9-2.4 [facility] ALP [Catalytic activity/Vol] 75 U/L 45-117 [facility] ALT [Catalytic activity/Vol] 24 U/L 16-61 [facility] CO2 [Moles/Vol] 29.0 mmol/L 21.0-32.0 [facility] Globulin (S) [Mass/Vol] 3.7 g/dL 2.2-4.2 [facility] Urea nitrogen/Creatinine [Mass ratio] 22.3 mg/mg 10-20 [facility] Laboratory - Hematology and Cell countsOrdered By: Avni Walker 09-09-2023 MCH (RBC) [Entitic mass] 32.2 pg 27.0-32.0 [facility] MCHC (RBC) [Mass/Vol] 31.9 g/dL 32-36 [facility] Nucleated RBC/100 WBC (Bld) [Ratio] 0 % 0-5 [facility] Platelet mean volume (Bld) [Entitic vol] 12.8 fL 6.2-12.0 [facility] Platelets (Bld) [#/Vol] 135 10*3/uL 150-450 [facility] No Panel InformationOrdered By: Avni Walker on 09-09-2023 Estimated GFR (MDRD) Amer 105 mL/min >60 [facility] Comment on above: GFR Calc Estimated GFR (MDRD) Non-Af Amer 87 mL/min >60 [facility] Comment on above: Non- GFR Calc Vitamin D 25-Hydroxy 76.0 ng/mL [facility] Comment on above: Vitamin D 25(OH) Sta tus Range Deficiency <20 ng/mL (50nmol/L) Insufficiency 20 - 30 ng/mL (50 - 75 nmol/L) Sufficiency 30 - 100 ng/mL (75 - 250 nmol/L) Toxicity >100 ng/mL (>250 nmol/L) RBC Auto (Bld) [#/Vol]Ordere d By: Avni Walker on 09-09-2023 RBC (Bld) [#/Vol] 3.97 10*6/uL 4.6-6.2 [facility] Serum or plasma calcium brittnee urement (mass/volume)Ordered By: Avni Walker on 09-09-2023 Calcium [Mass/Vol] 9.0 mg/dL 8.5-10.1 [facility] Serum or plasma creatinine m easurement (mass/volume)Ordered By: Avni Walker on 09-09-2023 Creatinine [Mass/Vol] 0.90 mg/dL 0.70-1.30 [facility] Comment on above: The validity of the calculated GFR & GFRAA in patients over 70 years has not been determined. Clinical correlation is essential. Serum or plasma thyroid stim ulating hormone (TSH) measurement (units/volume)Ordered By: Avni Walker 09-09-2023 TSH Qn 0.63 uIU/mL 0.358-3.74 [facility] Serum or plasma urea nitroge n measurement (mass/volume)Ordered By: Avni Walker 09-09-2023 Urea nitrogen [Mass/Vol] 20 mg/dL 7-18 [facility] Serum or plasma uric acid me asurement (mass/volume)Ordered By: Avni Walker 09-09-2023 Urate [Mass/Vol] 5.2 mg/dL 3.5-7.2 [facility] Comment on above: The drugs N-Acetylcy steine and Metamizole may falsely depress this assay. Thin prep Papanicolaou smear with manual screeningOrdered By: Avni Walker on 09-09-2023 Thin prep Papanicolaou smear with manual screening 3.7 g/dL 3.2-5.0 [facility] Thin prep Papanicolaou smear with manual screening 14 U/L 15-37 [facility] Thin prep Papanicolaou smear with manual screening 6 5-15 [facility] Absolute lymphocyte countOrd ered By: Khanh Doran on 03-13-2023 Lymphocytes Auto (Unsp spec) [#/Vol] 1.72 10*3/uL 0.83-4.51 [facility] Basophil percentageOrdered B y: Khanh Doran on 03-13-2023 Basophils/100 WBC (Bld) 0.2 % 0-1 [facility] Bilirubin [Mass/Vol] 0.50 mg/dL 0.20-1.00 [facility] Comment on above: For patients on eltr ombopag therapy, use of Dimension [place] TBIL is not recommended. Chloride [Moles/Vol] 103 mmol/L 98-107 [facility] Eosinophils/100 WBC (Bld) 3.3 % 0-5 [facility] Glucose [Mass/Vol] 130 mg/dL 74-106 [facility] Comment on above: Fasting Glucose resu lt greater than or equal to 126 mg/dL suggests DIABETES MELLITUS per A.D.A. criteria. Neutrophils (Bld) [#/Vol] 5.8 10*3/uL 2.0-7.7 [facility] Neutrophils/100 WBC (Bld) 67.9 % 47-70 [facility] Potassium [Moles/Vol] 3.9 mmol/L 3.5-5.1 [facility] Protein [Mass/Vol] 7.4 g/dL 6.4-8.2 [facility] Sodium [Moles/Vol] 138 mmol/L 136-145 [facility] WBC (Bld) [#/Vol] 8.6 10*3/uL 4.4-11.0 [facility] Blood erythrocytes count (nu mber/volume)Ordered By: Khanh Doran on 03-13-2023 RBC (Bld) [#/Vol] 3.87 10*6/uL 4.6-6.2 [facility] Blood hemoglobin measurement (mass/volume)Ordered By: Khanh Doran on 03-13-2023 Hemoglobin (Bld) [Mass/Vol] 12.7 g/dL 13.0-16.5 [facility] Blood lymphocytes/100 leukoc ytesOrdered By: Khanh Doran on 03-13-2023 Lymphocytes/100 WBC (Bld) 20.0 % 19-41 [facility] Blood monocytes/100 leukocyt esOrdered By: Khanh Doran on 03-13-2023 Monocytes/100 WBC (Bld) 8.3 % 0-10 [facility] Blood platelet mean volumeOr dered By: Khanh Doran on 03-13-2023 Platelet mean volume (Bld) [Entitic vol] 12.7 fL 6.2-12.0 [facility] Determination of erythrocyte mean corpuscular volume (MCV)Ordered By: Khanh Doran on 03-13-2023 MCV (RBC) [Entitic vol] 102.8 fL 80-94 [facility] Hematocrit Auto (Bld) [Volum e fraction]Ordered By: Khanh Doran on 03-13-2023 Hematocrit (Bld) [Volume fraction] 39.8 % 40-54 [facility] Laboratory - Chemistry and C hemistry - challengeOrdered By: Khanh Doran on 03-13-2023 ALP [Catalytic activity/Vol] 82 U/L 45-117 [facility] ALT [Catalytic activity/Vol] 27 U/L 16-61 [facility] CO2 [Moles/Vol] 26.0 mmol/L 21.0-32.0 [facility] Globulin (S) [Mass/Vol] 3.7 g/dL 2.2-4.2 [facility] Urea nitrogen/Creatinine [Mass ratio] 22.4 mg/mg 10-20 [facility] Laboratory - Hematology and Cell countsOrdered By: Khanh Doran on 03-13-2023 Erythrocyte distribution width (RBC) [Entitic vol] 52.4 fL 35.1-43.9 [facility] Erythrocyte distribution width (RBC) [Ratio] 13.7 % 11.6-14.6 [facility] Immature granulocytes/100 WBC (Bld) 0.300 % 0.0-0.9 [facility] Comment on above: IG% - Immature Granu locytes (promyelocytes, myelocytes and metamyelocytes) > 1% indicates that a LEFT SHIFT is Present. MCH (RBC) [Entitic mass] 32.8 pg 27.0-32.0 [facility] Nucleated RBC/100 WBC (Bld) [Ratio] 0 % 0-5 [facility] MCHC Auto (RBC) [Mass/Vol]Or dered By: Khanh Doran on 03-13-2023 MCHC (RBC) [Mass/Vol] 31.9 g/dL 32-36 [facility] No Panel InformationOrdered By: Khanh Doran on 03-13-2023 Estimated GFR (MDRD) Amer 95 mL/min >60 [facility] Comment on above: GFR Calc Estimated GFR (MDRD) Non-Af Amer 78 mL/min >60 [facility] Comment on above: Non- GFR Calc Thyroid Stimulating Hormone (TSH) 0.99 uIU/mL 0.358-3.74 [facility] Vitamin D 25-Hydroxy 61.3 ng/mL [facility] Comment on above: Vitamin D 25(OH) Sta tus Range Deficiency <20 ng/mL (50nmol/L) Insufficiency 20 - 30 ng/mL (50 - 75 nmol/L) Sufficiency 30 - 100 ng/mL (75 - 250 nmol/L) Toxicity >100 ng/mL (>250 nmol/L) Platelets bldOrdered By: Claribel Doran on 03-13-2023 Platelets (Bld) [#/Vol] 163 10*3/uL 150-450 [facility] Serum or plasma albumin brittnee urement (mass/volume)Ordered By: Khanh Doran on 03-13-2023 Albumin [Mass/Vol] 3.7 g/dL 3.2-5.0 [facility] Serum or plasma albumin/glob ulin mass ratioOrdered By: Khanh Doran on 03-13-2023 Albumin/Globulin [Mass ratio] 1.0 {ratio} 0.9-2.4 [facility] Serum or plasma calcium brittnee urement (mass/volume)Ordered By: Khanh Doran on 03-13-2023 Calcium [Mass/Vol] 8.8 mg/dL 8.5-10.1 [facility] Serum or plasma creatinine m easurement (mass/volume)Ordered By: Khanh Doran on 03-13-2023 Creatinine [Mass/Vol] 0.98 mg/dL 0.70-1.30 [facility] Comment on above: The validity of the calculated GFR & GFRAA in patients over 70 years has not been determined. Clinical correlation is essential. Serum or plasma urea nitroge n measurement (mass/volume)Ordered By: Khanh Doran on 03-13-2023 Urea nitrogen [Mass/Vol] 22 mg/dL 7-18 [facility] Serum or plasma uric acid me asurement (mass/volume)Ordered By: Khanh Doran on 03-13-2023 Urate [Mass/Vol] 4.7 mg/dL 3.5-7.2 [facility] Comment on above: The drugs N-Acetylcy steine and Metamizole may falsely depress this assay. Thin prep Papanicolaou smear with manual screeningOrdered By: Khanh Doran on 03-13-2023 Thin prep Papanicolaou smear with manual screening 13 U/L 15-37 [facility] Thin prep Papanicolaou smear with manual screening 9 5-15 [facility] Absolute lymphocyte countOrd ered By: Dr. Walker on 09-04-2022 Lymphocytes Auto (Unsp spec) [#/Vol] 1.42 10*3/uL 0.83-4.51 [facility] Basophil percentageOrdered B y: Dr. Walker on 09-04-2022 Chloride [Moles/Vol] 106 mmol/L 98-107 [facility] Glucose [Mass/Vol] 120 mg/dL 74-106 [facility] Comment on above: Fasting Glucose resu lt from 100 to 125 mg/dL suggests IMPAIRED HOMEOSTASIS per A.D.A. criteria. Potassium [Moles/Vol] 3.5 mmol/L 3.5-5.1 [facility] Sodium [Moles/Vol] 138 mmol/L 136-145 [facility] Basophils/100 WBC (Bld) 0.2 % 0-1 [facility] Bilirubin [Mass/Vol] 0.40 mg/dL 0.20-1.00 [facility] Comment on above: For patients on eltr ombopag therapy, use of Dimension [place] TBIL is not recommended. Eosinophils/100 WBC (Bld) 2.5 % 0-5 [facility] Neutrophils (Bld) [#/Vol] 6.4 10*3/uL 2.0-7.7 [facility] Neutrophils/100 WBC (Bld) 70.5 % 47-70 [facility] Protein [Mass/Vol] 7.0 g/dL 6.4-8.2 [facility] WBC (Bld) [#/Vol] 9.1 10*3/uL 4.4-11.0 [facility] Blood erythrocytes count (nu mber/volume)Ordered By: Dr. Walker on 09-04-2022 RBC (Bld) [#/Vol] 3.78 10*6/uL 4.6-6.2 [facility] Blood hemoglobin measurement (mass/volume)Ordered By: Dr. Walker on 09-04-2022 Hemoglobin (Bld) [Mass/Vol] 12.6 g/dL 13.0-16.5 [facility] Blood lymphocytes/100 leukoc ytesOrdered By: Dr. Walker on 09-04-2022 Lymphocytes/100 WBC (Bld) 15.7 % 19-41 [facility] Blood monocytes/100 leukocyt esOrdered By: Dr. Walker on 09-04-2022 Monocytes/100 WBC (Bld) 10.8 % 0-10 [facility] Blood platelet mean volumeOr dered By: Dr. Walker on 09-04-2022 Platelet mean volume (Bld) [Entitic vol] 12.5 fL 6.2-12.0 [facility] Determination of erythrocyte mean corpuscular volume (MCV)Ordered By: Dr. Walker on 09-04-2022 MCV (RBC) [Entitic vol] 102.4 fL 80-94 [facility] Hematocrit Auto (Bld) [Volum e fraction]Ordered By: Dr. Walker on 09-04-2022 Hematocrit (Bld) [Volume fraction] 38.7 % 40-54 [facility] Laboratory - Chemistry and C hemistry - challengeOrdered By: Dr. Walker on 09-04-2022 CO2 [Moles/Vol] 27.0 mmol/L 21.0-32.0 [facility] Urea nitrogen/Creatinine [Mass ratio] 29.2 mg/mg 10-20 [facility] ALP [Catalytic activity/Vol] 92 U/L 45-117 [facility] ALT [Catalytic activity/Vol] 30 U/L 16-61 [facility] Globulin (S) [Mass/Vol] 3.3 g/dL 2.2-4.2 [facility] Laboratory - Hematology and Cell countsOrdered By: Dr. Walker on 09-04-2022 Erythrocyte distribution width (RBC) [Entitic vol] 51.6 fL 35.1-43.9 [facility] Erythrocyte distribution width (RBC) [Ratio] 13.5 % 11.6-14.6 [facility] Immature granulocytes/100 WBC (Bld) 0.300 % 0.0-0.9 [facility] Comment on above: IG% - Immature Granu locytes (promyelocytes, myelocytes and metamyelocytes) > 1% indicates that a LEFT SHIFT is Present. MCH (RBC) [Entitic mass] 33.3 pg 27.0-32.0 [facility] Nucleated RBC/100 WBC (Bld) [Ratio] 0 % 0-5 [facility] MCHC Auto (RBC) [Mass/Vol]Or dered By: Dr. Walker on 09-04-2022 MCHC (RBC) [Mass/Vol] 32.6 g/dL 32-36 [facility] No Panel InformationOrdered By: Dr. Walker on 09-04-2022 Estimated GFR (MDRD) Amer 102 mL/min >60 [facility] Comment on above: GFR Calc Estimated GFR (MDRD) Non-Af Amer 84 mL/min >60 [facility] Comment on above: Non- GFR Calc Thyroid Stimulating Hormone (TSH) 0.87 uIU/mL 0.358-3.74 [facility] Vitamin D 25-Hydroxy 71.4 ng/mL [facility] Comment on above: Vitamin D 25(OH) Sta tus Range Deficiency <20 ng/mL (50nmol/L) Insufficiency 20 - 30 ng/mL (50 - 75 nmol/L) Sufficiency 30 - 100 ng/mL (75 - 250 nmol/L) Toxicity >100 ng/mL (>250 nmol/L) Platelets bldOrdered By: Dr. Walker on 09-04-2022 Platelets (Bld) [#/Vol] 155 10*3/uL 150-450 [facility] Serum or plasma albumin brittnee urement (mass/volume)Ordered By: Dr. Walker on 09-04-2022 Albumin [Mass/Vol] 3.7 g/dL 3.2-5.0 [facility] Serum or plasma albumin/glob ulin mass ratioOrdered By: Dr. Walker on 09-04-2022 Albumin/Globulin [Mass ratio] 1.1 {ratio} 0.9-2.4 [facility] Serum or plasma calcium brittnee urement (mass/volume)Ordered By: Dr. Walker on 09-04-2022 Calcium [Mass/Vol] 9.2 mg/dL 8.5-10.1 [facility] Serum or plasma creatinine m easurement (mass/volume)Ordered By: Dr. Walker on 09-04-2022 Creatinine [Mass/Vol] 0.93 mg/dL 0.70-1.30 [facility] Comment on above: The validity of the calculated GFR & GFRAA in patients over 70 years has not been determined. Clinical correlation is essential. Serum or plasma urea nitroge n measurement (mass/volume)Ordered By: Dr. Walker on 09-04-2022 Urea nitrogen [Mass/Vol] 27 mg/dL 7-18 [facility] Serum or plasma uric acid me asurement (mass/volume)Ordered By: Dr. Walker on 09-04-2022 Urate [Mass/Vol] 4.5 mg/dL 3.5-7.2 [facility] Comment on above: The drugs N-Acetylcy steine and Metamizole may falsely depress this assay. Thin prep Papanicolaou smear with manual screeningOrdered By: Dr. Walker on 09-04-2022 Thin prep Papanicolaou smear with manual screening 5 5-15 [facility] Thin prep Papanicolaou smear with manual screening 20 U/L 15-37 [facility] No Panel InformationOrdered By: Dr. Corea on 07-10-2022 Prostate Specific Antigen Total 3.54 ng/mL 0.0-4.0 [facility] Comment on above: This test was perfor med using the TPSA assay method for [employer] chemistry system. Values obtained with differentassay methods cannot be used interchangably.When changing PSA assays in the course of monitoring apatient, additional sequential testing should be carriedout to confirm baseline values. Absolute lymphocyte counton 03-06-2022 Lymphocytes Auto (Unsp spec) [#/Vol] 1.72 10*3/uL 0.83-4.51 [facility] Work Phone: Basophil percentageon 2021 Basophils/100 WBC (Bld) 0.3 % 0-1 [facility] Work Phone: Bilirubin [Mass/Vol] 0.50 mg/dL 0.20-1.00 [facility] Work Phone: Comment on above: For patients on eltr ombopag therapy, use of Dimension [place] TBIL is not recommended. Chloride [Moles/Vol] 109 mmol/L 98-107 [facility] Work Phone: Eosinophils/100 WBC (Bld) 4.1 % 0-5 [facility] Work Phone: Glucose [Mass/Vol] 83 mg/dL 74-106 [facility] Work Phone: Neutrophils (Bld) [#/Vol] 5.7 10*3/uL 2.0-7.7 [facility] Work Phone: Neutrophils/100 WBC (Bld) 65.7 % 47-70 [facility] Work Phone: Potassium [Moles/Vol] 3.8 mmol/L 3.5-5.1 [facility] Work Phone: Protein [Mass/Vol] 7.3 g/dL 6.4-8.2 [facility] Work Phone: Sodium [Moles/Vol] 144 mmol/L 136-145 [facility] Work Phone: WBC (Bld) [#/Vol] 8.7 10*3/uL 4.4-11.0 [facility] Work [facility]: Blood erythrocytes count (nu mber/volume)on 03-06-2022 RBC (Bld) [#/Vol] 3.96 10*6/uL 4.6-6.2 [facility] Work [facility]: Blood hemoglobin measurement (mass/volume)on 03-06-2022 Hemoglobin (Bld) [Mass/Vol] 13.0 g/dL 13.0-16.5 [facility] Work Phone: Blood lymphocytes/100 leukoc yteson 03-06-2022 Lymphocytes/100 WBC (Bld) 19.8 % 19-41 [facility] Work Phone: Blood monocytes/100 leukocyt eson 03-06-2022 Monocytes/100 WBC (Bld) 9.8 % 0-10 [facility] Work Phone: Blood platelet mean volumeon 03-06-2022 Platelet mean volume (Bld) [Entitic vol] 13.4 fL 6.2-12.0 [facility] Work Phone: Determination of erythrocyte mean corpuscular volume (MCV)on 03-06-2022 MCV (RBC) [Entitic vol] 102.5 fL 80-94 [facility] Work Phone: Hematocrit Auto (Bld) [Volum e fraction]on 03-06-2022 Hematocrit (Bld) [Volume fraction] 40.6 % 40-54 [facility] Work Phone: Laboratory - Chemistry and C hemistry - challengeon 03-06-2022 ALP [Catalytic activity/Vol] 93 U/L 45-117 [facility] Work Phone: ALT [Catalytic activity/Vol] 26 U/L 16-61 [facility] Work Phone: CO2 [Moles/Vol] 29.0 mmol/L 21.0-32.0 [facility] Work Phone: Globulin (S) [Mass/Vol] 3.5 g/dL 2.2-4.2 [facility] Work Phone: [phone] Urea nitrogen/Creatinine [Mass ratio] 26.7 mg/mg 10-20 [facility] Work Phone: [phone] Laboratory - Hematology and Cell countson 03-06-2022 Erythrocyte distribution width (RBC) [Entitic vol] 53.2 fL 35.1-43.9 [facility] Work Phone: [phone] Erythrocyte distribution width (RBC) [Ratio] 13.9 % 11.6-14.6 [facility] Work Phone: [phone] Immature granulocytes/100 WBC (Bld) 0.300 % 0.0-0.9 [facility] Work Phone: [phone] Comment on above: IG% - Immature Granu locytes (promyelocytes, myelocytes and metamyelocytes) > 1% indicates that a LEFT SHIFT is Present. MCH (RBC) [Entitic mass] 32.8 pg 27.0-32.0 [facility] Work Phone: [phone] Nucleated RBC/100 WBC (Bld) [Ratio] 0 % 0-5 [facility] Work Phone: [phone] MCHC Auto (RBC) [Mass/Vol]on 03-06-2022 MCHC (RBC) [Mass/Vol] 32.0 g/dL 32-36 [facility] Work Phone: [phone] Panel Informationon 03-06 Estimated GFR (MDRD) Amer 92 mL/min >60 [facility] Work Phone: [phone] Comment on above: GFR Calc Estimated GFR (MDRD) Non-Af Amer 76 mL/min >60 [facility] Work Phone: [phone] Comment on above: Non- GFR Calc Thyroid Stimulating Hormone (TSH) 0.76 uIU/mL 0.358-3.74 [facility] Work Phone: [phone] Vitamin D 25-Hydroxy 68.6 ng/mL [facility] Work Phone: [phone] Comment on above: Vitamin D 25(OH) Sta tus Range Deficiency <20 ng/mL (50nmol/L) Insufficiency 20 - 30 ng/mL (50 - 75 nmol/L) Sufficiency 30 - 100 ng/mL (75 - 250 nmol/L) Toxicity >100 ng/mL (>250 nmol/L) Platelets bldon 03-06-2022 Platelets (Bld) [#/Vol] 182 10*3/uL 150-450 [facility] Work Phone: Serum or plasma albumin brittnee urement (mass/volume)on 03-06-2022 Albumin [Mass/Vol] 3.8 g/dL 3.2-5.0 [facility] Work Phone: Serum or plasma albumin/glob ulin mass ratioon 03-06-2022 Albumin/Globulin [Mass ratio] 1.1 {ratio} 0.9-2.4 [facility] Work Phone: Serum or plasma calcium brittnee urement (mass/volume)on 03-06-2022 Calcium [Mass/Vol] 9.1 mg/dL 8.5-10.1 [facility] Work Phone: Serum or plasma creatinine m easurement (mass/volume)on 03-06-2022 Creatinine [Mass/Vol] 1.01 mg/dL 0.70-1.30 [facility] Work Phone: Comment on above: The validity of the calculated GFR & GFRAA in patients over 70 years has not been determined. Clinical correlation is essential. Serum or plasma urea nitroge n measurement (mass/volume)on 03-06-2022 Urea nitrogen [Mass/Vol] 27 mg/dL 7-18 [facility] Work Phone: Serum or plasma uric acid me asurement (mass/volume)on 03-06-2022 Urate [Mass/Vol] 4.3 mg/dL 3.5-7.2 [facility] Work Phone: Comment on above: The drugs N-Acetylcy steine and Metamizole may falsely depress this assay. Thin prep Papanicolaou smear with manual screeningon 03-06-2022 Thin prep Papanicolaou smear with manual screening 14 U/L 15-37 [facility] Work Phone: Thin prep Papanicolaou smear with manual screening 6 5-15 [facility] Work Phone: [phone] Laboratory - Microbiology an d Antimicrobial susceptibilityon 01-07-2022 SARS-CoV-2 (COVID-19) RNA PADDY+probe Ql (Unsp spec) Detected Not Detect [facility] Work Phone: [phone] Comment on above: Normal Reference Ran ge: Not DetectedMethod:(RT-PCR) real-time reverse transcriptase PCRLuminex MALLORY Instrument*The Food and Drug Administration (FDA) has issued an Emergency Use Authorization (EAU) for the Boxcar SARS-CoV-2 Assay for the rapid detection of [...] Auto (Unsp spec) [#/Vol] 1.76 10*3/uL 0.83-4.51 [facility] Work Phone: [phone] Basophil percentageon 2021 Basophils/100 WBC (Bld) 0.2 % 0-1 [facility] Work Phone: [phone] Bilirubin [Mass/Vol] 0.50 mg/dL 0.20-1.00 [facility] Work Phone: [phone] Comment on above: For patients on eltr ombopag therapy, use of Dimension [place] TBIL is not recommended. Chloride [Moles/Vol] 104 mmol/L 98-107 [facility] Work Phone: [phone] Eosinophils/100 WBC (Bld) 4.0 % 0-5 [facility] Work Phone: Glucose [Mass/Vol] 95 mg/dL 74-106 [facility] Work Phone: Neutrophils (Bld) [#/Vol] 6.2 10*3/uL 2.0-7.7 [facility] Work Phone: [phone] Neutrophils/100 WBC (Bld) 66.8 % 47-70 [facility] Work Phone: [phone] Potassium [Moles/Vol] 4.3 mmol/L 3.5-5.1 [facility] Work Phone: [phone] Protein [Mass/Vol] 7.6 g/dL 6.4-8.2 [facility] Work Phone: [phone] Sodium [Moles/Vol] 141 mmol/L 136-145 [facility] Work Phone: [phone] WBC (Bld) [#/Vol] 9.2 10*3/uL 4.4-11.0 [facility] Work Phone: [phone] Blood erythrocytes count (nu mber/volume)on 09-05-2021 RBC (Bld) [#/Vol] 3.79 10*6/uL 4.6-6.2 [facility] Work Phone: [phone] Blood hemoglobin measurement (mass/volume)on 09-05-2021 Hemoglobin (Bld) [Mass/Vol] 12.4 g/dL 13.0-16.5 [facility] Work Phone: [phone] Blood lymphocytes/100 leukoc yteson 09-05-2021 Lymphocytes/100 WBC (Bld) 19.1 % 19-41 [facility] Work Phone: [phone] Blood monocytes/100 leukocyt eson 09-05-2021 Monocytes/100 WBC (Bld) 9.5 % 0-10 [facility] Work Phone: Blood platelet mean volumeon 09-05-2021 Platelet mean volume (Bld) [Entitic vol] 13.0 fL 6.2-12.0 [facility] Work Phone: Determination of erythrocyte mean corpuscular volume (MCV)on 09-05-2021 MCV (RBC) [Entitic vol] 101.6 fL 80-94 [facility] Work Phone: [phone] Hematocrit Auto (Bld) [Volum e fraction]on 09-05-2021 Hematocrit (Bld) [Volume fraction] 38.5 % 40-54 [facility] Work Phone: [phone] Laboratory - Chemistry and C hemistry - challengeon 09-05-2021 ALP [Catalytic activity/Vol] 95 U/L 45-117 [facility] Work Phone: [phone] ALT [Catalytic activity/Vol] 29 U/L 16-61 [facility] Work Phone: [phone] CO2 [Moles/Vol] 30.0 mmol/L 21.0-32.0 [facility] Work Phone: [phone] Globulin (S) [Mass/Vol] 3.8 g/dL 2.2-4.2 [facility] Work Phone: [phone] Urea nitrogen/Creatinine [Mass ratio] 33.8 mg/mg - [facility] Work Phone: [phone] Laboratory - Hematology and Cell countson 09-05-2021 Erythrocyte distribution width (RBC) [Entitic vol] 51.9 fL 35.1-43.9 [facility] Work Phone: [phone] Erythrocyte distribution width (RBC) [Ratio] 13.9 % 11.6-14.6 [facility] Work Phone: [phone] Immature granulocytes/100 WBC (Bld) 0.400 % 0.0-0.9 [facility] Work Phone: [phone] Comment on above: IG% - Immature Granu locytes (promyelocytes, myelocytes and metamyelocytes) > 1% indicates that a LEFT SHIFT is Present. MCH (RBC) [Entitic mass] 32.7 pg 27.0-32.0 [facility] Work Phone: Nucleated RBC/100 WBC (Bld) [Ratio] 0 % 0-5 [facility] Work Phone: [phone] MCHC Auto (RBC) [Mass/Vol]on 09-05-2021 MCHC (RBC) [Mass/Vol] 32.2 g/dL 32-36 [facility] Work Phone: No Panel Informationon 09-05 Estimated GFR (MDRD) Amer 99 mL/min >60 [facility] Work Phone: Comment on above: GFR Calc Estimated GFR (MDRD) Non-Af Amer 82 mL/min >60 [facility] Work Phone: [phone] Comment on above: Non- GFR Calc Thyroid Stimulating Hormone (TSH) 1.01 uIU/mL 0.358-3.74 [facility] Work Phone: [phone] Vitamin D 25-Hydroxy 56.0 ng/mL [facility] Work Phone: Comment on above: Vitamin D 25(OH) Sta tus Range Deficiency <20 ng/mL (50nmol/L) Insufficiency 20 - 30 ng/mL (50 - 75 nmol/L) Sufficiency 30 - 100 ng/mL (75 - 250 nmol/L) Toxicity >100 ng/mL (>250 nmol/L) Platelets bldon 09-05-2021 Platelets (Bld) [#/Vol] 194 10*3/uL 150-450 [facility] Work Phone: [phone] Serum or plasma albumin brittnee urement (mass/volume)on 09-05-2021 Albumin [Mass/Vol] 3.8 g/dL 3.2-5.0 [facility] Work Phone: [phone] Serum or plasma albumin/glob ulin mass ratioon 09-05-2021 Albumin/Globulin [Mass ratio] 1.0 {ratio} 0.9-2.4 [facility] Work Phone: [phone] Serum or plasma calcium brittnee urement (mass/volume)on 09-05-2021 Calcium [Mass/Vol] 8.6 mg/dL 8.5-10.1 [facility] Work Phone: [phone] Serum or plasma creatinine m easurement (mass/volume)on 09-05-2021 Creatinine [Mass/Vol] 0.95 mg/dL 0.70-1.30 [facility] Work Phone: Comment on above: The validity of the calculated GFR & GFRAA in patients over 70 years has not been determined. Clinical correlation is essential. Serum or plasma urea nitroge n measurement (mass/volume)on 09-05-2021 Urea nitrogen [Mass/Vol] 32 mg/dL 7-18 [facility] Work Phone: Serum or plasma uric acid me asurement (mass/volume)on 09-05-2021 Urate [Mass/Vol] 5.1 mg/dL 3.5-7.2 [facility] Work Phone: Comment on above: The drugs N-Acetylcy steine and Metamizole may falsely depress this assay. Thin prep Papanicolaou smear with manual screeningon 09-05-2021 Thin prep Papanicolaou smear with manual screening 15 U/L 15-37 [facility] Work Phone: Thin prep Papanicolaou smear with manual screening 7 5-15 [facility] Work Phone: No Panel Informationon 07-04 Prostate Specific Antigen Total 3.94 ng/mL 0.0-4.0 [facility] Work Phone: Comment on above: This test was perfor med using the TPSA assay method for the[facility]. Values obtained with differentassay methods cannot be used interchangably.When changing PSA assays in the course of monitoring apatient, additional sequential testing should be carriedout to confirm baseline values. Basophil percentageon 2021 Bilirubin [Mass/Vol] 0.50 mg/dL 0.20-1.00 [facility] Work Phone: Comment on above: For patients on eltr ombopag therapy, use of Dimension [place] TBIL is not recommended. Cholesterol [Mass/Vol] 158 mg/dL <200 [facility] Work Phone: Comment on above: <200 mg/dL Desirable 200-240 mg/dL Borderline >240 mg/dL High Risk Protein [Mass/Vol] 7.9 g/dL 6.4-8.2 [facility] Work Phone: [phone] Triglyceride [Mass/Vol] 128 mg/dL [facility] Work Phone: [phone] Comment on above: The drugs N-Acetylcy steine and Metamizole may falsely depress this assay.Serum Triglycerides Reference Interval Normal <150 mg/dL Borderline high 150 - 199 mg/dL High 200 - 499 mg/dL Very High > or = 500 mg/dL Direct bilirubinon Bilirubin.direct [Mass/Vol] 0.17 mg/dL 0.00-0.30 [facility] Work Phone: [phone] Laboratory - Chemistry and C hemistry - challengeon 06-26-2021 ALP [Catalytic activity/Vol] 96 U/L 45-117 [facility] Work Phone: [phone] ALT [Catalytic activity/Vol] 25 U/L 16-61 [facility] Work Phone: [phone] Globulin (S) [Mass/Vol] 4.0 g/dL 2.2-4.2 [facility] Work Phone: [phone] Natriuretic peptide B (Bld) [Mass/Vol] 74.6 pg/mL 0-100 [facility] Work Phone: [phone] Serum or plasma albumin brittnee urement (mass/volume)on 06-26-2021 Albumin [Mass/Vol] 3.9 g/dL 3.2-5.0 [facility] Work Phone: [phone] Serum or plasma cholesterol in HDL measurement (mass/volume)on 06-26-2021 Cholesterol in HDL [Mass/Vol] 51 mg/dL [facility] Work Phone: [phone] Comment on above: The drugs N-Acetylcy steine and Metamizole may falsely depress this assay. Reference Range HDL <40 mg/dL Low HDL Cholesterol HDL >or= 60 mg/dL High HDL Cholesterol Serum or plasma cholesterol in VLDL measurement (mass/volume)on 06-26-2021 Cholesterol in VLDL [Mass/Vol] 26 mg/dL 5-40 [facility] Work Phone: [phone] Serum or plasma low density lipoprotein (LDL) cholesterol measurement (mass/volume)on 06-26-2021 Cholesterol in LDL [Mass/Vol] 81 mg/dL 0-130 [facility] Work Phone: Thin prep Papanicolaou smear with manual screeningon 06-26-2021 Thin prep Papanicolaou smear with manual screening 12 U/L 15-37 [facility] Work Phone: CNNURSEon 08-04-2020 CNNURSE Nurse Visit (COVAMD) ANTOINE PEREZ ([id number]) 1945 M Date Time Provider Department 08/04/20 HOWARD HAQ (ALBERTINA) COVAMD During your visit today, we recorded the following information about you: Allergies As of Date: 08/04/2020 Noted Allergy Reaction SULFA (SULFONAMIDE ANTIBIOTICS) 02/06/2012 4 - Hives Comments: childhood Date Reviewed: 10/12/2019 Reviewed by: Jeferson Chirinos Ma - Fully Assessed Order(s):[facility] - Eye Tracking SARS-COV-2 VACCINE 2D DOSE APPT [[id number]] Order #: [id number] Prescriptions as of 08/04/2020 Sig: MELOXICAM 15 [...] total knee arthroplasty, right [Z96.651] 07/21/2019 Encounter Status:[facility] CBC AND ELECTRONIC DIFFon Basophils (Bld) [#/Vol] 10*3/uL Normal 0.00-0.09 [facility] Comment on above: Performed By: #### L [id number] #### [facility] (DEFAULT) [address] [place] [address] Basophils/100 WBC (Bld) 0.3 % Normal [facility] Comment on above: Performed By: #### L [id number] #### [facility] (DEFAULT) [address] [place] [address] DIFF STATUS Electronic Differential Normal [facility] Comment on above: Performed By: #### L [id number] #### [facility] (DEFAULT) [address] [place] [address] Eosinophils (Bld) [#/Vol] 0.34 10*3/uL Normal 0.00-0.48 [facility] Comment on above: Performed By: #### L [id number] #### [facility] (DEFAULT) [address] [place] [address]14 Eosinophils/100 WBC (Bld) 3.8 % Normal [facility] Comment on above: Performed By: #### L [id number] #### [facility] (DEFAULT) [address] [address] Hematocrit (Bld) [Volume fraction] 40.1 % Normal 39.6-48.8 [facility] Comment on above: Performed By: #### L [id number] #### [facility] (DEFAULT) [address] [address] Hemoglobin (Bld) [Mass/Vol] 13.4 g/dL Normal 13.4-16.8 [facility] Comment on above: Performed By: #### L [id number] #### [facility] (DEFAULT) [address] [address] Immature Grans % 0.5 % Normal [facility] Comment on above: Performed By: #### L [id number] #### [facility] (DEFAULT) [address] [address] Immature Grans Absolute 0.04 K/uL Normal <=0.08 [facility] Comment on above: Performed By: #### L [id number] #### [facility] (DEFAULT) [address] [address] Lymphocytes (Bld) [#/Vol] 1.99 10*3/uL Normal 0.83-3.57 [facility] Comment on above: Performed By: #### L [id number] #### [facility] (DEFAULT) [address] [address] Lymphocytes/100 WBC (Bld) 22.5 % Normal [facility] Comment on above: Performed By: #### L [id number] #### [facility] (DEFAULT) [address] [address] MCV (RBC) [Entitic vol] 97.3 fL High 79.0-94.5 [facility] Comment on above: Performed By: #### L [id number] #### [facility] (DEFAULT) [address] [address] Mean Cell Hgb 32.5 pg Normal 26.1-33.3 [facility] Comment on above: Performed By: #### L [id number] #### [facility] (DEFAULT) [address] [address] Mean Cell Hgb Conc 33.4 g/dL Normal 31.9-36.5 [facility] Comment on above: Performed By: #### L [id number] #### [facility] (DEFAULT) [address] [place] [address] Monocytes (Bld) [#/Vol] 0.79 10*3/uL Normal 0.24-0.93 [facility] Comment on above: Performed By: #### L [id number] #### [facility] (DEFAULT) [address] [address] Monocytes/100 WBC (Bld) 8.9 % Normal [facility] Comment on above: Performed By: #### L [id number] #### [facility] (DEFAULT) [address] [address] Nucleated RBC 0.0 /100 WBC Normal <=0.2 [facility] Comment on above: Performed By: #### L [id number] #### [facility] (DEFAULT) [address] [place] [address] Platelet mean volume (Bld) [Entitic vol] 13.0 fL High 8.7-12.3 [facility] Comment on above: Performed By: #### L [id number] #### [facility] (DEFAULT) [address] [place] [address] Platelets (Bld) [#/Vol] 147 10*3/uL Normal 146-337 [facility] Comment on above: Performed By: #### L [id number] #### [facility] (DEFAULT) [address] [place] [address]272 RBC (Bld) [#/Vol] 4.12 10*6/uL Low 4.38-5.83 [facility] Comment on above: Performed By: #### L [id number] #### [facility] (DEFAULT) [address] [place] [address]388 RBC Distribution 13.4 % Normal 10.9-14.3 [facility] Comment on above: Performed By: #### L [id number] #### [facility] (DEFAULT) [address] [place] [address] Segs + Bands Auto 64.0 % Normal [facility] Comment on above: Performed By: #### L [id number] #### [facility] (DEFAULT) [address] [place] [address]65 Segs + Bands,Absolute Auto 5.67 K/uL Normal 1.57-6.19 [facility] Comment on above: Performed By: #### L [id number] #### [facility] (DEFAULT) [address] [place] [address] WBC (Bld) [#/Vol] 8.86 10*3/uL Normal 3.73-10.10 [facility] Comment on above: Performed By: #### L [id number] #### [facility] (DEFAULT) [address] [place] [address] CHEM 7 (LYTES,BUN,CREA,GLUC) on 08-03-2020 Anion gap [Moles/Vol] 16 mmol/L Normal 7-17 [facility] Comment on above: Performed By: #### C HM7 #### [facility] (DEFAULT) [address] [place] [address]12 Chloride [Moles/Vol] 105 mmol/L Normal 98-108 [facility] Comment on above: Performed By: #### C HM7 #### [facility] (DEFAULT) [address] [place] [address] 38361 CO2 [Moles/Vol] 26 mmol/L Normal 22-30 [facility] Comment on above: Performed By: #### C HM7 #### [facility] (DEFAULT) [address] [place] [address]369 Creatinine [Mass/Vol] 0.72 mg/dL Normal 0.70-1.30 [facility] Comment on above: Performed By: #### C HM7 #### [facility] (DEFAULT) [address] [address] EST GFR, >=60 Normal >=60 [facility] Comment on above: Performed By: #### C HM7 #### [facility] (DEFAULT) [address] [place] [address] EST GFR,Non >=60 Normal >=60 [facility] Comment on above: Performed By: #### C HM7 #### [facility] (DEFAULT) [address] [address] Glucose [Mass/Vol] 126 mg/dL High 70-99 [facility] Comment on above: Performed By: #### C HM7 #### [facility] (DEFAULT) [address] [address] Osmolality [Osmolality] 305 mosm/kg Normal 278-305 [facility] Comment on above: Performed By: #### C HM7 #### [facility] (DEFAULT) [address] [address] Potassium [Moles/Vol] 3.7 mmol/L Normal 3.5-5.0 [facility] Comment on above: Performed By: #### C HM7 #### [facility] (DEFAULT) [address] [address] Sodium [Moles/Vol] 143 mmol/L Normal 133-143 [facility] Comment on above: Performed By: #### C HM7 #### [facility] (DEFAULT) [address] [address] Urea nitrogen [Mass/Vol] 28 mg/dL High 7-22 [facility] Comment on above: Performed By: #### C HM7 #### [facility] (DEFAULT) [address] [place] [address] Urea nitrogen/Creatinine [Mass ratio] 39 mg/mg Normal [facility] Comment on above: Performed By: #### C HM7 #### [facility] (DEFAULT) [address] [place] [address] EP PROCEDURE - EPS/ABLATION/ DEVICEon 08-03-2020 EP [...] MONTHS - TO BE COMPLETED WITH 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 ALL CARDIAC AND EP FOLLOW UP WITH HIS [employer]PER[employer] [place] - NO F/U AT [facility] ? HOME TODAY ? GIVE LASIX THIS AM ? INCREASE LOSARTAN TO 50MG PO BID ? CONTINUE TOPROL AND ELIQUIS Antoine Perez EP Procedure - EPS/Ablation/Device Ordering Physician: EDMUND PARRY Order #: [id number] Study Date: 08/03/2020 Patient Information Name MRN Description Antoine Perez [id number] 74 y.o. male Physicians Panel Physicians Referring [...] MONTHS - TO BE COMPLETED WITH 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 ALL CARDIAC AND EP FOLLOW UP WITH HIS SUPERVIS[employer] [place] - NO F/U AT [facility] ? HOME [...] (08/03/2020 9: (more content not included)... Normal [facility] PT,INR,PTTon 08-03-2020 aPTT Coag (Bld) [Time] 44.4 s High 24.0-34.3 [facility] Comment on above: Performed By: #### P TPTT #### [facility] (DEFAULT) [address] [place] [address] INR Coag (PPP) [Relative time] 1.3 {INR} High 0.9-1.1 [facility] Comment on above: Performed By: #### P TPTT #### [facility] (DEFAULT) [address] [place] [address] PT Coag (PPP) [Time] 15.8 s High 11.9-14.2 [facility] Comment on above: Performed By: #### P TPTT #### [facility] (DEFAULT) [address] [place] [address] CNNURSEon 07-14-2020 CNNURSE Nurse Visit (COVAMD) PEREZANTOINE Taveras ([id number]) 1945 M Date Time Provider Department 07/14/20 2:25 PM COVID VACCINE MUKESH PHAM During your visit today, we recorded the following information about you: Referring Provider: RENZO DÍAZ [[id number]] Allergies As of Date: 07/14/2020 Noted Allergy Reaction SULFA (SULFONAMIDE ANTIBIOTICS) 02/06/2012 4 - Hives Comments: childhood Date Reviewed: 10/12/2019 Reviewed by: Jeferson Chirinos Ma - Fully Assessed Primary Visit Diagnosis:Need for COVID-19 vaccine [Z23] Order(s):SARS-COVID VACCINE 1ST DOSE APPT [34250GLT] Order #: [id number] [employer] [facility] [employer] COVID-19 VACCINE [[id number]] Order #: [id number] [employer] [facility] SARS-COV-2 VACCINE 2D DOSE APPT [[id number]] Order #: [id number] FUTURE Prescriptions as of 07/14/2020 Sig: MELOXICAM [...] Encounter Status:Closed by HOWARD HAQ on 07/15/20 [facility] No Panel Information Influenza Types A,B Direct FA ([facility]) [facility] Work Phone: Vital Signs Date Time Vital Sign Value Performing Clinician Faci lity 10-12-2024 06:49-0400 Body height 172.[address] Avni Walker MD Work Phone: [facility] 10-12-2024 06:49-0400 Body mass index (BMI) [Ratio] 35.1 kg/m2 Dr. Avni Walker MD Work Phone: [facility] 10-12-2024 06:49-0400 Body weight 104.[address] Avni Walker MD Work Phone: [facility] 10-12-2024 06:49-0400 Diastolic blood pressure 71 mm[Hg] Dr. Avni Walker MD Work Phone: [facility] 10-12-2024 06:49-0400 Heart rate 54 /min Dr. Avni Walker MD Work Phone: [facility] 10-12-2024 06:49-0400 Respiratory rate 18 /min Dr. Avni Walker MD Work Phone: [facility] 10-12-2024 06:49-0400 SaO2% (BldA) [Mass fraction] 93 % Dr. Avni Walker MD Work Phone: [facility] 10-12-2024 06:49-0400 Systolic blood pressure 122 mm[Hg] Dr. Avni Walker MD Work Phone: [facility] 07-14-2023 14:11-0500 Body height 172.[address] Avni Walker Work Phone: [facility] 07-14-2023 14:11-0500 Body mass index (BMI) [Ratio] 36.1 kg/m2 Dr. Avni Walker Work Phone: [facility] 07-14-2023 14:11-0500 Body weight 107.[address] Avni Walker Work Phone: [facility] 07-14-2023 14:11-0500 Diastolic blood pressure 52 mm[Hg] Dr. Avni Walker Work Phone: [facility] 07-14-2023 14:11-0500 Heart rate 48 /min Dr. Avni Walker Work Phone: [facility] 07-14-2023 14:11-0500 Respiratory rate 18 /min Dr. Avni Walker Work Phone: [facility] 07-14-2023 14:11-0500 Systolic blood pressure 100 mm[Hg] Dr. Avni Walker Work Phone: [facility] 03-19-2023 11:02-0400 Body temperature 97.6 [degF] Dr. Avni Walker Work Phone: [facility] 03-19-2023 11:02-0400 Diastolic blood pressure 57 mm[Hg] Dr. Avni Walker Work Phone: [facility] 03-19-2023 11:02-0400 Heart rate 45 /min Dr. Avni Walker Work Phone: [facility] 03-19-2023 11:02-0400 Respiratory rate 16 /min Dr. Avni Walker Work Phone: [facility] 03-19-2023 11:02-0400 SaO2% (BldA) [Mass fraction] 94 % Dr. Avni Walker Work Phone: [facility] 03-19-2023 11:02-0400 Systolic blood pressure 141 mm[Hg] Dr. Avni Walker Work Phone: 0(122)[phone] [place] [address] 03-19-2023 07:10-0400 Body height 172.[address] Avni Walker Work Phone: 3(787)170-597092 [place] [address] 03-19-2023 07:10-0400 Body mass index (BMI) [Ratio] 37.4 kg/m2 Dr. Avni Walker Work Phone: 7(349)422-729892 [place] [address] 03-19-2023 07:10-0400 Body weight 111.[address] Avni Walker Work Phone: 5(980)825-337574 [place] [address] 01-14-2023 14:27-0400 Body mass index (BMI) [Ratio] 36.8 kg/m2 Dr. Avni Walker Work Phone: 0(128)116-644114 [address] 01-14-2023 14:27-0400 Body weight 109.[address] Avni Walker Work Phone: 2(370)468-745174 [place] [address] 01-14-2023 14:27-0400 Diastolic blood pressure 84 mm[Hg] Dr. Avni Walker Work Phone: 3(416)285-638874 [place] [address] 01-14-2023 14:27-0400 Heart rate 62 /min Dr. Avni Walker Work Phone: 7(345)901-601274 [place] [address] 01-14-2023 14:27-0400 Respiratory rate 18 /min Dr. Avni Walker Work Phone: 7(703)421-824992 [place] [address] 01-14-2023 14:27-0400 SaO2% (BldA) [Mass fraction] 92 % Dr. Avni Walker Work Phone: 5(557)757-593492 [place] [address] 01-14-2023 14:27-0400 Systolic blood pressure 139 mm[Hg] Dr. Avni Walker Work Phone: 3(751)870-471092 [place] [address] 06-27-2022 14:29-0500 Body height 172.[address] Avni Walker Work Phone: 1(533)360-346274 [place] [address] 06-27-2022 14:21-0500 Body mass index (BMI) [Ratio] 35.4 kg/m2 Dr. Avni Walker Work Phone: [facility] 06-27-2022 14:21-0500 Body weight 105.[address] Avni Walker Work Phone: [facility] 06-27-2022 14:21-0500 Diastolic blood pressure 73 mm[Hg] Dr. Avni Walker Work Phone: [facility] 06-27-2022 14:21-0500 Heart rate 45 /min Dr. Avni Walker Work Phone: [facility] 06-27-2022 14:21-0500 Respiratory rate 18 /min Dr. Avni Walker Work Phone: [facility] 06-27-2022 14:21-0500 Systolic blood pressure 127 mm[Hg] Dr. Avni Walker Work Phone: [facility] 01-08-2022 16:10-0400 Body temperature 97.2 [degF] Dr. Avni Walker Work Phone: [facility] Work Phone: 01-08-2022 16:10-0400 Diastolic blood pressure 55 mm[Hg] Dr. Avni Walker Work Phone: [facility] Work Phone: 01-08-2022 16:10-0400 Heart rate 41 /min Dr. Avni Walker Work Phone: [facility] Work Phone: 01-08-2022 16:10-0400 Respiratory rate 16 /min Dr. Avni Walker Work Phone: [facility] Work Phone: 01-08-2022 16:10-0400 SaO2% (BldA) [Mass fraction] 96 % Dr. Avni Walker Work Phone: [facility] Work Phone: 01-08-2022 16:10-0400 Systolic blood pressure 145 mm[Hg] Dr. Avni Walker Work Phone: [facility] Work Phone: 01-08-2022 14:46-0400 Body height 172.[address] Avni Walker Work Phone: [facility] Work Phone: 01-08-2022 14:46-0400 Body mass index (BMI) [Ratio] 33.9 kg/m2 Dr. Avni Walker Work Phone: [facility] Work Phone: 01-08-2022 14:46-0400 Body weight 101.[address] Avni Walker Work Phone: [facility] Work Phone: 12-25-2021 14:39-0400 Body mass index (BMI) [Ratio] 34.2 kg/m2 Dr. Avni Walker Work Phone: [facility] Work Phone: 12-25-2021 14:39-0400 Body weight 102.[address] Avni Walker Work Phone: [facility] Work Phone: 12-25-2021 14:39-0400 Diastolic blood pressure 62 mm[Hg] Dr. Avni Walker Work Phone: [facility] Work Phone: 12-25-2021 14:39-0400 Heart rate 45 /min Dr. Avni Walker Work Phone: [facility] Work Phone: 12-25-2021 14:39-0400 Respiratory rate 16 /min Dr. Avni Walker Work Phone: [facility] Work Phone: 12-25-2021 14:39-0400 Systolic blood pressure 112 mm[Hg] Dr. Avni Walker Work Phone: [facility] Work Phone: 06-26-2021 14:40-0500 Body height 172.[address] Avni Walker Work Phone: [facility] Work Phone: 06-26-2021 14:40-0500 Body mass index (BMI) [Ratio] 34.9 kg/m2 Dr. Avni Walker Work Phone: [facility] Work Phone: 06-26-2021 14:40-0500 Body weight 104.[address] Avni Walker Work Phone: [facility] Work Phone: 06-26-2021 14:40-0500 Diastolic blood pressure 73 mm[Hg] Dr. Avni Walker Work Phone: [facility] Work Phone: 06-26-2021 14:40-0500 Heart rate 60 /min Dr. Avni Walker Work Phone: [facility] Work Phone: 06-26-2021 14:40-0500 Respiratory rate 18 /min Dr. Avni Walker Work Phone: [facility] Work Phone: 06-26-2021 14:40-0500 SaO2% (BldA) [Mass fraction] 98 % Dr. Avni Walker Work Phone: [facility] Work Phone: 06-26-2021 14:40-0500 Systolic blood pressure 123 mm[Hg] Dr. Avni Walker Work Phone: [facility] Work Phone: Encounters Encounter Date Encounter Type Care Provider Facility Start: 12-14-2024 Encounter for genera l adult medical examination without abnormal findings Avni Walker [facility] Start: 12-08-2024 End: 12-08-[address] Avni Walker MD Work Phone: -[facility] Start: 12-08-2024 End: 12-08-[address] Avni Walker MD -Laboratory Phy Office 3rd Fl[facility] Start: 12-08-2024 End: 12-08-2024 ambulatory Avni Manpreet Kofi Facility:[facility] Start: 10-12-2024 End: 10-12-2024 Patient encounter procedure Jules FRANKLIN -[facility] Work Phone: Start: 10-12-2024 End: 10-12-[address] Avni Walker MD Work Phone: [facility] Work Phone: Start: 09-30-2024 End: 09-30-[address] Avni Walker MD Work Phone: [facility] Work Phone: Start: 09-30-2024 End: 09-30-[address] Avni Walker MD -Laboratory Work Phone: Start: 09-30-2024 End: 09-30-2024 ambulatory Avni Manpreet Kofi Facility:[facility] Start: 09-13-2024 End: 09-13-[address] Avni Walker MD -Laboratory Work Phone: Start: 09-13-2024 End: 09-13-2024 ambulatory Avni Manpreet Kofi Facility:[facility] Start: 07-16-2024 Encounter for other preprocedural examination Linda Perez NP [facility] Start: 05-26-2024 ambulatory Fabiola L White Facility :[facility] Start: 05-26-2024 End: 05-31-2024 Evaluation and management of inpatient Fabiola L White Facility:[facility] Start: 05-23-2024 End: 05-23-2024 Emergency department patient visit Avni Chi Kofi Facility:[facility] Start: 05-20-2024 ambulatory Avni [facility] Kofi Facility:[facility] Start: 05-20-2024 End: 05-20-2024 ambulatory Avni Chi Kofi Facility:[facility] Start: 04-13-2024 End: 04-13-2024 ambulatory Avni Chi Kofi Facility:[facility] Start: 03-19-2024 End: 03-19-2024 ambulatory Avni Walker Facility:[facility] Start: 03-15-2024 End: 03-15-2024 ambulatory Avni Chi Kofi Facility:[facility] Start: 03-09-2024 End: 03-09-2024 ambulatory Avni Chi Kofi Facility:[facility] Start: 03-09-2024 End: 03-09-2024 ambulatory Sai Jeffrey Facility:[facility] Start: 09-17-2023 End: 09-17-[address] Avni Walker Work Phone: [facility] Work Phone: Start: 09-17-2023 End: 09-17-[address] Avni Walker Work Phone: [facility]-Laboratory, Phy Office 3rd Flr Start: 09-09-2023 End: 09-09-[address] Avni Walker Work Phone: [facility] Work Phone: Start: 09-09-2023 End: 09-09-[address] Avni Walker Work Phone: [facility]-Laboratory, Phy Office 3rd Flr Start: 07-23-2023 End: 07-23-[address] Avni Walker Work Phone: [facility] Work Phone: Start: 07-23-2023 End: 07-23-[address] Avni Walker Work Phone: [facility]-Pulmonary Services/Neurology Work Phone: Start: 07-14-2023 End: 07-14-[address] Avni Walker Work Phone: [facility] Work Phone: Start: 03-19-2023 End: 03-19-2023 Admission to same day surgery center Dr. Avni Walker Work Phone: [facility]-Surgical Day Care Start: 03-19-2023 End: 03-19-[address] Avni Walker Work Phone: [facility] Work Phone: Start: 01-14-2023 End: 01-14-[address] Avni Walker Work Phone: [facility] Work Phone: Start: 09-04-[address] [facility] Start: 08-30-2022 End: 08-30-[address] Avni Walker Work Phone: [facility] Work Phone: Start: 08-30-2022 End: 08-30-[address] [facility] Start: 07-10-2022 End: 07-10-[address] [facility] Start: 06-27-2022 End: 06-27-[address] Avni Walker Work Phone: [facility] Start: 03-06-2022 End: 03-06-[address] Avni Walker Work Phone: [facility] Work Phone: Start: 03-06-2022 End: 03-06-[address] Avni Walker [facility] Office 3rd Flr Start: 01-08-2022 End: 01-08-[address] Avni Walker Work Phone: [facility] Work Phone: Start: 01-08-2022 End: 01-08-[address] [facility] Start: 01-08-2022 End: 01-08-[address] Avni Walker [facility] Start: 01-07-2022 End: 01-07-[address] Avni Walker Work Phone: [facility] Work Phone: Start: 01-07-2022 End: 01-07-[address] Avni Walker [facility] Start: 12-25-2021 End: 12-25-[address] Avni Walker Work Phone: [facility] Start: 09-05-2021 End: 09-05-[address] Avni Walker Work Phone: [facility]-Laboratory, Phy Office 3rd Flr Start: 07-04-2021 End: 07-04-[address] [facility] Start: 06-26-2021 End: 06-26-[address] Avni Walker Work Phone: [facility]-Laboratory Start: 08-03-2020 End: 08-03-2020 ambulatory AVNIMANPREET WALKER Facility:[facility] Procedures Date Procedure Procedure Detail Performing Clinician Start: 09-30-2024 SARS-CoV-2, Influenz a & RSV (PCR) Dr. Anvi Walker MD Work Phone: Start: 09-13-2024 Vitamin D, 25-hydrox y measurement Dr. Avni Walker MD Work Phone: Comment on above: Vitamin D StatusDefi ciency: <20 ng/mL (50nmol/L)Insufficiency: 20-30 ng/mL (50-75 nmol/L)Sufficiency: 30-100 ng/mL (75-250 nmol/L)Toxicity: >100 ng/mL (>250 nmol/L) Start: 03-19-2023 Cysto Direct Visuali zation (Not Applicable) Dr. Avni Walker Work Phone: Influenza Types A,B Direct FA ([facility]) Dr. Avni Walker Work Phone: Respiratory syncytia l virus antigen assay Dr. Avni Walker Work Phone: Plan of Treatment Date Care Activity Detail Author Start: 12-08-2024 Borrelia burgdorferi blot test [facility] Start: 10-12-2024 Evaluation of diagno stic study results [facility] Start: 03-19-2023 Patient discharge [facility] Start: 03-19-2023 End: 03-19-2023 [facility] Start: 03-19-2023 Ambulation without limitation [facility] Start: 03-19-2023 Medication education [facility] Start: 03-19-2023 Taking patient vital signs [facility] Laboratory data interpretation [facility] Patient referral [facility] Work Phone: [facility] Immunizations Immunization Date Immunization Notes Care Provider Fa cility 02-17-2024 influenza, injectabl e, quadrivalent, preservative free Dr. Avni Walker MD Work Phone: [facility] 01-05-2020 influenza, injectabl e, quadrivalent, preservative free Dr. Avni Walker Work Phone: [facility] 01-05-2020 influenza, seasonal, injectable Dr. Avni Walker Work Phone: [facility] Payers Date Payer Category Payer Self-pay [id number] 2020 Unknown [id number] 2020 Medicare [id number] 1945 Unknown [id number] 2.16. [id number] Unknown [id number] Unknown [id number] 2.16.8 [id number] Unknown [id number] 2.16.8 40.1.720410.3.579.2.462 Unknown [id number] 2.16.8 40.1.465222.3.579.2.462 Unknown [id number] 2.16.8 40.1.531393.3.579.2.462 Unknown [id number] 2.16.8 40.1.095875.3.579.2.462 Unknown [id number] 2.16.8 40.1.234130.3.579.2.462 Unknown [id number] 2.16.8 40.1.986586.3.579.2.462 Unknown [id number] 2.16.8 40.1.302758.3.579.2.462 Unknown [id number] 2.16.8 40.1.033376.3.579.2.462 Unknown [id number] 2.16.8 40.1.475387.3.579.2.462 Unknown [id number] 2.16.8 40.1.731335.3.579.2.462 Unknown [id number] 2.16.8 40.1.840423.3.579.2.462 Unknown [id number] 2.16.8 40.1.140245.3.579.2.462 Unknown [id number] 2.16.8 40.1.741637.3.579.2.462 Unknown [id number] 2.16.8 40.1.579424.3.579.2.462 Unknown [id number] 2.16.8 40.1.524762.3.579.2.462 Unknown [id number] 2.16.8 40.1.642504.3.579.2.462 Unknown [id number] 2.16.8 40.1.150219.3.579.2.462 Unknown [id number] 2.16.8 40.1.024315.3.579.2.462 Unknown [id number] 2.16.8 40.1.470876.3.579.2.462 Social History Date Type Detail Facility Start: 06-26-2021 End: 07-14-2023 Tobacco smoking status NHIS Unknown if ever smoked [facility] Start: 11-16-2020 Occasional [facility] Start: 11-16-2020 None [facility] Start: 06-02-2020 Spouse/ Signif icant Other [facility] Start: 11-16-2020 Non-smoker [facility] Start: 1945 Sex Assigned At Male W [facility] Start: 05-26-2024 Tobacco smoking status NHIS Ex-smoker (finding) [facility] Goals Date Patient Goal Desired Activity /State Mental Status Date Assessment Result Facility 03-19-2023 Cognitive function Voice/Name [facility] Work Phone: 01-08-2022 Cognitive function Voice/Name [facility] Work Phone: Clinical Notes 07-10-2020 to 10-12-2024 Note Date & Type Note Facility 10-12-2024 Evaluation note Diagnosis Onset Date Resolution Fatigue acute October 12, 2024 1:06pm Benign essential hypertension chronic October 12, 2024 1:06pm Bradycardia chronic October 12 1:06pm Chronic systolic (congestive) heart failure chronic October 12, 2024 1:06pm Hyperlipidemia chronic October 12, 2024 1:06pm Left bundle branch block (LBBB) chronic October 12, 2024 1:06pm On amiodarone therapy chronic October 12, 2024 1:06pm Typical atrial flutter chronic Ma y 2024 1:06pm [facility] Work Phone: 1(239) 258-776201-13-2025 [facility] Medical Records Department [address] [place] [address] Discharge Summary 05/31/24 1305 MR#: [id number] Acct: [id number] Name: ANTOINE PEREZ Rep #: [id number] : 1945 78 From: Keith Kuhn MD PCP: Dr. Avni Walker MD Status:ADM IN Location: [facility] [id number] Providers Date of Admission: 05/26/24 Date of Discharge: 05/31/24 Primary Care Physician: Dr. Avni Walker MD Consultations 05/28/24 09:25 Consult: Onc/Wound/hotshot superintendent Routine Comment: Reason for Consult:: right neck [...] 650 mg PO Q12H (more content not included)...[facility]11-01-2023 Discharge summary Author Rudy Corea [facility] March 19, 2023 7:32am Note Date/Time March 19, 2023 7 :32am [facility] Medical Records Department [address] [place] [address] Instructions for Home/Discharge Instructions 03/19/23 0732 MR#: [id number] Acct: [id number] Name: ANTOINE PEREZ Rep #:[id number] : 1945 77 From: Rudy Corea MD [...] Up With: Rudy Corea MD When: Call [phone] for an appointment Test Results: Test results from this visit will be discussed in further detail at your follow- up appointment, if applicable. Discharge Plan Admission Primary [...] CC: Dr. Avni Walker MD ~ Signed [facility] Work Phone: 1(281) 828-125711-01-2023 History and physical note Author Rudy Corea [facility] March 19, 2023 7:31am Note Date/Time March 19, 2023 7 :31am [facility] Medical Records Department [address] [place] [id number] History & Physical Exam 03/19/23 0731 MR#: [id number] Acct: [id number] Name: ANTOINE PEREZ Rep #:[id number] : 1945 77 From: Rudy Corea MD PCP: Dr. Avni Walker MD Status:REG S [place] Location: [place] [address] History and Physical 77 yo male comes [...] ng/mL 4.87 mg/dl 5.30ng/ml 4.38 ng/ml Notes [facility] [address] [place], [place], [id number] This test was performed using the TPSA assay method for the [employer] chemistry system. Values obtained with different assay methods cannot be used interchangably. When changing PSA assays in the course of monitoring a patient, additional sequential testing should be carried out to confirm baseline values. [facility] [address] [place], [place], [id number] This test was performed using the TPSA assay method for the [employer] chemistry system. Values obtained with different assay methods cannot be used interchangably. When changing PSA assays in the course of monitoring a patient, additional sequential testing should be carried out to confirm baseline values. [facility] [address] [place], [id number] This test was performed using the TPSA assay method for the [employer] chemistry system. Values obtained with different assay methods cannot be used interchangably. When changing PSA assays in the course of monitoring a patient, additional sequential testing should be carried out to confirm baseline values. [facility] [address] [place], [address] This test was performed using the TPSA assay method for the [employer] chemistry system. Values obtained with different assay methods cannot be used interchangably. When changing PSA assays in the course of monitoring a patient, additional sequential testing should be carried out to confirm baseline values. [facility] [address] [place], [address] This test was performed using the TPSA assay method for the [employer] chemistry system. Values obtained with different assay methods cannot be used interchangably. When changing PSA assays in the course of monitoring a patient, additional sequential testing should be carried out to confirm baseline values. Test performed at: [facility] [address] [place] [address] This test was performed using the [...] confirm baseline values. PROCEDURES: Flexible Cystoscopy - 13156 Risks, benefits, and some of the potential [...] Corea MD; Dr. Avni Walker MD~ Signed [facility] Work Phone: 1(872) 823-566111-01-2023 Procedure [facility] 07-10-2020 NotePatient Outreach (COVAMN) ANTOINE PEREZ ([id number]) 1945 M Date Time Provider Department 07/10/20 RENZO DÍAZ During your visit today, we recorded the following information about you: Allergies As of Date: 07/10/2020 Noted Allergy Reaction SULFA (SULFONAMIDE ANTIBIOTICS) 02/06/2012 4 - Hives Comments: childhood Date Reviewed: 10/12/2019 Reviewed by: Brentwood Chirinos Ma - Fully Assessed Order(s):SARS-COVID VACCINE 1ST DOSE APPT [[id number]] Order #: [id number] FUTURE Prescriptions as of 07/10/2020 Sig: MELOXICAM [...] [Z96.651] 07/21/2019 Letter Text Encounter Status:Closed by DEDE PRODUSER on 07/13/20[facility] Evaluation note* Diagnosis Onset Date Resolution Status Benign essential hypertension chronic Hyperlipidemia chronic Left bundle branch block (LBBB) chronic Typical atrial flutter chron ic Non-ischemic cardiomyopathy resolved [facility] Work Phone: Evaluation note* Diagnosis Onset Date Resolution Status Benign essential hypertension chronic Hyperlipidemia chronic Left bundle branch block (LBBB) chronic Typical atrial flutter chron ic Non-ischemic cardiomyopathy resolved COVID-19 acute [facility] Work Phone: Evaluation note* Diagnosis Onset Date Resolution Status On amiodarone therapy acute Benign essential hypertension chronic Hyperlipidemia chronic Left bundle branch block (LBBB) chronic Typical atrial flutter chron ic Non-ischemic cardiomyopathy resolved [facility] Work Phone: Evaluation noteNo assessment information available [facility] Work Phone: Hospital Discharge instructions Additional Instructions Implant Used?: [facility] Work Phone: Reason for referral (narrative)No reason for referral information available[facility]: Summary Purpose Family History No [...] Will No June 02 7:47pm Power of E Commerce Strategist No June 02, 2020 7:47pm Advance Directive Response Recorded Date/ Time Name of Medical Power of E Commerce Strategist March 11, 2023 3:04pm Advance Directives Yes March 27, 2020 10:43am Living Will Yes March 11 3:04pm Power of E Commerce Strategist Yes March 11, 2023 3:04pm Advance Directive Response Recorded Date/ Time Advance Directives Yes March 27, 2020 10:43am Living Will Yes March 11 3:04pm Power of E Commerce Strategist Yes March 11, 2023 3:04pm Advance Directive [...] Non-ischemic cardiomyopathy Chief Complaint 6 M FU [facility] Reason for Visit On amiodarone therap y Benign essential hypertension Hyperlipidemia Left bundle branch block (LBBB) Typical atrial flutter Non-ischemic cardiomyopathy Chief Complaint Admit Date FU VISIT October 12, 2024 1:06p m Reason for Visit Admit Date Fatigue October 12, 2024 1:06p m Benign essential hypertension October 12, 2024 1:06pm Bradycardia October 12, 2024 1:06p m Chronic systolic (congestive) heart fail ure October 12, 2024 1:06pm Hyperlipidemia October 12, 2024 1:06p m Left bundle branch block (LBBB) September 1:06pm On amiodarone therapy October 12, 2024 1:0 6pm Typical atrial flutter October 12, 2024 1: 06pm Additional Source Comments (unrecognized sect ion and content) No Status Records FoundNo Status Records FoundNo Status Records FoundNo Status Records Found INFORMATION SOURCE (unrecogn ized section and content) DATE CREATED AUTHOR 08/26/2020 [facility] DATE CREATED AUTHOR AUTHOR'S ORGANIZ ATION 05/06/2021 [facility] DATE CREATED AUTHOR AUTHOR'S ORGANIZ ATION 06/16/2021 [facility] DATE CREATED AUTHOR AUTHOR'S ORGANIZ ATION 12/16/2024 [facility] Care Teams (unrecognized sec tion and content) Team Status: Active Member Role Status Dates Dr. Avni Walker MD Family Provider Active Dr. Avni Walker MD Primary Care Provider Active Team Status: Inactive Member Role Status Dates Dr. Avni Walker MD Primary Care Provider, Referring Provider Active Ottoniel Saini SETTER OFF, SETTER OFF-C Attending Provider Active Team Status: Inactive Member Role Status Dates Dr. Avni Walker MD Primary Care Provider Active Dr. Rudy Corea MD Attending Provider, Referr ing Provider Active Team Status: Inactive Member Role Status Dates Dr. Avni Walker MD Primary Care Provider Active Ottoniel Saini SETTER OFF, SETTER OFF-C Attending Provider, Referring Pro vider Active Team [...] October 12, 2024 End: October 12, 2024 Team Status: Active Member Role/Relationship Status Dates Dr. Avni Walker MD Family Provider Active Dr. Avni Walker MD Primary Care Provider Active Team Status: Inactive Member Role/Relationship Status Dates Dr. Avni Walker MD Primary Care Provider Active Start: September 13, 2024 End: September 13, 2024 Dr. Avni Walker MD Attending Provider Active Start: September 13, 2024 End: September 13, 2024 Dr. Avni Walker MD Referring Provider Active Start: September 13, 2024 End: September 13, 2024 Team Status: Inactive Member Role/Relationship Status Dates Dr. Avni Walker MD Primary Care Provider Active Start: September 30, 2024 End: September 30, 2024 Dr. Avni Walker MD Attending Provider Active Start: September 30, 2024 End: September 30, 2024 Team Status: Inactive Member Role/Relationship Status Dates Dr. Avni Walker MD Primary Care Provider Active Start: October 12, 2024 End: October 12, 2024 Dr. Avni Walker MD Referring Provider Active Start: October 12, 2024 End: October 12, 2024 NOEMI Hussein Attending Provider Active St art: October 12, 2024 End: October 12, 2024 Team Status: Inactive Member Role/Relationship Status Dates Dr. Avni Walker MD Primary Care Provider Active Start: December 08, 2024 End: December 08, 2024 Dr. Avni Walker MD Attending Provider Active Start: December 08, 2024 End: December 08, 2024 FOR RECORDS PERTAINING TO PATIENTS WHO [...] BE BASED ON THE PRIMARY CLINICAL RECORDS. [employer] provides no warranty or guarantee of the accuracy or completeness of information in this document.
--- OUTSIDE RECORDS SUMMARY | 2025-02-09 19:07 | XMS RPT_ITS | CCD ---
Author Organization [facility] Care Team Providers Care Motion Picture Set Grip Name Role Phone RANDY WALKER Primary Care Unavailable EDMUND PARRY Attending Unavailable EDMUND PARRY Admitting Unavailable Dr. Avni Walker Chi Primary Care Provider [phone] Kofi, Dr. Avni Case Referring Provider Dr. Sai Murphy Attending Provider Kofi, Dr. Avni Case Primary Care Provider [phone] Kofi, Dr. Avni Case Referring Provider Roof MAINTENANCE SERVICE TECHNICIAN, MAINTENANCE SERVICE TECHNICIAN-C Ottoniel Valenzuela Attending Provider Perez MAINTENANCE SERVICE TECHNICIAN, MAINTENANCE SERVICE TECHNICIAN-C Linda Attending Provider Kofi, Dr. Avni Case Primary Care Provider Kofi, Dr. Avni Case Referring Provider Roof MAINTENANCE SERVICE TECHNICIAN, MAINTENANCE SERVICE TECHNICIAN-C Ottoniel Valenzuela Attending Provider Kofi, Dr. Avni Case Primary Care Provider Kofi, Dr. Avni Case Referring Provider Roof MAINTENANCE SERVICE TECHNICIAN, MAINTENANCE SERVICE TECHNICIAN-C Ottoniel Valenzuela Attending Provider Kofi, Dr. Avni Case Primary Care Provider Kofi, Dr. Avni Case Referring Provider Roof MAINTENANCE SERVICE TECHNICIAN, MAINTENANCE SERVICE TECHNICIAN-C Ottoniel Valenzuela Attending Provider KofiDr. Avni wiley MD, Chi Primary Care Provider [phone] Kofi JULIEN, Dr. Avni Case Attending Provider Kofi JULIEN, Dr. 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 [facility] Comment on above: Result Comment: Per CDC [...] or more days of symptoms. Performed at: [address] [id number] [employer]: Liliana Jameson MD, Phone: [phone] Performed By: #### L 454.7938, [id number], L500.4100, L503.6620, L501.9520 #### [facility] [address] [place], [address] LYME IgG INTERP Negative Normal Negative [facility] Comment on above: Performed By: #### L 500.2500, L500.3400, L500.4100, L503.6620, L501.9520 #### [facility] [address] [place], [address] LYME IgM INTERP Negative Normal Negative [facility] Comment on above: Result Comment: Plea se Note: Lyme immunoblot alone is not recommended for the diagnosis of Lyme disease. Current guidelines recommend the use of a two-tiered approach to Lyme serology testing to improve the sensitivity and specificity of testing. [facility] offers test code 967783 Lyme Disease Serology with Reflex to aid in the diagnosis of Lyme Disease. Performed By: #### L 500.2500, L500.3400, L500.4100, L503.6620, L501.9520 #### [facility] [address] [place], [address] P18 Ab Absent Normal . [facility] Comment on above: Performed By: #### L 500.2500, L500.3400, L500.4100, L503.6620, L501.9520 #### [facility] [address] [place], [address] P23 Ab Absent Normal . [facility] Comment on above: Performed By: #### L 500.2500, L500.3400, L500.4100, L503.6620, L501.9520 #### [facility] [address] [place], [address] P28 Ab Absent Normal . [facility] Comment on above: Performed By: #### L 500.2500, L500.3400, L500.4100, L503.6620, L501.9520 #### [facility] [address] [place], [address] P30 Ab Absent Normal . [facility] Comment on above: Performed By: #### L 500.2500, L500.3400, L500.4100, L503.6620, L501.9520 #### [facility] [address] [place], [address] P39 Ab Absent Normal . [facility] Comment on above: Performed By: #### L 500.2500, L500.3400, L500.4100, L503.6620, L501.9520 #### [facility] [address] [place], [address] P39 Ab Present Normal . [facility] Comment on above: Performed By: #### L 500.2500, L500.3400, L500.4100, L503.6620, L501.9520 #### [facility] [address] [place], [address] P41 Ab Present Normal . [facility] Comment on above: Performed By: #### L 500.2500, L500.3400, L500.4100, L503.6620, L501.9520 #### [facility] [address] [place], [address] P41 Ab Absent Normal . [facility] Comment on above: Performed By: #### L 500.2500, L500.3400, L500.4100, L503.6620, L501.9520 #### [facility] [address] [place], [address] P45 Ab Absent Normal . [facility] Comment on above: Performed By: #### L 500.2500, L500.3400, L500.4100, L503.6620, L501.9520 #### [facility] [address] [place], [address] P58 Ab Present Normal . [facility] Comment on above: Performed By: #### L 500.2500, L500.3400, L500.4100, L503.6620, L501.9520 #### [facility] [address] [place], [address] P66 Ab Absent Normal . [facility] Comment on above: Performed By: #### L 500.2500, L500.3400, L500.4100, L503.6620, L501.9520 #### [facility] [address] [place], [address] P93 Ab Present Normal . [facility] Comment on above: Performed By: #### L 500.2500, L500.3400, L500.4100, L503.6620, L501.9520 #### [facility] [address] [place], [address] Cardiology Visit Reporton Cardiology Visit Report [facility] [address] [place] [address] OFFICE VISIT Date of Service: 10/12/24 MR#: [id number] Acct: [id number] Name: ANTOINE PEREZ Rep #: [id number] : 1945 Provider: NOEMI Hussein Age/Sex: 78/M Location: [facility] Status: Signed HPI HPI History of Present Illness Details: Antoine Perez is an 78-year-old male who presents to office today for follow-up for monitoring his cardiovascular health. Patient was admitted to the [facility] 01/05/2020 and was found to be in [...] where he was ruled out for an PR, underwent stress test which did not demonstrate any evidence of ischemia. Sleep study demonstrated mild obstructive sleep apnea. 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 Normal [facility] Influenza virus A and B and SARS-CoV-2 (COVID-19) and Respiratory syncytial virus RNAOrdered By: Avni Walker on 09-30-2024 SARS-CoV-2 (COVID-19) RNA PADDY+probe Ql (Unsp spec) [facility] M100.678on 09-30-2024 M100.678 Pending SARS-CoV-2 (COVID 19) Negative INFLUENZA A Negative INFLUENZA B Negative RSV PCR Negative Normal [facility] Comment on above: Performed By: #### L 500.2500, L500.3400, L500.4100, L503.6620, L501.9520 #### [facility] [address] [place], [address] Absolute lymphocyte countOrd ered By: Avni Walker on 09-13-2024 Lymphocytes Auto (Unsp spec) [#/Vol] 1.61 10*3/uL 0.83-4.51 [facility] Absolute neutrophil countOrd ered By: Avni Abreuok on 09-13-2024 Neutrophils (Bld) [#/Vol] 5.2 10*3/uL 2.0-7.7 [facility] Anion gap in Serum or Plasma Ordered By: Avni Walker on 09-13-2024 Anion gap [Moles/Vol] 13 mmol/L 5- [facility] Automated lymphocyte count a s percentage of total leukocytesOrdered By: Avni Kofi on 09-13-2024 Lymphocytes/100 WBC Auto (Unsp spec) 19.6 % - [facility] BUN/creatinine ratioOrdered By: Avni Kofi on 09-13-2024 Urea nitrogen/Creatinine [Mass ratio] 31.3 mg/mg High 10-20 [facility] Basophil percentageOrdered B y: Avni Kofi on 09-13-2024 Basophils/100 WBC (Bld) 0.2 % 0-1 [facility] Bilirubin, totalOrdered By: Avni Walker on 09-13-2024 Bilirubin [Mass/Vol] 0.38 mg/dL 0.00-1.30 [facility] CBC W/Diff, Automatedon 08-18 Absolute Lymph 1.61 X10 3/uL Normal 0.83-4.51 [facility] Comment on above: Performed By: #### L 500.2500, L500.3400, L500.4100, L503.6620, L501.9520 #### [facility] [address] [place], [address] Absolute Neut 5.2 X10 3/uL Normal 2.0-7.7 [facility] Comment on above: Performed By: #### L 500.2500, L500.3400, L500.4100, L503.6620, L501.9520 #### [facility] [address] [place], [address] Basophils/100 WBC (Bld) 0.2 % Normal 0-1 [facility] Comment on above: Performed By: #### L 500.2500, L500.3400, L500.4100, L503.6620, L501.9520 #### [facility] [address] [place], [address] Eosinophils/100 WBC (Bld) 6.5 % High 0-5 [facility] Comment on above: Performed By: #### L 500.2500, L500.3400, L500.4100, L503.6620, L501.9520 #### [facility] [address] [place], [address] Erythrocyte distribution width (RBC) [Ratio] 13.7 % Normal 11.6-14.6 [facility] Comment on above: Performed By: #### L 500.2500, L500.3400, L500.4100, L503.6620, L501.9520 #### [facility] [address] [place], [address] Hematocrit (Bld) [Volume fraction] 39.3 % Low 40-54 [facility] Comment on above: Performed By: #### L 500.2500, L500.3400, L500.4100, L503.6620, L501.9520 #### [facility] [address] [place], [address] Hemoglobin (Bld) [Mass/Vol] 13.0 g/dL Normal 13.0-16.5 [facility] Comment on above: Performed By: #### L 500.2500, L500.3400, L500.4100, L503.6620, L501.9520 #### [facility] [address] [place], [address] IG% 0.900 Normal 0.0-0.9 [facility] Comment on above: Result Comment: IG% - Immature Granulocytes (promyelocytes, myelocytes and metamyelocytes) > 1% indicates that a LEFT SHIFT is Present. Performed By: #### L 500.2500, L500.3400, L500.4100, L503.6620, L501.9520 #### [facility] [address] [place], [address] Lymphocytes/100 WBC (Bld) 19.6 % Normal 19-41 [facility] Comment on above: Performed By: #### L 500.2500, L500.3400, L500.4100, L503.6620, L501.9520 #### [facility] [address] [place], [address] MCH (RBC) [Entitic mass] 33.3 pg High 27.0-32.0 [facility] Comment on above: Performed By: #### L 500.2500, L500.3400, L500.4100, L503.6620, L501.9520 #### [facility] [address] [place], [address] MCHC (RBC) [Mass/Vol] 33.1 g/dL Normal 32-36 [facility] Comment on above: Performed By: #### L 500.2500, L500.3400, L500.4100, L503.6620, L501.9520 #### [facility] [address] [place], [address] MCV (RBC) [Entitic vol] 100.8 fL High 80-94 [facility] Comment on above: Performed By: #### L 500.2500, L500.3400, L500.4100, L503.6620, L501.9520 #### [facility] [address] [place], [address] Monocytes/100 WBC (Bld) 9.0 % Normal 0-10 [facility] Comment on above: Performed By: #### L 500.2500, L500.3400, L500.4100, L503.6620, L501.9520 #### [facility] [address] [place], [address] Neutrophils/100 WBC (Bld) 63.8 % Normal 47-70 [facility] Comment on above: Performed By: #### L 500.2500, L500.3400, L500.4100, L503.6620, L501.9520 #### [facility] [address] [place], [address] Nucleated RBC (Bld) [#/Vol] 0 10*3/uL Normal 0-5 [facility] Comment on above: Performed By: #### L 500.2500, L500.3400, L500.4100, L503.6620, L501.9520 #### [facility] [address] [place], [address] Platelet mean volume (Bld) [Entitic vol] 13.0 fL High 6.2-12.0 [facility] Comment on above: Performed By: #### L 500.2500, L500.3400, L500.4100, L503.6620, L501.9520 #### [facility] [address] [place], [address] Platelets (Bld) [#/Vol] 173 10*3/uL Normal 150-450 [facility] Comment on above: Performed By: #### L 500.2500, L500.3400, L500.4100, L503.6620, L501.9520 #### [facility] [address] [place], [address] RBC (Bld) [#/Vol] 3.90 10*6/uL Low 4.6-6.2 [facility] Comment on above: Performed By: #### L 500.2500, L500.3400, L500.4100, L503.6620, L501.9520 #### [facility] [address] [place], [address] RDW SD 50.8 fl High 35.1-43.9 [facility] Comment on above: Performed By: #### L 500.2500, L500.3400, L500.4100, L503.6620, L501.9520 #### [facility] [address] [place], [address] WBC (Bld) [#/Vol] 8.2 10*3/uL Normal 4.4-11.0 [facility] Comment on above: Performed By: #### L 500.2500, L500.3400, L500.4100, L503.6620, L501.9520 #### [facility] [address] [place], [address] Carbon dioxide, total [Moles /volume] in Central venous bloodOrdered By: Avni Walker on 09-13-2024 CO2 [Moles/Vol] 24.4 mmol/L 21.0-32.0 [facility] Chloride assayOrdered By: Curtis Walker on 09-13-2024 Chloride [Moles/Vol] 103 mmol/L 98-108 [facility] Comprehensive Metabolic Prof ilon 09-13-2024 Albumin [Mass/Vol] 4.1 g/dL Normal 3.4-4.8 [facility] Comment on above: Performed By: #### L 500.2500, L500.3400, L500.4100, L503.6620, L501.9520 #### [facility] [address] [place], [address] Albumin/Globulin [Mass ratio] 1.3 {ratio} Normal 0.9-2.4 [facility] Comment on above: Performed By: #### L 500.2500, L500.3400, L500.4100, L503.6620, L501.9520 #### [facility] [address] [place], [address] ALK PHOS 83 U/L Normal 40-129 [facility] Comment on above: Performed By: #### L 500.2500, L500.3400, L500.4100, L503.6620, L501.9520 #### [facility] [address] [place], [address] ALT [Catalytic activity/Vol] 19 U/L Normal <=46 [facility] Comment on above: Performed By: #### L 500.2500, L500.3400, L500.4100, L503.6620, L501.9520 #### [facility] [address] [place], [address] AST [Catalytic activity/Vol] 20 U/L Normal <=37 [facility] Comment on above: Performed By: #### L 500.2500, L500.3400, L500.4100, L503.6620, L501.9520 #### [facility] [address] [place], [address] Bilirubin [Mass/Vol] 0.38 mg/dL Normal 0.00-1.30 [facility] Comment on above: Performed By: #### L 500.2500, L500.3400, L500.4100, L503.6620, L501.9520 #### [facility] [address] [place], [address] BUN/CRE 31.3 RATIO High 10-20 [facility] Comment on above: Performed By: #### L 500.2500, L500.3400, L500.4100, L503.6620, L501.9520 #### [facility] [address] [place], [address] Calcium [Mass/Vol] 9.4 mg/dL Normal 7.6-11.0 [facility] Comment on above: Performed By: #### L 500.2500, L500.3400, L500.4100, L503.6620, L501.9520 #### [facility] [address] [place], [address] Chloride [Moles/Vol] 103 mmol/L Normal 98-108 [facility] Comment on above: Performed By: #### L 500.2500, L500.3400, L500.4100, L503.6620, L501.9520 #### [facility] [address] [place], [address] CO2 [Moles/Vol] 24.4 mmol/L Normal 21.0-32.0 [facility] Comment on above: Performed By: #### L 500.2500, L500.3400, L500.4100, L503.6620, L501.9520 #### [facility] [address] [place], [address] Creatinine [Mass/Vol] 0.76 mg/dL Normal 0.70-1.20 [facility] Comment on above: Performed By: #### L 500.2500, L500.3400, L500.4100, L503.6620, L501.9520 #### [facility] [address] [place], [address] GAP 13 Normal 5-15 [facility] Comment on above: Performed By: #### L 500.2500, L500.3400, L500.4100, L503.6620, L501.9520 #### [facility] [address] [place], [address] GFR/1.73 sq M.predicted among non-blacks MDRD (S/P/Bld) [Vol rate/Area] 91 mL/min/{1.73_m2} Normal >60 [facility] Comment on above: Result Comment: mL/m in/1.73m2 CKD-EPI Creatinine Equation (2020) Performed By: #### L 500.2500, L500.3400, L500.4100, L503.6620, L501.9520 #### [facility] [address] [place], [address] Globulin (S) [Mass/Vol] 3.2 g/dL Normal 2.2-4.2 [facility] Comment on above: Performed By: #### L 500.2500, L500.3400, L500.4100, L503.6620, L501.9520 #### [facility] [address] [place], [address] Glucose [Mass/Vol] 115 mg/dL High 70-99 [facility] Comment on above: Performed By: #### L 500.2500, L500.3400, L500.4100, L503.6620, L501.9520 #### [facility] [address] [place], [address] Potassium [Moles/Vol] 3.9 mmol/L Normal 3.3-5.1 [facility] Comment on above: Performed By: #### L 500.2500, L500.3400, L500.4100, L503.6620, L501.9520 #### [facility] [address] [place], [address] Sodium [Moles/Vol] 140 mmol/L Normal 133-145 [facility] Comment on above: Performed By: #### L 500.2500, L500.3400, L500.4100, L503.6620, L501.9520 #### [facility] [address] [place], [address] T PROT 7.3 g/dL Normal 5.9-8.4 [facility] Comment on above: Performed By: #### L 500.2500, L500.3400, L500.4100, L503.6620, L501.9520 #### [facility] [address] [place], [place], [address] Urea nitrogen [Mass/Vol] 24 mg/dL High 4-19 [facility] Comment on above: Performed By: #### L 500.2500, L500.3400, L500.4100, L503.6620, L501.9520 #### [facility] [address] [place], [address] Eosinophil percentageOrdered By: Avni Walker on 09-13-2024 Eosinophils/100 WBC (Bld) 6.5 % High 0-5 [facility] Erythrocyte distribution wid th ratioOrdered By: Avni Walker on 09-13-2024 Erythrocyte distribution width (RBC) [Ratio] 13.7 % 11.6-14.6 [facility] Erythrocyte distribution wid th standard deviationOrdered By: Avni Walker 09-13-2024 Erythrocyte distribution width (RBC) [Ratio] 50.8 fl High 35.1-43.9 [facility] Glomerular filtration rate ( GFR) estimation/1.73 sq m using serum, plasma, or whole bOrdered By: Avni Walker on 09-13-2024 GFR/1.73 sq M.predicted among non-blacks MDRD (S/P/Bld) [Vol rate/Area] 91 mL/min/{1.73_m2} >60 [facility] Comment on above: mL/min/1.73m2 CKD-EP I Creatinine Equation (2020) Hematocrit Auto (Bld) [Volum e fraction]Ordered By: Avni Walker on 09-13-2024 Hematocrit (Bld) [Volume fraction] 39.3 % Low 40-54 [facility] Hemoglobin measurementOrdere d By: Avni Walker 09-13-2024 Hemoglobin (Bld) [Mass/Vol] 13.0 g/dL 13.0-16.5 [facility] Immature granulocytes/100 WB C Auto (Bld)Ordered By: Avni Walker 09-13-2024 Immature granulocytes/100 WBC (Bld) 0.900 % 0.0-0.9 [facility] Comment on above: IG% - Immature Granu locytes (promyelocytes, myelocytes and metamyelocytes) > 1% indicates that a LEFT SHIFT is Present. Laboratory - Chemistry and C hemistry - challengeOrdered By: Avni Walker on 09-13-2024 AST [Catalytic activity/Vol] 20 U/L <38 [facility] MCV (mean corpuscular volume ) determinationOrdered By: Avni Walker 09-13-2024 MCV (RBC) [Entitic vol] 100.8 fL High 80-94 [facility] Mean corpuscular hemoglobin (MCH) determinationOrdered By: Avni Walker 09-13-2024 MCH (RBC) [Entitic mass] 33.3 pg High 27.0-32.0 [facility] Mean corpuscular hemoglobin concentration (MCHC) determinationOrdered By: Avni Walker 09-13-2024 MCHC (RBC) [Mass/Vol] 33.1 g/dL 32-36 [facility] Mean platelet volume determi nationOrdered By: Avni Walker 09-13-2024 Platelet mean volume (Bld) [Entitic vol] 13.0 fL High 6.2-12.0 [facility] Monocyte percentageOrdered B y: Avni Walker on 09-13-2024 Monocytes/100 WBC (Bld) 9.0 % 0-10 [facility] Neutrophil percentageOrdered By: Avni Walker 09-13-2024 Neutrophils/100 WBC (Bld) 63.8 % 47-70 [facility] Nucleated red blood cell per centageOrdered By: Avni Walker 09-13-2024 Nucleated RBC/100 WBC (Bld) [Ratio] 0 % 0-5 [facility] Platelet countOrdered By: Curtis Walker on 09-13-2024 Platelets (Bld) [#/Vol] 173 10*3/uL 150-450 [facility] Potassium measurement (mass/ volume)Ordered By: Avni Walker on 09-13-2024 Potassium (Unsp spec) [Mass/Vol] 3.9 mmol/L 3.3-5.1 [facility] RBC Auto (Bld) [#/Vol]Ordere d By: Avni Walker on 09-13-2024 RBC (Bld) [#/Vol] 3.90 10*6/uL Low 4.6-6.2 [facility] Serum creatinine measurement (mass/volume)Ordered By: Avni Walker on 09-13-2024 Creatinine [Mass/Vol] 0.76 mg/dL 0.70-1.20 [facility] Serum globulin measurementOr dered By: Avni Walker 09-13-2024 Globulin (S) [Mass/Vol] 3.2 g/dL 2.2-4.2 [facility] Serum glucose measurement (m ass/volume)Ordered By: Avni Walker 09-13-2024 Glucose [Mass/Vol] 115 mg/dL High 70-99 [facility] Serum or plasma alanine sparks otransferase (ALT) measurementOrdered By: Avni Walker 09-13-2024 ALT [Catalytic activity/Vol] 19 U/L <47 [facility] Serum or plasma albumin brittnee urement (mass/volume)Ordered By: Avni Walker 09-13-2024 Albumin [Mass/Vol] 4.1 g/dL 3.4-4.8 [facility] Serum or plasma albumin/glob ulin mass ratioOrdered By: Avni Walker 09-13-2024 Albumin/Globulin [Mass ratio] 1.3 {ratio} 0.9-2.4 [facility] Serum or plasma alkaline mallory sphatase measurementOrdered By: Avni Walker 09-13-2024 ALP [Catalytic activity/Vol] 83 U/L 40-129 [facility] Serum or plasma calcium brittnee urement (mass/volume)Ordered By: Avni Walker 09-13-2024 Calcium [Mass/Vol] 9.4 mg/dL 7.6-11.0 [facility] Serum or plasma urea nitroge n measurement (mass/volume)Ordered By: Avni Walker 09-13-2024 Urea nitrogen [Mass/Vol] 24 mg/dL High 4-19 [facility] Sodium levelOrdered By: Avni Walker 09-13-2024 Sodium [Moles/Vol] 140 mmol/L 133-145 [facility] TSH DL <= 0.005 mIU/L QnOrde red By: Avni Walker 09-13-2024 TSH Qn 1.080 uIU/mL 0.300-4.200 [facility] Thyroid Stim Hormone (TSH)on 09-13-2024 TSH 1.080 uIU/mL Normal 0.300-4.200 [facility] Comment on above: Performed By: #### L 500.2500, L500.3400, L500.4100, L503.6620, L501.9520 #### [facility] [address] [place], [address] Total proteinOrdered By: Avni Walker on 09-13-2024 Protein [Mass/Vol] 7.3 g/dL 5.9-8.4 [facility] Vitamin D,25 Hydroxyon 09-13 Vitamin D 25-OH 52.8 ng/mL Normal 30-100 [facility] Comment on above: Result Comment: Lizz min D Status Deficiency: <20 ng/mL (50nmol/L) Insufficiency: 20-30 ng/mL (50-75 nmol/L) Sufficiency: 30-100 ng/mL (75-250 nmol/L) Toxicity: >100 ng/mL (>250 nmol/L) Performed By: #### L 500.2500, L500.3400, L500.4100, L503.6620, L501.9520 #### [facility] [address] [place], [address] White blood cell (WBC) count Ordered By: Avni Walker on 09-13-2024 WBC (Bld) [#/Vol] 8.2 10*3/uL 4.4-11.0 [facility] Basic Metabolic Profile (BMP )on 05-31-2024 BUN/CRE 26.6 RATIO High 10-20 [facility] Comment on above: Performed By: #### L 500.2500, L500.3400, L500.4100, L503.6620, L501.9520 #### [facility] [address] [place], [address] CA,Total 9.1 mg/dL Normal 8.5-10.1 [facility] Comment on above: Performed By: #### L 500.2500, L500.3400, L500.4100, L503.6620, L501.9520 #### [facility] [address] [place], [address] Chloride [Moles/Vol] 109 mmol/L High 98-107 [facility] Comment on above: Performed By: #### L 500.2500, L500.3400, L500.4100, L503.6620, L501.9520 #### [facility] [address] [place], [address] CO2 [Moles/Vol] 27.0 mmol/L Normal 21.0-32.0 [facility] Comment on above: Performed By: #### L 500.2500, L500.3400, L500.4100, L503.6620, L501.9520 #### [facility] [address] [place], [address] Creatinine [Mass/Vol] 0.83 mg/dL Normal 0.70-1.30 [facility] Comment on above: Result Comment: The validity of the calculated GFR GFRAA in patients over 70 years has not been determined. Clinical correlation is essential. Performed By: #### L 500.2500, L500.3400, L500.4100, L503.6620, L501.9520 #### [facility] [address] [place], [address] ECRCL 87.46 ml/min Normal [facility] Comment on above: Performed By: #### L 500.2500, L500.3400, L500.4100, L503.6620, L501.9520 #### [facility] [address] [place], [address] EST GFR - AA 115 mL/min Normal >60 [facility] Comment on above: Result Comment: Afri can Italian GFR Calc Performed By: #### L 500.2500, L500.3400, L500.4100, L503.6620, L501.9520 #### [facility] [address] [place], [address] GAP 4 Low 5-15 [facility] Comment on above: Performed By: #### L 500.2500, L500.3400, L500.4100, L503.6620, L501.9520 #### [facility] [address] [place], [address] GFR/1.73 sq M.predicted among non-blacks MDRD (S/P/Bld) [Vol rate/Area] 95 mL/min/{1.73_m2} Normal >60 [facility] Comment on above: Result Comment: Non- GFR Calc Performed By: #### L 500.2500, L500.3400, L500.4100, L503.6620, L501.9520 #### [facility] [address] [place], [address] Glucose [Mass/Vol] 107 mg/dL High 74-106 [facility] Comment on above: Result Comment: Fast ing Glucose result from 100 to 125 mg/dL suggests IMPAIRED HOMEOSTASIS per A.D.A. criteria. Performed By: #### L 500.2500, L500.3400, L500.4100, L503.6620, L501.9520 #### [facility] [address] [place], [address] Potassium [Moles/Vol] 3.7 mmol/L Normal 3.5-5.1 [facility] Comment on above: Performed By: #### L 500.2500, L500.3400, L500.4100, L503.6620, L501.9520 #### [facility] [address] [place], [address] Sodium [Moles/Vol] 140 mmol/L Normal 136-145 [facility] Comment on above: Performed By: #### L 500.2500, L500.3400, L500.4100, L503.6620, L501.9520 #### [facility] [address], [address] Urea nitrogen [Mass/Vol] 22 mg/dL High 7-18 [facility] Comment on above: Performed By: #### L 500.2500, L500.3400, L500.4100, L503.6620, L501.9520 #### [facility] [address], [address] CBC W/Diff, Automatedon 05-19-2024 Absolute Lymph 1.65 X10 3/uL Normal 0.83-4.51 [facility] Comment on above: Performed By: #### L 500.2500, L500.3400, L500.4100, L503.6620, L501.9520 #### [facility] [address] [place], [address] Absolute Neut 4.8 X10 3/uL Normal 2.0-7.7 [facility] Comment on above: Performed By: #### L 500.2500, L500.3400, L500.4100, L503.6620, L501.9520 #### [facility] [address], [address] Basophils/100 WBC (Bld) 0.4 % Normal 0-1 [facility] Comment on above: Performed By: #### L 500.2500, L500.3400, L500.4100, L503.6620, L501.9520 #### [facility] [address] [place], [address] Eosinophils/100 WBC (Bld) 4.0 % Normal 0-5 [facility] Comment on above: Performed By: #### L 500.2500, L500.3400, L500.4100, L503.6620, L501.9520 #### [facility] [address] [place], [address] Erythrocyte distribution width (RBC) [Ratio] 13.2 % Normal 11.6-14.6 [facility] Comment on above: Performed By: #### L 500.2500, L500.3400, L500.4100, L503.6620, L501.9520 #### [facility] [address] [place], [address] Hematocrit (Bld) [Volume fraction] 34.3 % Low 40-54 [facility] Comment on above: Performed By: #### L 500.2500, L500.3400, L500.4100, L503.6620, L501.9520 #### [facility] [address] [place], [address] Hemoglobin (Bld) [Mass/Vol] 11.5 g/dL Low 13.0-16.5 [facility] Comment on above: Performed By: #### L 500.2500, L500.3400, L500.4100, L503.6620, L501.9520 #### [facility] [address] [place], [address] IG% 1.100 High 0.0-0.9 [facility] Comment on above: Result Comment: IG% - Immature Granulocytes (promyelocytes, myelocytes and metamyelocytes) > 1% indicates that a LEFT SHIFT is Present. Performed By: #### L 500.2500, L500.3400, L500.4100, L503.6620, L501.9520 #### [facility] [address] [place], [address] Lymphocytes/100 WBC (Bld) 21.8 % Normal 19-41 [facility] Comment on above: Performed By: #### L 500.2500, L500.3400, L500.4100, L503.6620, L501.9520 #### [facility] [address] [place], [address] MCH (RBC) [Entitic mass] 33.9 pg High 27.0-32.0 [facility] Comment on above: Performed By: #### L 500.2500, L500.3400, L500.4100, L503.6620, L501.9520 #### [facility] [address] [place], [address] MCHC (RBC) [Mass/Vol] 33.5 g/dL Normal 32-36 [facility] Comment on above: Performed By: #### L 500.2500, L500.3400, L500.4100, L503.6620, L501.9520 #### [facility] [address] [place], [address] MCV (RBC) [Entitic vol] 101.2 fL High 80-94 [facility] Comment on above: Performed By: #### L 500.2500, L500.3400, L500.4100, L503.6620, L501.9520 #### [facility] [address] [place], [address] Monocytes/100 WBC (Bld) 10.2 % High 0-10 [facility] Comment on above: Performed By: #### L 500.2500, L500.3400, L500.4100, L503.6620, L501.9520 #### [facility] [address] [place], [address] Neutrophils/100 WBC (Bld) 62.5 % Normal 47-70 [facility] Comment on above: Performed By: #### L 500.2500, L500.3400, L500.4100, L503.6620, L501.9520 #### [facility] [address] [place], [address] Nucleated RBC (Bld) [#/Vol] 0 10*3/uL Normal 0-5 [facility] Comment on above: Performed By: #### L 500.2500, L500.3400, L500.4100, L503.6620, L501.9520 #### [facility] [address] [place], [address] Platelet mean volume (Bld) [Entitic vol] 11.5 fL Normal 6.2-12.0 [facility] Comment on above: Performed By: #### L 500.2500, L500.3400, L500.4100, L503.6620, L501.9520 #### [facility] [address] [place], [address] Platelets (Bld) [#/Vol] 173 10*3/uL Normal 150-450 [facility] Comment on above: Performed By: #### L 500.2500, L500.3400, L500.4100, L503.6620, L501.9520 #### [facility] [address] [place], [address] RBC (Bld) [#/Vol] 3.39 10*6/uL Low 4.6-6.2 [facility] Comment on above: Performed By: #### L 500.2500, L500.3400, L500.4100, L503.6620, L501.9520 #### [facility] [address] [place], [address] RDW SD 49.2 fl High 35.1-43.9 [facility] Comment on above: Performed By: #### L 500.2500, L500.3400, L500.4100, L503.6620, L501.9520 #### [facility] [address] [place], [address] WBC (Bld) [#/Vol] 7.6 10*3/uL Normal 4.4-11.0 [facility] Comment on above: Performed By: #### L 500.2500, L500.3400, L500.4100, L503.6620, L501.9520 #### [facility] [address] [place], [address] Discharge Instructionon 05-19 Discharge Instruction [facility] Medical Records Department [address] [place] [address] Instructions for Home/Discharge Instructions 05/31/24 1055 MR#: [id number] Acct: [id number] Name: ANTOINE PEREZ Rep #: [id number] : 1945 78 From: Keith Kuhn MD [...] Carter Instructions Additional Instructions / Restrictions: Advised [id number] probiotic, lactobacillus 1 tablet twice daily for [...] can be placed): Home, Self Care 05/31/24 6104 Keith Kuhn MD CC: Dr. Ángel Quiroz MD; Dr. Fabiola Lowery MD; Dr. Jluis Carter MD; Dr. Avni Walker MD Signed Normal [facility] Basic Metabolic Profile (BMP )on 05-30-2024 BUN/CRE 26.6 RATIO High 10-20 [facility] Comment on above: Performed By: #### L 501.1400, L501.9520, L500.4050, L506.1000, L100.0100 #### [facility] [address] [place], [address] CA,Total 9.0 mg/dL Normal 8.5-10.1 [facility] Comment on above: Performed By: #### L 501.1400, L501.9520, L500.4050, L506.1000, L100.0100 #### [facility] [address] [place], [address] Chloride [Moles/Vol] 110 mmol/L High 98-107 [facility] Comment on above: Performed By: #### L 501.1400, L501.9520, L500.4050, L506.1000, L100.0100 #### [facility] [address] [place], [address] CO2 [Moles/Vol] 27.0 mmol/L Normal 21.0-32.0 [facility] Comment on above: Performed By: #### L 501.1400, L501.9520, L500.4050, L506.1000, L100.0100 #### [facility] [address] [place], [address] Creatinine [Mass/Vol] 0.79 mg/dL Normal 0.70-1.30 [facility] Comment on above: Result Comment: The validity of the calculated GFR GFRAA in patients over 70 years has not been determined. Clinical correlation is essential. Performed By: #### L 501.1400, L501.9520, L500.4050, L506.1000, L100.0100 #### [facility] [address] [place], [address] ECRCL 90.74 ml/min Normal [facility] Comment on above: Performed By: #### L 501.1400, L501.9520, L500.4050, L506.1000, L100.0100 #### [facility] [address] [place], [address] EST GFR - AA 122 mL/min Normal >60 [facility] Comment on above: Result Comment: Afri can Italian GFR Calc Performed By: #### L 501.1400, L501.9520, L500.4050, L506.1000, L100.0100 #### [facility] [address] [place], [address] GAP 4 Low 5-15 [facility] Comment on above: Performed By: #### L 501.1400, L501.9520, L500.4050, L506.1000, L100.0100 #### [facility] [address] [place], [address] GFR/1.73 sq M.predicted among non-blacks MDRD (S/P/Bld) [Vol rate/Area] 100 mL/min/{1.73_m2} Normal >60 [facility] Comment on above: Result Comment: Non- GFR Calc Performed By: #### L 501.1400, L501.9520, L500.4050, L506.1000, L100.0100 #### [facility] [address] [place], [address] Glucose [Mass/Vol] 102 mg/dL Normal 74-106 [facility] Comment on above: Result Comment: Fast ing Glucose result from 100 to 125 mg/dL suggests IMPAIRED HOMEOSTASIS per A.D.A. criteria. Performed By: #### L 501.1400, L501.9520, L500.4050, L506.1000, L100.0100 #### [facility] [address] [place], [address] Potassium [Moles/Vol] 3.7 mmol/L Normal 3.5-5.1 [facility] Comment on above: Performed By: #### L 501.1400, L501.9520, L500.4050, L506.1000, L100.0100 #### [facility] [address] [place], [address] Sodium [Moles/Vol] 140 mmol/L Normal 136-145 [facility] Comment on above: Performed By: #### L 501.1400, L501.9520, L500.4050, L506.1000, L100.0100 #### [facility] [address] [place], [address] Urea nitrogen [Mass/Vol] 21 mg/dL High 7-18 [facility] Comment on above: Performed By: #### L 501.1400, L501.9520, L500.4050, L506.1000, L100.0100 #### [facility] [address] [place], [address] CBC W/Diff, Automatedon -05 20-2024 Absolute Lymph 1.58 X10 3/uL Normal 0.83-4.51 [facility] Comment on above: Performed By: #### L 501.1400, L501.9520, L500.4050, L506.1000, L100.0100 #### [facility] [address] [place], [address] Absolute Neut 3.9 X10 3/uL Normal 2.0-7.7 [facility] Comment on above: Performed By: #### L 501.1400, L501.9520, L500.4050, L506.1000, L100.0100 #### [facility] [address] [place], [address] Basophils/100 WBC (Bld) 0.3 % Normal 0-1 [facility] Comment on above: Performed By: #### L 501.1400, L501.9520, L500.4050, L506.1000, L100.0100 #### [facility] [address] [place], [address] Eosinophils/100 WBC (Bld) 4.2 % Normal 0-5 [facility] Comment on above: Performed By: #### L 501.1400, L501.9520, L500.4050, L506.1000, L100.0100 #### [facility] [address] [place], [address] Erythrocyte distribution width (RBC) [Ratio] 13.2 % Normal 11.6-14.6 [facility] Comment on above: Performed By: #### L 501.1400, L501.9520, L500.4050, L506.1000, L100.0100 #### [facility] [address] [place], [address] Hematocrit (Bld) [Volume fraction] 34.4 % Low 40-54 [facility] Comment on above: Performed By: #### L 501.1400, L501.9520, L500.4050, L506.1000, L100.0100 #### [facility] [address] [place], [address] Hemoglobin (Bld) [Mass/Vol] 11.2 g/dL Low 13.0-16.5 [facility] Comment on above: Performed By: #### L 501.1400, L501.9520, L500.4050, L506.1000, L100.0100 #### [facility] [address] [place], [address] IG% 0.600 Normal 0.0-0.9 [facility] Comment on above: Result Comment: IG% - Immature Granulocytes (promyelocytes, myelocytes and metamyelocytes) > 1% indicates that a LEFT SHIFT is Present. Performed By: #### L 501.1400, L501.9520, L500.4050, L506.1000, L100.0100 #### [facility] [address] [place], [address] Lymphocytes/100 WBC (Bld) 23.9 % Normal 19-41 [facility] Comment on above: Performed By: #### L 501.1400, L501.9520, L500.4050, L506.1000, L100.0100 #### [facility] [address] [place], [address] MCH (RBC) [Entitic mass] 33.2 pg High 27.0-32.0 [facility] Comment on above: Performed By: #### L 501.1400, L501.9520, L500.4050, L506.1000, L100.0100 #### [facility] [address] [place], [address] MCHC (RBC) [Mass/Vol] 32.6 g/dL Normal 32-36 [facility] Comment on above: Performed By: #### L 501.1400, L501.9520, L500.4050, L506.1000, L100.0100 #### [facility] [address] [place], [address] MCV (RBC) [Entitic vol] 102.1 fL High 80-94 [facility] Comment on above: Performed By: #### L 501.1400, L501.9520, L500.4050, L506.1000, L100.0100 #### [facility] [address] [place], [address] Monocytes/100 WBC (Bld) 11.8 % High 0-10 [facility] Comment on above: Performed By: #### L 501.1400, L501.9520, L500.4050, L506.1000, L100.0100 #### [facility] [address] [place], [address] Neutrophils/100 WBC (Bld) 59.2 % Normal 47-70 [facility] Comment on above: Performed By: #### L 501.1400, L501.9520, L500.4050, L506.1000, L100.0100 #### [facility] [address] [place], [address] Nucleated RBC (Bld) [#/Vol] 0 10*3/uL Normal 0-5 [facility] Comment on above: Performed By: #### L 501.1400, L501.9520, L500.4050, L506.1000, L100.0100 #### [facility] [address] [place], [address] Platelet mean volume (Bld) [Entitic vol] 11.6 fL Normal 6.2-12.0 [facility] Comment on above: Performed By: #### L 501.1400, L501.9520, L500.4050, L506.1000, L100.0100 #### [facility] [address] [place], [address] Platelets (Bld) [#/Vol] 173 10*3/uL Normal 150-450 [facility] Comment on above: Performed By: #### L 501.1400, L501.9520, L500.4050, L506.1000, L100.0100 #### [facility] [address] [place], [address] RBC (Bld) [#/Vol] 3.37 10*6/uL Low 4.6-6.2 [facility] Comment on above: Performed By: #### L 501.1400, L501.9520, L500.4050, L506.1000, L100.0100 #### [facility] [address] [place], [address] RDW SD 49.9 fl High 35.1-43.9 [facility] Comment on above: Performed By: #### L 501.1400, L501.9520, L500.4050, L506.1000, L100.0100 #### [facility] [address] [place], [address] WBC (Bld) [#/Vol] 6.6 10*3/uL Normal 4.4-11.0 [facility] Comment on above: Performed By: #### L 501.1400, L501.9520, L500.4050, L506.1000, L100.0100 #### [facility] [address] [place], [address] Vancomycin, Random Levelon 0 - VANCO, RANDOM 16.0 ug/mL High 0.0-15.0 [facility] Comment on above: Result Comment: VANC OMYCIN STANDARD DRUG THERAPY: CRITICAL VALUE IS > 15.0 mg/L VANCOMYCIN HIGH INTENSITY THERAPY: CRITICAL VALUE IS > 20.0 mg/L PLEASE CONTACT PHARMACY SERVICES (#[id number]) FOR INTERPRETATION OF RESULTS. THIS RESULT DOES NOT REPRESENT A PEAK OR TROUGH LEVEL FOR THIS DRUG. Performed By: #### L 500.2500, L500.3400, L500.4100, L503.6620, L501.9520 #### [facility] [address] [place], [address] VANCO, RANDOM 21.9 ug/mL High 0.0-15.0 [facility] Comment on above: Result Comment: VANC OMYCIN STANDARD DRUG THERAPY: CRITICAL VALUE IS > 15.0 mg/L VANCOMYCIN HIGH INTENSITY THERAPY: CRITICAL VALUE IS > 20.0 mg/L PLEASE CONTACT PHARMACY SERVICES (#[id number]) FOR INTERPRETATION OF RESULTS. THIS RESULT DOES NOT REPRESENT A PEAK OR TROUGH LEVEL FOR THIS DRUG. Performed By: #### L 500.2500, L500.3400, L500.4100, L503.6620, L501.9520 #### [facility] [address] [facility] [place], [place], [id number] Wound Cultureon 05-30-2024 WC #1 Possible skin contamination, further Identification and sensitivity will be performed only by physician's request. Wound Culture #2 Previously Actinomyces odontolyticus. Susceptibility not normally performed on this organism. Coag Negative Staph Amount Growth Very Rare Schaalia odontolyticus Schaalia odontolyticus Normal [facility] Comment on above: Performed By: #### L 500.2500, L500.3400, L500.4100, L503.6620, L501.9520 #### [facility] [address] [place], [address] Basic Metabolic Profile (BMP )on 05-29-2024 BUN/CRE 25.1 RATIO High 10-20 [facility] Comment on above: Performed By: #### L 500.2500, L500.3400, L500.4100, L503.6620, L501.9520 #### [facility] [address] [place], [address] CA,Total 8.9 mg/dL Normal 8.5-10.1 [facility] Comment on above: Performed By: #### L 500.2500, L500.3400, L500.4100, L503.6620, L501.9520 #### [facility] [address] [place], [address] Chloride [Moles/Vol] 110 mmol/L High 98-107 [facility] Comment on above: Performed By: #### L 500.2500, L500.3400, L500.4100, L503.6620, L501.9520 #### [facility] [address] [place], [address] CO2 [Moles/Vol] 27.0 mmol/L Normal 21.0-32.0 [facility] Comment on above: Performed By: #### L 500.2500, L500.3400, L500.4100, L503.6620, L501.9520 #### [facility] [address] [place], [address] Creatinine [Mass/Vol] 0.84 mg/dL Normal 0.70-1.30 [facility] Comment on above: Result Comment: The validity of the calculated GFR GFRAA in patients over 70 years has not been determined. Clinical correlation is essential. Performed By: #### L 500.2500, L500.3400, L500.4100, L503.6620, L501.9520 #### [facility] [address] [place], [address] ECRCL 86.05 ml/min Normal [facility] Comment on above: Performed By: #### L 500.2500, L500.3400, L500.4100, L503.6620, L501.9520 #### [facility] [address] [place], [address] EST GFR - AA 114 mL/min Normal >60 [facility] Comment on above: Result Comment: Afri can Italian GFR Calc Performed By: #### L 500.2500, L500.3400, L500.4100, L503.6620, L501.9520 #### [facility] [address] [place], [address] GAP 3 Low 5-15 [facility] Comment on above: Performed By: #### L 500.2500, L500.3400, L500.4100, L503.6620, L501.9520 #### [facility] [address] [place], [address] GFR/1.73 sq M.predicted among non-blacks MDRD (S/P/Bld) [Vol rate/Area] 94 mL/min/{1.73_m2} Normal >60 [facility] Comment on above: Result Comment: Non- GFR Calc Performed By: #### L 500.2500, L500.3400, L500.4100, L503.6620, L501.9520 #### [facility] [address] [place], [address] Glucose [Mass/Vol] 113 mg/dL High 74-106 [facility] Comment on above: Result Comment: Fast ing Glucose result from 100 to 125 mg/dL suggests IMPAIRED HOMEOSTASIS per A.D.A. criteria. Performed By: #### L 500.2500, L500.3400, L500.4100, L503.6620, L501.9520 #### [facility] [address] [place], [address] Potassium [Moles/Vol] 3.8 mmol/L Normal 3.5-5.1 [facility] Comment on above: Performed By: #### L 500.2500, L500.3400, L500.4100, L503.6620, L501.9520 #### [facility] [address] [place], [address] Sodium [Moles/Vol] 140 mmol/L Normal 136-145 [facility] Comment on above: Performed By: #### L 500.2500, L500.3400, L500.4100, L503.6620, L501.9520 #### [facility] [address] [place], [address] Urea nitrogen [Mass/Vol] 21 mg/dL High 7-18 [facility] Comment on above: Performed By: #### L 500.2500, L500.3400, L500.4100, L503.6620, L501.9520 #### [facility] [address] [place], [address] CBC W/Diff, Automatedon 05-19-2024 Absolute Lymph 1.58 X10 3/uL Normal 0.83-4.51 [facility] Comment on above: Performed By: #### L 500.2500, L500.3400, L500.4100, L503.6620, L501.9520 #### [facility] [address] [place], [address] Absolute Neut 4.1 X10 3/uL Normal 2.0-7.7 [facility] Comment on above: Performed By: #### L 500.2500, L500.3400, L500.4100, L503.6620, L501.9520 #### [facility] [address] [place], [address] Basophils/100 WBC (Bld) 0.4 % Normal 0-1 [facility] Comment on above: Performed By: #### L 500.2500, L500.3400, L500.4100, L503.6620, L501.9520 #### [facility] [address] [place], [address] Eosinophils/100 WBC (Bld) 4.9 % Normal 0-5 [facility] Comment on above: Performed By: #### L 500.2500, L500.3400, L500.4100, L503.6620, L501.9520 #### [facility] [address] [place], [address] Erythrocyte distribution width (RBC) [Ratio] 13.3 % Normal 11.6-14.6 [facility] Comment on above: Performed By: #### L 500.2500, L500.3400, L500.4100, L503.6620, L501.9520 #### [facility] [address] [place], [address] Hematocrit (Bld) [Volume fraction] 33.7 % Low 40-54 [facility] Comment on above: Performed By: #### L 500.2500, L500.3400, L500.4100, L503.6620, L501.9520 #### [facility] [address] [place], [address] Hemoglobin (Bld) [Mass/Vol] 11.2 g/dL Low 13.0-16.5 [facility] Comment on above: Performed By: #### L 500.2500, L500.3400, L500.4100, L503.6620, L501.9520 #### [facility] [address] [place], [address] IG% 0.600 Normal 0.0-0.9 [facility] Comment on above: Result Comment: IG% - Immature Granulocytes (promyelocytes, myelocytes and metamyelocytes) > 1% indicates that a LEFT SHIFT is Present. Performed By: #### L 500.2500, L500.3400, L500.4100, L503.6620, L501.9520 #### [facility] [address] [place], [address] Lymphocytes/100 WBC (Bld) 23.4 % Normal 19-41 [facility] Comment on above: Performed By: #### L 500.2500, L500.3400, L500.4100, L503.6620, L501.9520 #### [facility] [address] [place], [address] MCH (RBC) [Entitic mass] 33.8 pg High 27.0-32.0 [facility] Comment on above: Performed By: #### L 500.2500, L500.3400, L500.4100, L503.6620, L501.9520 #### [facility] [address] [place], [address] MCHC (RBC) [Mass/Vol] 33.2 g/dL Normal 32-36 [facility] Comment on above: Performed By: #### L 500.2500, L500.3400, L500.4100, L503.6620, L501.9520 #### [facility] [address] [place], [address] MCV (RBC) [Entitic vol] 101.8 fL High 80-94 [facility] Comment on above: Performed By: #### L 500.2500, L500.3400, L500.4100, L503.6620, L501.9520 #### [facility] [address] [place], [address] Monocytes/100 WBC (Bld) 10.4 % High 0-10 [facility] Comment on above: Performed By: #### L 500.2500, L500.3400, L500.4100, L503.6620, L501.9520 #### [facility] [address] [place], [address] Neutrophils/100 WBC (Bld) 60.3 % Normal 47-70 [facility] Comment on above: Performed By: #### L 500.2500, L500.3400, L500.4100, L503.6620, L501.9520 #### [facility] [address] [place], [address] Nucleated RBC (Bld) [#/Vol] 0 10*3/uL Normal 0-5 [facility] Comment on above: Performed By: #### L 500.2500, L500.3400, L500.4100, L503.6620, L501.9520 #### [facility] [address] [place], [address] Platelet mean volume (Bld) [Entitic vol] 12.0 fL Normal 6.2-12.0 [facility] Comment on above: Performed By: #### L 500.2500, L500.3400, L500.4100, L503.6620, L501.9520 #### [facility] [address] [place], [address] Platelets (Bld) [#/Vol] 169 10*3/uL Normal 150-450 [facility] Comment on above: Performed By: #### L 500.2500, L500.3400, L500.4100, L503.6620, L501.9520 #### [facility] [address] [place], [address] RBC (Bld) [#/Vol] 3.31 10*6/uL Low 4.6-6.2 [facility] Comment on above: Performed By: #### L 500.2500, L500.3400, L500.4100, L503.6620, L501.9520 #### [facility] [address] [place], [address] RDW SD 50.0 fl High 35.1-43.9 [facility] Comment on above: Performed By: #### L 500.2500, L500.3400, L500.4100, L503.6620, L501.9520 #### [facility] [address] [place], [address] WBC (Bld) [#/Vol] 6.8 10*3/uL Normal 4.4-11.0 [facility] Comment on above: Performed By: #### L 500.2500, L500.3400, L500.4100, L503.6620, L501.9520 #### [facility] [address] [place], [address] Consultation - Surgicalon Consultation - Surgical [facility] Medical Records Department [address] [place] [address] Consultation - Surgical 05/29/24 1406 MR#: [id number] Acct: [id number] Name: ANTOINE PEREZ Rep #: [id number] : 1945 78 From: Ángel Quiroz MD PCP: Dr. Avni Walker MD Status:ADM IN Location: [place] [id number] Assessment Plan Assessment/Plan (1) Abscess: PLAN: Patient [...] incise or drain. Ángel Quiroz MD Pager: [facility] [address] [place] [address], [address] [place] [address] Office: HPI Consult Data Date of Consult: 05/29/24 HPI Narrative HPI Narrative: ANTOINE PEREZ, is a 78 M who presents with facial abscess. The patient reports that he had a biopsy done of his skin lesion and this got infected. The patient had this area incised on Friday. He has been in the hospital since on IV antibiotics. [facility] Medical History Wears hearing aid Depression Alcohol [...] intake frequen (more content not included)... Normal [facility] Vancomycin, Trough Levelon 0 05-29-2024 VANCO, TROUGH 29.0 ug/mL High 5.0-15.0 [facility] Comment on above: Order Comment: Comme nts: Trough to be drawn 30 mins prior to scheduled [id number] Result Comment: VANC OMYCIN STANDARED DRUG THERAPY TROUGH LEVEL: 5.0 - 15.0 mg/L VANCOMYCIN HIGH INTENSITY THERAPY TROUGH LEVEL: 15.0 - 20.0 mg/L High Intensity therapy recommended for serious life threatening infections include: - Meningitis -Endocarditis -Pneumonia (Ventilator/Healtcare Associated) -Sepsis PLEASE CONTACT PHARMACY SERVICES (#[phone]) FOR INTERPRETATION OF RESULTS. Performed By: #### L 500.2500, L500.3400, L500.4100, L503.6620, L501.9520 #### [facility] [address] [place], [address] CBC-Complete Blood Cnt No Di ffon 05-28-2024 Erythrocyte distribution width (RBC) [Ratio] 13.5 % Normal 11.6-14.6 [facility] Comment on above: Performed By: #### L 500.2500, L500.3400, L500.4100, L503.6620, L501.9520 #### [facility] [address] [place], [address] Hematocrit (Bld) [Volume fraction] 34.8 % Low 40-54 [facility] Comment on above: Performed By: #### L 500.2500, L500.3400, L500.4100, L503.6620, L501.9520 #### [facility] [address] [place], [address] Hemoglobin (Bld) [Mass/Vol] 11.5 g/dL Low 13.0-16.5 [facility] Comment on above: Performed By: #### L 500.2500, L500.3400, L500.4100, L503.6620, L501.9520 #### [facility] [address] [place], [address] MCH (RBC) [Entitic mass] 33.7 pg High 27.0-32.0 [facility] Comment on above: Performed By: #### L 500.2500, L500.3400, L500.4100, L503.6620, L501.9520 #### [facility] [address] [place], [address] MCHC (RBC) [Mass/Vol] 33.0 g/dL Normal 32-36 [facility] Comment on above: Performed By: #### L 500.2500, L500.3400, L500.4100, L503.6620, L501.9520 #### [facility] [address] [place], [address] MCV (RBC) [Entitic vol] 102.1 fL High 80-94 [facility] Comment on above: Performed By: #### L 500.2500, L500.3400, L500.4100, L503.6620, L501.9520 #### [facility] [address] [place], [address] Platelet mean volume (Bld) [Entitic vol] 12.0 fL Normal 6.2-12.0 [facility] Comment on above: Performed By: #### L 500.2500, L500.3400, L500.4100, L503.6620, L501.9520 #### [facility] [address] [place], [address] Platelets (Bld) [#/Vol] 160 10*3/uL Normal 150-450 [facility] Comment on above: Performed By: #### L 500.2500, L500.3400, L500.4100, L503.6620, L501.9520 #### [facility] [address] [place], [address] RBC (Bld) [#/Vol] 3.41 10*6/uL Low 4.6-6.2 [facility] Comment on above: Performed By: #### L 500.2500, L500.3400, L500.4100, L503.6620, L501.9520 #### [facility] [address] [place], [address] RDW SD 50.8 fl High 35.1-43.9 [facility] Comment on above: Performed By: #### L 500.2500, L500.3400, L500.4100, L503.6620, L501.9520 #### [facility] [address] [place], [address] WBC (Bld) [#/Vol] 6.6 10*3/uL Normal 4.4-11.0 [facility] Comment on above: Performed By: #### L 500.2500, L500.3400, L500.4100, L503.6620, L501.9520 #### [facility] [address] [place], [address] Comprehensive Metabolic Prof [facility] 05-28-2024 Albumin [Mass/Vol] 3.0 g/dL Low 3.2-5.0 [facility] Comment on above: Performed By: #### L 500.2500, L500.3400, L500.4100, L503.6620, L501.9520 #### [facility] [address] [place], [address] Albumin/Globulin [Mass ratio] 0.8 {ratio} Low 0.9-2.4 [facility] Comment on above: Performed By: #### L 500.2500, L500.3400, L500.4100, L503.6620, L501.9520 #### [facility] [address] [place], [address] ALK P 74 U/L Normal 45-117 [facility] Comment on above: Performed By: #### L 500.2500, L500.3400, L500.4100, L503.6620, L501.9520 #### [facility] [address] [place], [address] ALT [Catalytic activity/Vol] 22 U/L Normal 16-61 [facility] Comment on above: Performed By: #### L 500.2500, L500.3400, L500.4100, L503.6620, L501.9520 #### [facility] [address] [place], [address] AST [Catalytic activity/Vol] 15 U/L Normal 15-37 [facility] Comment on above: Performed By: #### L 500.2500, L500.3400, L500.4100, L503.6620, L501.9520 #### [facility] [address] [place], [address] Bilirubin [Mass/Vol] 0.50 mg/dL Normal 0.20-1.00 [facility] Comment on above: Result Comment: For patients on eltrombopag therapy, use of Dimension [place] TBIL is not recommended. Performed By: #### L 500.2500, L500.3400, L500.4100, L503.6620, L501.9520 #### [facility] [address] [place], [address] BUN/CRE 25.9 RATIO High 10-20 [facility] Comment on above: Performed By: #### L 500.2500, L500.3400, L500.4100, L503.6620, L501.9520 #### [facility] [address] [place], [address] CA,Total 8.9 mg/dL Normal 8.5-10.1 [facility] Comment on above: Performed By: #### L 500.2500, L500.3400, L500.4100, L503.6620, L501.9520 #### [facility] [address] [place], [address] Chloride [Moles/Vol] 111 mmol/L High 98-107 [facility] Comment on above: Performed By: #### L 500.2500, L500.3400, L500.4100, L503.6620, L501.9520 #### [facility] [address] [place], [address] CO2 [Moles/Vol] 25.0 mmol/L Normal 21.0-32.0 [facility] Comment on above: Performed By: #### L 500.2500, L500.3400, L500.4100, L503.6620, L501.9520 #### [facility] [address] [place], [address] Creatinine [Mass/Vol] 0.77 mg/dL Normal 0.70-1.30 [facility] Comment on above: Result Comment: The validity of the calculated GFR GFRAA in patients over 70 years has not been determined. Clinical correlation is essential. Performed By: #### L 500.2500, L500.3400, L500.4100, L503.6620, L501.9520 #### [facility] [address] [place], [address] ECRCL 90.36 ml/min Normal [facility] Comment on above: Performed By: #### L 500.2500, L500.3400, L500.4100, L503.6620, L501.9520 #### [facility] [address] [place], [address] EST GFR - AA 125 mL/min Normal >60 [facility] Comment on above: Result Comment: Afri can Italian GFR Calc Performed By: #### L 500.2500, L500.3400, L500.4100, L503.6620, L501.9520 #### [facility] [address] [place], [address] GAP 4 Low 5-15 [facility] Comment on above: Performed By: #### L 500.2500, L500.3400, L500.4100, L503.6620, L501.9520 #### [facility] [address] [place], [address] GFR/1.73 sq M.predicted among non-blacks MDRD (S/P/Bld) [Vol rate/Area] 103 mL/min/{1.73_m2} Normal >60 [facility] Comment on above: Result Comment: Non- GFR Calc Performed By: #### L 500.2500, L500.3400, L500.4100, L503.6620, L501.9520 #### [facility] [address] [place], [address] Globulin (S) [Mass/Vol] 3.8 g/dL Normal 2.2-4.2 [facility] Comment on above: Performed By: #### L 500.2500, L500.3400, L500.4100, L503.6620, L501.9520 #### [facility] [address] [place], [address] Glucose [Mass/Vol] 115 mg/dL High 74-106 [facility] Comment on above: Result Comment: Fast ing Glucose result from 100 to 125 mg/dL suggests IMPAIRED HOMEOSTASIS per A.D.A. criteria. Performed By: #### L 500.2500, L500.3400, L500.4100, L503.6620, L501.9520 #### [facility] [address] [place], [address] Potassium [Moles/Vol] 4.1 mmol/L Normal 3.5-5.1 [facility] Comment on above: Performed By: #### L 500.2500, L500.3400, L500.4100, L503.6620, L501.9520 #### [facility] [address] [place], [address] Sodium [Moles/Vol] 140 mmol/L Normal 136-145 [facility] Comment on above: Performed By: #### L 500.2500, L500.3400, L500.4100, L503.6620, L501.9520 #### [facility] [address] [place], [address] T PROT 6.8 g/dL Normal 6.4-8.2 [facility] Comment on above: Performed By: #### L 500.2500, L500.3400, L500.4100, L503.6620, L501.9520 #### [facility] [address] [place], [address] Urea nitrogen [Mass/Vol] 20 mg/dL High 7-18 [facility] Comment on above: Performed By: #### L 500.2500, L500.3400, L500.4100, L503.6620, L501.9520 #### [facility] [address] [place], [address] M8200.1000on 05-28-2024 M8200.1000 Normal Reference Ran ge = Negative MRSA DNA Nose Ql PADDY+probe GeneXpert Instrument, PCR method MRSA PCR MRSA NEGATIVE * This is an amended result. * A prior result that was reported as final has been changed. 05/29/24 0811 by TAVON [facility] Comment on above: Performed By: #### L 500.2500, L500.3400, L500.4100, L503.6620, L501.9520 #### [facility] [address] [place], [address] Magnesiumon 05-28-2024 Magnesium [Mass/Vol] 2.4 mg/dL Normal 1.6-2.6 [facility] Comment on above: Performed By: #### L 500.2500, L500.3400, L500.4100, L503.6620, L501.9520 #### [facility] [address] [place], [address] Phosphoruson 05-28-2024 Phosphate [Mass/Vol] 3.9 mg/dL Normal 2.5-4.9 [facility] Comment on above: Performed By: #### L 500.2500, L500.3400, L500.4100, L503.6620, L501.9520 #### [facility] [address] [place], [address] CBC W/Diff, Automatedon Absolute Lymph 1.26 X10 3/uL Normal 0.83-4.51 [facility] Comment on above: Performed By: #### L 500.2500, L500.3400, L500.4100, L503.6620, L501.9520 #### [facility] [address] [place], [address] Absolute Neut 5.6 X10 3/uL Normal 2.0-7.7 [facility] Comment on above: Performed By: #### L 500.2500, L500.3400, L500.4100, L503.6620, L501.9520 #### [facility] [address] [place], [address] Basophils/100 WBC (Bld) 0.4 % Normal 0-1 [facility] Comment on above: Performed By: #### L 500.2500, L500.3400, L500.4100, L503.6620, L501.9520 #### [facility] [address] [place], [address] Eosinophils/100 WBC (Bld) 3.2 % Normal 0-5 [facility] Comment on above: Performed By: #### L 500.2500, L500.3400, L500.4100, L503.6620, L501.9520 #### [facility] [address] [place], [address] Erythrocyte distribution width (RBC) [Ratio] 13.6 % Normal 11.6-14.6 [facility] Comment on above: Performed By: #### L 500.2500, L500.3400, L500.4100, L503.6620, L501.9520 #### [facility] [address] [place], [address] Hematocrit (Bld) [Volume fraction] 34.5 % Low 40-54 [facility] Comment on above: Performed By: #### L 500.2500, L500.3400, L500.4100, L503.6620, L501.9520 #### [facility] [address] [place], [address] Hemoglobin (Bld) [Mass/Vol] 11.2 g/dL Low 13.0-16.5 [facility] Comment on above: Performed By: #### L 500.2500, L500.3400, L500.4100, L503.6620, L501.9520 #### [facility] [address] [place], [address] IG% 0.700 Normal 0.0-0.9 [facility] Comment on above: Result Comment: IG% - Immature Granulocytes (promyelocytes, myelocytes and metamyelocytes) > 1% indicates that a LEFT SHIFT is Present. Performed By: #### L 500.2500, L500.3400, L500.4100, L503.6620, L501.9520 #### [facility] [address] [place], [address] Lymphocytes/100 WBC (Bld) 15.5 % Low 19-41 [facility] Comment on above: Performed By: #### L 500.2500, L500.3400, L500.4100, L503.6620, L501.9520 #### [facility] [address] [place], [address] MCH (RBC) [Entitic mass] 33.4 pg High 27.0-32.0 [facility] Comment on above: Performed By: #### L 500.2500, L500.3400, L500.4100, L503.6620, L501.9520 #### [facility] [address] [place], [address] MCHC (RBC) [Mass/Vol] 32.5 g/dL Normal 32-36 [facility] Comment on above: Performed By: #### L 500.2500, L500.3400, L500.4100, L503.6620, L501.9520 #### [facility] [address] [place], [address] MCV (RBC) [Entitic vol] 103.0 fL High 80-94 [facility] Comment on above: Performed By: #### L 500.2500, L500.3400, L500.4100, L503.6620, L501.9520 #### [facility] [address] [place], [address] Monocytes/100 WBC (Bld) 11.9 % High 0-10 [facility] Comment on above: Performed By: #### L 500.2500, L500.3400, L500.4100, L503.6620, L501.9520 #### [facility] [address] [place], [address] Neutrophils/100 WBC (Bld) 68.3 % Normal 47-70 [facility] Comment on above: Performed By: #### L 500.2500, L500.3400, L500.4100, L503.6620, L501.9520 #### [facility] [address] [place], [address] Nucleated RBC (Bld) [#/Vol] 0 10*3/uL Normal 0-5 [facility] Comment on above: Performed By: #### L 500.2500, L500.3400, L500.4100, L503.6620, L501.9520 #### [facility] [address] [place], [address] Platelet mean volume (Bld) [Entitic vol] 12.4 fL High 6.2-12.0 [facility] Comment on above: Performed By: #### L 500.2500, L500.3400, L500.4100, L503.6620, L501.9520 #### [facility] [address] [place], [address] Platelets (Bld) [#/Vol] 149 10*3/uL Low 150-450 [facility] Comment on above: Performed By: #### L 500.2500, L500.3400, L500.4100, L503.6620, L501.9520 #### [facility] [address] [place], [address] RBC (Bld) [#/Vol] 3.35 10*6/uL Low 4.6-6.2 [facility] Comment on above: Performed By: #### L 500.2500, L500.3400, L500.4100, L503.6620, L501.9520 #### [facility] [address] [place], [address] RDW SD 51.4 fl High 35.1-43.9 [facility] Comment on above: Performed By: #### L 500.2500, L500.3400, L500.4100, L503.6620, L501.9520 #### [facility] [address] [place], [address] WBC (Bld) [#/Vol] 8.2 10*3/uL Normal 4.4-11.0 [facility] Comment on above: Performed By: #### L 500.2500, L500.3400, L500.4100, L503.6620, L501.9520 #### [facility] [address] [place], [address] [facility] Albumin [Mass/Vol] 3.1 g/dL Low 3.2-5.0 [facility] Comment on above: Performed By: #### L 500.2500, L500.3400, L500.4100, L503.6620, L501.9520 #### [facility] [address] [place], [address] Albumin/Globulin [Mass ratio] 0.9 {ratio} Normal 0.9-2.4 [facility] Comment on above: Performed By: #### L 500.2500, L500.3400, L500.4100, L503.6620, L501.9520 #### [facility] [address] [place], [address] ALK P 78 U/L Normal 45-117 [facility] Comment on above: Performed By: #### L 500.2500, L500.3400, L500.4100, L503.6620, L501.9520 #### [facility] [address] [place], [address] ALT [Catalytic activity/Vol] 22 U/L Normal 16-61 [facility] Comment on above: Performed By: #### L 500.2500, L500.3400, L500.4100, L503.6620, L501.9520 #### [facility] [address] [place], [address] AST [Catalytic activity/Vol] 13 U/L Low 15-37 [facility] Comment on above: Performed By: #### L 500.2500, L500.3400, L500.4100, L503.6620, L501.9520 #### [facility] [address] [place], [address] Bilirubin [Mass/Vol] 0.40 mg/dL Normal 0.20-1.00 [facility] Comment on above: Result Comment: For patients on eltrombopag therapy, use of Dimension [place] TBIL is not recommended. Performed By: #### L 500.2500, L500.3400, L500.4100, L503.6620, L501.9520 #### [facility] [address] [place], [address] BUN/CRE 32.4 RATIO High 10-20 [facility] Comment on above: Performed By: #### L 500.2500, L500.3400, L500.4100, L503.6620, L501.9520 #### [facility] [address] [place], [address] CA,Total 8.9 mg/dL Normal 8.5-10.1 [facility] Comment on above: Performed By: #### L 500.2500, L500.3400, L500.4100, L503.6620, L501.9520 #### [facility] [address] [place], [address] Chloride [Moles/Vol] 109 mmol/L High 98-107 [facility] Comment on above: Performed By: #### L 500.2500, L500.3400, L500.4100, L503.6620, L501.9520 #### [facility] [address] [place], [address] CO2 [Moles/Vol] 26.0 mmol/L Normal 21.0-32.0 [facility] Comment on above: Performed By: #### L 500.2500, L500.3400, L500.4100, L503.6620, L501.9520 #### [facility] [address] [place], [address] Creatinine [Mass/Vol] 0.68 mg/dL Low 0.70-1.30 [facility] Comment on above: Result Comment: The validity of the calculated GFR GFRAA in patients over 70 years has not been determined. Clinical correlation is essential. Performed By: #### L 500.2500, L500.3400, L500.4100, L503.6620, L501.9520 #### [facility] [address] [place], [address] ECRCL 90.57 ml/min Normal [facility] Comment on above: Performed By: #### L 500.2500, L500.3400, L500.4100, L503.6620, L501.9520 #### [facility] [address] [place], [address] EST GFR - AA 145 mL/min Normal >60 [facility] Comment on above: Result Comment: Afri can Italian GFR Calc Performed By: #### L 500.2500, L500.3400, L500.4100, L503.6620, L501.9520 #### [facility] [address] [place], [address] GAP 4 Low 5-15 [facility] Comment on above: Performed By: #### L 500.2500, L500.3400, L500.4100, L503.6620, L501.9520 #### [facility] [address] [place], [address] GFR/1.73 sq M.predicted among non-blacks MDRD (S/P/Bld) [Vol rate/Area] 120 mL/min/{1.73_m2} Normal >60 [facility] Comment on above: Result Comment: Non- GFR Calc Performed By: #### L 500.2500, L500.3400, L500.4100, L503.6620, L501.9520 #### [facility] [address] [place], [address] Globulin (S) [Mass/Vol] 3.5 g/dL Normal 2.2-4.2 [facility] Comment on above: Performed By: #### L 500.2500, L500.3400, L500.4100, L503.6620, L501.9520 #### [facility] [address] [place], [address] Glucose [Mass/Vol] 109 mg/dL High 74-106 [facility] Comment on above: Result Comment: Fast ing Glucose result from 100 to 125 mg/dL suggests IMPAIRED HOMEOSTASIS per A.D.A. criteria. Performed By: #### L 500.2500, L500.3400, L500.4100, L503.6620, L501.9520 #### [facility] [address] [place], [address] Potassium [Moles/Vol] 4.0 mmol/L Normal 3.5-5.1 [facility] Comment on above: Performed By: #### L 500.2500, L500.3400, L500.4100, L503.6620, L501.9520 #### [facility] [address] [place], [address] Sodium [Moles/Vol] 138 mmol/L Normal 136-145 [facility] Comment on above: Performed By: #### L 500.2500, L500.3400, L500.4100, L503.6620, L501.9520 #### [facility] [address] [place], [address] T PROT 6.6 g/dL Normal 6.4-8.2 [facility] Comment on above: Performed By: #### L 500.2500, L500.3400, L500.4100, L503.6620, L501.9520 #### [facility] [address] [place], [address] Urea nitrogen [Mass/Vol] 22 mg/dL High 7-18 [facility] Comment on above: Performed By: #### L 500.2500, L500.3400, L500.4100, L503.6620, L501.9520 #### [facility] [address] [place], [address] Gram Stainon 05-27-2024 Gram Stain 1+ Gram positive cocci 4+ Gram variable bridgette No Epithelial cells 2+ White Blood Cells Normal [facility] Comment on above: Performed By: #### L 500.2500, L500.3400, L500.4100, L503.6620, L501.9520 #### [facility] [address] [place], [address] Vancomycin, Trough Levelon 0 05-27-2024 VANCO, TROUGH 19.6 ug/mL High 5.0-15.0 [facility] Comment on above: Order Comment: Comme nts: Trough to be drawn 30 mins prior to scheduled dose Result Comment: VANC OMYCIN STANDARED DRUG THERAPY TROUGH LEVEL: 5.0 - 15.0 mg/L VANCOMYCIN HIGH INTENSITY THERAPY TROUGH LEVEL: 15.0 - 20.0 mg/L High Intensity therapy recommended for serious life threatening infections include: - Meningitis -Endocarditis -Pneumonia (Ventilator/Healtcare Associated) -Sepsis PLEASE CONTACT PHARMACY SERVICES (#[id number]) FOR INTERPRETATION OF RESULTS. Performed By: #### L 501.1400, L501.9520, L500.4050, L506.1000, L100.0100 #### [facility] [address] [place], [address] Basic Metabolic Profile (BMP )on 05-26-2024 BUN/CRE 29.4 RATIO High 10-20 [facility] Comment on above: Performed By: #### L 500.2500, L500.3400, L500.4100, L503.6620, L501.9520 #### [facility] [address] [place], [address] CA,Total 9.4 mg/dL Normal 8.5-10.1 [facility] Comment on above: Performed By: #### L 500.2500, L500.3400, L500.4100, L503.6620, L501.9520 #### [facility] [address] [place], [address] Chloride [Moles/Vol] 106 mmol/L Normal 98-107 [facility] Comment on above: Performed By: #### L 500.2500, L500.3400, L500.4100, L503.6620, L501.9520 #### [facility] [address] [place], [address] CO2 [Moles/Vol] 28.0 mmol/L Normal 21.0-32.0 [facility] Comment on above: Performed By: #### L 500.2500, L500.3400, L500.4100, L503.6620, L501.9520 #### [facility] [address] [place], [address] Creatinine [Mass/Vol] 0.78 mg/dL Normal 0.70-1.30 [facility] Comment on above: Result Comment: The validity of the calculated GFR GFRAA in patients over 70 years has not been determined. Clinical correlation is essential. Performed By: #### L 500.2500, L500.3400, L500.4100, L503.6620, L501.9520 #### [facility] [address] [place], [address] ECRCL 91.08 ml/min Normal [facility] Comment on above: Performed By: #### L 500.2500, L500.3400, L500.4100, L503.6620, L501.9520 #### [facility] [address] [place], [address] EST GFR - AA 123 mL/min Normal >60 [facility] Comment on above: Result Comment: Afri can Italian GFR Calc Performed By: #### L 500.2500, L500.3400, L500.4100, L503.6620, L501.9520 #### [facility] [address] [place], [address] GAP 3 Low 5-15 [facility] Comment on above: Performed By: #### L 500.2500, L500.3400, L500.4100, L503.6620, L501.9520 #### [facility] [address] [place], [address] GFR/1.73 sq M.predicted among non-blacks MDRD (S/P/Bld) [Vol rate/Area] 102 mL/min/{1.73_m2} Normal >60 [facility] Comment on above: Result Comment: Non- GFR Calc Performed By: #### L 500.2500, L500.3400, L500.4100, L503.6620, L501.9520 #### [facility] [address] [place], [address] Glucose [Mass/Vol] 118 mg/dL High 74-106 [facility] Comment on above: Result Comment: Fast ing Glucose result from 100 to 125 mg/dL suggests IMPAIRED HOMEOSTASIS per A.D.A. criteria. Performed By: #### L 500.2500, L500.3400, L500.4100, L503.6620, L501.9520 #### [facility] [address] [place], [address] Potassium [Moles/Vol] 4.2 mmol/L Normal 3.5-5.1 [facility] Comment on above: Performed By: #### L 500.2500, L500.3400, L500.4100, L503.6620, L501.9520 #### [facility] [address] [place], [address] Sodium [Moles/Vol] 137 mmol/L Normal 136-145 [facility] Comment on above: Performed By: #### L 500.2500, L500.3400, L500.4100, L503.6620, L501.9520 #### [facility] [address] [place], [address] Urea nitrogen [Mass/Vol] 23 mg/dL High 7-18 [facility] Comment on above: Performed By: #### L 500.2500, L500.3400, L500.4100, L503.6620, L501.9520 #### [facility] [address] [place], [address] CBC W/Diff, Automatedon 01-0 Absolute Lymph 1.38 X10 3/uL Normal 0.83-4.51 [facility] Comment on above: Performed By: #### L 500.2500, L500.3400, L500.4100, L503.6620, L501.9520 #### [facility] [address] [place], [address] Absolute Neut 7.3 X10 3/uL Normal 2.0-7.7 [facility] Comment on above: Performed By: #### L 500.2500, L500.3400, L500.4100, L503.6620, L501.9520 #### [facility] [address] [place], [address] Basophils/100 WBC (Bld) 0.2 % Normal 0-1 [facility] Comment on above: Performed By: #### L 500.2500, L500.3400, L500.4100, L503.6620, L501.9520 #### [facility] [address] [place], [address] Eosinophils/100 WBC (Bld) 1.7 % Normal 0-5 [facility] Comment on above: Performed By: #### L 500.2500, L500.3400, L500.4100, L503.6620, L501.9520 #### [facility] [address] [place], [address] Erythrocyte distribution width (RBC) [Ratio] 13.8 % Normal 11.6-14.6 [facility] Comment on above: Performed By: #### L 500.2500, L500.3400, L500.4100, L503.6620, L501.9520 #### [facility] [address] [place], [address] Hematocrit (Bld) [Volume fraction] 35.8 % Low 40-54 [facility] Comment on above: Performed By: #### L 500.2500, L500.3400, L500.4100, L503.6620, L501.9520 #### [facility] [address] [place], [address] Hemoglobin (Bld) [Mass/Vol] 12.2 g/dL Low 13.0-16.5 [facility] Comment on above: Performed By: #### L 500.2500, L500.3400, L500.4100, L503.6620, L501.9520 #### [facility] [address] [place], [address] IG% 0.700 Normal 0.0-0.9 [facility] Comment on above: Result Comment: IG% - Immature Granulocytes (promyelocytes, myelocytes and metamyelocytes) > 1% indicates that a LEFT SHIFT is Present. Performed By: #### L 500.2500, L500.3400, L500.4100, L503.6620, L501.9520 #### [facility] [address] [place], [address] Lymphocytes/100 WBC (Bld) 13.8 % Low 19-41 [facility] Comment on above: Performed By: #### L 500.2500, L500.3400, L500.4100, L503.6620, L501.9520 #### [facility] [address] [place], [address] MCH (RBC) [Entitic mass] 33.8 pg High 27.0-32.0 [facility] Comment on above: Performed By: #### L 500.2500, L500.3400, L500.4100, L503.6620, L501.9520 #### [facility] [address] [place], [address] MCHC (RBC) [Mass/Vol] 34.1 g/dL Normal 32-36 [facility] Comment on above: Performed By: #### L 500.2500, L500.3400, L500.4100, L503.6620, L501.9520 #### [facility] [address] [place], [address] MCV (RBC) [Entitic vol] 99.2 fL High 80-94 [facility] Comment on above: Performed By: #### L 500.2500, L500.3400, L500.4100, L503.6620, L501.9520 #### [facility] [address] [place], [address] Monocytes/100 WBC (Bld) 10.6 % High 0-10 [facility] Comment on above: Performed By: #### L 500.2500, L500.3400, L500.4100, L503.6620, L501.9520 #### [facility] [address] [place], [address] Neutrophils/100 WBC (Bld) 73.0 % High 47-70 [facility] Comment on above: Performed By: #### L 500.2500, L500.3400, L500.4100, L503.6620, L501.9520 #### [facility] [address] [place], [address] Nucleated RBC (Bld) [#/Vol] 0 10*3/uL Normal 0-5 [facility] Comment on above: Performed By: #### L 500.2500, L500.3400, L500.4100, L503.6620, L501.9520 #### [facility] [address] [place], [address] Platelet mean volume (Bld) [Entitic vol] 12.1 fL High 6.2-12.0 [facility] Comment on above: Performed By: #### L 500.2500, L500.3400, L500.4100, L503.6620, L501.9520 #### [facility] [address] [place], [address] Platelets (Bld) [#/Vol] 151 10*3/uL Normal 150-450 [facility] Comment on above: Performed By: #### L 500.2500, L500.3400, L500.4100, L503.6620, L501.9520 #### [facility] [address] [place], [address] RBC (Bld) [#/Vol] 3.61 10*6/uL Low 4.6-6.2 [facility] Comment on above: Performed By: #### L 500.2500, L500.3400, L500.4100, L503.6620, L501.9520 #### [facility] [address] [place], [address] RDW SD 49.9 fl High 35.1-43.9 [facility] Comment on above: Performed By: #### L 500.2500, L500.3400, L500.4100, L503.6620, L501.9520 #### [facility] [address] [place], [address] WBC (Bld) [#/Vol] 10.0 10*3/uL Normal 4.4-11.0 [facility] Comment on above: Performed By: #### L 500.2500, L500.3400, L500.4100, L503.6620, L501.9520 #### [facility] [address] [place], [address] Emergency Department Summary on 05-26-2024 Emergency Department Summary [facility] Medical Records Department [address] [place] [address] Emergency Department Summary 05/26/24 MR#: [id number] Acct: [id number] Name: ANTOINE PEREZ Rep #: [id number] : 1945 78 From: Paco Bailey MD PCP: Dr. Avni Walker MD Status:ADM IN Location: [place] [address] HPI History of Present Illness Chief Complaint: [...] Hematologic/Lymphatic Prosper (more content not included)... Normal [facility]P Exam - Hospitalist [facility] Medical Records Department [address] [place] [address] H P Exam - Hospitalist 05/26/24 1623 MR#: [id number] Acct: [id number] Name: ANTOINE PEREZ Rep #: [id number] : 1945 78 From: Fabiola Lowery MD PCP: Dr. Avni Walker MD Status:ADM IN Location: [place] [address] HPI - General General Date of Admission: 05/26/24 Date of Service: 05/26/24 Chief Complaint: Worsening R neck cellulitis, abscess. HPI Narrative The patient is a 78 y/o M w/ PMHx: Chronic macrocytic anemia, Obesity, Anxiety and Depression, Former tobacco use, PAF/Flutter, Chronic bradycardia, BPH with obstructive pathology, Nonischemic cardiomyopathy who presents to the [facility] ED on 05/26/24 with history of [...] administered Unasyn 3 g IV x 1. [facility] Medical History Wears hearing aid Depression Alcohol [...] cataract surgery (more content not included)... Normal [facility] MRSA Wound DNA by PCRon MRSA DNA ASSAY Negative Normal Negative [facility] Comment on above: Order Comment: subme ntal abscess Performed By: #### L 500.2500, L500.3400, L500.4100, L503.6620, L501.9520 #### [facility] [address] [facility] [place], [address] SA DNA ASSAY Negative Normal Negative [facility] Comment on above: Order Comment: subme ntal abscess Performed By: #### L 500.2500, L500.3400, L500.4100, L503.6620, L501.9520 #### [facility] [address] [place], [address] Soft Tissue Neck WITH Contra ston 05-26-2024 Soft Tissue Neck WITH Contrast [facility] Imaging Services [address] [place] [address] Soft Tissue Neck WITH Contrast MR#: [id number] Acct: [id number] Name: ANTOINE PEREZ Rep #: [id number] : 1945 M 78 From: Jesse roblero MD PCP: Dr. Avni Walker MD Status: REG ER Study: Soft Tissue Neck WITH Contrast Date of Exam: 0 05/26/24 Exam# [id number] Ordering Dr: [place] [id number] INDICATION: submental abscess. CT BX PERFORMED 05/20/24 [...] Paco Bailey MD; Dr. Avni Walker MD Third Shift Lieutenant: Signed Normal [facility] Emergency Department Summary on 05-23-2024 Emergency Department Summary [facility] Medical Records Department [address] [place] [address] Emergency Department Summary 05/23/24 MR#: [id number] Acct: [id number] Name: ANTOINE PEREZ Rep #: [id number] : 1945 78 From: Torrey Leal MD [...] abscess that was getting ready to burst. [facility] Medical History Wears hearing aid Depression [...] Airway pat (more content not included)... Normal [facility] Operative Reporton Operative Report [facility] Medical Records Department [address] [place] [address] Operative Report 05/20/24 0956 MR#: [id number] Acct: [id number] Name: ANTOINE PEREZ Rep #: [id number] : 1945 78 From: Linda Perez MAINTENANCE SERVICE TECHNICIAN MAINTENANCE SERVICE TECHNICIAN-C PCP: Dr. 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, [address] Platelet Counton 05-20-2024 Platelets (Bld) [#/Vol] 149 10*3/uL Low 150-450 [facility] Comment on above: Performed By: #### L 501.1400, L501.9520, L500.4050, L506.1000, L100.0100 #### [facility] [address] [place], [place], [address] Prothrombin Time w/INRon INR Coag (PPP) [Relative time] 1.0 {INR} Normal [facility] Comment on above: Performed By: #### L 501.1400, L501.9520, L500.4050, L506.1000, L100.0100 #### [facility] [address] [place], [address] PT Coag (PPP) [Time] 13.7 s Normal 11.7-14.9 [facility] Comment on above: Performed By: #### L 501.1400, L501.9520, L500.4050, L506.1000, L100.0100 #### [facility] [address] [place], [place], [address] Special Stain Group IIon Special Stain Group II ------ Patient Age/Sex Location Account Attending Physician ANTOINE PEREZ 78/M CT [id number] Dr. Avni Walker MD Specimen: [id number] Received: 05/20/24 Status: KAYLENE Hernandez Num: [id number] Spec Type: ASP RAD Subm Dr: Dr. [...] core biopsy. .mr 05/20/2024 TC: Cannot code CPT:88302,52271 Patient Age/Sex Location Account Attending Physician ANTOINE PEREZ 78/M CT [id number] Dr. Avni Walker MD ADDENDUM Addendum 1 Entered: 05/25/24-0853 Portion of the specimen is saved for flow cytometry study and is submitted in cassette 2 and shows skin with dermal chronic inflammation. SJ.mr 05/25/2024 Addendum Signed (signature on file) Dr. Gennaro Joe MD 05/25/24 1258 Patient Age/Sex Location Account Attending Physician ANTOINE PEREZ 78/M CT [id number] Dr. Avni Walker MD Signed (signature on file) Dr. Gennaro Joe MD 05/21/24 1131 Normal [facility] Comment on above: Performed By: #### L 500.2500, L500.3400, L500.4100, L503.6620, L501.9520 #### [facility] [place], [address] Special Stain Group II ------ Patient Age/Sex Location Account Attending Physician ANTOINE PEREZ 78/M CT [id number] Dr. Avni Walker MD Specimen: [id number] Received: 05/20/24 Status: KAYLENE Hernandez Num: [id number] Spec Type: Fluid Subm Dr: Dr. Avni [...] Mr 05/20/2024 TC: Can not code CPT: 17447,31762 Signed (signature on file) Dr. Gennaro Joe MD 05/21/24 1134 Normal [facility] Comment on above: Performed By: #### L 500.2500, L500.3400, L500.4100, L503.6620, L501.9520 #### [facility] [address] [facility] [place], [address] Orbit Face Neck W/WO Contras ton 04-13-2024 Orbit Face Neck W/WO Contrast [facility] Imaging Services [address] [place], [place] [address] Orbit Face Neck W/WO Contrast MR#: [id number] Acct: [id number] Name: ANTOINE PEREZ Rep #: [id number] : 1945 M 78 From: Aries Donis MD PCP: Dr. Avni Walker MD Status: REG CLI Study: Orbit Face Neck W/WO Contrast Date of Exam: Exam# [id number] Ordering Dr: [place] [id number] STUDY: MRI ORBITS WITH AND WITHOUT CONTRAST [...] EST , CC: Dr. Avni Walker MD Third Shift Lieutenant: Signed Normal [facility] Abdomen Limitedon 03-19-2024 Abdomen Limited [facility] Imaging Services [address] [place] [address] Abdomen Limited MR#: [id number] Acct: [id number] Name: ANTOINE PEREZ Rep #: [id number] : 1945 M 78 From: Maxx mims MD PCP: Dr. Avni Walker MD Status: REG CL Study: Abdomen Limited Date of Exam: 03/19/24 Exam# [id number] Ordering [place]: [place] [id number] INDICATION: LIPOMA, LEFT LOWER BACK EXAMINATION: Ultrasound [...] EDT , CC: Dr. Avni Walker MD Third Shift Lieutenant: Signed Normal [facility] CBC W/Diff, Automatedon 10-2 Absolute Lymph 1.90 X10 3/uL Normal 0.83-4.51 [facility] Comment on above: Performed By: #### L 501.1400, L501.9520, L500.4050, L506.1000, L100.0100 #### [facility] [address] [place], [address] Absolute Neut 5.8 X10 3/uL Normal 2.0-7.7 [facility] Comment on above: Performed By: #### L 501.1400, L501.9520, L500.4050, L506.1000, L100.0100 #### [facility] [address] [place], [address] Basophils/100 WBC (Bld) 0.3 % Normal 0-1 [facility] Comment on above: Performed By: #### L 501.1400, L501.9520, L500.4050, L506.1000, L100.0100 #### [facility] [address] [place], [address] Eosinophils/100 WBC (Bld) 3.3 % Normal 0-5 [facility] Comment on above: Performed By: #### L 501.1400, L501.9520, L500.4050, L506.1000, L100.0100 #### [facility] [address] [place], [address] Erythrocyte distribution width (RBC) [Ratio] 13.5 % Normal 11.6-14.6 [facility] Comment on above: Performed By: #### L 501.1400, L501.9520, L500.4050, L506.1000, L100.0100 #### [facility] [address] [place], [address] Hematocrit (Bld) [Volume fraction] 39.2 % Low 40-54 [facility] Comment on above: Performed By: #### L 501.1400, L501.9520, L500.4050, L506.1000, L100.0100 #### [facility] [address] [place], [address] Hemoglobin (Bld) [Mass/Vol] 12.8 g/dL Low 13.0-16.5 [facility] Comment on above: Performed By: #### L 501.1400, L501.9520, L500.4050, L506.1000, L100.0100 #### [facility] [address] [place], [address] IG% 1.000 High 0.0-0.9 [facility] Comment on above: Result Comment: IG% - Immature Granulocytes (promyelocytes, myelocytes and metamyelocytes) > 1% indicates that a LEFT SHIFT is Present. Performed By: #### L 501.1400, L501.9520, L500.4050, L506.1000, L100.0100 #### [facility] [address] [place], [address] Lymphocytes/100 WBC (Bld) 21.4 % Normal 19-41 [facility] Comment on above: Performed By: #### L 501.1400, L501.9520, L500.4050, L506.1000, L100.0100 #### [facility] [address] [place], [address] MCH (RBC) [Entitic mass] 33.1 pg High 27.0-32.0 [facility] Comment on above: Performed By: #### L 501.1400, L501.9520, L500.4050, L506.1000, L100.0100 #### [facility] [address] [place], [address] MCHC (RBC) [Mass/Vol] 32.7 g/dL Normal 32-36 [facility] Comment on above: Performed By: #### L 501.1400, L501.9520, L500.4050, L506.1000, L100.0100 #### [facility] [address] [place], [address] MCV (RBC) [Entitic vol] 101.3 fL High 80-94 [facility] Comment on above: Performed By: #### L 501.1400, L501.9520, L500.4050, L506.1000, L100.0100 #### [facility] [address] [place], [address] Monocytes/100 WBC (Bld) 9.0 % Normal 0-10 [facility] Comment on above: Performed By: #### L 501.1400, L501.9520, L500.4050, L506.1000, L100.0100 #### [facility] [address] [place], [address] Neutrophils/100 WBC (Bld) 65.0 % Normal 47-70 [facility] Comment on above: Performed By: #### L 501.1400, L501.9520, L500.4050, L506.1000, L100.0100 #### [facility] [address] [place], [address] Nucleated RBC (Bld) [#/Vol] 0 10*3/uL Normal 0-5 [facility] Comment on above: Performed By: #### L 501.1400, L501.9520, L500.4050, L506.1000, L100.0100 #### [facility] [address] [place], [address] Platelet mean volume (Bld) [Entitic vol] 13.1 fL High 6.2-12.0 [facility] Comment on above: Performed By: #### L 501.1400, L501.9520, L500.4050, L506.1000, L100.0100 #### [facility] [address] [place], [address] Platelets (Bld) [#/Vol] 161 10*3/uL Normal 150-450 [facility] Comment on above: Performed By: #### L 501.1400, L501.9520, L500.4050, L506.1000, L100.0100 #### [facility] [address] [place], [address] RBC (Bld) [#/Vol] 3.87 10*6/uL Low 4.6-6.2 [facility] Comment on above: Performed By: #### L 501.1400, L501.9520, L500.4050, L506.1000, L100.0100 #### [facility] [address] [place], [address] RDW SD 50.7 fl High 35.1-43.9 [facility] Comment on above: Performed By: #### L 501.1400, L501.9520, L500.4050, L506.1000, L100.0100 #### [facility] [address] [place], [address] WBC (Bld) [#/Vol] 8.9 10*3/uL Normal 4.4-11.0 [facility] Comment on above: Performed By: #### L 501.1400, L501.9520, L500.4050, L506.1000, L100.0100 #### [facility] [address] [place], [address] [facility] 03-15-2024 Albumin [Mass/Vol] 3.8 g/dL Normal 3.2-5.0 [facility] Comment on above: Performed By: #### L 501.1400, L501.9520, L500.4050, L506.1000, L100.0100 #### [facility] [address] [place], [address] Albumin/Globulin [Mass ratio] 1.0 {ratio} Normal 0.9-2.4 [facility] Comment on above: Performed By: #### L 501.1400, L501.9520, L500.4050, L506.1000, L100.0100 #### [facility] [address] [place], [address] ALK P 80 U/L Normal 45-117 [facility] Comment on above: Performed By: #### L 501.1400, L501.9520, L500.4050, L506.1000, L100.0100 #### [facility] [address] [place], [address] ALT [Catalytic activity/Vol] 29 U/L Normal 16-61 [facility] Comment on above: Performed By: #### L 501.1400, L501.9520, L500.4050, L506.1000, L100.0100 #### [facility] [address] [place], [address] AST [Catalytic activity/Vol] 17 U/L Normal 15-37 [facility] Comment on above: Performed By: #### L 501.1400, L501.9520, L500.4050, L506.1000, L100.0100 #### [facility] [address] [place], [address] Bilirubin [Mass/Vol] 0.40 mg/dL Normal 0.20-1.00 [facility] Comment on above: Result Comment: For patients on eltrombopag therapy, use of Dimension [place] TBIL is not recommended. Performed By: #### L 501.1400, L501.9520, L500.4050, L506.1000, L100.0100 #### [facility] [address] [place], [address] BUN/CRE 27.3 RATIO High 10-20 [facility] Comment on above: Performed By: #### L 501.1400, L501.9520, L500.4050, L506.1000, L100.0100 #### [facility] [address] [place], [address] CA,Total 9.3 mg/dL Normal 8.5-10.1 [facility] Comment on above: Performed By: #### L 501.1400, L501.9520, L500.4050, L506.1000, L100.0100 #### [facility] [address] [place], [address] Chloride [Moles/Vol] 105 mmol/L Normal 98-107 [facility] Comment on above: Performed By: #### L 501.1400, L501.9520, L500.4050, L506.1000, L100.0100 #### [facility] [address] [place], [address] CO2 [Moles/Vol] 29.0 mmol/L Normal 21.0-32.0 [facility] Comment on above: Performed By: #### L 501.1400, L501.9520, L500.4050, L506.1000, L100.0100 #### [facility] [address] [place], [address] Creatinine [Mass/Vol] 0.77 mg/dL Normal 0.70-1.30 [facility] Comment on above: Result Comment: The validity of the calculated GFR GFRAA in patients over 70 years has not been determined. Clinical correlation is essential. Performed By: #### L 501.1400, L501.9520, L500.4050, L506.1000, L100.0100 #### [facility] [address] [place], [address] EST GFR - AA 125 mL/min Normal >60 [facility] Comment on above: Result Comment: Afri can Italian GFR Calc Performed By: #### L 501.1400, L501.9520, L500.4050, L506.1000, L100.0100 #### [facility] [address] [place], [address] GAP 8 Normal 5-15 [facility] Comment on above: Performed By: #### L 501.1400, L501.9520, L500.4050, L506.1000, L100.0100 #### [facility] [address] [place], [address] GFR/1.73 sq M.predicted among non-blacks MDRD (S/P/Bld) [Vol rate/Area] 104 mL/min/{1.73_m2} Normal >60 [facility] Comment on above: Result Comment: Non- GFR Calc Performed By: #### L 501.1400, L501.9520, L500.4050, L506.1000, L100.0100 #### [facility] [address] [place], [address] Globulin (S) [Mass/Vol] 3.7 g/dL Normal 2.2-4.2 [facility] Comment on above: Performed By: #### L 501.1400, L501.9520, L500.4050, L506.1000, L100.0100 #### [facility] [address] [place], [address] Glucose [Mass/Vol] 87 mg/dL Normal 74-106 [facility] Comment on above: Performed By: #### L 501.1400, L501.9520, L500.4050, L506.1000, L100.0100 #### [facility] [address] [place], [address] Potassium [Moles/Vol] 4.1 mmol/L Normal 3.5-5.1 [facility] Comment on above: Performed By: #### L 501.1400, L501.9520, L500.4050, L506.1000, L100.0100 #### [facility] [address] [place], [address] Sodium [Moles/Vol] 142 mmol/L Normal 136-145 [facility] Comment on above: Performed By: #### L 501.1400, L501.9520, L500.4050, L506.1000, L100.0100 #### [facility] [address] [place], [address] T PROT 7.5 g/dL Normal 6.4-8.2 [facility] Comment on above: Performed By: #### L 501.1400, L501.9520, L500.4050, L506.1000, L100.0100 #### [facility] [address] [place], [address] Urea nitrogen [Mass/Vol] 21 mg/dL High 7-18 [facility] Comment on above: Performed By: #### L 501.1400, L501.9520, L500.4050, L506.1000, L100.0100 #### [facility] [address] [place], [address] Thyroid Stim Hormone (TSH)on 03-15-2024 TSH 0.955 uIU/mL Normal 0.358-3.740 [facility] Comment on above: Performed By: #### L 501.1400, L501.9520, L500.4050, L506.1000, L100.0100 #### [facility] [address] [place], [address] Uric Acidon 03-15-2024 URIC 4.9 mg/dL Normal 3.5-7.2 [facility] Comment on above: Result Comment: The drugs N-Acetylcysteine and Metamizole may falsely depress this assay. Performed By: #### L 501.1400, L501.9520, L500.4050, L506.1000, L100.0100 #### [facility] [address] [place], [address] Vitamin D,25 Hydroxyon 03-15 Vitamin D 25-OH 47.9 ng/mL Normal [facility] Comment on above: Result Comment: Lizz min D 25(OH) Status Range Deficiency <20 ng/mL (50nmol/L) Insufficiency 20 - 30 ng/mL (50 - 75 nmol/L) Sufficiency 30 - 100 ng/mL (75 - 250 nmol/L) Toxicity >100 ng/mL (>250 nmol/L) Performed By: #### L 501.1400, L501.9520, L500.4050, L506.1000, L100.0100 #### [facility] [address] [place], [address] BNP,B-Type NATRIURETIC PEPTI Frankie 03-09-2024 Natriuretic peptide B (Bld) [Mass/Vol] 44.8 pg/mL Normal 0-100 [facility] Comment on above: Performed By: #### L 500.2500, L500.3400, L500.4100, L503.6620, L501.9520 #### [facility] [address] [place], [address] Basic Metabolic Profile (BMP )on 03-09-2024 BUN/CRE 33.7 RATIO High 03-07 [facility] Comment on above: Performed By: #### L 500.2500, L500.3400, L500.4100, L503.6620, L501.9520 #### [facility] [address] [place], [address] CA,Total 9.4 mg/dL Normal 8.5-10.1 [facility] Comment on above: Performed By: #### L 500.2500, L500.3400, L500.4100, L503.6620, L501.9520 #### [facility] [address] [place], [address] Chloride [Moles/Vol] 106 mmol/L Normal 98-107 [facility] Comment on above: Performed By: #### L 500.2500, L500.3400, L500.4100, L503.6620, L501.9520 #### [facility] [address] [place], [address] CO2 [Moles/Vol] 29.0 mmol/L Normal 21.0-32.0 [facility] Comment on above: Performed By: #### L 500.2500, L500.3400, L500.4100, L503.6620, L501.9520 #### [facility] [address] [place], [address] Creatinine [Mass/Vol] 0.86 mg/dL Normal 0.70-1.30 [facility] Comment on above: Result Comment: The validity of the calculated GFR GFRAA in patients over 70 years has not been determined. Clinical correlation is essential. Performed By: #### L 500.2500, L500.3400, L500.4100, L503.6620, L501.9520 #### [facility] [address] [place], [address] EST GFR - AA 110 mL/min Normal >60 [facility] Comment on above: Result Comment: Afri can Italian GFR Calc Performed By: #### L 500.2500, L500.3400, L500.4100, L503.6620, L501.9520 #### [facility] [address] [place], [address] GAP 6 Normal 5-15 [facility] Comment on above: Performed By: #### L 500.2500, L500.3400, L500.4100, L503.6620, L501.9520 #### [facility] [address] [place], [address] GFR/1.73 sq M.predicted among non-blacks MDRD (S/P/Bld) [Vol rate/Area] 91 mL/min/{1.73_m2} Normal >60 [facility] Comment on above: Result Comment: Non- GFR Calc Performed By: #### L 500.2500, L500.3400, L500.4100, L503.6620, L501.9520 #### [facility] [address] [place], [address] Glucose [Mass/Vol] 94 mg/dL Normal 74-106 [facility] Comment on above: Performed By: #### L 500.2500, L500.3400, L500.4100, L503.6620, L501.9520 #### [facility] [address] [place], [address] Potassium [Moles/Vol] 4.0 mmol/L Normal 3.5-5.1 [facility] Comment on above: Performed By: #### L 500.2500, L500.3400, L500.4100, L503.6620, L501.9520 #### [facility] [address] [place], [address] Sodium [Moles/Vol] 140 mmol/L Normal 136-145 [facility] Comment on above: Performed By: #### L 500.2500, L500.3400, L500.4100, L503.6620, L501.9520 #### [facility] [address] [place], [address] Urea nitrogen [Mass/Vol] 29 mg/dL High 7-18 [facility] Comment on above: Performed By: #### L 500.2500, L500.3400, L500.4100, L503.6620, L501.9520 #### [facility] [address] [place], [address] Cardiology Visit Reporton Cardiology Visit Report [facility] [address] [place] [address] OFFICE VISIT Date of Service: 03/09/24 MR#: [id number] Acct: [id number] Name: ANTOINE PEREZ Rep #: [id number] : 1945 Provider: Dr. Sai Murphy MD Age/Sex: 78/M Location: [facility] Status: Signed HPI [facility] History of Present Illness Details: This is a 78-year-old gentleman that presents here today for a cardiovascular follow-up. Patient was admitted to [facility] on January 05, 2020 where he [...] obstructive sleep apnea. 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 Normal [facility] Chest PA and Lateralon 03-09 Chest PA and Lateral [facility] [place] [address] Chest PA and Lateral MR#: [id number] Acct: [id number] Name: ANTOINE PEREZ Rep #: [id number] : 1945 M 78 From: Fredy Peres MD PCP: Dr. Avni Walker MD Status: REG CLI Study: Chest PA and Lateral Date of Exam: 03/09/24 Exam# [id number] Ordering [place]: [place] [id number] STUDY: X-RAY CHEST REASON FOR EXAM: Male, [...] Sai Murphy MD; Dr. Avni Walker MD Third Shift Lieutenant: Signed Normal [facility] Lipid Profileon 03-09-2024 Cholesterol [Mass/Vol] 154 mg/dL Normal 200 [facility] Comment on above: Result Comment: <200 mg/dL Desirable 200-240 mg/dL Borderline >240 mg/dL High Risk Performed By: #### L 500.2500, L500.3400, L500.4100, L503.6620, L501.9520 #### [facility] [address] [place], [address] Cholesterol in HDL [Mass/Vol] 57 mg/dL Normal [facility] Comment on above: Result Comment: The drugs N-Acetylcysteine and Metamizole may falsely depress this assay. Reference Range HDL <40 mg/dL Low HDL Cholesterol HDL >or= 60 mg/dL High HDL Cholesterol Performed By: #### L 500.2500, L500.3400, L500.4100, L503.6620, L501.9520 #### [facility] [address] [place], [address] Cholesterol in LDL [Mass/Vol] 70 mg/dL Normal 0-130 [facility] Comment on above: Performed By: #### L 500.2500, L500.3400, L500.4100, L503.6620, L501.9520 #### [facility] [address] [place], [address] Cholesterol in VLDL [Mass/Vol] 27 mg/dL Normal 5-40 [facility] Comment on above: Performed By: #### L 500.2500, L500.3400, L500.4100, L503.6620, L501.9520 #### [facility] [address] [place], [address] Triglyceride [Mass/Vol] 133 mg/dL Normal [facility] Comment on above: Result Comment: The drugs N-Acetylcysteine and Metamizole may falsely depress this assay. Serum Triglycerides Reference Interval Normal <150 mg/dL Borderline high 150 - 199 mg/dL High 200 - 499 mg/dL Very High > or = 500 mg/dL Performed By: #### L 500.2500, L500.3400, L500.4100, L503.6620, L501.9520 #### [facility] [address] [place], [address] Liver Profileon 03-09-2024 Albumin [Mass/Vol] 3.8 g/dL Normal 3.2-5.0 [facility] Comment on above: Performed By: #### L 500.2500, L500.3400, L500.4100, L503.6620, L501.9520 #### [facility] [address] [place], [address] ALK P 87 U/L Normal 45-117 [facility] Comment on above: Performed By: #### L 500.2500, L500.3400, L500.4100, L503.6620, L501.9520 #### [facility] [address] [place], [address] ALT [Catalytic activity/Vol] 25 U/L Normal 16-61 [facility] Comment on above: Performed By: #### L 500.2500, L500.3400, L500.4100, L503.6620, L501.9520 #### [facility] [address] [place], [address] AST [Catalytic activity/Vol] 14 U/L Low 15-37 [facility] Comment on above: Performed By: #### L 500.2500, L500.3400, L500.4100, L503.6620, L501.9520 #### [facility] [address] [place], [address] Bilirubin [Mass/Vol] 0.60 mg/dL Normal 0.20-1.00 [facility] Comment on above: Result Comment: For patients on eltrombopag therapy, use of Dimension [place] TBIL is not recommended. Performed By: #### L 500.2500, L500.3400, L500.4100, L503.6620, L501.9520 #### [facility] [address] [place], [address] Bilirubin.direct [Mass/Vol] 0.20 mg/dL Normal 0.00-0.30 [facility] Comment on above: Performed By: #### L 500.2500, L500.3400, L500.4100, L503.6620, L501.9520 #### [facility] [address] [place], [address] Globulin (S) [Mass/Vol] 3.6 g/dL Normal 2.2-4.2 [facility] Comment on above: Performed By: #### L 500.2500, L500.3400, L500.4100, L503.6620, L501.9520 #### [facility] [address] [place], [address] T PROT 7.4 g/dL Normal 6.4-8.2 [facility] Comment on above: Performed By: #### L 500.2500, L500.3400, L500.4100, L503.6620, L501.9520 #### [facility] [address] [place], [address] Thyroid Stim Hormone (TSH)on 03-09-2024 TSH 0.717 uIU/mL Normal 0.358-3.740 [facility] Comment on above: Performed By: #### L 500.2500, L500.3400, L500.4100, L503.6620, L501.9520 #### [facility] [address] [place], [address] Basophil percentageOrdered B y: Avni Walker on 09-17-2023 Chloride [Moles/Vol] 108 mmol/L 98-107 [facility] Glucose [Mass/Vol] 95 mg/dL 74-106 [facility] Potassium [Moles/Vol] 4.3 mmol/L 3.5-5.1 [facility] Sodium [Moles/Vol] 140 mmol/L 136-145 [facility] Laboratory - Chemistry and C hemistry - challengeOrdered By: Avni Walker on 09-17-2023 CO2 [Moles/Vol] 27.0 mmol/L 21.0-32.0 [facility] Urea nitrogen/Creatinine [Mass ratio] 33.6 mg/mg 10-20 [facility] No Panel InformationOrdered By: Avni Walker on 09-17-2023 Estimated GFR (MDRD) Amer 137 mL/min >60 [facility] Comment on above: GFR Calc Estimated GFR (MDRD) Non-Af Amer 113 mL/min >60 [facility] Comment on above: Non- GFR Calc Serum or plasma calcium brittnee urement (mass/volume)Ordered By: Avni Walker on 09-17-2023 Calcium [Mass/Vol] 9.1 mg/dL 8.5-10.1 [facility] Serum or plasma creatinine m easurement (mass/volume)Ordered By: Avni Walker on 09-17-2023 Creatinine [Mass/Vol] 0.71 mg/dL 0.70-1.30 [facility] Comment on above: The validity of the calculated GFR & GFRAA in patients over 70 years has not been determined. Clinical correlation is essential. Serum or plasma urea nitroge n measurement (mass/volume)Ordered By: Avni Walker on 09-17-2023 Urea nitrogen [Mass/Vol] 24 mg/dL 7-18 [facility] Thin prep Papanicolaou smear with manual screeningOrdered By: Avni Walker on 09-17-2023 Thin prep Papanicolaou smear with manual screening 5 5-15 [facility] Absolute lymphocyte countOrd ered By: Avni Walker on 09-09-2023 Lymphocytes Auto (Unsp spec) [#/Vol] 1.41 10*3/uL 0.83-4.51 [facility] Automated lymphocyte count a s percentage of total leukocytesOrdered By: Avni Walker on 09-09-2023 Lymphocytes/100 WBC Auto (Unsp spec) 24.4 % 19-41 [facility] Basophil percentageOrdered B y: Avni Walker on 09-09-2023 Basophils/100 WBC (Bld) 0.3 % 0-1 [facility] Bilirubin [Mass/Vol] 0.60 mg/dL 0.20-1.00 [facility] Comment on above: For patients on eltr ombopag therapy, use of Dimension [place] TBIL is not recommended. Chloride [Moles/Vol] 103 mmol/L 98-107 [facility] Eosinophils/100 WBC (Bld) 3.3 % 0-5 [facility] Glucose [Mass/Vol] 135 mg/dL 74-106 [facility] Comment on above: Fasting Glucose resu lt greater than or equal to 126 mg/dL suggests DIABETES MELLITUS per A.D.A. criteria. Hemoglobin (Bld) [Mass/Vol] 12.8 g/dL 13.0-16.5 [facility] Monocytes/100 WBC (Bld) 15.0 % 0-10 [facility] Neutrophils (Bld) [#/Vol] 3.3 10*3/uL 2.0-7.7 [facility] Neutrophils/100 WBC (Bld) 56.3 % 47-70 [facility] Potassium [Moles/Vol] 3.3 mmol/L 3.5-5.1 [facility] Protein [Mass/Vol] 7.4 g/dL 6.4-8.2 [facility] Sodium [Moles/Vol] 138 mmol/L 136-145 [facility] WBC (Bld) [#/Vol] 5.8 10*3/uL 4.4-11.0 [facility] Determination of erythrocyte mean corpuscular volume (MCV)Ordered By: Avni Walker on 09-09-2023 MCV (RBC) [Entitic vol] 101.0 fL 80-94 [facility] Erythrocyte distribution wid th ratioOrdered By: Avni Walker on 09-09-2023 Erythrocyte distribution width (RBC) [Ratio] 13.9 % 11.6-14.6 [facility] Erythrocyte distribution wid th standard deviationOrdered By: Avni Walker on 09-09-2023 Erythrocyte distribution width (RBC) [Entitic vol] 51.6 fL 35.1-43.9 [facility] Hematocrit Auto (Bld) [Volum e fraction]Ordered By: Avni Walker on 09-09-2023 Hematocrit (Bld) [Volume fraction] 40.1 % 40-54 [facility] Immature granulocytes/100 WB C Auto (Bld)Ordered By: Avni Walker on 09-09-2023 Immature granulocytes/100 WBC (Bld) 0.700 % 0.0-0.9 [facility] Comment on above: IG% - Immature Granu locytes (promyelocytes, myelocytes and metamyelocytes) > 1% indicates that a LEFT SHIFT is Present. Laboratory - Chemistry and C hemistry - challengeOrdered By: Avni Walker on 09-09-2023 Albumin/Globulin [Mass ratio] 1.0 {ratio} 0.9-2.4 [facility] ALP [Catalytic activity/Vol] 75 U/L 45-117 [facility] ALT [Catalytic activity/Vol] 24 U/L 16-61 [facility] CO2 [Moles/Vol] 29.0 mmol/L 21.0-32.0 [facility] Globulin (S) [Mass/Vol] 3.7 g/dL 2.2-4.2 [facility] Urea nitrogen/Creatinine [Mass ratio] 22.3 mg/mg 10-20 [facility] - Hematology and Cell countsOrdered By: Avni Walker 09-09-2023 MCH (RBC) [Entitic mass] 32.2 pg 27.0-32.0 [facility] MCHC (RBC) [Mass/Vol] 31.9 g/dL 32-36 [facility] Nucleated RBC/100 WBC (Bld) [Ratio] 0 % 0-5 [facility] Platelet mean volume (Bld) [Entitic vol] 12.8 fL 6.2-12.0 [facility] Platelets (Bld) [#/Vol] 135 10*3/uL 150-450 [facility] No Panel InformationOrdered By: Avni Walker on 09-09-2023 Estimated GFR (MDRD) Amer 105 mL/min >60 [facility] Comment on above: GFR Calc Estimated GFR (MDRD) Non-Af Amer 87 mL/min >60 [facility] Comment on above: Non- GFR Calc Vitamin D 25-Hydroxy 76.0 ng/mL [facility] Comment on above: Vitamin D 25(OH) Sta tus Range Deficiency <20 ng/mL (50nmol/L) Insufficiency 20 - 30 ng/mL (50 - 75 nmol/L) Sufficiency 30 - 100 ng/mL (75 - 250 nmol/L) Toxicity >100 ng/mL (>250 nmol/L) RBC Auto (Bld) [#/Vol]Ordere d By: Avni Walker on 09-09-2023 RBC (Bld) [#/Vol] 3.97 10*6/uL 4.6-6.2 [facility] Serum or plasma calcium brittnee urement (mass/volume)Ordered By: Avni Walker on 09-09-2023 Calcium [Mass/Vol] 9.0 mg/dL 8.5-10.1 [facility] Serum or plasma creatinine m easurement (mass/volume)Ordered By: Avni Walker on 09-09-2023 Creatinine [Mass/Vol] 0.90 mg/dL 0.70-1.30 [facility] Comment on above: The validity of the calculated GFR & GFRAA in patients over 70 years has not been determined. Clinical correlation is essential. Serum or plasma thyroid stim ulating hormone (TSH) measurement (units/volume)Ordered By: Avni Walker 09-09-2023 TSH Qn 0.63 uIU/mL 0.358-3.74 [facility] Serum or plasma urea nitroge n measurement (mass/volume)Ordered By: Avni Walker 09-09-2023 Urea nitrogen [Mass/Vol] 20 mg/dL 7-18 [facility] Serum or plasma uric acid me asurement (mass/volume)Ordered By: Avni Walker 09-09-2023 Urate [Mass/Vol] 5.2 mg/dL 3.5-7.2 [facility] Comment on above: The drugs N-Acetylcy steine and Metamizole may falsely depress this assay. Thin prep Papanicolaou smear with manual screeningOrdered By: Avni Walker on 09-09-2023 Thin prep Papanicolaou smear with manual screening 3.7 g/dL 3.2-5.0 [facility] Thin prep Papanicolaou smear with manual screening 14 U/L 15-37 [facility] Thin prep Papanicolaou smear with manual screening 6 5-15 [facility] Absolute lymphocyte countOrd ered By: Khanh Doran on 03-13-2023 Lymphocytes Auto (Unsp spec) [#/Vol] 1.72 10*3/uL 0.83-4.51 [facility] Basophil percentageOrdered B y: Khanh Doran on 03-13-2023 Basophils/100 WBC (Bld) 0.2 % 0-1 [facility] Bilirubin [Mass/Vol] 0.50 mg/dL 0.20-1.00 [facility] Comment on above: For patients on eltr ombopag therapy, use of Dimension [place] TBIL is not recommended. Chloride [Moles/Vol] 103 mmol/L 98-107 [facility] Eosinophils/100 WBC (Bld) 3.3 % 0-5 [facility] Glucose [Mass/Vol] 130 mg/dL 74-106 [facility] Comment on above: Fasting Glucose resu lt greater than or equal to 126 mg/dL suggests DIABETES MELLITUS per A.D.A. criteria. Neutrophils (Bld) [#/Vol] 5.8 10*3/uL 2.0-7.7 [facility] Neutrophils/100 WBC (Bld) 67.9 % 47-70 [facility] Potassium [Moles/Vol] 3.9 mmol/L 3.5-5.1 [facility] Protein [Mass/Vol] 7.4 g/dL 6.4-8.2 [facility] Sodium [Moles/Vol] 138 mmol/L 136-145 [facility] WBC (Bld) [#/Vol] 8.6 10*3/uL 4.4-11.0 [facility] Blood erythrocytes count (nu mber/volume)Ordered By: Khanh Doran on 03-13-2023 RBC (Bld) [#/Vol] 3.87 10*6/uL 4.6-6.2 [facility] Blood hemoglobin measurement (mass/volume)Ordered By: Khanh Doran on 03-13-2023 Hemoglobin (Bld) [Mass/Vol] 12.7 g/dL 13.0-16.5 [facility] Blood lymphocytes/100 leukoc ytesOrdered By: Khanh Doran on 03-13-2023 Lymphocytes/100 WBC (Bld) 20.0 % 19-41 [facility] Blood monocytes/100 leukocyt esOrdered By: Khanh Doran on 03-13-2023 Monocytes/100 WBC (Bld) 8.3 % 0-10 [facility] Blood platelet mean volumeOr dered By: Khanh Doran on 03-13-2023 Platelet mean volume (Bld) [Entitic vol] 12.7 fL 6.2-12.0 [facility] Determination of erythrocyte mean corpuscular volume (MCV)Ordered By: Khanh Doran on 03-13-2023 MCV (RBC) [Entitic vol] 102.8 fL 80-94 [facility] Hematocrit Auto (Bld) [Volum e fraction]Ordered By: Khanh Doran on 03-13-2023 Hematocrit (Bld) [Volume fraction] 39.8 % 40-54 [facility] Laboratory - Chemistry and C hemistry - challengeOrdered By: Khanh Doran on 03-13-2023 ALP [Catalytic activity/Vol] 82 U/L 45-117 [facility] ALT [Catalytic activity/Vol] 27 U/L 16-61 [facility] CO2 [Moles/Vol] 26.0 mmol/L 21.0-32.0 [facility] Globulin (S) [Mass/Vol] 3.7 g/dL 2.2-4.2 [facility] Urea nitrogen/Creatinine [Mass ratio] 22.4 mg/mg 10-20 [facility] Laboratory - Hematology and Cell countsOrdered By: Khanh Doran on 03-13-2023 Erythrocyte distribution width (RBC) [Entitic vol] 52.4 fL 35.1-43.9 [facility] Erythrocyte distribution width (RBC) [Ratio] 13.7 % 11.6-14.6 [facility] Immature granulocytes/100 WBC (Bld) 0.300 % 0.0-0.9 [facility] Comment on above: IG% - Immature Granu locytes (promyelocytes, myelocytes and metamyelocytes) > 1% indicates that a LEFT SHIFT is Present. MCH (RBC) [Entitic mass] 32.8 pg 27.0-32.0 [facility] Nucleated RBC/100 WBC (Bld) [Ratio] 0 % 0-5 [facility] MCHC Auto (RBC) [Mass/Vol]Or dered By: Khanh Doran on 03-13-2023 MCHC (RBC) [Mass/Vol] 31.9 g/dL 32-36 [facility] No Panel InformationOrdered By: Khanh Doran on 03-13-2023 Estimated GFR (MDRD) Amer 95 mL/min >60 [facility] Comment on above: GFR Calc Estimated GFR (MDRD) Non-Af Amer 78 mL/min >60 [facility] Comment on above: Non- GFR Calc Thyroid Stimulating Hormone (TSH) 0.99 uIU/mL 0.358-3.74 [facility] Vitamin D 25-Hydroxy 61.3 ng/mL [facility] [place] Comment on above: Vitamin D 25(OH) Sta tus Range Deficiency <20 ng/mL (50nmol/L) Insufficiency 20 - 30 ng/mL (50 - 75 nmol/L) Sufficiency 30 - 100 ng/mL (75 - 250 nmol/L) Toxicity >100 ng/mL (>250 nmol/L) Platelets bldOrdered By: Claribel Doran on 03-13-2023 Platelets (Bld) [#/Vol] 163 10*3/uL 150-450 [facility] Serum or plasma albumin brittnee urement (mass/volume)Ordered By: Khanh Doran on 03-13-2023 Albumin [Mass/Vol] 3.7 g/dL 3.2-5.0 [facility] Serum or plasma albumin/glob ulin mass ratioOrdered By: Khanh Doran on 03-13-2023 Albumin/Globulin [Mass ratio] 1.0 {ratio} 0.9-2.4 [facility] Serum or plasma calcium brittnee urement (mass/volume)Ordered By: Khanh Doran on 03-13-2023 Calcium [Mass/Vol] 8.8 mg/dL 8.5-10.1 [facility] Serum or plasma creatinine m easurement (mass/volume)Ordered By: Khanh Doran on 03-13-2023 Creatinine [Mass/Vol] 0.98 mg/dL 0.70-1.30 [facility] Comment on above: The validity of the calculated GFR & GFRAA in patients over 70 years has not been determined. Clinical correlation is essential. Serum or plasma urea nitroge n measurement (mass/volume)Ordered By: Khanh Doran on 03-13-2023 Urea nitrogen [Mass/Vol] 22 mg/dL 7-18 [facility] Serum or plasma uric acid me asurement (mass/volume)Ordered By: Khanh Doran on 03-13-2023 Urate [Mass/Vol] 4.7 mg/dL 3.5-7.2 [facility] Comment on above: The drugs N-Acetylcy steine and Metamizole may falsely depress this assay. Thin prep Papanicolaou smear with manual screeningOrdered By: Khanh Doran on 03-13-2023 Thin prep Papanicolaou smear with manual screening 13 U/L 15-37 [facility] Thin prep Papanicolaou smear with manual screening 9 5-15 [facility] Absolute lymphocyte countOrd ered By: Dr. Walker on 09-04-2022 Lymphocytes Auto (Unsp spec) [#/Vol] 1.42 10*3/uL 0.83-4.51 [facility] Basophil percentageOrdered B y: Dr. Walker on 09-04-2022 Chloride [Moles/Vol] 106 mmol/L 98-107 [facility] Glucose [Mass/Vol] 120 mg/dL 74-106 [facility] Comment on above: Fasting Glucose resu lt from 100 to 125 mg/dL suggests IMPAIRED HOMEOSTASIS per A.D.A. criteria. Potassium [Moles/Vol] 3.5 mmol/L 3.5-5.1 [facility] Sodium [Moles/Vol] 138 mmol/L 136-145 [facility] Basophils/100 WBC (Bld) 0.2 % 0-1 [facility] Bilirubin [Mass/Vol] 0.40 mg/dL 0.20-1.00 [facility] Comment on above: For patients on eltr ombopag therapy, use of Dimension [place] TBIL is not recommended. Eosinophils/100 WBC (Bld) 2.5 % 0-5 [facility] Neutrophils (Bld) [#/Vol] 6.4 10*3/uL 2.0-7.7 [facility] Neutrophils/100 WBC (Bld) 70.5 % 47-70 [facility] Protein [Mass/Vol] 7.0 g/dL 6.4-8.2 [facility] WBC (Bld) [#/Vol] 9.1 10*3/uL 4.4-11.0 [facility] Blood erythrocytes count (nu mber/volume)Ordered By: Dr. Walker on 09-04-2022 RBC (Bld) [#/Vol] 3.78 10*6/uL 4.6-6.2 [facility] Blood hemoglobin measurement (mass/volume)Ordered By: Dr. Walker on 09-04-2022 Hemoglobin (Bld) [Mass/Vol] 12.6 g/dL 13.0-16.5 [facility] Blood lymphocytes/100 leukoc ytesOrdered By: Dr. Walker on 09-04-2022 Lymphocytes/100 WBC (Bld) 15.7 % 19-41 [facility] Blood monocytes/100 leukocyt esOrdered By: Dr. Walker on 09-04-2022 Monocytes/100 WBC (Bld) 10.8 % 0-10 [facility] Blood platelet mean volumeOr dered By: Dr. Walker on 09-04-2022 Platelet mean volume (Bld) [Entitic vol] 12.5 fL 6.2-12.0 [facility] Determination of erythrocyte mean corpuscular volume (MCV)Ordered By: Dr. Walker on 09-04-2022 MCV (RBC) [Entitic vol] 102.4 fL 80-94 [facility] Hematocrit Auto (Bld) [Volum e fraction]Ordered By: Dr. Walker on 09-04-2022 Hematocrit (Bld) [Volume fraction] 38.7 % 40-54 [facility] Laboratory - Chemistry and C hemistry - challengeOrdered By: Dr. Walker on 09-04-2022 CO2 [Moles/Vol] 27.0 mmol/L 21.0-32.0 [facility] Urea nitrogen/Creatinine [Mass ratio] 29.2 mg/mg 10-20 [facility] ALP [Catalytic activity/Vol] 92 U/L 45-117 [facility] ALT [Catalytic activity/Vol] 30 U/L 16-61 [facility] Globulin (S) [Mass/Vol] 3.3 g/dL 2.2-4.2 [facility] Laboratory - Hematology and Cell countsOrdered By: Dr. Walker on 09-04-2022 Erythrocyte distribution width (RBC) [Entitic vol] 51.6 fL 35.1-43.9 [facility] Erythrocyte distribution width (RBC) [Ratio] 13.5 % 11.6-14.6 [facility] Immature granulocytes/100 WBC (Bld) 0.300 % 0.0-0.9 [facility] Comment on above: IG% - Immature Granu locytes (promyelocytes, myelocytes and metamyelocytes) > 1% indicates that a LEFT SHIFT is Present. MCH (RBC) [Entitic mass] 33.3 pg 27.0-32.0 [facility] Nucleated RBC/100 WBC (Bld) [Ratio] 0 % 0-5 [facility] MCHC Auto (RBC) [Mass/Vol]Or dered By: Dr. Walker on 09-04-2022 MCHC (RBC) [Mass/Vol] 32.6 g/dL 32-36 [facility] No Panel InformationOrdered By: Dr. Walker on 09-04-2022 Estimated GFR (MDRD) Amer 102 mL/min >60 [facility] Comment on above: GFR Calc Estimated GFR (MDRD) Non-Af Amer 84 mL/min >60 [facility] Comment on above: Non- GFR Calc Thyroid Stimulating Hormone (TSH) 0.87 uIU/mL 0.358-3.74 [facility] Vitamin D 25-Hydroxy 71.4 ng/mL [facility] Comment on above: Vitamin D 25(OH) Sta tus Range Deficiency <20 ng/mL (50nmol/L) Insufficiency 20 - 30 ng/mL (50 - 75 nmol/L) Sufficiency 30 - 100 ng/mL (75 - 250 nmol/L) Toxicity >100 ng/mL (>250 nmol/L) Platelets bldOrdered By: Dr. Walker on 09-04-2022 Platelets (Bld) [#/Vol] 155 10*3/uL 150-450 [facility] Serum or plasma albumin brittnee urement (mass/volume)Ordered By: Dr. Walker on 09-04-2022 Albumin [Mass/Vol] 3.7 g/dL 3.2-5.0 [facility] Serum or plasma albumin/glob ulin mass ratioOrdered By: Dr. Walker on 09-04-2022 Albumin/Globulin [Mass ratio] 1.1 {ratio} 0.9-2.4 [facility] Serum or plasma calcium brittnee urement (mass/volume)Ordered By: Dr. Walker on 09-04-2022 Calcium [Mass/Vol] 9.2 mg/dL 8.5-10.1 [facility] Serum or plasma creatinine m easurement (mass/volume)Ordered By: Dr. Walker on 09-04-2022 Creatinine [Mass/Vol] 0.93 mg/dL 0.70-1.30 [facility] Comment on above: The validity of the calculated GFR & GFRAA in patients over 70 years has not been determined. Clinical correlation is essential. Serum or plasma urea nitroge n measurement (mass/volume)Ordered By: Dr. Walker on 09-04-2022 Urea nitrogen [Mass/Vol] 27 mg/dL 7-18 [facility] Serum or plasma uric acid me asurement (mass/volume)Ordered By: Dr. Walker on 09-04-2022 Urate [Mass/Vol] 4.5 mg/dL 3.5-7.2 [facility] Comment on above: The drugs N-Acetylcy steine and Metamizole may falsely depress this assay. Thin prep Papanicolaou smear with manual screeningOrdered By: Dr. Walker on 09-04-2022 Thin prep Papanicolaou smear with manual screening 5 5-15 [facility] Thin prep Papanicolaou smear with manual screening 20 U/L 15-37 [facility] No Panel InformationOrdered By: Dr. Corea on 07-10-2022 Prostate Specific Antigen Total 3.54 ng/mL 0.0-4.0 [facility] Comment on above: This test was perfor med using the TPSA assay method for [employer] chemistry system. Values obtained with differentassay methods cannot be used interchangably.When changing PSA assays in the course of monitoring apatient, additional sequential testing should be carriedout to confirm baseline values. Absolute lymphocyte counton 03-06-2022 Lymphocytes Auto (Unsp spec) [#/Vol] 1.72 10*3/uL 0.83-4.51 [facility] Work Phone: Basophil percentageon 2021 Basophils/100 WBC (Bld) 0.3 % 0-1 [facility] Work Phone: Bilirubin [Mass/Vol] 0.50 mg/dL 0.20-1.00 [facility] Work Phone: Comment on above: For patients on eltr ombopag therapy, use of Dimension [place] TBIL is not recommended. Chloride [Moles/Vol] 109 mmol/L 98-107 [facility] Work Phone: Eosinophils/100 WBC (Bld) 4.1 % 0-5 [facility] Work Phone: Glucose [Mass/Vol] 83 mg/dL 74-106 [facility] Work Phone: Neutrophils (Bld) [#/Vol] 5.7 10*3/uL 2.0-7.7 [facility] Work Phone: Neutrophils/100 WBC (Bld) 65.7 % 47-70 [facility] Work Phone: Potassium [Moles/Vol] 3.8 mmol/L 3.5-5.1 [facility] Work Phone: Protein [Mass/Vol] 7.3 g/dL 6.4-8.2 [facility] Work Phone: Sodium [Moles/Vol] 144 mmol/L 136-145 [facility] Work Phone: WBC (Bld) [#/Vol] 8.7 10*3/uL 4.4-11.0 [facility] Work Phone: Blood erythrocytes count (nu mber/volume)on 03-06-2022 RBC (Bld) [#/Vol] 3.96 10*6/uL 4.6-6.2 [facility]: Blood hemoglobin measurement (mass/volume)on 03-06-2022 Hemoglobin (Bld) [Mass/Vol] 13.0 g/dL 13.0-16.5 [facility] Work Phone: Blood lymphocytes/100 leukoc yteson 03-06-2022 Lymphocytes/100 WBC (Bld) 19.8 % 19-41 [facility] Work Phone: Blood monocytes/100 leukocyt eson 03-06-2022 Monocytes/100 WBC (Bld) 9.8 % 0-10 [facility] Work Phone: Blood platelet mean volumeon 03-06-2022 Platelet mean volume (Bld) [Entitic vol] 13.4 fL 6.2-12.0 [facility] Work Phone: Determination of erythrocyte mean corpuscular volume (MCV)on 03-06-2022 MCV (RBC) [Entitic vol] 102.5 fL 80-94 [facility] Work Phone: Hematocrit Auto (Bld) [Volum e fraction]on 03-06-2022 Hematocrit (Bld) [Volume fraction] 40.6 % 40-54 [facility] Work Phone: Laboratory - Chemistry and C hemistry - challengeon 03-06-2022 ALP [Catalytic activity/Vol] 93 U/L 45-117 [facility] Work Phone: ALT [Catalytic activity/Vol] 26 U/L 16-61 [facility] Work Phone: CO2 [Moles/Vol] 29.0 mmol/L 21.0-32.0 [facility] Work Phone: Globulin (S) [Mass/Vol] 3.5 g/dL 2.2-4.2 [facility] Work Phone: [phone] Urea nitrogen/Creatinine [Mass ratio] 26.7 mg/mg 10-20 [facility] Work Phone: [phone] Laboratory - Hematology and Cell countson 03-06-2022 Erythrocyte distribution width (RBC) [Entitic vol] 53.2 fL 35.1-43.9 [facility] Work Phone: [phone] Erythrocyte distribution width (RBC) [Ratio] 13.9 % 11.6-14.6 [facility] Work Phone: [phone] Immature granulocytes/100 WBC (Bld) 0.300 % 0.0-0.9 [facility] Work Phone: [phone] Comment on above: IG% - Immature Granu locytes (promyelocytes, myelocytes and metamyelocytes) > 1% indicates that a LEFT SHIFT is Present. MCH (RBC) [Entitic mass] 32.8 pg 27.0-32.0 [facility] Work Phone: [phone] Nucleated RBC/100 WBC (Bld) [Ratio] 0 % 0-5 [facility] Work Phone: [phone] MCHC Auto (RBC) [Mass/Vol]on 03-06-2022 MCHC (RBC) [Mass/Vol] 32.0 g/dL 32-36 [facility] Work Phone: [phone] No Panel Informationon 03-06 Estimated GFR (MDRD) Amer 92 mL/min >60 [facility] Work Phone: [phone] Comment on above: GFR Calc Estimated GFR (MDRD) Non-Af Amer 76 mL/min >60 [facility] Work Phone: [phone] Comment on above: Non- GFR Calc Thyroid Stimulating Hormone (TSH) 0.76 uIU/mL 0.358-3.74 [facility] Work Phone: [phone] Vitamin D 25-Hydroxy 68.6 ng/mL [facility] Work Phone: [phone] Comment on above: Vitamin D 25(OH) Sta tus Range Deficiency <20 ng/mL (50nmol/L) Insufficiency 20 - 30 ng/mL (50 - 75 nmol/L) Sufficiency 30 - 100 ng/mL (75 - 250 nmol/L) Toxicity >100 ng/mL (>250 nmol/L) Platelets bldon 03-06-2022 Platelets (Bld) [#/Vol] 182 10*3/uL 150-450 [facility] Work Phone: Serum or plasma albumin brittnee urement (mass/volume)on 03-06-2022 Albumin [Mass/Vol] 3.8 g/dL 3.2-5.0 [facility] Work Phone: Serum or plasma albumin/glob ulin mass ratioon 03-06-2022 Albumin/Globulin [Mass ratio] 1.1 {ratio} 0.9-2.4 [facility] Work Phone: Serum or plasma calcium brittnee urement (mass/volume)on 03-06-2022 Calcium [Mass/Vol] 9.1 mg/dL 8.5-10.1 [facility] Work Phone: Serum or plasma creatinine m easurement (mass/volume)on 03-06-2022 Creatinine [Mass/Vol] 1.01 mg/dL 0.70-1.30 [facility] Work Phone: Comment on above: The validity of the calculated GFR & GFRAA in patients over 70 years has not been determined. Clinical correlation is essential. Serum or plasma urea nitroge n measurement (mass/volume)on 03-06-2022 Urea nitrogen [Mass/Vol] 27 mg/dL 7-18 [facility] Work Phone: Serum or plasma uric acid me asurement (mass/volume)on 03-06-2022 Urate [Mass/Vol] 4.3 mg/dL 3.5-7.2 [facility] Work Phone: Comment on above: The drugs N-Acetylcy steine and Metamizole may falsely depress this assay. Thin prep Papanicolaou smear with manual screeningon 03-06-2022 Thin prep Papanicolaou smear with manual screening 14 U/L 15-37 [facility] Work Phone: Thin prep Papanicolaou smear with manual screening 6 5-15 [facility] Work Phone: [phone] Laboratory - Microbiology an d Antimicrobial susceptibilityon 01-07-2022 SARS-CoV-2 (COVID-19) RNA PADDY+probe Ql (Unsp spec) Detected Not Detect [facility] Work Phone: [phone] Comment on above: Normal Reference Ran ge: Not DetectedMethod:(RT-PCR) real-time reverse transcriptase PCRLuminex MALLORY Instrument*The Food and Drug Administration (FDA) has issued an Emergency Use Authorization (EAU) for the [employer] SARS-CoV-2 Assay for the rapid detection of [...] Auto (Unsp spec) [#/Vol] 1.76 10*3/uL 0.83-4.51 [facility] Work Phone: [phone] Basophil percentageon 2021 Basophils/100 WBC (Bld) 0.2 % 0-1 [facility] Work Phone: [phone] Bilirubin [Mass/Vol] 0.50 mg/dL 0.20-1.00 [facility] Work Phone: [phone] Comment on above: For patients on eltr ombopag therapy, use of Dimension [place] TBIL is not recommended. Chloride [Moles/Vol] 104 mmol/L 98-107 [facility] Work Phone: [phone] Eosinophils/100 WBC (Bld) 4.0 % 0-5 [facility] Work Phone: Glucose [Mass/Vol] 95 mg/dL 74-106 [facility] Work Phone: Neutrophils (Bld) [#/Vol] 6.2 10*3/uL 2.0-7.7 [facility] Work Phone: [phone] Neutrophils/100 WBC (Bld) 66.8 % 47-70 [facility] Work Phone: [phone] Potassium [Moles/Vol] 4.3 mmol/L 3.5-5.1 [facility] Work Phone: [phone] Protein [Mass/Vol] 7.6 g/dL 6.4-8.2 [facility] Work Phone: [phone] Sodium [Moles/Vol] 141 mmol/L 136-145 [facility] Work Phone: [phone] WBC (Bld) [#/Vol] 9.2 10*3/uL 4.4-11.0 [facility] Work Phone: [phone] Blood erythrocytes count (nu mber/volume)on 09-05-2021 RBC (Bld) [#/Vol] 3.79 10*6/uL 4.6-6.2 [facility] Work Phone: [phone] Blood hemoglobin measurement (mass/volume)on 09-05-2021 Hemoglobin (Bld) [Mass/Vol] 12.4 g/dL 13.0-16.5 [facility] Work Phone: [phone] Blood lymphocytes/100 leukoc yteson 09-05-2021 Lymphocytes/100 WBC (Bld) 19.1 % 19-41 [facility] Work Phone: [phone] Blood monocytes/100 leukocyt eson 09-05-2021 Monocytes/100 WBC (Bld) 9.5 % 0-10 [facility] Work Phone: Blood platelet mean volumeon 09-05-2021 Platelet mean volume (Bld) [Entitic vol] 13.0 fL 6.2-12.0 [facility] Work Phone: Determination of erythrocyte mean corpuscular volume (MCV)on 09-05-2021 MCV (RBC) [Entitic vol] 101.6 fL 80-94 [facility] Work Phone: [phone] Hematocrit Auto (Bld) [Volum e fraction]on 09-05-2021 Hematocrit (Bld) [Volume fraction] 38.5 % 40-54 [facility] Work Phone: [phone] Laboratory - Chemistry and C hemistry - challengeon 09-05-2021 ALP [Catalytic activity/Vol] 95 U/L 45-117 [facility] Work Phone: [phone] ALT [Catalytic activity/Vol] 29 U/L 16-61 [facility] Work Phone: [phone] CO2 [Moles/Vol] 30.0 mmol/L 21.0-32.0 [facility] Work Phone: [phone] Globulin (S) [Mass/Vol] 3.8 g/dL 2.2-4.2 [facility] Work Phone: [phone] Urea nitrogen/Creatinine [Mass ratio] 33.8 mg/mg - [facility] Work Phone: [phone] Laboratory - Hematology and Cell countson 09-05-2021 Erythrocyte distribution width (RBC) [Entitic vol] 51.9 fL 35.1-43.9 [facility] Work Phone: [phone] Erythrocyte distribution width (RBC) [Ratio] 13.9 % 11.6-14.6 [facility] Work Phone: [phone] Immature granulocytes/100 WBC (Bld) 0.400 % 0.0-0.9 [facility] Work Phone: [phone] Comment on above: IG% - Immature Granu locytes (promyelocytes, myelocytes and metamyelocytes) > 1% indicates that a LEFT SHIFT is Present. MCH (RBC) [Entitic mass] 32.7 pg 27.0-32.0 [facility] Work Phone: Nucleated RBC/100 WBC (Bld) [Ratio] 0 % 0-5 [facility] Work Phone: [phone] MCHC Auto (RBC) [Mass/Vol]on 09-05-2021 MCHC (RBC) [Mass/Vol] 32.2 g/dL 32-36 [facility] Work Phone: No Panel Informationon 09-05 Estimated GFR (MDRD) Amer 99 mL/min >60 [facility] Work Phone: Comment on above: GFR Calc Estimated GFR (MDRD) Non-Af Amer 82 mL/min >60 [facility] Work Phone: [phone] Comment on above: Non- GFR Calc Thyroid Stimulating Hormone (TSH) 1.01 uIU/mL 0.358-3.74 [facility] Work Phone: [phone] Vitamin D 25-Hydroxy 56.0 ng/mL [facility] Work Phone: Comment on above: Vitamin D 25(OH) Sta tus Range Deficiency <20 ng/mL (50nmol/L) Insufficiency 20 - 30 ng/mL (50 - 75 nmol/L) Sufficiency 30 - 100 ng/mL (75 - 250 nmol/L) Toxicity >100 ng/mL (>250 nmol/L) Platelets bldon 09-05-2021 Platelets (Bld) [#/Vol] 194 10*3/uL 150-450 [facility] Work Phone: [phone] Serum or plasma albumin brittnee urement (mass/volume)on 09-05-2021 Albumin [Mass/Vol] 3.8 g/dL 3.2-5.0 [facility] Work Phone: [phone] Serum or plasma albumin/glob ulin mass ratioon 09-05-2021 Albumin/Globulin [Mass ratio] 1.0 {ratio} 0.9-2.4 [facility] Work Phone: [phone] Serum or plasma calcium brittnee urement (mass/volume)on 09-05-2021 Calcium [Mass/Vol] 8.6 mg/dL 8.5-10.1 [facility] Work Phone: [phone] Serum or plasma creatinine m easurement (mass/volume)on 09-05-2021 Creatinine [Mass/Vol] 0.95 mg/dL 0.70-1.30 [facility] Work Phone: Comment on above: The validity of the calculated GFR & GFRAA in patients over 70 years has not been determined. Clinical correlation is essential. Serum or plasma urea nitroge n measurement (mass/volume)on 09-05-2021 Urea nitrogen [Mass/Vol] 32 mg/dL 7-18 [facility] Work Phone: Serum or plasma uric acid me asurement (mass/volume)on 09-05-2021 Urate [Mass/Vol] 5.1 mg/dL 3.5-7.2 [facility] Work Phone: Comment on above: The drugs N-Acetylcy steine and Metamizole may falsely depress this assay. Thin prep Papanicolaou smear with manual screeningon 09-05-2021 Thin prep Papanicolaou smear with manual screening 15 U/L 15-37 [facility] Work Phone: Thin prep Papanicolaou smear with manual screening 7 5-15 [facility] Work Phone: No Panel Informationon 07-04 Prostate Specific Antigen Total 3.94 ng/mL 0.0-4.0 [facility] Work Phone: Comment on above: This test was perfor med using the TPSA assay method [facility]. Values obtained with differentassay methods cannot be used interchangably.When changing PSA assays in the course of monitoring apatient, additional sequential testing should be carriedout to confirm baseline values. Basophil percentageon 2021 Bilirubin [Mass/Vol] 0.50 mg/dL 0.20-1.00 [facility] Work Phone: Comment on above: For patients on eltr ombopag therapy, use of Dimension [place] TBIL is not recommended. Cholesterol [Mass/Vol] 158 mg/dL <200 [facility] Work Phone: Comment on above: <200 mg/dL Desirable 200-240 mg/dL Borderline >240 mg/dL High Risk Protein [Mass/Vol] 7.9 g/dL 6.4-8.2 [facility] Work Phone: [phone] Triglyceride [Mass/Vol] 128 mg/dL [facility] Work Phone: [phone] Comment on above: The drugs N-Acetylcy steine and Metamizole may falsely depress this assay.Serum Triglycerides Reference Interval Normal <150 mg/dL Borderline high 150 - 199 mg/dL High 200 - 499 mg/dL Very High > or = 500 mg/dL Direct bilirubinon Bilirubin.direct [Mass/Vol] 0.17 mg/dL 0.00-0.30 [facility] Work Phone: [phone] Laboratory - Chemistry and C hemistry - challengeon 06-26-2021 ALP [Catalytic activity/Vol] 96 U/L 45-117 [facility] Work Phone: [phone] ALT [Catalytic activity/Vol] 25 U/L 16-61 [facility] Work Phone: [phone] Globulin (S) [Mass/Vol] 4.0 g/dL 2.2-4.2 [facility] Work Phone: [phone] Natriuretic peptide B (Bld) [Mass/Vol] 74.6 pg/mL 0-100 [facility] Work Phone: [phone] Serum or plasma albumin brittnee urement (mass/volume)on 06-26-2021 Albumin [Mass/Vol] 3.9 g/dL 3.2-5.0 [facility] Work Phone: [phone] Serum or plasma cholesterol in HDL measurement (mass/volume)on 06-26-2021 Cholesterol in HDL [Mass/Vol] 51 mg/dL [facility] Work Phone: [phone] Comment on above: The drugs N-Acetylcy steine and Metamizole may falsely depress this assay. Reference Range HDL <40 mg/dL Low HDL Cholesterol HDL >or= 60 mg/dL High HDL Cholesterol Serum or plasma cholesterol in VLDL measurement (mass/volume)on 06-26-2021 Cholesterol in VLDL [Mass/Vol] 26 mg/dL 5-40 [facility] Work Phone: [phone] Serum or plasma low density lipoprotein (LDL) cholesterol measurement (mass/volume)on 06-26-2021 Cholesterol in LDL [Mass/Vol] 81 mg/dL 0-130 [facility] Work Phone: Thin prep Papanicolaou smear with manual screeningon 06-26-2021 Thin prep Papanicolaou smear with manual screening 12 U/L 15-37 [facility] Work Phone: CNNURSEon 08-04-2020 CNNURSE Nurse Visit (COVAMD) ANTOINE PEREZ ([id number]) 1945 M Date Time Provider Department 08/04/20 HOWARD HAQ (ALBERTINA) COVAMD During your visit today, we recorded the following information about you: Allergies As of Date: 08/04/2020 Noted Allergy Reaction SULFA (SULFONAMIDE ANTIBIOTICS) 02/06/2012 4 - Hives Comments: childhood Date Reviewed: 10/12/2019 Reviewed by: Jeferson Chirinos Ma - Fully Assessed Order(s):Spare Backup SARS-COV-2 VACCINE 2D DOSE APPT [[id number]] Order #: [id number] Prescriptions as of 08/04/2020 Sig: MELOXICAM 15 [...] total knee arthroplasty, right [Z96.651] 07/21/2019 Encounter Status:[facility] CBC AND ELECTRONIC DIFFon Basophils (Bld) [#/Vol] 10*3/uL Normal 0.00-0.09 O [facility] Comment on above: Performed By: #### L [id number] #### [facility] (DEFAULT) [address] [place] [address] Basophils/100 WBC (Bld) 0.3 % Normal O [facility] Comment on above: Performed By: #### L [id number] #### [facility] (DEFAULT) [address] [place] [address] DIFF STATUS Electronic Differential Normal [facility] Comment on above: Performed By: #### L [id number] #### [facility] (DEFAULT) [address] [place] [address] Eosinophils (Bld) [#/Vol] 0.34 10*3/uL Normal 0.00-0.48 [facility] Comment on above: Performed By: #### L AB980 #### [facility] (DEFAULT) [address] [place] [address] Eosinophils/100 WBC (Bld) 3.8 % Normal [facility] Comment on above: Performed By: #### L AB980 #### [facility] (DEFAULT) [address] [address] Hematocrit (Bld) [Volume fraction] 40.1 % Normal 39.6-48.8 [facility] Comment on above: Performed By: #### L AB980 #### [facility] (DEFAULT) [address] [address] Hemoglobin (Bld) [Mass/Vol] 13.4 g/dL Normal 13.4-16.8 [facility] Comment on above: Performed By: #### L [id number] #### [facility] (DEFAULT) [address] [address] Immature Grans % 0.5 % Normal [facility] Comment on above: Performed By: #### L [id number] #### [facility] (DEFAULT) [address] [address] Immature Grans Absolute 0.04 K/uL Normal <=0.08 O [facility] Comment on above: Performed By: #### L [id number] #### [facility] (DEFAULT) [address] [address] Lymphocytes (Bld) [#/Vol] 1.99 10*3/uL Normal 0.83-3.57 [facility] Comment on above: Performed By: #### L AB980 #### [facility] (DEFAULT) [address] [address] Lymphocytes/100 WBC (Bld) 22.5 % Normal [facility] Comment on above: Performed By: #### L AB980 #### [facility] (DEFAULT) [address] [address] MCV (RBC) [Entitic vol] 97.3 fL High 79.0-94.5 O [facility] Comment on above: Performed By: #### L [id number] #### [facility] (DEFAULT) [address] [address] Mean Cell Hgb 32.5 pg Normal 26.1-33.3 [facility] Comment on above: Performed By: #### L AB980 #### [facility] (DEFAULT) [address] [address] Mean Cell Hgb Conc 33.4 g/dL Normal 31.9-36.5 [facility] Comment on above: Performed By: #### L AB980 #### [facility] (DEFAULT) [address] [place] [address] Monocytes (Bld) [#/Vol] 0.79 10*3/uL Normal 0.24-0.93 [facility] Comment on above: Performed By: #### L AB980 #### [facility] (DEFAULT) [address] [address] Monocytes/100 WBC (Bld) 8.9 % Normal O [facility] Comment on above: Performed By: #### L [id number] #### [facility] (DEFAULT) [address] [address] Nucleated RBC 0.0 /100 WBC Normal <=0.2 [facility] Comment on above: Performed By: #### L [id number] #### U [facility] (DEFAULT) [address] [place] [address] Platelet mean volume (Bld) [Entitic vol] 13.0 fL High 8.7-12.3 [facility] Comment on above: Performed By: #### L [id number] #### [facility] (DEFAULT) [address] [place] [address] Platelets (Bld) [#/Vol] 147 10*3/uL Normal 146-337 [facility] Comment on above: Performed By: #### L AB980 #### [facility] (DEFAULT) [address] [place] [address] RBC (Bld) [#/Vol] 4.12 10*6/uL Low 4.38-5.83 [facility] Comment on above: Performed By: #### L AB980 #### U [facility] (DEFAULT) [address] [place] [address] RBC Distribution 13.4 % Normal 10.9-14.3 [facility] Comment on above: Performed By: #### L AB980 #### [facility] (DEFAULT) [address] [place] [address] Segs + Bands Auto 64.0 % Normal [facility] Comment on above: Performed By: #### L AB980 #### U [facility] (DEFAULT) [address] [place] [address] Segs + Bands,Absolute Auto 5.67 K/uL Normal 1.57-6.19 [facility] Comment on above: Performed By: #### L AB980 #### [facility] (DEFAULT) [address] [place] [address] WBC (Bld) [#/Vol] 8.86 10*3/uL Normal 3.73-10.10 [facility] Comment on above: Performed By: #### L AB980 #### [facility] (DEFAULT) [address] [place] [address] CHEM 7 (LYTES,BUN,CREA,GLUC) on 08-03-2020 Anion gap [Moles/Vol] 16 mmol/L Normal 7-17 [facility] Comment on above: Performed By: #### C HM7 #### [facility] (DEFAULT) [address] [place] [address] Chloride [Moles/Vol] 105 mmol/L Normal 98-108 [facility] Comment on above: Performed By: #### C HM7 #### [facility] (DEFAULT) [address] [place] [address] CO2 [Moles/Vol] 26 mmol/L Normal 22-30 [facility] Comment on above: Performed By: #### C HM7 #### [facility] (DEFAULT) [address] [place] [address] Creatinine [Mass/Vol] 0.72 mg/dL Normal 0.70-1.30 [facility] Comment on above: Performed By: #### C HM7 #### [place] [facility] (DEFAULT) [address] [address] EST GFR, >=60 Normal >=60 [facility] Comment on above: Performed By: #### C HM7 #### [place] [facility] (DEFAULT) [address] [place] [address] EST GFR,Non >=60 Normal >=60 [facility] Comment on above: Performed By: #### C HM7 #### [place] [facility] (DEFAULT) [address] [address] Glucose [Mass/Vol] 126 mg/dL High 70-99 [facility] Comment on above: Performed By: #### C HM7 #### [place] [facility] (DEFAULT) [address] [address] Osmolality [Osmolality] 305 mosm/kg Normal 278-305 [facility] Comment on above: Performed By: #### C HM7 #### [place] [facility] (DEFAULT) [address] [address] Potassium [Moles/Vol] 3.7 mmol/L Normal 3.5-5.0 [facility] Comment on above: Performed By: #### C HM7 #### [place] [facility] (DEFAULT) [address] [address] Sodium [Moles/Vol] 143 mmol/L Normal 133-143 [facility] Comment on above: Performed By: #### C HM7 #### [place] [facility] (DEFAULT) [address] [address] Urea nitrogen [Mass/Vol] 28 mg/dL High 7-22 [facility] Comment on above: Performed By: #### C HM7 #### [place] [facility] (DEFAULT) [address] [place] [address] Urea nitrogen/Creatinine [Mass ratio] 39 mg/mg Normal [facility] Comment on above: Performed By: #### C HM7 #### [facility] (DEFAULT) [address] [place] [address] EP PROCEDURE - EPS/ABLATION/ DEVICEon 08-03-2020 EP [...] MONTHS - TO BE COMPLETED WITH HIS REGULATORY SUBMISSIONS SPECIALIST IN [place] ? ALL CARDIAC AND EP FOLLOW UP WITH HIS REGULATORY SUBMISSIONS SPECIALIST IN [place] - NO F/U AT [facility] ? HOME TODAY ? GIVE LASIX THIS AM ? INCREASE LOSARTAN TO 50MG PO BID ? CONTINUE TOPROL AND ELIQUIS Antoine Perez EP Procedure - EPS/Ablation/Device Ordering Physician: EDMUND PARRY Order #: [id number] Study Date: 08/03/2020 Patient Information Name MRN Description Antoine Perez [id number] 74 y.o. male Physicians Panel Physicians Referring [...] MONTHS - TO BE COMPLETED WITH HIS REGULATORY SUBMISSIONS SPECIALIST IN [place] ? ALL CARDIAC AND EP FOLLOW UP WITH HIS REGULATORY SUBMISSIONS SPECIALIST IN [place] - NO F/U AT [facility] ? HOME [...] (08/03/2020 9: (more content not included)... Normal [facility] PT,INR,PTTon 08-03-2020 aPTT Coag (Bld) [Time] 44.4 s High 24.0-34.3 [facility] Comment on above: Performed By: #### P TPTT #### [facility] (DEFAULT) [address] [place] [address] INR Coag (PPP) [Relative time] 1.3 {INR} High 0.9-1.1 [facility] Comment on above: Performed By: #### P TPTT #### [facility] (DEFAULT) [address] [place] [address] PT Coag (PPP) [Time] 15.8 s High 11.9-14.2 [facility] Comment on above: Performed By: #### P TPTT #### [facility] (DEFAULT) [address] [place] [address] CNNURSEon 07-14-2020 CNNURSE Nurse Visit (COVAMD) PEREZANTOINE Taveras ([id number]) 1945 M Date Time Provider Department 07/14/20 2:25 PM COVID VACCINE MUKESH PHAM During your visit today, we recorded the following information about you: Referring Provider: RENZO DÍAZ [[id number]] Allergies As of Date: 07/14/2020 Noted Allergy Reaction SULFA (SULFONAMIDE ANTIBIOTICS) 02/06/2012 4 - Hives Comments: childhood Date Reviewed: 10/12/2019 Reviewed by: Jeferson Chirinos Ma - Fully Assessed Primary Visit Diagnosis:Need for COVID-19 vaccine [Z23] Order(s):SARS-COVID VACCINE 1ST DOSE APPT [[id number]] Order #: [id number] Spare BackupSupramed COVID-19 VACCINE [[id number]] Order #: [id number] Spare Backup SARS-COV-2 VACCINE 2D DOSE APPT [[id number]] Order #: [id number] FUTURE Prescriptions as of 07/14/2020 Sig: MELOXICAM [...] Encounter Status:Closed by HOWARD HAQ on 07/15/20 [facility] No Panel Information Influenza Types A,B Direct FA ([facility]) [facility] Work Phone: Vital Signs Date Time Vital Sign Value Performing Clinician Faci lity 10-12-2024 06:49-0400 Body height 172.[address] Avni Walker MD Work Phone: [facility] 10-12-2024 06:49-0400 Body mass index (BMI) [Ratio] 35.1 kg/m2 Dr. Avni Walker MD Work Phone: [facility] 10-12-2024 06:49-0400 Body weight 104.[address] Avni Walker MD Work Phone: [facility] 10-12-2024 06:49-0400 Diastolic blood pressure 71 mm[Hg] Dr. Avni Walker MD Work Phone: [facility] 10-12-2024 06:49-0400 Heart rate 54 /min Dr. Avni Walker MD Work Phone: [facility] 10-12-2024 06:49-0400 Respiratory rate 18 /min Dr. Avni Walker MD Work Phone: [facility] 10-12-2024 06:49-0400 SaO2% (BldA) [Mass fraction] 93 % Dr. Avni Walker MD Work Phone: [facility] 10-12-2024 06:49-0400 Systolic blood pressure 122 mm[Hg] Dr. Avni Walker MD Work Phone: [facility] 07-14-2023 14:11-0500 Body height 172.[address] Avni Walker Work Phone: [facility] 07-14-2023 14:11-0500 Body mass index (BMI) [Ratio] 36.1 kg/m2 Dr. Avni Walker Work Phone: [facility] 07-14-2023 14:11-0500 Body weight 107.[address] Avni Walker Work Phone: [facility] 07-14-2023 14:11-0500 Diastolic blood pressure 52 mm[Hg] Dr. Avni Walker Work Phone: [facility] 07-14-2023 14:11-0500 Heart rate 48 /min Dr. Avni Walker Work Phone: [facility] 07-14-2023 14:11-0500 Respiratory rate 18 /min Dr. Avni Walker Work Phone: [facility] 07-14-2023 14:11-0500 Systolic blood pressure 100 mm[Hg] Dr. Avni Walker Work Phone: [facility] 03-19-2023 11:02-0400 Body temperature 97.6 [degF] Dr. Avni Walker Work Phone: [facility] 03-19-2023 11:02-0400 Diastolic blood pressure 57 mm[Hg] Dr. Avni Walker Work Phone: [facility] 03-19-2023 11:02-0400 Heart rate 45 /min Dr. Avni Walker Work Phone: [facility] 03-19-2023 11:02-0400 Respiratory rate 16 /min Dr. Avni Walker Work Phone: [facility] 03-19-2023 11:02-0400 SaO2% (BldA) [Mass fraction] 94 % Dr. Avni Walker Work Phone: [facility] 03-19-2023 11:02-0400 Systolic blood pressure 141 mm[Hg] Dr. Avni Walker Work Phone: 7(194)493-018485 [place] [address] 03-19-2023 07:10-0400 Body height 172.[address] Avni Walker Work Phone: 6(503)171-825685 [place] [address] 03-19-2023 07:10-0400 Body mass index (BMI) [Ratio] 37.4 kg/m2 Dr. Avni Walker Work Phone: 5(064)880-825385 [place] [address] 03-19-2023 07:10-0400 Body weight 111.[address] Avni Walker Work Phone: 4(711)389-138270 [place] [address] 01-14-2023 14:27-0400 Body mass index (BMI) [Ratio] 36.8 kg/m2 Dr. Avni Walker Work Phone: 1(662)480-612444 [address] 01-14-2023 14:27-0400 Body weight 109.[address] Avni Walker Work Phone: 1(130)202-888370 [place] [address] 01-14-2023 14:27-0400 Diastolic blood pressure 84 mm[Hg] Dr. Avni Walker Work Phone: 7(186)714-782970 [place] [address] 01-14-2023 14:27-0400 Heart rate 62 /min Dr. Avni Walker Work Phone: 3(153)111-751670 [place] [address] 01-14-2023 14:27-0400 Respiratory rate 18 /min Dr. Avni Walker Work Phone: 6(069)744-692185 [place] [address] 01-14-2023 14:27-0400 SaO2% (BldA) [Mass fraction] 92 % Dr. Avni Walker Work Phone: 1(907)268-037985 [place] [address] 01-14-2023 14:27-0400 Systolic blood pressure 139 mm[Hg] Dr. Avni Walker Work Phone: 4(884)297-515385 [place] [address] 06-27-2022 14:29-0500 Body height 172.[address] Avni Walker Work Phone: 8(354)758-211770 [place] [address] 06-27-2022 14:21-0500 Body mass index (BMI) [Ratio] 35.4 kg/m2 Dr. Avni Walker Work Phone: [facility] 06-27-2022 14:21-0500 Body weight 105.[address] Avni Walker Work Phone: [facility] 06-27-2022 14:21-0500 Diastolic blood pressure 73 mm[Hg] Dr. Avni Walker Work Phone: [facility] 06-27-2022 14:21-0500 Heart rate 45 /min Dr. Avni Walker Work Phone: [facility] 06-27-2022 14:21-0500 Respiratory rate 18 /min Dr. Avni Walker Work Phone: [facility] 06-27-2022 14:21-0500 Systolic blood pressure 127 mm[Hg] Dr. Avni Walker Work Phone: [facility] 01-08-2022 16:10-0400 Body temperature 97.2 [degF] Dr. Avni Walker Work Phone: [facility] Work Phone: 01-08-2022 16:10-0400 Diastolic blood pressure 55 mm[Hg] Dr. Avni Walker Work Phone: [facility] Work Phone: 01-08-2022 16:10-0400 Heart rate 41 /min Dr. Avni Walker Work Phone: [facility] Work Phone: 01-08-2022 16:10-0400 Respiratory rate 16 /min Dr. Avni Walker Work Phone: [facility] Work Phone: 01-08-2022 16:10-0400 SaO2% (BldA) [Mass fraction] 96 % Dr. Avni Walker Work Phone: [facility] Work Phone: 01-08-2022 16:10-0400 Systolic blood pressure 145 mm[Hg] Dr. Avni Walker Work Phone: [facility] Work Phone: 01-08-2022 14:46-0400 Body height 172.[address] Avni Walker Work Phone: [facility] Work Phone: 01-08-2022 14:46-0400 Body mass index (BMI) [Ratio] 33.9 kg/m2 Dr. Avni Walker Work Phone: [facility] Work Phone: 01-08-2022 14:46-0400 Body weight 101.[address] Avni Walker Work Phone: [facility] Work Phone: 12-25-2021 14:39-0400 Body mass index (BMI) [Ratio] 34.2 kg/m2 Dr. Avni Walker Work Phone: [facility] Work Phone: 12-25-2021 14:39-0400 Body weight 102.[address] Avni Walker Work Phone: [facility] Work Phone: 12-25-2021 14:39-0400 Diastolic blood pressure 62 mm[Hg] Dr. Avni Walker Work Phone: [facility] Work Phone: 12-25-2021 14:39-0400 Heart rate 45 /min Dr. Avni Walker Work Phone: [facility] Work Phone: 12-25-2021 14:39-0400 Respiratory rate 16 /min Dr. Avni Walker Work Phone: [facility] Work Phone: 12-25-2021 14:39-0400 Systolic blood pressure 112 mm[Hg] Dr. Avni Walker Work Phone: [facility] Work Phone: 06-26-2021 14:40-0500 Body height 172.[address] Avni Walker Work Phone: [facility] Work Phone: 06-26-2021 14:40-0500 Body mass index (BMI) [Ratio] 34.9 kg/m2 Dr. Avni Walker Work Phone: [facility] Work Phone: 06-26-2021 14:40-0500 Body weight 104.[address] Avni Walker Work Phone: [facility] Work Phone: 06-26-2021 14:40-0500 Diastolic blood pressure 73 mm[Hg] Dr. Avni Walker Work Phone: [facility] Work Phone: 06-26-2021 14:40-0500 Heart rate 60 /min Dr. Avni Walker Work Phone: [facility] Work Phone: 06-26-2021 14:40-0500 Respiratory rate 18 /min Dr. Avni Walker Work Phone: [facility] Work Phone: 06-26-2021 14:40-0500 SaO2% (BldA) [Mass fraction] 98 % Dr. Avni Walker Work Phone: [facility] Work Phone: 06-26-2021 14:40-0500 Systolic blood pressure 123 mm[Hg] Dr. Avni Walker Work Phone: [facility] Work Phone: Encounters Encounter Date Encounter Type Care Provider Facility Start: 12-14-2024 Encounter for genera l adult medical examination without abnormal findings Avni Walker [facility] Start: 12-08-2024 End: 12-08-[address] Avni Walker MD Work Phone: -[facility] Office 3rd [facility] Start: 12-08-2024 End: 12-08-[address] Avni Walker MD -Laboratory Phy Office 3rd Flr Start: 12-08-2024 End: 12-08-2024 ambulatory Avni Manpreet Kofi Facility:[facility] Start: 10-12-2024 End: 10-12-2024 Patient encounter procedure Jules FRANKLIN [facility] Work Phone: Start: 10-12-2024 End: 10-12-[address] Avni Walker MD Work Phone: [facility] Work Phone: Start: 09-30-2024 End: 09-30-[address] Avni Walker MD Work Phone: [facility] Work Phone: Start: 09-30-2024 End: 09-30-[address] Avni Walker MD -Laboratory Work Phone: Start: 09-30-2024 End: 09-30-2024 ambulatory Avni Manpreet Kofi Facility:[facility] Start: 09-13-2024 End: 09-13-[address] Avni Walker MD -Laboratory Work Phone: Start: 09-13-2024 End: 09-13-2024 ambulatory Avni Manpreet Kofi Facility:[facility] Start: 07-16-2024 Encounter for other preprocedural examination Linda Perez NP [facility] Start: 05-26-2024 ambulatory Fabiola L White Facility :[facility] Start: 05-26-2024 End: 05-31-2024 Evaluation and management of inpatient Fabiola L White Facility:[facility] Start: 05-23-2024 End: 05-23-2024 Emergency department patient visit Avni Chi Kofi Facility:[facility] Start: 05-20-2024 ambulatory [facility] Kof[facility] Facility:[facility] Start: 05-20-2024 End: 05-20-2024 ambulatory Avni Chi Kofi Facility:[facility] Start: 04-13-2024 End: 04-13-2024 ambulatory Avni Chi Kofi Facility:[facility] Start: 03-19-2024 End: 03-19-2024 ambulatory Avni Walker Facility:[facility] Start: 03-15-2024 End: 03-15-2024 ambulatory Avni Chi Kofi Facility:[facility] Start: 03-09-2024 End: 03-09-2024 ambulatory Avni Chi Kofi Facility:[facility] Start: 03-09-2024 End: 03-09-2024 ambulatory Sai Jeffrey Facility:[facility] Start: 09-17-2023 End: 09-17-[address] Avni Walker Work Phone: [facility] Work Phone: Start: 09-17-2023 End: 09-17-[address] Avni Walker Work Phone: [facility]-Laboratory, Phy Office 3rd Flr Start: 09-09-2023 End: 09-09-[address] Avni Walker Work Phone: [facility] Work Phone: Start: 09-09-2023 End: 09-09-[address] Avni Walker Work Phone: [facility]-Laboratory, Phy Office 3rd Flr Start: 07-23-2023 End: 07-23-[address] Avni Walker Work Phone: [facility] Work Phone: Start: 07-23-2023 End: 07-23-[address] Avni Walker Work Phone: [facility]Neurology Work Phone: Start: 07-14-2023 End: 07-14-[address] Avni Walker Work Phone: [facility] Work Phone: Start: 03-19-2023 End: 03-19-2023 Admission to same day surgery center Dr. Avni Walker Work Phone: [facility] Start: 03-19-2023 End: 03-19-[address] Avni Walker Work Phone: [facility] Work Phone: Start: 01-14-2023 End: 01-14-[address] Avni Walker Work Phone: [facility] Work Phone: Start: 09-04-[address] [facility] Start: 08-30-2022 End: 08-30-[address] Avni Walker Work Phone: [facility] Work Phone: Start: 08-30-2022 End: 08-30-[address] Av[facility] Walker [facility] Start: 07-10-2022 End: 07-10-[address] Av[facility] Walker [facility] Start: 06-27-2022 End: 06-27-[address] Avni Walker Work Phone: [facility] Start: 03-06-2022 End: 03-06-[address] Avni Walker Work Phone: [facility] Work Phone: Start: 03-06-2022 End: 03-06-[address] Avni Walker [facility] Phone: [facility] Office 3rd Flr Start: 01-08-2022 End: 01-08-[address] Avni Walker Work Phone: [facility] Work Phone: Start: 01-08-2022 End: 01-08-[address] Avni Walker [facility] Start: 01-08-2022 End: 01-08-[address] Av[facility] Walker [facility] Start: 01-07-2022 End: 01-07-[address] Avni Walker Work Phone: [facility] Work Phone: Start: 01-07-2022 End: 01-07-[address] Avni Walker [facility] Start: 12-25-2021 End: 12-25-[address] Avni Walker Work Phone: [facility] Start: 09-05-2021 End: 09-05-[address] Avni aWlker Work Phone: [facility] Phy Office 3rd Flr Start: 07-04-2021 End: 07-04-[address] [facility] Walker [facility] Start: 06-26-2021 End: 06-26-[address] Avni Walker Work Phone: [facility] Start: 08-03-2020 End: 08-03-2020 ambulatory AVNIMANPREET WALKER Facility:[facility] Procedures Date Procedure Procedure Detail Performing Clinician Start: 09-30-2024 SARS-CoV-2, Influenz a & RSV (PCR) Dr. Avin Walker MD Work Phone: Start: 09-13-2024 Vitamin D, 25-hydrox y measurement Dr. Avni Walker MD Work Phone: Comment on above: Vitamin D StatusDefi ciency: <20 ng/mL (50nmol/L)Insufficiency: 20-30 ng/mL (50-75 nmol/L)Sufficiency: 30-100 ng/mL (75-250 nmol/L)Toxicity: >100 ng/mL (>250 nmol/L) Start: 03-19-2023 Cysto Direct Visuali zation (Not Applicable) Dr. Avni Walker Work Phone: Influenza Types A,B Direct FA ([facility]) Dr. Avni Walker Work Phone: Respiratory syncytia l virus antigen assay Dr. Avni Walker Work Phone: Plan of Treatment Date Care Activity Detail Author Start: 12-08-2024 Borrelia burgdorferi blot test [facility] Start: 10-12-2024 Evaluation of diagno stic study results [facility] Start: 03-19-2023 Patient discharge [facility] Start: 03-19-2023 End: 03-19-2023 [facility] Start: 03-19-2023 Ambulation without limitation [facility] Start: 03-19-2023 Medication education [facility] Start: 03-19-2023 Taking patient vital signs [facility] Laboratory data interpretation [facility] Patient referral [facility] Work Phone: [facility] Immunizations Immunization Date Immunization Notes Care Provider Fa cility 02-17-2024 influenza, injectabl e, quadrivalent, preservative free Dr. Avni Walker MD Work Phone: [facility] 01-05-2020 influenza, injectabl e, quadrivalent, preservative free Dr. Avni Walker Work Phone: [facility] 01-05-2020 influenza, seasonal, injectable Dr. Avni Walker Work Phone: [facility] Payers Date Payer Category Payer Self-pay [id number] 2020 Unknown [id number] 2020 Medicare [id number] 1945 Unknown [id number] 2.16. [id number] Unknown [id number] [facility] [id number] Unknown [id number] 2.16.8 [id number] Unknown [id number] 2.16.8 40.1.010814.3.579.2.462 Unknown [id number] 2.16.8 40.1.147220.3.579.2.462 Unknown [id number] 2.16.8 40.1.915647.3.579.2.462 Unknown [id number] 2.16.8 40.1.705089.3.579.2.462 Unknown [id number] 2.16.8 40.1.731906.3.579.2.462 Unknown [id number] 2.16.8 40.1.545565.3.579.2.462 Unknown [id number] 2.16.8 40.1.899324.3.579.2.462 Unknown [id number] 2.16.8 40.1.319249.3.579.2.462 Unknown [id number] 2.16.8 40.1.151838.3.579.2.462 Unknown [id number] 2.16.8 40.1.818148.3.579.2.462 Unknown [id number] 2.16.8 40.1.242238.3.579.2.462 Unknown [id number] 2.16.8 40.1.658396.3.579.2.462 Unknown [id number] 2.16.8 40.1.138095.3.579.2.462 Unknown [id number] 2.16.8 40.1.431774.3.579.2.462 Unknown [id number] 2.16.8 40.1.103332.3.579.2.462 Unknown [id number] 2.16.8 40.1.119518.3.579.2.462 Unknown [id number] 2.16.8 40.1.538183.3.579.2.462 Unknown [id number] 2.16.8 40.1.538709.3.579.2.462 Unknown [id number] 2.16.8 40.1.118769.3.579.2.462 Social History Date Type Detail Facility Start: 06-26-2021 End: 07-14-2023 Tobacco smoking status NHIS Unknown if ever smoked [facility] Start: 11-16-2020 Occasional [facility] Start: 11-16-2020 None [facility] Start: 06-02-2020 Spouse/ Signif icant Other [facility] Start: 11-16-2020 Non-smoker [facility] Start: 1945 Sex Assigned At Male [facility] Start: 05-26-2024 Tobacco smoking status NHIS Ex-smoker (finding) [facility] Goals Date Patient Goal Desired Activity /State Mental Status Date Assessment Result Facility 03-19-2023 Cognitive function Voice/Name [facility] Work Phone: 01-08-2022 Cognitive function Voice/Name [facility] Work Phone: Clinical Notes 07-10-2020 to 10-12-2024 [...] atrial flutter chronic Ma y 2024 1:06pm [facility] Work Phone: 1(366) 418-377601-13-2025 [facility] Medical Records Department [address] [place] [address] Discharge Summary 05/31/24 1305 MR#: [id number] Acct: [id number] Name: ANTOINE PEREZ Rep #: [id number] : 1945 78 From: Keith Kuhn MD PCP: Dr. Avni Walker MD Status:ADM IN Location: [facility] [id number] Providers Date of Admission: 05/26/24 Date of Discharge: 05/31/24 Primary Care Physician: Dr. Avni Walker MD Consultations 05/28/24 09:25 Consult: Onc/Wound/travel registered nurse icu Routine Comment: Reason for Consult:: right neck [...] 650 mg PO Q12H (more content not included)...[facility]11-01-2023 Discharge summary Author Rudy Corea [facility] March 19, 2023 7:32am Note Date/Time March 19, 2023 7 :32am [facility] Medical Records Department [address] [place] [address] Instructions for Home/Discharge Instructions 03/19/23 0732 MR#: [id number] Acct: [id number] Name: ANTOINE PEREZ Rep #:[id number] : 1945 77 From: Rudy Corea MD [...] Up With: Rudy Corea MD When: Call [phone] for an appointment Test Results: Test results [...] CC: Dr. Avni Walker MD ~ Signed [facility] Work Phone: 1(951) 966-910611-01-2023 History and physical note Author Rudy Corea [facility] March 19, 2023 7:31am Note Date/Time March 19, 2023 7 :31am [facility] Medical Records Department [address] [place] [address] History & Physical Exam 03/19/23 0731 MR#: [id number] Acct: [id number] Name: ANTOINE PEREZ Rep #:[id number] : 1945 77 From: Rudy Corea MD PCP: Dr. Avni Walker MD Status:REG S OK Location: [place] [address] History and Physical 77 yo male comes [...] ng/mL 4.87 mg/dl 5.30ng/ml 4.38 ng/ml Notes [facility] [address] [place], [place], [id number] This test was performed using the TPSA assay method for the [employer] chemistry system. Values obtained with different assay methods cannot be used interchangably. When changing PSA assays in the course of monitoring a patient, additional sequential testing should be carried out to confirm baseline values. [facility] [address] [place], [place], [id number] This test was performed using the TPSA assay method for the [employer] chemistry system. Values obtained with different assay methods cannot be used interchangably. When changing PSA assays in the course of monitoring a patient, additional sequential testing should be carried out to confirm baseline values. [facility] [address] [place], [id number] This test was performed using the TPSA assay method for the [employer]ension chemistry system. Values obtained with different assay methods cannot be used interchangably. When changing PSA assays in the course of monitoring a patient, additional sequential testing should be carried out to confirm baseline values. [facility] [address] [place], [address] This test was performed using the TPSA assay method for the [employer]ension chemistry system. Values obtained with different assay methods cannot be used interchangably. When changing PSA assays in the course of monitoring a patient, additional sequential testing should be carried out to confirm baseline values. [facility] [address] [place], [address] This test was performed using the TPSA assay method for the [employer] chemistry system. Values obtained with different assay methods cannot be used interchangably. When changing PSA assays in the course of monitoring a patient, additional sequential testing should be carried out to confirm baseline values. Test performed at: [facility] [address] [place] [address] This test was performed using [...] confirm baseline values. PROCEDURES: Flexible Cystoscopy - 31854 Risks, benefits, and some of the potential [...] Corea MD; Dr. Avni Walker MD~ Signed [facility] Work Phone: 1(885) 610-941311-01-2023 Procedure [facility] 07-10-2020 NotePatient Outreach ([facility]OVAMN) ANTOINE PEREZ ([id number]) 1945 M Date Time Provider Department 07/10/20 RENZO DÍAZ During your visit today, we recorded the following information about you: Allergies As of Date: 07/10/2020 Noted Allergy Reaction SULFA (SULFONAMIDE ANTIBIOTICS) 02/06/2012 4 - Hives Comments: childhood Date Reviewed: 10/12/2019 Reviewed by: Surprise Chirinos Ma - Fully Assessed Order(s):SARS-COVID VACCINE 1ST DOSE APPT [[id number]] Order #: [id number] FUTURE Prescriptions as of 07/10/2020 Sig: MELOXICAM [...] Text Encounter Status:Closed by DEDE PRODUSER on 07/13/20[facility] Evaluation note* Diagnosis Onset Date Resolution Status Benign essential hypertension chronic Hyperlipidemia chronic Left bundle branch block (LBBB) chronic Typical atrial flutter chron ic Non-ischemic cardiomyopathy resolved [facility] Work Phone: Evaluation note* Diagnosis Onset Date Resolution Status Benign essential hypertension chronic Hyperlipidemia chronic Left bundle branch block (LBBB) chronic Typical atrial flutter chron ic Non-ischemic cardiomyopathy resolved COVID-19 acute [facility] Work Phone: Evaluation note* Diagnosis Onset Date Resolution Status On amiodarone therapy acute Benign essential hypertension chronic Hyperlipidemia chronic Left bundle branch block (LBBB) chronic Typical atrial flutter chron ic Non-ischemic cardiomyopathy resolved [facility] Work Phone: Evaluation noteNo assessment information available [facility] Work Phone: Hospital Discharge instructions Additional Instructions Implant Used?: [facility] Work Phone: Reason for referral (narrative)No reason for referral information available[facility] Work [facility]: Summary Purpose Family History No [...] Will No June 02 7:47pm Power of Diesel Machinist No June 02, 2020 7:47pm Advance Directive Response Recorded Date/ Time Name of Medical Power of Diesel Machinist March 11, 2023 3:04pm Advance Directives Yes March 27, 2020 10:43am Living Will Yes March 11 3:04pm Power of Diesel Machinist Yes March 11, 2023 3:04pm Advance Directive Response Recorded Date/ Time Advance Directives Yes March 27, 2020 10:43am Living Will Yes March 11 3:04pm Power of Diesel Machinist Yes March 11, 2023 3:04pm Advance Directive [...] Non-ischemic cardiomyopathy Chief Complaint 6 M FU RESIDENTIAL DRUG THERAPY Reason for Visit On amiodarone [...] section and content) DATE CREATED AUTHOR 08/26/2020 [facility] DATE CREATED AUTHOR AUTHOR'S ORGANIZ ATION 05/06/2021 [facility] DATE CREATED AUTHOR AUTHOR'S ORGANIZ ATION 06/16/2021 [facility] DATE CREATED AUTHOR AUTHOR'S ORGANIZ ATION 12/16/[address] [facility] Care Teams (unrecognized sec tion and content) Team Status: Active Member Role Status Dates Dr. Avni Walker MD Family Provider Active Dr. Avni Walker MD Primary Care Provider Active Team Status: Inactive Member Role Status Dates Dr. Avni Walker MD Primary Care Provider, Referring Provider Active Ottoniel Saini MAINTENANCE SERVICE TECHNICIAN, MAINTENANCE SERVICE TECHNICIAN-C Attending Provider Active Team Status: Inactive Member Role Status Dates Dr. Avni Walker MD Primary Care Provider Active Dr. Rudy Corea MD Attending Provider, Referr ing Provider Active Team Status: Inactive Member Role Status Dates Dr. Avni Walker MD Primary Care Provider Active Ottoniel Saini MAINTENANCE SERVICE TECHNICIAN, MAINTENANCE SERVICE TECHNICIAN-C Attending Provider, Referring Pro vider Active Team [...] 12, 2024 End: October 12, 2024 Dr. Anvi Walker MD Referring Provider Active Start: October [...] BE BASED ON THE PRIMARY CLINICAL RECORDS. [employer] provides no warranty or guarantee of the accuracy or completeness of information in this document.
== END | disposition home or self-care (01) ==
LOC: POLAB3 16:52
PROVIDERS: PCP Family Medicine Geriatric Medicine; Visit Provider Family Medicine Geriatric Medicine
DX: J98.8 Other specified respiratory disorders (principal)
CPT/HCPCS: 87631

== ENCOUNTER → 2025-04-19 | Outpatient (CLI) | payer MEDICARE, BC, SELFPAY ==
--- NOTE | 2025-04-19 12:45 | RAD_ITS ---
PROCEDURE: CHEST PA AND LATERAL 04/19/2025 REASON FOR EXAM: AMIODARONE THERAPY TECHNIQUE: Procedure Code: RADCXR Modality: DX Procedure: CHEST PA AND LATERAL COMPARISON: March 09, 2024 FINDINGS: Heart size and mediastinal configuration are within normal limits. There is no focal infiltrate or consolidation. There is no pneumothorax or effusion. Aortic calcifications are noted. There is no acute bony abnormality. A calcified granuloma in the right midlung appears stable. RAD/Chest PA and Lateral IMPRESSION: No acute process is identified in the chest. Reading Location: [place]
[2025-04-19 13:49] LABS: Magnesium 2.2 mg/dL (1.5-2.2)
[2025-04-19 14:02] LABS: AST(SGOT) 20 U/L (<=37); Alanine Aminotransfer ALT/SGPT 15 U/L (<=46); Albumin, Serum 4.3 g/dL (3.4-4.8); Alkaline Phosphatase 81 U/L (40-129); Anion Gap 11 (5-15); BUN 18 mg/dL (4-19); BUN/Creat Ratio 26.8 RATIO (10-20); Calcium,Total 9.3 mg/dL (7.6-11.0); Carbon Dioxide 27.5 mmol/L (21.0-32.0); Chloride 102 mmol/L (98-108); Cholesterol 151 mg/dL (<=200); Globulin 2.8 g/dL (2.2-4.2); Glucose 98 mg/dL (70-99); Low Density Lipoprotein Calc. 60 mg/dL; Potassium 4.0 mmol/L (3.3-5.1); Triglycerides 88 mg/dL; Very Low Density Lipoprotein 18 mg/dL (5-40); cholesterol:hdl ratio screen 2.03
== END | disposition home or self-care (01) ==
LOC: RAD 12:43
PROVIDERS: PCP Family Medicine Geriatric Medicine; Referring Provider Student in an Organized Health Care Education/Training Program; Visit Provider Student in an Organized Health Care Education/Training Program
DX: Z79.899 Other long term (current) drug therapy (principal)
CPT/HCPCS: 36415; 71046; 80053; 80061; 83735; 84443

== ENCOUNTER → 2025-04-28 | Outpatient (CLI) | payer MEDICARE, BC, SELFPAY ==
[2025-04-28 15:31] LABS: Hematocrit 37.7 % (40-54); Hemoglobin 12.6 g/dL (13.0-16.5); Immature Granulocytes Count 0.030 X10^3/uL (0.0-0.0); Mean Corp Hgb Conc 33.4 g/dL (32-36); Mean Corpuscular Volume 101.6 fL (80-94); Mean Platelet Vol. 12.0 fl (6.2-12.0); NRBC Flagged by Analyzer 0 % (0-5); Platelet Count 164 K/mm3 (150-450); RBC Distribution Width CV 13.8 % (11.6-14.6); RBC Distribution Width SD 52.2 fl (35.1-43.9); Red Blood Count 3.71 M/mm3 (4.6-6.2); White Blood Count 8.6 K/mm3 (4.4-11.0)
[2025-04-28 16:47] LABS: Uric Acid 3.4 mg/dL (3.5-7.2); Vitamin D,25 Hydroxy 70.3 ng/mL (30-100)
[2025-04-28 23:06] LABS: Xtra Tube Kwok EXTRA TUBE
== END | disposition home or self-care (01) ==
PROVIDERS: PCP Family Medicine Geriatric Medicine; Visit Provider Family Medicine Geriatric Medicine
DX: E55.9 Vitamin D deficiency, unspecified (principal); I10 Essential (primary) hypertension; M10.9 Gout, unspecified
CPT/HCPCS: 36415; 82306; 84550; 85025

== ENCOUNTER → 2025-05-04 | Outpatient (CLI) | payer MEDICARE, BC, SELFPAY ==
--- OUTSIDE RECORDS SUMMARY | 2025-05-04 08:18 | XMS RPT_ITS | CCD ---
Author Organization [facility] Care Team Providers Care Technical Supervisor Name Role Phone RANDY WALKER Primary Care Unavailable EDMUND PARRY Attending Unavailable EDMUND PARRY Admitting Unavailable Dr. Vinod Walker Chi Primary Care Provider [phone] Kofi, Dr. Vinod Case Referring Provider Dr. Sai Murphy Attending Provider Kofi, Dr. Vinod Case Primary Care Provider [phone] Kofi, Dr. Vinod Case Referring Provider Roof NAVIGATION TEACHER, NAVIGATION TEACHER-C Ottoniel Valenzuela Attending Provider Perez NAVIGATION TEACHER, NAVIGATION TEACHER-C Linda Attending Provider Kofi, Dr. Vinod Case Primary Care Provider Kofi, Dr. Vinod Case Referring Provider Roof NAVIGATION TEACHER, NAVIGATION TEACHER-C Ottoniel Valenzuela Attending Provider Kofi, Dr. Vinod Case Primary Care Provider Kofi, Dr. Vinod Case Referring Provider Roof NAVIGATION TEACHER, NAVIGATION TEACHER-C Ottoniel Valenzuela Attending Provider Kofi, Dr. Vinod Case Primary Care Provider Kofi, Dr. Vinod Case Referring Provider Roof NAVIGATION TEACHER, NAVIGATION TEACHER-C Ottoniel Valenzuela Attending Provider KofiDr. Vinod wiley MD, Chi Primary Care Provider [phone] Kofi JULIEN, Dr. Vinod Case Attending Provider Kofi JULIEN, Dr. Vinod Case Referring Provider Jules Shultz Attending Provider [phone] White, Fabiola L Admitting Unavailable White, Fabiola L Consulting Unavailable Kofi, Vinod Chi Primary Care Unavailable Bam, Keith Attending Unavailable Ángel Quiroz Consulting Unavailable Jluis Carter Consulting Unavailable White, Fabiola L Consulting Unavailable White, Fabiola L Admitting Unavailable Kofi, Vinod Chi Primary Care Unavailable Ángel Quiroz Attending Unavailable Bam, Keith Referring Unavailable Ángel Quiroz Consulting Unavailable Jluis Carter Consulting Unavailable Jluis Carter Attending Unavailable Jules Perez Attending Unavailable Kofi, Vinod Chi Primary Care Unavailable Kofi, Vinod Chi Referring Unavailable Sharri Cisneros Consulting Unavailable Kofi, Vinod Chi Primary Care Unavailable Kofi, Vinod Chi Referring Unavailable Linda Perez NP Attending Unavailable Kofi, Vinod Chi Consulting Unavailable White, Fabiola L Attending Unavailable Keith Kuhn Attending Unavailable Bam, Keith Consulting Unavailable Kofi, Vinod Chi Primary Care Unavailable Kofi, Vinod Chi Attending Unavailable Kofi, Vinod Chi Referring Unavailable Kofi, Vinod Chi Attending Unavailable Kofi, Vinod Chi Primary Care Unavailable Kofi, Vinod Chi Referring Unavailable Eliehaw, Sharri Consulting Unavailable Kofi, Vinod Chi Attending Unavailable Kofi, Vinod Chi Primary Care Unavailable Kofi, Vinod Chi Referring Unavailable Kofi, Vinod Chi Primary Care Unavailable Kofi, Vinod Chi Attending Unavailable Kofi, Vinod Chi Primary Care Unavailable Kofi, Vinod Chi Attending Unavailable Kofi, Vinod Chi Attending Unavailable Kofi, Vinod Chi Primary Care Unavailable Kofi, Vinod Chi Referring Unavailable Kofi, Vinod Chi Primary Care Unavailable Kofi, Vinod Chi Attending Unavailable Kofi, Vinod Chi Primary Care Unavailable Torrey Leal Attending Unavailable Allergies Allergy Classification Reported Allergen(s) Allergy Type Date of Onset Reaction(s) Facility (13 sources) Sulfonamides (Antibiotic); 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: [Sulfa (Sulfonamide Antibiotics)] Allergy to substance 06-26-2021 [facility] Medications Current Medications Medication Drug Class(es) [...] (13 sources) Drug therapy finding; 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: [Other retirement (current) drug therapy] 12-07-2020 Episodic Other aftercare (3 sources) Other retirement (current) drug therapy; 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: [Long-term (current) use of other medications] 07-14-2023 Episodic Other aftercare (3 sources) Long-term current use of anticoagulant; 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: [controls design engineer (current) use of anticoagulants] 06-08-2024 Episodic Other circulatory disease (3 sources) H/O: atrial fibrillation; 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: [Personal history of other diseases of the circulatory system] 05-26-2024 Episodic Other connective tissue disease (12 sources) Recurrent falls ; 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: [Repeated falls] 06-26-2021 Episodic Other injuries and conditions due to external causes (3 sources) Hematoma; 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: [Other injury of unspecified body region, initial encounter] 05-31-2024 Episodic Other lower respiratory disease (12 sources) Dyspnea on exertion; 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: [Dyspnea, unspecified] 06-26-2021 Episodic Other lower respiratory disease (1 source) Other specified respiratory disorders; 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: [Other specified respiratory disorders] Onset: 03-11-2025 Episodic Other skin disorders (3 sources) Neck swelling; 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: [Localized swelling, mass and lump, neck] 05-20-2024 Episodic Other skin disorders (1 source) Rash and other nonspecific skin eruption; 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: [Rash and other nonspecific skin eruption] Onset: 03-16-2025 Episodic Hayley-; endo-; and myocarditis; cardiomyopathy (except [...] enlarged lymph nodes] Onset: 05-14-2024 Episodic Other circulatory disease (1 source) Personal history of other diseases of the circulatory system; 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: [Personal history of other diseases of the circulatory system] Onset: 10-12-2024 Episodic Other skin disorders (2 sources) Localized [...] Test Name Value Interpretation Reference Range Facility M100.678on 02-09-2025 M100.678 Pending SARS-CoV-2 (COVID 19) Negative INFLUENZA A Negative INFLUENZA B Negative RSV PCR Negative Normal [facility] Comment on above: Performed By: #### L 100.0100, L500.2500 #### [facility] [address] [place], [place], [id number] Lyme Antibodies,W Bloton Lyme Additional Comment Normal . [facility] Comment on above: Result Comment: Per CDC [...] or more days of symptoms. Performed at: [address] [id number] Trade Economist: Liliana Jameson MD, Phone: [phone] Performed By: #### L 6999.5800 #### [facility] [address] [place], [address] LYME IgG INTERP Negative Normal Negative [facility] Comment on above: Performed By: #### L 6999.5800 #### [facility] [address] [place], [address] LYME IgM INTERP Negative Normal Negative [facility] Comment on above: Result Comment: Plea se Note: Lyme immunoblot alone is not recommended for the diagnosis of Lyme disease. Current guidelines recommend the use of a two-tiered approach to Lyme serology testing to improve the sensitivity and specificity of testing. [facility] offers test code 829532 Lyme Disease Serology with Reflex to aid in the diagnosis of Lyme Disease. Performed By: #### L 6999.5800 #### [facility] [address] [place], [address] P18 Ab Absent Normal . [facility] Comment on above: Performed By: #### L 6999.5800 #### [facility] [address] [place], [address] P23 Ab Absent Normal . [facility] Comment on above: Performed By: #### L 6999.5800 #### [facility] [address] [place], [address] P28 Ab Absent Normal . [facility] Comment on above: Performed By: #### L 6999.5800 #### [facility] [address] [place], [address] P30 Ab Absent Normal . [facility] Comment on above: Performed By: #### L 6999.5800 #### [facility] [address] [place], [address] P39 Ab Absent Normal . [facility] Comment on above: Performed By: #### L 0 #### [facility] [address] [place], [address] P39 Ab Present Normal . [facility] Comment on above: Performed By: #### L 6999.0 #### [facility] [address] [place], [address] P41 Ab Present Normal . [facility] Comment on above: Performed By: #### L 5800 #### [facility] [address] [place], [address] P41 Ab Absent Normal . [facility] Comment on above: Performed By: #### L 5800 #### [facility] [address] [place], [address] P45 Ab Absent Normal . [facility] Comment on above: Performed By: #### L 5800 #### [facility] [address] [place], [address] P58 Ab Present Normal . [facility] Comment on above: Performed By: #### L 5800 #### [facility] [address] [place], [address] P66 Ab Absent Normal . [facility] Comment on above: Performed By: #### L 5800 #### [facility] [address] [place], [address] P93 Ab Present Normal . [facility] Comment on above: Performed By: #### L 5800 #### [facility] [address] [place], [address] Cardiology Visit Reporton 05 -27-2025 Cardiology Visit Report [facility] [address] [place], [place] [address] OFFICE VISIT Date of Service: 10/12/24 MR#: [id number] Acct: [id number] Name: ANTOINE PEREZ Rep #: [id number] : 1945 Provider: NOEMI Hussein Age/Sex: 78/M Location: [facility] Status: Signed HPI HPI History of Present Illness Details: Antoine Perez is an 78-year-old male who presents to office today for follow-up for monitoring his cardiovascular health. Patient was admitted to the [facility] 01/05/2020 and was found to be [...] where he was ruled out for an TX, underwent stress test which did not demonstrate any evidence of ischemia. Sleep study demonstrated mild obstructive sleep apnea. Patient was referred to [facility] for an atrial flutter ablation [...] (%) 93 Intake Visit Reasons: FU VISIT Valver Required: No Is patient in pain?: No [...] cataract surgery (more content not included)... Normal [facility] Influenza virus A and B and SARS-CoV-2 (COVID-19) and Respiratory syncytial virus RNAOrdered By: Vinod Walker on 09-30-2024 SARS-CoV-2 (COVID-19) RNA PADDY+probe Ql (Unsp spec) [facility] M100.678on 09-30-2024 M100.678 Pending SARS-CoV-2 (COVID 19) Negative INFLUENZA A Negative INFLUENZA B Negative RSV PCR Negative Normal [facility] Comment on above: Performed By: #### L 7000.5800 #### [facility] [address] [place] [address]. [place], [place], [id number] Absolute lymphocyte countOrd ered By: Vinod Walker on 09-13-2024 Lymphocytes Auto (Unsp spec) [#/Vol] 1.61 10*3/uL 0.83-4.51 [facility] Absolute neutrophil countOrd ered By: Vinod Walker on 09-13-2024 Neutrophils (Bld) [#/Vol] 5.2 10*3/uL 2.0-7.7 [facility] Anion gap in Serum or Plasma Ordered By: Vinod Walker on 09-13-2024 Anion gap [Moles/Vol] 13 mmol/L 09-30 [facility] Automated lymphocyte count a s percentage of total leukocytesOrdered By: Vinod Walker on 09-13-2024 Lymphocytes/100 WBC Auto (Unsp spec) 19.6 % - [facility] BUN/creatinine ratioOrdered By: Vinod Walker on 09-13-2024 Urea nitrogen/Creatinine [Mass ratio] 31.3 mg/mg High 10-20 [facility] Basophil percentageOrdered B y: Vinod Walker on 09-13-2024 Basophils/100 WBC (Bld) 0.2 % 0-1 [facility] Bilirubin, totalOrdered By: Vinod Walker on 09-13-2024 Bilirubin [Mass/Vol] 0.38 mg/dL 0.00-1.30 [facility] CBC W/Diff, Automatedon 08-18 Absolute Lymph 1.61 X10 3/uL Normal 0.83-4.51 [facility] Comment on above: Performed By: #### L 100.0100, L500.2500 #### [facility] [address] [place], [address] Absolute Neut 5.2 X10 3/uL Normal 2.0-7.7 [facility] Comment on above: Performed By: #### L 100.0100, L500.2500 #### [facility] [address] [place], [address] Basophils/100 WBC (Bld) 0.2 % Normal 0-1 [facility] Comment on above: Performed By: #### L 100.0100, L500.2500 #### [facility] [address] [place], [address] Eosinophils/100 WBC (Bld) 6.5 % High 0-5 [facility] Comment on above: Performed By: #### L 100.0100, L500.2500 #### [facility] [address] [place], [address] Erythrocyte distribution width (RBC) [Ratio] 13.7 % Normal 11.6-14.6 [facility] Comment on above: Performed By: #### L 100.0100, L500.2500 #### [facility] [address] [place], [address] Hematocrit (Bld) [Volume fraction] 39.3 % Low 40-54 [facility] Comment on above: Performed By: #### L 100.0100, L500.2500 #### [facility] [address] [place], [address] Hemoglobin (Bld) [Mass/Vol] 13.0 g/dL Normal 13.0-16.5 [facility] Comment on above: Performed By: #### L 100.0100, L500.2500 #### [facility] [address] [place], [address] IG% 0.900 Normal 0.0-0.9 [facility] Comment on above: Result Comment: IG% - Immature Granulocytes (promyelocytes, myelocytes and metamyelocytes) > 1% indicates that a LEFT SHIFT is Present. Performed By: #### L 100.0100, L500.2500 #### [facility] [address] [place], [address] Lymphocytes/100 WBC (Bld) 19.6 % Normal 19-41 [facility] Comment on above: Performed By: #### L 100.0100, L500.2500 #### [facility] [address] [place], [address] MCH (RBC) [Entitic mass] 33.3 pg High 27.0-32.0 [facility] Comment on above: Performed By: #### L 100.0100, L500.2500 #### [facility] [address] [place], [address] MCHC (RBC) [Mass/Vol] 33.1 g/dL Normal 32-36 [facility] Comment on above: Performed By: #### L 100.0100, L500.2500 #### [facility] [address] [place], [address] MCV (RBC) [Entitic vol] 100.8 fL High 80-94 [facility] Comment on above: Performed By: #### L 100.0100, L500.2500 #### [facility] [address] [place], [address] Monocytes/100 WBC (Bld) 9.0 % Normal 0-10 [facility] Comment on above: Performed By: #### L 100.0100, L500.2500 #### [facility] [address] [place], [address] Neutrophils/100 WBC (Bld) 63.8 % Normal 47-70 [facility] Comment on above: Performed By: #### L 100.0100, L500.2500 #### [facility] [address] [place], [address] Nucleated RBC (Bld) [#/Vol] 0 10*3/uL Normal 0-5 [facility] Comment on above: Performed By: #### L 100.0100, L500.2500 #### [facility] [address] [place], [address] Platelet mean volume (Bld) [Entitic vol] 13.0 fL High 6.2-12.0 [facility] Comment on above: Performed By: #### L 100.0100, L500.2500 #### [facility] [address] [place], [address] Platelets (Bld) [#/Vol] 173 10*3/uL Normal 150-450 [facility] Comment on above: Performed By: #### L 100.0100, L500.2500 #### [facility] [address] [place], [address] RBC (Bld) [#/Vol] 3.90 10*6/uL Low 4.6-6.2 [facility] Comment on above: Performed By: #### L 100.0100, L500.2500 #### [facility] [address] [place], [address] RDW SD 50.8 fl High 35.1-43.9 [facility] Comment on above: Performed By: #### L 100.0100, L500.2500 #### [facility] [address] [place] [place], [address] WBC (Bld) [#/Vol] 8.2 10*3/uL Normal 4.4-11.0 [facility] Comment on above: Performed By: #### L 100.0100, L500.2500 #### [facility] [address] [place], [address] Carbon dioxide, total [Moles /volume] in Central venous bloodOrdered By: Vinod Walker on 09-13-2024 CO2 [Moles/Vol] 24.4 mmol/L 21.0-32.0 [facility] Chloride assayOrdered By: Curtis Walker on 09-13-2024 Chloride [Moles/Vol] 103 mmol/L 98-108 [facility] Comprehensive Metabolic Prof ilon 09-13-2024 Albumin [Mass/Vol] 4.1 g/dL Normal 3.4-4.8 [facility] Comment on above: Performed By: #### L 100.0100, L500.2500 #### [facility] [address] [place] [place], [address] Albumin/Globulin [Mass ratio] 1.3 {ratio} Normal 0.9-2.4 [facility] Comment on above: Performed By: #### L 100.0100, L500.2500 #### [facility] [address] [place] [place], [address] ALK PHOS 83 U/L Normal 40-129 [facility] Comment on above: Performed By: #### L 100.0100, L500.2500 #### [facility] [address] [place], [address] ALT [Catalytic activity/Vol] 19 U/L Normal <=46 [facility] Comment on above: Performed By: #### L 100.0100, L500.2500 #### [facility] [address] [place], [address] AST [Catalytic activity/Vol] 20 U/L Normal <=37 [facility] Comment on above: Performed By: #### L 100.0100, L500.2500 #### [facility] [address] [place], [address] Bilirubin [Mass/Vol] 0.38 mg/dL Normal 0.00-1.30 [facility] Comment on above: Performed By: #### L 100.0100, L500.2500 #### [facility] [address] [place], [address] BUN/CRE 31.3 RATIO High 10-20 [facility] Comment on above: Performed By: #### L 100.0100, L500.2500 #### [facility] [address] [place], [address] Calcium [Mass/Vol] 9.4 mg/dL Normal 7.6-11.0 [facility] Comment on above: Performed By: #### L 100.0100, L500.2500 #### [facility] [address] [place], [address] Chloride [Moles/Vol] 103 mmol/L Normal 98-108 [facility] Comment on above: Performed By: #### L 100.0100, L500.2500 #### [facility] [address] [place], [address] CO2 [Moles/Vol] 24.4 mmol/L Normal 21.0-32.0 [facility] Comment on above: Performed By: #### L 100.0100, L500.2500 #### [facility] [address] [place], [address] Creatinine [Mass/Vol] 0.76 mg/dL Normal 0.70-1.20 [facility] Comment on above: Performed By: #### L 100.0100, L500.2500 #### [facility] [address] [place], [address] GAP 13 Normal 5-15 [facility] Comment on above: Performed By: #### L 100.0100, L500.2500 #### [facility] [address] [place], [address] GFR/1.73 sq M.predicted among non-blacks MDRD (S/P/Bld) [Vol rate/Area] 91 mL/min/{1.73_m2} Normal >60 [facility] Comment on above: Result Comment: mL/m in/1.73m2 CKD-EPI Creatinine Equation (2020) Performed By: #### L 100.0100, L500.2500 #### [facility] [address] [place], [address] Globulin (S) [Mass/Vol] 3.2 g/dL Normal 2.2-4.2 [facility] Comment on above: Performed By: #### L 100.0100, L500.2500 #### [facility] [address] [place], [address] Glucose [Mass/Vol] 115 mg/dL High 70-99 [facility] Comment on above: Performed By: #### L 100.0100, L500.2500 #### [facility] [address] [place], [address] Potassium [Moles/Vol] 3.9 mmol/L Normal 3.3-5.1 [facility] Comment on above: Performed By: #### L 100.0100, L500.2500 #### [facility] [address] [place], [address] Sodium [Moles/Vol] 140 mmol/L Normal 133-145 [facility] Comment on above: Performed By: #### L 100.0100, L500.2500 #### [facility] [address] [place], [address] T PROT 7.3 g/dL Normal 5.9-8.4 [facility] Comment on above: Performed By: #### L 100.0100, L500.2500 #### [facility] [address] [place], [address] Urea nitrogen [Mass/Vol] 24 mg/dL High 4-19 [facility] Comment on above: Performed By: #### L 100.0100, L500.2500 #### [facility] [address] [place], [address] Eosinophil percentageOrdered By: Vinod Walker on 09-13-2024 Eosinophils/100 WBC (Bld) 6.5 % High 0-5 [facility] Erythrocyte distribution wid th ratioOrdered By: Vinod Walker on 09-13-2024 Erythrocyte distribution width (RBC) [Ratio] 13.7 % 11.6-14.6 [facility] Erythrocyte distribution wid th standard deviationOrdered By: Vinod Walker on 09-13-2024 Erythrocyte distribution width (RBC) [Ratio] 50.8 fl High 35.1-43.9 [facility] Glomerular filtration rate ( GFR) estimation/1.73 sq m using serum, plasma, or whole bOrdered By: Vinod Walker on 09-13-2024 GFR/1.73 sq M.predicted among non-blacks MDRD (S/P/Bld) [Vol rate/Area] 91 mL/min/{1.73_m2} >60 [facility] Comment on above: mL/min/1.73m2 CKD-EP I Creatinine Equation (2020) Hematocrit Auto (Bld) [Volum e fraction]Ordered By: Vinod Walker on 09-13-2024 Hematocrit (Bld) [Volume fraction] 39.3 % Low 40-54 [facility] Hemoglobin measurementOrdere d By: Vinod Walker on 09-13-2024 Hemoglobin (Bld) [Mass/Vol] 13.0 g/dL 13.0-16.5 [facility] Immature granulocytes/100 WB C Auto (Bld)Ordered By: Vinod Walker on 09-13-2024 Immature granulocytes/100 WBC (Bld) 0.900 % 0.0-0.9 [facility] Comment on above: IG% - Immature Granu locytes (promyelocytes, myelocytes and metamyelocytes) > 1% indicates that a LEFT SHIFT is Present. Laboratory - Chemistry and C hemistry - challengeOrdered By: Vinod Walker on 09-13-2024 AST [Catalytic activity/Vol] 20 U/L <38 [facility] MCV (mean corpuscular volume ) determinationOrdered By: Vinod Walker on 09-13-2024 MCV (RBC) [Entitic vol] 100.8 fL High 80-94 [facility] Mean corpuscular hemoglobin (MCH) determinationOrdered By: Vinod Walker 09-13-2024 MCH (RBC) [Entitic mass] 33.3 pg High 27.0-32.0 [facility] Mean corpuscular hemoglobin concentration (MCHC) determinationOrdered By: Vinod Walker 09-13-2024 MCHC (RBC) [Mass/Vol] 33.1 g/dL 32-36 [facility] Mean platelet volume determi nationOrdered By: Vinod Walker 09-13-2024 Platelet mean volume (Bld) [Entitic vol] 13.0 fL High 6.2-12.0 [facility] Monocyte percentageOrdered B y: Vinod Walker on 09-13-2024 Monocytes/100 WBC (Bld) 9.0 % 0-10 [facility] Neutrophil percentageOrdered By: Vinod Walker on 09-13-2024 Neutrophils/100 WBC (Bld) 63.8 % 47-70 [facility] Nucleated red blood cell per centageOrdered By: Vinod Walker 09-13-2024 Nucleated RBC/100 WBC (Bld) [Ratio] 0 % 0-5 [facility] Platelet countOrdered By: Curtis Walker on 09-13-2024 Platelets (Bld) [#/Vol] 173 10*3/uL 150-450 [facility] Potassium measurement (mass/ volume)Ordered By: Vinod Walker on 09-13-2024 Potassium (Unsp spec) [Mass/Vol] 3.9 mmol/L 3.3-5.1 [facility] RBC Auto (Bld) [#/Vol]Ordere d By: Vinod Walker on 09-13-2024 RBC (Bld) [#/Vol] 3.90 10*6/uL Low 4.6-6.2 [facility] Serum creatinine measurement (mass/volume)Ordered By: Vinod Walker 09-13-2024 Creatinine [Mass/Vol] 0.76 mg/dL 0.70-1.20 [facility] Serum globulin measurementOr dered By: Vinod Walker 09-13-2024 Globulin (S) [Mass/Vol] 3.2 g/dL 2.2-4.2 [facility] Serum glucose measurement (m ass/volume)Ordered By: Vinod Walker 09-13-2024 Glucose [Mass/Vol] 115 mg/dL High 70-99 [facility] Serum or plasma alanine sparks otransferase (ALT) measurementOrdered By: Vinod Walker 09-13-2024 ALT [Catalytic activity/Vol] 19 U/L <47 [facility] Serum or plasma albumin brittnee urement (mass/volume)Ordered By: Vinod Walker 09-13-2024 Albumin [Mass/Vol] 4.1 g/dL 3.4-4.8 [facility] Serum or plasma albumin/glob ulin mass ratioOrdered By: Vinod Walker 09-13-2024 Albumin/Globulin [Mass ratio] 1.3 {ratio} 0.9-2.4 [facility] Serum or plasma alkaline mallory sphatase measurementOrdered By: Vinod Walker 09-13-2024 ALP [Catalytic activity/Vol] 83 U/L 40-129 [facility] Serum or plasma calcium brittnee urement (mass/volume)Ordered By: Vinod Walker 09-13-2024 Calcium [Mass/Vol] 9.4 mg/dL 7.6-11.0 [facility] Serum or plasma urea nitroge n measurement (mass/volume)Ordered By: Vinod Walker 09-13-2024 Urea nitrogen [Mass/Vol] 24 mg/dL High 4-19 [facility] Sodium levelOrdered By: Vinod Walker 09-13-2024 Sodium [Moles/Vol] 140 mmol/L 133-145 [facility] TSH DL <= 0.005 mIU/L QnOrde red By: Vinod Walker on 09-13-2024 TSH Qn 1.080 uIU/mL 0.300-4.200 [facility] Thyroid Stim Hormone (TSH)on 09-13-2024 TSH 1.080 uIU/mL Normal 0.300-4.200 [facility] Comment on above: Performed By: #### L 100.0100, L500.2500 #### [facility] [address] [place], [address] Total proteinOrdered By: Vinod Walker on 09-13-2024 Protein [Mass/Vol] 7.3 g/dL 5.9-8.4 [facility] Vitamin D,25 Hydroxyon 09-13 Vitamin D 25-OH 52.8 ng/mL Normal 30-100 [facility] Comment on above: Result Comment: Lizz min D Status Deficiency: <20 ng/mL (50nmol/L) Insufficiency: 20-30 ng/mL (50-75 nmol/L) Sufficiency: 30-100 ng/mL (75-250 nmol/L) Toxicity: >100 ng/mL (>250 nmol/L) Performed By: #### L 100.0100, L500.2500 #### [facility] [address] [place], [place], [address] White blood cell (WBC) count Ordered By: Vinod Walker on 09-13-2024 WBC (Bld) [#/Vol] 8.2 10*3/uL 4.4-11.0 [facility] Basic Metabolic Profile (BMP )on 05-31-2024 BUN/CRE 26.6 RATIO High 10-20 [facility] Comment on above: Performed By: #### L 100.0100, L500.2500 #### [facility] [address] [place], [address] CA,Total 9.1 mg/dL Normal 8.5-10.1 [facility] Comment on above: Performed By: #### L 100.0100, L500.2500 #### [facility] [address] [place], [address] Chloride [Moles/Vol] 109 mmol/L High 98-107 [facility] Comment on above: Performed By: #### L 100.0100, L500.2500 #### [facility] [address] [place], [address] CO2 [Moles/Vol] 27.0 mmol/L Normal 21.0-32.0 [facility] Comment on above: Performed By: #### L 100.0100, L500.2500 #### [facility] [address] [place], [address] Creatinine [Mass/Vol] 0.83 mg/dL Normal 0.70-1.30 [facility] Comment on above: Result Comment: The validity of the calculated GFR GFRAA in patients over 70 years has not been determined. Clinical correlation is essential. Performed By: #### L 100.0100, L500.2500 #### [facility] [address] [place], [address] ECRCL 87.46 ml/min Normal [facility] Comment on above: Performed By: #### L 100.0100, L500.2500 #### [facility] [address] [place], [address] EST GFR - AA 115 mL/min Normal >60 [facility] Comment on above: Result Comment: Afri can [place] GFR Calc Performed By: #### L 100.0100, L500.2500 #### [facility] [address] [place], [address] GAP 4 Low 5-15 [facility] Comment on above: Performed By: #### L 100.0100, L500.2500 #### [facility] [address] [place], [address] GFR/1.73 sq M.predicted among non-blacks MDRD (S/P/Bld) [Vol rate/Area] 95 mL/min/{1.73_m2} Normal >60 [facility] Comment on above: Result Comment: Non- GFR Calc Performed By: #### L 100.0100, L500.2500 #### [facility] [address] [place], [address] Glucose [Mass/Vol] 107 mg/dL High 74-106 [facility] Comment on above: Result Comment: Fast ing Glucose result from 100 to 125 mg/dL suggests IMPAIRED HOMEOSTASIS per A.D.A. criteria. Performed By: #### L 100.0100, L500.2500 #### [facility] [address] [place], [address] Potassium [Moles/Vol] 3.7 mmol/L Normal 3.5-5.1 [facility] Comment on above: Performed By: #### L 100.0100, L500.2500 #### [facility] [address] [place], [address] Sodium [Moles/Vol] 140 mmol/L Normal 136-145 [facility] Comment on above: Performed By: #### L 100.0100, L500.2500 #### [facility] [address] [place], [address] Urea nitrogen [Mass/Vol] 22 mg/dL High 7-18 [facility] Comment on above: Performed By: #### L 100.0100, L500.2500 #### [facility] [address] [place], [address] CBC W/Diff, Automatedon - Absolute Lymph 1.65 X10 3/uL Normal 0.83-4.51 [facility] Comment on above: Performed By: #### L 100.0100, L500.2500 #### [facility] [address] [place], [address] Absolute Neut 4.8 X10 3/uL Normal 2.0-7.7 [facility] Comment on above: Performed By: #### L 100.0100, L500.2500 #### [facility] [address] [place], [address] Basophils/100 WBC (Bld) 0.4 % Normal 0-1 [facility] Comment on above: Performed By: #### L 100.0100, L500.2500 #### [facility] [address] [place], [address] Eosinophils/100 WBC (Bld) 4.0 % Normal 0-5 [facility] Comment on above: Performed By: #### L 100.0100, L500.2500 #### [facility] [address] [place], [address] Erythrocyte distribution width (RBC) [Ratio] 13.2 % Normal 11.6-14.6 [facility] Comment on above: Performed By: #### L 100.0100, L500.2500 #### [facility] [address] [place], [address] Hematocrit (Bld) [Volume fraction] 34.3 % Low 40-54 [facility] Comment on above: Performed By: #### L 100.0100, L500.2500 #### [facility] [address] [place], [address] Hemoglobin (Bld) [Mass/Vol] 11.5 g/dL Low 13.0-16.5 [facility] Comment on above: Performed By: #### L 100.0100, L500.2500 #### [facility] [address] [place], [address] IG% 1.100 High 0.0-0.9 [facility] Comment on above: Result Comment: IG% - Immature Granulocytes (promyelocytes, myelocytes and metamyelocytes) > 1% indicates that a LEFT SHIFT is Present. Performed By: #### L 100.0100, L500.2500 #### [facility] [address] [place], [address] Lymphocytes/100 WBC (Bld) 21.8 % Normal 19-41 [facility] Comment on above: Performed By: #### L 100.0100, L500.2500 #### [facility] [address] [place], [address] MCH (RBC) [Entitic mass] 33.9 pg High 27.0-32.0 [facility] Comment on above: Performed By: #### L 100.0100, L500.2500 #### [facility] [address] [place], [address] MCHC (RBC) [Mass/Vol] 33.5 g/dL Normal 32-36 [facility] Comment on above: Performed By: #### L 100.0100, L500.2500 #### [facility] [address] [place], [address] MCV (RBC) [Entitic vol] 101.2 fL High 80-94 [facility] Comment on above: Performed By: #### L 100.0100, L500.2500 #### [facility] [address] [place], [address] Monocytes/100 WBC (Bld) 10.2 % High 0-10 [facility] Comment on above: Performed By: #### L 100.0100, L500.2500 #### [facility] [address] [place], [address] Neutrophils/100 WBC (Bld) 62.5 % Normal 47-70 [facility] Comment on above: Performed By: #### L 100.0100, L500.2500 #### [facility] [address] [place], [address] Nucleated RBC (Bld) [#/Vol] 0 10*3/uL Normal 0-5 [facility] Comment on above: Performed By: #### L 100.0100, L500.2500 #### [facility] [address] [place], [address] Platelet mean volume (Bld) [Entitic vol] 11.5 fL Normal 6.2-12.0 [facility] Comment on above: Performed By: #### L 100.0100, L500.2500 #### [facility] [address], [address] Platelets (Bld) [#/Vol] 173 10*3/uL Normal 150-450 [facility] Comment on above: Performed By: #### L 100.0100, L500.2500 #### [facility] [address] [place], [address] RBC (Bld) [#/Vol] 3.39 10*6/uL Low 4.6-6.2 [facility] Comment on above: Performed By: #### L 100.0100, L500.2500 #### [facility] [address] [place], [address] RDW SD 49.2 fl High 35.1-43.9 [facility] Comment on above: Performed By: #### L 100.0100, L500.2500 #### [facility] [address] [place], [address] WBC (Bld) [#/Vol] 7.6 10*3/uL Normal 4.4-11.0 [facility] Comment on above: Performed By: #### L 100.0100, L500.2500 #### [facility] [address] [place], [address] Discharge Instructionon 05-19 Discharge Instruction [facility] Records Department [address] [place] [address] Instructions for Home/Discharge Instructions 05/31/24 1055 MR#: [id number] Acct: [id number] Name: ANTOINE PEREZ Rep #: [id number] : 1945 78 From: Keith Kuhn MD PCP: Dr. Vinod Walker MD Status:ADM IN Discharge Instructions DC O2, CPAP, BIPAP needs Home O2 Discharge instructions: No Follow Up Care Test Results: Test results from this visit will be discussed in further detail at your follow-up appointment, if applicable. Discharge Plan Admission Admit Date/Time: 05/26/24 16:30 Primary Reason for Your Visit: Outside surgical site infection/abscess Attending Provider: Keith Kuhn Primary Care Provider: Vinod Walker [employer] Providers: Fabiola Lowery; Ángel Quiroz; Jluis Carter Instructions Additional Instructions / Restrictions: Advised gdgb-[id number] probiotic, lactobacillus 1 tablet twice daily for [...] Within 1 Week (In the wound center) Vinod Walker Chi, MD [Primary Care Provider] - Within 2 Weeks Disposition Disposition (needs filled in before D/C Order can be placed): Home, Self Care 05/31/24 3530 Keith Kuhn MD CC: Dr. Ángel Quiroz MD; Dr. Fabiola Lowery MD; Dr. Jluis Carter MD; Dr. Vinod Walker MD Signed Normal [facility] Basic Metabolic Profile (BMP )on 05-30-2024 BUN/CRE 26.6 RATIO High 10-20 [facility] Comment on above: Performed By: #### L 100.0100, L500.2500 #### [facility] [address] [place], [address] CA,Total 9.0 mg/dL Normal 8.5-10.1 [facility] Comment on above: Performed By: #### L 100.0100, L500.2500 #### [facility] [address] [place], [address] Chloride [Moles/Vol] 110 mmol/L High 98-107 [facility] Comment on above: Performed By: #### L 100.0100, L500.2500 #### [facility] [address] [place], [address] CO2 [Moles/Vol] 27.0 mmol/L Normal 21.0-32.0 [facility] Comment on above: Performed By: #### L 100.0100, L500.2500 #### [facility] [address] [place], [address] Creatinine [Mass/Vol] 0.79 mg/dL Normal 0.70-1.30 [facility] Comment on above: Result Comment: The validity of the calculated GFR GFRAA in patients over 70 years has not been determined. Clinical correlation is essential. Performed By: #### L 100.0100, L500.2500 #### [facility] [address] [place], [address] ECRCL 90.74 ml/min Normal [facility] Comment on above: Performed By: #### L 100.0100, L500.2500 #### [facility] [address] [place], [address] EST GFR - AA 122 mL/min Normal >60 [facility] Comment on above: Result Comment: Afri can [place] GFR Calc Performed By: #### L 100.0100, L500.2500 #### [facility] [address] [place], [address] GAP 4 Low 5-15 [facility] Comment on above: Performed By: #### L 100.0100, L500.2500 #### [facility] [address] [place], [address] GFR/1.73 sq M.predicted among non-blacks MDRD (S/P/Bld) [Vol rate/Area] 100 mL/min/{1.73_m2} Normal >60 [facility] Comment on above: Result Comment: Non- GFR Calc Performed By: #### L 100.0100, L500.2500 #### [facility] [address] [place], [address] Glucose [Mass/Vol] 102 mg/dL Normal 74-106 [facility] Comment on above: Result Comment: Fast ing Glucose result from 100 to 125 mg/dL suggests IMPAIRED HOMEOSTASIS per A.D.A. criteria. Performed By: #### L 100.0100, L500.2500 #### [facility] [address] [place], [address] Potassium [Moles/Vol] 3.7 mmol/L Normal 3.5-5.1 [facility] Comment on above: Performed By: #### L 100.0100, L500.2500 #### [facility] [address] [place], [address] Sodium [Moles/Vol] 140 mmol/L Normal 136-145 [facility] Comment on above: Performed By: #### L 100.0100, L500.2500 #### [facility] [address] [place], [address] Urea nitrogen [Mass/Vol] 21 mg/dL High 7-18 [facility] Comment on above: Performed By: #### L 100.0100, L500.2500 #### [facility] [address] [place], [address] CBC W/Diff, Automatedon 05-19 Absolute Lymph 1.58 X10 3/uL Normal 0.83-4.51 [facility] Comment on above: Performed By: #### L 100.0100, L500.2500 #### [facility] [address] [place], [address] Absolute Neut 3.9 X10 3/uL Normal 2.0-7.7 [facility] Comment on above: Performed By: #### L 100.0100, L500.2500 #### [facility] [address] [place], [address] Basophils/100 WBC (Bld) 0.3 % Normal 0-1 [facility] Comment on above: Performed By: #### L 100.0100, L500.2500 #### [facility] [address] [place], [address] Eosinophils/100 WBC (Bld) 4.2 % Normal 0-5 [facility] Comment on above: Performed By: #### L 100.0100, L500.2500 #### [facility] [address] [place], [address] Erythrocyte distribution width (RBC) [Ratio] 13.2 % Normal 11.6-14.6 [facility] Comment on above: Performed By: #### L 100.0100, L500.2500 #### [facility] [address] [place], [address] Hematocrit (Bld) [Volume fraction] 34.4 % Low 40-54 [facility] Comment on above: Performed By: #### L 100.0100, L500.2500 #### [facility] [address] [place], [address] Hemoglobin (Bld) [Mass/Vol] 11.2 g/dL Low 13.0-16.5 [facility] Comment on above: Performed By: #### L 100.0100, L500.2500 #### [facility] [address] [place], [address] IG% 0.600 Normal 0.0-0.9 [facility] Comment on above: Result Comment: IG% - Immature Granulocytes (promyelocytes, myelocytes and metamyelocytes) > 1% indicates that a LEFT SHIFT is Present. Performed By: #### L 100.0100, L500.2500 #### [facility] [address] [place], [address] Lymphocytes/100 WBC (Bld) 23.9 % Normal 19-41 [facility] Comment on above: Performed By: #### L 100.0100, L500.2500 #### [facility] [address] [place], [address] MCH (RBC) [Entitic mass] 33.2 pg High 27.0-32.0 [facility] Comment on above: Performed By: #### L 100.0100, L500.2500 #### [facility] [address] [place], [address] MCHC (RBC) [Mass/Vol] 32.6 g/dL Normal 32-36 [facility] Comment on above: Performed By: #### L 100.0100, L500.2500 #### [facility] [address] [place], [address] MCV (RBC) [Entitic vol] 102.1 fL High 80-94 [facility] Comment on above: Performed By: #### L 100.0100, L500.2500 #### [facility] [address] [place], [address] Monocytes/100 WBC (Bld) 11.8 % High 0-10 [facility] Comment on above: Performed By: #### L 100.0100, L500.2500 #### [facility] [address] [place], [address] Neutrophils/100 WBC (Bld) 59.2 % Normal 47-70 [facility] Comment on above: Performed By: #### L 100.0100, L500.2500 #### [facility] [address] [place], [address] Nucleated RBC (Bld) [#/Vol] 0 10*3/uL Normal 0-5 [facility] Comment on above: Performed By: #### L 100.0100, L500.2500 #### [facility] [address] [place], [address] Platelet mean volume (Bld) [Entitic vol] 11.6 fL Normal 6.2-12.0 [facility] Comment on above: Performed By: #### L 100.0100, L500.2500 #### [facility] [address] [place], [address] Platelets (Bld) [#/Vol] 173 10*3/uL Normal 150-450 [facility] Comment on above: Performed By: #### L 100.0100, L500.2500 #### [facility] [address] [place], [address] RBC (Bld) [#/Vol] 3.37 10*6/uL Low 4.6-6.2 [facility] Comment on above: Performed By: #### L 100.0100, L500.2500 #### [facility] [address] [place], [address] RDW SD 49.9 fl High 35.1-43.9 [facility] Comment on above: Performed By: #### L 100.0100, L500.2500 #### [facility] [address] [place], [address] WBC (Bld) [#/Vol] 6.6 10*3/uL Normal 4.4-11.0 [facility] Comment on above: Performed By: #### L 100.0100, L500.2500 #### [facility] [address] [place], [address] Vancomycin, Random Levelon 0 - VANCO, RANDOM 16.0 ug/mL High 0.0-15.0 [facility] Comment on above: Result Comment: VANC OMYCIN STANDARD DRUG THERAPY: CRITICAL VALUE IS > 15.0 mg/L VANCOMYCIN HIGH INTENSITY THERAPY: CRITICAL VALUE IS > 20.0 mg/L PLEASE CONTACT PHARMACY SERVICES (#[id number]) FOR INTERPRETATION OF RESULTS. THIS RESULT DOES NOT REPRESENT A PEAK OR TROUGH LEVEL FOR THIS DRUG. Performed By: #### L 501.8850 #### [facility] [address] [place], [address] VANCO, RANDOM 21.9 ug/mL High 0.0-15.0 [facility] Comment on above: Result Comment: VANC OMYCIN STANDARD DRUG THERAPY: CRITICAL VALUE IS > 15.0 mg/L VANCOMYCIN HIGH INTENSITY THERAPY: CRITICAL VALUE IS > 20.0 mg/L PLEASE CONTACT PHARMACY SERVICES (#[id number]) FOR INTERPRETATION OF RESULTS. THIS RESULT DOES NOT REPRESENT A PEAK OR TROUGH LEVEL FOR THIS DRUG. Performed By: #### L 7000.5800 #### [facility] [address] [place], [address] Wound Cultureon 05-30-2024 WC #1 Possible skin contamination, further Identification and sensitivity will be performed only by physician's request. Wound Culture #2 Previously Actinomyces odontolyticus. Susceptibility not normally performed on this organism. Coag Negative Staph Amount Growth Very Rare Schaalia odontolyticus Schaalia odontolyticus Normal [facility] Comment on above: Performed By: #### L 500.4050, L100.0100 #### [facility] [address] [place], [address] Basic Metabolic Profile (BMP )on 05-29-2024 BUN/CRE 25.1 RATIO High 10-20 [facility] Comment on above: Performed By: #### L 500.2500, L100.0100 #### [facility] [address] [place], [address] CA,Total 8.9 mg/dL Normal 8.5-10.1 [facility] Comment on above: Performed By: #### L 500.2500, L100.0100 #### [facility] [address] [place], [address] Chloride [Moles/Vol] 110 mmol/L High 98-107 [facility] Comment on above: Performed By: #### L 500.2500, L100.0100 #### [facility] [address] [place], [address] CO2 [Moles/Vol] 27.0 mmol/L Normal 21.0-32.0 [facility] Comment on above: Performed By: #### L 500.2500, L100.0100 #### [facility] [address] [place], [address] Creatinine [Mass/Vol] 0.84 mg/dL Normal 0.70-1.30 [facility] Comment on above: Result Comment: The validity of the calculated GFR GFRAA in patients over 70 years has not been determined. Clinical correlation is essential. Performed By: #### L 500.2500, L100.0100 #### [facility] [address] [place], [address] ECRCL 86.05 ml/min Normal [facility] Comment on above: Performed By: #### L 500.2500, L100.0100 #### [facility] [address] [place], [address] EST GFR - AA 114 mL/min Normal >60 [facility] Comment on above: Result Comment: Afri can [place] GFR Calc Performed By: #### L 500.2500, L100.0100 #### [facility] [address] [place], [address] GAP 3 Low 5-15 [facility] [facility] Comment on above: Performed By: #### L 500.2500, L100.0100 #### [facility] [address] [place], [address] GFR/1.73 sq M.predicted among non-blacks MDRD (S/P/Bld) [Vol rate/Area] 94 mL/min/{1.73_m2} Normal >60 [facility] Comment on above: Result Comment: Non- GFR Calc Performed By: #### L 500.2500, L100.0100 #### [facility] [address] [place], [address] Glucose [Mass/Vol] 113 mg/dL High 74-106 [facility] Comment on above: Result Comment: Fast ing Glucose result from 100 to 125 mg/dL suggests IMPAIRED HOMEOSTASIS per A.D.A. criteria. Performed By: #### L 500.2500, L100.0100 #### [facility] [address] [place], [address] Potassium [Moles/Vol] 3.8 mmol/L Normal 3.5-5.1 [facility] Comment on above: Performed By: #### L 500.2500, L100.0100 #### [facility] [address] [place], [address] Sodium [Moles/Vol] 140 mmol/L Normal 136-145 [facility] Comment on above: Performed By: #### L 500.2500, L100.0100 #### [facility] [address] [place], [address] Urea nitrogen [Mass/Vol] 21 mg/dL High 7-18 [facility] Comment on above: Performed By: #### L 500.2500, L100.0100 #### [facility] [address] [place], [address] CBC W/Diff, Automatedon 05-19-2024 Absolute Lymph 1.58 X10 3/uL Normal 0.83-4.51 [facility] Comment on above: Performed By: #### L 500.2500, L100.0100 #### [facility] [address] [place], [address] Absolute Neut 4.1 X10 3/uL Normal 2.0-7.7 [facility] Comment on above: Performed By: #### L 500.2500, L100.0100 #### [facility] [address] [place], [address] Basophils/100 WBC (Bld) 0.4 % Normal 0-1 [facility] Comment on above: Performed By: #### L 500.2500, L100.0100 #### [facility] [address] [place], [address] Eosinophils/100 WBC (Bld) 4.9 % Normal 0-5 [facility] Comment on above: Performed By: #### L 500.2500, L100.0100 #### [facility] [address] [place], [address] Erythrocyte distribution width (RBC) [Ratio] 13.3 % Normal 11.6-14.6 [facility] Comment on above: Performed By: #### L 500.2500, L100.0100 #### [facility] [address] [place], [address] Hematocrit (Bld) [Volume fraction] 33.7 % Low 40-54 [facility] Comment on above: Performed By: #### L 500.2500, L100.0100 #### [facility] [address] [place], [address] Hemoglobin (Bld) [Mass/Vol] 11.2 g/dL Low 13.0-16.5 [facility] Comment on above: Performed By: #### L 500.2500, L100.0100 #### [facility] [address] [place], [address] IG% 0.600 Normal 0.0-0.9 [facility] Comment on above: Result Comment: IG% - Immature Granulocytes (promyelocytes, myelocytes and metamyelocytes) > 1% indicates that a LEFT SHIFT is Present. Performed By: #### L 500.2500, L100.0100 #### [facility] [address] [place], [address] Lymphocytes/100 WBC (Bld) 23.4 % Normal 19-41 [facility] Comment on above: Performed By: #### L 500.2500, L100.0100 #### [facility] [address] [place], [address] MCH (RBC) [Entitic mass] 33.8 pg High 27.0-32.0 [facility] Comment on above: Performed By: #### L 500.2500, L100.0100 #### [facility] [address] [place], [address] MCHC (RBC) [Mass/Vol] 33.2 g/dL Normal 32-36 [facility] Comment on above: Performed By: #### L 500.2500, L100.0100 #### [facility] [address] [place], [address] MCV (RBC) [Entitic vol] 101.8 fL High 80-94 [facility] Comment on above: Performed By: #### L 500.2500, L100.0100 #### [facility] [address] [place], [address] Monocytes/100 WBC (Bld) 10.4 % High 0-10 [facility] Comment on above: Performed By: #### L 500.2500, L100.0100 #### [facility] [address] [place], [address] Neutrophils/100 WBC (Bld) 60.3 % Normal 47-70 [facility] Comment on above: Performed By: #### L 500.2500, L100.0100 #### [facility] [address] [place], [address] Nucleated RBC (Bld) [#/Vol] 0 10*3/uL Normal 0-5 [facility] Comment on above: Performed By: #### L 500.2500, L100.0100 #### [facility] [address] [place], [address] Platelet mean volume (Bld) [Entitic vol] 12.0 fL Normal 6.2-12.0 [facility] Comment on above: Performed By: #### L 500.2500, L100.0100 #### [facility] [address] [place], [address] Platelets (Bld) [#/Vol] 169 10*3/uL Normal 150-450 [facility] Comment on above: Performed By: #### L 500.2500, L100.0100 #### [facility] [address] [place], [address] RBC (Bld) [#/Vol] 3.31 10*6/uL Low 4.6-6.2 [facility] Comment on above: Performed By: #### L 500.2500, L100.0100 #### [facility] [address] [place], [address] RDW SD 50.0 fl High 35.1-43.9 [facility] Comment on above: Performed By: #### L 500.2500, L100.0100 #### [facility] [address] [place], [address] WBC (Bld) [#/Vol] 6.8 10*3/uL Normal 4.4-11.0 [facility] Comment on above: Performed By: #### L 500.2500, L100.0100 #### [facility] [address] [place], [address] Consultation - Surgicalon Consultation - Surgical [facility] Medical Records Department [address] [place] [address] Consultation - Surgical 05/29/24 1406 MR#: [id number] Acct: [id number] Name: ANTOINE PEREZ Rep #: [id number] : 1945 78 From: Ángel Quiroz MD PCP: Dr. Vinod Walker MD Status:[id number] Assessment Plan Assessment/Plan (1) Abscess: PLAN: Patient [...] incise or drain. Ángel Quiroz MD Pager: [facility] [address] [place] [address], [address] [place] [address] Office: HPI Consult Data Date of Consult: 05/29/24 HPI Narrative HPI Narrative: ANTOINE PEREZ, is a 78 M who presents with facial abscess. The patient reports that he had a biopsy done of his skin lesion and this got infected. The patient had this area incised on Friday. He has been in the hospital since on IV antibiotics. [facility] Medical History Wears hearing aid Depression Alcohol [...] History (Updated 05/26/24 @ 17:[address] aFbiola Lowery MD) household members: spouse Smoking Status: Former smoker how long ago did patient quit smoking: Quit 30 yrs prior (05/24/24) with max 1 ppd since teen until quit. alcohol intake: current alcohol intake frequen (more content not included)... Normal [facility] Vancomycin, Trough Levelon 0 05-29-2024 VANCO, TROUGH 29.0 ug/mL High 5.0-15.0 [facility] Comment on above: Order Comment: Comme nts: Trough to be drawn 30 mins prior to scheduled dose 1999 Result Comment: VANC OMYCIN STANDARED DRUG THERAPY TROUGH LEVEL: 5.0 - 15.0 mg/L VANCOMYCIN HIGH INTENSITY THERAPY TROUGH LEVEL: 15.0 - 20.0 mg/L High Intensity therapy recommended for serious life threatening infections include: - Meningitis -Endocarditis -Pneumonia (Ventilator/Healtcare Associated) -Sepsis PLEASE CONTACT PHARMACY SERVICES (#[id number]) FOR INTERPRETATION OF RESULTS. Performed By: #### L 501.8820 #### [facility] [address] [place], [address] CBC-Complete Blood Cnt No Di ffon 05-28-2024 Erythrocyte distribution width (RBC) [Ratio] 13.5 % Normal 11.6-14.6 [facility] Comment on above: Performed By: #### L 500.4050, L501.5200, L501.2300, L100.0500 #### [facility] [address] [place], [address] Hematocrit (Bld) [Volume fraction] 34.8 % Low 40-54 [facility] Comment on above: Performed By: #### L 500.4050, L501.5200, L501.2300, L100.0500 #### [facility] [address] [place], [address] Hemoglobin (Bld) [Mass/Vol] 11.5 g/dL Low 13.0-16.5 [facility] Comment on above: Performed By: #### L 500.4050, L501.5200, L501.2300, L100.0500 #### [facility] [address] [place], [address] MCH (RBC) [Entitic mass] 33.7 pg High 27.0-32.0 [facility] Comment on above: Performed By: #### L 500.4050, L501.5200, L501.2300, L100.0500 #### [facility] [address] [place], [address] MCHC (RBC) [Mass/Vol] 33.0 g/dL Normal 32-36 [facility] Comment on above: Performed By: #### L 500.4050, L501.5200, L501.2300, L100.0500 #### [facility] [address] [place], [address] MCV (RBC) [Entitic vol] 102.1 fL High 80-94 [facility] Comment on above: Performed By: #### L 500.4050, L501.5200, L501.2300, L100.0500 #### [facility] [address] [place], [address] Platelet mean volume (Bld) [Entitic vol] 12.0 fL Normal 6.2-12.0 [facility] Comment on above: Performed By: #### L 500.4050, L501.5200, L501.2300, L100.0500 #### [facility] [address] [place], [address] Platelets (Bld) [#/Vol] 160 10*3/uL Normal 150-450 [facility] Comment on above: Performed By: #### L 500.4050, L501.5200, L501.2300, L100.0500 #### [facility] [address] [place], [address] RBC (Bld) [#/Vol] 3.41 10*6/uL Low 4.6-6.2 [facility] Comment on above: Performed By: #### L 500.4050, L501.5200, L501.2300, L100.0500 #### [facility] [address] [place], [address] RDW SD 50.8 fl High 35.1-43.9 [facility] Comment on above: Performed By: #### L 500.4050, L501.5200, L501.2300, L100.0500 #### [facility] [address] [place], [address] WBC (Bld) [#/Vol] 6.6 10*3/uL Normal 4.4-11.0 [facility] Comment on above: Performed By: #### L 500.4050, L501.5200, L501.2300, L100.0500 #### [facility] [address] [place], [address] Comprehensive Metabolic Prof ilon 05-28-2024 Albumin [Mass/Vol] 3.0 g/dL Low 3.2-5.0 [facility] Comment on above: Performed By: #### L 500.4050, L100.0100 #### [facility] [address] [place], [address] Albumin/Globulin [Mass ratio] 0.8 {ratio} Low 0.9-2.4 [facility] Comment on above: Performed By: #### L 500.4050, L100.0100 #### [facility] [address] [place], [address] ALK P 74 U/L Normal 45-117 [facility] Comment on above: Performed By: #### L 500.4050, L100.0100 #### [facility] [address] [place], [address] ALT [Catalytic activity/Vol] 22 U/L Normal 16-61 [facility] Comment on above: Performed By: #### L 500.4050, L100.0100 #### [facility] [address] [place], [address] AST [Catalytic activity/Vol] 15 U/L Normal 15-37 [facility] Comment on above: Performed By: #### L 500.4050, L100.0100 #### [facility] [address] [place], [address] Bilirubin [Mass/Vol] 0.50 mg/dL Normal 0.20-1.00 [facility] Comment on above: Result Comment: For patients on eltrombopag therapy, use of Dimension Torreon TBIL is not recommended. Performed By: #### L 500.4050, L100.0100 #### [facility] [address] [place], [address] BUN/CRE 25.9 RATIO High 10-20 [facility] Comment on above: Performed By: #### L 500.4050, L100.0100 #### [facility] [address] [place], [address] CA,Total 8.9 mg/dL Normal 8.5-10.1 [facility] Comment on above: Performed By: #### L 500.4050, L100.0100 #### [facility] [address] [place], [address] Chloride [Moles/Vol] 111 mmol/L High 98-107 [facility] Comment on above: Performed By: #### L 500.4050, L100.0100 #### [facility] [address] [place], [address] CO2 [Moles/Vol] 25.0 mmol/L Normal 21.0-32.0 [facility] Comment on above: Performed By: #### L 500.4050, L100.0100 #### [facility] [address] [place], [address] Creatinine [Mass/Vol] 0.77 mg/dL Normal 0.70-1.30 [facility] Comment on above: Result Comment: The validity of the calculated GFR GFRAA in patients over 70 years has not been determined. Clinical correlation is essential. Performed By: #### L 500.4050, L100.0100 #### [facility] [address] [place], [address] ECRCL 90.36 ml/min Normal [facility] Comment on above: Performed By: #### L 500.4050, L100.0100 #### [facility] [address] [place], [address] EST GFR - AA 125 mL/min Normal >60 [facility] Comment on above: Result Comment: Afri can [place] GFR Calc Performed By: #### L 500.4050, L100.0100 #### [facility] [address] [place], [address] GAP 4 Low 5-15 [facility] Comment on above: Performed By: #### L 500.4050, L100.0100 #### [facility] [address] [place], [address] GFR/1.73 sq M.predicted among non-blacks MDRD (S/P/Bld) [Vol rate/Area] 103 mL/min/{1.73_m2} Normal >60 [facility] Comment on above: Result Comment: Non- GFR Calc Performed By: #### L 500.4050, L100.0100 #### [facility] [address] [place], [address] Globulin (S) [Mass/Vol] 3.8 g/dL Normal 2.2-4.2 [facility] Comment on above: Performed By: #### L 500.4050, L100.0100 #### [facility] [address] [place], [address] Glucose [Mass/Vol] 115 mg/dL High 74-106 [facility] Comment on above: Result Comment: Fast ing Glucose result from 100 to 125 mg/dL suggests IMPAIRED HOMEOSTASIS per A.D.A. criteria. Performed By: #### L 500.4050, L100.0100 #### [facility] [address] [place], [address] Potassium [Moles/Vol] 4.1 mmol/L Normal 3.5-5.1 [facility] Comment on above: Performed By: #### L 500.4050, L100.0100 #### [facility] [address] [place], [address] Sodium [Moles/Vol] 140 mmol/L Normal 136-145 [facility] Comment on above: Performed By: #### L 500.4050, L100.0100 #### [facility] [address] [place], [address] T PROT 6.8 g/dL Normal 6.4-8.2 [facility] Comment on above: Performed By: #### L 500.4050, L100.0100 #### [facility] [address] [place], [address] Urea nitrogen [Mass/Vol] 20 mg/dL High 7-18 [facility] Comment on above: Performed By: #### L 500.4050, L100.0100 #### [facility] [address] [place], [address] M8200.1000on 05-28-2024 M8200.1000 Normal Reference Ran ge = Negative MRSA DNA Nose Ql PADDY+probe GeneXpert Instrument, PCR method MRSA PCR MRSA NEGATIVE * This is an amended result. * A prior result that was reported as final has been changed. 05/29/24 0811 by TAVON [facility] Comment on above: Performed By: #### L 100.0100, L500.2500 #### [facility] [address] [place], [address] Magnesiumon 05-28-2024 Magnesium [Mass/Vol] 2.4 mg/dL Normal 1.6-2.6 [facility] Comment on above: Performed By: #### L 500.4050, L100.0100 #### [facility] [address] [place], [address] Phosphoruson 05-28-2024 Phosphate [Mass/Vol] 3.9 mg/dL Normal 2.5-4.9 [facility] Comment on above: Performed By: #### L 500.4050, L100.0100 #### [facility] [address] [place], [address] CBC W/Diff, Automatedon Absolute Lymph 1.26 X10 3/uL Normal 0.83-4.51 [facility] Comment on above: Performed By: #### L 500.4050, L100.0100 #### [facility] [address] [place], [address] Absolute Neut 5.6 X10 3/uL Normal 2.0-7.7 [facility] Comment on above: Performed By: #### L 500.4050, L100.0100 #### [facility] [address] [place], [address] Basophils/100 WBC (Bld) 0.4 % Normal 0-1 [facility] Comment on above: Performed By: #### L 500.4050, L100.0100 #### [facility] [address] [place], [address] Eosinophils/100 WBC (Bld) 3.2 % Normal 0-5 [facility] Comment on above: Performed By: #### L 500.4050, L100.0100 #### [facility] [address] [place], [address] Erythrocyte distribution width (RBC) [Ratio] 13.6 % Normal 11.6-14.6 [facility] Comment on above: Performed By: #### L 500.4050, L100.0100 #### [facility] [address] [place], [address] Hematocrit (Bld) [Volume fraction] 34.5 % Low 40-54 [facility] Comment on above: Performed By: #### L 500.4050, L100.0100 #### [facility] [address] [place], [address] Hemoglobin (Bld) [Mass/Vol] 11.2 g/dL Low 13.0-16.5 [facility] Comment on above: Performed By: #### L 500.4050, L100.0100 #### [facility] [address] [place], [address] IG% 0.700 Normal 0.0-0.9 [facility] Comment on above: Result Comment: IG% - Immature Granulocytes (promyelocytes, myelocytes and metamyelocytes) > 1% indicates that a LEFT SHIFT is Present. Performed By: #### L 500.4050, L100.0100 #### [facility] [address] [place], [address] Lymphocytes/100 WBC (Bld) 15.5 % Low 19-41 [facility] Comment on above: Performed By: #### L 500.4050, L100.0100 #### [facility] [address] [place], [address] MCH (RBC) [Entitic mass] 33.4 pg High 27.0-32.0 [facility] Comment on above: Performed By: #### L 500.4050, L100.0100 #### [facility] [address] [place], [address] MCHC (RBC) [Mass/Vol] 32.5 g/dL Normal 32-36 [facility] Comment on above: Performed By: #### L 500.4050, L100.0100 #### [facility] [address] [place], [address] MCV (RBC) [Entitic vol] 103.0 fL High 80-94 [facility] Comment on above: Performed By: #### L 500.4050, L100.0100 #### [facility] [address] [place], [address] Monocytes/100 WBC (Bld) 11.9 % High 0-10 [facility] Comment on above: Performed By: #### L 500.4050, L100.0100 #### [facility] [address] [place], [address] Neutrophils/100 WBC (Bld) 68.3 % Normal 47-70 [facility] Comment on above: Performed By: #### L 500.4050, L100.0100 #### [facility] [address] [place], [address] Nucleated RBC (Bld) [#/Vol] 0 10*3/uL Normal 0-5 [facility] Comment on above: Performed By: #### L 500.4050, L100.0100 #### [facility] [address] [place], [address] Platelet mean volume (Bld) [Entitic vol] 12.4 fL High 6.2-12.0 [facility] Comment on above: Performed By: #### L 500.4050, L100.0100 #### [facility] [address] [place], [address] Platelets (Bld) [#/Vol] 149 10*3/uL Low 150-450 [facility] Comment on above: Performed By: #### L 500.4050, L100.0100 #### [facility] [address] [place], [address] RBC (Bld) [#/Vol] 3.35 10*6/uL Low 4.6-6.2 [facility] Comment on above: Performed By: #### L 500.4050, L100.0100 #### [facility] [address] [place], [address] RDW SD 51.4 fl High 35.1-43.9 [facility] Comment on above: Performed By: #### L 500.4050, L100.0100 #### [facility] [address] [place], [address] WBC (Bld) [#/Vol] 8.2 10*3/uL Normal 4.4-11.0 [facility] Comment on above: Performed By: #### L 500.4050, L100.0100 #### [facility] [address] [place], [address] Comprehensive Metabolic Prof ilon 05-27-2024 Albumin [Mass/Vol] 3.1 g/dL Low 3.2-5.0 [facility] Comment on above: Performed By: #### L 500.4050, L100.0100 #### [facility] [address] [place], [address] Albumin/Globulin [Mass ratio] 0.9 {ratio} Normal 0.9-2.4 [facility] Comment on above: Performed By: #### L 500.4050, L100.0100 #### [facility] [address] [place], [address] ALK P 78 U/L Normal 45-117 [facility] Comment on above: Performed By: #### L 500.4050, L100.0100 #### [facility] [address] [place], [address] ALT [Catalytic activity/Vol] 22 U/L Normal 16-61 [facility] Comment on above: Performed By: #### L 500.4050, L100.0100 #### [facility] [address] [place], [address] AST [Catalytic activity/Vol] 13 U/L Low 15-37 [facility] Comment on above: Performed By: #### L 500.4050, L100.0100 #### [facility] [address] [place], [address] Bilirubin [Mass/Vol] 0.40 mg/dL Normal 0.20-1.00 [facility] Comment on above: Result Comment: For patients on eltrombopag therapy, use of Dimension Torreon TBIL is not recommended. Performed By: #### L 500.4050, L100.0100 #### [facility] [address] [place], [address] BUN/CRE 32.4 RATIO High 10-20 [facility] Comment on above: Performed By: #### L 500.4050, L100.0100 #### [facility] [address] [place], [address] CA,Total 8.9 mg/dL Normal 8.5-10.1 [facility] Comment on above: Performed By: #### L 500.4050, L100.0100 #### [facility] [facility] [address] [place], [address] Chloride [Moles/Vol] 109 mmol/L High 98-107 [facility] Comment on above: Performed By: #### L 500.4050, L100.0100 #### [facility] [address] [place], [address] CO2 [Moles/Vol] 26.0 mmol/L Normal 21.0-32.0 [facility] Comment on above: Performed By: #### L 500.4050, L100.0100 #### [facility] [address] [place], [address] Creatinine [Mass/Vol] 0.68 mg/dL Low 0.70-1.30 [facility] Comment on above: Result Comment: The validity of the calculated GFR GFRAA in patients over 70 years has not been determined. Clinical correlation is essential. Performed By: #### L 500.4050, L100.0100 #### [facility] [address] [place], [address] ECRCL 90.57 ml/min Normal [facility] Comment on above: Performed By: #### L 500.4050, L100.0100 #### [facility] [address] [place], [address] EST GFR - AA 145 mL/min Normal >60 [facility] Comment on above: Result Comment: Afri can [place] GFR Calc Performed By: #### L 500.4050, L100.0100 #### [facility] [address] [place], [address] GAP 4 Low 5-15 [facility] Comment on above: Performed By: #### L 500.4050, L100.0100 #### [facility] [address] [place], [address] GFR/1.73 sq M.predicted among non-blacks MDRD (S/P/Bld) [Vol rate/Area] 120 mL/min/{1.73_m2} Normal >60 [facility] Comment on above: Result Comment: Non- GFR Calc Performed By: #### L 500.4050, L100.0100 #### [facility] [address] [place], [address] Globulin (S) [Mass/Vol] 3.5 g/dL Normal 2.2-4.2 [facility] Comment on above: Performed By: #### L 500.4050, L100.0100 #### [facility] [address] [place], [address] Glucose [Mass/Vol] 109 mg/dL High 74-106 [facility] Comment on above: Result Comment: Fast ing Glucose result from 100 to 125 mg/dL suggests IMPAIRED HOMEOSTASIS per A.D.A. criteria. Performed By: #### L 500.4050, L100.0100 #### [facility] [address] [place], [address] Potassium [Moles/Vol] 4.0 mmol/L Normal 3.5-5.1 [facility] Comment on above: Performed By: #### L 500.4050, L100.0100 #### [facility] [address] [place], [address] Sodium [Moles/Vol] 138 mmol/L Normal 136-145 [facility] Comment on above: Performed By: #### L 500.4050, L100.0100 #### [facility] [address] [place], [address] T PROT 6.6 g/dL Normal 6.4-8.2 [facility] Comment on above: Performed By: #### L 500.4050, L100.0100 #### [facility] [address] [place], [address] Urea nitrogen [Mass/Vol] 22 mg/dL High 7-18 [facility] Comment on above: Performed By: #### L 500.4050, L100.0100 #### [facility] [address] [place], [address] Gram Stainon 05-27-2024 GS Gram Stain 1+ Gram positive cocci 4+ Gram variable bridgette No Epithelial cells 2+ White Blood Cells Normal [facility] Comment on above: Performed By: #### L 500.4050, L100.0100 #### [facility] [address] [place], [address] Vancomycin, Trough Levelon 0 05-27-2024 VANCO, TROUGH 19.6 ug/mL High 5.0-15.0 [facility] Comment on above: Order Comment: Comme nts: Trough to be drawn 30 mins prior to scheduled dose Result Comment: VANC OMYCIN STANDARED DRUG THERAPY TROUGH LEVEL: 5.0 - 15.0 mg/L VANCOMYCIN HIGH INTENSITY THERAPY TROUGH LEVEL: 15.0 - 20.0 mg/L High Intensity therapy recommended for serious life threatening infections include: - Meningitis -Endocarditis -Pneumonia (Ventilator/Healtcare Associated) -Sepsis PLEASE CONTACT PHARMACY SERVICES (#[phone]) FOR INTERPRETATION OF RESULTS. Performed By: #### L 100.0100, L500.2500 #### [facility] [address] [place], [address] Basic Metabolic Profile (BMP )on 05-26-2024 BUN/CRE 29.4 RATIO High 10-20 [facility] Comment on above: Performed By: #### L 500.4050, L100.0100 #### [facility] [address] [place], [address] CA,Total 9.4 mg/dL Normal 8.5-10.1 [facility] Comment on above: Performed By: #### L 500.4050, L100.0100 #### [facility] [address] [place], [address] Chloride [Moles/Vol] 106 mmol/L Normal 98-107 [facility] Comment on above: Performed By: #### L 500.4050, L100.0100 #### [facility] [address] [place], [address] CO2 [Moles/Vol] 28.0 mmol/L Normal 21.0-32.0 [facility] Comment on above: Performed By: #### L 500.4050, L100.0100 #### [facility] [address] [place], [address] Creatinine [Mass/Vol] 0.78 mg/dL Normal 0.70-1.30 [facility] Comment on above: Result Comment: The validity of the calculated GFR GFRAA in patients over 70 years has not been determined. Clinical correlation is essential. Performed By: #### L 500.4050, L100.0100 #### [facility] [address] [place], [address] ECRCL 91.08 ml/min Normal [facility] Comment on above: Performed By: #### L 500.4050, L100.0100 #### [facility] [address] [place], [address] EST GFR - AA 123 mL/min Normal >60 [facility] Comment on above: Result Comment: Afri can [place] GFR Calc Performed By: #### L 500.4050, L100.0100 #### [facility] [address] [place], [address] GAP 3 Low 5-15 [facility] Comment on above: Performed By: #### L 500.4050, L100.0100 #### [facility] [address] [place], [address] GFR/1.73 sq M.predicted among non-blacks MDRD (S/P/Bld) [Vol rate/Area] 102 mL/min/{1.73_m2} Normal >60 [facility] Comment on above: Result Comment: Non- GFR Calc Performed By: #### L 500.4050, L100.0100 #### [facility] [address] [place], [address] Glucose [Mass/Vol] 118 mg/dL High 74-106 [facility] Comment on above: Result Comment: Fast ing Glucose result from 100 to 125 mg/dL suggests IMPAIRED HOMEOSTASIS per A.D.A. criteria. Performed By: #### L 500.4050, L100.0100 #### [facility] [address] [place], [address] Potassium [Moles/Vol] 4.2 mmol/L Normal 3.5-5.1 [facility] Comment on above: Performed By: #### L 500.4050, L100.0100 #### [facility] [address] [place], [address] Sodium [Moles/Vol] 137 mmol/L Normal 136-145 [facility] Comment on above: Performed By: #### L 500.4050, L100.0100 #### [facility] [address] [place], [address] Urea nitrogen [Mass/Vol] 23 mg/dL High 7-18 [facility] Comment on above: Performed By: #### L 500.4050, L100.0100 #### [facility] [address] [place], [address] CBC W/Diff, Automatedon 01-0 8-2024 Absolute Lymph 1.38 X10 3/uL Normal 0.83-4.51 [facility] Comment on above: Performed By: #### L 500.4050, L100.0100 #### [facility] [address] [place], [address] Absolute Neut 7.3 X10 3/uL Normal 2.0-7.7 [facility] Comment on above: Performed By: #### L 500.4050, L100.0100 #### [facility] [address] [place], [address] Basophils/100 WBC (Bld) 0.2 % Normal 0-1 [facility] Comment on above: Performed By: #### L 500.4050, L100.0100 #### [facility] [address] [place], [address] Eosinophils/100 WBC (Bld) 1.7 % Normal 0-5 [facility] Comment on above: Performed By: #### L 500.4050, L100.0100 #### [facility] [address] [place], [address] Erythrocyte distribution width (RBC) [Ratio] 13.8 % Normal 11.6-14.6 [facility] Comment on above: Performed By: #### L 500.4050, L100.0100 #### [facility] [address] [place], [address] Hematocrit (Bld) [Volume fraction] 35.8 % Low 40-54 [facility] Comment on above: Performed By: #### L 500.4050, L100.0100 #### [facility] [address] [place], [address] Hemoglobin (Bld) [Mass/Vol] 12.2 g/dL Low 13.0-16.5 [facility] Comment on above: Performed By: #### L 500.4050, L100.0100 #### [facility] [address] [place], [address] IG% 0.700 Normal 0.0-0.9 [facility] Comment on above: Result Comment: IG% - Immature Granulocytes (promyelocytes, myelocytes and metamyelocytes) > 1% indicates that a LEFT SHIFT is Present. Performed By: #### L 500.4050, L100.0100 #### [facility] [address] [place], [address] Lymphocytes/100 WBC (Bld) 13.8 % Low 19-41 [facility] Comment on above: Performed By: #### L 500.4050, L100.0100 #### [facility] [address] [place], [address] MCH (RBC) [Entitic mass] 33.8 pg High 27.0-32.0 [facility] Comment on above: Performed By: #### L 500.4050, L100.0100 #### [facility] [address] [place], [address] MCHC (RBC) [Mass/Vol] 34.1 g/dL Normal 32-36 [facility] Comment on above: Performed By: #### L 500.4050, L100.0100 #### [facility] [address] [place], [address] MCV (RBC) [Entitic vol] 99.2 fL High 80-94 [facility] Comment on above: Performed By: #### L 500.4050, L100.0100 #### [facility] [address] [place], [address] Monocytes/100 WBC (Bld) 10.6 % High 0-10 [facility] Comment on above: Performed By: #### L 500.4050, L100.0100 #### [facility] [address] [place], [address] Neutrophils/100 WBC (Bld) 73.0 % High 47-70 [facility] Comment on above: Performed By: #### L 500.4050, L100.0100 #### [facility] [address] [place], [address] Nucleated RBC (Bld) [#/Vol] 0 10*3/uL Normal 0-5 [facility] Comment on above: Performed By: #### L 500.4050, L100.0100 #### [facility] [address] [place], [address] Platelet mean volume (Bld) [Entitic vol] 12.1 fL High 6.2-12.0 [facility] Comment on above: Performed By: #### L 500.4050, L100.0100 #### [facility] [address] [place], [address] Platelets (Bld) [#/Vol] 151 10*3/uL Normal 150-450 [facility] Comment on above: Performed By: #### L 500.4050, L100.0100 #### [facility] [address] [place], [address] RBC (Bld) [#/Vol] 3.61 10*6/uL Low 4.6-6.2 [facility] Comment on above: Performed By: #### L 500.4050, L100.0100 #### [facility] [address] [place], [address] RDW SD 49.9 fl High 35.1-43.9 [facility] Comment on above: Performed By: #### L 500.4050, L100.0100 #### [facility] [address] [place], [address] WBC (Bld) [#/Vol] 10.0 10*3/uL Normal 4.4-11.0 [facility] Comment on above: Performed By: #### L 500.4050, L100.0100 #### [facility] [address] [place], [address] Emergency Department Summary on 05-26-2024 Emergency Department Summary [facility] Medical Records Department [address] [place] [address] Emergency Department Summary 05/26/24 MR#: [id number] Acct: [id number] Name: ANTOINE PEREZ Rep #: [id number] : 1945 78 From: Paco Bailey MD PCP: Dr. Vinod Walker MD Status:ADM IN Location: [address] History of Present Illness Chief Complaint: [...] symptoms: No Recent Illness/Hospitalization : No PFSH [facility] Medical History Wears hearing aid Depression Alcohol [...] Hematologic/Lymphatic Prosper (more content not included)... Normal [facility] H AND P Exam - Hospitaliston 05-26-2024 H&P Exam - Hospitalist [facility] Records Department [address] [place] [address] H P Exam - Hospitalist 05/26/24 1623 MR#: [id number] Acct: [id number] Name: ANTOINE PEREZ Rep #: [id number] : 1945 78 From: Fabiola Lowery MD PCP: Dr. Vinod Walker MD Status:ADM IN Location: [facility] [id number] HPI - General General Date of Admission: 05/26/24 Date of Service: 05/26/24 Chief Complaint: Worsening R neck cellulitis, abscess. HPI Narrative The patient is a 78 y/o M w/ PMHx: Chronic macrocytic anemia, Obesity, Anxiety and Depression, Former tobacco use, PAF/Flutter, Chronic bradycardia, BPH with obstructive pathology, Nonischemic cardiomyopathy who presents to the [facility] ED on 05/26/24 with history of [...] g IV x 1. [facility] Medical History Wears hearing aid Depression Alcohol [...] cataract surgery (more content not included)... Normal [facility] MRSA Wound DNA by PCRon MRSA DNA ASSAY Negative Normal Negative [facility] Comment on above: Order Comment: subme ntal abscess Performed By: #### L 500.4050, L100.0100 #### [facility] [address] [place], [address] SA DNA ASSAY Negative Normal Negative [facility] Comment on above: Order Comment: subme ntal abscess Performed By: #### L 500.4050, L100.0100 #### [facility] [address] [place], [address] Soft Tissue Neck WITH Contra ston 05-26-2024 Soft Tissue Neck WITH Contrast [facility] Services [address] [place] [address] Soft Tissue Neck WITH Contrast MR#: [id number] Acct: [id number] Name: ANTOINE PEREZ Rep #: [id number] : 1945 M 78 From: Jesse roblero MD PCP: Dr. Vinod Walker MD Status: REG ER Study: Soft Tissue Neck WITH Contrast Date of Exam: 0 05/26/24 Exam# [id number] Ordering Dr: [place] [id number] INDICATION: submental abscess. CT BX PERFORMED 05/20/24 [...] , CC: Dr. Paco Bailey MD; Dr. Vinod Walker MD Farrowing Worker: Signed Normal [facility] Emergency Department Summary on 05-23-2024 Emergency Department Summary [facility] Medical Records Department [address] [place] [address] Emergency Department Summary 05/23/24 MR#: [id number] Acct: [id number] Name: ANTOINE PEREZ Rep #: [id number] : 1945 78 From: Torrey Leal MD PCP: Dr. Vinod Walker MD Status:REG ER Location: ED HPI [...] abscess that was getting ready to burst. [facility] Medical History Wears hearing aid Depression [...] Airway pat (more content not included)... Normal [facility] Operative Reporton 5 Operative Report [facility] Medical Records Department [address] [place] [address] Operative Report 05/20/24 0956 MR#: [id number] Acct: [id number] Name: ANTOINE PEREZ Rep #: [id number] : 1945 78 From: Linda Perez NP NAVIGATION TEACHER-C PCP: Dr. 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 Vinod Walker MD; Sharri Cisneros Signed Normal [facility] Partial Thromboplast Timeon 05-20-2024 aPTT Coag (Bld) [Time] 33.6 s Normal 24.1-36.2 [facility] Comment on above: Performed By: #### L 100.0100, L500.2500 #### [facility] [address] [place], [address] Platelet Counton 05-20-2024 Platelets (Bld) [#/Vol] 149 10*3/uL Low 150-450 [facility] Comment on above: Performed By: #### L 100.0100, L500.2500 #### [facility] [address] [place], [address] Prothrombin Time w/INRon INR Coag (PPP) [Relative time] 1.0 {INR} Normal [facility] Comment on above: Performed By: #### L 100.0100, L500.2500 #### [facility] [address] [place], [address] PT Coag (PPP) [Time] 13.7 s Normal 11.7-14.9 [facility] Comment on above: Performed By: #### L 100.0100, L500.2500 #### [facility] [place], [address] Special Stain Group IIon Special Stain Group II ------ Patient Age/Sex Location Account Attending Physician ANTOINE PEREZ 78/M CT [id number] Dr. Vinod Walker MD Specimen: [id number] Received: 05/20/24 Status: KAYLENE Hernandez Num: [id number] Spec Type: ASP RAD Subm Dr: Dr. Vinod Walker MD HEADER OPERATION: CT guided right [...] prepared at the time of core biopsy. SJ.mr 05/20/2024 TC: Cannot code CPT:05959,58540 Patient Age/Sex Location Account Attending Physician ANTOINE PEREZ 78/M CT [id number] Dr. Vinod Walker MD ADDENDUM Addendum 1 Entered: 05/25/24 Portion of the specimen is saved for flow cytometry study and is submitted in cassette 2 and shows skin with dermal chronic inflammation. SJ.mr 05/25/2024 Addendum Signed (signature on file) Dr. Gennaro Joe MD 05/25/24 1258 Patient Age/Sex Location Account Attending Physician ANTOINE PEREZ 78/M CT [id number] Dr. Vinod Walker MD Signed (signature on file) Dr. Gennaro Joe MD 05/21/24 1131 Normal [facility] Comment on above: Performed By: #### L 7000.5800 #### [facility] [address] [place], [place], [address] Special Stain Group II ------ Patient Age/Sex Location Account Attending Physician ANTOINE PEREZ 78/M CT [id number] Dr. Vinod Walker MD Specimen: [id number] Received: 05/20/24 Status: KAYLENE Hernandez Num: [id number] Spec Type: Fluid Subm Dr: Dr. Vinod Walker MD HEADER OPERATION:CT guided right neck [...] Mr 05/20/2024 TC: Can not code CPT: 87850,39745 Signed (signature on file) Dr. Gennaro Joe MD 05/21/24 1134 Normal [facility] Comment on above: Performed By: #### L 100.0100, L500.2500 #### [facility] [address] [place], [place], [address] Orbit Face Neck W/WO Contras ton 04-13-2024 Orbit Face Neck W/WO Contrast [facility] [address] [place], [place] [address] Orbit Face Neck W/WO Contrast MR#: [id number] Acct: [id number] Name: ANTOINE PEREZ Rep #: [id number] : 1945 78 From: Aries Donis MD PCP: Dr. Vinod Walker MD Status: [facility] Study: Orbit Face Neck W/WO Contrast Date of Exam: Exam# [id number] Ordering [place]: [place] [id number] STUDY: MRI ORBITS WITH AND WITHOUT CONTRAST [...] MD at 16:30 EST , CC: Dr. Vinod Walker MD Farrowing Worker: Signed Normal [facility] Abdomen Limitedon 03-19-2024 Abdomen Limited [facility] [address] [place] [address] Abdomen Limited MR#: [id number] Acct: [id number] Name: ANTOINE PEREZ Rep #: [id number] : 1945 M 78 From: Maxx mims MD PCP: Dr. Vinod Walker MD Status: REG CLI Study: Abdomen Limited Date of Exam: 03/19/24 Exam# [id number] Ordering [place]: [place] [id number] INDICATION: LIPOMA, LEFT LOWER BACK EXAMINATION: Ultrasound [...] MD at 1:33 EDT , CC: Dr. Vinod Walker MD Farrowing Worker: Signed Normal [facility] Basophil percentageOrdered B y: Vinod Walker on 09-17-2023 Chloride [Moles/Vol] 108 mmol/L 98-107 [facility] Glucose [Mass/Vol] 95 mg/dL 74-106 [facility] Potassium [Moles/Vol] 4.3 mmol/L 3.5-5.1 [facility] Sodium [Moles/Vol] 140 mmol/L 136-145 [facility] - Chemistry and C hemistry - challengeOrdered By: Vinod Walker on 09-17-2023 CO2 [Moles/Vol] 27.0 mmol/L 21.0-32.0 [facility] Urea nitrogen/Creatinine [Mass ratio] 33.6 mg/mg 10-20 [facility] No Panel InformationOrdered By: Vinod Walker on 09-17-2023 Estimated GFR (MDRD) Amer 137 mL/min >60 [facility] Comment on above: GFR Calc Estimated GFR (MDRD) Non-Af Amer 113 mL/min >60 [facility] Comment on above: Non- GFR Calc Serum or plasma calcium brittnee urement (mass/volume)Ordered By: Vinod Walker on 09-17-2023 Calcium [Mass/Vol] 9.1 mg/dL 8.5-10.1 [facility] Serum or plasma creatinine m easurement (mass/volume)Ordered By: Vinod Walker on 09-17-2023 Creatinine [Mass/Vol] 0.71 mg/dL 0.70-1.30 [facility] Comment on above: The validity of the calculated GFR & GFRAA in patients over 70 years has not been determined. Clinical correlation is essential. Serum or plasma urea nitroge n measurement (mass/volume)Ordered By: Vinod Walker on 09-17-2023 Urea nitrogen [Mass/Vol] 24 mg/dL 7-18 [facility] Thin prep Papanicolaou smear with manual screeningOrdered By: Vinod Walker on 09-17-2023 Thin prep Papanicolaou smear with manual screening 5 5-15 [facility] Absolute lymphocyte countOrd ered By: Vinod Walker on 09-09-2023 Lymphocytes Auto (Unsp spec) [#/Vol] 1.41 10*3/uL 0.83-4.51 [facility] Automated lymphocyte count a s percentage of total leukocytesOrdered By: Vinod Walker on 09-09-2023 Lymphocytes/100 WBC Auto (Unsp spec) 24.4 % 19-41 [facility] Basophil percentageOrdered B y: Vinod Kofi on 09-09-2023 Basophils/100 WBC (Bld) 0.3 % 0-1 [facility] Bilirubin [Mass/Vol] 0.60 mg/dL 0.20-1.00 [facility] Comment on above: For patients on eltr ombopag therapy, use of Dimension Torreon TBIL is not recommended. Chloride [Moles/Vol] 103 mmol/L 98-107 [facility] Eosinophils/100 WBC (Bld) 3.3 % 0-5 [facility] Glucose [Mass/Vol] 135 mg/dL 74-106 [facility] Comment on above: Fasting Glucose resu lt greater than or equal to 126 mg/dL suggests DIABETES MELLITUS per A.D.A. criteria. Hemoglobin (Bld) [Mass/Vol] 12.8 g/dL 13.0-16.5 [facility] Monocytes/100 WBC (Bld) 15.0 % 0-10 [facility] Neutrophils (Bld) [#/Vol] 3.3 10*3/uL 2.0-7.7 [facility] Neutrophils/100 WBC (Bld) 56.3 % 47-70 [facility] Potassium [Moles/Vol] 3.3 mmol/L 3.5-5.1 [facility] Protein [Mass/Vol] 7.4 g/dL 6.4-8.2 [facility] Sodium [Moles/Vol] 138 mmol/L 136-145 [facility] WBC (Bld) [#/Vol] 5.8 10*3/uL 4.4-11.0 [facility] Determination of erythrocyte mean corpuscular volume (MCV)Ordered By: Vinod Walker on 09-09-2023 MCV (RBC) [Entitic vol] 101.0 fL 80-94 [facility] Erythrocyte distribution wid th ratioOrdered By: Vinod Walker 09-09-2023 Erythrocyte distribution width (RBC) [Ratio] 13.9 % 11.6-14.6 [facility] Erythrocyte distribution wid th standard deviationOrdered By: Vinod Walker 09-09-2023 Erythrocyte distribution width (RBC) [Entitic vol] 51.6 fL 35.1-43.9 [facility] Hematocrit Auto (Bld) [Volum e fraction]Ordered By: Vinod Kofi on 09-09-2023 Hematocrit (Bld) [Volume fraction] 40.1 % 40-54 [facility] Immature granulocytes/100 WB C Auto (Bld)Ordered By: Vinod Walker 09-09-2023 Immature granulocytes/100 WBC (Bld) 0.700 % 0.0-0.9 [facility] Comment on above: IG% - Immature Granu locytes (promyelocytes, myelocytes and metamyelocytes) > 1% indicates that a LEFT SHIFT is Present. Laboratory - Chemistry and C hemistry - challengeOrdered By: Vinod Walker on 09-09-2023 Albumin/Globulin [Mass ratio] 1.0 {ratio} 0.9-2.4 [facility] ALP [Catalytic activity/Vol] 75 U/L 45-117 [facility] ALT [Catalytic activity/Vol] 24 U/L 16-61 [facility] CO2 [Moles/Vol] 29.0 mmol/L 21.0-32.0 [facility] Globulin (S) [Mass/Vol] 3.7 g/dL 2.2-4.2 [facility] Urea nitrogen/Creatinine [Mass ratio] 22.3 mg/mg 10-20 [facility] Laboratory - Hematology and Cell countsOrdered By: Vinod Walker on 09-09-2023 MCH (RBC) [Entitic mass] 32.2 pg 27.0-32.0 [facility] MCHC (RBC) [Mass/Vol] 31.9 g/dL 32-36 [facility] Nucleated RBC/100 WBC (Bld) [Ratio] 0 % 0-5 [facility] Platelet mean volume (Bld) [Entitic vol] 12.8 fL 6.2-12.0 [facility] Platelets (Bld) [#/Vol] 135 10*3/uL 150-450 [facility] No Panel InformationOrdered By: Vinod Walker on 09-09-2023 Estimated GFR (MDRD) Amer 105 mL/min >60 [facility] Comment on above: GFR Calc Estimated GFR (MDRD) Non-Af Amer 87 mL/min >60 [facility] Comment on above: Non- GFR Calc Vitamin D 25-Hydroxy 76.0 ng/mL [facility] Comment on above: Vitamin D 25(OH) Sta tus Range Deficiency <20 ng/mL (50nmol/L) Insufficiency 20 - 30 ng/mL (50 - 75 nmol/L) Sufficiency 30 - 100 ng/mL (75 - 250 nmol/L) Toxicity >100 ng/mL (>250 nmol/L) RBC Auto (Bld) [#/Vol]Ordere d By: Vinod Walker on 09-09-2023 RBC (Bld) [#/Vol] 3.97 10*6/uL 4.6-6.2 [facility] Serum or plasma calcium brittnee urement (mass/volume)Ordered By: Vinod Walker on 09-09-2023 Calcium [Mass/Vol] 9.0 mg/dL 8.5-10.1 [facility] Serum or plasma creatinine m easurement (mass/volume)Ordered By: Vinod Walker on 09-09-2023 Creatinine [Mass/Vol] 0.90 mg/dL 0.70-1.30 [facility] Comment on above: The validity of the calculated GFR & GFRAA in patients over 70 years has not been determined. Clinical correlation is essential. Serum or plasma thyroid stim ulating hormone (TSH) measurement (units/volume)Ordered By: Vinod Walker on 09-09-2023 TSH Qn 0.63 uIU/mL 0.358-3.74 [facility] Serum or plasma urea nitroge n measurement (mass/volume)Ordered By: Vinod Walker on 09-09-2023 Urea nitrogen [Mass/Vol] 20 mg/dL 7-18 [facility] Serum or plasma uric acid me asurement (mass/volume)Ordered By: Vinod Walker on 09-09-2023 Urate [Mass/Vol] 5.2 mg/dL 3.5-7.2 [facility] Comment on above: The drugs N-Acetylcy steine and Metamizole may falsely depress this assay. Thin prep Papanicolaou smear with manual screeningOrdered By: Vinod Walker on 09-09-2023 Thin prep Papanicolaou smear with manual screening 3.7 g/dL 3.2-5.0 [facility] Thin prep Papanicolaou smear with manual screening 14 U/L 15-37 [facility] Thin prep Papanicolaou smear with manual screening 6 5-15 [facility] Absolute lymphocyte countOrd ered By: Khanh Doran on 03-13-2023 Lymphocytes Auto (Unsp spec) [#/Vol] 1.72 10*3/uL 0.83-4.51 [facility] Basophil percentageOrdered B y: Khanh Doran on 03-13-2023 Basophils/100 WBC (Bld) 0.2 % 0-1 [facility] Bilirubin [Mass/Vol] 0.50 mg/dL 0.20-1.00 [facility] Comment on above: For patients on eltr ombopag therapy, use of Dimension Torreon TBIL is not recommended. Chloride [Moles/Vol] 103 mmol/L 98-107 [facility] Eosinophils/100 WBC (Bld) 3.3 % 0-5 [facility] Glucose [Mass/Vol] 130 mg/dL 74-106 [facility] Comment on above: Fasting Glucose resu lt greater than or equal to 126 mg/dL suggests DIABETES MELLITUS per A.D.A. criteria. Neutrophils (Bld) [#/Vol] 5.8 10*3/uL 2.0-7.7 [facility] Neutrophils/100 WBC (Bld) 67.9 % 47-70 [facility] Potassium [Moles/Vol] 3.9 mmol/L 3.5-5.1 [facility] Protein [Mass/Vol] 7.4 g/dL 6.4-8.2 [facility] Sodium [Moles/Vol] 138 mmol/L 136-145 [facility] WBC (Bld) [#/Vol] 8.6 10*3/uL 4.4-11.0 [facility] Blood erythrocytes count (nu mber/volume)Ordered By: Khanh Doran on 03-13-2023 RBC (Bld) [#/Vol] 3.87 10*6/uL 4.6-6.2 [facility] Blood hemoglobin measurement (mass/volume)Ordered By: Khanh Doran on 03-13-2023 Hemoglobin (Bld) [Mass/Vol] 12.7 g/dL 13.0-16.5 [facility] Blood lymphocytes/100 leukoc ytesOrdered By: Khanh Doran on 03-13-2023 Lymphocytes/100 WBC (Bld) 20.0 % 19-41 [facility] Blood monocytes/100 leukocyt esOrdered By: Khanh Doran on 03-13-2023 Monocytes/100 WBC (Bld) 8.3 % 0-10 [facility] Blood platelet mean volumeOr dered By: Khanh Doran on 03-13-2023 Platelet mean volume (Bld) [Entitic vol] 12.7 fL 6.2-12.0 [facility] Determination of erythrocyte mean corpuscular volume (MCV)Ordered By: Khanh Doran on 03-13-2023 MCV (RBC) [Entitic vol] 102.8 fL 80-94 [facility] Hematocrit Auto (Bld) [Volum e fraction]Ordered By: Khanh Doran on 03-13-2023 Hematocrit (Bld) [Volume fraction] 39.8 % 40-54 [facility] Laboratory - Chemistry and C hemistry - challengeOrdered By: Khanh Doran on 03-13-2023 ALP [Catalytic activity/Vol] 82 U/L 45-117 [facility] ALT [Catalytic activity/Vol] 27 U/L 16-61 [facility] CO2 [Moles/Vol] 26.0 mmol/L 21.0-32.0 [facility] Globulin (S) [Mass/Vol] 3.7 g/dL 2.2-4.2 [facility] Urea nitrogen/Creatinine [Mass ratio] 22.4 mg/mg 10-20 [facility] Laboratory - Hematology and Cell countsOrdered By: Khanh Doran on 03-13-2023 Erythrocyte distribution width (RBC) [Entitic vol] 52.4 fL 35.1-43.9 [facility] Erythrocyte distribution width (RBC) [Ratio] 13.7 % 11.6-14.6 [facility] Immature granulocytes/100 WBC (Bld) 0.300 % 0.0-0.9 [facility] Comment on above: IG% - Immature Granu locytes (promyelocytes, myelocytes and metamyelocytes) > 1% indicates that a LEFT SHIFT is Present. MCH (RBC) [Entitic mass] 32.8 pg 27.0-32.0 [facility] Nucleated RBC/100 WBC (Bld) [Ratio] 0 % 0-5 [facility] MCHC Auto (RBC) [Mass/Vol]Or dered By: Khanh Doran on 03-13-2023 MCHC (RBC) [Mass/Vol] 31.9 g/dL 32-36 [facility] No Panel InformationOrdered By: Khanh Doran on 03-13-2023 Estimated GFR (MDRD) Amer 95 mL/min >60 [facility] Comment on above: GFR Calc Estimated GFR (MDRD) Non-Af Amer 78 mL/min >60 [facility] Comment on above: Non- GFR Calc Thyroid Stimulating Hormone (TSH) 0.99 uIU/mL 0.358-3.74 [facility] Vitamin D 25-Hydroxy 61.3 ng/mL [facility] Comment on above: Vitamin D 25(OH) Sta tus Range Deficiency <20 ng/mL (50nmol/L) Insufficiency 20 - 30 ng/mL (50 - 75 nmol/L) Sufficiency 30 - 100 ng/mL (75 - 250 nmol/L) Toxicity >100 ng/mL (>250 nmol/L) Platelets bldOrdered By: Claribel Doran on 03-13-2023 Platelets (Bld) [#/Vol] 163 10*3/uL 150-450 [facility] Serum or plasma albumin brittnee urement (mass/volume)Ordered By: Khanh Doran on 03-13-2023 Albumin [Mass/Vol] 3.7 g/dL 3.2-5.0 [facility] Serum or plasma albumin/glob ulin mass ratioOrdered By: Khanh Doran on 03-13-2023 Albumin/Globulin [Mass ratio] 1.0 {ratio} 0.9-2.4 [facility] Serum or plasma calcium brittnee urement (mass/volume)Ordered By: Khanh Doran on 03-13-2023 Calcium [Mass/Vol] 8.8 mg/dL 8.5-10.1 [facility] Serum or plasma creatinine m easurement (mass/volume)Ordered By: Khanh Doran on 03-13-2023 Creatinine [Mass/Vol] 0.98 mg/dL 0.70-1.30 [facility] Comment on above: The validity of the calculated GFR & GFRAA in patients over 70 years has not been determined. Clinical correlation is essential. Serum or plasma urea nitroge n measurement (mass/volume)Ordered By: Khanh Doran on 03-13-2023 Urea nitrogen [Mass/Vol] 22 mg/dL 7-18 [facility] Serum or plasma uric acid me asurement (mass/volume)Ordered By: Khanh Doran on 03-13-2023 Urate [Mass/Vol] 4.7 mg/dL 3.5-7.2 [facility] Comment on above: The drugs N-Acetylcy steine and Metamizole may falsely depress this assay. Thin prep Papanicolaou smear with manual screeningOrdered By: Khanh Doran on 03-13-2023 Thin prep Papanicolaou smear with manual screening 13 U/L 15-37 [facility] Thin prep Papanicolaou smear with manual screening 9 5-15 [facility] Absolute lymphocyte countOrd ered By: Dr. Walker on 09-04-2022 Lymphocytes Auto (Unsp spec) [#/Vol] 1.42 10*3/uL 0.83-4.51 [facility] Basophil percentageOrdered B y: Dr. Walker on 09-04-2022 Chloride [Moles/Vol] 106 mmol/L 98-107 [facility] Glucose [Mass/Vol] 120 mg/dL 74-106 [facility] Comment on above: Fasting Glucose resu lt from 100 to 125 mg/dL suggests IMPAIRED HOMEOSTASIS per A.D.A. criteria. Potassium [Moles/Vol] 3.5 mmol/L 3.5-5.1 [facility] Sodium [Moles/Vol] 138 mmol/L 136-145 [facility] Basophils/100 WBC (Bld) 0.2 % 0-1 [facility] Bilirubin [Mass/Vol] 0.40 mg/dL 0.20-1.00 [facility] Comment on above: For patients on eltr ombopag therapy, use of Dimension Torreon TBIL is not recommended. Eosinophils/100 WBC (Bld) 2.5 % 0-5 [facility] Neutrophils (Bld) [#/Vol] 6.4 10*3/uL 2.0-7.7 [facility] Neutrophils/100 WBC (Bld) 70.5 % 47-70 [facility] Protein [Mass/Vol] 7.0 g/dL 6.4-8.2 [facility] WBC (Bld) [#/Vol] 9.1 10*3/uL 4.4-11.0 [facility] Blood erythrocytes count (nu mber/volume)Ordered By: Dr. Walker on 09-04-2022 RBC (Bld) [#/Vol] 3.78 10*6/uL 4.6-6.2 [facility] Blood hemoglobin measurement (mass/volume)Ordered By: Dr. Walker on 09-04-2022 Hemoglobin (Bld) [Mass/Vol] 12.6 g/dL 13.0-16.5 [facility] Blood lymphocytes/100 leukoc ytesOrdered By: Dr. Walker on 09-04-2022 Lymphocytes/100 WBC (Bld) 15.7 % 19-41 [facility] Blood monocytes/100 leukocyt esOrdered By: Dr. Walker on 09-04-2022 Monocytes/100 WBC (Bld) 10.8 % 0-10 [facility] Blood platelet mean volumeOr dered By: Dr. Walker on 09-04-2022 Platelet mean volume (Bld) [Entitic vol] 12.5 fL 6.2-12.0 [facility] Determination of erythrocyte mean corpuscular volume (MCV)Ordered By: Dr. Walker on 09-04-2022 MCV (RBC) [Entitic vol] 102.4 fL 80-94 [facility] Hematocrit Auto (Bld) [Volum e fraction]Ordered By: Dr. Walker on 09-04-2022 Hematocrit (Bld) [Volume fraction] 38.7 % 40-54 [facility] Laboratory - Chemistry and C hemistry - challengeOrdered By: Dr. Walker on 09-04-2022 CO2 [Moles/Vol] 27.0 mmol/L 21.0-32.0 [facility] Urea nitrogen/Creatinine [Mass ratio] 29.2 mg/mg 10-20 [facility] ALP [Catalytic activity/Vol] 92 U/L 45-117 [facility] ALT [Catalytic activity/Vol] 30 U/L 16-61 [facility] Globulin (S) [Mass/Vol] 3.3 g/dL 2.2-4.2 [facility] Laboratory - Hematology and Cell countsOrdered By: Dr. Walker on 09-04-2022 Erythrocyte distribution width (RBC) [Entitic vol] 51.6 fL 35.1-43.9 [facility] Erythrocyte distribution width (RBC) [Ratio] 13.5 % 11.6-14.6 [facility] Immature granulocytes/100 WBC (Bld) 0.300 % 0.0-0.9 [facility] Comment on above: IG% - Immature Granu locytes (promyelocytes, myelocytes and metamyelocytes) > 1% indicates that a LEFT SHIFT is Present. MCH (RBC) [Entitic mass] 33.3 pg 27.0-32.0 [facility] Nucleated RBC/100 WBC (Bld) [Ratio] 0 % 0-5 [facility] MCHC Auto (RBC) [Mass/Vol]Or dered By: Dr. Walker on 09-04-2022 MCHC (RBC) [Mass/Vol] 32.6 g/dL 32-36 [facility] No Panel InformationOrdered By: Dr. Walker on 09-04-2022 Estimated GFR (MDRD) Amer 102 mL/min >60 [facility] Comment on above: GFR Calc Estimated GFR (MDRD) Non-Af Amer 84 mL/min >60 [facility] Comment on above: Non- GFR Calc Thyroid Stimulating Hormone (TSH) 0.87 uIU/mL 0.358-3.74 [facility] Vitamin D 25-Hydroxy 71.4 ng/mL [facility] Comment on above: Vitamin D 25(OH) Sta tus Range Deficiency <20 ng/mL (50nmol/L) Insufficiency 20 - 30 ng/mL (50 - 75 nmol/L) Sufficiency 30 - 100 ng/mL (75 - 250 nmol/L) Toxicity >100 ng/mL (>250 nmol/L) Platelets bldOrdered By: Dr. Walker on 09-04-2022 Platelets (Bld) [#/Vol] 155 10*3/uL 150-450 [facility] Serum or plasma albumin brittnee urement (mass/volume)Ordered By: Dr. Walker on 09-04-2022 Albumin [Mass/Vol] 3.7 g/dL 3.2-5.0 [facility] Serum or plasma albumin/glob ulin mass ratioOrdered By: Dr. Walker on 09-04-2022 Albumin/Globulin [Mass ratio] 1.1 {ratio} 0.9-2.4 [facility] Serum or plasma calcium brittnee urement (mass/volume)Ordered By: Dr. Walker on 09-04-2022 Calcium [Mass/Vol] 9.2 mg/dL 8.5-10.1 [facility] Serum or plasma creatinine m easurement (mass/volume)Ordered By: Dr. Walker on 09-04-2022 Creatinine [Mass/Vol] 0.93 mg/dL 0.70-1.30 [facility] Comment on above: The validity of the calculated GFR & GFRAA in patients over 70 years has not been determined. Clinical correlation is essential. Serum or plasma urea nitroge n measurement (mass/volume)Ordered By: Dr. Walker on 09-04-2022 Urea nitrogen [Mass/Vol] 27 mg/dL 7-18 [facility] Serum or plasma uric acid me asurement (mass/volume)Ordered By: Dr. Walker on 09-04-2022 Urate [Mass/Vol] 4.5 mg/dL 3.5-7.2 [facility] Comment on above: The drugs N-Acetylcy steine and Metamizole may falsely depress this assay. Thin prep Papanicolaou smear with manual screeningOrdered By: Dr. Walker on 09-04-2022 Thin prep Papanicolaou smear with manual screening 5 5-15 [facility] Thin prep Papanicolaou smear with manual screening 20 U/L 15-37 [facility] No Panel InformationOrdered By: Dr. Corea on 07-10-2022 Prostate Specific Antigen Total 3.54 ng/mL 0.0-4.0 [facility] Comment on above: This test was perfor med using the TPSA assay method [facility] the[facility]. Values obtained with differentassay methods cannot be used interchangably.When changing PSA assays in the course of monitoring apatient, additional sequential testing should be carriedout to confirm baseline values. Absolute lymphocyte counton 03-06-2022 Lymphocytes Auto (Unsp spec) [#/Vol] 1.72 10*3/uL 0.83-4.51 [facility] Work Phone: Basophil percentageon 2021 Basophils/100 WBC (Bld) 0.3 % 0-1 [facility] Work Phone: Bilirubin [Mass/Vol] 0.50 mg/dL 0.20-1.00 [facility] Work Phone: Comment on above: For patients on eltr ombopag therapy, use of Dimension Torreon TBIL is not recommended. Chloride [Moles/Vol] 109 mmol/L 98-107 [facility]: Eosinophils/100 WBC (Bld) 4.1 % 0-5 [facility] Work Phone: Glucose [Mass/Vol] 83 mg/dL 74-106 [facility] Work Phone: Neutrophils (Bld) [#/Vol] 5.7 10*3/uL 2.0-7.7 [facility] Work Phone: Neutrophils/100 WBC (Bld) 65.7 % 47-70 [facility] Work Phone: Potassium [Moles/Vol] 3.8 mmol/L 3.5-5.1 [facility] Work Phone: Protein [Mass/Vol] 7.3 g/dL 6.4-8.2 [facility] Work Phone: Sodium [Moles/Vol] 144 mmol/L 136-145 [facility] Work Phone: WBC (Bld) [#/Vol] 8.7 10*3/uL 4.4-11.0 [facility] Work Phone: Blood erythrocytes count (nu mber/volume)on 03-06-2022 RBC (Bld) [#/Vol] 3.96 10*6/uL 4.6-6.2 [facility] Work [facility]: Blood hemoglobin measurement (mass/volume)on 03-06-2022 Hemoglobin (Bld) [Mass/Vol] 13.0 g/dL 13.0-16.5 [facility] Work Phone: Blood lymphocytes/100 leukoc yteson 03-06-2022 Lymphocytes/100 WBC (Bld) 19.8 % 19-41 [facility] Work Phone: Blood monocytes/100 leukocyt eson 03-06-2022 Monocytes/100 WBC (Bld) 9.8 % 0-10 [facility] Work Phone: Blood platelet mean volumeon 03-06-2022 Platelet mean volume (Bld) [Entitic vol] 13.4 fL 6.2-12.0 [facility] Work Phone: [phone] Determination of erythrocyte mean corpuscular volume (MCV)on 03-06-2022 MCV (RBC) [Entitic vol] 102.5 fL 80-94 [facility] Work Phone: [phone] Hematocrit Auto (Bld) [Volum e fraction]on 03-06-2022 Hematocrit (Bld) [Volume fraction] 40.6 % 40-54 [facility] Work Phone: Laboratory - Chemistry and C hemistry - challengeon 03-06-2022 ALP [Catalytic activity/Vol] 93 U/L 45-117 [facility] Work Phone: [phone] ALT [Catalytic activity/Vol] 26 U/L 16-61 [facility] Work Phone: [phone] CO2 [Moles/Vol] 29.0 mmol/L 21.0-32.0 [facility] Work Phone: [phone] Globulin (S) [Mass/Vol] 3.5 g/dL 2.2-4.2 [facility] Work Phone: [phone] Urea nitrogen/Creatinine [Mass ratio] 26.7 mg/mg 10-20 [facility] Work Phone: [phone] Laboratory - Hematology and Cell countson 03-06-2022 Erythrocyte distribution width (RBC) [Entitic vol] 53.2 fL 35.1-43.9 [facility] Work Phone: [phone] Erythrocyte distribution width (RBC) [Ratio] 13.9 % 11.6-14.6 [facility] Work Phone: [phone] Immature granulocytes/100 WBC (Bld) 0.300 % 0.0-0.9 [facility] Work Phone: [phone] Comment on above: IG% - Immature Granu locytes (promyelocytes, myelocytes and metamyelocytes) > 1% indicates that a LEFT SHIFT is Present. MCH (RBC) [Entitic mass] 32.8 pg 27.0-32.0 [facility] Work Phone: Nucleated RBC/100 WBC (Bld) [Ratio] 0 % 0-5 [facility] Work Phone: [phone] MCHC Auto (RBC) [Mass/Vol]on 03-06-2022 MCHC (RBC) [Mass/Vol] 32.0 g/dL 32-36 [facility] Work Phone: No Panel Informationon 03-06 Estimated GFR (MDRD) Amer 92 mL/min >60 [facility] Work Phone: Comment on above: GFR Calc Estimated GFR (MDRD) Non-Af Amer 76 mL/min >60 [facility] Work Phone: Comment on above: Non- GFR Calc Thyroid Stimulating Hormone (TSH) 0.76 uIU/mL 0.358-3.74 [facility] Work Phone: Vitamin D 25-Hydroxy 68.6 ng/mL [facility] Work Phone: Comment on above: Vitamin D 25(OH) Sta tus Range Deficiency <20 ng/mL (50nmol/L) Insufficiency 20 - 30 ng/mL (50 - 75 nmol/L) Sufficiency 30 - 100 ng/mL (75 - 250 nmol/L) Toxicity >100 ng/mL (>250 nmol/L) Platelets bldon 03-06-2022 Platelets (Bld) [#/Vol] 182 10*3/uL 150-450 [facility] Work Phone: [phone] Serum or plasma albumin brittnee urement (mass/volume)on 03-06-2022 Albumin [Mass/Vol] 3.8 g/dL 3.2-5.0 [facility] Work Phone: [phone] Serum or plasma albumin/glob ulin mass ratioon 03-06-2022 Albumin/Globulin [Mass ratio] 1.1 {ratio} 0.9-2.4 [facility] Work Phone: [phone] Serum or plasma calcium brittnee urement (mass/volume)on 03-06-2022 Calcium [Mass/Vol] 9.1 mg/dL 8.5-10.1 [facility] Work Phone: Serum or plasma creatinine m easurement (mass/volume)on 03-06-2022 Creatinine [Mass/Vol] 1.01 mg/dL 0.70-1.30 [facility] Work Phone: Comment on above: The validity of the calculated GFR & GFRAA in patients over 70 years has not been determined. Clinical correlation is essential. Serum or plasma urea nitroge n measurement (mass/volume)on 03-06-2022 Urea nitrogen [Mass/Vol] 27 mg/dL 7-18 [facility] Work Phone: Serum or plasma uric acid me asurement (mass/volume)on 03-06-2022 Urate [Mass/Vol] 4.3 mg/dL 3.5-7.2 [facility] Work Phone: Comment on above: The drugs N-Acetylcy steine and Metamizole may falsely depress this assay. Thin prep Papanicolaou smear with manual screeningon 03-06-2022 Thin prep Papanicolaou smear with manual screening 14 U/L 15-37 [facility] Work Phone: Thin prep Papanicolaou smear with manual screening 6 5-15 [facility] Work Phone: Laboratory - Microbiology an d Antimicrobial susceptibilityon 01-07-2022 SARS-CoV-2 (COVID-19) RNA PADDY+probe Ql (Unsp spec) Detected Not Detect [facility] Work Phone: Comment on above: Normal Reference Ran ge: Not DetectedMethod:(RT-PCR) real-time reverse transcriptase PCRLuminex MALLORY Instrument*The Food and Drug Administration (FDA) has issued an Emergency Use Authorization (EAU) for the MALLORY SARS-CoV-2 Assay for the rapid detection of [...] Auto (Unsp spec) [#/Vol] 1.76 10*3/uL 0.83-4.51 [facility] Work Phone: Basophil percentageon 2021 Basophils/100 WBC (Bld) 0.2 % 0-1 [facility] Work Phone: Bilirubin [Mass/Vol] 0.50 mg/dL 0.20-1.00 [facility] Work Phone: Comment on above: For patients on eltr ombopag therapy, use of Dimension Torreon TBIL is not recommended. Chloride [Moles/Vol] 104 mmol/L 98-107 [facility] Work Phone: Eosinophils/100 WBC (Bld) 4.0 % 0-5 [facility] Work Phone: Glucose [Mass/Vol] 95 mg/dL 74-106 [facility] Work Phone: Neutrophils (Bld) [#/Vol] 6.2 10*3/uL 2.0-7.7 [facility] Work Phone: Neutrophils/100 WBC (Bld) 66.8 % 47-70 [facility] Work Phone: Potassium [Moles/Vol] 4.3 mmol/L 3.5-5.1 [facility] Work Phone: Protein [Mass/Vol] 7.6 g/dL 6.4-8.2 [facility] Work Phone: Sodium [Moles/Vol] 141 mmol/L 136-145 [facility] Work Phone: WBC (Bld) [#/Vol] 9.2 10*3/uL 4.4-11.0 [facility] Work Phone: Blood erythrocytes count (nu mber/volume)on 09-05-2021 RBC (Bld) [#/Vol] 3.79 10*6/uL 4.6-6.2 [facility] [facility] Work Phone: Blood hemoglobin measurement (mass/volume)on 09-05-2021 Hemoglobin (Bld) [Mass/Vol] 12.4 g/dL 13.0-16.5 [facility] Work Phone: [phone] Blood lymphocytes/100 leukoc yteson 09-05-2021 Lymphocytes/100 WBC (Bld) 19.1 % 19-41 [facility] Work Phone: [phone] Blood monocytes/100 leukocyt eson 09-05-2021 Monocytes/100 WBC (Bld) 9.5 % 0-10 [facility] Work Phone: [phone] Blood platelet mean volumeon 09-05-2021 Platelet mean volume (Bld) [Entitic vol] 13.0 fL 6.2-12.0 [facility] Work Phone: [phone] Determination of erythrocyte mean corpuscular volume (MCV)on 09-05-2021 MCV (RBC) [Entitic vol] 101.6 fL 80-94 [facility] Work Phone: [phone] Hematocrit Auto (Bld) [Volum e fraction]on 09-05-2021 Hematocrit (Bld) [Volume fraction] 38.5 % 40-54 [facility] Work Phone: Laboratory - Chemistry and C hemistry - challengeon 09-05-2021 ALP [Catalytic activity/Vol] 95 U/L 45-117 [facility] Work Phone: [phone] ALT [Catalytic activity/Vol] 29 U/L 16-61 [facility] Work Phone: [phone] CO2 [Moles/Vol] 30.0 mmol/L 21.0-32.0 [facility] Work Phone: [phone] Globulin (S) [Mass/Vol] 3.8 g/dL 2.2-4.2 [facility] Work Phone: [phone] Urea nitrogen/Creatinine [Mass ratio] 33.8 mg/mg 10- [facility] Work Phone: [phone] Laboratory - Hematology and Cell countson 09-05-2021 Erythrocyte distribution width (RBC) [Entitic vol] 51.9 fL 35.1-43.9 [facility] Work Phone: [phone] Erythrocyte distribution width (RBC) [Ratio] 13.9 % 11.6-14.6 [facility] Work Phone: [phone] Immature granulocytes/100 WBC (Bld) 0.400 % 0.0-0.9 [facility] Work Phone: [phone] Comment on above: IG% - Immature Granu locytes (promyelocytes, myelocytes and metamyelocytes) > 1% indicates that a LEFT SHIFT is Present. MCH (RBC) [Entitic mass] 32.7 pg 27.0-32.0 [facility] Work Phone: [phone] Nucleated RBC/100 WBC (Bld) [Ratio] 0 % 0-5 [facility] Work Phone: [phone] MCHC Auto (RBC) [Mass/Vol]on 09-05-2021 MCHC (RBC) [Mass/Vol] 32.2 g/dL 32-36 [facility] Work Phone: [phone] Panel Informationon 09-05 Estimated GFR (MDRD) Amer 99 mL/min >60 [facility] Work Phone: [phone] Comment on above: GFR Calc Estimated GFR (MDRD) Non-Af Amer 82 mL/min >60 [facility] Work Phone: [phone] Comment on above: Non- GFR Calc Thyroid Stimulating Hormone (TSH) 1.01 uIU/mL 0.358-3.74 [facility] Work Phone: [phone] Vitamin D 25-Hydroxy 56.0 ng/mL [facility] Work Phone: [phone] Comment on above: Vitamin D 25(OH) Sta tus Range Deficiency <20 ng/mL (50nmol/L) Insufficiency 20 - 30 ng/mL (50 - 75 nmol/L) Sufficiency 30 - 100 ng/mL (75 - 250 nmol/L) Toxicity >100 ng/mL (>250 nmol/L) Platelets bldon 09-05-2021 Platelets (Bld) [#/Vol] 194 10*3/uL 150-450 [facility] Work Phone: Serum or plasma albumin brittnee urement (mass/volume)on 09-05-2021 Albumin [Mass/Vol] 3.8 g/dL 3.2-5.0 [facility] Work Phone: [phone] Serum or plasma albumin/glob ulin mass ratioon 09-05-2021 Albumin/Globulin [Mass ratio] 1.0 {ratio} 0.9-2.4 [facility] Work Phone: [phone] Serum or plasma calcium brittnee urement (mass/volume)on 09-05-2021 Calcium [Mass/Vol] 8.6 mg/dL 8.5-10.1 [facility] Work Phone: [phone] Serum or plasma creatinine m easurement (mass/volume)on 09-05-2021 Creatinine [Mass/Vol] 0.95 mg/dL 0.70-1.30 [facility] Work Phone: Comment on above: The validity of the calculated GFR & GFRAA in patients over 70 years has not been determined. Clinical correlation is essential. Serum or plasma urea nitroge n measurement (mass/volume)on 09-05-2021 Urea nitrogen [Mass/Vol] 32 mg/dL 7-18 [facility] Work Phone: [phone] Serum or plasma uric acid me asurement (mass/volume)on 09-05-2021 Urate [Mass/Vol] 5.1 mg/dL 3.5-7.2 [facility] Work Phone: Comment on above: The drugs N-Acetylcy steine and Metamizole may falsely depress this assay. Thin prep Papanicolaou smear with manual screeningon 09-05-2021 Thin prep Papanicolaou smear with manual screening 15 U/L 15-37 [facility] Work Phone: Thin prep Papanicolaou smear with manual screening 7 5-15 [facility] Work Phone: No Panel Informationon 07-04 Prostate Specific Antigen Total 3.94 ng/mL 0.0-4.0 [facility] Work Phone: Comment on above: This test was perfor med using the TPSA assay method [facility] the[facility]. Values obtained with differentassay methods cannot be used interchangably.When changing PSA assays in the course of monitoring apatient, additional sequential testing should be carriedout to confirm baseline values. Basophil percentageon 2021 Bilirubin [Mass/Vol] 0.50 mg/dL 0.20-1.00 [facility] Work Phone: [phone] Comment on above: For patients on eltr ombopag therapy, use of Dimension [place] TBIL is not recommended. Cholesterol [Mass/Vol] 158 mg/dL <200 [facility] Work Phone: Comment on above: <200 mg/dL Desirable 200-240 mg/dL Borderline >240 mg/dL High Risk Protein [Mass/Vol] 7.9 g/dL 6.4-8.2 [facility] Work Phone: [phone] Triglyceride [Mass/Vol] 128 mg/dL [facility] Work Phone: [phone] Comment on above: The drugs N-Acetylcy steine and Metamizole may falsely depress this assay.Serum Triglycerides Reference Interval Normal <150 mg/dL Borderline high 150 - 199 mg/dL High 200 - 499 mg/dL Very High > or = 500 mg/dL Direct bilirubinon Bilirubin.direct [Mass/Vol] 0.17 mg/dL 0.00-0.30 [facility] Work Phone: [phone] Laboratory - Chemistry and C hemistry - challengeon 06-26-2021 ALP [Catalytic activity/Vol] 96 U/L 45-117 [facility] Work Phone: [phone] ALT [Catalytic activity/Vol] 25 U/L 16-61 [facility] Work Phone: [phone] Globulin (S) [Mass/Vol] 4.0 g/dL 2.2-4.2 [facility] Work Phone: Natriuretic peptide B (Bld) [Mass/Vol] 74.6 pg/mL 0-100 [facility] Work Phone: Serum or plasma albumin brittnee urement (mass/volume)on 06-26-2021 Albumin [Mass/Vol] 3.9 g/dL 3.2-5.0 [facility] Work Phone: Serum or plasma cholesterol in HDL measurement (mass/volume)on 06-26-2021 Cholesterol in HDL [Mass/Vol] 51 mg/dL [facility] Work Phone: Comment on above: The drugs N-Acetylcy steine and Metamizole may falsely depress this assay. Reference Range HDL <40 mg/dL Low HDL Cholesterol HDL >or= 60 mg/dL High HDL Cholesterol Serum or plasma cholesterol in VLDL measurement (mass/volume)on 06-26-2021 Cholesterol in VLDL [Mass/Vol] 26 mg/dL 5-40 [facility] Work Phone: Serum or plasma low density lipoprotein (LDL) cholesterol measurement (mass/volume)on 06-26-2021 Cholesterol in LDL [Mass/Vol] 81 mg/dL 0-130 [facility] Work Phone: Thin prep Papanicolaou smear with manual screeningon 06-26-2021 Thin prep Papanicolaou smear with manual screening 12 U/L 15-37 [facility] Work Phone: CNNURSEon 08-04-2020 [facility] Nurse Visit (COVAMD) ANTOINE PEREZ ([id number]) 1945 M Date Time Provider Department 08/04/20 HOWARD HAQ) [facility] During your visit today, we recorded the following information about you: Allergies As of Date: 08/04/2020 Noted Allergy Reaction SULFA (SULFONAMIDE ANTIBIOTICS) 02/06/2012 4 - Hives Comments: childhood Date Reviewed: 10/12/2019 Reviewed by: Jeferson Chirinos Ma - Fully Assessed Order(s):[facility] SARS-COV-2 VACCINE 2D DOSE APPT [[id number]] Order #: [id number] Prescriptions as of 08/04/2020 Sig: MELOXICAM 15 [...] knee arthroplasty, right [Z96.651] 07/21/2019 Encounter Status:Open [facility] CBC AND ELECTRONIC DIFFon Basophils (Bld) [#/Vol] 10*3/uL Normal 0.00-0.09 [facility] Comment on above: Performed By: #### L [id number] #### [facility] (DEFAULT) [address] [place] [address] Basophils/100 WBC (Bld) 0.3 % Normal [facility] Comment on above: Performed By: #### L [id number] #### [facility] (DEFAULT) [address] [address] DIFF STATUS Electronic Differential Normal [facility] Comment on above: Performed By: #### L [id number] #### [facility] (DEFAULT) [address] [place] [address] Eosinophils (Bld) [#/Vol] 0.34 10*3/uL Normal 0.00-0.48 [facility] Comment on above: Performed By: #### L [id number] #### [facility] (DEFAULT) [address] [address] Eosinophils/100 WBC (Bld) 3.8 % Normal [facility] Comment on above: Performed By: #### L [id number] #### [facility] (DEFAULT) [address] [address] Hematocrit (Bld) [Volume fraction] 40.1 % Normal 39.6-48.8 [facility] Comment on above: Performed By: #### L [id number] #### [facility] (DEFAULT) [address] [address] Hemoglobin (Bld) [Mass/Vol] 13.4 g/dL Normal 13.4-16.8 [facility] Comment on above: Performed By: #### L [id number] #### [facility] (DEFAULT) [address] [address] Immature Grans % 0.5 % Normal [facility] Comment on above: Performed By: #### L [id number] #### [facility] (DEFAULT) [address] [address] Immature Grans Absolute 0.04 K/uL Normal <=0.08 [facility] Comment on above: Performed By: #### L [id number] #### [facility] (DEFAULT) [address] [place] [address] Lymphocytes (Bld) [#/Vol] 1.99 10*3/uL Normal 0.83-3.57 [facility] Comment on above: Performed By: #### L [id number] #### [facility] (DEFAULT) [address] [place] [address] Lymphocytes/100 WBC (Bld) 22.5 % Normal [facility] Comment on above: Performed By: #### L [id number] #### [facility] (DEFAULT) [address] [address] MCV (RBC) [Entitic vol] 97.3 fL High 79.0-94.5 [facility] Comment on above: Performed By: #### L [id number] #### [facility] (DEFAULT) [address] [place] [address] Mean Cell Hgb 32.5 pg Normal 26.1-33.3 [facility] Comment on above: Performed By: #### L [id number] #### [facility] (DEFAULT) [address] [place] [address] Mean Cell Hgb Conc 33.4 g/dL Normal 31.9-36.5 [facility] Comment on above: Performed By: #### L [id number] #### [facility] (DEFAULT) [address] [place] [address] Monocytes (Bld) [#/Vol] 0.79 10*3/uL Normal 0.24-0.93 [facility] Comment on above: Performed By: #### L AB980 #### [facility] (DEFAULT) [address] [place] [address] Monocytes/100 WBC (Bld) 8.9 % Normal [facility] Comment on above: Performed By: #### L [id number] #### [facility] (DEFAULT) [address] [place] [address]11 Nucleated RBC 0.0 /100 WBC Normal <=0.2 [facility] Comment on above: Performed By: #### L [id number] #### [facility] (DEFAULT) [address] [place] [address] Platelet mean volume (Bld) [Entitic vol] 13.0 fL High 8.7-12.3 [facility] Comment on above: Performed By: #### L [id number] #### [facility] (DEFAULT) [address] [place] [address] Platelets (Bld) [#/Vol] 147 10*3/uL Normal 146-337 [facility] Comment on above: Performed By: #### L [id number] #### [facility] (DEFAULT) [address] [place] [address] RBC (Bld) [#/Vol] 4.12 10*6/uL Low 4.38-5.83 [facility] Comment on above: Performed By: #### L [id number] #### [facility] (DEFAULT) [address] [address] RBC Distribution 13.4 % Normal 10.9-14.3 [facility] Comment on above: Performed By: #### L AB980 #### [facility] (DEFAULT) [address] [address] Segs + Bands Auto 64.0 % Normal [facility] Comment on above: Performed By: #### L [id number] #### [facility] (DEFAULT) [address] [address] Segs + Bands,Absolute Auto 5.67 K/uL Normal 1.57-6.19 [facility] Comment on above: Performed By: #### L [id number] #### [facility] (DEFAULT) [address] [place] [address] WBC (Bld) [#/Vol] 8.86 10*3/uL Normal 3.73-10.10 [facility] Comment on above: Performed By: #### L [id number] #### [facility] (DEFAULT) [address] [place] [address] CHEM 7 (LYTES,BUN,CREA,GLUC) on 08-03-2020 Anion gap [Moles/Vol] 16 mmol/L Normal 7-[address] [facility] Comment on above: Performed By: #### C HM7 #### [facility] (DEFAULT) [address] [place] [address] Chloride [Moles/Vol] 105 mmol/L Normal 98-108 [facility] Comment on above: Performed By: #### C HM7 #### [facility] (DEFAULT) [address] [address] CO2 [Moles/Vol] 26 mmol/L Normal 22-30 [facility] Comment on above: Performed By: #### C HM7 #### [facility] (DEFAULT) [address] [address] Creatinine [Mass/Vol] 0.72 mg/dL Normal 0.70-1.[address] [facility] Comment on above: Performed By: #### C HM7 #### [facility] (DEFAULT) [address] [address] EST GFR, >=60 Normal >=60 [facility] Comment on above: Performed By: #### C HM7 #### [facility] (DEFAULT) [address] [address] EST GFR,Non >=60 Normal >=60 [facility] Comment on above: Performed By: #### C HM7 #### [facility] (DEFAULT) [address] [address] Glucose [Mass/Vol] 126 mg/dL High 70-99 [facility] Comment on above: Performed By: #### C HM7 #### [facility] (DEFAULT) [address] [place] [address] Osmolality [Osmolality] 305 mosm/kg Normal 278-305 [facility] Comment on above: Performed By: #### C HM7 #### [facility] (DEFAULT) [address] [place] [address] Potassium [Moles/Vol] 3.7 mmol/L Normal 3.5-5.[address] [facility] Comment on above: Performed By: #### C HM7 #### [facility] (DEFAULT) [address] [place] [address] Sodium [Moles/Vol] 143 mmol/L Normal 133-143 [facility] Comment on above: Performed By: #### C HM7 #### [facility] (DEFAULT) [address] [place] [address] Urea nitrogen [Mass/Vol] 28 mg/dL High 7-22 [facility] Comment on above: Performed By: #### C HM7 #### [facility] (DEFAULT) [address] [place] [address] Urea nitrogen/Creatinine [Mass ratio] 39 mg/mg Normal [facility] Comment on above: Performed By: #### C HM7 #### [facility] (DEFAULT) [address] [place] [address] EP PROCEDURE - EPS/ABLATION/ DEVICEon 08-03-2020 EP [...] MONTHS - TO BE COMPLETED WITH HIS CRIMINALIST IN [place] ? ALL CARDIAC AND EP FOLLOW UP WITH HIS CRIMINALIST [place] - NO F/U AT [facility] ? HOME TODAY ? GIVE LASIX THIS AM ? INCREASE LOSARTAN TO 50MG PO BID ? CONTINUE TOPROL AND ELIQUIS Antoine Perez EP Procedure - EPS/Ablation/Device Ordering Physician: EDMUND PARRY Order #: [id number] Study Date: 08/03/2020 Patient Information Name MRN Description Antoine Perez [id number] 74 y.o. male Physicians Panel Physicians Referring [...] MONTHS - TO BE COMPLETED WITH HIS CRIMINALIST IN [place] ? ALL CARDIAC AND EP FOLLOW UP WITH HIS CRIMINALIST IN [place] - NO F/U AT [facility] ? HOME [...] (08/03/2020 9: (more content not included)... Normal [facility] PT,INR,PTTon 08-03-2020 aPTT Coag (Bld) [Time] 44.4 s High 24.0-34.3 [facility] Comment on above: Performed By: #### P TPTT #### [facility] (DEFAULT) [address] [address] INR Coag (PPP) [Relative time] 1.3 {INR} High 0.9-1.1 [facility] Comment on above: Performed By: #### P TPTT #### [facility] (DEFAULT) [address] [place] [address] PT Coag (PPP) [Time] 15.8 s High 11.9-14.2 [facility] Comment on above: Performed By: #### P TPTT #### [facility] (DEFAULT) [address] [place] [address] CNNURSEon 07-14-2020 [facility] Nurse Visit (COVAMD) ANTOINE PEREZ ([id number]) 1945 M Date Time Provider Department 07/14/20 2:25 PM COVID VACCINE [place] COVAMD During your visit today, we recorded the following information about you: Referring Provider: RENZO DÍAZ [[id number]] Allergies As of Date: 07/14/2020 Noted Allergy Reaction SULFA (SULFONAMIDE ANTIBIOTICS) 02/06/2012 4 - Hives Comments: childhood Date Reviewed: 10/12/2019 Reviewed by: Jeferson Chirinos Ma - Fully Assessed Primary Visit Diagnosis:Need for COVID-19 vaccine [Z23] Order(s):SARS-COVID VACCINE 1ST DOSE APPT [[id number]] Order #: [id number] PFIZER-BIONTECH COVID-19 VACCINE [[id number]] Order #: [id number] PFIZER SARS-COV-2 VACCINE 2D DOSE APPT [[id number]] Order #: [id number] FUTURE Prescriptions as of 07/14/2020 Sig: MELOXICAM [...] Encounter Status:Closed by HOWARD HAQ on 07/15/20 [facility] No Panel Information Influenza Types A,B Direct FA ([facility]) [facility] Work Phone: Vital Signs Date Time Vital Sign Value Performing Clinician Cely blum 10-12-2024 06:49-0400 Body height 172.[address] Vinod Walker MD Work Phone: [facility] 10-12-2024 06:49-0400 Body mass index (BMI) [Ratio] 35.1 kg/m2 Dr. Vinod Walker MD Work Phone: 1(863)178-161135 [place] [address] 10-12-2024 06:49-0400 Body weight 104.[address] Vinod Walker MD Work Phone: 0(916)642-242025 [place] [address] 10-12-2024 06:49-0400 Diastolic blood pressure 71 mm[Hg] Dr. Vinod Walker MD Work Phone: 4(017)010-186625 [place] [address] 10-12-2024 06:49-0400 Heart rate 54 /min Dr. Vinod Walker MD Work Phone: 8(006)725-045025 [place] [address] 10-12-2024 06:49-0400 Respiratory rate 18 /min Dr. Vinod Walker MD Work Phone: 8(827)336-664925 [place] [address] 10-12-2024 06:49-0400 SaO2% (BldA) [Mass fraction] 93 % Dr. Vinod Walker MD Work Phone: 4(651)437-017525 [place] [address] 10-12-2024 06:49-0400 Systolic blood pressure 122 mm[Hg] Dr. Vinod Walker MD Work Phone: 5(621)920-232825 [place] [address] 07-14-2023 14:11-0500 Body height 172.[address] Vinod Walker Work Phone: 1(599)966-854025 [place] [address] 07-14-2023 14:11-0500 Body mass index (BMI) [Ratio] 36.1 kg/m2 Dr. Vinod Walker Work Phone: 0(343)864-972835 [place] [address] 07-14-2023 14:11-0500 Body weight 107.[address] Vinod Walker Work Phone: 1(008)748-285825 [place] [address] 07-14-2023 14:11-0500 Diastolic blood pressure 52 mm[Hg] Dr. Vinod Walker Work Phone: 7(833)958-703135 [place] [address] 07-14-2023 14:11-0500 Heart rate 48 /min Dr. Vinod Walker Work Phone: 6(999)156-847635 [place] [address] 07-14-2023 14:11-0500 Respiratory rate 18 /min Dr. Vinod Walker Work Phone: [facility] 07-14-2023 14:11-0500 Systolic blood pressure 100 mm[Hg] Dr. Vinod Walker Work Phone: [facility] 03-19-2023 11:02-0400 Body temperature 97.6 [degF] Dr. Vinod Walker Work Phone: 8(644)906-982635 [place] [address] 03-19-2023 11:02-0400 Diastolic blood pressure 57 mm[Hg] Dr. Vinod Walker Work Phone: 0(757)050-541335 [place] [address] 03-19-2023 11:02-0400 Heart rate 45 /min Dr. Vinod Walker Work Phone: 9(903)647-778335 [place] [address] 03-19-2023 11:02-0400 Respiratory rate 16 /min Dr. Vinod Walker Work Phone: 0(049)791-578125 [place] [address] 03-19-2023 11:02-0400 SaO2% (BldA) [Mass fraction] 94 % Dr. Vinod Walker Work Phone: 6(793)783-171935 [place] [address] 03-19-2023 11:02-0400 Systolic blood pressure 141 mm[Hg] Dr. Vinod Walker Work Phone: 9(364)840-112625 [place] [address] 03-19-2023 07:10-0400 Body height 172.[address] Vinod Walker Work Phone: 6(432)773-715625 [place] [address] 03-19-2023 07:10-0400 Body mass index (BMI) [Ratio] 37.4 kg/m2 Dr. Vinod Walker Work Phone: 0(113)408-598835 [place] [address] 03-19-2023 07:10-0400 Body weight 111.[address] Vinod Walker Work Phone: 2(682)082-868181 [address] 01-14-2023 14:27-0400 Body mass index (BMI) [Ratio] 36.8 kg/m2 Dr. Vinod Walker Work Phone: 2(344)118-554035 [place] [address] 01-14-2023 14:27-0400 Body weight 109.[address] Vinod Walker Work Phone: [facility] 01-14-2023 14:27-0400 Diastolic blood pressure 84 mm[Hg] Dr. Vinod Walker Work Phone: [facility] 01-14-2023 14:27-0400 Heart rate 62 /min Dr. Vinod Walker Work Phone: 6(033)881-484035 [place] [address] 01-14-2023 14:27-0400 Respiratory rate 18 /min Dr. Vinod Walker Work Phone: 6(410)090-748235 [place] [address] 01-14-2023 14:27-0400 SaO2% (BldA) [Mass fraction] 92 % Dr. Vinod Walker Work Phone: 5(042)659-332935 [place] [address] 01-14-2023 14:27-0400 Systolic blood pressure 139 mm[Hg] Dr. Vinod Walker Work Phone: 8(832)356-863325 [place] [address] 06-27-2022 14:29-0500 Body height 172.[address] Vinod Walker Work Phone: 4(642)748-066125 [place] [address] 06-27-2022 14:21-0500 Body mass index (BMI) [Ratio] 35.4 kg/m2 Dr. Vinod Walker Work Phone: 1(714)842-676125 [place] [address] 06-27-2022 14:21-0500 Body weight 105.[address] Vinod Walker Work Phone: 5(517)337-771335 [place] [address] 06-27-2022 14:21-0500 Diastolic blood pressure 73 mm[Hg] Dr. Vinod Walker Work Phone: 3(186)141-944881 [address] 06-27-2022 14:21-0500 Heart rate 45 /min Dr. Vinod Walker Work Phone: 4(198)665-747635 [place] [address] 06-27-2022 14:21-0500 Respiratory rate 18 /min Dr. Vinod Walker Work Phone: 6(797)428-436235 [place] [address] 06-27-2022 14:21-0500 Systolic blood pressure 127 mm[Hg] Dr. Vinod Walker Work Phone: 1(901)036-731435 [place] [address] 01-08-2022 16:10-0400 Body temperature 97.2 [degF] Dr. Vinod Walker Work Phone: [facility] Work Phone: 01-08-2022 16:10-0400 Diastolic blood pressure 55 mm[Hg] Dr. Vinod Walker Work Phone: [facility] Work Phone: 01-08-2022 16:10-0400 Heart rate 41 /min Dr. Vinod Walker Work Phone: [facility] Work Phone: 01-08-2022 16:10-0400 Respiratory rate 16 /min Dr. Vinod Walker Work Phone: [facility] Work Phone: 01-08-2022 16:10-0400 SaO2% (BldA) [Mass fraction] 96 % Dr. Vinod Walker Work Phone: [facility] Work Phone: 01-08-2022 16:10-0400 Systolic blood pressure 145 mm[Hg] Dr. Vinod Walker Work Phone: [facility] Work Phone: 01-08-2022 14:46-0400 Body height 172.[address] Vinod Walker Work Phone: [facility] Work Phone: 01-08-2022 14:46-0400 Body mass index (BMI) [Ratio] 33.9 kg/m2 Dr. Vinod Walker Work Phone: [facility] Work Phone: 01-08-2022 14:46-0400 Body weight 101.[address] Vinod Walker Work Phone: [facility] [facility] Work Phone: 12-25-2021 14:39-0400 Body mass index (BMI) [Ratio] 34.2 kg/m2 Dr. Vinod Walker Work Phone: [facility] Work Phone: 12-25-2021 14:39-0400 Body weight 102.[address] Vinod Walker Work Phone: [facility] Work Phone: 12-25-2021 14:39-0400 Diastolic blood pressure 62 mm[Hg] Dr. Vinod Walker Work Phone: [facility] Work Phone: 12-25-2021 14:39-0400 Heart rate 45 /min Dr. Vinod Walker Work Phone: [facility] Work Phone: 12-25-2021 14:39-0400 Respiratory rate 16 /min Dr. Vinod Walker Work Phone: [facility] Work Phone: 12-25-2021 14:39-0400 Systolic blood pressure 112 mm[Hg] Dr. Vinod Walker Work Phone: [facility] Work Phone: 06-26-2021 14:40-0500 Body height 172.[address] Vinod Walker Work Phone: [facility] Work Phone: 06-26-2021 14:40-0500 Body mass index (BMI) [Ratio] 34.9 kg/m2 Dr. Vinod Walker Work Phone: [facility] Work Phone: 06-26-2021 14:40-0500 Body weight 104.[address] Vinod Walker Work Phone: [facility] Work Phone: 06-26-2021 14:40-0500 Diastolic blood pressure 73 mm[Hg] Dr. Vinod Walker Work Phone: [facility] Work Phone: 06-26-2021 14:40-0500 Heart rate 60 /min Dr. Vinod Walker Work Phone: [facility] Work Phone: 06-26-2021 14:40-0500 Respiratory rate 18 /min Dr. Vinod Walker Work Phone: [facility] Work Phone: 06-26-2021 14:40-0500 SaO2% (BldA) [Mass fraction] 98 % Dr. Vinod Walker Work Phone: [facility] Work Phone: 06-26-2021 14:40-0500 Systolic blood pressure 123 mm[Hg] Dr. Vinod Walker Work Phone: [facility] Work Phone: Encounters Encounter Date Encounter Type Care Provider Facility Start: 02-09-2025 End: 02-09-20[facility] Start: 12-08-2024 End: 12-08-[address] Vinod Walker MD -Laboratory Phy Office 3rd Flr Start: 12-08-2024 End: 12-08-[address] Vinod Walker MD Work Phone: -Laboratory Phy Office 3rd Flr Start: 10-12-2024 End: 10-12-2024 Patient encounter procedure Jules FRANKLIN -[facility] Work Phone: Start: 10-12-2024 End: 10-12-[address] Vinod Walker MD Work Phone: [facility] Work Phone: Start: 09-30-2024 End: 09-30-[address] Vinod Walker MD Work Phone: [facility] Work Phone: Start: 09-30-2024 End: 09-30-[address] Vinod Walker MD -Laboratory Work Phone: Start: 09-30-2024 End: 09-30-2024 ambulatory Vinod Walker Facility:[facility] Start: 09-13-2024 End: 09-13-[address] Vinod Walker MD -Laboratory Work Phone: Start: 09-13-2024 End: 09-13-2024 ambulatory Vinod Walker Facility:[facility] Start: 07-16-2024 Encounter for other preprocedural examination Linda Perez NP [facility] Start: 05-26-2024 ambulatory Fabiola Lowery Facility :[facility] Start: 05-26-2024 End: 05-31-2024 Evaluation and management of inpatient Fabiola L White Facility:[facility] Start: 05-23-2024 End: 05-23-2024 Emergency department patient visit Vinod Walker Facility:[facility] Start: 05-20-2024 ambulatory Sharricirilo Cisneros Facility: [facility] Start: 05-20-2024 End: 05-20-2024 ambulatory [facility] Manpreet Kofi Facility:[facility] Start: 04-13-2024 End: 04-13-2024 ambulatory [facility] Kofi Facility:[facility] Start: 03-19-2024 End: 03-19-2024 ambulatory Vinod Manpreet Walker Facility:[facility] Start: 09-17-2023 End: 09-17-[address] Vinod Walker Work Phone: [facility] Work Phone: Start: 09-17-2023 End: 09-17-[address] Vinod Walker Work Phone: [facility]-Laboratory, [employer] Office 3rd Flr Start: 09-09-2023 End: 09-09-[address] Vinod Walker Work Phone: [facility] Work Phone: Start: 09-09-2023 End: 09-09-[address] Vinod Walker Work Phone: [facility]-Laboratory, Phy Office 3rd Flr Start: 07-23-2023 End: 07-23-[address] Vinod Walker Work Phone: [facility] Work Phone: Start: 07-23-2023 End: 07-23-[address] [facility] Work [facility]: Start: 07-14-2023 End: 07-14-[address] Vinod Walker Work Phone: [facility] Work Phone: Start: 03-19-2023 End: 03-19-2023 Admission to same day surgery center Dr. Vinod Walker [facility] Start: 03-19-2023 End: 03-19-[address] Vinod Walker Work Phone: [facility] Work Phone: Start: 01-14-2023 End: 01-14-[address] Vinod Walker Work Phone: [facility] Work Phone: Start: 09-04-[address] [facility]od [facility] [address] Start: 08-30-2022 End: 08-30-[address] Vinod Walker Work Phone: [facility] Work Phone: Start: 08-30-2022 End: 08-30-[address] Vinod Walker Work Phone: [facility]-Pulmonary Services/Neurology Start: 07-10-2022 End: 07-10-[address] Vinod Walker Work Phone: [facility]-Laboratory Start: 06-27-2022 End: 06-27-[address] Vinod Walker Work Phone: [facility] Start: 03-06-2022 End: 03-06-[address] Vinod Walker Work Phone: [facility] Work Phone: Start: 03-06-2022 End: 03-06-[address] [facility]od Walker [facility] Start: 01-08-2022 End: 01-08-[address] Vinod Walker Work Phone: [facility] Work Phone: Start: 01-08-2022 End: 01-08-[address] Vinod Walker Work Phone: [facility]-Medical Surgical 3 Outp Start: 01-08-2022 End: 01-08-[address] Vinod Walker Work Phone: [facility]-Pulmonary Med [facility] Start: 01-07-2022 End: 01-07-[address] Vinod Walker Work Phone: [facility] Work Phone: Start: 01-07-2022 End: 01-07-[address] Vinod Walker Work Phone: [facility]-Pulmonary Services/Neurology Start: 12-25-2021 End: 12-25-[address] Vinod Walker Work Phone: [facility] Start: 09-05-2021 End: 09-05-[address] Vinod Walker [facility] Start: 07-04-2021 End: 07-04-[address] [facility] Start: 06-26-2021 End: 06-26-[address] [facility] Start: 08-03-2020 End: 08-03-2020 ambulatory RANDY WALKER Facility:[facility] Procedures Date Procedure Procedure Detail Performing Clinician Start: 09-30-2024 SARS-CoV-2, Influenz a & RSV (PCR) Dr. Vinod Walker MD Work Phone: Start: 09-13-2024 Vitamin D, 25-hydrox y measurement Dr. Vinod Walker MD Work Phone: Comment on above: Vitamin D StatusDefi ciency: <20 ng/mL (50nmol/L)Insufficiency: 20-30 ng/mL (50-75 nmol/L)Sufficiency: 30-100 ng/mL (75-250 nmol/L)Toxicity: >100 ng/mL (>250 nmol/L) Start: 03-19-2023 Cysto Direct Visuali zation (Not Applicable) Dr. Vinod Walker Work Phone: Influenza Types A,B Direct FA (JIGNA) Dr. Vinod Walker Work Phone: Respiratory syncytia l virus antigen assay Dr. Vinod Walker Work Phone: Plan of Treatment Date Care Activity Detail Author Start: 12-08-2024 Borrelia burgdorferi blot test [facility] Start: 10-12-2024 Evaluation of diagno stic study results [facility] Start: 03-19-2023 Patient discharge [facility] Start: 03-19-2023 End: 03-19-2023 [facility] Start: 03-19-2023 Ambulation without limitation [facility] Start: 03-19-2023 Medication education [facility] Start: 03-19-2023 Taking patient vital signs [facility] Laboratory data interpretation [facility] Patient referral [facility] Work Phone: [facility] Immunizations Immunization Date Immunization Notes Care Provider Fa cility 02-17-2024 influenza, injectabl e, quadrivalent, preservative free Dr. Vinod Walker MD Work Phone: [facility] 01-05-2020 influenza, injectabl e, quadrivalent, preservative free Dr. Vinod Walker Work Phone: [facility] 01-05-2020 influenza, seasonal, injectable Dr. Vinod Walker Work Phone: [facility] Payers Date Payer Category Payer Self-pay [id number] 2020 Unknown [id number] 2020 Medicare [id number] 1945 Unknown [id number] 2.16. [id number] Unknown [id number] Unknown [id number] 2.16.8 [id number] Unknown [id number] 2.16.8 [id number] Unknown [id number] 2.16.8 [id number] Unknown [id number] 2.16.8 40.1.212104.3.579.2.462 Unknown [id number] 2.16.8 40.1.356227.3.579.2.462 Unknown [id number] 2.16.8 40.1.501301.3.579.2.462 Unknown [id number] 2.16.8 40.1.636818.3.579.2.462 Unknown [id number] 2.16.8 40.1.582239.3.579.2.462 Unknown [id number] 2.16.8 40.1.238784.3.579.2.462 Unknown [id number] 2.16.8 40.1.994487.3.579.2.462 Unknown [id number] 2.16.8 40.1.863229.3.579.2.462 Unknown [id number] 2.16.8 40.1.210602.3.579.2.462 Unknown [id number] 2.16.8 40.1.924201.3.579.2.462 Unknown [id number] 2.16.8 40.1.347028.3.579.2.462 Unknown [id number] 2.16.8 40.1.381090.3.579.2.462 Unknown [id number] 2.16.8 40.1.318855.3.579.2.462 Unknown [id number] 2.16.8 40.1.464355.3.579.2.462 Unknown [id number] 2.16.8 40.1.444245.3.579.2.462 Social History Date Type Detail Facility Start: 06-26-2021 End: 07-14-2023 Tobacco smoking status NHIS Unknown if ever smoked [facility] Start: 11-16-2020 Occasional [facility] Start: 11-16-2020 None [facility] Start: 06-02-2020 Spouse/ Signif icant Other [facility] Start: 11-16-2020 Non-smoker [facility] Start: 1945 Sex Assigned At Male [facility] Start: 05-26-2024 Tobacco smoking status NHIS Ex-smoker (finding) [facility] Goals Date Patient Goal Desired Activity /State Mental Status Date Assessment Result Facility 03-19-2023 Cognitive function Voice/Name [facility] Work Phone: 01-08-2022 Cognitive function Voice/Name [facility] Work Phone: Clinical Notes 07-10-2020 to [...] atrial flutter chronic Ma y 2024 1:06pm [facility] Work Phone: 1(958) 685-100201-13-2025 [facility] Medical Records Department [address] [place] [address] Discharge Summary 05/31/24 1305 MR#: [id number] Acct: [id number] Name: ANTOINE PEREZ Rep #: [id number] : 1945 78 From: Keith Kuhn MD PCP: Dr. Vinod Walker MD Status:ADM IN [id number] Prov[facility] Date of Admission: 05/26/24 Date of Discharge: 05/31/24 Primary Care Physician: Dr. 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 Comment: Reason for Consult:: right neck [...] gel 1 applic topical DAILY PRN SKIN 10/12/21 losartan 50 mg tablet 50 mg PO [...] 650 mg PO Q12H (more content not included)...[facility]11-01-2023 Discharge summary Author Rudy Corea [facility] March 19, 2023 7:32am Note Date/Time March 19, 2023 7 :32am [facility] Medical Records Department [address] [place] [address] Instructions for Home/Discharge Instructions 03/19/23 0732 MR#: [id number] Acct: [id number] Name: ANTOINE PEREZ Rep #:[id number] : 1945 77 From: Rudy Corea MD PCP: Dr. Vinod Walker MD Status:REG S DC Discharge Instructions Diet Discharge Diet: No restrictions Activity Discharge Activity: Return to Normal Activity and May Not Drive (while taking narcotic pain medications.) Dressing / Incision Call your doctor if you observe: Fever of 101 or Higher Follow Up Care Please Follow Up With: Rudy Corea MD When: Call [phone] for an appointment Test Results: Test results from this visit will be discussed in further detail at your follow- up appointment, if applicable. Discharge Plan Admission Primary Reason for Your Visit: DVIU Attending Provider: Rudy Corea Primary Care Provider: Vinod Walker Chi Discharge Orders/Prescriptions Prescriptions: New ciprofloxacin [...] MD [Med Staff - Active Staff] - Vinod Walker Chi, MD [Primary Care Provider] - Disposition Disposition (needs filled in before D/C Order can be placed): Home, Self Care 03/19/23 0732<Electronically signed by Rudy Corea MD>Rudy Corea MD CC: Dr. Vinod Walker MD ~ Signed [facility] Work Phone: 1(764) 447-614411-01-2023 History and physical note Author Rudy Corea [facility] March 19, 2023 7:31am Note Date/Time March 19, 2023 7 :31am [facility] Medical Records Department [address] [place] [address] History & Physical Exam 03/19/23 0731 MR#: [id number] Acct: [id number] Name: ANTOINE PEREZ Rep #:[id number] : 1945 77 From: Rudy Corea MD PCP: Dr. Vinod Walker MD Status:REG S DC Location: [place] [address] History and Physical 77 yo male comes [...] ng/mL 4.87 mg/dl 5.30ng/ml 4.38 ng/ml Notes [facility] [address] [place], [address] This test was performed using the TPSA assay method for the Dimension chemistry system. Values obtained with different assay methods cannot be used interchangably. When changing PSA assays in the course of monitoring a patient, additional sequential testing should be carried out to confirm baseline values. [facility] [address] [place], [address] This test was performed using the TPSA assay method for the Dimension chemistry system. Values obtained with different assay methods cannot be used interchangably. When changing PSA assays in the course of monitoring a patient, additional sequential testing should be carried out to confirm baseline values. [facility] [address] [place], [address] This test was performed using the TPSA assay method for the Dimension chemistry system. Values obtained with different assay methods cannot be used interchangably. When changing PSA assays in the course of monitoring a patient, additional sequential testing should be carried out to confirm baseline values. [facility] [address] [place], [place] [address]. [place], [address] This test was performed using the TPSA assay method for the Dimension chemistry system. Values obtained with different assay methods cannot be used interchangably. When changing PSA assays in the course of monitoring a patient, additional sequential testing should be carried out to confirm baseline values. [facility] [address] [place] [address] [place], [address] This test was performed using the TPSA assay method for the Dimension chemistry system. Values obtained with different assay methods cannot be used interchangably. When changing PSA assays in the course of monitoring a patient, additional sequential testing should be carried out to confirm baseline values. Test performed at: [facility] [address] [place] [address] This test was performed using the TPSA assay method for the Dimension chemistry system. Values obtained with different assay methods cannot be used interchangably. When changing PSA assays in the course of monitoring a patient, additional sequential testing should be carried out to confirm baseline values. This test was performed using the TPSA assay method for the [employer] chemistry system. Values obtained with different assay methods cannot be used interchangably. When changing PSA assays in the course of monitoring a patient, additional sequential testing should be carried out to confirm baseline values. PROCEDURES: Flexible Cystoscopy - 335[address] Risks, benefits, and some of the potential [...] applicable): CC: Dr. Rudy Corea MD; Dr. Vinod Walker MD~ Signed [facility] Work Phone: 1(713) 565-967811-01-2023 Procedure [facility] 07-10-2020 NotePatient Outreach (COVAMN) ANTOINE PEREZ ([id number]) 1945 M Date Time Provider Department 07/10/20 WEATHERS, RENZO MEDLEY During your visit today, we recorded the following information about you: Allergies As of Date: 07/10/2020 Noted Allergy Reaction SULFA (SULFONAMIDE ANTIBIOTICS) 02/06/2012 4 - Hives Comments: childhood Date Reviewed: 10/12/2019 Reviewed by: Jeferson Chirinos Ma - Fully Assessed Order(s):SARS-COVID VACCINE 1ST DOSE APPT [22447WHC] Order #: [id number] FUTURE Prescriptions as of 07/10/2020 Sig: MELOXICAM [...] Text Encounter Status:Closed by ELAINE AGUAYO on 07/13/20[facility] Evaluation note* Diagnosis Onset Date Resolution Status Benign essential hypertension chronic Hyperlipidemia chronic Left bundle branch block (LBBB) chronic Typical atrial flutter chron ic Non-ischemic cardiomyopathy resolved [facility] Work Phone: Evaluation note* Diagnosis Onset Date Resolution Status Benign essential hypertension chronic Hyperlipidemia chronic Left bundle branch block (LBBB) chronic Typical atrial flutter chron ic Non-ischemic cardiomyopathy resolved COVID-19 acute [facility] Work Phone: Evaluation note* Diagnosis Onset Date Resolution Status On amiodarone therapy acute Benign essential hypertension chronic Hyperlipidemia chronic Left bundle branch block (LBBB) chronic Typical atrial flutter chron ic Non-ischemic cardiomyopathy resolved [facility] Work Phone: Evaluation noteNo assessment information available [facility] Work Phone: Hospital Discharge instructions Additional Instructions Implant Used?: [facility] Work Phone: Reason for referral (narrative)No reason for referral information available[facility] Work [facility]: Summary Purpose Family History [...] Will No June 02 7:47pm Power of Education Supervisor No June 02, 2020 7:47pm Advance Directive Response Recorded Date/ Time Name of Medical Power of Education Supervisor March 11, 2023 3:04pm Advance Directives Yes March 27, 2020 10:43am Living Will Yes March 11 3:04pm Power of Education Supervisor Yes March 11, 2023 3:04pm Advance Directive Response Recorded Date/ Time Advance Directives Yes March 27, 2020 10:43am Living Will Yes March 11 3:04pm Power of Education Supervisor Yes October 24th, 2023 3:04pm Advance Directive Response Recorded Date/ [...] Non-ischemic cardiomyopathy Chief Complaint 5 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 Vinod Walker MD Family Provider Active Dr. Vinod Walker MD Primary Care Provider Active Team Status: Inactive Member Role Status Dates Dr. Vinod Walker MD Primary Care Provider, Referring Provider Active Ottoniel Saini NAVIGATION TEACHER, NAVIGATION TEACHER-C Attending Provider Active Team Status: Inactive Member Role Status Dates Dr. Vinod Walker MD Primary Care Provider Active Dr. Rudy Corea MD Attending Provider, Referr ing Provider Active Team Status: Inactive Member Role Status Dates Dr. Vinod Walker MD Primary Care Provider Active Ottoniel Saini NAVIGATION TEACHER, NAVIGATION TEACHER-C Attending Provider, Referring Pro vider Active Team Status: Active Member Role Status Dates Dr. Vinod Walker MD Primary Care Provider, Attending Provider Active Team Status: Inactive Member Role Status Dates Dr. Vinod Walker MD Primary Care Provider, Attending Provider Active Team Status: Inactive Member Role Status Dates Dr. Vinod Walker MD Primary Care Provider Active Start: September 13, 2024 End: September 13, 2024 Dr. Vinod Walker MD Attending Provider Active Start: September 13, 2024 End: September 13, 2024 Dr. Vinod Walker MD Referring Provider Active Start: September 13, 2024 End: September 13, 2024 Team Status: Inactive Member Role Status Dates Dr. Vinod Walker MD Primary Care Provider Active Start: September 30, 2024 End: September 30, 2024 Dr. Vinod Walker MD Attending Provider Active Start: September 30, 2024 End: September 30, 2024 Team Status: Inactive Member Role Status Dates Dr. Vinod Walker MD Primary Care Provider Active Start: October 12, 2024 End: October 12, 2024 Dr. Vinod Walker MD Referring Provider Active Start: October 12, 2024 End: October 12, 2024 NOEMI Hussein Attending Provider Active St art: October 12, 2024 End: October 12, 2024 Team Status: Active Member Role/Relationship Status Dates Dr. Vinod Walker MD Family Provider Active Dr. Vinod Walker MD Primary Care Provider Active Team Status: Inactive Member Role/Relationship Status Dates Dr. Vinod Walker MD Primary Care Provider Active Start: September 13, 2024 End: September 13, 2024 Dr. Vinod Walker MD Attending Provider Active Start: September 13, 2024 End: September 13, 2024 Dr. Vinod Walker MD Referring Provider Active Start: September 13, 2024 End: September 13, 2024 Team Status: Inactive Member Role/Relationship Status Dates Dr. Vinod Walker MD Primary Care Provider Active Start: September 30, 2024 End: September 30, 2024 Dr. Vinod Walker MD Attending Provider Active Start: September 30, 2024 End: September 30, 2024 Team Status: Inactive Member Role/Relationship Status Dates Dr. Vinod Walker MD Primary Care Provider Active Start: October 12, 2024 End: October 12, 2024 Dr. Vinod Walker MD Referring Provider Active Start: October 12, 2024 End: October 12, 2024 NOEMI Hussein Attending Provider Active St art: October 12, 2024 End: October 12, 2024 Team Status: Inactive Member Role/Relationship Status Dates Dr. Vinod Walker MD Primary Care Provider Active Start: December 08, 2024 End: December 08, 2024 Dr. Vinod Walker MD Attending Provider Active Start: December [...] BE BASED ON THE PRIMARY CLINICAL RECORDS. [facility] [email or web address] provides no warranty or guarantee of the accuracy or completeness of information in this document.
== END | disposition home or self-care (01) ==
LOC: CVS 07:56
PROVIDERS: PCP Family Medicine Geriatric Medicine; Referring Provider Student in an Organized Health Care Education/Training Program; Visit Provider Student in an Organized Health Care Education/Training Program
DX: I48.92 Unspecified atrial flutter (principal)
CPT/HCPCS: 93225; 93226

== ENCOUNTER → 2025-05-05 | Outpatient (CLI) | payer MEDICARE, BC, SELFPAY ==
--- NOTE | 2025-05-05 13:04 | ECHOD_ITS ---
Reason For Study Reason For Study: ARRYHTHMIA Procedure This was a 2D Doppler, Color Flow transthoracic echocardiogram. Exam performed in department. Left Ventricle Normal LV size. Left ventricular systolic function is normal. The left ventricular ejection fraction is 55 %. No regional wall motion abnormalities noted. Right Ventricle Normal RV size. Normal systolic function. Atria Normal left atrium. Normal right atrium. Mitral Valve Normal mitral valve. Mild-Moderate (1-2+) eccentric mitral valve insufficiency. Tricuspid Valve Normal tricuspid valve. Aortic Valve Trisinus/trileaflet aortic valve. Pulmonic Valve Normal pulmonic valve. Great Vessels Normal aortic root. The pulmonary artery is normal size. Inferior vena cava collapse with respiration. Pericardium/Pleural No pericardial effusion. MMode/2D Measurements & Calculations LVIDd: 5.4 cm IVSd: 0.95 cm asc Aorta Diam: 3.8 cm LVIDs: 3.5 cm LVPWd: 0.74 cm RVDd: 4.5 cm FS: 33.8 % LAV(MOD-bp): 82.3 ml LVAd ap4: 41.8 cm2 LVAd ap2: 33.3 cm2 LAV(MOD-bp) Indexed: 39.8 ml/m2 LVLd ap4: 9.3 cm LVLd ap2: 8.6 cm LAV(MOD-sp2): 86.2 ml EDV(MOD-sp4): 152.2 ml EDV(MOD-sp2): 104.6 ml LAV(MOD-sp4): 70.7 ml EDV(sp4-el): 159.2 ml EDV(sp2-el): 109.3 ml LVAs ap4: 22.5 cm2 LVAs ap2: 18.3 cm2 LVLs ap4: 7.1 cm LVLs ap2: 7.2 cm ESV(MOD-sp4): 62.1 ml ESV(MOD-sp2): 39.8 ml ESV(sp4-el): 60.8 ml ESV(sp2-el): 39.6 ml EF(MOD-sp4): 59.2 % EF(MOD-sp2): 61.9 % EF(sp4-el): 61.8 % SV(MOD-sp4): 90.1 ml SV(MOD-sp2): 64.8 ml EDV(MOD-bp): 131.5 ml SI(MOD-sp4): 43.5 ml/m2 SI(MOD-sp2): 31.3 ml/m2 ESV(MOD-bp): 49.0 ml EF(MOD-bp): 62.7 % SV(sp4-el): 98.4 ml LA dimension(2D): 3.9 cm LA A4 area: 24.6 cm2 RA A4 area: 17.3 cm2 TAPSE: 3.3 cm Time Measurements MV dec time: 0.36 sec Doppler Measurements & Calculations MV E max navneet: 61.5 cm/sec Lat Peak E' Navneet: 7.0 cm/sec Med Peak E' Navneet: 7.1 cm/sec MV A max navneet: 74.0 cm/sec E/E' lat: 8.7 E/E' med: 8.7 MV E/A: 0.83 Ao V2 max: 156.6 cm/sec LV V1 max: 121.9 cm/sec MV dec slope: 172.0 cm/sec2 Ao max P.8 mmHg LV V1 max P.9 mmHg Ao V2 mean: 111.7 cm/sec LV V1 mean P.9 mmHg Ao mean P.5 mmHg LV V1 mean: 78.5 cm/sec Ao V2 VTI: 36.5 cm LV V1 VTI: 26.3 cm AV (velocity ratio): 0.72 PA V2 max: 150.5 cm/sec PI end-d navneet: 95.0 cm/sec TR max navneet: 292.3 cm/sec TR max P.2 mmHg ECHO/Echo Complete Interpretation Summary Normal LV size. Left ventricular systolic function is normal. The left ventricular ejection fraction is 55 %. Mild-Moderate (1-2+) eccentric mitral valve insufficiency. Ordering Physician: Jules Perez Referring Physician: Vinod Kirby Chi Performed By: Jon Bueno RDCS
== END | disposition home or self-care (01) ==
LOC: CVS 13:04
PROVIDERS: PCP Family Medicine Geriatric Medicine; Referring Provider Student in an Organized Health Care Education/Training Program; Visit Provider Student in an Organized Health Care Education/Training Program
DX: I48.3 Typical atrial flutter (principal)
CPT/HCPCS: 93306